=== PATIENT | female | born 1990 | race Caucasian/White ===

== ENCOUNTER 2018-02-09 09:54 | Emergency (ER) | payer OTHER, SELFPAY ==
[2018-02-09 09:55] VITALS: BP 155/88; PULSE 102; RESP 16; TEMP 36.8; O2SAT 99; BMI 30.1
--- NOTE | 2018-02-09 10:10 | CT_ITS ---
STUDY: CT ABDOMEN AND PELVIS WITH CONTRAST REASON FOR EXAM: Female, 27 years old. Left lower quadrant pain. History of prior right ectopic . RADIATION DOSAGE (If Supplied By Facility): CTDIvol = ( 10.69 ) mGy, DLP = ( 714.05 ) mGycm TECHNIQUE: Transaxial images were obtained from the dome of the diaphragm to the symphysis pubis without oral contrast. 100 ml of Isovue 300 contrast was administered. Sagittal and coronal images were reconstructed. Individualized dose optimization techniques were used for this CT. COMPARISON: Comparison is made with prior study dated January 17, 2017. FINDINGS: Mild degree of bibasilar atelectasis. The visualized portions of the heart are within normal limits. Normal liver. Normal gallbladder and extrahepatic biliary system. Normal spleen. Normal pancreas. Normal bilateral adrenal glands. Normal right kidney. Normal left kidney. There is a small hiatal hernia. Normal small intestine. There are multiple colonic diverticula consistent with diverticulosis. The appendix is visualized and appears normal. Normal abdominal aorta. Normal inferior vena cava. Normal retroperitoneum. Normal urinary bladder. Follicles are seen in both ovaries. Normal abdominal wall. Normal osseous structures. CT/Abdomen/Pelvis W IV Cont ONLY IMPRESSION: Sigmoid diverticula. Electronically Signed: Vance Laboy MD at 12:28 EDT Tel [phone], Service support ,
--- NOTE | 2018-02-09 10:12 | ED.VISSUMM ---
- ER Visit Summary Date of Service: 02/09/18 Chief Complaint: Abdominal pain History of Present Illness: The patient is a 27 F that last evening she developed a sharp constant pain in the left lower quadrant. She has a history of diverticulosis. This was discovered on a CT of the abdomen pelvis last year following a salpingo-oophorectomy secondary to ectopic . Patient notes no diarrhea or blood in the stool. She denies any urinary symptoms. No fevers. Physical Examination: Afebrile vital signs are stable Gen: Well-nourished well-developed Head: Normocephalic atraumatic Eyes: Perrl EOMI ENT: TMs clear no rhinorrhea moist mucous membranes Neck: Supple no lymphadenopathy no JVD nontender CVS: Regular rate rhythm no murmurs normal S1-S2 Respiratory: No distress clear to auscultation bilaterally chest nontender Abdomen: Soft tender to palpation with guarding and rebound in the left lower quadrant nondistended normal bowel sounds no masses Back: Nontender Extremity: Nontender no edema Skin: Normal color no rash Neuro: alert orientated ?3 CN II-XII intact normal strength sensation reflexes gait cerebellar Psych: Normal affect normal mood Test Results: White blood cell count is normal. Urinalysis is negative. CT abdomen pelvis demonstrates sigmoid diverticulosis. Emergency Department Course and Treatment: She received morphine and Zofran. Clinically she has diverticulitis. I am going to treat her with Cipro and Flagyl and a few [place]. She is to follow-up with primary care if not improving or return if worsening. Impression: 1. Sigmoid diverticulosis 2. Acute abdominal pain This note was generated with [employer] dictation software. It may contain incorrect words, spelling, and punctuation that were not noted in review of the chart prior to signing ED Disposition - Plan for ED Patient: Disposition: Home or Assisted Living Chief Complaint: Abd Pain Instructions: ED Diverticulosis Prescriptions: Hydrocodone Bitart/Apap 5-325 [[place] 5/325] 1 tab PO Q6H PRN PRN 3 Days #12 tab PRN Reason: Pain Metronidazole [Flagyl] 500 mg PO Q8 #30 tab Ciprofloxacin [Cipro] 500 mg PO BID #20 tab Referrals: Denton Harrison MD [STAFF PHYSICIAN] - As Needed
[2018-02-09 10:32] LABS: Absolute Lymphocyte Count 2.85 X10^3/ul (0.83-4.51); Absolute Neutrophil Count 5.5 X10^3/uL (2.0-7.7); Basophil# 0.06 X10^3/uL; Basophil% 0.6 % (0-1); Eosinophils% 5.3 % (0-5); Hematocrit 42.8 % (37-47); Hemoglobin 14.4 g/dl (12.0-15.0); Lymphocyte # 2.85 X10^3/ul (4.0); Lymphocyte % 30.2 % (19-41); Mean Corp Hgb Conc 33.6 g/gl (32-36); Mean Corpuscular Hgb 30.6 pg (27.0-32.0); Mean Corpuscular Volume 90.9 fL (81-99); Mean Platelet Vol. 9.6 fl (6.2-12.0); Monocyte# 0.52 X10^3/uL; Monocyte% 5.5 % (0-10); Neutrophil # 5.47 X10^3/uL (2.7-7.7); Neutrophil % 58.1 % (47-70); Platelet Count 333 K/mm3 (150-450); RBC Distribution Width CV 13.2 % (11.6-14.6); RBC Distribution Width SD 43.6 fl (35.1-43.9); Red Blood Count 4.71 M/mm3 (4.2-5.4); White Blood Count 9.4 K/mm3 (4.4-11.0)
[2018-02-09 10:32] LABS: Bacteria 0 SEEN /hpf (None Seen); Mucous, Urine 0 SEEN /hpf (<or=2+); Red Blood Cells-Urine 0 SEEN /hpf (0-5); White Blood Cells 0 SEEN /hpf (0-5)
[2018-02-09 10:37] LABS: POSITIVE COUNT NO; POSITIVE DIFFERENTIAL NO; POSITIVE MORPHOLOGY NO
[2018-02-09 10:41] LABS: ALB/GLOB Ratio 1.1 RATIO (0.9-2.4); AST(SGOT) 14 U/L (15-37); Alanine Aminotransfer ALT/SGPT 26 U/L (13-56); Albumin, Serum 4.2 g/dL (3.2-5.0); Alkaline Phosphatase 72 U/L (45-117); Anion Gap 8 (5-15); BUN 14 mg/dL (7-18); BUN/Creat Ratio 21.5 RATIO (10-20); Calcium,Total 8.8 mg/dL (8.5-10.1); Chloride 108 mmol/L (98-107); Creatinine, Serum 0.65 mg/dL (0.55-1.02); EST Glomerular Filtration Rate 114 mL/min (>60); Est Glom Filt Rate - Afr Amer 138 mL/min (>60); Estimated Creatinine Clearance 105.64 ml/min; Globulin 3.8 g/dL (2.2-4.2); Glucose 91 mg/dL (74-106); Potassium 3.8 mmol/L (3.5-5.1); Sodium Level 140 mmol/L (136-145)
[2018-02-09 10:49] LABS: Color, Urine Yellow (Yellow); Glucose, Dipstick Normal (Normal); Ketone-Dipstick Negative (Negative); Leukocyte Esterase-Dipstick 25 /ul (Negative); Nitrite-Dipstick Negative (Negative); Occult Blood-Urine Negative /ul (Negative); Protein-Dipstick Negative (Negative); Urine Bilirubin Dipstick Negative (Negative); Urine Clarity Clear (Clear); Urine Urobilinogen Normal (Normal)
[2018-02-09 10:57] LABS: Internal QC Validated? YES +Cl - CLEAR BKGD; Pregnancy, Urine Negative Negative
[2018-02-09 11:03] LABS: Squamous Epithelial Cells - UA 0-5 SEEN /hpf (5-10)
[2018-02-09] MEDS: Morphine 4 MG/ML Syringe IV (11:15)
[2018-02-09] MEDS: Ondansetron 4 MG/2 ML Vial IV (11:16)
[2018-02-09 12:36] VITALS: BP 131/87; PULSE 71; RESP 16; O2SAT 97
[2018-02-09 12:49] VITALS: BP 138/79; PULSE 81; RESP 16; O2SAT 98
== END 2018-02-09 12:50 | disposition home or self-care (01) ==
PROVIDERS: Emergency Provider Emergency Medicine
DX: R10.9 Unspecified abdominal pain (principal); K57.30 Diverticulosis of large intestine without perforation or abscess without bleeding; Z72.0 Tobacco use
CPT/HCPCS: 74177; 80053; 81001; 81025; 85025; 96374; 96375; 99283; Q9967; A4216; J2405

== ENCOUNTER 2018-03-09 11:00 | Emergency (ER) | payer OTHER, SELFPAY ==
[2018-03-09 11:01] VITALS: BP 147/81; PULSE 92; RESP 16; TEMP 37; O2SAT 96; BMI 30.7
--- NOTE | 2018-03-09 11:08 | RAD_ITS ---
STUDY: X-RAY - RIGHT FOOT CLINICAL: Female, 27 years old. Pain along the first metatarsophalangeal joint following injury. TECHNIQUE: 3 view(s) of the foot. COMPARISON: None. FINDINGS: There is a plantar calcaneal spur. Normal visualized subtalar, talonavicular, calcaneocuboid, tarsal and tarsometatarsal articulations. Normal metatarsi. Normal metatarsophalangeal joint of the great toe. There is a bipartite tibial sesamoid. Normal interphalangeal joint of the great toe. Normal phalanges of the great toe. Normal second through fifth metatarsophalangeal joints. Normal interphalangeal joints and phalanges of the lesser toes. The soft tissue structures are unremarkable. RAD/Foot min 3 Views IMPRESSION: Small plantar spur. Electronically Signed: Vance Laboy MD at 12:14 EDT Tel [phone], Service support ,
--- NOTE | 2018-03-09 11:13 | ED.VISSUMM ---
- ER Visit Summary Date of Service: 03/09/18 Chief Complaint: Right foot injury History of Present Illness: The patient is a 27 F who dropped a dog gate onto her right foot yesterday. She was not wearing shoes at the time. Patient states she wrapped it last night but today has pain anytime she dorsiflexes her toes. She denies paresthesias. Physical Examination: Vital signs are unremarkable. Patient sitting in bedside chair no acute distress. Right lower extremity examination reveals mild erythema with tenderness along the right great toe and along the first metatarsal. There is minimal edema. She has normal sensation and cap refill. She does have increased pain with dorsiflexion but does have full range of motion. Test Results: Right foot x-ray shows a small plantar spur but no evidence of fracture. Emergency Department Course and Treatment: Patient's foot was wrapped with an Jonathan wrap. She will continue to use Tylenol or ibuprofen as needed. Treatment Plan: [] Disposition: Discharge Impression: Crush injury right foot This note was generated with [employer] dictation software. It may contain incorrect words, spelling, and punctuation that were not noted in review of the chart prior to signing ED Disposition - Plan for ED Patient: Chief Complaint: Lower Extremity Injury Referrals: Care Physician,No Primary [Primary Care Provider] -
--- NOTE | 2018-03-09 12:30 | ED.DEP ---
ED Disposition - Plan for ED Patient: Disposition: Home or Assisted Living Chief Complaint: Lower Extremity Injury Instructions: ED Crush Injury Toe No Fx Referrals: Denton Harrison MD [STAFF PHYSICIAN] - As Needed
[2018-03-09 12:37] VITALS: BP 132/78; PULSE 82; RESP 16; O2SAT 98
== END 2018-03-09 12:37 | disposition home or self-care (01) ==
PROVIDERS: Emergency Provider Emergency Medicine
DX: S97.81XA Crushing injury of right foot, initial encounter (principal); W20.8XXA Other cause of strike by thrown, projected or falling object, initial encounter; Y93.9 Activity, unspecified; Y92.89 Other specified places as the place of occurrence of the external cause; Y99.9 Unspecified external cause status; Z72.0 Tobacco use; M76.891 Other specified enthesopathies of right lower limb, excluding foot
CPT/HCPCS: 73630; 99282

== ENCOUNTER 2018-08-04 17:59 | Emergency (ER) | payer OTHER, SELFPAY ==
[2018-08-04 18:00] VITALS: BP 146/95; PULSE 105; RESP 16; TEMP 36.4; O2SAT 98; BMI 30.1
--- NOTE | 2018-08-04 18:38 | ED.VISSUMM ---
- ER Visit Summary Date of Service: 08/04/18 Chief Complaint: Atraumatic left flank pain History of Present Illness: The patient is a 28 F past medical history of ovarian cyst. Patient is also had a prior right-sided ectopic for which she had that surgically removed in the tube. States last 2 days she has had left flank pain. At times it is worse. She denies any fever. Denies any trauma. Denies any dysuria or hematuria. She has never had a kidney stone. She has never had back surgery. She denies any radiation to her legs. She denies any numbness or tingling or weakness in her legs. Physical Examination: Well-appearing young female. present in the room. Vital signs are stable afebrile. H EENT exam unremarkable. Neck nontender. Lungs there to auscultation bilaterally. Heart regular rhythm no murmur. Abdomen soft nondistended normal bowel sounds no peritoneal signs. She is very minimal left lower quadrant tenderness. No hernias or masses. She is moving all 4 extremities are neurovascular intact. She has normal motor strength and sensation of both the upper and lower extremities. No cauda equina. No saddle anesthesia. Negative straight leg raise bilaterally. 5 out of 5 dorsi and plantar flexion. Negative straight leg raise. Back the spine is completely nontender from the cervical spine all the way down to the lumbar spine. Her right paraspinal area is nontender left paraspinal lower back and flank area is tender. This may be musculoskeletal. There is no ecchymosis or bruising there is no redness or warmth. Neurologic exam normal. Test Results: Urinalysis no signs of infection nor any blood. Urine test negative. Emergency Department Course and Treatment: Patient deferred any medications at this time. I did review old visits she has had multiple prior CTs of the abdomen and pelvis basically no prior history of any kidney stones seen. She has had diverticulosis but never had diverticulitis. Exam at 2044 patient is doing well. Abdomen is benign. She has had prior CTs of her abdomen none of which ever showed any kidney stones. She denied discussed her test results this very well may be musculoskeletal back pain. It could also be atypical presentation of a left ovarian cyst. She will follow-up if not improving. She only wants Tylenol and Motrin for pain. Treatment Plan: Motrin for pain. Hot shower warm bath. Follow-up if not improving. Disposition: Discharge Impression: Acute left flank pain related to musculoskeletal etiology. This note was generated with [employer] dictation software. It may contain incorrect words, spelling, and punctuation that were not noted in review of the chart prior to signing ED Disposition - Plan for ED Patient: Disposition: Home or Assisted Living Chief Complaint: Back Instructions: ED Neck Back Pain General Referrals: Giuseppe Fitzgerald MD [STAFF PHYSICIAN] - 3-5 Days if not improving Additional Instructions: Warm bath. To relax muscles. Massage. Motrin for pain and inflammation. This is not improving this could be atypical presentation of a left ovarian cyst. I gave you primary care physician to follow-up with.
[2018-08-04 18:48] LABS: Bacteria 0 SEEN /hpf (None Seen); Mucous, Urine 0 SEEN /hpf (<or=2+); Squamous Epithelial Cells - UA 0 SEEN /hpf (5-10)
[2018-08-04 18:51] LABS: Color, Urine Yellow (Yellow); Glucose, Dipstick Normal (Normal); Ketone-Dipstick Negative (Negative); Leukocyte Esterase-Dipstick 25 /ul (Negative); Nitrite-Dipstick Negative (Negative); Occult Blood-Urine 10 /ul (Negative); Protein-Dipstick Negative (Negative); Specific Gravity, Urine 1.015 (1.002-1.030); Urine Bilirubin Dipstick Negative (Negative); Urine Clarity Clear (Clear); Urine Urobilinogen Normal (Normal)
[2018-08-04 19:08] LABS: Internal QC Validated? YES +Cl - CLEAR BKGD; Pregnancy, Urine Negative Negative
[2018-08-04 19:32] LABS: Red Blood Cells-Urine 0-5 SEEN /hpf (0-5); White Blood Cells 0-5 SEEN /hpf (0-5)
--- NOTE | 2018-08-04 20:51 | ED.DEP ---
ED Disposition - Plan for ED Patient: Disposition: Home or Assisted Living Chief Complaint: Back Instructions: ED Neck Back Pain General Referrals: Giuseppe Fitzgerald MD [STAFF PHYSICIAN] - 3-5 Days if not improving Additional Instructions: Warm bath. To relax muscles. Massage. Motrin for pain and inflammation. This is not improving this could be atypical presentation of a left ovarian cyst. I gave you primary care physician to follow-up with.
[2018-08-04 20:53] VITALS: BP 121/66; PULSE 82; RESP 18; O2SAT 97
== END 2018-08-04 20:55 | disposition home or self-care (01) ==
PROVIDERS: Emergency Provider Emergency Medicine
DX: R10.9 Unspecified abdominal pain (principal); K57.90 Diverticulosis of intestine, part unspecified, without perforation or abscess without bleeding; M54.9 Dorsalgia, unspecified; Z72.0 Tobacco use
CPT/HCPCS: 81001; 81025; 99282

== ENCOUNTER 2018-09-30 09:22 | Emergency (ER) | payer OTHER, SELFPAY ==
[2018-09-30 09:23] VITALS: BP 137/75; PULSE 121; RESP 18; TEMP 36.4; O2SAT 99; BMI 30.1
--- NOTE | 2018-09-30 09:33 | RAD_ITS ---
STUDY: X-RAY - RIGHT WRIST REASON FOR EXAM: Female, 28 years old. Ane. TECHNIQUE: 3 view(s) of the wrist were obtained. COMPARISON: None. FINDINGS: Normal visualized distal radius and ulna. Normal radiocarpal articulation. Normal distal radioulnar articulation. Normal carpal bones. Normal carpal articulations. Normal carpometacarpal articulation of the thumb. Normal second through fifth carpometacarpal articulations. Normal visualized metacarpal bones. The soft tissue structures are unremarkable. RAD/Wrist min 3 Views IMPRESSION: Normal x-ray examination of the wrist. Electronically Signed: Vance Laboy MD at 10:07 EST Tel [phone], Service support ,
--- NOTE | 2018-09-30 09:36 | ED.VISSUMM ---
- ER Visit Summary Date of Service: 09/30/18 Chief Complaint: Right wrist pain History of Present Illness: The patient is a 28 F who states that a couple days ago she was at work when she went to lift something and felt discomfort in the right wrist. Since that time she has had progressively worsening pain. She feels it along the extensor tendon of her right thumb. She notes pain with flexion extension and with movement of the thumb. No fevers. No rashes. 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 [employer] Physical Examination: Afebrile vital signs stable she will triage heart rate of 121 was significantly lowered on my examination with a heart rate of 82 Gen: Well-nourished well-developed Head: Normocephalic atraumatic Eyes: Perrl EOMI ENT: TMs clear no rhinorrhea moist mucous membranes Neck: Supple no lymphadenopathy no JVD nontender CVS: Regular rate rhythm no murmurs normal S1-S2 Respiratory: No distress clear to auscultation bilaterally chest nontender Abdomen: Soft nontender nondistended normal bowel sounds no masses Back: Nontender Extremity: I do not appreciate any thenar muscle wasting. Sensory is normal. Patient has a positive Emmanuel test. There is tenderness along the tendons of the dorsal surface right thumb Skin: Normal color no rash Neuro: alert orientated ?3 CN II-XII intact normal strength sensation reflexes gait cerebellar Psych: Normal affect normal mood Test Results: Wrist films were obtained. These were negative for acute. Emergency Department Course and Treatment: The patient will have a Velcro thumb spica splint. She is to be scheduled on anti-inflammatories. I will refer to orthopedics. Impression: 1. De Quervain's tenosynovitis of the right wrist This note was generated with [employer] dictation software. It may contain incorrect words, spelling, and punctuation that were not noted in review of the chart prior to signing ED Disposition - Plan for ED Patient: Disposition: Home or Assisted Living Chief Complaint: Upper Extremity Injury Instructions: ED De Quervain Tenosynovitis Prescriptions: Ibuprofen [Motrin] 800 mg PO TID #21 tab Referrals: Sunil King DO [STAFF PHYSICIAN] - 10-14 Days if not better Additional Instructions: Scheduled anti-inflammatories (see prescription) for 1 week Ice for 20-minute sessions Thumb spica splint at work and during sleep. You may remove it for showering. If no improvement please follow-up with orthopedics see referral
--- OUTSIDE RECORDS SUMMARY | 2018-11-25 11:48 | XMS RPT_ITS ---
:1990 Author Organization [facility] Care Team Providers Name Role Phone Primay Care Physicia, No Primary Care Unavailable Andrews Ospina Attending Unavailable Primay Care Physicia, No Primary Care Unavailable Jyoti Josue Attending Unavailable Primay Care Physicia, No Primary Care Unavailable Bernabe Sorto Attending Unavailable Yanira Shelley Attending Unavailable Primay Care Physicia, No Referring Unavailable Yanira Shelley Attending Unavailable Primay Care Physicia, No Referring Unavailable Primay Care Physicia, No Primary Care Unavailable Andrews Ospina Attending Unavailable PROBLEMS PROBLEMS DATE TYPE CONDITION / CODE ATTENDING STATUS SOURCE 08/24/2018 Unknown E28.2 - Polycystic Marcanthony, Active [place] ovarian syndrome / [facility] E28.2(ICD-10) Hospital Repository 08/24/2018 Unknown N80.9 - Marcanthony, Active [place] Endometriosis, [facility] unspecified / Hospital N80.9(ICD-10) Repository 08/24/2018 Unknown Z30.430 - Encounter Marcanthony, Active [place] for insertion of [facility] Hospital contraceptive device Repository / Z30.430(ICD-10) 08/24/2018 Unknown Z97.5 - Presence of Marcanthony, Active [place] (intrauterine) [facility] contraceptive device Hospital / Z97.5(ICD-10) Repository 02/09/2018 Unknown K57.32 - Andrews Ospina Active [place] Diverticulitis of [facility] large intestine [facility] without perforation Repository or abscess without bleeding / K57.32(ICD-10) PROCEDURES PROCEDURES No Procedure Records FoundRESULTS RESULTS EMERGENCY DEPARTMENT Observed: 09/30/2018 Status: F Source: [place] SUMMARY 5:46 PM [facility] REPOSITORY [facility] Medical Records Department [address] [place] [address] Emergency Department Summary 09/30/18 0936 MR#: [id number] Acct: [id number] Name: PAVITHRA QUEZADA Rep #: [id number] : 1990 28 From: Andrews Ospina DO PCP: Care Physician, No Primary Status: DEP ER - ER Visit Summary Date of Service: 09/30/18 Chief Complaint: Right wrist pain History of Present Illness: The patient is a 28 F who states that a couple days ago she was at work when she went to lift something and felt discomfort in the right wrist. Since that time she has had progressively worsening pain. She feels it along the extensor tendon of her right thumb. She notes pain with flexion extension and with movement of the thumb. No fevers. No rashes. 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 [employer] Physical Examination: Afebrile vital signs stable she will triage heart rate of 121 was significantly lowered on my examination with a heart rate of 82 Gen: Well-nourished well-developed Head: Normocephalic atraumatic Eyes: Perrl EOMI ENT: TMs clear no rhinorrhea moist mucous membranes Neck: Supple no lymphadenopathy no JVD nontender CVS: Regular rate rhythm no murmurs normal S1-S2 Respiratory: No distress clear to auscultation bilaterally chest nontender Abdomen: Soft nontender nondistended normal bowel sounds no masses Back: Nontender Extremity: I do not appreciate any thenar muscle wasting. Sensory is normal. Patient has a positive Emmanuel test. There is tenderness along the tendons of the dorsal surface right thumb Skin: Normal color no rash Neuro: alert orientated 3 CN II-XII intact normal strength sensation reflexes gait cerebellar Psych: Normal affect normal mood Test Results: Wrist films were obtained. These were negative for acute. Emergency Department Course and Treatment: The patient will have a Velcro thumb spica splint. She is to be scheduled on anti-inflammatories. I will refer to orthopedics. Impression: 1. De Quervain's tenosynovitis of the right wrist This note was generated with [employer] dictation software. It may contain incorrect words, spelling, and punctuation that were not noted in review of the chart prior to signing ED Disposition - Plan for ED Patient: Disposition: Home or Assisted Living Chief Complaint: Upper Extremity Injury Instructions: ED De Quervain Tenosynovitis Prescriptions: Ibuprofen [Motrin] 800 mg PO TID #21 tab Referrals: Sunil King DO [STAFF PHYSICIAN] - 10-14 Days if not better Additional Instructions: Scheduled anti-inflammatories (see prescription) for 1 week Ice for 20-minute sessions Thumb spica splint at work and during sleep. You may remove it for showering. If no improvement please follow-up with orthopedics see referral What to do if you have Problems For any increased pain, shortness of breath, bleeding, nausea or vomiting, chest pain, or any unexpected problems, contact your Primary Care Provider. Call [facility] ([phone]) or report to the closest Emergency Room. Call 911 if necessary. 09/30/18 1746 <Electronically signed by Andrews Ospina DO> Date Andrews Ospina DO Cosigner Signature (If Indicated): Date CC: No Primary Care Physician WRIST MIN 3 VIEWS Observed: 09/30/2018 Status: F Source: [place] 9:33 AM [facility] Imaging Services [address] [place] [id number] Wrist min 3 Views MR#: [id number] Acct: [id number] Name: PAVITHRA QUEZADA Rep #: [id number] : 1990 F 28 From: Vance Laboy MD PCP: Care Physician, No Primary Status: [facility] ER Study: Wrist min 3 Views Date of Exam: 09/30/18 Exam# [id number] Ordering Dr: Andrews Ospina DO STUDY: X-RAY - RIGHT WRIST REASON FOR EXAM: Female, 28 years old. Ane. TECHNIQUE: 3 view(s) of the wrist were obtained. COMPARISON: None. FINDINGS: Normal visualized distal radius and ulna. Normal radiocarpal articulation. Normal distal radioulnar articulation. Normal carpal bones. Normal carpal articulations. Normal carpometacarpal articulation of the thumb. Normal second through fifth carpometacarpal articulations. Normal visualized metacarpal bones. The soft tissue structures are unremarkable. RAD/Wrist min 3 Views IMPRESSION: Normal x-ray examination of the wrist. 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: No Is patient in pain?: No Allergies Sulfa (Sulfonamide Antibiotics) Allergy (Verified 08/24/18 09:26) Unknown Is last menstrual period known: Yes Last Menstral Period: 07/21/18 Post menopausal: No Patient : No : No PFSH PFSH Medical History Ectopic (Acute) History of PCOS (Acute) History of ovarian cyst (Acute) Surgical History History of laparoscopy (Acute) Family History Grandfather Diabetes Heart disease Social History Smoking Status: Current every day smoker alcohol intake: current details: social substance use type: does not use caffeine: Yes what type of physical activity do you participate in: none seatbelt use: always do you feel safe at home: Yes additional social history: single- [employer] Pregancy History 2 Elective abortions Hx Para 1 Spontaneous abortions Past Pregnancies Del. DatName GA/WeeksOutcome Route Bt WeigInfant GLamorgan LgAnesthesDel LocaProviderFOB e ht en ia tn Unknown 2007 Nat39 live birNSVD 6lbs 11oMale [facility] th - ful z l term HPI MIRENA INSERTION: Details: PAVITHRA QUEZADA is a 28 year old who presents for iud insertion. Female Reproductive History Last Menstral Period: 07/21/18 Questions: Metorrhagia: No, Sexually active: Yes ROS Const Constitutional: Reports system reviewed and no additional complaints, except as docu; denies chills, fever(s), weight loss or weight gain GI GI: Reports as per HPI; denies vomiting, nausea, constipation, cramping, bloating or abdominal pain : Reports as per HPI; denies vaginal dryness, vaginal discharge, urinary urgency, urinary frequency or urinary incontinence Exam Const General: cooperative, healthy appearing, comfortable, well developed Orientation: alert HENNH Head: normal to inspection Resp Effort AND Inspection: normal respiratory effort GI Inspection: normal to inspection, non-distended Palpation: soft, no hepatosplenomegaly, no guarding External Female Exam: normal external appearance, normal appearance of the urethra Urethra: normal appearance of the urethra Speculum Exam - Vagina: normal appearance of the vagina, normal vaginal discharge, no lesions Speculum Exam - Cervix: normal appearance of the cervix, nontender Bimanual Exam- Vagina AND Uterus: No cervical tenderness, normal bimanual exam, uterine mobility normal, uterine consistency normal, uterine shape normal, uterine size normal, uterus non-tender Bimanual Exam- Adnexa, other: normal adnexae, no adnexal masses Office Procedures Mirena IUD IUD GC/Chlamydia:: not done Test: Yes Negative Consent Signed: Yes Time out checklist: patient, procedure, site marked/identified, positioning of patient, supplies available, allergies confirmed, team agrees on procedure IUD: Yes Mirena Time out time: 09:40 Details: Sign in Communication: Completed Sign out documentation: Completed The uterus sounded to 7 cm. After prepping the cervix with betadine and using sterile technique, the cervix was grasped with a single tooth tenaculum and the IUD was inserted without difficulty and the string was cut to 3cm from the external os of the cervix. All instruments were removed from the vagina and excellent hemostasis was noted. Procedure Summary: patient tolerated the procedure well without complication. Office Meds levonorgestrel Performing Provider: Yanira Shelley MD Administered by: Mariann Romero on 08/24/18 09:32 Dose Route Admin Location Lot Number Expiration DateNDC Clinical Applications Specialist 1 insert Intrauterine uterus [id number] 03/01/21 95654-805-14 [employer] Assessment AND Plan Problems 1. Endometriosis N80.9 mirena iud 2. PCOS (polycystic ovarian syndrome) E28.2 3. 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 Observed: 08/13/2018 Status: F Source: [place] REPORT 2:46 PM [facility] [address] [place] [address] OFFICE VISIT Date of Service: 08/13/18 MR#: [id number] Acct: [id number] Name: PAVITHRA QUEZADA Rep #: [id number] : 1990 Provider: Yanira Shelley MD Age/Sex: 28/F Location: [facility] [place] Status: Signed Intake Vital Signs10/12/18 Height 5 ft 3 in 08/13/18 Weight: 172 lb 08/13/18 Body Mass Index (BMI) 30.4 08/13/18 Blood Pressure 130/82 H Intake Visit Reasons: F/U ER Chief Complaint: ER follow Up Ovarian Cyst Armature Connector Required: No Is patient in pain?: Yes Allergies Sulfa (Sulfonamide Antibiotics) Allergy (Verified 08/13/18 14:13) Unknown Medications NK 03/09/18 [History Confirmed 08/13/18] Is last menstrual period known: Yes Last Menstral Period: 07/21/18 Post menopausal: No Patient : No : No [facility] Medical History Ectopic (Acute) History of PCOS (Acute) History of ovarian cyst (Acute) Surgical History History of laparoscopy (Acute) Family History Grandfather Diabetes Heart disease Social History Smoking Status: Current every day smoker alcohol intake: current details: social substance use type: does not use caffeine: Yes what type of physical activity do you participate in: none seatbelt use: always do you feel safe at home: Yes additional social history: single- [employer] [facility] F/U ER: Details: PAVITHRA QUEZADA is a 28 year old who presents for signfiicant dysmenorrhea, she misses work due to the pain. she has normal bleeding but very painful. she had quesitonable endoemtriosis in the past- had a chocolate cyst removed. and she also had an ectopic . she ahs tried hormones but she has significant migraines without aura. she has tried depo provera and nexplanon and those didn't work. she didn't like taking clomid that she has been on in the past de to menopausal side effects. she has never tried the mirena iud. Female Reproductive History Last Menstral Period: 07/21/18 Cycle Length: >35 Questions: Metorrhagia: No, Sexually active: Yes, Dyspareunia: Yes Pregancy History 2 Elective abortions Hx Para 1 Spontaneous abortions Past Pregnancies Del. DatName GA/WeeksOutcome Route [facility] WeigInjimt GLamorgan LgAnesthesDel LocaProviderFOB e ht en ia tn Unknown 2007 Nat39 live birNSVD 6lbs 11oMale [facility] th - ful z l term ROS Const Constitutional: Reports headache(s); denies poor appetite, fever(s), increased appetite, weight gain, weight loss or fatigue ENT ENT: Denies dry mouth GI GI: Reports as per HPI, nausea, abdominal pain, bloating and change in stools; denies vomiting or constipation : Reports as per HPI; denies difficulty urinating, blood in urine, pelvic pain, urinary frequency, urinary incontinence, urinary hesitancy, urinary urgency, vaginal discharge, vaginal dryness, vaginal odor, vaginal itching, other, painful urination or nipple discharge Skin Skin/Breast: Denies hair loss, change in hair, dry skin, breast pain, breast skin changes, breast lump or nipple discharge Exam Const General: cooperative, healthy appearing, comfortable, no acute distress, well developed Nutritional Appearance: average body habitus Orientation: alert HENMT Head: normal to inspection, normocephalic Ears: hearing grossly normal bilaterally, external ears normal Nose: external nose normal, nares normal Face and sinus: normal facial exam Neck Neck: normal visual inspection, trachea midline, no lymphadenopathy Thyroid: thyroid normal Resp Effort AND Inspection: normal respiratory effort Musc Other: gross motor intact no deficits, full bilateral strength Skin General: no rashes or lesions noted Neuro Motor: muscle tone normal throughout Assessment AND Plan Problems 1. PCOS (polycystic ovarian syndrome) E28.2 2. Endometriosis N80.9 mirena iud Plan discussed and plan mirena iud insertion for endometriosis. discussed other options like danazol or depot lupron. plan for this. Coding Level of Care Code Off vis,new,level 3 Diagnoses PCOS (polycystic ovarian syndrome) E28.2 Endometriosis N80.9 08/13/18 1446 <Electronically signed by Yanira Shelley MD> Date Yanira Shelley MD Cosigner Signature: Date (if applicable) CC: EMERGENCY DEPARTMENT Observed: 08/05/2018 Status: F Source: [place] SUMMARY 12:30 AM [facility] [place] Medical Records Department [address] [place] [address] Emergency Department Summary 08/04/18 1838 MR#: [id number] Acct: [id number] Name: PAVITHRA QUEZADA Rep #: [id number] : 1990 28 From: Bernabe Sorto MD PCP: Care Physician, No Primary Status: DEP ER - ER Visit Summary Date of Service: 08/04/18 Chief Complaint: Atraumatic left flank pain History of Present Illness: The patient is a 28 F past medical history of ovarian cyst. Patient is also had a prior right-sided ectopic for which she had that surgically removed in the tube. States last 2 days she has had left flank pain. At times it is worse. She denies any fever. Denies any trauma. Denies any dysuria or hematuria. She has never had a kidney stone. She has never had back surgery. She denies any radiation to her legs. She denies any numbness or tingling or weakness in her legs. Physical Examination: Well-appearing young female. present in the room. Vital signs are stable afebrile. H EENT exam unremarkable. Neck nontender. Lungs there to auscultation bilaterally. Heart regular rhythm no murmur. Abdomen soft nondistended normal bowel sounds no peritoneal signs. She is very minimal left lower quadrant tenderness. No hernias or masses. She is moving all 4 extremities are neurovascular intact. She has normal motor strength and sensation of both the upper and lower extremities. No cauda equina. No saddle anesthesia. Negative straight leg raise bilaterally. 5 out of 5 dorsi and plantar flexion. Negative straight leg raise. Back the spine is completely nontender from the cervical spine all the way down to the lumbar spine. Her right paraspinal area is nontender left paraspinal lower back and flank area is tender. This may be musculoskeletal. There is no ecchymosis or bruising there is no redness or warmth. Neurologic exam normal. Test Results: Urinalysis no signs of infection nor any blood. Urine test negative. Emergency Department Course and Treatment: Patient deferred any medications at this time. I did review old visits she has had multiple prior CTs of the abdomen and pelvis basically no prior history of any kidney stones seen. She has had diverticulosis but never had diverticulitis. Exam at 2044 patient is doing well. Abdomen is benign. She has had prior CTs of her abdomen none of which ever showed any kidney stones. She denied discussed her test results this very well may be musculoskeletal back pain. It could also be atypical presentation of a left ovarian cyst. She will follow-up if not improving. She only wants Tylenol and Motrin for pain. Treatment Plan: Motrin for pain. Hot shower warm bath. Follow- up if not improving. Disposition: Discharge Impression: Acute left flank pain related to musculoskeletal etiology. This note was generated with [employer]ation software. It may contain incorrect words, spelling, and punctuation that were not noted in review of the chart prior to signing ED Disposition - Plan for ED Patient: Disposition: Home or Assisted Living Chief Complaint: Back Instructions: ED Neck Back Pain General Referrals: Giuseppe Fitzgerald MD [STAFF PHYSICIAN] - 3-5 Days if not improving Additional Instructions: Warm bath. To relax muscles. Massage. Motrin for pain and inflammation. This is not improving this could be atypical presentation of a left ovarian cyst. I gave you primary care physician to follow-up with. What to do if you have Problems For any increased pain, shortness of breath, bleeding, nausea or vomiting, chest pain, or any unexpected problems, contact your Primary Care Provider. Call [facility] ([phone]) or report to the closest Emergency Room. Call 911 if necessary. 08/05/18 0030 <Electronically signed by Bernabe Sorto MD> Date Bernabe Sorto MD Cosigner Signature (If Indicated): Date CC: No Primary Care Physician DISCHARGE INSTRUCTION Observed: 08/05/2018 Status: F Source: [place] 12:29 AM [facility] Medical Records Department [address] [place] [address] Discharge Instruction 08/04/182050 MR#: [id number] Acct: [id number] Name: PAVITHRA QUEZADA Rep #: [id number] : 1990 28 From: Bernabe Sorto MD PCP: Care Physician, No Primary Status: DEP ER ED Disposition - Plan for ED Patient: Disposition: Home or Assisted Living Chief Complaint: Back Instructions: ED Neck Back Pain General Referrals: Giuseppe Fitzgerald MD [STAFF PHYSICIAN] - 3-5 Days if not improving Additional Instructions: Warm bath. To relax muscles. Massage. Motrin for pain and inflammation. This is not improving this could be atypical presentation of a left ovarian cyst. I gave you primary care physician to follow-up with. What to do if you have Problems For any increased pain, shortness of breath, bleeding, nausea or vomiting, chest pain, or any unexpected problems, contact your Primary Care Provider. Call [facility] ([phone]) or report to the closest Emergency Room. Call 911 if necessary. 08/05/18 0029 <Electronically signed by Bernabe Sorto MD> Date Bernabe Sorto MD Cosigner Signature (If Indicated): Date CC: No Primary Care Physician ,URINE Collected: 08/04/2018 Status: F Source: [place] 6:52 PM [facility] Order Comment: Order Date: 08/04/18 Has pt arrived? Y TYPE CODE TESTS RESULT OUT OF REFERENCE UNITS RANGE LAB L400.8000 Negative Normal HCGUQUAL Negative Result Comment: Very dilute urine specimens, as indicated by a low specific gravity, may not contain loss prevention representative levels of hCG. If is still suspected, a first morning urine specimen should be collected 48 hours later and tested. Performed By: #### L400.7600 #### [facility] [address], [address] URINALYSIS, COMPLETE Collected: 08/04/2018 Status: F Source: [place] 6:44 PM [facility] Order Comment: Order Date: 08/04/18 How was Urine Obtained? AIRFRAME TECHNICIAN TO SPECIFY TYPE CODE TESTS RESULT OUT OF RANGE REFERENCE UNITS LAB L400.3000 Yellow COLOR Normal Yellow LAB L400.3050 Clear Normal CLARITY Clear LAB L400.3200 Normal mg/dl Normal GLUCOSE, UR Normal LAB L400.3300 Negative mg/dL Normal BILIRUBIN URINE Negative LAB L400.3400 Negative mg/dl Normal KETONE UR Negative LAB L400.3465 1.002-1.030 Normal SP.GR. DIPSTX 1.015 LAB L400.3550 5.0 - 8.0 pH UR Normal 6.0 LAB L400.3600 Negative mg/dl PROT Normal DIPSTX Negative LAB L400.3700 Normal mg/dl Normal UROBILI Normal LAB L400.3750 Negative Normal NITRITE UR Negative LAB L400.3780 Negative /ul High 10 OCCULT BLOOD-UR LAB L400.3800 Negative /ul High LEUK 25 ESTERASE LAB L400.4050 0-5 /hpf WBC Normal 0-5 SEEN LAB L400.4100 0-5 /hpf Normal RBC-UA 0-5 SEEN LAB L400.4150 5-10 /hpf SQUAM 0 Normal EPI SEEN LAB L400.4300 None Seen /hpf 0 Normal BACTERIA SEEN LAB L400.4350 <or=2+ /hpf 0 Normal MUCUS, URINE SEEN Performed By: #### L400.0001 #### [facility] [address] [facility] [place], [address] EMERGENCY DEPARTMENT Observed: 03/09/2018 Status: F Source: [place] SUMMARY 4:18 PM [facility] Medical Records Department [address] [place] [address] Emergency Department Summary 03/09/18 1113 MR#: [id number] Acct: [id number] Name: PAVITHRA QUEZADA Rep #: [id number] : 1990 27 From: Jyoti Josue MD PCP: Care Physician, No Primary Status: DEP ER - ER Visit Summary Date of Service: 03/09/18 Chief Complaint: Right foot injury History of Present Illness: The patient is a 27 F who dropped a dog gate onto her right foot yesterday. She was not wearing shoes at the time. Patient states she wrapped it last night but today has pain anytime she dorsiflexes her toes. She denies paresthesias. Physical Examination: Vital signs are unremarkable. Patient sitting in bedside chair no acute distress. Right lower extremity examination reveals mild erythema with tenderness along the right great toe and along the first metatarsal. There is minimal edema. She has normal sensation and cap refill. She does have increased pain with dorsiflexion but does have full range of motion. Test Results: Right foot x-ray shows a small plantar spur but no evidence of fracture. Emergency Department Course and Treatment: Patient's foot was wrapped with an Jonathan wrap. She will continue to use Tylenol or ibuprofen as needed. Treatment Plan: [] Disposition: Discharge Impression: Crush injury right foot This note was generated with [employer] dictation software. It may contain incorrect words, spelling, and punctuation that were not noted in review of the chart prior to signing ED Disposition - Plan for ED Patient: Chief Complaint: Lower Extremity Injury Referrals: Care Physician,No Primary [Primary Care Provider] - What to do if you have Problems For any increased pain, shortness of breath, bleeding, nausea or vomiting, chest pain, or any unexpected problems, contact your Primary Care Provider. Call [facility] ([phone]) or report to the closest Emergency Room. Call 911 if necessary. 03/09/18 8998 <Electronically signed by Jyoti Josue MD> Date Jyoti Josue MD Cosigner Signature (If Indicated): Date CC: No Primary Care Physician DISCHARGE INSTRUCTION Observed: 03/09/2018 Status: F Source: [place] 12:31 PM [facility] Medical Records Department [address] [place] [address] Discharge Instruction 03/09/18 1230 MR#: [id number] Acct: [id number] Name: PAVITHRA QUEZADA Rep #: [id number] : 1990 27 From: Jyoti Josue MD PCP: Care Physician, No Primary Status: REG ER ED Disposition - Plan for ED Patient: Disposition: Home or Assisted Living Chief Complaint: Lower Extremity Injury Instructions: ED Crush Injury Toe No Fx Referrals: Detnon Harrison MD [STAFF PHYSICIAN] - As Needed What to do if you have Problems For any increased pain, shortness of breath, bleeding, nausea or vomiting, chest pain, or any unexpected problems, contact your Primary Care Provider. Call [facility] ([phone]) or report to the closest Emergency Room. Call 911 if necessary. 03/09/18 1231 <Electronically signed by Jyoti Josue MD> Date Jyoti Josue MD Cosigner Signature (If Indicated): Date CC: No Primary Care Physician FOOT MIN 3 VIEWS Observed: 03/09/2018 Status: F Source: [place] 11:09 AM [facility] Imaging Services [address] [place] [id number] Foot min 3 Views MR#: [id number] Acct: [id number] Name: PAVITHRA QUEZADA Rep #: [id number] : 1990 F 27 From: Vance Laboy MD PCP: Svetlana Physician, No Primary Status: REG ER Study: Foot min 3 Views Date of Exam: 03/09/18 Exam# [id number] Ordering Dr: Jyoti Josue MD STUDY: X-RAY - RIGHT FOOT CLINICAL: Female, 27 years old. Pain along the first metatarsophalangeal joint following injury. TECHNIQUE: 3 view(s) of the foot. COMPARISON: None. FINDINGS: There is a plantar calcaneal spur. Normal visualized subtalar, talonavicular, calcaneocuboid, tarsal and tarsometatarsal articulations. Normal metatarsi. Normal metatarsophalangeal joint of the great toe. There is a bipartite tibial sesamoid. Normal interphalangeal joint of the great toe. Normal phalanges of the great toe. Normal second through fifth metatarsophalangeal joints. Normal interphalangeal joints and phalanges of the lesser toes. The soft tissue structures are unremarkable. RAD/Foot min 3 Views IMPRESSION: Small plantar spur. Electronically Signed: Vance Laboy MD at 12:14 EDT Tel [phone], Service support , CC: No Primary Care Physician; Jyoti Josue MD Clinical Informatics Spec: Signed EMERGENCY DEPARTMENT Observed: 02/11/2018 Status: F Source: [place] SUMMARY 3:09 PM [facility] Medical Records Department [address] [place] [address] Emergency Department Summary 02/09/18 1012 MR#: [id number] Acct: [id number] Name: PAVITHRA QUEZADA Rep #: [id number] : 1990 27 From: Andrews Ospina DO PCP: Care Physician, No Primary Status: DEP ER - ER Visit Summary Date of Service: 02/09/18 Chief Complaint: Abdominal pain History of Present Illness: The patient is a 27 F that last evening she developed a sharp constant pain in the left lower quadrant. She has a history of diverticulosis. This was discovered on a CT of the abdomen pelvis last year following a salpingo-oophorectomy secondary to ectopic . Patient notes no diarrhea or blood in the stool. She denies any urinary symptoms. No fevers. Physical Examination: Afebrile vital signs are stable Gen: Well-nourished well-developed Head: Normocephalic atraumatic Eyes: Perrl EOMI ENT: TMs clear no rhinorrhea moist mucous membranes Neck: Supple no lymphadenopathy no JVD nontender CVS: Regular rate rhythm no murmurs normal S1-S2 Respiratory: No distress clear to auscultation bilaterally chest nontender Abdomen: Soft tender to palpation with guarding and rebound in the left lower quadrant nondistended normal bowel sounds no masses Back: Nontender Extremity: Nontender no edema Skin: Normal color no rash Neuro: alert orientated 3 CN II-XII intact normal strength sensation reflexes gait cerebellar Psych: Normal affect normal mood Test Results: White blood cell count is normal. Urinalysis is negative. CT abdomen pelvis demonstrates sigmoid diverticulosis. Emergency Department Course and Treatment: She received morphine and Zofran. Clinically she has diverticulitis. I am going to treat her with Cipro and Flagyl and a few Primghar. She is to follow-up with primary care if not improving or return if worsening. Impression: 1. Sigmoid diverticulosis 2. Acute abdominal pain This note was generated with [employer] dictation software. It may contain incorrect words, spelling, and punctuation that were not noted in review of the chart prior to signing ED Disposition - Plan for ED Patient: Disposition: Home or Assisted Living Chief Complaint: Abd Pain Instructions: ED Diverticulosis Prescriptions: Hydrocodone Bitart/Apap 5-325 [Primghar 5/325] 1 tab PO Q6H PRN PRN 3 Days #12 tab PRN Reason: Pain Metronidazole [Flagyl] 500 mg PO Q8 #30 tab Ciprofloxacin [Cipro] 500 mg PO BID #20 tab Referrals: Denton Harrison MD [STAFF PHYSICIAN] - As Needed What to do if you have Problems For any increased pain, shortness of breath, bleeding, nausea or vomiting, chest pain, or any unexpected problems, contact your Primary Care Provider. Call [facility] ([phone]) or report to the closest Emergency Room. Call 911 if necessary. 02/11/18 1500 <Electronically signed by Andrews Ospina DO> Date Andrews Ospina DO Cosigner Signature (If Indicated): Date CC: No Primary Care Physician URINALYSIS, COMPLETE Collected: 02/09/2018 Status: F Source: [place] 10:26 AM [facility] Order Comment: Order Date: 02/09/18 Has pt arrived? Y How was Urine Obtained? CLEAN CATCH TYPE CODE TESTS RESULT OUT OF RANGE REFERENCE UNITS LAB L400.3000 Yellow COLOR Normal Yellow LAB L400.3050 Clear Normal CLARITY Clear LAB L400.3200 Normal mg/dl Normal GLUCOSE, UR Normal LAB L400.3300 Negative mg/dL Normal BILIRUBIN URINE Negative LAB L400.3400 Negative mg/dl Normal KETONE UR Negative LAB L400.3465 1.002-1.030 Normal SP.GR. DIPSTX 1.010 LAB L400.3550 5.0 - 8.0 pH UR Normal 7.0 LAB L400.3600 Negative mg/dl PROT Normal DIPSTX Negative LAB L400.3700 Normal mg/dl Normal UROBILI Normal LAB L400.3750 Negative Normal NITRITE UR Negative LAB L400.3780 Negative /ul Normal OCCULT BLOOD-UR Negative LAB L400.3800 Negative /ul High LEUK 25 ESTERASE LAB L400.4050 0-5 /hpf WBC 0 Normal SEEN LAB L400.4100 0-5 /hpf 0 Normal RBC-UA SEEN LAB L400.4150 5-10 /hpf SQUAM Normal EPI 0-5 SEEN LAB L400.4300 None Seen /hpf 0 Normal BACTERIA SEEN LAB L400.4350 <or=2+ /hpf 0 Normal MUCUS, URINE SEEN Performed By: #### L400.0001 #### [facility] [address] [place], [place], [address] ,URINE Collected: 02/09/2018 Status: F Source: [place] 10:26 AM [facility] Order Comment: Order Date: 02/09/18 Has pt arrived? Y TYPE CODE TESTS RESULT OUT OF REFERENCE UNITS RANGE LAB L400.8000 Negative Normal HCGUQUAL Negative Result Comment: Very dilute urine specimens, as indicated by a low specific gravity, may not contain loss prevention representative levels of hCG. If is still suspected, a first morning urine specimen should be collected 48 hours later and tested. Performed By: #### L400.7600 #### [facility] [address] [place], [place], [address] CBC W/DIFF, AUTOMATED Collected: 02/09/2018 Status: F Source: [place] 10:20 AM [facility] TYPE CODE TESTS RESULT OUT OF RANGE REFERENCE UNITS LAB L100.1000 4.4-11.0 K/mm3 Normal WBC 9.4 LAB L100.1200 4.2-5.4 M/mm3 Normal RBC 4.71 LAB L100.1300 12.0-15.0 g/dl Normal HGB 14.4 LAB L100.1400 37-47 % Normal HCT 42.8 LAB L100.1500 81-99 fL Normal MCV 90.9 LAB L100.1600 27.0-32.0 pg Normal MCH 30.6 LAB L100.1700 32-36 g/gl Normal MCHC 33.6 LAB L100.1810 11.6-14.6 % Normal RDW CV 13.2 LAB L100.1820 35.1-43.9 fl Normal RDW SD 43.6 LAB L100.1900 150-450 K/mm3 Normal PLT 333 LAB L100.2000 6.2-12.0 fl Normal MPV 9.6 LAB L100.2100 47-70 % Normal NEUT% 58.1 LAB L100.2200 19-41 % Normal LY% 30.2 LAB L100.2300 0-10 % Normal MONO% 5.5 LAB L100.2400 0-5 % High EO% 5.3 LAB L100.2500 0-1 % Normal BASO% 0.6 LAB L100.2550 0.0-0.9 % Normal IM GRAN % 0.300 Result Comment: IG% - Immature Granulocytes (promyelocytes, myelocytes and metamyelocytes) > 1% indicates that a LEFT SHIFT is Present. LAB L100.2620 2.0-7.7 X10 3/uL Normal Absolute Neut 5.5 LAB L100.2720 0.83-4.51 X10 3/ul Normal Absolute Lymph 2.85 Performed By: #### L100.0100 #### [facility] [address] [place], [address] COMPREHENSIVE METABOLIC Collected: 02/09/2018 Status: F Source: [place] 10:20 AM [facility] TYPE CODE TESTS RESULT OUT OF RANGE REFERENCE UNITS LAB L501.0100 74-106 mg/dL Normal GLU 91 Result Comment: Please note revised GLUCOSE reference range effective 2017. LAB L501.1000 7-18 mg/dL Normal BUN 14 LAB L501.1100 0.55-1.02 mg/dL Normal CREAT,SERUM 0.65 Result Comment: The validity of the calculated GFR AND GFRAA in patients over 70 years has not been determined. Clinical correlation is essential. LAB L501.1110 >60 mL/min Normal EST GFR 114 Result Comment: Non- GFR Calc LAB L501.1115 >60 mL/min Normal EST GFR - AA 138 Result Comment: GFR Calc LAB L501.1255 ml/min Normal Estimated CRCL 105.64 LAB L501.1300 10-20 RATIO High BUN/CRE 21.5 LAB L501.1500 6.4-8. g/dL 2 T PROT Normal 8.0 LAB L501.1800 3.2-5. g/dL 0 ALB Normal 4.2 LAB L501.1950 2.2-4. g/dL 2 GLOB Normal 3.8 LAB L501.2000 0.9-2. RATIO 4 A/G Normal 1.1 LAB L501.2200 8.5-10 mg/dL .1 CA Normal 8.8 LAB L501.4100 15-37 U/L Low AST 14 LAB L501.4305 45-117 U/L ALK P Normal 72 LAB L501.4405 13-56 U/L ALT Normal 26 Result Comment: Please note revised ALT reference range effective 2017. LAB L501.4600 0.20-1.00 mg/dL Normal T BILI 0.20 LAB L501.5300 136-145 mmol/L Normal NA 140 LAB L501.5600 3.5-5.1 mmol/L Normal K 3.8 LAB L501.5900 98-107 mmol/L High CL 108 LAB L501.6100 21.0-32.0 mmol/L Normal CO2 24.0 LAB L501.6200 5-15 Normal GAP 8 Performed By: #### L500.4050 #### [facility] [address] [place], [address] ABDOMEN/PELVIS W IV CONT Observed: 02/09/2018 Status: F Source: [place] ONLY 10:11 AM [facility] Imaging Services [address] [place] [address] Abdomen/Pelvis W IV Cont ONLY MR#: [id number] Acct: [id number] Name: PAVITHRA QUEZADA Rep #: [id number] : 1990 F 27 From: Vance Laboy MD PCP: Care Physician, No Primary Status: REG ER Study: Abdomen/Pelvis W IV Cont ONLY Date of Exam: 02/09/18 Exam# [id number] Ordering Dr: Andrews Ospina DO STUDY: CT ABDOMEN AND PELVIS WITH CONTRAST REASON FOR EXAM: Female, 27 years old. Left lower quadrant pain. History of prior right ectopic . RADIATION DOSAGE (If Supplied By Facility): CTDIvol = ( 10.69 ) mGy, DLP = ( 714.05 ) mGycm TECHNIQUE: Transaxial images were obtained from the dome of the diaphragm to the symphysis pubis without oral contrast. 100 ml of Isovue 300 contrast was administered. Sagittal and coronal images were reconstructed. Individualized dose optimization techniques were used for this CT. COMPARISON: Comparison is made with prior study dated January 17, 2017. FINDINGS: Mild degree of bibasilar atelectasis. The visualized portions of the heart are within normal limits. Normal liver. Normal gallbladder and extrahepatic biliary system. Normal spleen. Normal pancreas. Normal bilateral adrenal glands. Normal right kidney. Normal left kidney. There is a small hiatal hernia. Normal small intestine. There are multiple colonic diverticula consistent with diverticulosis. The appendix is visualized and appears normal. Normal abdominal aorta. Normal inferior vena cava. Normal retroperitoneum. Normal urinary bladder. Follicles are seen in both ovaries. Normal abdominal wall. Normal osseous structures. CT/Abdomen/Pelvis W IV Cont ONLY IMPRESSION: Sigmoid diverticula. Electronically Signed: Vance Laboy MD at 12:28 EDT Tel [phone], Service support , CC: No Primary Care Physician; Andrews Ospina DO Clinical Informatics Spec: Signed ALLERGIES ALLERGIES DATE TYPE / CODE NAME / CODE REACTION SEVERITY SOURCE 09/30/2018 Drug Sulfa Unknown Unknown [facility] [facility] Allergy/4160 (Sulfonamide [facility] 60576(SNOMED Antibiotics)/ Repository CT) [id number](RX NORM) ENCOUNTERS ENCOUNTERS ADMIT/DISCHARGE ACCOUNT ADMITTING ENCOUNTER LOCATION SOURCE NUMBER CLASS 09/30/2018/ [id number] Emergency Rubin [place] 8 4 [facility] ing:ED Repository 08/24/2018/ [id number] Ambulatory BMSBuilding:B [place] 8 6 [facility] Repository 08/13/2018/ [id number] Ambulatory BMSBuilding:B [place] 8 2 [facility] Repository 08/04/2018/ [id number] Emergency Rubin [place] 8 5 [facility] ing:ED Repository 03/09/2018/ [id number] Emergency [place] 8 0 [facility] ing:ED Repository 02/09/2018/ [id number] Emergency [place] 8 1 [facility] ing:ED Repository PAYERS PAYERS ENCOUNTER GUARANTOR PAYER SUBSCRIBER SOURCE 09/30/2018 PAVITHRA M Primary PAVITHRA Herrera [place] [id number] SPINK Insurance:CARESOURCE BLAIRDOB: [facility] [id number] [facility] [address]Hld: [phone]) Number: Repository [phone] ) [id number] Date:9634-46-48LE [address] [address]WH: 09/30/2018 Secondary NOT GIVENUNK [place] Insurance:SELF PAY [facility] Number: Effective Repository Date:2018-09-30 08/24/2018 PAVITHRA Herrera Primary PAVITHRA Herrera [place] [id number] [place] Insurance:CARESOURCE BLAIRDOB: [facility] [id number] [address]Ilk: [phone]) Number: Repository [phone] () [id number] Date:8363-58-42IS [address] [address]KF: 08/24/2018 Secondary NOT GIVENUNK [place] Insurance:SELF PAY [facility] Number: Effective Repository Date:2018-08-24 08/13/2018 PAVITHRA Herrera [facility] PAVITHRA Herrera [place] [id number] SPINK Insurance:CARESOURCE BLAIRDOB: [facility] [id number] [facility] [address]Xzj: (330) Number: Repository [phone] () [id number] Date:[id number] [address] [address]FB: 08/13/2018 Secondary NOT GIVENUNK [place] Insurance:SELF PAY [facility] Number: Effective Repository Date:2018-08-13 08/04/2018 Pavithra Herrera [facility] Pavithra Herrera [place] [id number] [place] Insurance:CARESOURCE BlairDOB: [facility] [id number] [address]Lpk: [phone]) Number: Repository [phone] () [id number] Date:6604-60-26CY [address] [address]BC: 08/04/2018 Secondary NOT GIVENUNK [place] Insurance:SELF PAY [facility] Number: Effective Repository Date:2018-08-04 03/09/2018 Pavithra Herrera Primary Pavithra Herrera [place] [id number] [place] Insurance:CARESOURCE BlairDOB: [facility] [id number] Hospital [address]Ndg: [phone]) Number: Repository [phone] () [id number] Date:7006-19-49BY [address] [place] [address]HS: 03/09/2018 Secondary NOT GIVENUNK [place] Insurance:SELF PAY [facility] Number: Effective Repository Date:2018-03-09 02/09/2018 Pavithra Herrera Primary Pavithra Herrera [place] [id number] [place] Insurance:CARESOURCE BlaAureliaB: [facility] [id number] Hospital [address]Nqr: [phone]) Number: Repository [phone] () [id number] Date:[id number] [address]BU: 02/09/2018 Secondary NOT GIVENUNK [place] Insurance:SELF PAY [facility] Number: Effective Repository Date:2018-02-09
== END 2018-09-30 10:04 | disposition home or self-care (01) ==
LOC: ED 09:58
PROVIDERS: Emergency Provider Emergency Medicine
DX: M65.4 Radial styloid tenosynovitis [de Quervain] (principal)
CPT/HCPCS: 73110; 99283

== ENCOUNTER 2018-12-15 12:53 | Emergency (ER) | payer SELFPAY ==
[2018-12-15 12:57] VITALS: BP 153/84; PULSE 99; RESP 16; TEMP 36.7; O2SAT 100; BMI 30.2
[2018-12-15 13:35] LABS: Absolute Lymphocyte Count 4.04 X10^3/ul (0.83-4.51); Absolute Neutrophil Count 6.8 X10^3/uL (2.0-7.7); Basophil# 0.05 X10^3/uL; Basophil% 0.4 % (0-1); Eosinophils% 4.1 % (0-5); Hematocrit 44.3 % (37-47); Hemoglobin 14.7 g/dl (12.0-15.0); Lymphocyte # 4.04 X10^3/ul (4.0); Lymphocyte % 33.4 % (19-41); Mean Corp Hgb Conc 33.2 g/gl (32-36); Mean Corpuscular Hgb 30.4 pg (27.0-32.0); Mean Corpuscular Volume 91.5 fL (81-99); Monocyte# 0.74 X10^3/uL; Monocyte% 6.1 % (0-10); Neutrophil # 6.75 X10^3/uL (2.7-7.7); Neutrophil % 55.8 % (47-70); Platelet Count 288 K/mm3 (150-450); RBC Distribution Width CV 13.3 % (11.6-14.6); RBC Distribution Width SD 44.2 fl (35.1-43.9); Red Blood Count 4.84 M/mm3 (4.2-5.4); White Blood Count 12.1 K/mm3 (4.4-11.0)
[2018-12-15 13:39] LABS: POSITIVE COUNT NO; POSITIVE DIFFERENTIAL NO; POSITIVE MORPHOLOGY NO
--- NOTE | 2018-12-15 13:46 | CT_ITS ---
STUDY: CT ABDOMEN AND PELVIS WITH CONTRAST REASON FOR EXAM: Female, 28 years old. Left lower quadrant pain. RADIATION DOSAGE (If Supplied By Facility): CTDIvol = ( 14.51 ) mGy, DLP = ( 1039.91 ) mGycm TECHNIQUE: Transaxial images were obtained from the dome of the diaphragm to the symphysis pubis without oral contrast. Isovue 300 100 IV was administered. Sagittal and coronal images were reconstructed. Individualized dose optimization techniques were used for this CT. COMPARISON: Comparison is made with prior study dated February 09, 2018. FINDINGS: The visualized lung bases are unremarkable. The visualized portions of the heart are within normal limits. Normal liver. Normal gallbladder and extrahepatic biliary system. Normal spleen. Normal pancreas. Normal bilateral adrenal glands. Normal right kidney. Normal left kidney. There is a small hiatal hernia. Normal small intestine. Moderate amount of the thecal material is seen in the colon. The appendix is visualized and appears normal. Normal abdominal aorta. Normal inferior vena cava. Normal retroperitoneum. Normal urinary bladder. Multiple follicles are seen in the left ovary. There is a 4 cm x 3.4 cm left ovarian cyst. Linear increased density is seen within it. There may be an element of blood within. An IUD device is seen within the uterus. Normal abdominal wall. Normal osseous structures. CT/Abdomen/Pelvis W IV Cont ONLY IMPRESSION: Findings suggestive of a 4 cm x 3.4 cm left hemorrhagic cyst. IUD is seen within the endometrium. Electronically Signed: Vance Laboy MD at 15:18 EST , Service support ,
--- NOTE | 2018-12-15 13:47 | ED.VISSUMM ---
- ER Visit Summary Date of Service: 12/15/18 Chief Complaint: Left lower quadrant abdominal pain History of Present Illness: The patient is a 28 F who presents for left lower quadrant abdominal pain since yesterday morning. Pain is radiating into the left groin and the left lower back. Pain is constant but waxes and wanes in intensity, with the increased pain described as pressure. Pain is worse if patient has a bowel movement. She has associated nausea today. Denies fever, vomiting, diarrhea, blood in her stool, hematuria, dysuria, frequency or urgency. She has a Mirena since August. She has a history of right ectopic resulting in right salpingectomy. Also history of ovarian cysts, endometriosis, diverticulitis and no history of kidney stones. Physical Examination: Vital signs: afebrile, hemodynamically stable, no hypoxia on room air General: well nourished, well developed, in no distress Skin: warm, dry, no rash, no pallor HEENT: normocephalic and atraumatic; PERRL, EOMI, moist mucous membranes Cardiovascular: regular rate and rhythm without murmurs, no peripheral edema, 2+ pulses all distal extremities Respiratory: No increased work of breathing, lungs are clear to auscultation bilaterally, no rales, rhonchi or wheezing Abdominal: Abdomen is soft, tender in the left lower quadrant with normoactive bowel sounds, no guarding or rebound, no masses, no CVA tenderness MSK: Moves all extremities, no deformities, normal strength Neuro: Awake and alert, oriented ?4. No facial droop, sensation and motor function intact and symmetric Test Results: Abnormal Lab Results 12/15/18 12/15/18 12/15/18 13:30 13:30 13:30 WBC 12.1 H RBC 4.84 Hgb 14.7 Hct 44.3 MCV 91.5 MCH 30.4 MCHC 33.2 RDW 13.3 RDW Differential 44.2 H Plt Count 288 MPV 10.0 Immature Gran % (Auto) 0.200 Neut % (Auto) 55.8 Lymph % (Auto) 33.4 [place] % (Auto) 6.1 Eos % (Auto) 4.1 Baso % (Auto) 0.4 Absolute Neuts (auto) 6.8 Absolute Lymphs (auto) 4.04 Total Counted Not Reportable Sodium 137 Potassium 4.5 Chloride 105 Carbon Dioxide 23.0 Anion Gap 9 BUN 12 Creatinine 0.62 Estim Creat Clear Calc 109.75 Est GFR (MDRD) Af Amer 145 Est GFR (MDRD) Non-Af 120 BUN/Creatinine Ratio 19.4 Glucose 77 Calcium 9.1 Serum , Qual NEGATIVE Urine Color Urine Clarity Urine pH Ur Specific [place] Urine Protein Urine Glucose (UA) Urine Ketones Urine Occult Blood Urine Nitrite Urine Bilirubin Urine Urobilinogen Ur Leukocyte Esterase Urine RBC Urine WBC Ur Squamous Epith Cells Urine Bacteria Urine Mucus 12/15/18 14:02 WBC RBC Hgb Hct MCV MCH MCHC RDW RDW Differential Plt Count MPV Immature Gran % (Auto) Neut % (Auto) Lymph % (Auto) [place] % (Auto) Eos % (Auto) Baso % (Auto) Absolute Neuts (auto) Absolute Lymphs (auto) Total Counted Sodium Potassium Chloride Carbon Dioxide Anion Gap BUN Creatinine Estim Creat Clear Calc Est GFR (MDRD) Af Amer Est GFR (MDRD) Non-Af BUN/Creatinine Ratio Glucose Calcium Serum , Qual Urine Color Yellow Urine Clarity Sl. Cloudy Urine pH 7.0 Ur Specific [place] 1.010 Urine Protein Negative Urine Glucose (UA) Normal Urine Ketones Negative Urine Occult Blood Negative Urine Nitrite Negative Urine Bilirubin Negative Urine Urobilinogen Normal Ur Leukocyte Esterase 25 H Urine RBC 0 SEEN Urine WBC 0-5 SEEN Ur Squamous Epith Cells 0-5 SEEN Urine Bacteria RARE Urine Mucus 0 SEEN Clinical Impression(s) from Imaging Studies Abdomen/Pelvis CT 12/15/18 13:46 IMPRESSION: Findings suggestive of a 4 cm x 3.4 cm left hemorrhagic cyst. IUD is seen within the endometrium. Electronically Signed: Vance Laboy MD at 15:18 EST , Service support , Transvaginal US 12/15/18 15:25 IMPRESSION: Left ovarian hemorrhagic cyst. There is no evidence of hemorrhagic blood products in the adnexa or cul-de-sac. There is a small amount of bilateral adnexal echolucent fluid and moderate echolucent cul-de-sac free fluid. There is no evidence of torsion. Electronically Signed: Los Son MD at 16:15 EST Tel , Service support , Medications Given Discontinued Medications Hydrocodone Bitart/Acetaminophen ([place] 5mg-325mg) 1 tablet PO X1 ONE Stop: 12/15/18 16:42 Sodium Chloride () 1,000 mls @ 1,000 mls/hr IV .Q1H ONE Stop: 12/15/18 14:45 Last Admin: 12/15/18 13:58 Dose: 1,000 mls/hr Morphine Sulfate () 4 mg IV X1 ONE Stop: 12/15/18 13:47 Last Admin: 12/15/18 13:58 Dose: 4 mg Ondansetron HCl (Zofran) 4 mg IV X1 ONE Stop: 12/15/18 13:47 Last Admin: 12/15/18 13:58 Dose: 4 mg Emergency Department Course and Treatment: Patient was given IV fluids, Zofran and morphine for symptomatic relief. Differential includes diverticulitis, colitis, ovarian cyst or torsion, ectopic , pyelonephritis, ureteral colic, among other possibilities. Labs performed, urine and check, CT abdomen and pelvis performed. Regnancy negative. Labs significant only for white count of 12.1. Urine negative for infection or hematuria. CT the abdomen and pelvis showed a left ovarian hemorrhagic cyst. To evaluate for any concern for torsion, a pelvic ultrasound was performed, and it showed no indication of ovarian torsion. Patient was feeling better on reevaluation and initially declined any further pain medication. Prior to discharge she did request further pain medication and was given one norco. Patient has naproxen at home that she will use for mild to moderate pain. She was given a small prescription of [place] for severe pain. We discussed return precautions and she is to follow-up with her end worker for reevaluation. Patient discharged home in improved condition. Treatment Plan: [] Disposition: [] Impression: Left ovarian hemorrhagic cyst This note was generated with [employer] dictation software. It may contain incorrect words, spelling, and punctuation that were not noted in review of the chart prior to signing ED Disposition - Plan for ED Patient: Disposition: Home or Assisted Living Instructions: ED Cyst Ovarian Prescriptions: Hydrocodone Bitart/Apap 5-325 [[place] 5MG-325MG] 1 tab PO Q6H PRN PRN 3 Days #10 tab PRN Reason: Pain Referrals: Care Physician,No Primary [Primary Care Provider] - Doctor,Your [STAFF PHYSICIAN] - 3-5 Days if not improving Additional Instructions: Please use naproxen at home for mild to moderate pain. You may use the [place] for severe pain. Follow-up with your end worker for another evaluation, especially if you are not having improvement within a few days. If you have any development of severely worsening pain, fever, dizziness or lightheadedness, uncontrolled vomiting, or any other concerning symptoms, return immediately to the emergency department for another evaluation.
[2018-12-15 13:57] LABS: Anion Gap 9 (5-15); BUN 12 mg/dL (7-18); BUN/Creat Ratio 19.4 RATIO (10-20); Calcium,Total 9.1 mg/dL (8.5-10.1); Chloride 105 mmol/L (98-107); Creatinine, Serum 0.62 mg/dL (0.55-1.02); EST Glomerular Filtration Rate 120 mL/min (>60); Est Glom Filt Rate - Afr Amer 145 mL/min (>60); Estimated Creatinine Clearance 109.75 ml/min; Glucose 77 mg/dL (74-106); Potassium 4.5 mmol/L (3.5-5.1); Sodium Level 137 mmol/L (136-145)
[2018-12-15 13:58] LABS: Pregnancy, Serum, hCG Quali. NEGATIVE Negative (0-9 Nonpreg)
[2018-12-15] MEDS: 0.9% Normal Saline 1,000 ML 1000 ML IV (13:58)
[2018-12-15] MEDS: Morphine 4 MG/ML Syringe IV (13:58)
[2018-12-15] MEDS: Ondansetron 4 MG/2 ML Vial IV (13:58)
[2018-12-15 14:10] LABS: Mucous, Urine 0 SEEN /hpf (<or=2+); Red Blood Cells-Urine 0 SEEN /hpf (0-5)
[2018-12-15 14:11] LABS: Color, Urine Yellow (Yellow); Glucose, Dipstick Normal (Normal); Ketone-Dipstick Negative (Negative); Leukocyte Esterase-Dipstick 25 /ul (Negative); Nitrite-Dipstick Negative (Negative); Occult Blood-Urine Negative /ul (Negative); Protein-Dipstick Negative (Negative); Urine Bilirubin Dipstick Negative (Negative); Urine Clarity Sl. Cloudy (Clear); Urine Urobilinogen Normal (Normal)
[2018-12-15 14:24] LABS: Squamous Epithelial Cells - UA 0-5 SEEN /hpf (5-10); White Blood Cells 0-5 SEEN /hpf (0-5)
[2018-12-15 14:25] LABS: Bacteria RARE /hpf (None Seen)
[2018-12-15 15:20] VITALS: PULSE 94; RESP 14; O2SAT 99
--- NOTE | 2018-12-15 15:25 | US_ITS ---
STUDY: ULTRASOUND OF THE FEMALE PELVIS - COMPLETE REASON FOR EXAM: Female, 28 years old. Left lower quadrant pain for one day, moderate. Abnormal CT scan. TECHNIQUE: Transvaginal (Transvaginal imaging, if present, was performed for enhanced visualization of uterus and endometrium, and posterior adnexal structures). COMPARISON: None. FINDINGS: Uterus is retroverted in the midline measuring 6.0 x 5.0 x 3.2 cm. Normal myometrial echotexture. Endometrium 4 mm, normal echotexture. Normal cervix. Well positioned IUD in the endometrial cavity. Right ovary 43 x 29 x 21 mm, normal echotexture, physiologic follicles, normal vascularity. There is no right adnexal mass, or suspicious cyst. Minimal right adnexal free fluid. Left ovary 57 x 39 x 29 mm. The left ovary contains small physiologic follicles in addition to a larger cyst measuring 33 x 34 x 21 mm. That cyst contains multiple internal fibrinous septations in a pattern consistent with a hemorrhagic cyst. Appropriate vascular flow without evidence of torsion. There appears to be minimal left adnexal free fluid. There is no left adnexal mass. Moderate echolucent cul-de-sac free fluid. US/Transvaginal Non- IMPRESSION: Left ovarian hemorrhagic cyst. There is no evidence of hemorrhagic blood products in the adnexa or cul-de-sac. There is a small amount of bilateral adnexal echolucent fluid and moderate echolucent cul-de-sac free fluid. There is no evidence of torsion. Electronically Signed: Los Son MD at 16:15 EST Tel , Service support ,
--- NOTE | 2018-12-15 15:58 | CON.PCM_ITS ---
Problem List (1) Unstable angina Status: Acute (2) Coronary artery disease Status: Acute (3) Severe obesity Status: Acute (4) Hypertension Status: Chronic (5) Hypercholesterolemia Status: Acute Reason for Consult History of Present Illness: The patient is a 28 year old F [] Past Medical History Allergies/Adverse Reactions: Allergies Sulfa (Sulfonamide Antibiotics) Allergy (Verified 12/15/18 12:59) Unknown Home Medications: Ambulatory Orders Medication Instructions Recorded NK 12/15/18 Past Medical History (Chronic Problems): Chronic Problems (Last Reviewed 08/24/18 @ 09:29 by Mariann Romero) Hypertension (Chronic) Smoking Status: Current every day smoker Objective: Vital Signs Temp Pulse Resp BP Pulse Ox 98.1 F 94 14 153/84 H 99 12/15/18 12:57 12/15/18 15:20 12/15/18 15:20 12/15/18 12:57 12/15/18 15:20 Oxygen Delivery Method Room Air Weight: 171 lb Body Mass Index (BMI) 30.2 12/15/18 13:30: WBC 12.1 H, RBC 4.84, Hgb 14.7, Hct 44.3, MCV 91.5, MCH 30.4, MCHC 33.2, RDW 13.3, RDW Differential 44.2 H, Plt Count 288, MPV 10.0, Immature Gran % (Auto) 0.200, Neut % (Auto) 55.8, Lymph % (Auto) 33.4, [place] % (Auto) 6.1, Eos % (Auto) 4.1, Baso % (Auto) 0.4, Absolute Neuts (auto) 6.8, Total Counted Not Reportable 12/15/18 13:30: Sodium 137, Potassium 4.5, Chloride 105, Carbon Dioxide 23.0, Anion Gap 9, BUN 12, Creatinine 0.62, Est GFR (MDRD) Af Amer 145, Est GFR (MDRD) Non-Af 120, BUN/Creatinine Ratio 19.4, Glucose 77, Calcium 9.1 12/15/18 14:02: Urine Color Yellow, Urine Clarity Sl. Cloudy, Urine pH 7.0, Ur Specific [place] 1.010, Urine Protein Negative, Urine Glucose (UA) Normal, Urine Ketones Negative, Urine Occult Blood Negative, Urine Nitrite Negative, Urine Bilirubin Negative, Urine Urobilinogen Normal, Ur Leukocyte Esterase 25 H, Urine RBC 0 SEEN, Urine WBC 0-5 SEEN Rhythm: EKG: ECHO: Stress Test: Cardiac Cath: PCI: CT Surgery: Holter monitor: EPS: PPM: CXR: Chest CT Scan:
--- NOTE | 2018-12-15 16:43 | DCINST.ED_ITS ---
ED Disposition - Plan for ED Patient: Disposition: Home or Assisted Living Instructions: ED Cyst Ovarian Prescriptions: Hydrocodone Bitart/Apap 5-325 [[place] 5MG-325MG] 1 tab PO Q6H PRN PRN 3 Days #10 tab PRN Reason: Pain Referrals: Care Physician,No Primary [Primary Care Provider] - Doctor,Your [STAFF PHYSICIAN] - 3-5 Days if not improving Additional Instructions: Please use naproxen at home for mild to moderate pain. You may use the [place] for severe pain. 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 If you have any development of severely worsening pain, fever, dizziness or lightheadedness, uncontrolled vomiting, or any other concerning symptoms, return immediately to the emergency department for another evaluation.
[2018-12-15 16:55] VITALS: BP 112/64; PULSE 61; RESP 13; O2SAT 98
[2018-12-15] MEDS: HYDROcodone Bitartrate/Apap 5/325 Tablet PO (16:57)
== END 2018-12-15 17:01 | disposition home or self-care (01) ==
PROVIDERS: Emergency Provider Emergency Medicine
DX: N83.202 Unspecified ovarian cyst, left side (principal); N80.9 Endometriosis, unspecified; Z87.59 Personal history of other complications of pregnancy, childbirth and the puerperium; Z87.19 Personal history of other diseases of the digestive system; Z97.5 Presence of (intrauterine) contraceptive device; Z90.721 Acquired absence of ovaries, unilateral
CPT/HCPCS: 74177; 76830; 80048; 81001; 84703; 85025; 93976; 96361; 96374; 96375; 99284; J7030; Q9967; A4216; J2405

== ENCOUNTER 2019-02-25 09:09 | Emergency (ER) | payer SELFPAY ==
[2019-02-25 09:10] VITALS: BP 150/76; PULSE 101; RESP 20; TEMP 37.3; O2SAT 100; BMI 31.1
--- NOTE | 2019-02-25 09:21 | RAD_ITS ---
STUDY: X-RAY - UNILATERAL RIBS ( LEFT ) WITH CHEST REASON FOR EXAM: Female, 28 years old. Posterior rib pain x1 week TECHNIQUE - RIBS: 2 view(s) of the ribs. TECHNIQUE - CHEST: Single PA view of the chest. COMPARISON: None. FINDINGS - RIBS: Normal visualized ribs without a demonstrated fracture. FINDINGS - CHEST: The lungs are clear and expanded. There is no demonstrated pleural abnormality. Normal size heart. Normal mediastinum and anthony. Normal visualized pulmonary arteries. Normal visualized aortic arch and descending thoracic aorta. Normal visualized thoracic spine. Normal visualized ribs, clavicles, and shoulders. There is no demonstrated abnormality of the visualized soft tissue structures of the upper abdomen. RAD/Ribs Uni Min 3V w/PA Chest IMPRESSION: RIBS: Normal x-ray examination of the ribs. CHEST: Normal x-ray examination of the chest. Electronically Signed: Theodore Stone MD at 9:56 EDT , Service support ,
--- NOTE | 2019-02-25 09:24 | ED.DCSUM_ITS ---
- ER Visit Summary Date of Service: 02/25/19 Chief Complaint: Back pain History of Present Illness: The patient is a 28 F who hit her left back on a wooden bocanegra at a restaurant 1 week ago. She states the next morning it was slightly sore, but pain is continued to worsen over the past 1 week. She been taking ibuprofen without improvement. Pain does not radiate to her arms or legs. Physical Examination: Vital signs grossly unremarkable. Patient sitting at bedside chair. She is in no acute distress. Head and neck examination is normal. Heart is regular rate and rhythm. Lung sounds are clear. Abdomen is soft nontender. Back examination reveals reproducible tenderness of the left posterior ribs. No midline tenderness. There is no CVA tenderness. Test Results: Chest x-ray with rib series is unremarkable. Emergency Department Course and Treatment: Patient was given naproxen and [place] here for pain. Test results discussed with the patient. She will be treated with naproxen, [place], Flexeril. She will be referred to Dr. Ngo who she has seen in the past. Treatment Plan: [] Disposition: Discharge Impression: Thoracic contusion with muscle spasm This note was generated with [employer] dictation software. It may contain incorrect words, spelling, and punctuation that were not noted in review of the chart prior to signing ED Disposition - Plan for ED Patient: Disposition: Home or Assisted Living Instructions: ED Contusion Back, ED Spasm Muscle Prescriptions: Hydrocodone Bitart/Apap 5-325 [[place] 5MG-325MG] 1 tablet PO Q6H PRN PRN 3 Days #10 tablet PRN Reason: Pain RX: Naproxen [Naprosyn] 500 mg PO BID PRN PRN #20 tablet PRN Reason: Pain Cyclobenzaprine [Flexeril] 10 mg PO TID PRN #20 tablet PRN Reason: Muscle Spasm Referrals: José Miguel Ngo MD [NON-STAFF] - 1-2 Weeks
[2019-02-25] MEDS: HYDROcodone Bitartrate/Apap 5/325 Tablet PO (09:27)
[2019-02-25] MEDS: Naproxen 500 MG Tablet PO (09:28)
[2019-02-25 10:37] VITALS: BP 109/74; PULSE 89; RESP 16; O2SAT 97
--- NOTE | 2019-02-25 10:40 | ED.RN ---
DISCHARGE INSTRUCTIONS GIVEN TO AND REVIEWED WITH PATIENT, PATIENT DENIES QUESTIONS OR CONCERNS AND VOICES UNDERSTANDING OF DISCHARGE INSTRUCTIONS. PT AMBULATES OUT OF ROOM WITHOUT DIFFICULTY.
== END 2019-02-25 10:41 | disposition home or self-care (01) ==
PROVIDERS: Emergency Provider Emergency Medicine
DX: S20.229A Contusion of unspecified back wall of thorax, initial encounter (principal); W22.03XA Walked into furniture, initial encounter; Y93.9 Activity, unspecified; Y92.511 Restaurant or cafe as the place of occurrence of the external cause; Y99.9 Unspecified external cause status; I25.10 Atherosclerotic heart disease of native coronary artery without angina pectoris; I10 Essential (primary) hypertension; E78.00 Pure hypercholesterolemia, unspecified; Z72.0 Tobacco use; M62.830 Muscle spasm of back
CPT/HCPCS: 71101; 99283

== ENCOUNTER 2019-05-23 19:30 | Emergency (ER) | payer SELFPAY ==
[2019-05-23 19:31] VITALS: BP 136/110; PULSE 113; RESP 15; TEMP 36.7; O2SAT 97; BMI 30.1
[2019-05-23 20:04] LABS: Bacteria 0 SEEN /hpf (None Seen); Mucous, Urine 0 SEEN /hpf (<or=2+); Red Blood Cells-Urine 0 SEEN /hpf (0-5); Squamous Epithelial Cells - UA 0 SEEN /hpf (5-10); White Blood Cells 0 SEEN /hpf (0-5)
[2019-05-23 20:06] LABS: Color, Urine Yellow (Yellow); Glucose, Dipstick Normal (Normal); Ketone-Dipstick Negative (Negative); Leukocyte Esterase-Dipstick Negative /ul (Negative); Nitrite-Dipstick Negative (Negative); Occult Blood-Urine Negative /ul (Negative); Protein-Dipstick Negative (Negative); Specific Gravity, Urine 1.005 (1.002-1.030); Urine Bilirubin Dipstick Negative (Negative); Urine Clarity Clear (Clear); Urine Urobilinogen Normal (Normal)
[2019-05-23 20:28] LABS: Absolute Lymphocyte Count 2.89 X10^3/uL (0.83-4.51); Absolute Neutrophil Count 6.8 X10^3/uL (2.0-7.7); Basophil# 0.07 X10^3/uL; Basophil% 0.6 % (0-1); Eosinophil# 0.53 X10^3/uL; Eosinophils% 4.8 % (0-5); Hematocrit 38.7 % (37-47); Hemoglobin 13.3 g/dL (12.0-15.0); Lymphocyte # 2.89 X10^3/ul (4.0); Lymphocyte % 26.1 % (19-41); Mean Corp Hgb Conc 34.4 g/dL (32-36); Mean Corpuscular Hgb 31.1 pg (27.0-32.0); Mean Corpuscular Volume 90.4 fL (81-99); Mean Platelet Vol. 9.9 fl (6.2-12.0); Monocyte# 0.79 X10^3/uL; Monocyte% 7.1 % (0-10); NRBC Flagged by Analyzer 0 % (0-5); Neutrophil # 6.75 X10^3/uL (2.7-7.7); Platelet Count 277 K/mm3 (150-450); RBC Distribution Width SD 42.8 fl (35.1-43.9); Red Blood Count 4.28 M/mm3 (4.2-5.4); White Blood Count 11.1 K/mm3 (4.4-11.0)
--- NOTE | 2019-05-23 20:34 | CT_ITS ---
STUDY: CT ABDOMEN AND PELVIS WITHOUT CONTRAST REASON FOR EXAM: Female, 28 years old. Right inguinal pain RADIATION DOSAGE (If Supplied By Facility): CTDIvol = ( 11.61 ) mGy, DLP = ( 545.06 ) mGycm TECHNIQUE: Transaxial images were obtained from the dome of the diaphragm to the symphysis pubis without oral contrast, and without intravenous contrast. Sagittal and coronal images were reconstructed. Individualized dose optimization techniques were used for this CT. COMPARISON: 12/15/2018 FINDINGS: Evaluation of the abdominal viscera is limited in the absence of intravenous contrast. The visualized lung bases are clear. The visualized portions of the heart and pericardium are within normal limits. There are no calcified gallstones present. The liver demonstrates an unremarkable unenhanced appearance. The spleen is normal in size. The pancreas demonstrates an unremarkable unenhanced appearance. The adrenal glands are within normal limits. There are no renal or ureteral stones. There is no hydronephrosis. Normal visualized stomach. There is no bowel obstruction or inflammation. The appendix is visualized and appears normal. The aorta is normal in caliber. There is no abdominal or pelvic free air, free fluid, fluid collection or lymphadenopathy. There is no inguinal lymphadenopathy. There is an intrauterine device noted. There are bilateral adnexal cysts. There are no destructive osseous lesions. CT/Abdomen/Pelvis without Cont IMPRESSION: Bilateral adnexal cysts which are likely physiologic. No bowel obstruction or inflammation. Normal appendix. No urinary calculi. No hydronephrosis. Electronically Signed: Power Way, at 21:41 EDT Tel , Service support ,
[2019-05-23 20:44] LABS: Internal QC Validated? YES +Cl - CLEAR BKGD; Pregnancy, Serum, hCG Quali. NEGATIVE Negative
[2019-05-23 20:45] LABS: Anion Gap 6 (5-15); BUN 9 mg/dL (7-18); BUN/Creat Ratio 12.3 RATIO (10-20); Calcium,Total 8.6 mg/dL (8.5-10.1); Chloride 107 mmol/L (98-107); Creatinine, Serum 0.73 mg/dL (0.55-1.02); EST Glomerular Filtration Rate 98 mL/min (>60); Est Glom Filt Rate - Afr Amer 119 mL/min (>60); Estimated Creatinine Clearance 93.22 ml/min; Glucose 126 mg/dL (74-106); Potassium 4.1 mmol/L (3.5-5.1); Sodium Level 137 mmol/L (136-145)
[2019-05-23] MEDS: Morphine 4 MG/ML Syringe IV (21:03)
[2019-05-23] MEDS: Ondansetron 4 MG/2 ML Vial IV (21:03)
[2019-05-23 22:40] VITALS: BP 108/74; PULSE 77; RESP 16; O2SAT 98
--- NOTE | 2019-05-23 22:48 | ED.VISSUMM ---
- ER Visit Summary Date of Service: 05/23/19 Chief Complaint: Right inguinal pain History of Present Illness: The patient is a 28 F with right inguinal pain that started this evening. It feels like sharp and burning. She had ovarian cyst in the past which cause sharp pain, but no burning. Patient reports a history of endometriosis, right ectopic surgery with salpingectomy remotely and laparoscopic surgery for ovarian cyst. No fevers or other associated symptoms. Physical Examination: Afebrile and vital signs unremarkable except for heart rate of 113. Abdomen is tender in the right inguinal region. No guarding or rebound. No other tenderness. Skin appears normal. Test Results: White count 11.1. Chemistry panel unremarkable. Urinalysis negative. hCG negative. CT abdomen showed bilateral adnexal cysts which are likely physiologic, and her scan was otherwise normal. Emergency Department Course and Treatment: Patient was treated with morphine and Zofran while awaiting results. Her work-up as above was all fairly unremarkable. She has bilateral adnexal cysts, and I believe this is causing her pain. Patient will be treated with anti-inflammatories and nausea medicine. Follow-up with [employer]. Return for any new or worsening issues. Treatment Plan: As above Disposition: Discharge Impression: 1. Bilateral ovarian cysts This note was generated with [employer] dictation software. It may contain incorrect words, spelling, and punctuation that were not noted in review of the chart prior to signing ED Disposition - Plan for ED Patient: Referrals: Care Physician,No Primary [Primary Care Provider] -
--- NOTE | 2019-05-23 22:51 | ED.DEP ---
ED Disposition - Plan for ED Patient: Instructions: Ovarian Cyst Prescriptions: Naproxen [Naprosyn] 500 mg PO BID PRN #20 tab Prescription Printed Ondansetron [Zofran Odt] 4 mg PO Q8H PRN PRN #10 tab PRN Reason: Nausea Prescription Printed Additional Instructions: follow up with your obgyn
[2019-05-23 23:03] VITALS: RESP 18
== END 2019-05-23 23:05 | disposition home or self-care (01) ==
LOC: ED 20:49
PROVIDERS: Emergency Provider Emergency Medicine
DX: N83.201 Unspecified ovarian cyst, right side (principal); N83.202 Unspecified ovarian cyst, left side; Z72.0 Tobacco use
CPT/HCPCS: 74176; 80048; 81001; 84703; 85025; 96374; 96375; 99284; A4216; J2405

== ENCOUNTER → 2019-08-09 08:29 | Outpatient (CLI) | payer OTHER, SELFPAY ==
[2019-07-28 11:35] VITALS: BMI 30.1
--- NOTE | 2019-08-09 08:31 | US_ITS ---
STUDY: ULTRASOUND OF THE FEMALE PELVIS - COMPLETE CLINICAL: Female, 29 years old. Pelvic pain x 2 months. History of ovarian cyst and endometriosis. Patient has IUD and is amenorrheic. TECHNIQUE: Transabdominal and Transvaginal TECHNICAL QUALITY: Adequate. COMPARISON: CT abdomen and pelvis without contrast May 23, 2019 FINDINGS: The uterus is retroverted and is in a midline position. The uterus measures 6.7 x 5.8 x 3.0 cm. Normal uterine cervix. The endometrium measures 7 mm in thickness, and is hyperechoic. There is no demonstrated endometrial mass. There is no demonstrated myometrial mass. I.U.D. - The patient does have an I.U.D. in the upper endometrial cavity. The right ovary is visualized. The right ovary measures 4.2 x 4.0 x 1.9 cm. There are a few subcentimeter follicles of the right ovary without a dominant cyst. There is no visualized right adnexal mass or complex lesion. There is normal arterial and normal venous vascularity. The left ovary is visualized. The left ovary measures 4.3 x 3.8 x 2.8 cm. There are a few subcentimeter follicles of the left ovary without a dominant cyst. Also seen is a 3.0 x 1.7 x 1.5 cm heterogeneously hypoechoic area in the left ovary. There is normal arterial and normal venous vascularity. There is small volume fluid in the cul-de-sac. Polycystic ovary disease: No. US/Transvaginal Non- IMPRESSION: 1. IUD in the upper endometrial cavity of the normal size, retroverted uterus. 2. Unremarkable right ovary. 3. 3 cm hypoechoic structure in the left ovary, possibly an involuting dominant follicle. Other pathology not excluded, and one might consider follow-up after the next 1-2 menstrual cycles to document stability or resolution. 4. Small volume free fluid in the cul-de-sac. Electronically Signed: Theodore Gomez MD at 19:13 EDT , Service support ,
--- NOTE | 2019-08-09 08:31 | US_ITS ---
STUDY: ULTRASOUND OF THE FEMALE PELVIS - COMPLETE CLINICAL: Female, 29 years old. Pelvic pain x 2 months. History of ovarian cyst and endometriosis. Patient has IUD and is amenorrheic. TECHNIQUE: Transabdominal and Transvaginal TECHNICAL QUALITY: Adequate. COMPARISON: CT abdomen and pelvis without contrast May 23, 2019 FINDINGS: The uterus is retroverted and is in a midline position. The uterus measures 6.7 x 5.8 x 3.0 cm. Normal uterine cervix. The endometrium measures 7 mm in thickness, and is hyperechoic. There is no demonstrated endometrial mass. There is no demonstrated myometrial mass. I.U.D. - The patient does have an I.U.D. in the upper endometrial cavity. The right ovary is visualized. The right ovary measures 4.2 x 4.0 x 1.9 cm. There are a few subcentimeter follicles of the right ovary without a dominant cyst. There is no visualized right adnexal mass or complex lesion. There is normal arterial and normal venous vascularity. The left ovary is visualized. The left ovary measures 4.3 x 3.8 x 2.8 cm. There are a few subcentimeter follicles of the left ovary without a dominant cyst. Also seen is a 3.0 x 1.7 x 1.5 cm heterogeneously hypoechoic area in the left ovary. There is normal arterial and normal venous vascularity. There is small volume fluid in the cul-de-sac. Polycystic ovary disease: No. US/Pelvic (Non ) IMPRESSION: 1. IUD in the upper endometrial cavity of the normal size, retroverted uterus. 2. Unremarkable right ovary. 3. 3 cm hypoechoic structure in the left ovary, possibly an involuting dominant follicle. Other pathology not excluded, and one might consider follow-up after the next 1-2 menstrual cycles to document stability or resolution. 4. Small volume free fluid in the cul-de-sac. Electronically Signed: Theodore Gomez MD at 19:13 EDT , Service support ,
== END ==
PROVIDERS: Referring Provider Nurse Practitioner Women's Health; Visit Provider Nurse Practitioner Women's Health
DX: N80.9 Endometriosis, unspecified (principal); E28.2 Polycystic ovarian syndrome; R10.2 Pelvic and perineal pain
CPT/HCPCS: 76830; 76856; 93976

== ENCOUNTER → 2019-09-09 14:48 | Outpatient (CLI) | payer OTHER, SELFPAY ==
[2019-09-05 08:36] VITALS: BMI 30.1
--- NOTE | 2019-09-09 14:50 | US_ITS ---
STUDY: ULTRASOUND OF THE FEMALE PELVIS - COMPLETE REASON FOR EXAM: Female, 29 years old. Pelvic pain. LMP: Patient has IUD and is amenorrheic. TECHNIQUE: Transabdominal and Transvaginal TECHNICAL QUALITY: Adequate. COMPARISON: None. FINDINGS: The uterus is retroflexed and is in a midline position. The uterus measures 7.6 cm x 4.7 cm x 3.9 cm. Normal uterine cervix. The endometrium measures 5.0 mm in thickness, and is hyperechoic. There is no demonstrated endometrial mass. There is no demonstrated myometrial mass. I.U.D. - The patient does have an I.U.D. The right ovary is visualized. The right ovary measures 4.4 cm x 3.1 cm x 2.6 cm. There is no right ovarian cyst or ovarian mass. There is no visualized right adnexal mass or complex lesion. There is normal arterial and normal venous vascularity. The left ovary is visualized. The left ovary measures 4.2 cm x 4.0 cm x 2.2 cm. A dominant follicle is seen within the ovary measuring 1.6 x 1.27 x 1.5 cm. There is no visualized left adnexal mass or complex lesion. There is normal arterial and normal venous vascularity. There is no fluid in the cul-de-sac. The pre void volume of the bladder was ml. The post void volume of the bladder was ml. Polycystic ovary disease: No. US/Transvaginal Non- IMPRESSION: Dominant follicle in the left ovary. Electronically Signed: Vance Laboy, at 15:47 EST , Service support ,
== END ==
LOC: OPUS 14:49
PROVIDERS: Referring Provider Obstetrics & Gynecology; Visit Provider Obstetrics & Gynecology
DX: E28.2 Polycystic ovarian syndrome (principal); N80.9 Endometriosis, unspecified; R10.2 Pelvic and perineal pain
CPT/HCPCS: 76830

== ENCOUNTER 2019-10-14 17:20 | Emergency (ER) | payer OTHER, SELFPAY ==
[2019-09-05 08:36] VITALS: BMI 30.1
[2019-10-14 17:21] VITALS: BP 134/87; PULSE 103; RESP 16; TEMP 36.8; O2SAT 99; BMI 32.2
--- NOTE | 2019-10-14 17:35 | CT_ITS ---
STUDY: CT ABDOMEN AND PELVIS WITH CONTRAST REASON FOR EXAM: Female, 29 years old. Right lower quadrant pain with rebound tenderness. History of right ovarian cyst and removal of right fallopian tube. RADIATION DOSAGE (If Supplied By Facility): CTDIvol = ( 16.96 ) mGy, DLP = ( 1001.04 ) mGycm TECHNIQUE: Transaxial images were obtained from the dome of the diaphragm to the symphysis pubis with oral contrast. 100 ml isovue 300 and Gastrografin 450ml was administered. Sagittal and coronal images were reconstructed. Individualized dose optimization techniques were used for this CT. COMPARISON: Prior abdomen and pelvic CT exam of May 23, 2019 FINDINGS: Mild dependent right basilar atelectasis. The visualized portions of the heart are within normal limits. Normal liver. Normal gallbladder and extrahepatic biliary system. Normal spleen. 1 splenule. Normal pancreas. Normal bilateral adrenal glands. Normal right kidney. Normal left kidney. Nondistended partly food filled stomach. Normal small intestine. Normal colon. The appendix is visualized and appears normal. Normal abdominal aorta. Normal inferior vena cava. Normal retroperitoneum. Normal urinary bladder. There is a mild free fluid in the pelvis with a ring-enhancing lesion of the right ovary measuring 1.8 x 2.7 x 1.5 cm. The ring is incomplete. Unremarkable left ovary. Normal uterus with a Mirena IUD in the endometrial space. Normal abdominal wall. Normal osseous structures. CT/Abdomen/Pelvis WITH Contrast IMPRESSION: Collapsing large, 1.8 x 2.7 x 1.5 cm, dominant follicle or right ovarian cyst with mild free fluid of the pelvis. The fluid appears to be mildly hemorrhagic. Unremarkable left ovary. Normal uterus with a Mirena IUD in the endometrial space. No additional acute abdominal or pelvic findings. A normal appendix is identified. Electronically Signed: Elba Guy MD at 19:55 EST , Service support ,
--- NOTE | 2019-10-14 17:36 | ED.VIS.GEN ---
History of Present Illness Chief Complaint: Abd Pain Informant: Patient Onset: Today Context: Sudden Onset Timing: Continuous Quality: Pain Location: Proximity McBurney's point Current Severity: Mild Maximum Severity: Severe Worsened by: Walking, movement and car ride Relieved by: Nothing Associated Symptoms: Nausea and decreased appetite Narrative: Patient is a 29-year-old female who presents with abrupt onset of abdominal pain. She thought she had to use the restroom. She did use the restroom with no improvement. The pain is localized to the right lower quadrant proximity McBurney's point. She does report nausea with decreased appetite. She states the pain is gotten worse. The pain does not radiate. There is no history of renal ureterolithiasis. There is a history of ovarian cyst. She is status post right salpingectomy secondary to ectopic . She is scheduled for a hysterectomy in December 2019 due to endometriosis. She denies intolerance to greasy or fried foods. She denies history of trauma. She denies rash or skin lesions. Prior similar symptoms: No Recent Illness/Hospitalization: No - Past Medical History (1) Coronary artery disease Status: Acute (2) Endometriosis Status: Acute Comment: mirena iud failed, discussed medical versus minor and major surgical options, plan on LAVH BS cysto (3) Family history of von Willebrand disease Status: Acute Comment: screen for, plan no lovenox preop discussed with patient due to family history hemorrhage (4) Hypercholesterolemia Status: Acute (5) PCOS (polycystic ovarian syndrome) Status: Acute Comment: on mirena- signficant spotting daily. (6) Hypertension Status: Chronic Past Medical History - Allergies and Home Meds Allergies/Adverse Reactions: Allergies Sulfa (Sulfonamide Antibiotics) Allergy (Verified 10/14/19 17:24) Unknown Primary Care Physician: Care Physician,No Primary [Primary Care Provider] - Prior records reviewed: Yes Lives: Spouse/ Significant Other, With Family Smoking Status: Current every day smoker Alcohol: Rare Drugs: None Review of Systems General: Denies: Chills, Fever, Sweats Eyes: Denies: Visual changes - bilaterally, Diplopia ENT: Denies: Bilateral ear pain, Rhinorrhea, Sore throat Cardiovascular: Denies: Chest pain, Palpitations Respiratory: Denies: Dyspnea, Cough, Dyspnea on exertion Gastrointestinal: Reports: Abdominal pain, Nausea. Denies: Vomiting, Diarrhea, Constipation, Melena, Hematochezia, -, - Genitourinary: Denies: Dysuria, Hematuria, Frequency Musculoskeletal: Denies: Myalgias, Arthralgias, Neck pain, Back pain, Swelling, Extremity Pain, -, - Skin: Denies: Rash, Wounds Neurological: Denies: Headache, Weakness, Numbness Hematologic: Denies: Easy bruising, Easy bleeding Allergy: Denies: Uticaria Physical Exam Vital Signs/Narrative: Vital Signs Temp Pulse Resp BP Pulse Ox 10/14/19 17:21 98.3 F 103 H 16 134/87 H 99 Inital Vital Signs reviewed: Yes General: Well nourished, Well developed, - - Patient appears uncomfortable. Head: Normocephalic, Atraumatic Eyes: Perrl, EOMI. Negative for: Pale conjunctiva, Scleral icterus ENT: Moist mucous membranes, No rhinorrhea, TM's clear Neck: Supple, Nontender, No lymphadenopathy, No JVD Cardiovascular: Regular rate, Regular rhythm, No murmurs, Normal S1, Normal S2 Respiratory: No distress, CTA bilaterally, Chest nontender Abdomen: Soft, Nondistended, No masses, Tender, Guarding, Rebound tenderness. Negative for: Nontender, Normal bowel sounds Back: Nontender, Normal Inspection Extremities: Nontender, No edema Skin: Normal color, No rash, No Trauma. Negative for: Cyanosis, Diaphoresis, Jaundice Neurological: Alert, Oriented x3, Cranial nerves II-XII grossly intact, Normal Strength, Normal Sensation Psychological: Normal affect, Normal Mood Diagnostic/Tx/Re-eval Impressions Abdomen/Pelvis CT 10/14/19 17:35 IMPRESSION: Collapsing large, 1.8 x 2.7 x 1.5 cm, dominant follicle or right ovarian cyst with mild free fluid of the pelvis. The fluid appears to be mildly hemorrhagic. Unremarkable left ovary. Normal uterus with a Mirena IUD in the endometrial space. No additional acute abdominal or pelvic findings. A normal appendix is identified. Electronically Signed: Elba Guy MD at 19:55 EST , Service support , 10/14/19 17:35 Abdomen/Pelvis WITH Contrast [CT] Stat Laboratory Results 1210/14/19 10/14/19 18:03 18:03 18:03 WBC 13.9 H RBC 4.90 Hgb 14.9 Hct 45.3 MCV 92.4 MCH 30.4 MCHC 32.9 RDW Std Deviation 45.5 H RDW Coeff of Benji 13.9 Plt Count 287 MPV 10.3 Immature Gran % (Auto) 0.400 Neut % (Auto) 58.5 Lymph % (Auto) 29.6 [place] % (Auto) 6.8 Eos % (Auto) 4.0 Baso % (Auto) 0.7 Absolute Neuts (auto) 8.1 H Absolute Lymphs (auto) 4.12 Nucleated RBC % 0 Sodium 138 Potassium 4.5 Chloride 108 H Carbon Dioxide 23.0 Anion Gap 7 BUN 13 Creatinine 0.70 Estim Creat Clear Calc 92.10 Est GFR (MDRD) Af Amer 125 Est GFR (MDRD) Non-Af 103 BUN/Creatinine Ratio 18.5 Glucose 88 Calcium 9.5 Serum , Qual NEGATIVE Urine Color Urine Clarity Urine pH Ur Specific [place] Urine Protein Urine Glucose (UA) Urine Ketones Urine Occult Blood Urine Nitrite Urine Bilirubin Urine Urobilinogen Ur Leukocyte Esterase Urine RBC Urine WBC Ur Squamous Epith Cells Urine Bacteria Urine Mucus 10/14/19 18:10 WBC RBC Hgb Hct MCV MCH MCHC RDW Std Deviation RDW Coeff of Benji Plt Count MPV Immature Gran % (Auto) Neut % (Auto) Lymph % (Auto) [place] % (Auto) Eos % (Auto) Baso % (Auto) Absolute Neuts (auto) Absolute Lymphs (auto) Nucleated RBC % Sodium Potassium Chloride Carbon Dioxide Anion Gap BUN Creatinine Estim Creat Clear Calc Est GFR (MDRD) Af Amer Est GFR (MDRD) Non-Af BUN/Creatinine Ratio Glucose Calcium Serum , Qual Urine Color Yellow Urine Clarity Sl. Cloudy Urine pH 6.0 Ur Specific [place] 1.020 Urine Protein Negative Urine Glucose (UA) Normal Urine Ketones Negative Urine Occult Blood Negative Urine Nitrite Negative Urine Bilirubin Negative Urine Urobilinogen Normal Ur Leukocyte Esterase Negative Urine RBC 0 SEEN Urine WBC 0 SEEN Ur Squamous Epith Cells 0-5 SEEN Urine Bacteria 0 SEEN Urine Mucus 2+ CT of the abdomen pelvis reveals a hemorrhagic right ovarian cyst that ruptured. UA is unremarkable. White count is elevated and is a nonspecific marker. Of note the appendix was seen and is normal and there is no inflammatory changes. Based on this finding patient's right lower quadrant pain secondary to hemorrhagic ruptured cyst. - Medical Decision Making With abrupt onset of right-sided pain need to entertain possibility of ureterolithiasis versus atypical appendicitis. Work-up included blood work and CT. Since the appendix was visualized normal will discharge to home with appropriate home-going instruction for ruptured ovarian cyst ED Disposition - Plan for ED Patient: Disposition: Home or Assisted Living Diagnosis: Ruptured hemorrhagic ovarian cyst Instructions: Ovarian Cyst Referrals: Care Physician,No Primary [Primary Care Provider] - Yanira Shelley MD [STAFF PHYSICIAN] - Keep Chloe appointment
[2019-10-14] MEDS: 0.9% Normal Saline 1,000 ML 1000 ML IV (18:03)
[2019-10-14 18:16] LABS: Bacteria 0 SEEN /hpf (None Seen); Red Blood Cells-Urine 0 SEEN /hpf (0-5); White Blood Cells 0 SEEN /hpf (0-5)
[2019-10-14 18:17] LABS: Absolute Lymphocyte Count 4.12 X10^3/uL (0.83-4.51); Absolute Neutrophil Count 8.1 X10^3/uL (2.0-7.7); Basophil% 0.7 % (0-1); Eosinophil# 0.56 X10^3/uL; Hematocrit 45.3 % (37-47); Hemoglobin 14.9 g/dL (12.0-15.0); Lymphocyte # 4.12 X10^3/ul (4.0); Lymphocyte % 29.6 % (19-41); Mean Corp Hgb Conc 32.9 g/dL (32-36); Mean Corpuscular Hgb 30.4 pg (27.0-32.0); Mean Corpuscular Volume 92.4 fL (81-99); Mean Platelet Vol. 10.3 fl (6.2-12.0); Monocyte# 0.95 X10^3/uL; Monocyte% 6.8 % (0-10); NRBC Flagged by Analyzer 0 % (0-5); Neutrophil # 8.14 X10^3/uL (2.7-7.7); Neutrophil % 58.5 % (47-70); Platelet Count 287 K/mm3 (150-450); RBC Distribution Width CV 13.9 % (11.6-14.6); RBC Distribution Width SD 45.5 fl (35.1-43.9); White Blood Count 13.9 K/mm3 (4.4-11.0)
[2019-10-14 18:21] LABS: Color, Urine Yellow (Yellow); Glucose, Dipstick Normal (Normal); Ketone-Dipstick Negative (Negative); Leukocyte Esterase-Dipstick Negative /ul (Negative); Nitrite-Dipstick Negative (Negative); Occult Blood-Urine Negative /ul (Negative); Protein-Dipstick Negative (Negative); Urine Bilirubin Dipstick Negative (Negative); Urine Clarity Sl. Cloudy (Clear); Urine Urobilinogen Normal (Normal)
[2019-10-14 18:35] LABS: Mucous, Urine 2+ /hpf (<or=2+); Squamous Epithelial Cells - UA 0-5 SEEN /hpf (5-10)
[2019-10-14 18:51] LABS: Internal QC Validated? YES +Cl - CLEAR BKGD; Pregnancy, Serum, hCG Quali. NEGATIVE Negative
[2019-10-14 18:57] LABS: Anion Gap 7 (5-15); BUN 13 mg/dL (7-18); BUN/Creat Ratio 18.5 RATIO (10-20); Calcium,Total 9.5 mg/dL (8.5-10.1); Chloride 108 mmol/L (98-107); EST Glomerular Filtration Rate 103 mL/min (>60); Est Glom Filt Rate - Afr Amer 125 mL/min (>60); Glucose 88 mg/dL (74-106); Potassium 4.5 mmol/L (3.5-5.1); Sodium Level 138 mmol/L (136-145)
[2019-10-14 19:44] VITALS: BP 136/85; PULSE 71; RESP 15; O2SAT 97
[2019-10-14 20:18] VITALS: BP 136/85; PULSE 71; RESP 15; O2SAT 97
== END 2019-10-14 20:19 | disposition home or self-care (01) ==
PROVIDERS: Emergency Provider Emergency Medicine
DX: N83.201 Unspecified ovarian cyst, right side (principal); I25.10 Atherosclerotic heart disease of native coronary artery without angina pectoris; I10 Essential (primary) hypertension; E78.00 Pure hypercholesterolemia, unspecified; F17.200 Nicotine dependence, unspecified, uncomplicated
CPT/HCPCS: 74177; 80048; 81001; 84703; 85025; 96360; 96361; 99284; J7030; Q9967; A4216

== ENCOUNTER 2019-12-06 05:30 | Day surgery (SDC) | payer OTHER, SELFPAY ==
[2019-09-05 08:36] VITALS: BMI 30.1
[2019-11-28 14:28] VITALS: BMI 32.2
[2019-11-30 10:22] LABS: Hematocrit 41.8 % (37-47); Hemoglobin 13.9 g/dL (12.0-15.0); Mean Corp Hgb Conc 33.3 g/dL (32-36); Mean Corpuscular Hgb 29.8 pg (27.0-32.0); Mean Corpuscular Volume 89.7 fL (81-99); Mean Platelet Vol. 10.3 fl (6.2-12.0); Platelet Count 344 K/mm3 (150-450); RBC Distribution Width SD 42.8 fl (35.1-43.9); Red Blood Count 4.66 M/mm3 (4.2-5.4); White Blood Count 10.7 K/mm3 (4.4-11.0)
[2019-11-30 10:45] LABS: Prothrombin Time (Protime)PT. 12.8 SECONDS (11.7-14.9)
[2019-11-30 10:46] LABS: Partial Thromboplast Time 29.7 Seconds (24.1-36.2)
[2019-12-06] VITALS (13 sets, daily range): BP systolic 95–138; BP diastolic 51–88; PULSE 66–88; RESP 16–18; TEMP 36.3–37.1; O2SAT 96–100; BMI 31.4
[2019-12-06 06:01] LABS: Bedside Glucose 81 mg/dL (70-110)
[2019-12-06 06:04] LABS: Internal QC Validated? YES +Cl - CLEAR BKGD; Pregnancy, Urine Negative Negative
--- NOTE | 2019-12-06 06:14 | PCM.HPOB.BLA ---
- Problem List (1) Endometriosis Status: Acute Comment: mirena iud failed, discussed medical versus minor and major surgical options, plan on LAVH BS cysto (2) Family history of von Willebrand disease Status: Acute Comment: screen for, plan no lovenox preop discussed with patient due to family history hemorrhage (3) PCOS (polycystic ovarian syndrome) Status: Acute Comment: on mirena- signficant spotting daily. History and Physical Date of Admission: 12/06/19 Intake Vital Signs 11/28/19 BMI 32.2 11/28/19 Height 5 ft 2 in 11/28/19 Weight: 172 lb 2 oz 11/28/19 BMI 31.4 11/28/19 BP 125/79 H Intake Visit Reasons: ERAS pre op Bell Spinner Required: No Is patient in pain?: No Allergies Sulfa (Sulfonamide Antibiotics) Allergy (Verified 11/28/19 14:28) Unknown Medications levonorgestrel 20 mcg/24 hours (5 yrs) 52 mg intrauterine device 1 device INTRAUTERINE ONCE 07/28/19 [History Confirmed 11/28/19] naproxen 500 mg tablet 500 mg PO BID PRN #30 tab 09/28/19 [Rx Confirmed 11/28/19] promethazine 12.5 mg tablet 12.5 mg PO TID #60 tab 09/28/19 [Rx Confirmed 11/28/19] Post menopausal: No Patient : No : No PFSH Medical History Ectopic (Acute) History of PCOS (Acute) History of ovarian cyst (Acute) Severe headache (Acute) Chronic neck and back pain (Chronic) Surgical History History of laparoscopy (Acute) [place] teeth extracted (Acute) Family History Grandfather Diabetes Heart disease Social History (Updated 11/28/19 @ 14:54 by Yanira Shelley MD) Smoking Status: Current every day smoker alcohol intake: current details: social substance use type: does not use caffeine: Yes what type of physical activity do you participate in: none seatbelt use: always do you feel safe at home: Yes 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 HPI ERAS pre op: Details: PAVITHRA CAMPBELL is a 29 year old who presents for persistent pelvic pain and endomtriosis. failed mirena IUD and hormonal therapy discussed surgical managment plan AMANDO SAENZ. Pregancy History 2 Elective abortions Hx Para 1 Spontaneous abortions Hx # Term Pregnancies Ectopic pregnancies Hx # Pregnancies Multiple births # of living children Past Pregnancies Del. Date Name GA/Weeks Outcome Route Bth Weight Infant Gen Labor Lgth Anesthesia Del Locatn Provider FOB Unknown 2007 Cristi 39 live - full term 6lbs 11oz Male [place] ROS Const Constitutional: Denies fatigue, fever(s), headache(s), increased appetite, poor appetite, weight gain or weight loss ENT ENT: Reports system reviewed and no additional complaints, except as docu Cardio Card: Denies chest pain Resp Resp: Denies cough or dyspnea GI GI: Reports as per HPI; denies abdominal pain, constipation, nausea or vomiting : Reports as per HPI; denies difficulty urinating, painful urination, nipple discharge, urinary frequency, urinary incontinence, urinary hesitancy, urinary urgency, vaginal discharge, vaginal dryness, vaginal odor or vaginal itching Musc Musc: Denies joint pain, back pain or muscle weakness Skin Skin/Breast: Denies change in hair, breast lump, breast pain, breast skin changes or nipple discharge Neuro Neuro: Reports system reviewed and no additional complaints, except as docu Psych Psych: Reports system reviewed and no additional complaints, except as docu Endo Endo: Denies cold intolerance, excessive sweating, heat intolerance or increased thirst Arthur/Lymph Hematologic/Lymphatic: Denies easy bleeding, Denies easy bruising, Denies enlarged lymph nodes Exam Const General: cooperative, healthy appearing, comfortable, no acute distress, well developed Nutritional Appearance: average body habitus Orientation: alert [facility] Head: normal to inspection, normocephalic Neck Neck: normal visual inspection, trachea midline Thyroid: thyroid normal Chest Chest palpation & inspection: normal inspection of the chest Resp Effort & Inspection: normal respiratory effort Cardio Rate: regular rate Rhythm: regular rhythm Heart Sounds: S1 normal, S2 normal GI Inspection: normal to inspection, non-distended Palpation: soft, no hepatosplenomegaly General: bladder normal to palpation External Female Exam: normal external appearance, normal appearance of the urethra Urethra: normal appearance of the urethra, normal palpation, no discharge Speculum Exam - Vagina: normal appearance of the vagina, normal vaginal discharge Speculum Exam - Cervix: normal appearance of the cervix, nontender Bimanual Exam- Vagina & Uterus: normal bimanual exam, uterine size normal, bladder normal to palpation, uterine shape normal, No cervical tenderness, uterine mobility normal, uterine consistency normal, normal cervical palpation, uterus non-tender Bimanual Exam- Adnexa, other: normal adnexae, adnexae mobile, no adnexal masses, pelvic support normal Pelvic Support: normal Musc Other: gross motor intact no deficits, full bilateral strength Skin General: no rashes or lesions noted Neuro General: alert, awake, moves all extremities, no focal motor deficits Motor: muscle tone normal throughout Extrem General: normal to inspection, no pedal edema Psych Appearance: grossly normal Mental Status: mental status grossly normal Affect: normal affect Speech and Movement: speech and movement normal Assessment & Plan Problems 1. Family history of von Willebrand disease Z83.2 screen for, plan no lovenox preop discussed with patient due to family history hemorrhage 2. Endometriosis N80.9 mirena iud failed, discussed medical versus minor and major surgical options, plan on LAVH BS cysto 3. PCOS (polycystic ovarian syndrome) E28.2 on mirena- signficant spotting daily. Plan 8 cm uterus After discussing the patient's diagnosis and treatment plan options, patient wishes to proceed with surgical management. I have discussed with the patient the risks, benefits, and alternatives of the procedure which include but are not limited to risks of anesthesia, bleeding, infection, possible damage to bowel, bladder, or surrounding vasculature which could lead to additional surgery to evaluate any complications. Patient agrees to procedure and wishes to proceed. ACOG/uptodate references given for additional information regarding procedure. Coding Level of Care Code No Charge Diagnoses Family history of von Willebrand disease Z83.2 Endometriosis N80.9 PCOS (polycystic ovarian syndrome) E28.2 UPDATE- I have seen the patient and performed any clinically relevant updates to the history and physical exam. Yanira Shelley MD
[2019-12-06] MEDS: Magnesium Sulfate 4gm/100mL 4 GM/100 ML IV.SOLN. IV (06:15)
[2019-12-06] MEDS: Phenazopyridine 95 MG Tablet 190 MG PO (06:16)
[2019-12-06] MEDS: Lactated Ringers 1,000 ML 70 ML IV (06:16)
[2019-12-06] MEDS: Acetaminophen 500 MG Tablet 1000 MG PO (06:16)
[2019-12-06] MEDS: Gabapentin 600 MG Tablet PO (06:16)
[2019-12-06] MEDS: dexAMETHasone 10 MG/ML Vial 8 MG IV (06:16)
[2019-12-06] MEDS: Scopolamine 1mg/72hr Patch 1 PATCH TRANSDERM. (06:17)
[2019-12-06] MEDS: Celecoxib 200 MG Capsule 400 MG PO (06:17)
[2019-12-06] MEDS: Ondansetron 4 MG/2 ML Vial IV (07:00)
[2019-12-06] MEDS: Lactated Ringers 1,000 ML 40 ML IV (07:00)
--- NOTE | 2019-12-06 07:30 | HYST_PTH ---
PATIENT: PAVITHRA CAMPBELL [place] [facility] [place][id number] AGE/SX: 29/F ROOM: RE12/06/[address]: Dr. Yanira Shelley MD : 1990 BED: DIS: 12/06/2019 SPEC #: [id number] RECD: 12/06/19 11:53 STATUS: CARLY KENA #: [id number] MACRINA: 12/06/19 07:[address]: Yanira Shelley DEPT: SURGICAL PATHOLOGY RECD BY: Aj Ho ENTERED: 12/06/19 13:10 SP TYPE: HYSTERECT OTHR DR: No Primary Care Phys Tissues: Uterus, NOS Procedures: Surgery Specimen Level V HEADER OPERATION: ERAS, hysterectomy, LAVH, salpingectomy PRE-OP DIAGNOSIS: Endometriosis N80.9; PCOS E28.2 TISSUE SUBMITTED: Uterus, cervix, left fallopian tube MICROSCOPIC DIAGNOSIS Uterus, hysterectomy: Cervix - nabothian cysts and mild chronic inflammation. Endometrium - pseudo-decidualization. Myometrium - focal adenomyosis. Segment of right fallopian tube - no pathologic diagnosis. Left fallopian tube - no pathologic diagnosis. AM:fabien 12/07/19 MICROSCOPIC DESCRIPTION Slides are reviewed. GROSS DESCRIPTION Received in fixative is one container labeled with the patient's name and designated uterus, cervix, left fallopian tube. The specimen consists of a hysterectomy specimen consisting of uterus with cervix and detached fallopian tube identified as left. The uterus with cervix weighs 68 gm and measures 8 x 6 x 3.5 cm. The proximal portion of right fallopian tube is also attached to the uterus. The serosal surface is evans, glistening. The ectocervical mucosa is unremarkable. The external os is oval and patulous in contour. The endocervical canal measures 2.5 cm in length and the endocervical mucosa is evans, glistening and unremarkable. The triangular endometrial cavity measures 4 cm in length and 2.5 cm in width. The endometrium is evans, glistening without any mass lesion and measures up to 0.2 cm in thickness. Sections of the uterine wall do not reveal any mass lesion and it measures up to 2 cm in thickness. The proximal attached portion of the fallopian tube measures up to 2 cm in length and 0.3 cm in diameter. The detached fallopian tube is identified as left and measures 3.5 cm in length and up to 0.4 cm in diameter. The fimbrial end is identified. Asbestos Surveyor sections are submitted in eight cassettes as follows: 1??anterior cervix, 2 - posterior cervix, 3 & 4 - anterior uterine wall, 5 & 6 - posterior uterine wall, 7 - right fallopian tube, 8 - left fallopian tubes. The fallopian tubes are submitted in entirety. / Vernon 12/06/19 TC:5 CPT: 50420
--- NOTE | 2019-12-06 07:59 | PCM.OPRPT ---
Problem List (1) Endometriosis Status: Acute Comment: mirena iud failed, discussed medical versus minor and major surgical options, plan on LAVH BS cysto (2) Family history of von Willebrand disease Status: Acute Comment: screen for, plan no lovenox preop discussed with patient due to family history hemorrhage (3) PCOS (polycystic ovarian syndrome) Status: Acute Comment: on mirena- signficant spotting daily. Report of Operation Date of Procedure: 12/06/19 Pre-Operative Diagnosis: aub endometriosis Post-Operative Diagnosis: same Surgery/Procedure Performed:: lavh bs Description of Surgical Findings:: nl uterus tube on left and ovaries director of family service center: Alba Weaver Type of Anesthesia:: General Special Medications: none Specimen's removed: uterus tubes Drains: lawrence Estimated Blood Loss (mL): 100 Fluids Replaced: crystalloid Description of Procedure: Patient received preoperative antibiotics and SCDs were on preoperatively. Patient was taken back to the operating room and placed in the dorsal lithotomy position. General anesthesia was induced and patient was prepped and draped in normal sterile fashion. Uterine manipulator was placed inside the uterus and Lawrence catheter placed in the bladder. The umbilicus was grasped with towel clamps and an intraumbilical incision was made after injecting with quarter percent Marcaine and a Veress needle entered into the abdomen confirmed to be intra-abdominal with a low opening pressure. Abdomen was insufflated with CO2 gas and the Veress needle removed and the 5 mm trocar was placed under direct visualization without complication. Right and left lower quadrants were transilluminated and injected with quarter percent Marcaine and 5 mm ports placed under direct visualization. Pelvis was well visualized see operative findings for additional information. Bilateral fallopian tubes were identified and transected with the LigaSure device across the mesosalpinx to the level of the utero-ovarian ligament which was also transected with the LigaSure device. The broad ligament was opened up by transecting the round ligament bilaterally and skeletonizing the uterine vessels bilaterally and creating a bladder flap using the LigaSure device. The uterine arteries were transected bilaterally with good visualization of the bladder and the ureters were seen to be inferior lateral to the operative area. Attention was then paid to the vaginal portion of the procedure and the cervix was grasped with Guero clamps and circumferentially injected with dilute vasopressin. A circumferential incision was made and the vaginal mucosa was mobilized off posteriorly and the cul-de-sac entered into sharply and a longneck speculum placed. The anterior cul-de-sac was then identified and entered into sharply. The uterosacral ligaments were clamped cut and suture ligated with 0 Monocryl bilaterally followed by the cardinal ligaments which were clamped cut and suture ligated bilaterally with 0 Monocryl. The uterus serially descended and was removed without difficulty. Pelvic sidewall pedicles were checked and noted to have excellent hemostasis. The vaginal mucosa was reapproximated incorporating the posterior peritoneum. This was reapproximated using 0 Vicryl [id number] sutures. Excellent hemostasis was noted. The pelvis and cul-de-sac was well visualized and no significant active bleeding noted but some raw areas were seen on the peritoneum and therefore Marvel was applied. Pressure was taken down and the areas visualized and noted of excellent hemostasis. All ports were removed under direct visualization without complication and the abdomen was desufflated of air. The instruments removed from the abdomen and the vagina vaginal sweep was negative. Port sites on the abdomen were closed with 4-0 Monocryl interrupted sutures and Steri's and windows were applied. She was awoken and taken recovery in stable condition. Grafts/Implants Used: none - Complications none - Admit VTE Documentation VTE Present on Admission: No VTE Mechan Device Prophylaxis: SCD's Multi Select Codes - Urinary/Genital Urinary/Genital CPT Codes: 43535 LAVH+BS/O <250gr Uterus
--- NOTE | 2019-12-06 08:02 | PCM.DC.VHY ---
Discharge Diet: No Restrictions Discharge Activity: Return to Normal Activity, May Not Drive, May Shower May resume sexual activity in: 6-8 weeks Call your doctor if your incision/area has: Continuous Slow Oozing, Sudden Increased Bleeding, Increased Pain/ Swelling, Increased Redness, Foul Smelling Discharge Call your doctor if you observe: Fever of 101 or Higher, Inability to urinate, Inability to have a bowel movement, Using more than one pad per hour Allergies/Adverse Reactions: Allergies Sulfa (Sulfonamide Antibiotics) Allergy (Verified 12/06/19 06:08) Unknown Medications to take at Discharge levonorgestrel 20 mcg/24 hours (5 yrs) 52 mg intrauterine device 1 device INTRAUTERINE ONCE 07/28/19 naproxen 500 mg tablet 500 mg PO BID PRN #30 tab 09/28/19 Promethazine HCl 12.5 mg PO TID PRN 11/29/19 Naproxen [Naprosyn] 250 - 500 mg PO Q8H PRN PRN #30 tab 12/06/19 Oxycodone HCl/Acetaminophen [Percocet 5-325] 1 - 2 tablet PO Q6H PRN PRN 7 Days #15 tablet 12/06/19 The following prescriptions were given: Naproxen [Naprosyn] 250 - 500 mg PO Q8H PRN PRN #30 tab PRN Reason: MILD PAIN Transmission Status: Pending to [facility] Oxycodone HCl/Acetaminophen [Percocet 5-325] 1 - 2 tablet PO Q6H PRN PRN 7 Days #15 tablet PRN Reason: Pain Transmission Status: Sent to [facility] Orders to be completed after discharge: Type & Screen Time Frame: 11/29/19, Facility: [facility], Location: Laboratory CBC-Complete Blood Cnt No Diff Time Frame: 11/29/19, Facility: [facility], Location: Laboratory Partial Thromboplast Time Time Frame: 11/29/19, Facility: [facility], Location: Laboratory Prothrombin Time w/INR Time Frame: 11/29/19, Facility: [facility], Location: Laboratory Von Willebrand Factor Activity Time Frame: 11/29/19, Facility: [facility], Location: Laboratory Primary Care Physician: Care Physician,No Primary [Primary Care Provider] - Test Results: Test results from this visit will be discussed in further detail at your follow-up appointment, if applicable. Please Follow Up With: Yanira Shelley MD - [phone]
[2019-12-06] MEDS: Cefazolin 2 GM in 0.9% Normal Saline 100 ML IV (08:04)
[2019-12-06] MEDS: Vasopressin 20 UNITS/ML Vial (09:00)
[2019-12-06] MEDS: Bupivacaine 0.25% 30 ML Vial (09:00)
--- NOTE | 2019-12-06 12:38 | NURSING ---
pT HAVING PRESSURE IN BLADDER FEELING LIKE SHE HAS TO VOID CONTINUALLY, STATES SITTING WITH CATHATER IS ALSO UNCOMFORTABLE. Hernan MUNIPULATED, NO ISSUES WITH DRAINING, PT AMBULATED IN HALLS. cALL PLACED TO DOCTOR Vigil WHO STATES HERNAN CAN BE D/C
[2019-12-06] MEDS: Ketorolac 30 MG/ML Syringe IV (13:49)
[2019-12-06 16:00] LABS: Absolute Lymphocyte Count 0.88 X10^3/uL (0.83-4.51); Absolute Neutrophil Count 20.2 X10^3/uL (2.0-7.7); Basophil# 0.03 X10^3/uL; Basophil% 0.1 % (0-1); Lymphocyte # 0.88 X10^3/ul (4.0); Lymphocyte % 4.1 % (19-41); Mean Corp Hgb Conc 33.3 g/dL (32-36); Mean Corpuscular Hgb 30.4 pg (27.0-32.0); Mean Corpuscular Volume 91.1 fL (81-99); Monocyte# 0.09 X10^3/uL; Monocyte% 0.4 % (0-10); NRBC Flagged by Analyzer 0 % (0-5); Neutrophil % 94.8 % (47-70); POSITIVE DIFFERENTIAL YES; Platelet Count 371 K/mm3 (150-450); RBC Distribution Width CV 13.1 % (11.6-14.6); RBC Distribution Width SD 43.8 fl (35.1-43.9); Red Blood Count 4.61 M/mm3 (4.2-5.4); White Blood Count 21.3 K/mm3 (4.4-11.0)
[2019-12-06 16:36] LABS: Differential Indicated SCAN CRITERIA MET
[2019-12-06 16:37] LABS: Differential Comment SCANNED
== END 2019-12-06 17:00 | disposition home or self-care (01) ==
LOC: SDC 05:31 → AC 05:31 → MS3 12-07 08:28
PROVIDERS: Referring Provider Obstetrics & Gynecology; Visit Provider Obstetrics & Gynecology
PROC: 0UT9FZZ Resection of Uterus, Via Natural or Artificial Opening With Percutaneous Endoscopic Assistance (ICD-10-PCS; CPT 58552; principal; 2019-12-06 07:15)
DX: N93.9 Abnormal uterine and vaginal bleeding, unspecified (principal); N80.0 Endometriosis of uterus; E28.2 Polycystic ovarian syndrome; N88.8 Other specified noninflammatory disorders of cervix uteri; F17.200 Nicotine dependence, unspecified, uncomplicated; Z79.3 Long term (current) use of hormonal contraceptives; Z83.2 Family history of diseases of the blood and blood-forming organs and certain disorders involving the immune mechanism
CPT/HCPCS: 58552; 36415; 81025; 82962; 85025; 85027; 85610; 85730; 86850; 86900; 86901; 88307; 99406; J7120; J2405

== ENCOUNTER → 2019-12-21 | Outpatient (CLI) | payer OTHER, SELFPAY ==
[2019-12-21 10:24] VITALS: BMI 31.4
== END | disposition home or self-care (01) ==
LOC: LABSPEC 13:12
PROVIDERS: Referring Provider Obstetrics & Gynecology; Visit Provider Obstetrics & Gynecology
DX: R35.0 Frequency of micturition (principal)
CPT/HCPCS: 87086; 87088

== ENCOUNTER 2020-03-02 19:08 | Emergency (ER) | payer OTHER, SELFPAY ==
[2020-01-17 09:39] VITALS: BMI 31.4
[2020-03-02 19:09] VITALS: BP 126/85; PULSE 109; RESP 15; TEMP 36.7; O2SAT 98; BMI 31.4
--- NOTE | 2020-03-02 19:37 | CT_ITS ---
STUDY: CT ABDOMEN AND PELVIS WITHOUT CONTRAST REASON FOR EXAM: Female, 29 years old. RT SIDED ABDOMEN PAIN RADIATING TO RT FLANK,RECENT BLADDER INFECTION -- HX:ENDOMETRIOSIS,PCOS,ECTOPIC -- SURGERY:UTERUS ABD BOTH FALLOPIAN TUBES RADIATION DOSAGE (If Supplied By Facility): CTDIvol = ( 12.40 ) mGy, DLP = ( 600.75 ) mGycm TECHNIQUE: Transaxial images were obtained from the dome of the diaphragm to the symphysis pubis without oral contrast, and without intravenous contrast. Sagittal and coronal images were reconstructed. Individualized dose optimization techniques were used for this CT. COMPARISON: Prior abdomen and pelvic CT exam of October 14, 2019 FINDINGS: The visualized lung bases are unremarkable. The visualized portions of the heart are within normal limits. Normal liver. Normal gallbladder and extrahepatic biliary system. Normal spleen. Normal pancreas. Normal bilateral adrenal glands. Normal right kidney. Normal left kidney. Food filled stomach. Normal small intestine. Normal colon. The appendix is visualized and appears normal. Normal abdominal aorta. Normal inferior vena cava. Normal retroperitoneum. Normal urinary bladder. The uterus is not identified. Normal left ovary. Mild free fluid of the pelvis. Right ovary not distinguishable from free fluid. I suspect it is present and enlarged. Small fatty right groin hernia. Normal osseous structures. CT/Abdomen/Pelvis without Cont IMPRESSION: Normal size of the kidneys bilaterally without cortical abnormality, hydronephrosis, renal, ureteral or bladder stones. Unremarkable nondistended urinary bladder. No acute bowel related findings. Negative for obstruction, perforation or inflammatory bowel changes. A normal appendix is identified. Unremarkable liver, spleen and pancreas with a nondistended gallbladder. Mild free fluid of the pelvis. She appears to be status post a hysterectomy with a normal-appearing left ovary. The right ovary may be present and obscured by free fluid if cystic or polycystic. Electronically Signed: Elba Guy MD at 20:42 EDT , Service support ,
[2020-03-02] MEDS: Ondansetron 4 MG/2 ML Vial IV (19:58)
[2020-03-02] MEDS: 0.9% Normal Saline 1,000 ML 1000 ML IV (19:58)
[2020-03-02] MEDS: Morphine 4 MG/ML Syringe IV (19:59)
[2020-03-02 20:08] LABS: Bacteria 0 SEEN /hpf (None Seen); Mucous, Urine 0 SEEN /hpf (<or=2+); White Blood Cells 0 SEEN /hpf (0-5)
[2020-03-02 20:12] LABS: Absolute Lymphocyte Count 4.15 X10^3/uL (0.83-4.51); Absolute Neutrophil Count 7.1 X10^3/uL (2.0-7.7); Basophil# 0.09 X10^3/uL; Basophil% 0.7 % (0-1); Eosinophil# 0.59 X10^3/uL; Eosinophils% 4.6 % (0-5); Hematocrit 40.6 % (37-47); Hemoglobin 13.6 g/dL (12.0-15.0); Lymphocyte # 4.15 X10^3/ul (4.0); Lymphocyte % 32.3 % (19-41); Mean Corp Hgb Conc 33.5 g/dL (32-36); Mean Corpuscular Hgb 30.4 pg (27.0-32.0); Mean Corpuscular Volume 90.8 fL (81-99); Mean Platelet Vol. 9.8 fl (6.2-12.0); Monocyte# 0.91 X10^3/uL; Monocyte% 7.1 % (0-10); NRBC Flagged by Analyzer 0 % (0-5); Neutrophil # 7.05 X10^3/uL (2.7-7.7); Neutrophil % 54.9 % (47-70); POSITIVE MORPHOLOGY YES; Platelet Count 331 K/mm3 (150-450); RBC Distribution Width CV 12.9 % (11.6-14.6); RBC Distribution Width SD 42.8 fl (35.1-43.9); Red Blood Count 4.47 M/mm3 (4.2-5.4); White Blood Count 12.8 K/mm3 (4.4-11.0)
[2020-03-02 20:14] LABS: Differential Indicated SCAN CRITERIA MET
--- NOTE | 2020-03-02 20:23 | ED.DCSUM_ITS ---
- ER Visit Summary Date of Service: 03/02/20 Chief Complaint: Right flank pain History of Present Illness: The patient is a [address] Ozzy Burns and Dr. Ngo. She had the abrupt onset of right flank pain at 2:00 this afternoon. It is a sharp pain that is 8 out of 10 with movement 7 out of 10 remains still. States there is no change with food. She is had nausea without vomiting. No diarrhea. Last bowel was today. No known hematochezia. No dysuria or frequency. She status post hysterectomy. Patient reports is never had anything like this before. She denies any spicy or fatty food intolerance. She reports that she had not had anything to eat today prior to the onset of this. Physical Examination: Vitals: Stable. Afebrile. General: Well-nourished and well-developed. Head: Normocephalic atraumatic. Neck: Supple, no lymphadenopathy. No JVD. Nontender. Cardiovascular: Regular rate and rhythm. No murmurs. Respiratory: No respiratory distress. Clear to auscultation bilaterally. Abdominal: Soft, mild right upper quadrant tenderness palpation, nondistended, normal bowel sounds. No guarding, rebound, or peritoneal signs. Back: Mild right CVA tenderness. Extremities: Nontender, no edema. Skin: Normal color, no rash. Neurologic: Alert and oriented ?3. Cranial nerves II through XII are intact. Normal strength and sensation. Psych: Normal affect. Test Results: CBC shows a white count 12.8. Chem-7 shows a chloride of 109 and glucose 139. LFTs are normal. Lipase is negative. Urinalysis is nitrite positive, but the patient has been taking Pyridium and her micro is negative. Clinical Impression(s) from Imaging Studies Abdomen/Pelvis CT 03/02/20 19:37 IMPRESSION: Normal size of the kidneys bilaterally without cortical abnormality, hydronephrosis, renal, ureteral or bladder stones. Unremarkable nondistended urinary bladder. No acute bowel related findings. Negative for obstruction, perforation or inflammatory bowel changes. A normal appendix is identified. Unremarkable liver, spleen and pancreas with a nondistended gallbladder. Mild free fluid of the pelvis. She appears to be status post a hysterectomy with a normal-appearing left ovary. The right ovary may be present and obscured by free fluid if cystic or polycystic. Electronically Signed: Elba Guy MD at 20:42 EDT , Service support , Transvaginal US 03/02/20 20:56 IMPRESSION: Large volume predominantly solid right ovary with few subcentimeter follicles. Normal size of the left ovary with a plethora of peripheral subcentimeter follicles. Findings are consistent with polycystic ovaries. Normal Doppler flow bilaterally. Moderate free fluid of the pelvis. The uterus is absent. No additional adnexal masses. Electronically Signed: Elba Guy MD at 21:40 EDT , Service support , Emergency Department Course and Treatment: Patient had an IV placed. She was given dose of morphine and Zofran IV. She is resting more comfortably. Treatment Plan: The patient was discussed with Dr. Ozzy Burns. She will be discharged with naproxen and [place]. Instructed follow-up Dr. Ozzy Burns in 1 week if not improving. Return to the emergency department for any worsening symptoms. Disposition: To home in improved and stable condition. Impression: 1. Ovarian cysts on right. This note was generated with [employer] dictation software. It may contain incorrect words, spelling, and punctuation that were not noted in review of the chart prior to signing ED Disposition - Plan for ED Patient: Instructions: What Are Ovarian Cysts? Prescriptions: Naproxen [Naprosyn] 500 mg PO BID #14 tablet Hydrocodone Bitart/Apap 5-325 [[place] 5MG-325MG] 1 tablet PO Q4H PRN PRN 2 Days #10 tablet PRN Reason: Pain Referrals: Yanira Shelley MD [STAFF PHYSICIAN] - 1 Week if not improving
[2020-03-02 20:37] LABS: AST(SGOT) 18 U/L (15-37); Alanine Aminotransfer ALT/SGPT 30 U/L (13-56); Albumin, Serum 3.7 g/dL (3.2-5.0); Alkaline Phosphatase 75 U/L (45-117); Anion Gap 8 (5-15); BUN 11 mg/dL (7-18); BUN/Creat Ratio 13.9 RATIO (10-20); Bilirubin, Direct 0.06 mg/dL (0.00-0.30); Calcium,Total 8.8 mg/dL (8.5-10.1); Chloride 109 mmol/L (98-107); Creatinine, Serum 0.79 mg/dL (0.55-1.02); EST Glomerular Filtration Rate 90 mL/min (>60); Est Glom Filt Rate - Afr Amer 108 mL/min (>60); Estimated Creatinine Clearance 85.35 ml/min; Globulin 3.6 g/dL (2.2-4.2); Glucose 139 mg/dL (74-106); Lipase 84 U/L (73-393); Potassium 3.5 mmol/L (3.5-5.1); Protein, Total 7.3 g/dL (6.4-8.2); Sodium Level 139 mmol/L (136-145)
[2020-03-02 20:51] LABS: Anisocytosis RARE; Macrocytosis RARE; Platelet Estimate ADEQUATE (ADEQ); Red Cell Morphology N CHROM NORMAL (NORM C&C)
--- NOTE | 2020-03-02 20:56 | US_ITS ---
STUDY: ULTRASOUND OF THE FEMALE PELVIS - COMPLETE REASON FOR EXAM: Female, [address] RTO RT ADX PAIN JUST TODAY TECHNIQUE: Transvaginal real-time examined with grayscale and image documentation. TECHNICAL QUALITY: Adequate. COMPARISON: Abdomen and pelvic CT exam of 03/02/2020 FINDINGS: The uterus surgically removed. The right ovary is visualized. The right ovary measures 6.3 x 3.6 x 3.0 cm. Right ovary is generally large and mostly solid with scattered subcentimeter follicles. There is no visualized right adnexal mass or complex lesion. There is normal arterial and normal venous vascularity. The left ovary is visualized. The left ovary measures 3.1 x 2.3 x 2.0 cm. Numerous subcentimeter peripheral follicles. There is no visualized left adnexal mass or complex lesion. There is normal arterial and normal venous vascularity. Moderate free fluid of the pelvis. US/Transvaginal Non- IMPRESSION: Large volume predominantly solid right ovary with few subcentimeter follicles. Normal size of the left ovary with a plethora of peripheral subcentimeter follicles. Findings are consistent with polycystic ovaries. Normal Doppler flow bilaterally. Moderate free fluid of the pelvis. The uterus is absent. No additional adnexal masses. Electronically Signed: Elba Guy MD at 21:40 EDT , Service support ,
[2020-03-02 21:26] LABS: Color, Urine Yellow (Yellow); Glucose, Dipstick Normal (Normal); Ketone-Dipstick Negative (Negative); Leukocyte Esterase-Dipstick 25 /ul (Negative); Nitrite-Dipstick Positive (Negative); Occult Blood-Urine 10 /ul (Negative); Protein-Dipstick Negative (Negative); Specific Gravity, Urine 1.025 (1.002-1.030); Urine Bilirubin Dipstick Negative (Negative); Urine Clarity Clear (Clear); Urine Urobilinogen 1 mg/dl (Normal)
[2020-03-02 21:40] LABS: Red Blood Cells-Urine 0-5 SEEN /hpf (0-5); Squamous Epithelial Cells - UA 0-5 SEEN /hpf (5-10)
[2020-03-02 22:10] VITALS: BP 108/86; PULSE 87; RESP 17; O2SAT 97
== END 2020-03-02 22:12 | disposition home or self-care (01) ==
LOC: ED 20:06
PROVIDERS: Emergency Provider Emergency Medicine; PCP Family Medicine
DX: N83.201 Unspecified ovarian cyst, right side (principal); Z90.710 Acquired absence of both cervix and uterus; Z72.0 Tobacco use
CPT/HCPCS: 74176; 76830; 80048; 80076; 81001; 83690; 85025; 96361; 96374; 96375; 99283; J7030; J2405

== ENCOUNTER → 2020-04-18 13:53 | Outpatient (CLI) | payer OTHER, SELFPAY ==
--- NOTE | 2020-04-18 13:55 | US_ITS ---
STUDY: ULTRASOUND OF THE FEMALE PELVIS - COMPLETE REASON FOR EXAM: Female, 29 years old. RIGHT PELVIC PAIN LMP: The patient is status post hysterectomy. TECHNIQUE: Transabdominal and Transvaginal TECHNICAL QUALITY: Adequate. COMPARISON: Comparison is made with prior study dated March 02, 2020. FINDINGS: The patient is status post hysterectomy. The right ovary is visualized. The right ovary measures 2 cm x 2.7 cm x 3.2 cm. There is no right ovarian cyst or ovarian mass. A complex right ovarian cyst is seen measuring 1.3 cm x 2.1 cm x 1.5 There is normal arterial and normal venous vascularity. The left ovary is visualized. The left ovary measures 3.6 cm x 3.1 cm x 2.4 cm. A dominant follicle measuring 8 mm x 10 mm is seen. There is no visualized left adnexal mass or complex lesion. There is normal arterial and normal venous vascularity. There is no fluid in the cul-de-sac. The pre void volume of the bladder was 376 ml. Polycystic ovary disease: No. US/Pelvic (Non ) IMPRESSION: 2.1 cm x 1.3 cm x 1.5 cm complex cyst in the right ovary. Follow-up is recommended. Status post hysterectomy. Electronically Signed: Vance Laboy, at 15:20 EDT , Service support ,
--- NOTE | 2020-04-18 13:55 | US_ITS ---
STUDY: ULTRASOUND OF THE FEMALE PELVIS - COMPLETE REASON FOR EXAM: Female, 29 years old. RIGHT PELVIC PAIN LMP: The patient is status post hysterectomy. TECHNIQUE: Transabdominal and Transvaginal TECHNICAL QUALITY: Adequate. COMPARISON: Comparison is made with prior study dated March 02, 2020. FINDINGS: The patient is status post hysterectomy. The right ovary is visualized. The right ovary measures 2 cm x 2.7 cm x 3.2 cm. There is no right ovarian cyst or ovarian mass. A complex right ovarian cyst is seen measuring 1.3 cm x 2.1 cm x 1.5 There is normal arterial and normal venous vascularity. The left ovary is visualized. The left ovary measures 3.6 cm x 3.1 cm x 2.4 cm. A dominant follicle measuring 8 mm x 10 mm is seen. There is no visualized left adnexal mass or complex lesion. There is normal arterial and normal venous vascularity. There is no fluid in the cul-de-sac. The pre void volume of the bladder was 376 ml. Polycystic ovary disease: No. US/Transvaginal Non- IMPRESSION: 2.1 cm x 1.3 cm x 1.5 cm complex cyst in the right ovary. Follow-up is recommended. Status post hysterectomy. Electronically Signed: Vance Laboy, at 15:20 EDT , Service support ,
== END ==
LOC: US 13:55
PROVIDERS: PCP Family Medicine; Referring Provider Obstetrics & Gynecology; Visit Provider Obstetrics & Gynecology
DX: N80.9 Endometriosis, unspecified (principal)
CPT/HCPCS: 76830; 76856; 93976

== ENCOUNTER → 2020-05-10 07:33 | Outpatient (CLI) | payer OTHER, SELFPAY ==
[2020-05-10 06:46] VITALS: BMI 31.4
--- NOTE | 2020-05-10 07:33 | RAD_ITS ---
STUDY: X-RAY - PELVIS AND LEFT HIP REASON FOR EXAM: Left hip pain radiating down side of upper leg, no specific injury. TECHNIQUE: 2 views of the pelvis and hip. COMPARISON: None. FINDINGS: Normal visualized soft tissue structures. 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 Normal bilateral superior and inferior pubic rami. Normal pubic symphysis. Normal bilateral ischial tuberosities. Normal visualized femoral head. Normal acetabulum. Normal hip joint. RAD/HIP, UNI W/ Pelvis 2-3 Views IMPRESSION: Mild left osteitis condensans ilium. Otherwise, unremarkable x-ray examination of the pelvis and left hip. Electronically Signed: Facundo Banuelos MD at 8:23 EDT Tel , Service support ,
== END ==
LOC: HPRAD 07:33
PROVIDERS: PCP Family Medicine; Referring Provider Physician Assistant; Visit Provider Physician Assistant
DX: M25.552 Pain in left hip (principal)
CPT/HCPCS: 73502

== ENCOUNTER 2020-07-31 18:15 | Emergency (ER) | payer OTHER, SELFPAY ==
[2020-05-10 06:46] VITALS: BMI 31.4
[2020-07-31 18:16] VITALS: BP 150/91; PULSE 91; RESP 16; TEMP 36.1; O2SAT 100; BMI 30.2
--- NOTE | 2020-07-31 19:35 | ED.VIS.GEN ---
History of Present Illness Chief Complaint: Headache Informant: Patient Narrative: Patient is a 30-year-old female who presents to the emergency department for left-sided headache. This is been present over the past 4 days. She does have a history of similar headaches in the past although swelling slightly goes down lower into the jaw area. She denies any vision changes. No ear pain. She currently rates the pain as a 6 out of 10. Movements do seem to make the symptoms worse. Has been taking Excedrin and ibuprofen for this at home. She denies any fevers or chills. No nausea or vomiting. No photophobia. This is not the worst headache of her life. No head trauma. No neck stiffness but does have some left-sided upper neck pain. Majority the pain is over the left jehovah's witness region. She denies any chest pain or shortness of breath. Past Medical History - Allergies and Home Meds Allergies/Adverse Reactions: Allergies Sulfa (Sulfonamide Antibiotics) Allergy (Verified 05/10/20 06:46) Unknown Primary Care Physician: José Miguel Ngo MD [Primary Care Provider] - 1-2 Days if not improving Prior records reviewed: Yes Past Medical History: - - PCOS, endometriosis Smoking Status: Current every day smoker Review of Systems All systems negative except as indicated General: Denies: Chills, Fever, Sweats Eyes: Denies: Visual changes - bilaterally, Diplopia ENT: Denies: Rhinorrhea, Sore throat Cardiovascular: Denies: Chest pain, Palpitations Respiratory: Denies: Dyspnea, Cough, Dyspnea on exertion Gastrointestinal: Denies: Abdominal pain, Nausea, Vomiting, Diarrhea Genitourinary: Denies: Dysuria, Hematuria, Frequency Musculoskeletal: Reports: Neck pain. Denies: Back pain, Extremity Pain Skin: Denies: Rash, Wounds Neurological: Reports: Headache. Denies: Weakness, Numbness Physical Exam Vital Signs/Narrative: Vital Signs Temp Pulse Resp BP Pulse Ox 07/31/20 18:16 97 F L 91 16 150/91 H 100 General: Well nourished, Well developed, No Acute Distress Head: Normocephalic, Atraumatic. Negative for: Tenderness - No significant tenderness over the temporal region. No mastoid tenderness. Eyes: Perrl, EOMI ENT: Moist mucous membranes, No rhinorrhea, TM's clear Neck: Supple, Nontender Cardiovascular: Regular rate, Regular rhythm, No murmurs Respiratory: No distress, CTA bilaterally, Chest nontender Abdomen: Soft, Nontender, Nondistended, Normal bowel sounds Back: Nontender, Normal Inspection Extremities: Nontender, No edema Skin: Normal color, No rash Neurological: Alert, Oriented x3, Cranial nerves II-XII grossly intact, Normal Strength, Normal Sensation Psychological: Normal affect, Normal Mood Diagnostic/Tx/Re-eval - Medical Decision Making Patient presents to the ED for head and left-sided upper neck pain. Is not the worst headache of her life. No jaw claudication. No fevers. No vision changes. We will treat this symptomatically as a tension type headache. She is given a dose of Toradol which did not help significantly so she was given a dose of Reglan and Benadryl. After that treatment she is feeling much better. We will give her a prescription for Flexeril for home treatment. She understand that this can make her tired and should not operate machinery on this. Will discharge home in stable condition at this time. She is to follow-up with her PCP otherwise. If she has any worsening symptoms she is to return to the emergency department. She understands and is agreeable this plan. ED Disposition - Plan for ED Patient: Disposition: Home or Assisted Living Diagnosis: Headache, Neck pain Instructions: ED Headache Unspecified, ED Neck Pain Prescriptions: cycloBENZAPRine HCl [Flexeril] 10 mg PO TID PRN PRN 3 Days #9 tab PRN Reason: Muscle Spasm Transmission Status: Received by [facility] Referrals: José Miguel Ngo MD [Primary Care Provider] - 1-2 Days if not improving
[2020-07-31] MEDS: Ketorolac 30 MG/ML Syringe IV (19:47)
[2020-07-31] MEDS: 0.9% Normal Saline 1,000 ML 999 ML IV (19:47)
[2020-07-31] MEDS: DiphenhydrAMINE 50 MG/ML Syringe 25 MG IV (20:23)
[2020-07-31] MEDS: Metoclopramide 10 MG/2 ML Vial 5 MG IV (20:23)
== END 2020-07-31 21:13 | disposition home or self-care (01) ==
PROVIDERS: Emergency Provider Emergency Medicine; PCP Family Medicine
DX: R51 Headache (principal); M54.2 Cervicalgia; F17.200 Nicotine dependence, unspecified, uncomplicated
CPT/HCPCS: 96361; 96374; 96375; 99283; J7030; A4216

== ENCOUNTER 2020-09-29 12:13 | Emergency (ER) | payer OTHER, SELFPAY ==
[2020-09-29 12:13] VITALS: BP 139/79; PULSE 99; RESP 20; TEMP 36.1; BMI 30.4
--- NOTE | 2020-09-29 13:07 | ED.DCSUM_ITS ---
- ER Visit Summary Date of Service: 09/29/20 Chief Complaint: Abdominal pain History of Present Illness: The patient is a 30 F who presents with right lower quadrant abdominal pain that began today. Patient states this feels similar to prior ovarian cyst. Patient states it also feels similar to when she had a tubal rupture. Patient describes her pain as sharp. Patient states it is localized to the right lower quadrant. Patient states the pain began in the right lower quadrant. Patient states her pain is worse with movement and better when she remains still and lays flat. Patient admits to some nausea and vomiting. Patient states there was some blood in her emesis but states she knows it is from a broken blood vessel because she has had that in the past. Patient denies any diarrhea, melena, or hematochezia. Patient denies any dysuria or hematuria. Physical Examination: Vital signs are stable. Patient is afebrile. Patient is in no acute distress. Oral mucosa is pink and moist. Neck is supple. Trachea is midline. There is no JVD. Heart was regular rate and rhythm. Lungs are clear and equal bilaterally. Abdomen is soft. Bowel sounds are normal. There is some right lower quadrant tenderness. There is no rebound or guarding noted. Rovsing sign was negative. Extremities are intact. There is no calf tenderness or edema. Cranial nerves II through XII are intact. There are no focal motor or sensory deficits. Test Results: CBC shows a mild leukocytosis of 11.3. Comprehensive metabolic profile was within normal limits. Urinalysis shows positive nitrates with a leukocyte esterase of only 25. There were 0-[address] scan of the abdomen and pelvis was obtained. There is an enlarged right ovary. There is no evidence of appendicitis. This was interpreted by the radiologist and reviewed by myself. Patient was still complaining of right lower quadrant abdominal pain. Because of this and the enlarged right ovary on CT scan, a pelvic ultrasound was ordered to rule out ovarian torsion. Emergency Department Course and Treatment: Patient was given IV fluids. Patient was given morphine and Zofran. Patient was given a repeat dose of morphine. Disposition: Care of the patient was turned over to the oncoming physician pending ultrasound results. Impression: 1. Right lower quadrant abdominal pain This note was generated with [employer] software. It may contain incorrect words, spelling, and punctuation that were not noted in review of the chart prior to signing ED Disposition - Plan for ED Patient: Referrals: José Miguel Ngo MD [Primary Care Provider] -
[2020-09-29] MEDS: Ondansetron 4 MG/2 ML Vial IV (13:09)
[2020-09-29] MEDS: 0.9% Normal Saline 1,000 ML 1000 ML IV (13:09)
[2020-09-29] MEDS: Morphine 4 MG/ML Syringe IV ×2 (13:09→15:04)
[2020-09-29 13:11] VITALS: PULSE 58; RESP 17; O2SAT 100
[2020-09-29 13:22] LABS: Mucous, Urine 0 SEEN /hpf (<or=2+); Red Blood Cells-Urine 0 SEEN /hpf (0-5)
[2020-09-29 13:23] LABS: Absolute Lymphocyte Count 1.82 X10^3/uL (0.83-4.51); Absolute Neutrophil Count 8.9 X10^3/uL (2.0-7.7); Basophil# 0.05 X10^3/uL; Basophil% 0.4 % (0-1); Eosinophil# 0.08 X10^3/uL; Eosinophils% 0.7 % (0-5); Hematocrit 41.5 % (37-47); Hemoglobin 13.8 g/dL (12.0-15.0); Lymphocyte # 1.82 X10^3/ul (4.0); Lymphocyte % 16.1 % (19-41); Mean Corp Hgb Conc 33.3 g/dL (32-36); Mean Corpuscular Hgb 31.4 pg (27.0-32.0); Mean Corpuscular Volume 94.5 fL (81-99); Mean Platelet Vol. 10.1 fl (6.2-12.0); Monocyte# 0.39 X10^3/uL; Monocyte% 3.5 % (0-10); NRBC Flagged by Analyzer 0 % (0-5); Neutrophil % 78.9 % (47-70); Platelet Count 357 K/mm3 (150-450); RBC Distribution Width SD 44.9 fl (35.1-43.9); Red Blood Count 4.39 M/mm3 (4.2-5.4); White Blood Count 11.3 K/mm3 (4.4-11.0)
[2020-09-29 13:32] LABS: Color, Urine Yellow (Yellow); Glucose, Dipstick Normal (Normal); Ketone-Dipstick 5 mg/dl (Negative); Leukocyte Esterase-Dipstick 25 /ul (Negative); Nitrite-Dipstick Positive (Negative); Occult Blood-Urine 10 /ul (Negative); Protein-Dipstick 15 mg/dl (Negative); Urine Clarity Sl. Cloudy (Clear); Urine Urobilinogen 4 mg/dl (Normal); Urine pH 6.5 (5.0 - 8.0)
[2020-09-29 13:33] LABS: Urine Bilirubin Dipstick 3 mg/dL (Negative)
[2020-09-29 13:41] LABS: ALB/GLOB Ratio 1.3 RATIO (0.9-2.4); AST(SGOT) 10 U/L (15-37); Alanine Aminotransfer ALT/SGPT 24 U/L (13-56); Albumin, Serum 4.4 g/dL (3.2-5.0); Alkaline Phosphatase 85 U/L (45-117); Anion Gap 7 (5-15); BUN 12 mg/dL (7-18); BUN/Creat Ratio 15.7 RATIO (10-20); Calcium,Total 9.2 mg/dL (8.5-10.1); Chloride 108 mmol/L (98-107); Creatinine, Serum 0.77 mg/dL (0.55-1.02); EST Glomerular Filtration Rate 93 mL/min (>60); Est Glom Filt Rate - Afr Amer 112 mL/min (>60); Estimated Creatinine Clearance 82.96 ml/min; Globulin 3.5 g/dL (2.2-4.2); Glucose 95 mg/dL (74-106); Lipase 149 U/L (73-393); Potassium 3.9 mmol/L (3.5-5.1); Protein, Total 7.9 g/dL (6.4-8.2); Sodium Level 139 mmol/L (136-145)
[2020-09-29 13:44] LABS: Amorphous Sediment 1+; Bacteria 1+ /hpf (None Seen); Squamous Epithelial Cells - UA 0-5 SEEN /hpf (5-10); White Blood Cells 0-5 SEEN /hpf (0-5)
--- NOTE | 2020-09-29 14:31 | CT_ITS ---
STUDY: CT ABDOMEN AND PELVIS WITH CONTRAST REASON FOR EXAM: Female, 30 years old. RLQ PAIN SINCE THIS MORNING. HX OF PARTIAL HYSTERECTOMY RADIATION DOSAGE (If Supplied By Facility): CTDIvol = ( 13.28 ) mGy, DLP = ( 823.36 ) mGycm TECHNIQUE: Transaxial images were obtained from the dome of the diaphragm to the symphysis pubis without oral contrast. Oral and amp; IV Gastrografin and amp; 100mL Isovue-370 was administered. Sagittal and coronal images were reconstructed. Individualized dose optimization techniques were used for this CT. COMPARISON: CT 03/02/2020, pelvic ultrasound 04/18/2020 FINDINGS: The visualized lung bases are unremarkable. The visualized portions of the heart are within normal limits. Normal liver. Normal gallbladder and extrahepatic biliary system. Normal spleen. Normal pancreas. Normal bilateral adrenal glands. Normal right kidney. Normal left kidney. Normal visualized stomach. Normal small intestine. Normal colon. The appendix is visualized and appears normal. Normal abdominal aorta. Normal inferior vena cava. Normal retroperitoneum. Normal urinary bladder. Decreased amount of pelvic free fluid since 03/02/2020. There is persistent enlargement and heterogeneity of the right ovary as compared to the left with multiple peripheral follicles or small cysts. No stranding adjacent to the ovary, however. Normal abdominal wall. There are facet degenerative changes of the lumbar spine. CT/Abdomen/Pelvis WITH Contrast IMPRESSION: 1. No acute inflammatory process or bowel obstruction. The appendix has a normal CT appearance. 2. Asymmetric enlargement of the right ovary with persistent (albeit decreased) pelvic free fluid since prior CT of 03/02/2020. Electronically Signed: Shamar Spain MD (Brooks) at 14:51 EST , Service support ,
--- NOTE | 2020-09-29 14:55 | US_ITS ---
STUDY: ULTRASOUND TRANSVAGINAL CLINICAL: Female, 30 years old. RLQ PAIN X 1 DAY -- R/O TORSION -- HX OF RT O CYST SEEN ON 04/18/20 US -- HX OF HYSTERECTOMY 12/2019 DUE TO ENDOMETRIOSIS TECHNIQUE: Transvaginal COMPARISON: 04/18/2020. FINDINGS: Status post hysterectomy. Enlarged right ovary, measuring 5.9 x 5.9 x 4.0 cm. The previously noted cystic lesion is not appreciated. Normal left ovary, measuring 3.6 x 3.7 x 2.0 cm. There is a 1 cm cystic nodule or dominant follicle. There is mild free fluid in the pelvis. US/Transvaginal Non- IMPRESSION: Enlarged right ovary. The previously noted cystic lesion is not appreciated. Left ovarian cystic nodule versus dominant cyst. Correlation with MRI is recommended if symptoms persist. There is pelvic free fluid. No evidence of ovarian torsion. Electronically Signed: Bryce Hill DO at 16:37 EST Tel [phone], Service support ,
[2020-09-29 15:55] VITALS: BP 124/62; PULSE 63; RESP 16; O2SAT 98
--- NOTE | 2020-09-29 16:12 | ED.DCSUM_ITS ---
- ER Visit Summary Date of Service: 09/29/20 Chief Complaint: [] History of Present Illness: The patient is a 30 F [] Physical Examination: [] Test Results: [] Emergency Department Course and Treatment: [] Treatment Plan: [] Disposition: [] Impression: [] This note was generated with [employer] dictation software. It may contain incorrect words, spelling, and punctuation that were not noted in review of the chart prior to signing ED Disposition - Plan for ED Patient: Instructions: ED Cyst Ovarian Prescriptions: Hydrocodone Bitart/Apap 5-325 [[employer] 5MG-325MG] 1 tab PO Q6H PRN PRN 3 Days #10 tab PRN Reason: Pain Prescription Printed Ondansetron [Zofran Odt] 4 mg PO Q8H PRN PRN #10 tab PRN Reason: Nausea Prescription Printed Referrals: José Miguel Ngo MD [Primary Care Provider] -
== END 2020-09-29 16:20 | disposition home or self-care (01) ==
LOC: ED 14:07
PROVIDERS: Emergency Provider Emergency Medicine; PCP Family Medicine
DX: R10.31 Right lower quadrant pain (principal); R11.2 Nausea with vomiting, unspecified; Z90.710 Acquired absence of both cervix and uterus; Z72.0 Tobacco use
CPT/HCPCS: 74177; 76830; 80053; 81001; 83690; 85025; 87086; 87088; 93976; 94760; 96361; 96374; 96375; 96376; 99283; J7030; Q9967; A4216; J2405

== ENCOUNTER 2020-10-23 20:48 | Emergency (ER) | payer OTHER, SELFPAY ==
[2020-10-23 20:49] VITALS: BP 143/86; PULSE 95; RESP 20; TEMP 35.8; O2SAT 100; BMI 29.4
--- NOTE | 2020-10-23 21:23 | US_ITS ---
STUDY: ULTRASOUND TRANSVAGINAL CLINICAL: Female, 30 years old. RLQ PAIN TECHNIQUE: Transvaginal COMPARISON: None. FINDINGS: Status post hysterectomy. Normal right ovary, measuring 6.0 x 5.1 x 3.9 cm. The right ovary demonstrates decreased vascularity. There are multiple follicles without a dominant cyst. Normal left ovary, measuring 4.6 x 3.0 x 3.6 cm. There are multiple follicles without a dominant cyst. There is mild left adnexal free fluid. US/Transvaginal Non- IMPRESSION: Decreased vascularity of the right ovary requiring with clinical correlation. Electronically Signed: Bryce Hill DO at 23:33 EST Tel [phone], Service support ,
--- NOTE | 2020-10-23 21:24 | ED.VIS.GEN ---
History of Present Illness Chief Complaint: Abd Pain Narrative: This patient is a 30-year-old female who presents with severe right-sided pelvic pain. She was seen about a month ago for right lower quadrant pain and found to have an enlarged ovary with a possible cyst. Her symptoms have improved. She developed worsening pain beginning last night. This became severe couple of hours before presentation and she also developed nausea vomiting and diarrhea. No fevers. She otherwise denies any recent medical illness. She does have a history of ruptured ectopic with salpingectomy and later had a partial hysterectomy. Past Medical History - Allergies and Home Meds Allergies/Adverse Reactions: Allergies Sulfa (Sulfonamide Antibiotics) Allergy (Verified 10/23/20 20:51) Unknown Primary Care Physician: José Miguel Ngo MD [Primary Care Provider] - Past Medical History: None Smoking Status: Current every day smoker Review of Systems All systems negative except as indicated General: Denies: Fever Eyes: Denies: Visual changes - bilaterally ENT: Denies: Bilateral ear pain Cardiovascular: Denies: Chest pain Respiratory: Denies: Dyspnea Gastrointestinal: Reports: Abdominal pain, Nausea, Vomiting, Diarrhea Genitourinary: Reports: - - Pelvic pain Musculoskeletal: Denies: Myalgias, Arthralgias Skin: Denies: Rash Neurological: Denies: Headache Allergy: Denies: Uticaria Physical Exam Vital Signs/Narrative: Vital Signs Temp Pulse Resp BP Pulse Ox 10/23/20 20:49 96.4 F L 95 20 H 143/86 H 100 Inital Vital Signs reviewed: Yes General: Well nourished Head: Normocephalic Eyes: EOMI ENT: Moist mucous membranes Neck: Supple Cardiovascular: Regular rate, Regular rhythm Respiratory: No distress, CTA bilaterally Abdomen: Soft, - - Patient has right lower quadrant abdominal tenderness without guarding without rebound Skin: Normal color Neurological: Alert Psychological: Normal affect Diagnostic/Tx/Re-eval Impressions Transvaginal US 10/23/20 21:23 IMPRESSION: Decreased vascularity of the right ovary requiring with clinical correlation. Electronically Signed: Bryce Hill DO at 23:33 EST Tel [phone], Service support , 10/23/20 21:23 Transvaginal Non- [US] Stat Laboratory Results 1210/23/20 10/23/20 21:55 21:55 22:40 WBC 12.4 H RBC 4.29 Hgb 13.4 Hct 39.5 MCV 92.1 MCH 31.2 MCHC 33.9 RDW Std Deviation 42.6 RDW Coeff of Benji 12.8 Plt Count 359 MPV 9.9 Immature Gran % (Auto) 0.300 Neut % (Auto) 73.2 H Lymph % (Auto) 17.9 L [place] % (Auto) 5.1 Eos % (Auto) 3.0 Baso % (Auto) 0.5 Absolute Neuts (auto) 9.1 H Absolute Lymphs (auto) 2.22 Nucleated RBC % 0 Sodium 137 Potassium 3.4 L Chloride 106 Carbon Dioxide 25.0 Anion Gap 6 BUN 11 Creatinine 0.75 Estim Creat Clear Calc 85.17 Est GFR (MDRD) Af Amer 114 Est GFR (MDRD) Non-Af 95 BUN/Creatinine Ratio 14.6 Glucose 96 Calcium 9.0 Total Bilirubin 0.20 AST 13 L ALT 25 Alkaline Phosphatase 80 Total Protein 7.8 Albumin 4.2 Globulin 3.6 Albumin/Globulin Ratio 1.2 Urine Color Yellow Urine Clarity Clear Urine pH 5.0 Ur Specific [place] 1.030 Urine Protein 30 H Urine Glucose (UA) Normal Urine Ketones 150 H Urine Occult Blood 10 H Urine Nitrite Negative Urine Bilirubin Negative Urine Urobilinogen 1 H Ur Leukocyte Esterase 25 H Urine RBC 0 SEEN Urine WBC 0-5 SEEN Ur Squamous Epith Cells 0-5 SEEN Calcium Oxalate Crystal RARE Urine Bacteria 0 SEEN Urine Mucus 2+ - Medical Decision Making Patient was given IV morphine and Zofran. Serum laboratory studies and urinalysis were obtained which show white blood cell count of 12.4. Urinalysis does not show evidence of infection. Given clinical concern for ovarian torsion she was sent for a pelvic ultrasound which was read as decreased vascularity of the right ovary. On reevaluation patient has had no improvement of pain with IV morphine. She was given IV Dilaudid. Given her clinical presentation and ultrasound findings this is most suggestive of an ovarian torsion. Patient was discussed with Dr. Ozzy Burns who agrees and will evaluate the patient here in the emergency department. ED Disposition - Plan for ED Patient: Disposition: Acute Care Hospital [facility] Diagnosis: Ovarian torsion Referrals: José Miguel Ngo MD [Primary Care Provider] -
[2020-10-23] MEDS: Ondansetron 4 MG/2 ML Vial IV (21:50)
[2020-10-23] MEDS: Morphine 4 MG/ML Syringe IV (21:50)
[2020-10-23 22:03] LABS: Absolute Lymphocyte Count 2.22 X10^3/uL (0.83-4.51); Absolute Neutrophil Count 9.1 X10^3/uL (2.0-7.7); Basophil# 0.06 X10^3/uL; Basophil% 0.5 % (0-1); Eosinophil# 0.37 X10^3/uL; Hematocrit 39.5 % (37-47); Hemoglobin 13.4 g/dL (12.0-15.0); Lymphocyte # 2.22 X10^3/ul (4.0); Lymphocyte % 17.9 % (19-41); Mean Corp Hgb Conc 33.9 g/dL (32-36); Mean Corpuscular Hgb 31.2 pg (27.0-32.0); Mean Corpuscular Volume 92.1 fL (81-99); Mean Platelet Vol. 9.9 fl (6.2-12.0); Monocyte# 0.63 X10^3/uL; Monocyte% 5.1 % (0-10); NRBC Flagged by Analyzer 0 % (0-5); Neutrophil # 9.05 X10^3/uL (2.7-7.7); Neutrophil % 73.2 % (47-70); Platelet Count 359 K/mm3 (150-450); RBC Distribution Width CV 12.8 % (11.6-14.6); RBC Distribution Width SD 42.6 fl (35.1-43.9); Red Blood Count 4.29 M/mm3 (4.2-5.4); White Blood Count 12.4 K/mm3 (4.4-11.0)
[2020-10-23 22:18] LABS: ALB/GLOB Ratio 1.2 RATIO (0.9-2.4); AST(SGOT) 13 U/L (15-37); Alanine Aminotransfer ALT/SGPT 25 U/L (13-56); Albumin, Serum 4.2 g/dL (3.2-5.0); Alkaline Phosphatase 80 U/L (45-117); Anion Gap 6 (5-15); BUN 11 mg/dL (7-18); BUN/Creat Ratio 14.6 RATIO (10-20); Chloride 106 mmol/L (98-107); Creatinine, Serum 0.75 mg/dL (0.55-1.02); EST Glomerular Filtration Rate 95 mL/min (>60); Est Glom Filt Rate - Afr Amer 114 mL/min (>60); Estimated Creatinine Clearance 85.17 ml/min; Globulin 3.6 g/dL (2.2-4.2); Glucose 96 mg/dL (74-106); Potassium 3.4 mmol/L (3.5-5.1); Protein, Total 7.8 g/dL (6.4-8.2); Sodium Level 137 mmol/L (136-145)
[2020-10-23 22:50] LABS: Bacteria 0 SEEN /hpf (None Seen); Red Blood Cells-Urine 0 SEEN /hpf (0-5)
[2020-10-23 22:54] LABS: Color, Urine Yellow (Yellow); Glucose, Dipstick Normal (Normal); Leukocyte Esterase-Dipstick 25 /ul (Negative); Nitrite-Dipstick Negative (Negative); Occult Blood-Urine 10 /ul (Negative); Protein-Dipstick 30 mg/dl (Negative); Urine Bilirubin Dipstick Negative (Negative); Urine Clarity Clear (Clear); Urine Urobilinogen 1 mg/dl (Normal)
[2020-10-23 22:55] LABS: Ketone-Dipstick 150 mg/dl (Negative)
[2020-10-23 23:04] LABS: Calcium Oxalate Crystals Ur RARE /hpf (<or=2+); Mucous, Urine 2+ /hpf (<or=2+); Squamous Epithelial Cells - UA 0-5 SEEN /hpf (5-10); White Blood Cells 0-5 SEEN /hpf (0-5)
[2020-10-23] MEDS: HYDROmorphone 1 MG/ML Syringe IV (23:48)
[2020-10-23 23:50] VITALS: BP 126/73; PULSE 101; RESP 18; TEMP 36.7; O2SAT 97
[2020-10-24] VITALS (9 sets, daily range): BP systolic 109–126; BP diastolic 54–76; PULSE 73–103; RESP 16–18; TEMP 36.4–36.8; O2SAT 95–98; BMI 29.4
--- NOTE | 2020-10-24 | OV_PTH ---
PATIENT: PAVITHRA CAMPBELL LOC: ED U#:[id number] AGE/SX: 30/F ROOM: RE10/23/[address]: Dr. Noe Brink MD : [id number] BED: DIS: 10/24/2020 SPEC #: [id number] RECD: 10/24/20 10:03 STATUS: CARLY KENA #: [id number] MACRINA: 10/24/20 00:[address]: Yanira Shelley DEPT: SURGICAL PATHOLOGY RECD BY: Jennifer Mathew ENTERED: 10/24/20 10:56 SP TYPE: OVARY OTHR DR: MD Dr. José Miguel Lock MD Tissues: Ovary, NOS Procedures: Surgery Specimen Level IV Comments: @ Ordering doctor for SUIV edited from to @ by RGOOD at 10/24/20 1515 @ Submitting doctor edited from to @ by RGOOD at 10/24/20 1515 HEADER OPERATION: Diagnostic laparoscopy right ovarian cystectomy, right oophorectomy PRE-OP DIAGNOSIS: Torsion of right ovary TISSUE SUBMITTED: Right ovary MICROSCOPIC DIAGNOSIS Right ovary, oophorectomy: Ovary with extensive congestion and hemorrhage, consistent with torsion. JESSICA:fabien 10/25/20 MICROSCOPIC DESCRIPTION Slides are reviewed. GROSS DESCRIPTION Received in fixative is one container labeled with the patient's name and designated right ovary. The specimen consists of a congested ovary in three pieces weighing 38 gm. The largest piece measures 6 x 4 x 3 cm and two smaller pieces measure in aggregate 3 x 1.5 x 1.5 cm. The outer surface is smooth. Sections reveal congested and hemorrhagic cut surfaces without any mass lesion. Division Operations Specialist sections are submitted in four cassettes. / JESSICA:fabien 10/24/20 TC:5 CPT: 18232
[2020-10-24 00:12] LABS: Internal QC Validated? YES +Cl - CLEAR BKGD; Pregnancy, Urine Negative Negative
--- NOTE | 2020-10-24 00:26 | HP.PCM_ITS ---
Problem List (1) Ovarian torsion Status: Inactive History of Present Illness Date of Admission: 10/24/20 The patient is a 30 year old F presents with right ovarian torsion. She had increasing pelvic pain tonight and was evaluated and ultrasound showed decreased vascularity to the right ovary. she has had intermittent cysts in the past on this side. Past Medical History Medical History: Medical History (Last Reviewed 05/10/20 @ 06:46 by Kofi Nascimento) Ectopic O00.90 s/p right tube removal History of PCOS Z87.42 History of ovarian cyst Z87.42 Severe headache R51 Chronic neck and back pain M54.2, M54.9, G89.29 Allergies Sulfa (Sulfonamide Antibiotics) Allergy (Verified 10/23/20 20:51) Unknown Home Medications: Ambulatory Orders Medication Instructions Recorded cyclobenzaprine 10 mg tablet 10 mg PO TID PRN #30 tab 10/23/20 ondansetron 4 mg disintegrating 4 mg PO Q8H PRN PRN #30 tab 10/23/20 tablet Naproxen [Naprosyn] 250 - 500 mg PO Q8H PRN PRN #30 tab 10/24/20 Oxycodone HCl/Acetaminophen 1 - 2 tab PO Q6H PRN PRN 7 Days 10/24/20 [Percocet 5-325] #15 tab Surgical History: Surgical History (Last Updated 10/25/20 @ 11:57 by Blank Smith) History of LAVH Z90.710 LAVH BS 12/06/2019 History of laparoscopy Z98.890 two- one to remove endometriosis and adhesions in past History of right oophorectomy Z90.721 torsion [place] teeth extracted K08.409 Smoking Status: Current every day smoker Review of Systems Constitutional: Denies: Fever, Malaise Eyes: Denies: Blurred vision, Vision Change HEENT: Denies: Head Aches, Visual Changes Cardiovascular: Denies: Chest Pain, Palpitations Respiratory: Denies: Cough, Shortness of Breath, Wheezing Gastrointestinal: Reports: Abdominal Pain, Diarrhea, Nausea, Vomiting Genitourinary: Denies: Dysuria, Hematuria Gynecological: Denies: Vaginal bleeding, Vaginal discharge Musculoskeletal: Denies: Joint Pain, Muscle pain Skin: Denies: Lesions, Rash Neurological: Denies: Blurred vision, Focal weakness, Headaches Psychiatric: Denies: Anxiety, Depression Endocrine: Denies: Heat/ Cold Intolerance Hematologic/ Lymphatic: Denies: Easy Bruising, Easy Bleeding VTE Information - Inpt Only VTE Present on Admission: No - Physical Exam Vitals/I&O's: Vital Signs Temp Pulse Resp BP Pulse Ox 98.1 F 73 16 121/65 H 98 10/24/20 00:18 10/24/20 00:18 10/24/20 00:18 10/24/20 00:18 10/24/20 00:18 Oxygen Delivery Method Room Air Weight: 161 lb Body Mass Index (BMI) 29.4 Finger Stick Blood Glucose 81 General: Alert, Oriented x3 HEENT: Atraumatic, Normocephalic Oral: Moist Mucosa Neck: Trachea Midline, Thyroid Normal Size and Texture Lungs: Clear to auscultation, Normal air movement Cardiovascular: Regular rate, Regular Rhythm, No murmurs Abdomen: Soft, Tender - RLQ no rebound or guarding Extremities: No edema Skin: No rashes Musculoskeletal: No Tenderness to Palpation of Joints or Extremities Laboratory Results 10/23/20 21:55: WBC 12.4 H, RBC 4.29, Hgb 13.4, Hct 39.5, MCV 92.1, MCH 31.2, MCHC 33.9, RDW Std Deviation 42.6, RDW Coeff of Benji 12.8, Plt Count 359, MPV 9.9, Immature Gran % (Auto) 0.300, Neut % (Auto) 73.2 H, Lymph % (Auto) 17.9 L, [place] % (Auto) 5.1, Eos % (Auto) 3.0, Baso % (Auto) 0.5, Absolute Neuts (auto) 9.1 H, Absolute Lymphs (auto) 2.22, Nucleated RBC % 0 10/23/20 21:55: Sodium 137, Potassium 3.4 L, Chloride 106, Carbon Dioxide 25.0, Anion Gap 6, BUN 11, Creatinine 0.75, Estim Creat Clear Calc 85.17, Est GFR ( MDRD) Af Amer 114, Est GFR (MDRD) Non-Af 95, BUN/Creatinine Ratio 14.6, Glucose 96, Calcium 9.0, Total Bilirubin 0.20, AST 13 L, ALT 25, Alkaline Phosphatase 80, Total Protein 7.8, Albumin 4.2, Globulin 3.6, Albumin/Globulin Ratio 1.2 10/23/20 22:40: Urine Color Yellow, Urine Clarity Clear, Urine pH 5.0, Ur Specific [place] 1.030, Urine Protein 30 H, Urine Glucose (UA) Normal, Urine Ketones 150 H, Urine Occult Blood 10 H, Urine Nitrite Negative, Urine Bilirubin Negative, Urine Urobilinogen 1 H, Ur Leukocyte Esterase 25 H, Urine RBC 0 SEEN, Urine WBC 0-5 SEEN, Ur Squamous Epith Cells 0-5 SEEN, Calcium Oxalate Crystal R ARE, Urine Bacteria 0 SEEN, Urine Mucus 2+ 10/23/20 22:45: Urine Test Negative Assessment/Plan All Active Problems (Last Reviewed 05/10/20 @ 06:46 by Kofi Nascimento) Family history of von Willebrand disease (Acute) Endometriosis (Acute) PCOS (polycystic ovarian syndrome) (Acute) Acute maxillary sinusitis (Resolved) Coronary artery disease (Resolved) Hypercholesterolemia (Resolved) Hypertension (Resolved) Severe obesity (Resolved) Unstable angina (Resolved) 30 yo with right ovarian torsion plan laparoscopic right ovarian cystectomy possible oophorectomy. After discussing the patient's diagnosis and treatment plan options, patient wishes to proceed with surgical management. I have discussed with the patient the risks, benefits, and alternatives of the procedure which include but are not limited to risks of anesthesia, bleeding, infection, possible damage to bowel, bladder, or surrounding vasculature which could lead to additional surgery to evaluate any complications. Patient agrees to procedure and wishes to proceed. covid test sent stat.
--- NOTE | 2020-10-24 00:30 | OP.PCM_ITS ---
Problem List (1) Ovarian torsion Status: Acute Report of Operation Date of Procedure: 10/24/20 Pre-Operative Diagnosis: ovarian torsion Post-Operative Diagnosis: same Surgery/Procedure Performed:: laparoscopic right oophorectomy Description of Surgical Findings:: torsed right ovary ct scan special procedures technologist: Cassia Britt Type of Anesthesia:: General Special Medications: none Specimen's removed: ovary Drains: none Estimated Blood Loss (mL): 25 Fluids Replaced: crystalloid Description of Procedure: Patient was taken in the operating room and was placed under general anesthesia was prepped and draped in normal sterile fashion in the dorsal lithotomy position. Bladder was drained of clear urine and SCDs were on preoperatively. Uterus was sounded and a uterine manipulator was placed after dilating. Attention was then paid to the abdominal portion of the procedure and the umbilicus was elevated with towel clamps and injected with Marcaine and after a 5 mm incision was made and the Veress needle was entered into the abdomen confirmed to be intra-abdominal with a low opening pressure of less than 5 mmHg. Abdomen was insufflated with CO2 gas and a 5 mm optical trocar was placed under direct visualization. A left lower quadrant 12 mm port and a 5 mm port the right lower quadrant were placed under direct visualization. Right ovary was untwisted and due to the enlarged size and clot present in the vein the decision for removal was made. Was transected across the IP ligament without complication placed in the bag and removed through the left lower quadrant port. Fascia was closed using the Godfrey-Zachery with 3 interrupted sutures of 0 Vicryl in the left lower quadrant through the fascia. All instruments were removed from the abdomen after some left sidewall adhesions were taken down over the left adnexa. Left adnexa was noted to be multicystic but have good blood flow. Liver and upper abdomen were visualized notably within normal limits and no other gross abnormalities were seen in the abdomen. All instruments removed from the abdomen after gas was desufflated. Port sites were closed with 3-0 Monocryl Steri's and op sites were applied. All instruments removed from the vagina and patient was awoken and taken recovery in stable condition. Grafts/Implants Used: none - Complications none - Admit VTE Documentation VTE Present on Admission: No VTE Mechan Device Prophylaxis: SCD's Multi Select Codes - Urinary/Genital Urinary/Genital CPT Codes: 74862 Laproscopic BS/O
--- NOTE | 2020-10-24 00:32 | DCINST_ITS ---
Discharge Diet: No Restrictions - Increase fluid intake for the next 48 hours. Discharge Activity: Return to Normal Activity, May Drive - when you are no longer taking narcotic pain medications., May Shower, May Take a Tub Bath - in 7 days Additional Activity Instructions:: Ambulate often the next week after surgery. Nothing in the vagina for 5 days. Call your doctor if your incision/area has: Continuous Slow Oozing, Sudden Increased Bleeding, Increased Pain/ Swelling, Increased Redness, Foul Smelling Discharge Call your doctor if you observe: Fever of 101 or Higher Allergies/Adverse Reactions: Allergies Sulfa (Sulfonamide Antibiotics) Allergy (Verified 10/23/20 20:51) Unknown Medications to take at Discharge cyclobenzaprine 10 mg tablet 10 mg PO TID PRN #30 tab 10/23/20 ondansetron 4 mg disintegrating tablet 4 mg PO Q8H PRN PRN #30 tab 10/23/20 Primary Care Physician: José Miguel Ngo MD [Primary Care Provider] - Test Results: Test results from this visit will be discussed in further detail at your follow- up appointment, if applicable. Please Follow Up With: Yanira Shelley MD - [phone]
[2020-10-24] MEDS: Bupivacaine 0.25% 30 ML Vial (00:39)
--- NOTE | 2020-10-24 00:52 | ED.RN ---
called report to operating room. pt ready for surgery.
== END 2020-10-24 03:05 | disposition home or self-care (01) ==
PROVIDERS: Anesthesiology; Obstetrics & Gynecology; Emergency Provider Emergency Medicine; PCP Family Medicine
PROC: (CPT 49320; principal; 2020-10-24)
DX: N83.511 Torsion of right ovary and ovarian pedicle (principal); F17.200 Nicotine dependence, unspecified, uncomplicated
CPT/HCPCS: 00840; 58661; 76830; 80053; 81001; 81025; 85025; 87426; 88305; 93976; 96374; 96375; 99284; J7030; A4216; J2405

== ENCOUNTER 2021-01-10 05:32 | Emergency (ER) | payer OTHER, SELFPAY ==
[2020-11-09 09:50] VITALS: BMI 29.9
[2021-01-10 05:34] VITALS: BP 158/77; PULSE 117; RESP 19; TEMP 36.8; O2SAT 100; BMI 30.4
--- NOTE | 2021-01-10 05:37 | CT_ITS ---
STUDY: CT ABDOMEN AND PELVIS WITHOUT CONTRAST REASON FOR EXAM: Female, 30 years old patient with abdominal pain. RADIATION DOSAGE (If Supplied By Facility): CTDIvol = ( 9.82 ) mGy, DLP = ( 451.21 ) mGycm TECHNIQUE: Transaxial images were obtained from the dome of the diaphragm to the symphysis pubis without oral contrast, and without intravenous contrast. Sagittal and coronal images were reconstructed. Individualized dose optimization techniques were used for this CT. COMPARISON: CT of the abdomen and pelvis dated 09/29/2020. FINDINGS: The visualized lung bases are unremarkable. The visualized portions of the heart are within normal limits. Normal liver. Normal gallbladder and extrahepatic biliary system. Normal spleen. Normal pancreas. Normal bilateral adrenal glands. Normal right kidney. Normal left kidney. Normal visualized stomach. There is no obvious dilated bowel, ascites or pneumoperitoneum. Small bowel has a grossly normal appearance. Stool is visible throughout the colon with scattered diverticula. The appendix is visualized and appears normal. Normal abdominal aorta. Normal inferior vena cava. Normal retroperitoneum. Urinary bladder is not distended. There is a large cystic mass within the pelvis possibly arising from the left ovary measuring approximately 6.0 x 5.0 x 4.9 cm in size. Normal abdominal wall. Normal osseous structures. CT/Abdomen/Pelvis without Cont IMPRESSION: Large left-sided ovarian cystic mass. This was not visible on the previous CT. Electronically Signed: Regina Montes De Oca MD at 6:44 EST , Service support ,
--- NOTE | 2021-01-10 05:40 | ED.DCSUM_ITS ---
- ER Visit Summary Date of Service: 01/10/21 Chief Complaint: Abdominal pain History of Present Illness: The patient is a 30 F who presents with abdominal pain. The pain started yesterday and gradually got worse throughout the night. She describes sharp pain in the left side of her abdomen. Nothing makes it better or worse. She has had associated nausea without vomiting. She denies diarrhea or constipation. No dysuria or hematuria. She denies any vaginal bleeding or discharge. The patient has had a previous hysterectomy. In October, there was concern for ovarian torsion so the patient had a right oophorectomy performed by PROGRAMS DIRECTOR, Dr. Shelley. Patient has had no fevers currently. She took an old pain medication from the previous surgery but it did not help with her pain. Physical Examination: Vital signs reviewed. HEENT exam unremarkable. Heart is tachycardic and regular rhythm without murmurs. Lungs are clear to auscultation. Abdomen is soft with tenderness on the left side of the abdomen in the upper and lower quadrants. There is no guarding or rebound tenderness. There is no pelvic tenderness. Extremities reveal no edema. Skin exam normal. Neurologic exam normal. Test Results: White blood cell count was 12.0, hemoglobin is 14. Chemistries are unremarkable. AST is 14. Urinalysis reveals no evidence of infection. CAT scan of the abdomen and pelvis shows a left ovarian cystic mass. This is not seen in the previous CAT scan. Emergency Department Course and Treatment: Patient was given morphine and Zofran. Due to this new cystic mass I do feel the patient requires an ultrasound. Patient will be sent to the oncoming physician for reevaluation after ultrasound Treatment Plan: [] Disposition: Pending Impression: Abdominal pain, left ovarian cystic mass This note was generated with Voicesation software. It may contain incorrect words, spelling, and punctuation that were not noted in review of the chart prior to signing ED Disposition - Plan for ED Patient: Referrals: José Miguel Ngo MD [Primary Care Provider] -
[2021-01-10 05:48] LABS: Absolute Lymphocyte Count 3.96 X10^3/uL (0.83-4.51); Absolute Neutrophil Count 6.4 X10^3/uL (2.0-7.7); Basophil# 0.07 X10^3/uL; Basophil% 0.6 % (0-1); Eosinophil# 0.69 X10^3/uL; Eosinophils% 5.7 % (0-5); Hematocrit 41.8 % (37-47); Lymphocyte # 3.96 X10^3/ul (4.0); Lymphocyte % 32.9 % (19-41); Mean Corp Hgb Conc 33.5 g/dL (32-36); Mean Corpuscular Hgb 31.1 pg (27.0-32.0); Mean Corpuscular Volume 92.9 fL (81-99); Mean Platelet Vol. 9.9 fl (6.2-12.0); Monocyte# 0.85 X10^3/uL; Monocyte% 7.1 % (0-10); NRBC Flagged by Analyzer 0 % (0-5); Neutrophil # 6.43 X10^3/uL (2.7-7.7); Neutrophil % 53.4 % (47-70); Platelet Count 346 K/mm3 (150-450); RBC Distribution Width CV 12.8 % (11.6-14.6); RBC Distribution Width SD 43.6 fl (35.1-43.9)
[2021-01-10] MEDS: 0.9% Normal Saline 1,000 ML 1000 ML IV (05:50)
[2021-01-10] MEDS: Ondansetron 4 MG/2 ML Vial IV (05:51)
[2021-01-10] MEDS: Morphine 4 MG/ML Syringe IV (05:51)
[2021-01-10 05:59] LABS: Color, Urine Yellow (Yellow); Glucose, Dipstick Normal (Normal); Ketone-Dipstick 5 mg/dl (Negative); Leukocyte Esterase-Dipstick 25 /ul (Negative); Nitrite-Dipstick Negative (Negative); Occult Blood-Urine 25 /ul (Negative); Protein-Dipstick 15 mg/dl (Negative); Specific Gravity, Urine 1.025 (1.002-1.030); Urine Bilirubin Dipstick Negative (Negative); Urine Clarity Clear (Clear); Urine Urobilinogen Normal (Normal)
[2021-01-10 06:04] LABS: AST(SGOT) 14 U/L (15-37); Alanine Aminotransfer ALT/SGPT 23 U/L (13-56); Albumin, Serum 3.8 g/dL (3.2-5.0); Alkaline Phosphatase 74 U/L (45-117); Anion Gap 6 (5-15); BUN 7 mg/dL (7-18); BUN/Creat Ratio 9.9 RATIO (10-20); Calcium,Total 8.9 mg/dL (8.5-10.1); Chloride 107 mmol/L (98-107); EST Glomerular Filtration Rate 102 mL/min (>60); Est Glom Filt Rate - Afr Amer 123 mL/min (>60); Estimated Creatinine Clearance 91.25 ml/min; Globulin 3.6 g/dL (2.2-4.2); Glucose 101 mg/dL (74-106); Lipase 64 U/L (73-393); Potassium 3.6 mmol/L (3.5-5.1); Protein, Total 7.4 g/dL (6.4-8.2); Sodium Level 139 mmol/L (136-145)
[2021-01-10 06:07] LABS: Bacteria 2+ /hpf (None Seen)
[2021-01-10 06:08] LABS: Squamous Epithelial Cells - UA 5-10 SEEN /hpf (5-10)
[2021-01-10 06:09] LABS: Mucous, Urine 2+ /hpf (<or=2+); Red Blood Cells-Urine 0-5 SEEN /hpf (0-5)
[2021-01-10 06:10] LABS: White Blood Cells 0-5 SEEN /hpf (0-5)
[2021-01-10 06:33] VITALS: BP 114/62; PULSE 70; RESP 18; O2SAT 100
--- NOTE | 2021-01-10 06:44 | US_ITS ---
STUDY: ULTRASOUND TRANSVAGINAL CLINICAL: Female, 30 years old patient with left ovarian cystic mass TECHNIQUE: Transvaginal COMPARISON: CT of abdomen and pelvis dated 01/10/2021. FINDINGS: Patient has had a hysterectomy. Patient has had a right-sided salpingo-oophorectomy. Normal left ovary, measuring 5.5 x 4.6 x 6.5 cm. There are multiple follicles with a dominant cyst. The left-sided cyst appears simple and measures 4.3 x 3.2 x 4.1 cm There is small amount of free fluid in the pelvis. Polycystic ovary disease: No. US/Transvaginal Non- IMPRESSION: Large left-sided ovarian cyst. Electronically Signed: Regina Montes De Oca MD at 7:59 EST , Service support ,
[2021-01-10 08:11] VITALS: BP 106/71; PULSE 82; RESP 16; O2SAT 95
== END 2021-01-10 08:12 | disposition home or self-care (01) ==
PROVIDERS: Emergency Provider Emergency Medicine; PCP Family Medicine
DX: R10.9 Unspecified abdominal pain (principal); N83.202 Unspecified ovarian cyst, left side; F17.200 Nicotine dependence, unspecified, uncomplicated; Z90.710 Acquired absence of both cervix and uterus
CPT/HCPCS: 74176; 76830; 80048; 80076; 81001; 83690; 85025; 96361; 96374; 96375; 99283; J7030; J2405

== ENCOUNTER 2021-01-30 13:13 | Day surgery (SDC) | payer OTHER, SELFPAY ==
[2021-01-28 13:31] VITALS: BMI 30.2
[2021-01-30] VITALS (8 sets, daily range): BP systolic 99–127; BP diastolic 55–75; PULSE 72–100; RESP 16–20; TEMP 36.7–37.4; O2SAT 94–99; BMI 29.8
[2021-01-30 13:48] LABS: Hematocrit 40.3 % (37-47); Hemoglobin 13.4 g/dL (12.0-15.0); Mean Corp Hgb Conc 33.3 g/dL (32-36); Mean Corpuscular Hgb 30.5 pg (27.0-32.0); Mean Corpuscular Volume 91.8 fL (81-99); Mean Platelet Vol. 9.6 fl (6.2-12.0); Platelet Count 325 K/mm3 (150-450); RBC Distribution Width CV 12.7 % (11.6-14.6); Red Blood Count 4.39 M/mm3 (4.2-5.4); White Blood Count 11.2 K/mm3 (4.4-11.0)
[2021-01-30] MEDS: Lactated Ringers 1,000 ML 125 ML IV ×2 (13:52→16:10)
--- NOTE | 2021-01-30 14:04 | PCM.HPOB.BLA ---
- Problem List (1) Ovarian cyst Status: Acute History and Physical Date of Admission: 01/30/21 Intake Vital Signs 01/28/21 Height 5 ft 2 in 01/28/21 Weight: 165 lb 01/28/21 BMI 30.2 01/28/21 BP 120/86 H Intake Visit Reasons: Ovarian pain Certified Nutritionist Required: No Is patient in pain?: Yes Pain scale (1-10): 5 Allergies Sulfa (Sulfonamide Antibiotics) Allergy (Verified 01/28/21 13:31) Unknown Medications NK 01/28/21 [History Confirmed 01/28/21] Post menopausal: No Patient : No : No PFSH Medical History Ectopic (Acute) History of PCOS (Acute) History of ovarian cyst (Acute) Severe headache (Acute) Chronic neck and back pain (Chronic) Surgical History History of LAVH (Acute) History of laparoscopy (Acute) History of right oophorectomy (Acute) [place] teeth extracted (Acute) Family History Grandfather Diabetes Heart disease Social History (Updated 01/28/21 @ 17:[address] 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 She has a known ovarian cyst and has continued to experience pain. She has a history of a hysterectomy as well as a prior torsion requiring removal of her ovary. Reports pain significantly worse when active. Pain radiates down her leg and becomes sharp at times. Unable to take OCPs due to migraines. Tried IUD and depo provera in the past. Had significant weight gain in the past without benefit. Had IUD in place and had daily spotting. At this time, pain is dull and achy, but does report the pain has become much more severe at times. Reports the pain is so severe that it limits her ability to have intercourse. Reports pain has not becomes as severe as it was when she had an ovarian torsion. Pregancy History 2 Elective abortions Hx Para 1 Spontaneous abortions Hx # Term Pregnancies Ectopic pregnancies Hx # Pregnancies Multiple births # of living children Past Pregnancies Del. Date Name GA/Weeks Outcome Route Bth Weight [facility] 2007 Cristi [facility] live - full term 6lbs 11oz Male [place] ROS Const Constitutional: Denies chills, fatigue or fever(s) Eyes Eyes: Reports system reviewed and no additional complaints, except as docu ENT ENT: Reports system reviewed and no additional complaints, except as docu Cardio Card: Reports system reviewed and no additional complaints, except as docu; denies chest pain, leg swelling or rapid, pounding, or irregular heartbeat Resp Resp: Reports system reviewed and no additional complaints, except as docu; denies dyspnea GI GI: Reports abdominal pain; denies bloating, constipation, nausea or vomiting : Reports side pain, pelvic pain and sexual problems; denies difficulty urinating, painful urination, blood in urine, urinary urgency, vaginal discharge, vaginal dryness, vaginal odor or vaginal itching Musc Musc: Reports system reviewed and no additional complaints, except as docu Skin Skin/Breast: Reports system reviewed and no additional complaints, except as docu Neuro Neuro: Reports system reviewed and no additional complaints, except as docu Psych Psych: Reports system reviewed and no additional complaints, except as docu Endo Endo: Reports system reviewed and no additional complaints, except as docu Exam Const General: cooperative, healthy appearing, comfortable, well developed, well groomed Orientation: alert, awake, oriented x3 Neck Neck: normal visual inspection, full ROM Resp Effort & Inspection: normal respiratory effort, able to speak in complete sentences, symmetric chest movement Cardio Rate: regular rate Skin General: no rashes or lesions noted, elasticity normal, turgor normal Lesions: no lesions Rashes: no rashes Neuro General: alert, awake, oriented x3 Cranial Nerves: CN's II-XI intact bilaterally, PERRL, EOM intact bilaterally Cognition: normal cognition Speech: speech normal Gait: normal gait Extrem General: normal to inspection, full ROM, no pedal edema Psych Appearance: grossly normal Mental Status: mental status grossly normal Mood: congruent mood Affect: normal affect Speech and Movement: speech and movement normal Attitude: cooperative Thought Process: normal Thought Content: normal Assessment & Plan 1. Left ovarian cyst N83.202 Plan Patient presents for discussion of pelvic pain. She has a history of multiple ovarian cyst in the past. She was found to have a left ovarian cyst on 01/10 measuring 5.5 x 4.6 x 6.5 cm in diameter. Patient has been having intermittent pelvic pain over the last few weeks. Patient reports that pain is greatly limiting her ability to function in her normal life. Reports that she has had multiple ovarian cysts in the past and that this feels like when she has a cyst, but is taking much longer for pain to resolve. Patient has failed multiple therapies in the past to attempt to suppress ovarian cyst formation including OCPs, Depo-Provera, and IUD. Patient is status post hysterectomy and right salpingo-oophorectomy. Recent pink oophorectomy was done for ovarian torsion and patient reports that she is becoming very concerned that she is going to experience another torsion given the severity of her intermittent pain. Discussed with patient her goals of therapy. She wishes to no longer have to return to the office frequently when she develops the cyst. She has had adverse effects from hormonal suppression of ovarian cyst formation in the past. Patient desires definitive surgical intervention with salpingo-oophorectomy. She understands that this will induce surgical menopause. Discussed that at her age, I would recommend initiation of low-dose hormone replacement therapy to decrease the chances of long-term adverse events following surgery. The nature of the procedure was discussed with the patient. Risks, benefits, indications, and alternatives to the procedure were discussed with the patient including bleeding, infection, and visceral or vascular injury. Agreeable to blood products if medically necessary. Discussed possibility of infection inside abdomen or at incision sites which could require outpatient or inpatient antibiotics. Discussed the possibility of injury to uterus, tubes, ovaries, bowel, and bladder. Aware that this could require intra-op consult to general surgery or urology. Also aware of the possibility of prolonged hospitalization or reoperation. Discussed possibility of need to convert to open to procedure. All questions were answered. Patient voices understanding and agrees to proceed. Given the severity of the patient's intermittent pain, patient was scheduled for laparoscopic left salpingo-oophorectomy to be done later this week. UPDATE- I have seen the patient and performed any clinically relevant updates to the history and physical exam. Pia Jo MD
--- NOTE | 2021-01-30 15:00 | OV_PTH ---
PATIENT: PAVITHRA CAMPBELL LOC: [facility] [place] U#:[id number] AGE/SX: 30/F ROOM: RE01/30/[address]: Dr. Pia Jo MD : 1990 BED: DIS: 01/30/2021 SPEC #: [id number] RECD: 01/31/21 07:18 STATUS: CARLY RESong #: [id number] MACRINA: 01/30/21 15:[address]: Pia Jo DEPT: SURGICAL PATHOLOGY RECD BY: Jennifer Mathew ENTERED: 01/31/21 09:29 SP TYPE: OVARY OTHR DR: Dr. José Miguel Ngo MD Tissues: Ovary, NOS Procedures: Surgery Specimen Level IV HEADER OPERATION: Laparoscopic oophorectomy PRE-OP DIAGNOSIS: Left ovarian cyst TISSUE SUBMITTED: Left ovary MICROSCOPIC DIAGNOSIS Left ovary, oophorectomy: Follicular and hemorrhagic corpus luteal cysts. AM:fabien 02/01/2021 MICROSCOPIC DESCRIPTION Slides are reviewed. GROSS DESCRIPTION Received in fixative is one container labeled with the patient's name and designated left ovary. The specimen consists of a previously, partially opened ovary measuring 4.5 x 3 x 2.5 cm. Also present in the container are multiple pieces of detached tissue measuring in aggregate 3 x 3 x 0.5 cm. The entire specimen weighs 21 gm. The external surface is smooth. Sections of the ovary reveal multiple cysts filled with clear to hemorrhagic fluid. The largest cyst measures 0.7 cm in greatest dimension and hemorrhagic corpus luteum is also noted measuring 2.5 cm in greatest dimension. [employer] sections are submitted in four cassettes as follows: 1-3 - ovary, 4 - detached pieces of tissue most likely detached ovarian tissue. / SJ:fabien 01/31/21 TC:5 CPT: 48265
[2021-01-30] MEDS: Bupivacaine 0.25% 30 ML Vial (15:55)
--- NOTE | 2021-01-30 16:24 | PCM.OPRPT ---
Problem List (1) Ovarian cyst Status: Acute Report of Operation Date of Procedure: 01/30/21 Pre-Operative Diagnosis: Large left ovarian cyst, history of hysterectomy Post-Operative Diagnosis: Same Surgery/Procedure Performed:: Laparoscopic left oophorectomy Description of Surgical Findings:: Large left ovarian cyst that is extremely mobile. Uterus, fallopian tubes, and right ovary surgically absent. 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 The umbilicus was grasped with towel clamps. 10cc of 0.25% marcaine was used to anesthetize the umbilicus. A 5mm incision was made at the base of the umbilicus. A veress needle was inserted without difficulty and intra-abdominal placement was confirmed using the water-drop test. The abdomen was insufflated to 15 mmHg and the veress needle was removed. A 5mm optiview trochar was then placed under direct visualization. Initial survey of the abdominal cavity revealed no evidence of trauma. The above findings were noted. Additional 5mm ports were placed in the right and left lower quadrants and the port and the umbilical incision was replaced with a 12 mm port. The left ovary was grasped and elevated. The LigaSure device was used to cauterize and transect the infundibulopelvic ligament until the ovary was amputated. The area was inspected and good hemostasis was noted. A 10 mm bag was then introduced through the umbilical incision and the ovary was placed in the bag. The specimen was removed without difficulty. The procedure was deemed complete. All instruments were removed from the abdominal cavity. A [id number] was performed of 0 Vicryl at the umbilical incision to close the fascial incision. The port sites were closed in a simple interrupted fashion using 3-0 monocryl and sterile dressings were placed. The patient was awakened from anesthesia and taken to the recovery room in stable condition. - Complications None apparent - Admit VTE Documentation VTE Present on Admission: No VTE Mechan Device Prophylaxis: SCD's VTE Pharm Prophylaxis ordered?: No Multi Select Codes - Urinary/Genital Urinary/Genital CPT Codes: 24061 Laproscopic BS/O - Left oophorectomy
--- NOTE | 2021-01-30 16:30 | DCINST_ITS ---
Discharge Diet: No Restrictions, - - Increase fluid intake for 48 hours. Discharge Activity: Return to Normal Activity, May Drive - when you are no longer taking narcotic pain medications., May Shower, May Take a Tub Bath - in 7 days., - - Ambulate often the next week after surgery. Additional Activity Instructions:: Nothing in the vagina for the next 5 days. Call your doctor if your incision/area has: Continuous Slow Oozing, Sudden Increased Bleeding, Increased Pain/ Swelling, Increased Redness, Foul Smelling Discharge, Swelling at the incision site Call your doctor if you observe: Fever of 101 or Higher Allergies/Adverse Reactions: Allergies Sulfa (Sulfonamide Antibiotics) Allergy (Verified 01/30/21 13:47) Unknown Medications to take at Discharge NK 01/28/21 Primary Care Physician: José Miguel Ngo MD [Primary Care Provider] - Test Results: Test results from this visit will be discussed in further detail at your follow- up appointment, if applicable.
== END 2021-01-30 18:27 | disposition home or self-care (01) ==
LOC: SDC 13:13 → AC 13:14
PROVIDERS: PCP Family Medicine; Referring Provider Obstetrics & Gynecology; Visit Provider Obstetrics & Gynecology
PROC: (CPT 58720; principal; 2021-01-30 14:45)
DX: N83.02 Follicular cyst of left ovary (principal); N83.12 Corpus luteum cyst of left ovary; F17.200 Nicotine dependence, unspecified, uncomplicated; Z20.822 Contact with and (suspected) exposure to COVID-19
CPT/HCPCS: 00840; 58661; 85027; 86850; 86900; 86901; 87426; 88305; C9803; J7120; J2405

== ENCOUNTER 2022-01-04 05:09 | Emergency (ER) | payer OTHER, SELFPAY ==
[2022-01-04 05:10] VITALS: BP 154/86; PULSE 104; RESP 17; TEMP 36.4; O2SAT 100; BMI 31.1
--- NOTE | 2022-01-04 05:53 | EDS_ITS ---
HPI History of Present Illness Chief Complaint: Back Informant: patient Onset/Context/Timing Onset: Hours (2) Context: Sudden Onset (when getting out of bed) Timing: Continuous Quality: Aching Location: Thoracic (left rhomboid area between my shoulder blade and my spine) Current Severity: Moderate Maximum Severity: Moderate Worsened by: improves with Movement and - (deep inspiration) Relieved by: Remaining Still Associated Symptoms Associated Symptoms: Negative for Numbness, Tingling, Abdominal Pain and Dysuria Narrative Narrative: Sudden pain this morning in her left upper back when she got out of bed. No dyspnea but it hurts to breathe. No pains into her chest or her extremities, no neurologic symptoms, no fall or direct injury. She took ibuprofen prior to coming here, it did not make a major difference yet. [facility] Medical History (Updated 01/04/22 @ 06:[address] Atilio Hall MD) Chronic neck and back pain Ectopic History of ovarian cyst History of PCOS Severe headache Home Medications estradiol 1 mg PO DAILY #30 tablet 01/30/21 [Rx Last Taken Unknown] tramadol 50 mg PO Q4H PRN PRN 2 Days #12 tab 01/04/22 [Rx Last Taken Unknown] Allergy/AdvReac Type Severity Reaction Status Date / Time clindamycin Allergy Rash Verified 01/04/22 05:17 Sulfa (Sulfonamide Allergy Unknown Verified 01/04/22 05:17 Antibiotics) Family History Grandfather Diabetes Heart disease Surgical History History of laparoscopy History of [facility] History of right oophorectomy [place] teeth extracted Social History Smoking Status: Current every day smoker tobacco type: cigarettes alcohol intake: current details: social substance use type: does not use caffeine: Yes what type of physical activity do you participate in: none seatbelt use: always do you feel safe at home: Yes 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 ROS ROS ED Constitutional Constitutional ED: Denies chills or fever(s) Cardiovascular Cardiovascular: Denies chest pain, dyspnea, orthopnea, palpitations or pedal edema Respiratory/Chest Respiratory/Chest: Denies cough, dyspnea or orthopnea Gastrointestinal Gastrointestinal: Denies abdominal pain, constipation, fecal incontinence, nausea or vomiting Genitourinary Genitourinary ED: Reports other Details: no urinary retention ; Denies abdominal discomfort or urinary incontinence Musculoskeletal Musculoskeletal: Reports as per HPI and back pain; Denies neck pain Integumentary Denies rash or wounds Neurologic Neurologic: Denies headache(s), paresthesias or weakness EXAM Physical Exam Const Vital Signs: 01/04/22 05:10 Temperature 97.6 F L Temperature Source Temporal Pulse Rate 104 H Respiratory Rate 17 Blood Pressure 154/86 H Blood Pressure Mean 108 Pulse Ox 100 Oxygen Delivery Method Room Air Positive well nourished and well developed General Appearance ED: well developed and NAD HEENT Negative for trauma or tenderness Eyes PERRL and EOMs intact bilaterally Neck full ROM and supple Resp normal respiratory effort, normal air movement and no retractions Cardio regular rate, regular rhythm, S1 normal heart sound, S2 normal heart sound and no murmurs Rate: Negative for tachycardic GI normal to inspection, nondistended, normoactive bowel sounds, soft to palpation and non-tender Back/Spine normal to inspection Thoracic Spine / Upper Back: paraspinal muscle tenderness left (In rhomboids area between the inferior left scapula and spine without bony scapular or spinal tenderness) Lumbar Spine / Lower Back: normal to inspection and lumbar ROM normal Extremity normal to inspection, full ROM and no pedal edema Neuro oriented x3, no sensory deficits noted and gait normal Sensorium / Orientation: alert Motor Exam: strength 5/5 throughout Psych mental status grossly normal and thought process normal Skin no rashes or lesions noted and no wounds MDM MDM MDM Narrative Medical decision making narrative: Performed some x-rays of the patient's left hemithorax/rib cage, they are unremarkable. I suspect the patient has a subluxed rib or some other subtle cause for musculoskeletal rib pain in the posterior left hemithorax. She states she is having trouble finding a comfortable position. She was amenable to tramadol, she already took ibuprofen I will prescribe her some tramadol and I advised her following up with either chiropractic or her PCP for physical therapy referral, or if her PCP is an osteopathic physician they might be able to do some manipulation for her to help with this. She is amenable to that plan. Radiography Diagnostic Testing: Clinical Impression(s) from Imaging Studies Ribs w/Chest X-Ray 01/04/22 06:00 IMPRESSION: RIBS: Normal x-ray examination of the ribs. CHEST: Normal x-ray examination of the chest. Electronically Signed: Los Larson MD at 6:34 EST , Discharge Plan Triage Chief Complaint: Back ED Provider: Atilio Hall Dx/Rx/DC Orders Clinical Impression: Rib pain on left side Instructions: ED Thoracic Spine Strain Prescriptions: New tramadol 50 MG tablet 50 mg PO Q4H PRN PRN (Reason: Pain) 2 Days Qty: 12 RF: 0 No Action estradiol 1 MG tablet 1 mg PO DAILY Qty: 30 RF: 12 Primary Care Provider: José Miguel Ngo Referrals: José Miguel Ngo MD [Primary Care Provider] - Disposition Disposition: Home, Self Care
--- NOTE | 2022-01-04 06:00 | RAD_ITS ---
STUDY: X-RAY - UNILATERAL RIBS ( LEFT ) WITH CHEST REASON FOR EXAM: Female, 31 years old. pain posteriorly TECHNIQUE - RIBS: 4 view(s) of the ribs. TECHNIQUE - CHEST: Single PA view of the chest. COMPARISON: 02/25/2019 FINDINGS - RIBS: Normal visualized ribs without a demonstrated fracture. FINDINGS - CHEST: The lungs are clear and expanded. There is no demonstrated pleural abnormality. Normal size heart. Normal mediastinum and anthony. Normal visualized pulmonary arteries. Normal visualized aortic arch and descending thoracic aorta. Normal visualized thoracic spine. Normal visualized ribs, clavicles, and shoulders. There is no demonstrated abnormality of the visualized soft tissue structures of the upper abdomen. RAD/Ribs Uni Min 3V w/PA Chest IMPRESSION: RIBS: Normal x-ray examination of the ribs. CHEST: Normal x-ray examination of the chest. Electronically Signed: Los Larson MD at 6:34 EST ,
[2022-01-04] MEDS: traMADol 50 MG Tablet PO (06:48)
== END 2022-01-04 07:11 | disposition home or self-care (01) ==
PROVIDERS: Emergency Provider Emergency Medicine; PCP Family Medicine; Visit Provider Emergency Medicine
DX: R07.81 Pleurodynia (principal); F17.210 Nicotine dependence, cigarettes, uncomplicated
CPT/HCPCS: 71101; 99282

== ENCOUNTER 2022-03-07 15:22 | Emergency (ER) | payer OTHER, SELFPAY ==
[2022-03-07 15:23] VITALS: BP 136/86; PULSE 93; RESP 16; TEMP 36.4; O2SAT 100; BMI 31.8
--- NOTE | 2022-03-07 15:40 | CT_ITS ---
INDICATION: rlq abdominal pain EXAMINATION: CT ABDOMEN AND PELVIS WITH CONTRAST - CT Abdomen And Pelvis W/ Contrast Injection TECHNIQUE: Helically acquired images were obtained of the abdomen and pelvis following IV contrast. A radiation dose optimization technique was used for this scan. IV Contrast dosage and agent: 100 cc Isovue-300 Oral contrast: None. COMPARISON: 01/10/2021 FINDINGS: LOWER CHEST: Lung bases are clear. No cardiomegaly or pericardial effusion. LIVER: Homogeneous. No focal mass. GALLBLADDER AND BILIARY TREE: No calcified gallstones. No gallbladder distension or wall edema. No intra- or extrahepatic biliary ductal dilation. PANCREAS: No focal cystic or solid mass. SPLEEN: Normal size without focal cystic or solid mass. ADRENAL GLANDS: No nodules. KIDNEYS AND URETERS: Normal renal size and position. No hydronephrosis. PERITONEUM: No ascites or free air. BOWEL: Normal appendix. No stomach or bowel distension. No focal inflammatory bowel wall changes. LYMPH NODES: No enlarged mesenteric or retroperitoneal lymph nodes. VESSELS: Aorta is non-dilated. URINARY BLADDER: Unremarkable. REPRODUCTIVE ORGANS: Uterus absent. ABDOMINAL WALL: Small fat-containing umbilical hernia. BONES: No acute or aggressive abnormality. CT/Abdomen/Pelvis W IV Cont ONLY IMPRESSION: No acute findings in the abdomen or pelvis. Electronically Signed: Too Stacy MD at 16:54 EDT ,
[2022-03-07 15:59] LABS: Absolute Lymphocyte Count 3.54 X10^3/uL (0.83-4.51); Absolute Neutrophil Count 6.1 X10^3/uL (2.0-7.7); Basophil# 0.07 X10^3/uL; Basophil% 0.6 % (0-1); Eosinophil# 0.45 X10^3/uL; Eosinophils% 4.2 % (0-5); Hemoglobin 13.5 g/dL (12.0-15.0); Lymphocyte # 3.54 X10^3/ul (0.83-4.51); Lymphocyte % 32.8 % (19-41); Mean Corp Hgb Conc 33.8 g/dL (32-36); Mean Corpuscular Hgb 30.8 pg (27.0-32.0); Mean Corpuscular Volume 91.1 fL (81-99); Mean Platelet Vol. 9.8 fl (6.2-12.0); Monocyte# 0.61 X10^3/uL; Monocyte% 5.7 % (0-10); NRBC Flagged by Analyzer 0 % (0-5); Neutrophil # 6.08 X10^3/uL (2.7-7.7); Neutrophil % 56.3 % (47-70); Platelet Count 331 K/mm3 (150-450); RBC Distribution Width SD 43.2 fl (35.1-43.9); Red Blood Count 4.39 M/mm3 (4.2-5.4); White Blood Count 10.8 K/mm3 (4.4-11.0)
[2022-03-07 16:04] LABS: Bacteria 0 SEEN /hpf (None Seen); Mucous, Urine 0 SEEN /hpf (<or=2+); Red Blood Cells-Urine 0 SEEN /hpf (0-5); White Blood Cells 0 SEEN /hpf (0-5)
[2022-03-07 16:15] LABS: AST(SGOT) 16 U/L (15-37); Alanine Aminotransfer ALT/SGPT 26 U/L (13-56); Alkaline Phosphatase 84 U/L (45-117); Anion Gap 7 (5-15); BUN 9 mg/dL (7-18); BUN/Creat Ratio 10.7 RATIO (10-20); Calcium,Total 9.3 mg/dL (8.5-10.1); Chloride 108 mmol/L (98-107); Creatinine, Serum 0.84 mg/dL (0.55-1.02); EST Glomerular Filtration Rate 83 mL/min (>60); Est Glom Filt Rate - Afr Amer 100 mL/min (>60); Estimated Creatinine Clearance 75.34 ml/min; Globulin 3.9 g/dL (2.2-4.2); Glucose 122 mg/dL (74-106); Potassium 3.5 mmol/L (3.5-5.1); Protein, Total 7.9 g/dL (6.4-8.2); Sodium Level 139 mmol/L (136-145)
[2022-03-07] MEDS: Ondansetron 4 MG/2 ML Vial IV (16:18)
[2022-03-07] MEDS: Morphine 4 MG/ML Syringe IV (16:19)
[2022-03-07 16:37] LABS: Color, Urine Straw (Yellow); Glucose, Dipstick Normal (Normal); Ketone-Dipstick Negative (Negative); Leukocyte Esterase-Dipstick Negative /ul (Negative); Nitrite-Dipstick Negative (Negative); Occult Blood-Urine Negative /ul (Negative); Protein-Dipstick Negative (Negative); Urine Bilirubin Dipstick Negative (Negative); Urine Clarity Clear (Clear); Urine Urobilinogen Normal (Normal)
[2022-03-07 17:02] LABS: Squamous Epithelial Cells - UA 0-5 SEEN /hpf (5-10)
--- NOTE | 2022-03-07 17:15 | ED.VIS.GI ---
HPI HPI - GI History of Present Illness Chief Complaint: Abd Pain Narrative Narrative: 31-year-old female presenting with right lower quadrant abdominal pain. She states been present for a couple of days. It is gradually been building. She describes it as a 5 out of 10 pain currently. She was seen by her primary care physician who thought she might have appendicitis. She denies fever, chills. She has nausea without vomiting. She has no constipation or diarrhea. No vaginal complaints. She is status post hysterectomy and salpingo-oophorectomy distantly. No concern for . PFSH PFS Medical History Chronic neck and back pain Ectopic Endometriosis History of ovarian cyst History of PCOS Severe headache Home Medications cholecalciferol (vitamin D3) 50 mcg (2,000 unit) capsule 50 mcg PO DAILY 01/21/22 [History Last Taken Unknown] estradiol 2 mg tablet 2 mg PO DAILY #60 tab 01/21/22 [Rx Last Taken Unknown] Allergy/AdvReac Type Severity Reaction Status Date / Time clindamycin Allergy Rash Verified 03/07/22 15:25 Sulfa (Sulfonamide Allergy Unknown Verified 03/07/22 15:25 Antibiotics) Family History Grandfather Diabetes Heart disease Surgical History H/O unilateral oophorectomy (~01/30/21) History of laparoscopy History of 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 ROS ROS ED Constitutional Constitutional ED: Denies chills or fever(s) ENT ENT ED: Denies rhinorrhea or sore throat Cardiovascular Cardiovascular: Denies chest pain or palpitations Respiratory/Chest Respiratory/Chest: Denies cough or dyspnea Gastrointestinal Gastrointestinal: Reports abdominal pain and nausea; Denies constipation, diarrhea or vomiting Genitourinary Genitourinary ED: Denies dysuria or hematuria Musculoskeletal Musculoskeletal: Denies arthralgias or myalgias Integumentary Denies rash Neurologic Neurologic: Denies headache(s) Psychiatric Psychiatric: Denies anxiety or depression EXAM Physical Exam Const Vital Signs: 03/07/22 15:23 Temperature 97.6 F L Temperature Source Temporal Pulse Rate 93 Respiratory Rate 16 Blood Pressure 136/86 H Blood Pressure Mean 102 Pulse Ox 100 Oxygen Delivery Method Room Air Positive well nourished General Appearance ED: NAD; Negative for pallor HEENT Reports moist mucous membranes normocephalic and atraumatic Eyes PERRL and EOMs intact bilaterally Resp normal respiratory effort and clear to auscultation bilaterally Cardio regular rate and regular rhythm GI non-distended Palpation: soft and tender RLQ Neuro Sensorium / Orientation: alert, oriented to person, oriented to place and oriented to time Psych mental status grossly normal Skin General Skin Exam: Negative for jaundice or pallor Lesions: no lesions Rashes: no rashes MDM MDM MDM Narrative Medical decision making narrative: Patient presenting with right lower quadrant abdominal pain. She has nausea without vomiting and denies any constipation, diarrhea. She has no vaginal or urinary complaints. CBC and CMP are unremarkable. Urinalysis negative for infection. Patient initially declined morphine and Zofran but did accept this while waiting for CT imaging. CT scan of the abdomen pelvis with IV contrast is negative for acute appendicitis or other acute intra-abdominal abnormality. Patient counseled on findings comfortable being discharged home. She was given return cautions. Patient stable for discharge at this time. Impression: 1. Right lower quadrant abdominal pain 2. Nausea Lab Data Attestation: I reviewed the patient's lab results. Labs: Laboratory Results - last 24 hr 03/07/22 03/07/22 03/07/22 15:47 15:47 15:55 WBC 10.8 RBC 4.39 Hgb 13.5 Hct 40.0 MCV 91.1 MCH 30.8 MCHC 33.8 RDW Std Deviation 43.2 RDW Coeff of Benji 13.0 Plt Count 331 MPV 9.8 Immature Gran % (Auto) 0.400 Neut % (Auto) 56.3 Lymph % (Auto) 32.8 Loving % (Auto) 5.7 Eos % (Auto) 4.2 Baso % (Auto) 0.6 Absolute Neuts (auto) 6.1 Absolute Lymphs (auto) 3.54 Nucleated RBC % 0 Sodium 139 Potassium 3.5 Chloride 108 H Carbon Dioxide 24.0 Anion Gap 7 BUN 9 Creatinine 0.84 Estim Creat Clear Calc 75.34 Est GFR (MDRD) Af Amer 100 Est GFR (MDRD) Non-Af 83 BUN/Creatinine Ratio 10.7 Glucose 122 H Calcium 9.3 Total Bilirubin 0.20 AST 16 ALT 26 Alkaline Phosphatase 84 Total Protein 7.9 Albumin 4.0 Globulin 3.9 Albumin/Globulin Ratio 1.0 Urine Color Straw Urine Clarity Clear Urine pH 6.0 Ur Specific [place] 1.010 Urine Protein Negative Urine Glucose (UA) Normal Urine Ketones Negative Urine Occult Blood Negative Urine Nitrite Negative Urine Bilirubin Negative Urine Urobilinogen Normal Ur Leukocyte Esterase Negative Urine RBC 0 SEEN Urine WBC 0 SEEN Ur Squamous Epith Cells 0-5 SEEN Urine Bacteria 0 SEEN Urine Mucus 0 SEEN Radiography Diagnostic Testing: Clinical Impression(s) from Imaging Studies Abdomen/Pelvis CT 03/07/22 15:40 IMPRESSION: No acute findings in the abdomen or pelvis. Electronically Signed: Too Stacy MD at 16:54 EDT Reading Location ID and State: [id number] Tel , Service support , Discharge Plan Triage Chief Complaint: Abd Pain ED Provider: Gera Ellsworth Dx/Rx/DC Orders Instructions: ED Abdominal Pain Unkn Cause Fem Prescriptions: No Action cholecalciferol (vitamin D3) 50 mcg (2,000 unit) capsule 50 mcg PO DAILY RF: 0 estradiol 2 mg tablet 2 mg PO DAILY Qty: 60 RF: 1 Primary Care Provider: José Miguel Ngo Referrals: José Miguel Ngo MD [Primary Care Provider] - Disposition Disposition: Home, Self Care
[2022-03-07 17:16] VITALS: BP 114/73; PULSE 78; RESP 15; TEMP 36.5; O2SAT 99
== END 2022-03-07 17:18 | disposition home or self-care (01) ==
PROVIDERS: Emergency Provider Student in an Organized Health Care Education/Training Program; PCP Family Medicine; Visit Provider Student in an Organized Health Care Education/Training Program
DX: R10.31 Right lower quadrant pain (principal); R11.0 Nausea; F17.210 Nicotine dependence, cigarettes, uncomplicated
CPT/HCPCS: 74177; 80053; 81001; 85025; 96374; 96375; 99282; Q9967; A4216; J2405

== ENCOUNTER 2022-05-19 12:48 | Emergency (ER) | payer OTHER, SELFPAY ==
[2022-05-19 12:50] VITALS: BP 153/84; PULSE 106; RESP 16; TEMP 36.7; O2SAT 100; BMI 31.3
--- NOTE | 2022-05-19 14:00 | RAD_ITS ---
STUDY: X-RAY - SOFT TISSUE NECK REASON FOR EXAM: Female, 31 years old. Foreign body sensation TECHNIQUE: 2 view(s) of the neck were obtained. COMPARISON: None. FINDINGS: Normal visualized nasopharynx, oropharynx, hypopharynx. Normal epiglottis. Normal visualized subglottic tracheal air column. Normal prevertebral soft tissue structures. Normal visualized osseous structures. The soft tissue structures are unremarkable. RAD/Neck for Soft Tissue IMPRESSION: Normal x-ray soft tissue neck. Electronically Signed: Vance Laboy MD at 14:14 EDT ,
--- NOTE | 2022-05-19 15:27 | EX.ED.DYSGE1 ---
HPI History of Present Illness Chief Complaint: Foreign Body Narrative Narrative: 31-year-old female presenting with foreign body sensation in her throat. She states he took her medications yesterday for migraine and feels like they are stuck there. She is able to swallow. She has been eating and drinking. She denies significant pain. She called her primary care physician who sent her to the emergency room. Patient states has been otherwise healthy prior to this. No history of foreign bodies In her esophagus in the past. She has no esophageal narrowing that she knows of. She is never had upper endoscopy. [facility] Medical History Chronic neck and back pain Ectopic Endometriosis History of ovarian cyst History of PCOS Severe headache Home Medications Vitamin D3 (with calcium carb) 1 tab PO/SL DAILY 05/19/22 [History Last Taken Unknown] atorvastatin 20 mg tablet 20 mg PO QHS 05/19/22 [History Last Taken Unknown] estradiol 2 mg tablet 2 mg PO DAILY 05/19/22 [History Last Taken Unknown] Allergy/AdvReac Type Severity Reaction Status Date / Time clindamycin Allergy Rash Verified 05/19/22 12:49 Sulfa (Sulfonamide Allergy Unknown Verified 05/19/22 12:49 Antibiotics) Family History Grandfather Diabetes Heart disease Surgical History H/O unilateral oophorectomy (~01/30/21) History of laparoscopy History of [facility] History of right oophorectomy [place] teeth extracted Social History Smoking Status: Current every day smoker tobacco type: cigarettes alcohol intake: current details: social substance use type: does not use caffeine: Yes what type of physical activity do you participate in: none seatbelt use: always do you feel safe at home: Yes 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 ROS ED Constitutional Constitutional ED: Denies chills or fever(s) Eyes Eyes: Denies blurry vision or change in vision ENT ENT ED: Denies rhinorrhea or sore throat Cardiovascular Cardiovascular: Denies chest pain or palpitations Respiratory/Chest Respiratory/Chest: Denies cough or dyspnea Gastrointestinal Gastrointestinal: Reports other Details: Foreign body sensation in esophagus ; Denies abdominal pain or constipation Genitourinary Genitourinary ED: Denies dysuria or hematuria Musculoskeletal Musculoskeletal: Denies arthralgias or back pain Integumentary Denies abscess or Abrasions Neurologic Neurologic: Denies headache(s) Psychiatric Psychiatric: Denies anxiety or depression EXAM Physical Exam Const Vital Signs: 05/19/22 12:50 05/19/22 13:17 Temperature 98.0 F Temperature Source Temporal Pulse Rate 106 H Respiratory Rate 16 Respiratory Effort Normal Non-Labored Respiratory Pattern Normal Blood Pressure 153/84 H Blood Pressure Mean 107 Pulse Ox 100 Oxygen Delivery Method Room Air Positive well nourished General Appearance ED: NAD HEENT Reports moist mucous membranes and dry mucous membranes HEENT Narrative: No stridor. Tolerating oral secretions. Neck nontender. Trachea midline. Mouth ED: Yes dry mucous membranes Mouth: dry mucous membranes Eyes PERRL and EOMs intact bilaterally Chest Wall inspection of chest normal Resp normal respiratory effort and clear to auscultation bilaterally Auscultation: Negative for rales, rhonchi or wheezes Cardio regular rate and regular rhythm Neuro oriented x3 and CN's II-XII intact bilaterally Sensorium / Orientation: alert MDM MDM MDM Narrative Medical decision making narrative: Patient presenting with foreign body sensation to throat. I do not believe she has a foreign body in there. She is probably has irritation here after taking her pills. She is tolerating her own secretions. She does not have significant pain. No stridor on exam. Soft tissue of the neck x-ray on my interpretation shows no foreign bodies. The radiologist agree. Patient will be given follow-up with Dr. Casiano as needed. I counseled her likely the symptoms would dissipate on their own he can return precautions. Impression: 1. Globus hystericus Lab Data Attestation: I reviewed the patient's lab results. Radiography Diagnostic Testing: Clinical Impression(s) from Imaging Studies Soft Tissue Neck X-Ray 05/19/22 14:00 IMPRESSION: Normal x-ray soft tissue neck. Electronically Signed: Vance Laboy MD at 14:14 EDT , Discharge Plan Triage Chief Complaint: Foreign Body ED Provider: Gera Ellsworth Dx/Rx/DC Orders Instructions: ED Swallowed Foreign Body (Adult) Prescriptions: No Action atorvastatin 20 mg tablet 20 mg PO QHS Label Comments: take 1 tablet by mouth at bedtime for cholesterol estradiol 2 mg tablet 2 mg PO DAILY Label Comments: take 1 tablet by mouth once daily Vitamin D3 (with calcium carb) 1 tab PO/SL DAILY Primary Care Provider: José Miguel Ngo Referrals: FriendGreyson DO [STAFF PHYSICIAN] - José Miguel Ngo MD [Primary Care Provider] - Disposition Disposition: Home, Self Care Discharge Date/Time: 05/19/22 14:31
== END 2022-05-19 14:31 | disposition home or self-care (01) ==
PROVIDERS: Emergency Provider Student in an Organized Health Care Education/Training Program; PCP Family Medicine; Visit Provider Student in an Organized Health Care Education/Training Program
DX: F45.8 Other somatoform disorders (principal); F17.210 Nicotine dependence, cigarettes, uncomplicated
CPT/HCPCS: 70360; 99282

== ENCOUNTER 2022-08-27 14:24 | Emergency (ER) | payer OTHER, SELFPAY ==
[2022-08-27 14:25] VITALS: BP 152/96; PULSE 142; RESP 18; TEMP 35.9; O2SAT 100; BMI 31.8
[2022-08-27 16:05] VITALS: BP 117/72; PULSE 72; RESP 15; O2SAT 100
[2022-08-27 16:32] LABS: Absolute Lymphocyte Count 4.01 X10^3/uL (0.83-4.51); Absolute Neutrophil Count 9.2 X10^3/uL (2.0-7.7); Basophil# 0.07 X10^3/uL; Basophil% 0.5 % (0-1); Eosinophil# 0.45 X10^3/uL; Eosinophils% 3.1 % (0-5); Hematocrit 43.3 % (37-47); Hemoglobin 14.8 g/dL (12.0-15.0); Lymphocyte # 4.01 X10^3/ul (0.83-4.51); Lymphocyte % 27.7 % (19-41); Mean Corp Hgb Conc 34.2 g/dL (32-36); Mean Corpuscular Hgb 30.6 pg (27.0-32.0); Mean Corpuscular Volume 89.6 fL (81-99); Mean Platelet Vol. 10.2 fl (6.2-12.0); Monocyte# 0.71 X10^3/uL; Monocyte% 4.9 % (0-10); NRBC Flagged by Analyzer 0 % (0-5); Neutrophil # 9.18 X10^3/uL (2.7-7.7); Neutrophil % 63.3 % (47-70); Platelet Count 406 K/mm3 (150-450); RBC Distribution Width CV 12.5 % (11.6-14.6); RBC Distribution Width SD 41.5 fl (35.1-43.9); Red Blood Count 4.83 M/mm3 (4.2-5.4); White Blood Count 14.5 K/mm3 (4.4-11.0)
[2022-08-27 16:42] LABS: Anion Gap 9 (5-15); BUN 11 mg/dL (7-18); BUN/Creat Ratio 15.9 RATIO (10-20); Calcium,Total 9.8 mg/dL (8.5-10.1); Chloride 103 mmol/L (98-107); Creatinine, Serum 0.69 mg/dL (0.55-1.02); EST Glomerular Filtration Rate 103 mL/min (>60); Est Glom Filt Rate - Afr Amer 125 mL/min (>60); Estimated Creatinine Clearance 90.86 ml/min; Glucose 126 mg/dL (74-106); Potassium 3.4 mmol/L (3.5-5.1); Sodium Level 134 mmol/L (136-145)
--- NOTE | 2022-08-27 16:46 | CT_ITS ---
STUDY: CT Abdomen And Pelvis W/ Contrast Injection 08/27/2022 6:33 PM REASON FOR EXAM: Female, 32 years old. ABDOMINAL PAIN LLQ pain. PRIOR TOTAL HYSTER TECHNIQUE: Transaxial images were obtained without oral contrast, and with IV 100mL Isovue-370 intravenous contrast. Individualized dose optimization techniques were used for this CT. COMPARISON: 03.07.22. FINDINGS: The visualized lung bases are unremarkable. The visualized portions of the heart are within normal limits. Unremarkable liver. Unremarkable gallbladder and extrahepatic biliary system. Unremarkable spleen. Unremarkable pancreas. Unremarkable bilateral adrenal glands. No acute findings of the right kidney. No acute findings of the left kidney. Unremarkable visualized stomach. Unremarkable small intestine. Unremarkable colon. The appendix is visualized and appears unremarkable. There are no acute findings of the abdominal aorta. Unremarkable inferior vena cava. Subcentimeter mesenteric lymph nodes. Unremarkable urinary bladder. There is absence of the uterus consistent with a prior hysterectomy. There is an umbilical hernia containing fat. Unremarkable osseous structures. CT/Abdomen/Pelvis W IV Cont ONLY IMPRESSION: (NOT LISTED IN ORDER OF SIGNIFICANCE) There are no acute findings. Other findings as above. Electronically Signed: Farhat Stovall MD at 18:36 EDT ,
--- NOTE | 2022-08-27 16:54 | ED.VIS.GI ---
HPI HPI - GI History of Present Illness Chief Complaint: Abd Pain Informant: patient Abdominal Pain/Flank Pain Onset: Days (3-4) Context: Gradual Onset Timing: Continuous Quality: Aching Location: LLQ (w/o radiation/migration) Current Severity: Moderate Maximum Severity: Moderate Worsened by: Nothing Relieved by: Nothing Nausea/Vomiting/Emesis GI Symptom: Positive for Nausea; Negative for Vomiting Onset: Today Diarrhea/Melena/Hematochezia GI Symptom: Positive for - (BM nml and does not seem to worsen or improve pain); Negative for Diarrhea, Melena or Hematochezia Associated Symptoms Associated Symptoms: Negative for Dysuria, Frequency, Hematuria or Urgency Narrative Narrative: Left lower quadrant pain for the past several days. States she was seen at [facility] yesterday for this, she had blood work and a CT without contrast and was told it was unremarkable may be its adhesions. She has not been vomiting. She was not nauseated even, until today after getting out of the shower she felt nauseated and felt like she might throw up so she sat on the toilet and then she felt really lightheaded and every time she stands up and feels a little worse and is felt off ever since. Staff at her doctor's office told her to come here today. She has had multiple prior pelvic surgeries. She had a ruptured ectopic and had a right salpingectomy, she ended up having a torsed ovary on the left and then having that when removed, and between 5 different pelvic surgeries, for various reasons, she has had both ovaries, both tubes, and her uterus all removed. This was all remote and not recent. [facility] Medical History Chronic neck and back pain Ectopic Endometriosis History of ovarian cyst History of PCOS Severe headache Home Medications atorvastatin 20 mg tablet 20 mg PO QHS 05/19/22 [History Last Taken Unknown] estradiol 2 mg tablet 2 mg PO DAILY 05/19/22 [History Last Taken Unknown] dicyclomine 10 mg capsule 20 mg PO Q6H PRN PRN abdominal discomfort #20 CAPSULES 08/27/22 [Rx Last Taken Unknown] ondansetron 4 mg disintegrating tablet 8 mg PO Q8H PRN PRN Nausea #20 tabs 08/27/22 [Rx Last Taken Unknown] Allergy/AdvReac Type Severity Reaction Status Date / Time clindamycin Allergy Rash Verified 08/27/22 14:25 Sulfa (Sulfonamide Allergy Unknown Verified 08/27/22 14:25 Antibiotics) Family History Grandfather Diabetes Heart disease Surgical History H/O unilateral oophorectomy (~01/30/21) History of laparoscopy History of [facility] History of right oophorectomy [place] teeth extracted Social History Smoking Status: Current every day smoker tobacco type: cigarettes alcohol intake: current details: social substance use type: does not use caffeine: Yes what type of physical activity do you participate in: none seatbelt use: always do you feel safe at home: Yes 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 ROS ROS ED Constitutional Constitutional ED: Denies chills or fever(s) Eyes Eyes: Denies change in vision or diplopia ENT ENT ED: Denies rhinorrhea or sore throat Cardiovascular Cardiovascular: Reports lightheadedness; Denies chest pain or palpitations Respiratory/Chest Respiratory/Chest: Denies cough or dyspnea Gastrointestinal Gastrointestinal: Reports abdominal pain and nausea; Denies diarrhea or vomiting Genitourinary Genitourinary ED: Denies dysuria or hematuria Musculoskeletal Musculoskeletal: Denies back pain or neck pain Integumentary Denies abscess or rash Neurologic Neurologic: Denies headache(s), paresthesias or weakness Psychiatric Psychiatric: Denies anxiety or suicidal thoughts EXAM Physical Exam Const Vital Signs: 08/27/22 14:25 08/27/22 16:05 Temperature 96.7 F L Temperature Source Temporal Pulse Rate 142 H 72 Respiratory Rate 18 15 Blood Pressure 152/96 H 117/72 Blood Pressure Mean 114 87 Pulse Ox 100 100 Oxygen Delivery Method Room Air Room Air Positive well nourished and well developed General Appearance ED: well developed and NAD HEENT Reports moist mucous membranes normocephalic and atraumatic Eyes PERRL and EOMs intact bilaterally Neck full ROM and supple Resp normal respiratory effort and clear to auscultation bilaterally Cardio regular rate, regular rhythm and no murmurs GI non-distended GI Narrative: Tender in the left lower quadrant more so than the left upper, no guarding or rebound in either 1, otherwise nontender. No pulsatile mass. Auscultation: normoactive bowel sounds Palpation: soft Back/Spine no CVA tenderness General Back: other FROM Extremity normal to inspection General Extremety ED: Negative for edema, pulses abnormal or tenderness General Extremity: Negative for edema or pulses abnormal Neuro oriented x3, CN's II-XII intact bilaterally and no sensory deficits noted Sensorium / Orientation: awake and alert Motor Exam: strength 5/5 throughout Skin no rashes or lesions noted and no wounds MDM MDM MDM Narrative Medical decision making narrative: Patient does have a mild leukocytosis. I discussed with her waiting to see if we could get records from the outside hospital to see what her CT revealed, and to see what her white blood count was, I also offered and thought it is reasonable to obtain a repeat CT with IV contrast that might show other pathology especially with her leukocytosis. She is comfortable with getting a new CT scan here. In the meantime, she was given fluids, analgesics and nausea medication; my suspicion is that she has a GI process going on and is not dehydrated, and had a vagal reaction causing her to feel near syncopal. CT is negative for any acute, radiologist did note some subcentimeter mesenteric lymph nodes, which could be causing the patient's pain if she has benign viral infection that is causing mesenteric lymphadenopathy/lymphadenitis. At this time I see nothing emergent or surgical, I do not think she needs any other testing here especially since all of her [employer] parts have been resected in the past, and I will prescribe her dicyclomine and antiemetic to use as needed, she feels much better here. Follow-up 3 to 5 days if not improving. Lab Data Attestation: I reviewed the patient's lab results. Labs: Laboratory Results - last 24 hr 08/27/22 08/27/22 08/27/22 14:56 14:56 17:03 WBC 14.5 H RBC 4.83 Hgb 14.8 Hct 43.3 MCV 89.6 MCH 30.6 MCHC 34.2 RDW Std Deviation 41.5 RDW Coeff of Benji 12.5 Plt Count 406 MPV 10.2 Immature Gran % (Auto) 0.500 Neut % (Auto) 63.3 Lymph % (Auto) 27.7 [place] % (Auto) 4.9 Eos % (Auto) 3.1 Baso % (Auto) 0.5 Absolute Neuts (auto) 9.2 H Absolute Lymphs (auto) 4.01 Nucleated RBC % 0 Sodium 134 L Potassium 3.4 L Chloride 103 Carbon Dioxide 22.0 Anion Gap 9 BUN 11 Creatinine 0.69 Estim Creat Clear Calc 90.86 Est GFR (MDRD) Af Amer 125 Est GFR (MDRD) Non-Af 103 BUN/Creatinine Ratio 15.9 Glucose 126 H Calcium 9.8 Serum , Qual NEGATIVE Urine Color Urine Clarity Urine pH Ur Specific [place] Urine Protein Urine Glucose (UA) Urine Ketones Urine Occult Blood Urine Nitrite Urine Bilirubin Urine Urobilinogen Ur Leukocyte Esterase Urine RBC Urine WBC Ur Squamous Epith Cells Amorphous Sediment Urine Bacteria Urine Mucus 08/27/22 17:04 WBC RBC Hgb Hct MCV MCH MCHC RDW Std Deviation RDW Coeff of Benji Plt Count MPV Immature Gran % (Auto) Neut % (Auto) Lymph % (Auto) [place] % (Auto) Eos % (Auto) Baso % (Auto) Absolute Neuts (auto) Absolute Lymphs (auto) Nucleated RBC % Sodium Potassium Chloride Carbon Dioxide Anion Gap BUN Creatinine Estim Creat Clear Calc Est GFR (MDRD) Af Amer Est GFR (MDRD) Non-Af BUN/Creatinine Ratio Glucose Calcium Serum , Qual Urine Color Yellow Urine Clarity Clear Urine pH 7.0 Ur Specific [place] 1.015 Urine Protein Negative Urine Glucose (UA) Normal Urine Ketones 5 H Urine Occult Blood Negative Urine Nitrite Negative Urine Bilirubin Negative Urine Urobilinogen Normal Ur Leukocyte Esterase Negative Urine RBC 0 SEEN Urine WBC 0 SEEN Ur Squamous Epith Cells 0-5 SEEN Amorphous Sediment 1+ Urine Bacteria 0 SEEN Urine Mucus 0 SEEN Radiography Diagnostic Testing: Clinical Impression(s) from Imaging Studies Abdomen/Pelvis CT 08/27/22 16:46 IMPRESSION: (NOT LISTED IN ORDER OF SIGNIFICANCE) There are no acute findings. Other findings as above. Electronically Signed: Farhat Stovall MD at 18:36 EDT , Discharge Plan Triage Chief Complaint: Abd Pain Other Complaint: Syncope ED Provider: Atilio Hall Dx/Rx/DC Orders Clinical Impression: Acute mesenteric adenitis, Acute left lower quadrant pain Instructions: ED Adenitis, Mesenteric Prescriptions: New dicyclomine 10 mg capsule 20 mg PO Q6H PRN PRN (Reason: abdominal discomfort) Qty: 20 0RF ondansetron [ondansetron] 4 mg tablet,disintegrating 8 mg PO Q8H PRN PRN (Reason: Nausea) Qty: 20 0RF No Action atorvastatin 20 mg tablet 20 mg PO QHS Label Comments: take 1 tablet by mouth at bedtime for cholesterol estradiol 2 mg tablet 2 mg PO DAILY Label Comments: take 1 tablet by mouth once daily Primary Care Provider: José Miguel Ngo Referrals: José Miguel Ngo MD [Primary Care Provider] - 3-5 Days if not improving Disposition Disposition: Home, Self Care
[2022-08-27] MEDS: Ondansetron 4 MG/2 ML Vial IV (17:01)
[2022-08-27] MEDS: 0.9% Normal Saline 1,000 ML 999 ML IV (17:01)
[2022-08-27] MEDS: Ketorolac 30 MG/ML Syringe IV (17:01)
[2022-08-27 17:13] LABS: Bacteria 0 SEEN /hpf (None Seen); Mucous, Urine 0 SEEN /hpf (<or=2+); Red Blood Cells-Urine 0 SEEN /hpf (0-5); White Blood Cells 0 SEEN /hpf (0-5)
[2022-08-27 17:18] LABS: Glucose, Dipstick Normal (Normal); Ketone-Dipstick 5 mg/dl (Negative); Leukocyte Esterase-Dipstick Negative /ul (Negative); Nitrite-Dipstick Negative (Negative); Occult Blood-Urine Negative /ul (Negative); Protein-Dipstick Negative (Negative); Specific Gravity, Urine 1.015 (1.002-1.030); Urine Bilirubin Dipstick Negative (Negative); Urine Urobilinogen Normal (Normal)
[2022-08-27 17:26] LABS: Color, Urine Yellow (Yellow); Urine Clarity Clear (Clear)
[2022-08-27 17:27] LABS: Amorphous Sediment 1+; Squamous Epithelial Cells - UA 0-5 SEEN /hpf (5-10)
[2022-08-27 17:53] LABS: Internal QC Validated? YES +Cl - CLEAR BKGD; Pregnancy, Serum, hCG Quali. NEGATIVE Negative
[2022-08-27 19:31] VITALS: PULSE 77; RESP 15; O2SAT 97
== END 2022-08-27 19:31 | disposition home or self-care (01) ==
PROVIDERS: Emergency Provider Emergency Medicine; PCP Family Medicine; Visit Provider Emergency Medicine
DX: I88.0 Nonspecific mesenteric lymphadenitis (principal); F17.210 Nicotine dependence, cigarettes, uncomplicated
CPT/HCPCS: 74177; 80048; 81001; 84703; 85025; 96361; 96374; 96375; 99282; J7030; Q9967; A4216; J2405

== ENCOUNTER 2024-01-20 15:21 | Emergency (ER) | payer OTHER, SELFPAY ==
[2024-01-20 15:21] VITALS: BP 147/96; PULSE 109; RESP 18; TEMP 36.4; O2SAT 100; BMI 33.3
--- NOTE | 2024-01-20 15:30 | EKG12_ITS ---
Test Reason : CP Blood Pressure : / mmHG Vent. Rate : 099 BPM Atrial Rate : 099 BPM P-R Int : 142 ms QRS Dur : 080 ms QT Int : 352 ms P-R-T Axes : 030 006 015 degrees QTc Int : 451 ms Normal sinus rhythm Minimal voltage criteria for LVH, may be normal variant ( R in aVL ) Inferior infarct , age undetermined Poor R wave progression Abnormal ECG Confirmed by Sunil Carpenter ([id number]), editor farm journal FERN VEGA ([id number]) on 01/21/2024 10:49:45 AM Referred By: JAMAAL Confirmed By:Sunil Carpenter
--- NOTE | 2024-01-20 15:49 | EDS_ITS ---
HPI History of Present Illness Chief Complaint: Chest Pain Informant: patient Narrative Narrative: Sent over urgent care for evaluation intermittent right-sided chest pains for 2 days, today's been persistent and more vague. No dyspnea. Vitals indigestion using [id number] medications. Prediabetic hyperlipidemia tobacco history. Postmenopausal since age 30 currently on estrogen. Maternal grandmother stroke in her 30s, paternal grandfather CT in his 30s. No history of stress test. Mild symptoms at this time. Denies recent travel or surgeries. No history of PE or DVT. CVD Risk Factors: Positive for Diabetes, Hypercholesterolemia and Smoking PE Risk Factors: Positive for OCP + Smoking + >/=35; Negative for Recent Travel/Surgery, Recent Immobilization or Prior DVT or PE PFSH [facility] Medical History Chronic neck and back pain Ectopic Endometriosis History of ovarian cyst History of PCOS Severe headache Home Medications atorvastatin 20 mg tablet 20 mg PO QHS 05/19/22 [History Last Taken Unknown] estradiol 2 mg tablet 2 mg PO DAILY 05/19/22 [History Last Taken Unknown] amitriptyline 25 mg tablet 25 mg PO DAILY 09/30/22 [History Last Taken Unknown] estradiol 1 mg tablet 1 mg PO DAILY #90 tabs 04/30/23 [Rx Last Taken Unknown] Allergy/AdvReac Type Severity Reaction Status Date / Time clindamycin Allergy Rash Verified 01/20/24 15:22 Sulfa (Sulfonamide Allergy Unknown Verified 01/20/24 15:22 Antibiotics) Family History Grandfather Diabetes Heart disease Surgical History H/O unilateral oophorectomy (~01/30/21) History of laparoscopy History of [facility] History of right oophorectomy [place] teeth extracted Social History Smoking Status: Current every day smoker tobacco type: cigarettes alcohol intake: former details: social substance use type: does not use caffeine: Yes what type of physical activity do you participate in: none seatbelt use: always do you feel safe at home: Yes 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 ROS ROS ED Constitutional Constitutional ED: Denies chills, fever(s) or sweats Eyes Eyes: Denies change in vision ENT ENT ED: Denies dysphagia or sore throat Cardiovascular Cardiovascular: Reports chest pain; Denies leg edema, palpitations or racing heartbeat Respiratory/Chest Respiratory/Chest: Denies cough, dyspnea or dyspnea on exertion Gastrointestinal Gastrointestinal: Denies abdominal pain, diarrhea, nausea or vomiting Genitourinary Genitourinary ED: Denies dysuria, hematuria or urinary frequency Musculoskeletal Musculoskeletal: Denies back pain, extremity pain or neck pain Integumentary Denies rash or wounds Neurologic Neurologic: Denies headache(s), paresthesias or weakness EXAM Physical Exam Const Vital Signs: 01/20/24 15:21 01/20/24 16:23 01/20/24 18:09 Temperature 97.6 F L 98.3 F Temperature Source Temporal Pulse Rate 109 H 86 86 Respiratory Rate 18 20 H 20 H Blood Pressure 147/96 H 106/76 103/76 Blood Pressure Mean 113 86 85 Pulse Ox 100 97 97 Oxygen Delivery Method Room Air Room Air Positive well nourished and well developed General Appearance ED: well developed and NAD HEENT Reports moist mucous membranes normocephalic and atraumatic Eyes PERRL, EOMs intact bilaterally and conjunctivae normal General Eye ED: Yes normal appearance of both eyes Neck no lymphadenopathy and supple General: Negative for tenderness Chest Wall Negative for inspection of chest normal or palpation of chest normal Chest: Negative for tenderness Resp normal respiratory effort and normal air movement Effort and Inspection: symmetric chest movement; Negative for respiratory distress Cardio regular rate, regular rhythm and no murmurs Peripheral Pulses: pulses 2+ throughout GI normal to inspection, nondistended, normoactive bowel sounds and non-tender Palpation: Negative for guarding or rebound tenderness present Back/Spine no CVA tenderness and no thoracic nor lumbar tenderness Extremity normal to inspection General Extremety ED: Negative for edema or tenderness General Extremity: Negative for edema Neuro oriented x3 and no sensory deficits noted Sensorium / Orientation: awake and alert Skin no rashes or lesions noted and no wounds MDM MDM MDM Narrative Medical decision making narrative: Interventions / MDM: Differential diagnosis: atypical chest pain Diagnosis considered but do not suspect: Pulmonary embolism however D-dimer negative, pneumothorax however x-ray negative. My EKG interpretation: Sinus rate of 99, no ST changes isolated T wave version leads III. Nonspecific. Imaging independently reviewed and interpreted by myself: 2 view chest x-ray: No acute process. External documents reviewed: N/A Test considered but not ordered:N/A ED course: Intermittent to persistent right-sided chest pains. EKG nonspecific findings. Cardiac workup initiated. Low risk Wells criteria for for PE with her being on estrogen with tobacco. I will add a D-dimer. 1700: Negative cardiac workup. D-dimer negative. Two-view chest x-ray ordered. Chest x-ray negative. Patient reassured. Discussed high risk for with her estrogen therapy and tobacco together. Nonspecific right-sided chest pain at this time. She will continue Motrin at home. She will monitor symptoms. Outpatient follow-up with her PCP. Return precaution discussed. All questions were answered. Re-evaluation: stable Disposition discussed with patient/family/significant other: Patient Case discussed with consulting clinician: N/A This note was generated with Playviews dictation software. It may contain incorrect words, spelling, and punctuation that were not noted in checking the note before signing. Lab Data Labs: Laboratory Results - last 24 hr 01/20/24 15:30 WBC 13.6 H RBC 4.63 Hgb 14.2 Hct 42.3 MCV 91.4 MCH 30.7 MCHC 33.6 RDW Std Deviation 44.5 H RDW Coeff of Benji 13.3 Plt Count 384 MPV 9.9 Immature Gran % (Auto) 0.700 Neut % (Auto) 54.5 Lymph % (Auto) 35.5 [place] % (Auto) 5.1 Eos % (Auto) 3.5 Baso % (Auto) 0.7 Absolute Neuts (auto) 7.4 Absolute Lymphs (auto) 4.82 H Nucleated RBC % 0 PT 13.6 INR 1.0 APTT 29.2 D-Dimer Quant (PE/DVT) 0.42 Sodium 137 Potassium 3.7 Chloride 104 Carbon Dioxide 26.0 Anion Gap 7 BUN 12 Creatinine 0.74 Estim Creat Clear Calc 105.63 Est GFR (MDRD) Af Amer 114 Est GFR (MDRD) Non-Af 94 BUN/Creatinine Ratio 16.2 Glucose 91 Calcium 9.8 Troponin I High Sens 3 Radiography Diagnostic Testing: Clinical Impression(s) from Imaging Studies Chest X-Ray 01/20/24 17:14 IMPRESSION: Normal x-ray examination of the chest. Electronically Signed: Bernabe Mcginnis MD at 17:46 EDT Reading Location ID and State: [facility] / [place] Tel , Service support , Discharge Plan Triage Chief Complaint: Chest Pain ED Provider: Andre Phan Dx/Rx/DC Orders Clinical Impression: History of hyperlipidemia, Chest pain Instructions: ED Chest Pain, Noncardiac Prescriptions: No Action amitriptyline 25 mg tablet 25 mg PO DAILY atorvastatin 20 mg tablet 20 mg PO QHS Patient Comments: take 1 tablet by mouth at bedtime for cholesterol estradiol 2 mg tablet 2 mg PO DAILY Patient Comments: take 1 tablet by mouth once daily estradiol 1 mg tablet 1 mg PO DAILY Qty: 90 4RF Primary Care Provider: José Miguel Ngo Referrals: José Miguel Ngo MD [Primary Care Provider] - Activity Restrictions/Additional Instructions: Your cardiac workup negative. D-dimer negative. Chest x-ray negative. Avoid the estrogen smoking combo as this can lead to risk for blood clots. Continue ibuprofen 600 every 6 hours as needed. Follow-up your doctor further testing as an outpatient. Disposition Disposition: Home, Self Care Discharge Date/Time: 01/20/24 18:12
[2024-01-20] MEDS: Ketorolac 15 MG/ML Vial IV (16:05)
[2024-01-20 16:09] LABS: Absolute Lymphocyte Count 4.82 X10^3/uL (0.83-4.51); Absolute Neutrophil Count 7.4 X10^3/uL (2.0-7.7); Basophil% 0.7 % (0-1); Eosinophil# 0.47 X10^3/uL; Eosinophils% 3.5 % (0-5); Hematocrit 42.3 % (37-47); Hemoglobin 14.2 g/dL (12.0-15.0); Lymphocyte # 4.82 X10^3/ul (0.83-4.51); Lymphocyte % 35.5 % (19-41); Mean Corp Hgb Conc 33.6 g/dL (32-36); Mean Corpuscular Hgb 30.7 pg (27.0-32.0); Mean Corpuscular Volume 91.4 fL (81-99); Mean Platelet Vol. 9.9 fl (6.2-12.0); Monocyte# 0.69 X10^3/uL; Monocyte% 5.1 % (0-10); NRBC Flagged by Analyzer 0 % (0-5); Neutrophil # 7.39 X10^3/uL (2.7-7.7); Neutrophil % 54.5 % (47-70); Platelet Count 384 K/mm3 (150-450); RBC Distribution Width CV 13.3 % (11.6-14.6); RBC Distribution Width SD 44.5 fl (35.1-43.9); Red Blood Count 4.63 M/mm3 (4.2-5.4); White Blood Count 13.6 K/mm3 (4.4-11.0)
[2024-01-20 16:20] LABS: Partial Thromboplast Time 29.2 Seconds (24.1-36.2)
[2024-01-20 16:23] VITALS: BP 106/76; PULSE 86; RESP 20; O2SAT 97
[2024-01-20 16:27] LABS: Anion Gap 7 (5-15); BUN 12 mg/dL (7-18); BUN/Creat Ratio 16.2 RATIO (10-20); Calcium,Total 9.8 mg/dL (8.5-10.1); Chloride 104 mmol/L (98-107); Creatinine, Serum 0.74 mg/dL (0.55-1.02); EST Glomerular Filtration Rate 94 mL/min (>60); Est Glom Filt Rate - Afr Amer 114 mL/min (>60); Estimated Creatinine Clearance 105.63 ml/min; Glucose 91 mg/dL (74-106); Potassium 3.7 mmol/L (3.5-5.1); Sodium Level 137 mmol/L (136-145); Troponin-I HS 3 pg/mL (3.0-54.0)
[2024-01-20 16:30] LABS: Prothrombin Time (Protime)PT. 13.6 SECONDS (11.7-14.9)
[2024-01-20 16:50] LABS: D-Dimer Quantitative (DVT/PE) 0.42 FEU/ug/m (0.27-0.49)
--- NOTE | 2024-01-20 17:14 | RAD_ITS ---
STUDY: X-RAY CHEST REASON FOR EXAM: Female, 33 years old. pain TECHNIQUE: PA and lateral COMPARISON: None. FINDINGS: The lungs are clear and expanded. There is no demonstrated pleural abnormality. Normal size heart. Normal mediastinum and anthony. Normal visualized pulmonary arteries. Normal visualized aortic arch and descending thoracic aorta. Normal visualized thoracic spine. Normal visualized ribs, clavicles, and shoulders. There is no demonstrated abnormality of the visualized soft tissue structures of the upper abdomen. RAD/Chest PA and Lateral IMPRESSION: Normal x-ray examination of the chest. Electronically Signed: Bernabe Mcginnis MD at 17:46 EDT ,
[2024-01-20 18:09] VITALS: BP 103/76; PULSE 86; RESP 20; TEMP 36.8; O2SAT 97
== END 2024-01-20 18:12 | disposition home or self-care (01) ==
PROVIDERS: Emergency Provider Emergency Medicine; PCP Family Medicine; Visit Provider Emergency Medicine
DX: R07.89 Other chest pain (principal); E78.00 Pure hypercholesterolemia, unspecified; F17.210 Nicotine dependence, cigarettes, uncomplicated; Z79.899 Other long term (current) drug therapy
CPT/HCPCS: 71046; 80048; 84484; 85025; 85379; 85610; 85730; 93005; 96374; 99284; A4216

== ENCOUNTER 2025-01-11 16:31 | Emergency (ER) | payer OTHER, SELFPAY ==
[2025-01-11] VITALS (13 sets, daily range): BP systolic 108–123; BP diastolic 65–91; PULSE 69–108; RESP 12–27; TEMP 36.4; O2SAT 96–100; BMI 32.1
--- NOTE | 2025-01-11 16:58 | EKG12_ITS ---
Test Reason : CP Blood Pressure : */* mmHG Vent. Rate : 89 BPM Atrial Rate : 89 BPM P-R Int : 130 ms QRS Dur : 86 ms QT Int : 330 ms P-R-T Axes : 42 19 25 degrees QTcB Int : 401 ms Normal sinus rhythm Possible Left atrial enlargement Borderline ECG Confirmed by ISAAC SY, JANAK ([id number]), dictionary editor FERN VEGA ([id number]) on 01/16/2025 11:01:06 AM Referred By: Confirmed By: JANAK GRAY MD
--- NOTE | 2025-01-11 17:10 | RAD_ITS ---
PROCEDURE: Chest radiograph REASON FOR EXAM: CHEST PAIN TECHNIQUE: Frontal view of the chest. COMPARISON: 01/20/2024 FINDINGS: Cardiomediastinal silhouette is within normal limits. Lungs are clear. No sizable pneumothorax. RAD/Chest 1 View (Portable) IMPRESSION: No acute airspace abnormality. Reading Location: [facility]
--- NOTE | 2025-01-11 17:12 | EDS_ITS ---
HPI History of Present Illness Chief Complaint: Chest Pain Narrative Narrative: 34-year-old female presents with right-sided facial pain and right-sided chest pressure that began approximately an hour to an hour and a half ago. She states that she is getting brief, sharp, lancinating pain in the right lower face that started first. It is not constant. It happens every so often and continues to do so. She then developed chest pressure, on the right side of her chest radiating up towards her shoulder. She was nauseated but had not vomited. No shortness of breath or diaphoresis. No pleuritic component, no leg swelling. Of note, she relates history that she was seen in the emergency department last year with similar symptoms regarding the chest pressure. However she had gone to urgent care first and it had lasted a few days before she was seen. She followed up with her primary care provider, and states that she had an echocardiogram and a stress test which were both normal. She does continue to smoke. She presents with 2 separate complaints that may have some correlation to each other but mainly right sided sharp pain of her face and right sided chest pressure. [facility] Medical History Acid reflux Chronic neck and back pain Severe headache Endometriosis Ectopic History of PCOS History of ovarian cyst Home Medications ?Medication ?Instructions ?Recorded ?Last Taken ?Type estradiol 1 mg tablet 1 mg PO DAILY #90 tabs 04/14 Unknown Rx metformin 500 mg tablet 500 mg PO DAILY 04/14/24 Unk nown History spironolactone 50 mg tablet 50 mg PO BID 04/14/24 Unkn own History carbamazepine 100 mg 100 mg PO BID #20 tabs 01/11 Unknown Rx tablet,extended release,12 hr rosuvastatin 5 mg tablet (Crestor) 10 mg PO DAILY 12/31 12/27 Unknown History Allergy/AdvReac Type Severity Reaction Status Date / Time Sulfa (Sulfonamide Allergy Mild Rash Verified 01/11/25 16:33 Antibiotics) clindamycin Allergy Rash Verified 01/11/25 16:33 Family History Grandfather Diabetes Heart disease Surgical History H/O unilateral oophorectomy (~01/30/21) History of right oophorectomy History of [facility] [place] teeth extracted History of laparoscopy Social History Smoking Status: Current every day smoker tobacco type: cigarettes alcohol intake: former details: social substance use type: does not use caffeine: Yes what type of physical activity do you participate in: none seatbelt use: always do you feel safe at home: Yes 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 HEENT: No sore throat. No neck pain. Right sided sharp, intermittent, lancinating lower face pain. No rhinorrhea. Cardiovascular: Positive right-sided chest pressure/chest pain. No palpi tations. No pedal edema. Respiratory: No cough, no shortness of breath. Abdominal: No abdominal pain. Positive nausea. No vomiting. Musculoskeletal: No myalgias. No arthralgias. Neurologic: No headaches. No dizziness. No lightheadedness. Psychiatric: No depression. No anxiety. EXAM Physical Exam Narrative Exam Narrative: Afebrile. Vital signs noted. Nontoxic-appearing. Cardiovascular examination reveals a regular rate and rhythm with intermittent tachycardia. Lungs clear to auscultation bilaterally. Abdomen soft and nontender without guarding or rebound. HEENT examination grossly unremarkable. No facial nerve paralysis. Neck soft and supple without stridor. Neurological examination nonfocal and nonlateralizing. Const Vital Signs: 01/11/25 16:31 01/11/25 16:59 01/11/25 17:23 Temperature 97.5 F L Temperature Source Temporal Pulse Rate 108 H 86 Respiratory Rate 16 21 H Blood Pressure 123/90 H Blood Pressure Mean 101 Pulse Ox 98 99 Oxygen Delivery Method Room Air Room Air 01/11/25 17:30 01/11/25 17:45 01/11/25 18:00 Temperature Temperature Source Pulse Rate 80 75 Respiratory Rate 22 H 14 14 Blood Pressure 114/88 H 118/79 108/79 Blood Pressure Mean 97 92 89 Pulse Ox 98 98 98 Oxygen Delivery Method Room Air Room Air Room Air 01/11/25 18:15 01/11/25 18:30 01/11/25 18:45 Temperature Temperature Source Pulse Rate 75 77 Respiratory Rate 18 12 Blood Pressure 110/74 123/79 H 119/91 H Blood Pressure Mean 84 92 101 Pulse Ox 97 100 97 Oxygen Delivery Method Room Air Room Air 01/11/25 19:00 01/11/25 19:00 01/11/25 19:15 Temperature Temperature Source Pulse Rate 69 69 87 Respiratory Rate 13 13 12 Blood Pressure 114/76 112/65 Blood Pressure Mean 88 81 Pulse Ox 97 97 97 Oxygen Delivery Method Room Air 01/11/25 19:30 01/11/25 19:45 01/11/25 20:00 Temperature Temperature Source Pulse Rate 81 70 72 Respiratory Rate 13 16 27 H Blood Pressure 115/74 Blood Pressure Mean 85 Pulse Ox 97 98 96 Oxygen Delivery Method Room Air MDM MDM MDM Narrative Medical decision making narrative: Differential diagnosis includes but not limited to ACS versus pulmonary embolism versus pneumothorax versus pneumonia. Regarding the facial pain, I be more of neurological tic douloureux Ryle that is not associated with the chest pain. Chest pain protocol was instituted. EKG will be obtained as well. EKG obtained interpreted by myself independently as normal sinus rhythm at 89 bpm without ectopy or acute ST changes. No STEMI. I reviewed her laboratory work and she does have a leukocytosis of 21.3. In review of her prior labs, it has been as high and it seems like it is more of a chronic leukocytosis. Hemoglobin 14.5, hematocrit 43.1. Platelet count normal at 429. D-dimer is negative at less than 0.27 so I doubt pulmonary embolism. BMP is grossly unremarkable, normal sodium and normal potassium. Initial high-sensitivity troponin is less than 6 with repeat at 2 hours also being less than 6. I feel she has been ruled out with biomarkers. I doubt aortic dissection because she has an appropriate blood pressure here in the emergency department and she does not have any tearing back pain. Chest x-ray in 1 view interpreted by myself independently shows no evidence of acute process, no pneumonia, no pneumothorax. I reviewed the radiology report which confirms my independent interpretation. At this point in time, she was treated with a dose of 100 mg of carbamazepine for her facial pain which I suspect might be tic douloureux/trigeminal neuralgia. She was written a prescription to take 100 mg twice a day for the next 10 days. By then she should be able to follow-up with her primary care provider. She was also told of her leukocytosis and the need for follow-up with her primary care provider and possibly hematology/oncology. Return instructions to the emergency department were reviewed. Disposition is discharged home in stable condition. History & Record Review Discussion w/independent historian: Patient Lab Data Attestation: I reviewed the patient's lab results. Labs: Laboratory Results - last 24 hr 01/11/25 01/11/25 16:54 18:59 WBC 21.3 H RBC 4.79 Hgb 14.5 Hct 43.1 MCV 90.0 MCH 30.3 MCHC 33.6 RDW Std Deviation 44.1 H RDW Coeff of Benji 13.4 Plt Count 429 MPV 10.0 Immature Gran % (Auto) 2.200 H Neut % (Auto) 55.5 Lymph % (Auto) 34.9 [place] % (Auto) 5.3 Eos % (Auto) 1.8 Baso % (Auto) 0.3 Absolute Neuts (auto) 11.8 H Absolute Lymphs (auto) 7.42 H Nucleated RBC % 0 [address] Review May foll Reactive Lymphocytes 3+ Platelet Estimate A D-Dimer Quant (PE/DVT) < 0.27 L Sodium 138 Potassium 4.0 Chloride 102 Carbon Dioxide 23.6 Anion Gap 12 BUN 18 Creatinine 0.77 Estim Creat Clear Calc 98.85 Est GFR (MDRD) Non-Af 102 BUN/Creatinine Ratio 22.6 H Glucose 101 H Calcium 9.8 Troponin T High Sens < 6 Troponin T Hi Sens 2 Hr < 6 Radiography Diagnostic Testing: Clinical Impression(s) from Imaging Studies Chest X-Ray 01/11/25 17:10 IMPRESSION: No acute airspace abnormality. Reading Location: [facility] Discharge Plan Triage Chief Complaint: Chest Pain ED Provider: Raleigh Escoto Dx/Rx/DC Orders Clinical Impression: Chest pain, Facial pain, Trigeminal neuralgia, Leukocytosis Instructions: ED Chest Pain, Uncertain Cause, ED Pain, Acute, Uncertain Cause Prescriptions: New carbamazepine 100 mg tablet extended release 12 hr 100 mg PO BID Qty: 20 0RF No Action metformin 500 mg tablet 500 mg PO DAILY spironolactone 50 mg tablet 50 mg PO BID estradiol 1 mg tablet 1 mg PO DAILY Qty: 90 3RF rosuvastatin [Crestor] 5 mg tablet 10 mg PO DAILY Primary Care Provider: Radha Garduno NP Referrals: José Miguel Ngo MD [Non-Staff] - 3-5 Days if not improving Activity Restrictions/Additional Instructions: Take medication as directed. Follow-up with your primary care provider r egarding your facial pain and your chest pain. You may need referral to neurology. Return to the emergency department with new or worsening symptoms. You may need referral to hematology/oncology regarding her elevated white blood cell count. Have this rechecked by her primary care provider in 1 to 2 weeks. Print Language: Indonesian Disposition Disposition: Home, Self Care Discharge Date/Time: 01/11/25 20:30
[2025-01-11 17:15] LABS: Absolute Lymphocyte Count 7.42 X10^3/uL (0.83-4.51); Absolute Neutrophil Count 11.8 X10^3/uL (2.0-7.7); Basophil# 0.07 X10^3/uL; Basophil% 0.3 % (0-1); Eosinophil# 0.39 X10^3/uL; Eosinophils% 1.8 % (0-5); Hematocrit 43.1 % (37-47); Hemoglobin 14.5 g/dL (12.0-15.0); Lymphocyte # 7.42 X10^3/ul (0.83-4.51); Lymphocyte % 34.9 % (19-41); Mean Corp Hgb Conc 33.6 g/dL (32-36); Mean Corpuscular Hgb 30.3 pg (27.0-32.0); Monocyte# 1.13 X10^3/uL; Monocyte% 5.3 % (0-10); NRBC Flagged by Analyzer 0 % (0-5); Neutrophil % 55.5 % (47-70); POSITIVE DIFFERENTIAL YES; POSITIVE MORPHOLOGY YES; Platelet Count 429 K/mm3 (150-450); RBC Distribution Width CV 13.4 % (11.6-14.6); RBC Distribution Width SD 44.1 fl (35.1-43.9); Red Blood Count 4.79 M/mm3 (4.2-5.4); White Blood Count 21.3 K/mm3 (4.4-11.0)
[2025-01-11 17:39] LABS: Anion Gap 12 (5-15); BUN 18 mg/dL (4-19); BUN/Creat Ratio 22.6 RATIO (10-20); Calcium,Total 9.8 mg/dL (7.6-11.0); Carbon Dioxide 23.6 mmol/L (21.0-32.0); Chloride 102 mmol/L (98-108); Creatinine, Serum 0.77 mg/dL (0.70-1.20); EST Glomerular Filtration Rate 102 (>60); Estimated Creatinine Clearance 98.85 ml/min (50-250); Glucose 101 mg/dL (70-99); Sodium Level 138 mmol/L (133-145); Troponin T High Sensitivity < 6 ng/L (<=14)
--- NOTE | 2025-01-11 17:49 | ED.RN ---
LAB CALLED FOR OUTSTANDING D-DIMER. TUBES SENT W/ INITIAL BLOOD WORK, AND LABELS SENT BY MYSELF WHEN ADDED ON. RESPONSE WE DID NOT GET STICKERS, BUT WE HAVE THE TUBE. WE CAN RUN IT NOW
[2025-01-11 17:58] LABS: Differential Indicated SCAN CRITERIA MET
[2025-01-11 18:02] LABS: Platelet Estimate A (ADEQ); Reactive Lymphocyte 3+
[2025-01-11 18:03] LABS: Pathologist Review May foll
[2025-01-11 18:29] LABS: D-Dimer Quantitative (DVT/PE) < 0.27 FEU/ug/m (0.27-0.49)
[2025-01-11 19:32] LABS: Troponin T High Sens 2 HR < 6 ng/L (<=14)
== END 2025-01-11 20:30 | disposition home or self-care (01) ==
PROVIDERS: Emergency Provider Emergency Medicine; PCP Registered Nurse; Visit Provider Emergency Medicine
DX: R07.89 Other chest pain (principal); G50.0 Trigeminal neuralgia; D72.829 Elevated white blood cell count, unspecified; F17.210 Nicotine dependence, cigarettes, uncomplicated
CPT/HCPCS: 71045; 80048; 84484; 85025; 85379; 93005; 99284; A4216

== ENCOUNTER 2025-03-02 15:11 | Emergency (ER) | payer OTHER, SELFPAY ==
[2025-03-02 15:11] VITALS: BP 128/79; PULSE 134; RESP 18; TEMP 37.9; O2SAT 99; BMI 32.9
[2025-03-02 15:47] VITALS: O2SAT 99
--- NOTE | 2025-03-02 15:47 | EKG12_ITS ---
Test Reason : FEVER Blood Pressure : */* mmHG Vent. Rate : 105 BPM Atrial Rate : 105 BPM P-R Int : 138 ms QRS Dur : 76 ms QT Int : 316 ms P-R-T Axes : 65 61 62 degrees QTcB Int : 417 ms Sinus tachycardia Otherwise normal ECG Confirmed by GUADALUPE SY, CARLO ([id number]), website/blog editor EDWIN LYON ([id number]) on 03/03/2025 8:18:50 AM Referred By: Atilio Hall Confirmed By: CARLO BUTCHER MD
--- NOTE | 2025-03-02 15:49 | EX.ED.DYSGE1 ---
HPI History of Present Illness Chief Complaint: Fever Informant: patient Narrative Narrative: 34-year-old female sent over from urgent care because of fever. She went to urgent care because her back was hurting and did not know she had fever until she was there and it was 102 according to her. She took some Tylenol about 1.5 hours ago because of a migraine. She has had a headache since yesterday and low back pain since this morning. It is low and diffuse bilateral. There is no radiation to her lower extremities, although she does have some left thigh/hip pain that is chronic for the past almost year, she is in physical therapy for this and diagnosed with a torn labrum. 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 Denies any numbness or weakness in her legs. No saddle anesthesia. No bowel or bladder dysfunction. No numbness anywhere else. Denies any abdominal pain. Also she has no cough, diarrhea or vomiting, sore throat, earache, just the headache and she states it is not severe and denies any neck stiffness or confusion/neurologic symptoms or photophobia. Her back definitely hurts more to move. [facility] Medical History Acid reflux Chronic neck and back pain Severe headache Endometriosis Ectopic History of PCOS History of ovarian cyst Home Medications ?Medication ?Instructions ?Recorded ?Last Taken ?Type estradiol 1 mg tablet 1 mg PO DAILY #90 tabs 04/14/24 Unknown Rx metformin 500 mg tablet 500 mg PO DAILY 04/14/24 Unknown History spironolactone 50 mg tablet 50 mg PO BID 04/14/24 Unknown History carbamazepine 100 mg 100 mg PO BID #20 tabs 01/11/25 Unknown Rx tablet,extended release,12 hr rosuvastatin 5 mg tablet (Crestor) 10 mg PO DAILY 01/11/25 Unknown History orphenadrine citrate 100 mg 100 mg PO Q12H PRN muscle pain #14 03/02/25 Unknown Rx tablet,extended release tabs Allergy/AdvReac Type Severity Reaction Status Date / Time Sulfa (Sulfonamide Allergy Mild Rash Verified 03/02/25 15:12 Antibiotics) clindamycin Allergy Rash Verified 03/02/25 15:12 Family History Grandfather Diabetes Heart disease Surgical History H/O unilateral oophorectomy (~01/30/21) History of right oophorectomy History of LAVH [place] teeth extracted History of laparoscopy Social History (Updated 03/02/25 @ 16:13 by Mariann Romero) household members: family and children housing: house current occupational status: employed Smoking Status: Current every day smoker tobacco type: cigarettes alcohol intake: former details: social substance use type: does not use caffeine: Yes what type of physical activity do you participate in: none seatbelt use: always do you feel safe at home: Yes 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 ROS ROS ED Constitutional Constitutional ED: Reports other Details: Fever when checked but patient has had no symptoms of fevers lately ; Denies chills or fever(s) Eyes Eyes: Denies change in vision or diplopia ENT ENT ED: Denies rhinorrhea or sore throat Cardiovascular Cardiovascular: Denies chest pain or palpitations Respiratory/Chest Respiratory/Chest: Denies cough or dyspnea Gastrointestinal Gastrointestinal: Reports nausea; Denies abdominal pain, constipation, fecal incontinence or vomiting Genitourinary Genitourinary ED: Reports other Details: no urinary retention ; Denies abdominal discomfort, dysuria, hematuria, urinary frequency or urinary incontinence Musculoskeletal Musculoskeletal: Reports as per HPI, back pain and other Details: Chronic left hip and proximal thigh pain unchanged ; Denies neck pain Integumentary Denies rash or wounds Neurologic Neurologic: Reports headache(s); Denies paresthesias or weakness Psychiatric Psychiatric: Denies anxiety or suicidal thoughts EXAM Physical Exam Const Vital Signs: 03/02/25 15:11 03/02/25 15:47 03/02/25 16:12 Temperature 100.2 F H Temperature Source Oral Pulse Rate 134 H Respiratory Rate 18 Respiratory Effort Normal Non-Labored Respiratory Pattern Normal Blood Pressure 128/79 H Blood Pressure Mean 95 Pulse Ox 99 99 Oxygen Delivery Method Room Air Room Air 03/02/25 16:15 Temperature 101.5 F H Temperature Source Oral Pulse Rate 109 H Respiratory Rate 14 Respiratory Effort Respiratory Pattern Blood Pressure 123/64 H Blood Pressure Mean 83 Pulse Ox 98 Oxygen Delivery Method Room Air Positive well nourished and well developed Constitutional Narrative: Well-appearing in no distress General Appearance ED: well developed and NAD HEENT Reports moist mucous membranes Negative for trauma or tenderness Eyes PERRL and EOMs intact bilaterally Neck full ROM and supple Resp normal respiratory effort and clear to auscultation bilaterally Cardio regular rate, regular rhythm and no murmurs Rate: tachycardic GI normal to inspection, nondistended, normoactive bowel sounds, soft to palpation and non-tender Auscultation: normoactive bowel sounds Palpation: soft Back/Spine Back/Spine Narrative: Superficially tender throughout lumbar paraspinal musculature without a rash or other abnormal inspection, reproducing the patient's pain. No CVA tenderness bilaterally. General Back: other Limited ROM due to pain but able; and discomfort as she sits up and moves about her low back Lumbar Spine / Lower Back: paraspinal muscle tenderness and straight leg raise negative bilaterally; Negative for lumbar spinal tenderness Extremity normal to inspection, full ROM and no pedal edema General Extremety ED: Negative for edema, pulses abnormal or tenderness General Extremity: Negative for edema or pulses abnormal Neuro oriented x3 and no sensory deficits noted Sensorium / Orientation: alert Motor Exam: strength 5/5 throughout and clonus absent Deep Tendon Reflexes: Rt Patellar (L4): 2+, Lt Patellar (L4): 2+, Rt Ankle (S1): 2+ and Lt Ankle (S1): 2+ Deep Tendon Reflexes Back: Rt Patellar (L4): 2+, Lt Patellar (L4): 2+, Rt Ankle (S1): 2+ and Lt Ankle (S1): 2+ Plantar Reflex: Downgoing: bilateral Psych mental status grossly normal and thought process normal Skin no rashes or lesions noted and no wounds MDM MDM MDM Narrative Medical decision making narrative: My suspicion is that this patient's back pain is musculoskeletal due to her overuse, which is how she had hip issues in the left, and unrelated to her fever. However given this, and her tachycardia which I also presume is related to her fever, obtaining an EKG, chest x-ray, COVID/influenza/RSV swab, and blood work and urinalysis to evaluate for possible sources and rule out dangerous causes. She does not appear to be septic, she looks well. I reviewed her workup that is largely unremarkable. Chest x-ray 2 views of my interpretation negative for pneumonia. COVID/influenza/RSV swab negative. Urinalysis negative for infection. Lactate is within normal limits she has no leukocytosis. I suspect this is all viral. She was given Toradol for her back and said it did not help, her fever went up and her heart rate went down. She was given Tylenol in addition to a dose of morphine and Norflex for what I think is musculoskeletal as above. She has no focal lower extremity neurologic symptoms. Also not presenting like meningitis, her neck is very supple she can move in all directions without any discomfort, limitation, stiffness. I think she stable to be discharged home close a patient follow-up, we discussed reasons to return. Lab Data Attestation: I reviewed the patient's lab results. Labs: Laboratory Results - last 24 hr 03/02/25 03/02/25 15:51 16:08 WBC 9.7 RBC 4.50 Hgb 13.6 Hct 40.9 MCV 90.9 MCH 30.2 MCHC 33.3 RDW Std Deviation 46.5 H RDW Coeff of Benji 13.9 Plt Count 279 MPV 10.3 Immature Gran % (Auto) 0.700 Neut % (Auto) 80.6 H Lymph % (Auto) 6.4 L [place] % (Auto) 9.4 Eos % (Auto) 2.0 Baso % (Auto) 0.9 Absolute Neuts (auto) 7.8 H Absolute Lymphs (auto) 0.62 L Nucleated RBC % 0 PT 13.0 INR 1.0 APTT 23.3 L Sodium 136 Potassium 4.3 Chloride 103 Carbon Dioxide 19.0 L Anion Gap 13 BUN 7 Creatinine 0.79 Estim Creat Clear Calc 97.51 Est GFR (MDRD) Non-Af 99 BUN/Creatinine Ratio 9.4 L Glucose 90 Lactic Acid 1.8 Calcium 9.8 Total Bilirubin 0.17 AST 33 H ALT 21 Alkaline Phosphatase 79 Total Protein 7.4 Albumin 4.5 Globulin 3.0 Albumin/Globulin Ratio 1.5 Urine Color Yellow Urine Clarity Cloudy Urine pH 8.0 Ur Specific [place] 1.015 Urine Protein Negative Urine Glucose (UA) Normal Urine Ketones Negative Urine Occult Blood Negative Urine Nitrite Negative Urine Bilirubin Negative Urine Urobilinogen Normal Ur Leukocyte Esterase 25 H Urine RBC 0 SEEN Urine WBC 0-5 SEEN Ur Squamous Epith Cells 0-5 SEEN Amorphous Sediment 2+ PHOS Urine Bacteria 0 SEEN Urine Mucus 0 SEEN Radiography Diagnostic Testing: Clinical Impression(s) from Imaging Studies Chest X-Ray 03/02/25 16:09 IMPRESSION: No visible acute cardiopulmonary findings Reading Location: [facility] Rhythm Strip Rhythm Strip: Sinus Tach Rate: 120 Ectopy: None EKG Initial EKG: Attestation: I personally reviewed and interpreted this EKG as follows: Interpretation: Sinus Tachycardia (105) Comments: Nml axis & intervals; nml EKG Discharge Plan Triage Chief Complaint: Fever ED Provider: Atilio Hall Dx/Rx/DC Orders Clinical Impression: Acute lumbosacral myofascial strain, Acute viral syndrome Instructions: ED Back Sprain/Strain, ED Viral Syndrome (Adult) Prescriptions: New orphenadrine citrate 100 mg tablet extended release 100 mg PO Q12H PRN (Reason: muscle pain) Qty: 14 0RF No Action metformin 500 mg tablet 500 mg PO DAILY spironolactone 50 mg tablet 50 mg PO BID estradiol 1 mg tablet 1 mg PO DAILY Qty: 90 3RF rosuvastatin [Crestor] 5 mg tablet 10 mg PO DAILY carbamazepine 100 mg tablet extended release 12 hr 100 mg PO BID Qty: 20 0RF Primary Care Provider: Radha Garduno NP Referrals: Radha Garduno NP, [employer] CATCHER-[facility] [Primary Care Provider] - Activity Restrictions/Additional Instructions: If you develop new neurologic symptoms such as numbness or weakness below the level of your pain in your back, or trouble controlling your urine or your bowels (like leaking stool or urine, or not being able to urinate), that suggest a spinal cord problem and you should return to the ER immediately. Otherwise follow-up with your primary care provider in 3-4 days if not improving. Print Language: Singaporean Disposition Disposition: Home, Self Care
[2025-03-02 15:58] LABS: Bacteria 0 SEEN /hpf (None Seen); Mucous, Urine 0 SEEN /hpf (<or=2+); Red Blood Cells-Urine 0 SEEN /hpf (0-5)
[2025-03-02 16:01] LABS: Absolute Lymphocyte Count 0.62 X10^3/uL (0.83-4.51); Absolute Neutrophil Count 7.8 X10^3/uL (2.0-7.7); Basophil# 0.09 X10^3/uL; Basophil% 0.9 % (0-1); Eosinophil# 0.19 X10^3/uL; Hematocrit 40.9 % (37-47); Hemoglobin 13.6 g/dL (12.0-15.0); Lymphocyte # 0.62 X10^3/ul (0.83-4.51); Lymphocyte % 6.4 % (19-41); Mean Corp Hgb Conc 33.3 g/dL (32-36); Mean Corpuscular Hgb 30.2 pg (27.0-32.0); Mean Corpuscular Volume 90.9 fL (81-99); Mean Platelet Vol. 10.3 fl (6.2-12.0); Monocyte# 0.91 X10^3/uL; Monocyte% 9.4 % (0-10); NRBC Flagged by Analyzer 0 % (0-5); Neutrophil # 7.81 X10^3/uL (2.7-7.7); Neutrophil % 80.6 % (47-70); Platelet Count 279 K/mm3 (150-450); RBC Distribution Width CV 13.9 % (11.6-14.6); RBC Distribution Width SD 46.5 fl (35.1-43.9); White Blood Count 9.7 K/mm3 (4.4-11.0)
[2025-03-02] MEDS: Ketorolac 30 MG/ML Syringe IV (16:06)
[2025-03-02 16:09] LABS: Color, Urine Yellow (Yellow); Glucose, Dipstick Normal (Normal); Ketone-Dipstick Negative (Negative); Leukocyte Esterase-Dipstick 25 /ul (Negative); Nitrite-Dipstick Negative (Negative); Occult Blood-Urine Negative /ul (Negative); Protein-Dipstick Negative (Negative); Specific Gravity, Urine 1.015 (1.002-1.030); Urine Bilirubin Dipstick Negative (Negative); Urine Clarity Cloudy (Clear); Urine Urobilinogen Normal (Normal)
--- NOTE | 2025-03-02 16:09 | RAD_ITS ---
PROCEDURE: CHEST PA AND LATERAL (RADCXR), 03/02/2025 REASON FOR EXAM: FEVER TECHNIQUE: PA and lateral views of the chest were obtained. COMPARISON: 01/11/2025 FINDINGS: Heart: Unremarkable. Mediastinum: Unremarkable. Lungs/pleura: No focal consolidation. No pleural effusion or visible pneumothorax. Bones: Unremarkable. Lines and support devices: None. Other: None. RAD/Chest PA and Lateral IMPRESSION: No visible acute cardiopulmonary findings Reading Location: [id number]
[2025-03-02 16:10] LABS: Squamous Epithelial Cells - UA 0-5 SEEN /hpf (5-10); White Blood Cells 0-5 SEEN /hpf (0-5)
[2025-03-02 16:12] LABS: Amorphous Sediment 2+ PHOS
[2025-03-02 16:15] VITALS: BP 123/64; PULSE 109; RESP 14; TEMP 38.6; O2SAT 98
[2025-03-02 16:35] LABS: ALB/GLOB Ratio 1.5 RATIO (0.9-2.4); AST(SGOT) 33 U/L (<=31); Alanine Aminotransfer ALT/SGPT 21 U/L (<=34); Albumin, Serum 4.5 g/dL (3.5-5.0); Alkaline Phosphatase 79 U/L (35-104); Anion Gap 13 (5-15); BUN 7 mg/dL (4-19); BUN/Creat Ratio 9.4 RATIO (10-20); Calcium,Total 9.8 mg/dL (7.6-11.0); Chloride 103 mmol/L (98-108); Creatinine, Serum 0.79 mg/dL (0.70-1.20); EST Glomerular Filtration Rate 99 (>60); Estimated Creatinine Clearance 97.51 ml/min (50-250); Glucose 90 mg/dL (70-99); Potassium 4.3 mmol/L (3.3-5.1); Protein, Total 7.4 g/dL (5.9-8.4); Sodium Level 136 mmol/L (133-145); Total Bilirubin 0.17 mg/dL (0.00-1.30)
[2025-03-02 16:40] LABS: Partial Thromboplast Time 23.3 Seconds (24.1-36.2)
[2025-03-02 16:43] LABS: Lactic Acid 1.8 mmol/L (0.0-2.0)
[2025-03-02] MEDS: Morphine 4 MG/ML Syringe IV (18:15)
[2025-03-02] MEDS: Orphenadrine 60 MG/2 ML Ampul IV (18:15)
[2025-03-02] MEDS: Acetaminophen 325 MG Tablet 650 MG PO (18:15)
[2025-03-02 18:19] VITALS: BP 105/65; PULSE 95; RESP 18; TEMP 36.7; O2SAT 96
== END 2025-03-02 19:00 | disposition home or self-care (01) ==
PROVIDERS: Emergency Provider Emergency Medicine; PCP Registered Nurse; Referring Provider Emergency Medicine; Visit Provider Emergency Medicine
DX: B34.9 Viral infection, unspecified (principal); S39.012A Strain of muscle, fascia and tendon of lower back, initial encounter; X58.XXXA Exposure to other specified factors, initial encounter; F17.210 Nicotine dependence, cigarettes, uncomplicated
CPT/HCPCS: 71046; 80053; 81001; 83605; 85025; 85610; 85730; 87040; 87086; 87088; 87631; 93005; 96374; 96375; 99283; A4216

== ENCOUNTER 2025-09-03 17:28 | Emergency (ER) | payer OTHER, SELFPAY ==
[2025-09-03 17:29] VITALS: BP 132/94; PULSE 116; RESP 16; TEMP 36.1; O2SAT 98; BMI 32.8
[2025-09-03] MEDS: Lidocaine 1% (20 ml mdv) 20 ML Vial INFILT (20:37)
--- NOTE | 2025-09-03 20:43 | EX.ED.GENINJ ---
HPI History of Present Illness Chief Complaint: Laceration Detail of Chief Complaint: Laceration superior right brow due to blunt trauma Informant: patient Onset/Context/Timing Onset: Hours Mechanism/Context: Blunt Injury Location of pain/injuries: - (Superior to the right brow) Quality of Pain: - (Not applicable) Current Severity: Gone Maximum Severity: Mild Worsened by: Initial injury Associated Symptoms Associated Symptoms: Negative for Parasthesias, Weakness, Loss of function, Inability to ambulate, Loss of consciousness or Amnesia Narrative Narrative: Patient is not on an anticoagulant or antithrombotic. She states she sustained blunt trauma to her forehead. She has a curvilinear gaping laceration above the right brow. She denies double vision blurred vision loss of vision. She denies headache. She denies nausea or vomiting. She has no other complaints. Prior similar symptoms: No Recent Illness/Hospitalization: No PFSH PFSH Medical History Acid reflux Chronic neck and back pain Severe headache Endometriosis Ectopic History of PCOS History of ovarian cyst Home Medications ?Medication ?Instructions ?Recorded ?Last Taken ?Type metformin 500 mg tablet 500 mg PO DAILY 04/14/24 Unknown History spironolactone 50 mg tablet 50 mg PO BID 04/14/24 Unknown History carbamazepine 100 mg 100 mg PO BID #20 tabs 01/11/25 Unknown Rx tablet,extended release,12 hr rosuvastatin 5 mg tablet (Crestor) 10 mg PO DAILY 01/11/25 Unknown History orphenadrine citrate 100 mg 100 mg PO Q12H PRN muscle pain #14 03/02/25 Unknown Rx tablet,extended release tabs estradiol 0.075 mg/24 hr 1 patch transdermal 2XW #8 ea 06/29/25 Unknown Rx semiweekly transdermal patch (Vivelle-Dot) Allergy/AdvReac Type Severity Reaction Status Date / Time Sulfa (Sulfonamide Allergy Mild Rash Verified 09/03/25 17:29 Antibiotics) clindamycin Allergy Rash Verified 09/03/25 17:29 Family History Grandfather Diabetes Heart disease Surgical History H/O unilateral oophorectomy (~01/30/21) History of right oophorectomy History of LAVH [place] teeth extracted History of laparoscopy Social History household members: family and children housing: house current occupational status: employed Smoking Status: Current every day smoker tobacco type: cigarettes alcohol intake: former details: social substance use type: does not use caffeine: Yes what type of physical activity do you participate in: none seatbelt use: always do you feel safe at home: Yes 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 ROS ROS ED Musculoskeletal Musculoskeletal: Denies neck pain Integumentary Reports other Details: Forehead laceration Neurologic Neurologic: Denies headache(s), paresthesias or weakness Hematologic/Lymphatic Hematologic/Lymphatic: Denies easy bleeding or easy bruising EXAM Physical Exam Const Vital Signs: 09/03/25 17:29 09/03/25 20:12 Temperature 96.9 F L Temperature Source Temporal Pulse Rate 116 H Respiratory Rate 16 Respiratory Effort Normal Non-Labored Blood Pressure 132/94 H Blood Pressure Mean 106 Pulse Ox 98 Oxygen Delivery Method Room Air Room Air Positive well nourished and well developed General Appearance ED: well developed and NAD HEENT HEENT Narrative: Curvilinear gaping laceration above the right brow. This is approximately 1.2 cm in length. There is no palpable depression. There is no step-off with palpation of the superior orbital rim. There is no bruising noted Eyes PERRL and EOMs intact bilaterally General Eye ED: Yes other Other Details: There is no subconjunctival hemorrhage. Is no evidence of entrapment. Neck full ROM Resp normal respiratory effort Cardio regular rhythm Rate: regular rate Neuro oriented x3, CN's II-XII intact bilaterally and moves all extremities Julissa Coma Scale: document GCS findings Spontaneous Obeys Commands Oriented 15 Sensorium / Orientation: alert Psych mental status grossly normal and thought process normal Skin Skin Narrative: Laceration forehead above the right brow PROC Procedures Other Procedures Procedure(s): Patient's wound was cleansed by me. There is no signs of wound to lidocaine by local filtration. Using 6-0 Ethilon total of 3 simple interrupted sutures was placed. This approximated the wound nicely. Initial thought was to use adhesive glue however applying pressure to 1 area of the of the lack caused the other area to gape more. Patient was informed of this and reason why I recommended suturing. MDM MDM MDM Narrative Medical decision making narrative: Per the case CT head rule imaging is not indicated. Patient has laceration which require surgical repair versus adhesive glue. Discharge Plan Triage Chief Complaint: Laceration Other Complaint: Head Injury ED Provider: Carmelo Rodriguez Dx/Rx/DC Orders Clinical Impression: Forehead laceration, Blunt trauma of forehead, Elevated blood pressure reading without diagnosis of hypertension, Tachycardia Instructions: ED Hypertension, To Be Confirmed, ED Laceration, All Closures, ED Laceration Minimize Scars Prescriptions: No Action metformin 500 mg tablet 500 mg PO DAILY spironolactone 50 mg tablet 50 mg PO BID rosuvastatin [Crestor] 5 mg tablet 10 mg PO DAILY carbamazepine 100 mg tablet extended release 12 hr 100 mg PO BID Qty: 20 0RF orphenadrine citrate 100 mg tablet extended release 100 mg PO Q12H PRN (Reason: muscle pain) Qty: 14 0RF estradiol [Vivelle-Dot] 0.075 mg/24 hr patch semiweekly 1 patch transdermal 2XW Qty: 8 2RF Rx Instructions: apply 1 patch for 3 days alternating with 1 patch for 4 days each week Primary Care Provider: Radha Garduno NP Referrals: Radha Garduno NP, [employer] [facility] [Primary Care Provider, Medical] - 5 Days for suture removal Activity Restrictions/Additional Instructions: Have stitches removed in 5 days. This will minimize the segura from the stitches. Print Language: Slovenian Disposition Disposition: Home, Self Care
[2025-09-03 20:57] VITALS: BP 132/94; PULSE 116; RESP 16; TEMP 36.1; O2SAT 98
== END 2025-09-03 21:11 | disposition home or self-care (01) ==
LOC: ED 20:59
PROVIDERS: Emergency Provider Emergency Medicine; PCP Registered Nurse; Visit Provider Emergency Medicine
DX: S01.111A Laceration without foreign body of right eyelid and periocular area, initial encounter (principal); R03.0 Elevated blood-pressure reading, without diagnosis of hypertension; F17.210 Nicotine dependence, cigarettes, uncomplicated; R00.0 Tachycardia, unspecified; Z90.721 Acquired absence of ovaries, unilateral; X58.XXXA Exposure to other specified factors, initial encounter
CPT/HCPCS: 12011; 99283

== ENCOUNTER 2025-10-06 15:36 | Emergency (ER) | payer OTHER, SELFPAY ==
[2025-10-06 15:37] VITALS: BP 125/90; PULSE 106; RESP 18; TEMP 36.5; O2SAT 100; BMI 32.6
[2025-10-06 15:57] LABS: Mucous, Urine 0 SEEN /hpf (<or=2+)
[2025-10-06 16:07] LABS: Color, Urine Yellow (Yellow); Glucose, Dipstick Normal (Normal); Ketone-Dipstick 15 mg/dl (Negative); Leukocyte Esterase-Dipstick Negative /ul (Negative); Nitrite-Dipstick Negative (Negative); Occult Blood-Urine 10 /ul (Negative); Protein-Dipstick Negative (Negative); Specific Gravity, Urine 1.025 (1.002-1.030); Urine Bilirubin Dipstick Negative (Negative)
[2025-10-06 16:16] LABS: Internal QC Validated? YES +Cl - CLEAR BKGD; Pregnancy, Serum, hCG Quali. NEGATIVE Negative
[2025-10-06 16:29] LABS: Hematocrit 43.5 % (37-47); Hemoglobin 15.0 g/dL (12.0-15.0); Immature Granulocytes Count 0.060 X10^3/uL (0.0-0.0); Mean Corp Hgb Conc 34.5 g/dL (32-36); Mean Corpuscular Volume 90.1 fL (81-99); Mean Platelet Vol. 10.3 fl (6.2-12.0); NRBC Flagged by Analyzer 0 % (0-5); Platelet Count 366 K/mm3 (150-450); RBC Distribution Width CV 13.2 % (11.6-14.6); RBC Distribution Width SD 43.1 fl (35.1-43.9); Red Blood Count 4.83 M/mm3 (4.2-5.4); White Blood Count 12.2 K/mm3 (4.4-11.0)
[2025-10-06 16:57] LABS: Red Blood Cells-Urine 0-5 SEEN /hpf (0-5); Squamous Epithelial Cells - UA 0-5 SEEN /hpf (5-10)
--- OUTSIDE RECORDS SUMMARY | 2025-10-06 16:57 | XMS RPT_ITS | CCD ---
Author Organization [facility] Care Team Providers Care Respiratory Support Technician Name Role Phone Unavailable Primary Care Provider UnavailDr. Hollie Jimenez Primary Care Provider Dr. Hollie Ballard Referring Provider Gerard MORRIS, ALEXANDRA-C Nay Attending Provider Hollie Ballard MD Primary Care Provider Hollie Ballard MD Primary Care Provider HOLLIE BALLARD MD Primary Care Physician HOLLIE BALLARD MD Primary Care Unavailable TRESSA VERA Attending Unavailable BETHANY PAZ Attending Unavailable HOLLIE BALLARD MD Primary Care Unavailable Hollie Ballard MD Primary Care Provider Hollie Ballard MD Primary Care Provider Haagen CARD CLOTHIER.Radha FOUNTAIN Unavailable Suppan CARD CLOTHIER.ESSIE, Syl A Unavailable Suppan CARD CLOTHIER.FRANCHISE DEVELOPMENT MANAGER, Syl A Unavailable [phone] VISHNU MOLINA Referring Unavailable HERLINDA ALMANZA Attending Unavailable PROVIDER, UNKNOWN Primary Care Unavailable PROVIDER, UNKNOWN Primary Care Unavailable MAGGY HAYES Referring Unavailable CLARITA ABREU Attending Unavailable CLARITA ABREU Admitting Unavailable PROVIDER, UNKNOWN Primary Care Unavailable Suppan CARD CLOTHIER.ESSIE, Syl A Unavailable [phone] Dr. Hollie Ballard MD Primary Care Provider Dr. Hollie Ballard MD Referring Provider Gita MORRIS-Reji Flowers Attending Provider Raleigh Escoto MD Emergency Provider Laureen AGEEC, Radha Primary Care Provider DAR VERMA Attending Unavailable DAR VERMA Admitting Unavailable [facility] Primary Care Unavailable DAR VERMA Attending Unavailable [facility] Primary Care Unavailable DAR VREMA Attending Unavailable [facility] Primary Care Unavailable [facility] Primary Care Unavailable DAR VERMA Attending Unavailable MAIKEL HECTOR Attending Unavailable [facility] Primary Care Unavailable VETOVITZ, MAGGY Referring Unavailable [facility] Primary Care Unavailable SYL TAI Attending Unavailable O'KEVIN, MACEY Attending Unavailable [facility] Primary Care Unavailable VETOVITZ, MAGGY Referring Unavailable [facility] Primary Care Unavailable VETOVITZ, MAGGY Referring Unavailable O'KEVIN, MACEY Attending Unavailable [facility] Primary Care Unavailable O'KEVIN, MACEY Attending Unavailable [facility] Primary Care Unavailable VETOVITZ, MAGGY Referring Unavailable O'KEVIN, MACEY Attending Unavailable [facility] Primary Care Unavailable VETOVITZ, MAGGY Referring Unavailable MAIKEL HECTOR Attending Unavailable [facility] Primary Care Unavailable O'KEVIN, MACEY Attending Unavailable [facility] Primary Care Unavailable VETOVITZ, MAGGY Referring Unavailable RADHA GARDUNO Attending Unavailable [facility] Eunice Primary Care Unavailable RADHA GARDUNO Attending Unavailable [facility] Eunice Primary Care Unavailable VETOVITZ, MAGGY Referring Unavailable [facility] Primary Care Unavailable VETOVITZ, MAGGY Attending Unavailable [facility] Primary Care Unavailable O'KEVIN, MACEY Attending Unavailable VETOVITZ, MAGGY Referring Unavailable O'KEVIN, MACEY Attending Unavailable VETOVITZ, MAGGY Referring Unavailable [facility] Primary Care Unavailable [facility] Primary Care Unavailable VETOVITZ, MAGGY Referring Unavailable O'KEVIN, MACEY Attending Unavailable O'KEVIN, MACEY Attending Unavailable [facility] Primary Care Unavailable VETOVITZ, MAGGY Referring Unavailable O'KEVIN, MACEY Attending Unavailable [facility] Primary Care Unavailable VETOVITZ, MAGGY Referring Unavailable NELLIE, HOLLIE Dawson Primary Care Unavailable VETOVITZ, MAGGY Referring Unavailable O'KEVIN, MACEY Attending Unavailable NELLIE, HOLLIE Dawson Primary Care Unavailable VETOVITZ, MAGGY Referring Unavailable O'KEVIN, MACEY Attending Unavailable NELLIE, HOLLIE Dawson Primary Care Unavailable VETOVITZ, MAGGY Referring Unavailable NELLIE, HOLLIE Dawson Primary Care Unavailable VETOVITZ, MAGGY Referring Unavailable O'KEVIN, MACEY Attending Unavailable NELLIE, HOLLIE Dawson Primary Care Unavailable VETOVITZ, MAGGY Referring Unavailable NELLIE, HOLLIE Dawson Primary Care Unavailable DAR VERMA Referring Unavailable O'KEVIN, MACEY Attending Unavailable ARA CRAWFORD Attending Unavailabl e NELLIE, HOLLIE Dawson Primary Care Unavailable O'KEVIN, MACEY Attending Unavailable NELLIE, HOLLIE Dawson Primary Care Unavailable VETOVITZ, MAGGY Referring Unavailable NELLIE, HOLLIE Dawson Primary Care Unavailable SYL TAI Attending Unavailable MAIKEL HECTOR Referring Unavailable NELLIE, HOLLIE Dawson Primary Care Unavailable NELLIE, HOLLIE Dawson Primary Care Unavailable VETOVITZ, MAGGY Attending Unavailable NELLIE, HOLLIE Dawson Primary Care Unavailable BERNABE ISLAS Attending Unavailable O'KEVIN, MACEY Attending Unavailable NELLIE, HOLLIE Dawson Primary Care Unavailable VETOVITZ, MAGGY Referring Unavailable NELLIE, HOLLIE Dawson Primary Care Unavailable VETOVITZ, MAGGY Referring Unavailable NELLIE, HOLLIE Dawson Primary Care Unavailable VETOVITZ, MAGGY Referring Unavailable O'KEVIN, MACEY Attending Unavailable NELLIE, HOLLIE Dawson Primary Care Unavailable SYL TAI Referring Unavailable NELLIE, HOLLIE Dawson Primary Care Unavailable SYL TAI Referring Unavailable RADHA GARDUNO Referring Unavailable NELLIE, HOLLIE Dawson Primary Care Unavailable VETOVITZ, MAGGY Attending Unavailable NELLIE, HOLLIE Dawson Primary Care Unavailable RADHA GARDUNO Referring Unavailable NELLIE, HOLLIE Dawson Primary Care Unavailable ALEXANDER DICKEY Referring Unavailab le NELLIE, HOLLIE Dawson Primary Care Unavailable ALEXANDER DICKEY Attending Unavailab le NELLIE, HOLLIE Dawson Primary Care Unavailable VETOVITZ, MAGGY Referring Unavailable NELLIE, HOLLIE Dawson Primary Care Unavailable NELLIE, HOLLIE Dawson Primary Care Unavailable SYL TAI Attending Unavailable CHRISTIAN VALDES Attending Unavailable HOLLIE BALLARD Primary Care Unavailable HOLLIE BALLARD Primary Care Unavailable NAY REINOSO Attending HOLLIE Aguilar Primary Care Unavailable DAR VERMA Referring Unavailable MAIKEL HECTOR Referring Unavailable HOLLIE BALLARD Primary Care Unavailable Carmelo Rodriguez Attending Unavailable Laureen ACCOUNTS PAYABLE TECHNICIAN, Radha Primary Care Unavailable Laureen ACCOUNTS PAYABLE TECHNICIAN, Radha Primary Care Unavailable Atilio Hall Referring Unavailable Atilio Hall Attending Unavailable Laureen ACCOUNTS PAYABLE TECHNICIAN, [facility] Primary Care Unavailable Raleigh Escoto Attending Unavailable Reji Pelayo NP Attending Unavailable Hollie Ballard Referring Unavailable Hollie Ballard Primary Care Unavailable Allergies Allergy Classification Reported Allergen(s) Allergy Type Date of Onset Reaction(s) Facility (20 sources) Clindamycin; Translations: [CLINDAMYCIN] Drug Allergy 1 [facility] Work Phone: (20 sources) Sulfonamides (Antibiotic); Translations: [SULFA (SULFONAMIDE ANTIBIOTICS)] Allergy to substance 1 [facility] Work Phone: (1 source) Clindamycin Drug Allergy 5 [facility] Medications Current Medications Medication Drug Class(es) Dates Sig (Normalized) Sig (Original) amitriptyline hydrochloride 10 mg oral tablet (20 sources) Tricyclic Antidepressant Start: 09-30-2022 End: 11-27-2024 take 1 tablet by mouth once daily Amitriptyline 25 mg tablet Discontinued 25 mg PO DAILY September 30, 2022 1:00am November 27, 2024 9:22am Start: 06-24-2022 End: 09-27-2023 take 1 tablet by mouth once daily at bedtime amitriptyline (ELAVIL) 10 mg tablet Indications: 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 30 tablet 2 09/28/2023 Active Comment on above: Take 1 tablet by oskar th daily at bedtime. amoxicillin 875 mg / clavulanate 125 mg oral tablet (13 sources) Penicillin-class Antibacterial Start: End: take 1 tablet by mouth every twelve hours amoxicillin-clavul anate potassium (AUGMENTIN) 875-125 mg per tablet Indications: Chronic maxillary sinusitis Take 1 tablet by mouth every 12 hours for 10 days. 20 tablet 02/09/2025 02/19/2025 Active Start: 12-05-2024 End: 12-12-2024 take 1 tablet by mouth twice daily amoxicillin-clavulanate potassium (AUGMENTIN) 875-125 mg per tablet Indications: Bronchitis Take 1 tablet by mouth two times a day for 7 days. 14 tablet 12/05/2024 12/12/2024 Active Start: 10-06-2021 End: 10-16-2021 Amoxicillin-Pot Clavulanate (Augmentin) 875-125 mg tablet Discontinued 1 {tbl} PO TWICE A DAY 21 08October 06, 2021 1:00am October 15, 2021 1:00am October 16, 2021 1:01am Start: 08-19-2021 End: 08-29-2021 Amoxicillin-Pot Clavulanate (Augmentin) 875-125 mg tablet Discontinued 1 {tbl} PO Q12H 21 08August 19, 2021 12:00am August 28, 2021 12:00am August 29, 2021 12:01am aspirin 81 mg delayed release oral tablet (12 sources) Platelet Aggregation Inhibitor, Nonsteroidal Anti-inflammatory Drug Start: 04-27-2025 End: 05-18-2025 take 1 tablet by mouth twice daily aspirin, enteric coated (ECOTRIN LOW STRENGTH) 81 mg EC tablet Take 1 tablet by mouth two times a day for 21 days. TO BEGIN 24 HOURS POST OP Patient should start on April 27, 2025. 42 tablet 04/27/2025 Active benzonatate 100 mg oral capsule (4 sources) Non-narcotic Antitussive Start: 11-30-2024 End: 12-10-2024 take 1 capsule by mouth three times daily as needed benzonatate (TESSALON PERLE) 100 mg capsule Indications: Viral URI with cough Take 1 capsule by mouth three times a day as needed for up to 10 days. 30 capsule 11/30/2024 12/10/2024 Active 12 hr carBAMazepine 100 mg extended release oral tablet (1 source) Mood Stabilizer Start: 01-11-2025 take 1 tablet by mouth twice daily Carbamazepine 100 mg tablet extended release 12 hr Active 100 mg PO TWICE A DAY January 11, 2025 12:00am cholecalciferol 0.05 mg oral capsule (12 sources) Vitamin D Start: 01-21-2022 take 50 ug by mouth once daily Cholecalciferol (Vitamin D3) Active 50 MCG PO DAILY January 21, 2022 1:41pm Start: 01-06-2022 End: 04-20-2023 take 1 capsule by mouth once daily Cholecalciferol, Vitamin D3, 125 mcg (5,000 unit) cap Indications: Vitamin D deficiency Take 1 capsule by mouth once daily. 90 capsule 0 01/06/2022 04/20/2023 Discontinued Comment on above: Take 1 capsule by mo [facility] once daily. codeine phosphate 2 mg/ml / guaiFENesin 20 mg/ml oral solution (4 sources) Opioid Agonist Start: 01-07-20 End: 01-14-20 take 10 mL by mouth three times daily as needed for cough codeine-guaiFENesin (ROBITUSSIN AC) 10-100 mg/5 mL syrup Indications: Sinobronchitis Take 10 mL by mouth three times a day as needed for cough for up to 7 days. 210 mL 01/06/2025 01/13/2025 Active diclofenac sodium 75 mg delayed release oral tablet (3 sources) Nonsteroidal Anti-inflammatory Drug Start: 04-29-20 End: 05-13-20 take 1 tablet by mouth twice daily for pain diclofenac, EC, (VOLTAREN) 75 mg EC tablet Take 1 tablet by mouth two times a day for 14 days. for pain. Patient should start on April 29, 2025. 28 tablet 04/29/2025 05/13/2025 Active docusate sodium 100 mg oral capsule (13 sources) Start: 04-26-20 take 1 capsule by mouth twice daily docusate sodium (COLACE) 100 mg capsule Take 1 capsule by mouth two times a day. 60 capsule 04/26/2025 Active estradiol 1 mg oral tablet (20 sources) Estrogen Start: 09-30-20 End: 04-14-20 estradiol (ESTRACE) 1 mg tablet 06/04/2023 Active Start: 01-21-2022 End: 04-14-2024 take 1 tablet by mouth once daily Estradiol 2 mg tablet Discontinued 2 mg PO DAILY May 19, 2022 12:00am April 14, 2024 2:44pm Start: 01-30-2021 End: 01-21-2022 take 1 tablet by mouth once daily Estradiol 1 MG tablet Discontinued 1 mg PO DAILY January 30, 2021 12:00am January 21, 2022 1:49pm Comment on above: Take 2 mg by mouth o nce daily. etodolac 400 mg oral tablet (2 sources) Nonsteroidal Anti-inflammatory Drug Start: 09-30-20 End: 10-30-20 take 1 tablet by mouth twice daily etodolac (LODINE) 400 mg tablet Indications: Pain of left hip Take 1 tablet by mouth two times a day. 60 tablet 09/30/2024 10/30/2024 Active fluconazole 150 mg oral tablet (1 source) Azole Antifungal Start: 01-07-20 End: 01-07-20 fluconazole (DIFLUCAN) 150 mg tablet Indications: Vaginal yeast infection Take 1 tablet by mouth one time only for 1 dose. Repeat in 3 days as needed. 2 tablet 01/06/2025 01/06/2025 Active gabapentin 300 mg oral capsule (20 sources) Anti-epileptic Agent Start: 02-10-20 End: 08-08-20 take 1 capsule by mouth three times daily gabapentin (NEURONTIN) 300 mg capsule Indications: Trigeminal neuralgia Take 1 capsule by mouth three times a day for 180 days. 90 capsule 5 02/09/2025 08/08/2025 Active 24 hr metFORMIN hydrochloride 500 mg extended release oral tablet (20 sources) Biguanide Start: 04-14-20 take 1 tablet by mouth once daily Metformin 500 mg tablet Active 500 mg PO DAILY April 14, 2024 12:00am Start: 08-28-2023 End: 12-15-2024 take 1 tablet by mouth once daily at breakfast metFORMIN ER (GLUCOPHAGE XR) 500 mg 24 hr tablet Take 1 tablet by mouth daily with breakfast. 30 tablet 12/15/2024 Active Comment on above: Take 1 tablet by oskar th daily with breakfast. methocarbamol 500 mg oral tablet (1 source) Muscle Relaxant Start: 2024 End: 2024 take 1 tablet by mouth every six hours as needed methocarbamol (ROBAXIN) 500 mg tablet Take 1 tablet by mouth four times a day as needed (muscle spasms) for up to 7 days. 28 tablet 04/26/2025 05/03/2025 Active methylPREDNISolone (1 source) Corticosteroid Start: 2022 End: 2022 methylPREDNISolone (MEDROL, NIKKI,) 4 mg Dose-Pack Follow dosing instructions, take with food. 21 tablet 0 02/05/2023 02/11/2023 Active Comment on above: Follow dosing instru ctions, take with food. omeprazole 40 mg delayed release oral capsule (20 sources) Proton Pump Inhibitor Start: 2024 take 1 capsule by mouth once daily omeprazole (PRILOSEC) 40 mg capsule Indications: Gastroesophageal reflux disease, unspecified whether esophagitis present Take 1 capsule by mouth once daily. 30 capsule 11 03/20/2025 Active Start: 01-25-2024 End: 03-17-2025 take 1 capsule by mouth once daily omeprazole (PRILOSEC) 40 mg capsule Indications: Gastroesophageal reflux disease, unspecified whether esophagitis present Take 1 capsule by mouth once daily. 30 capsule 2 01/25/2024 03/17/2025 Discontinued Start: 12-15-2023 End: 01-25-2024 take 1 capsule by mouth once daily before breakfast omeprazole (PRILOSEC) 20 mg capsule Indications: Pain of upper abdomen Take 1 capsule by mouth daily before breakfast. 1/2 hr before meal. 30 capsule 1 12/15/2023 01/25/2024 Discontinued (Dosage adjustment) Comment on above: Take 1 capsule by mo ut daily before breakfast. 1/2 hr before meal. Take 1 capsule by mo uth once daily. ondansetron 4 mg oral tablet (20 sources) Serotonin-3 Receptor Antagonist Start: take 1 tablet by mouth every eight hours as needed ondansetron (ZOFRAN) 4 mg tablet Take 1 tablet by mouth every 8 hours as needed for nausea/vomiting. 15 tablet 04/26/2025 Active Start: 08-27-2022 End: 09-30-2022 take 2 tablets by mouth every eight hours as needed for nausea Ondansetron 4 mg tablet,disintegrating Discontinued 8 mg PO EVERY 8 HOURS NEEDED as needed for Nausea August 27, 2022 12:00am September 30, 2022 9:08am Start: 08-27-2022 End: 09-30-2022 take 8 mg by mouth every eight hours as needed Ondansetron Discontinued 8 MG PO EVERY 8 HOURS NEEDED August 27, 2022 12:00am September 30, 2022 9:08am Start: 09-29-2020 End: 11-09-2020 take 1 tablet by mouth every eight hours as needed for nausea Ondansetron 4 mg tablet,disintegrating Discontinued 4 mg PO EVERY 8 HOURS NEEDED as needed for Nausea October 23, 2020 3:56pm November 09, 2020 10:51am Start: 05-23-2019 End: 07-28-2019 take 1 tablet by mouth every eight hours as needed for nausea Ondansetron 4 MG tablet Discontinued 4 mg PO EVERY 8 HOURS NEEDED as needed for Nausea May 23, 2019 12:00am July 28, 2019 11:20am oxyCODONE hydrochloride 5 mg oral tablet (6 sources) Opioid Agonist Start: 04-26-2025 End: 05-01-2025 take 1 tablet by mouth every eight hours as needed for pain oxyCODONE IR (ROXICODONE) 5 mg immediate release tablet Indications: Post-op pain Take 1 tablet by mouth every 8 hours as needed for pain (severe post operative pain) for up to 5 days. for pain. 15 tablet 04/26/2025 05/01/2025 Active Start: 01-30-2021 End: 02-06-2021 take 1 tablet by mouth every six hours as needed for pain Oxycodone 5 MG tablet Discontinued 5 mg PO EVERY 6 HOURS NEEDED as needed for Pain Score 6-10/10 15 7 January 30, 2021 February 05, 2021 12:00am February 06, 2021 12:04am perflutren lipid microspheres 1.3 mL in NaCl (PF) 0.9% 10 mL injection (DEFINITY) (12 sources) Start: 01-21-2022 End: 04-22-2023 perflutren lipid microspheres 1.3 mL in NaCl (PF) 0.9% 10 mL injection (DEFINITY) predniSONE 20 mg oral tablet (20 sources) Start: 01-06-2025 End: 01-11-2025 take 2 tablets by mouth once daily predniSONE (DELTASONE) 20 mg tablet Indications: Sinobronchitis Take 2 tablets by mouth once daily for 5 days. 10 tablet 01/06/2025 01/11/2025 Active Start: 12-05-2024 End: 12-17-2024 predniSONE (DELTASONE) 10 mg tablet Indications: Bronchitis Take 4 tabs daily x 3 days, then 3 tabs x 3 days, 2 tabs x 3 days, then 1 tab x3 days with food. 30 tablet 12/05/2024 12/17/2024 Active Start: 09-08-2024 End: 12-05-2024 predniSONE (DELTASONE) 10 mg tablet Indications: Pain of left hip 6 tabs po day 1 and 2, then 5 tabs day 3 and 4, 4 tabs day 5 and 6, 3 tabs day 7 and 8, 2 tabs day 9 and 10, 1 tab day 11 and 12. 42 tablet 09/08/2024 12/05/2024 Discontinued Start: 05-02-2024 End: 05-14-2024 predniSONE (DELTASONE) 10 mg tablet Take 4 tabs daily x 3 days, then 3 tabs x 3 days, 2 tabs x 3 days, then 1 tab x3 days with food. 30 tablet 05/02/2024 05/14/2024 Start: 01-26-2023 End: 02-01-2023 take 4 tablets by mouth once daily, then take 2 tablets by mouth once daily, then take 1 tablet by mouth once daily predniSONE (DELTASONE) 10 mg tablet Indications: Acute hip pain, left Take 4 tablets by mouth once daily for 2 days, THEN 2 tablets once daily for 2 days, THEN 1 tablet once daily for 2 days. Take with food.. 14 tablet 0 01/26/2023 02/01/2023 Active Comment on above: Take 4 tablets by [facility] once daily for 2 days, THEN 2 tablets once daily for 2 days, THEN 1 tablet once daily for 2 days. Take with food.. 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 May repeat in 2 hours if needed 6 tablet 2 01/05/2023 Active Comment on above: Take 1 tablet by oskar th as needed. May repeat in 2 hours if needed rosuvastatin calcium 5 mg oral tablet (20 sources) HMG-CoA Reductase Inhibitor Start: End: 5 take 2 tablets by mouth once daily at bedtime rosuvastatin (CRESTOR) 5 mg tablet Indications: Mixed hyperlipidemia Take 2 tablets by mouth daily at bedtime. 180 tablet 3 12/17/2023 Active Start: 08-03-2023 End: 12-17-2023 take 1 tablet by mouth once daily at bedtime rosuvastatin (CRESTOR) 5 mg tablet Indications: Mixed hyperlipidemia Take 1 tablet by mouth daily at bedtime. 30 tablet 2 08/03/2023 12/17/2023 Discontinued Comment on above: Take 1 tablet by oskar th daily at bedtime. Take 2 tablets by mo uth daily at bedtime. 125 ml sodium chloride 9 mg/ml prefilled syringe (12 sources) Start: 01-22-20 End: 04-22-20 sodium chloride 0.9 % (flush) 10 mL (BD POSIFLUSH) spironolactone 50 mg oral tablet (20 sources) Aldosterone Antagonist Start: 10-19-20 End: 12-15-19 take 1 tablet by mouth twice daily spironolactone (ALDACTONE) 50 mg tablet Indications: PCOS (polycystic ovarian syndrome) Take 1 tablet by mouth two times a day. 60 tablet 12/15/2024 Active Start: 08-25-2023 take 1 tablet by oskar th twice daily spironolactone (ALDACTONE) 25 mg tablet Indications: PCOS (polycystic ovarian syndrome) Take 1 tablet by mouth two times a day. 60 tablet 5 08/25/2023 Active Comment on above: Take 1 tablet by oskar th two times a day. traMADol hydrochloride 50 mg oral tablet (6 sources) Opioid Agonist Start: 08-26-2022 End: 08-31-2022 Ultram 50 mg oral tablet Dose : 50 mg = 1 tab(s), Oral, q12hr, X 5 day(s), # 10 tab(s), 0 Refill(s), 08/31/22 9:41:00 EDT, Left flank pain Pelvic girdle pain, 78 Start Date: 08/26/22 Stop Date: 08/31/22 Status: Ordered Start: 01-04-2022 End: 01-21-2022 take 1 tablet by mouth every four hours as needed for pain Tramadol 50 MG tablet Discontinued 50 mg PO EVERY 4 HOURS NEEDED as needed for Pain 12 2 January 04, 2022 1:00am January 21, 2022 1:41pm Vitamin D3 (with calcium carb) (1 source) Start: 05-19-2022 take 1 tablet by mouth once daily Vitamin D3 (with calcium carb) Active 1 TABLET SL/PO DAILY May 19, 2022 12:00am Vitamin D3 125 mcg (5000 intl units) oral capsule (2 sources) Start: 08-26-2022 Vitamin D3 125 mcg (5000 intl units) oral capsule 0 Refill(s) Start Date: 08/26/22 Status: Ordered Completed/Discontinued Medications Medication Drug Class(es) Dates Sig (Normalized) Sig (Original) acetaminophen 325 mg / HYDROcodone bitartrate 5 mg oral tablet (20 sources) Opioid Agonist Start: 09-29-2020 End: 10-02-2020 Hydrocodone-Acetami nophen 1 TABLET tablet Discontinued 1 {tbl} PO EVERY 6 HOURS NEEDED as needed for Pain 10 September 29, 2020 October 01, 2020 1:00am October 02, 2020 1:02am Start: 09-29-2020 End: 10-02-2020 take 1 tablet by mouth every six hours as needed Hydrocodone-Acetaminophen Discontinued 1 TABLET PO EVERY 6 HOURS NEEDED 10 September 29, 2020 October 02, 2020 1:02am Start: 03-02-2020 End: 03-04-2020 Hydrocodone-Acetaminophen 1 TABLET tablet Discontinued 1 {tbl} PO EVERY 4 HOURS NEEDED as needed for Pain 10 2 May 1st, 2020 May 2nd, 2020 12:00am March 04, 2020 12:02am Start: 03-02-2020 End: 03-04-2020 take 1 tablet by mouth every four hours as needed Hydrocodone-Acetaminophen Discontinued 1 TABLET PO EVERY 4 HOURS NEEDED 10 March 02, 2020 March 04, 2020 12:02am Start: 02-25-2019 End: 02-28-2019 Hydrocodone-Acetaminophen 1 TABLET tablet Discontinued 1 {tbl} PO EVERY 6 HOURS NEEDED as needed for Pain 10 February 25, 2019 12:00am February 27, 2019 12:00am February 28, 2019 12:10am Start: 02-25-2019 End: 02-28-2019 take 1 tablet by mouth every six hours as needed Hydrocodone-Acetaminophen Discontinued 1 TABLET PO EVERY 6 HOURS NEEDED 10 February 25, 2019 12:00am February 28, 2019 12:10am Start: 12-15-2018 End: 12-18-2018 Hydrocodone-Acetaminophen 1 TABLET tablet Discontinued 1 {tbl} PO EVERY 6 HOURS NEEDED as needed for Pain 10 December 15, 2018 1:00am December 17, 2018 1:00am December 18, 2018 1:13am Start: 12-15-2018 End: 12-18-2018 take 1 tablet by mouth every six hours as needed Hydrocodone-Acetaminophen Discontinued 1 TABLET PO EVERY 6 HOURS NEEDED 10 December 15, 2018 1:00am December 18, 2018 1:13am acetaminophen 325 mg / oxyCODONE hydrochloride 5 mg oral tablet (20 sources) Opioid Agonist Start: 01-11-2021 End: 01-28-2021 take 1 tablet by mouth every four hours for pain Oxycodone-Acetaminophen (Percocet) 5-325 mg tablet Discontinued 1 {tbl} PO Q4H as needed for pain 5 January 11, 2021 January 28, 2021 1:31pm take one 1 hour before procedure and bring additional pills to office Start: 10-24-2020 End: 10-31-2020 Oxycodone-Acetaminophen 1 TA BLET tablet Discontinued 1 - 2 {tbl} PO EVERY 6 HOURS NEEDED as needed for Pain 15 October 24, 2020 October 30, 2020 1:00am October 31, 2020 1:02am Start: 10-24-2020 End: 10-31-2020 take 1 tablet by mouth every six hours as needed Oxycodone-Acetaminophen Discontinued 1 - 2 TABLET PO EVERY 6 HOURS NEEDED 16 05October 24, 2020 October 31, 2020 1:02am Start: 12-06-2019 End: 12-13-2019 Oxycodone-Acetaminophen 1 TA BLET tablet Discontinued 1 - 2 {tbl} PO EVERY 6 HOURS NEEDED as needed for Pain 16 05December 06, 2019 December 12, 2019 1:00am December 13, 2019 1:08am Start: 12-06-2019 End: 12-13-2019 take 1 tablet by mouth every six hours as needed Oxycodone-Acetaminophen Discontinued 1 - 2 TABLET PO EVERY 6 HOURS NEEDED 16 05December 06, 2019 December 13, 2019 1:08am [id number] 200 actuat albuterol 0.09 mg/actuat metered dose inhaler (7 sources) beta2-Adrenergic Agonist Start: 11-30-2024 End: 12-20-2024 take 2 puff(s) by inhalation every four hours as needed for wheezing albuterol HFA (PROVENTIL HFA, VENTOLIN HFA) 90 mcg/actuation inhaler Indications: Bronchitis Inhale 2 Puffs as instructed every 4 hours as needed for wheezing/shortness of breath. 1 Each 11/30/2024 12/20/2024 Discontinued amoxicillin 500 mg oral capsule (5 sources) Penicillin-class Antibacterial Start: 10-27-2019 End: 11-06-2019 take 2 capsules by mouth twice daily Amoxicillin 500 mg capsule Discontinued 1000 mg PO TWICE A DAY 40 October 27, 2019 1:00am November 05, 2019 1:00am November 06, 2019 1:08am Start: 10-27-2019 End: 11-06-2019 take 1000 mg by mouth twice daily Amoxicillin Discontinued 1000 MG PO TWICE A DAY 40 October 27, 2019 1:00am November 06, 2019 1:08am atorvastatin 20 mg oral tablet (20 sources) HMG-CoA Reductase Inhibitor Start: 04-16-2022 End: 01-11-2025 take 1 tablet by mouth at bedtime Atorvastatin 20 mg tablet Discontinued 20 mg PO AT BEDTIME May 19, 2022 12:00am January 11, 2025 4:57pm Comment on above: Take 1 tablet by oskar th daily at bedtime. For cholesterol. cephalexin 500 mg oral capsule (1 source) Cephalosporin Antibacterial Start: 07-27-2023 End: 08-03-2023 take 1 capsule by mouth three times daily cephALEXin (KEFLEX) 500 mg capsule Indications: Carbuncle, breast Take 1 capsule by mouth three times daily for 7 days. 21 capsule 0 07/27/2023 08/03/2023 Comment on above: Take 1 capsule by [facility] three times daily for 7 days. cyclobenzaprine hydrochloride 10 mg oral tablet (20 sources) Muscle Relaxant Start: 05-02-2024 End: 12-20-2024 take 1 tablet by mouth every eight hours as needed cyclobenzaprine (FLEXERIL) 10 mg tablet Take 1 tablet by mouth three times a day as needed for muscle spasm. 30 tablet 05/02/2024 12/20/2024 Discontinued Start: 10-23-2020 End: 11-09-2020 take 1 tablet by mouth three times daily as needed for muscle spasms Cyclobenzaprine 10 mg tablet Discontinued 10 mg PO THREE TIMES A DAY as needed for muscle spasm October 23, 2020 1:00am November 09, 2020 10:51am Start: 07-31-2020 End: 08-03-2020 take 1 tablet by mouth three times daily as needed for muscle spasms Cyclobenzaprine 10 MG tablet Discontinued 10 mg PO 3 TIMES DAILY NEEDED as needed for Muscle Spasm 9 July 31, 2020 12:00am August 02, 2020 12:00am August 03, 2020 12:03am dicyclomine hydrochloride 10 mg oral capsule (3 sources) Anticholinergic Start: 08-27-2022 End: 09-30-2022 take 2 capsules by mouth every six hours as needed Dicyclomine 10 mg capsule Discontinued 20 mg PO EVERY 6 HOURS NEEDED as needed for abdominal discomfort August 27, 2022 7:15pm September 30, 2022 9:08am Start: 08-27-2022 End: 09-30-2022 take 20 mg by mouth every six hours as needed Dicyclomine Discontinued 20 MG PO EVERY 6 HOURS NEEDED August 27, 2022 7:15pm September 30, 2022 9:08am doxycycline hyclate 100 mg oral capsule (8 sources) Tetracycline-class Drug Start: 11-27-2024 End: 12-04-2024 take 1 capsule by mouth twice daily Doxycycline Hyclate 100 mg capsule Discontinued 100 mg PO TWICE A DAY 14 November 27, 2024 1:00am December 03, 2024 1:00am December 04, 2024 1:11am End: 12-20-2024 take 1 tablet by mouth twice daily Doxycycline Hyclate 100 mg EC tablet Take 100 mg by mouth two times a day. X 7 days 12/20/2024 Discontinued hyoscyamine sulfate 0.125 mg sublingual tablet (2 sources) Start: 04-20-2023 take 1 tablet under the tongue once daily as needed hyoscyamine sublingual (LEVSIN SL) 0.125 mg Take 1-2 tablets under tongue every 4hrs as needed. Max 12 tabs per day. 20 tablet 1 04/20/2023 Active Comment on above: Take 1-2 tablets und er tongue every 4hrs as needed. Max 12 tabs per day. ketorolac tromethamine 10 mg oral tablet (5 sources) Nonsteroidal Anti-inflammatory Drug, Cyclooxygenase Inhibitor Start: 10-06-2021 End: 10-11-2021 take 1 tablet by mouth every six hours as needed for pain Ketorolac 10 mg tablet Discontinued 10 mg PO EVERY 6 HOURS as needed for pain 15 5 October 06, 2021 1:00am October 10, 2021 1:00am October 11, 2021 1:01am levoFLOXacin 750 mg oral tablet (3 sources) Quinolone Antimicrobial Start: 01-06-2025 End: 01-13-2025 take 1 tablet by mouth once daily levoFLOXacin (LEVAQUIN) 750 mg tablet Indications: Sinobronchitis Take 1 tablet by mouth once daily for 7 days. 7 tablet 01/06/2025 01/12/2025 Discontinued (Course of therapy completed) levonorgestrel 0.868019 mg/hr intrauterine system (6 sources) Progestin, Progestin-containing Intrauterine Device Start: 07-28-2019 End: 12-21-2019 Levonorgestrel (Mirena) 20 mcg/24 hours (5 yrs) 52 mg intrauterine device Discontinued 1 NMA INTRA-UTER ONCE July 28, 2019 12:00am December 21, 2019 11:23am Start: 07-28-2019 End: 12-21-2019 Levonorgestrel (Mirena) 20 m cg/24 hours (5 yrs) 52 mg intrauterine device Discontinued 1 DEVICE INTRA-UTER ONCE July 28, 2019 12:00am December 21, 2019 11:23am Start: 08-24-2018 End: 08-24-2018 levonorgestrel 20 mcg/24 vonda rs (6 yrs) 52 mg intrauterine device Discontinued 1 INSERT INTRA-UTER ONCE 1 August 24, 2018 9:16am August 24, 2018 9:33am meloxicam 15 mg oral tablet (3 sources) Nonsteroidal Anti-inflammatory Drug Start: 07-27-2023 End: 08-25-2023 take 1 tablet by mouth once daily at mealtime meloxicam (MOBIC) 15 mg tablet Indications: Right wrist tendonitis Take 1 tablet by mouth once daily. With food. 30 tablet 1 07/27/2023 08/25/2023 Discontinued (Other) Comment on above: Take 1 tablet by mouth once daily. With food. mupirocin 0.02 mg/mg topical ointment (1 source) RNA Synthetase Inhibitor Antibacterial Start: 07-27-2023 End: 08-03-2023 mupirocin (BACTROBAN) 2 % ointment Indications: Carbuncle, breast Apply to affected area three times daily for 7 days. 15 g 1 07/27/2023 08/03/2023 Comment on above: Apply to affected area three times daily for 7 days. naproxen 500 mg oral tablet (15 sources) Nonsteroidal Anti-inflammatory Drug Start: 09-28-2019 End: 12-21-2019 take 1 tablet by mouth twice daily as needed for pain Naproxen 500 mg tablet Discontinued 500 mg PO TWICE A DAY as needed for pain September 28, 2019 1:00am December 21, 2019 11:23am Start: 02-25-2019 End: 07-28-2019 take 1 tablet by mouth twice daily as needed Naproxen 500 MG tablet Discontinued 500 mg PO TWICE DAILY NEEDED May 23, 2019 12:00am July 28, 2019 11:20am promethazine hydrochloride 12.5 mg oral tablet (10 sources) Phenothiazine Start: 09-28-2019 End: 12-21-2019 take 1 tablet by mouth three times daily as needed for nausea Promethazine 12.5 MG tablet Discontinued 12.5 mg PO THREE TIMES A DAY as needed for Nausea November 29, 2019 12:14pm December 21, 2019 11:23am 20 ml ropivacaine hydrochloride 5 mg/ml injection (2 sources) Amide Local Anesthetic Start: 01-04-2025 End: 01-04-2025 ROPivacaine (PF) 5 mg/mL (0.5 %) 3 mL injection (NAROPIN) Start: 01-04-2025 End: 01-04-2025 3 mL, Injection - FOR ORTHO USE ONLY, ONCE, 1 dose, Starting on Thu01/04/25 at 1322, Until Thu01/04/25 at 1322 tiZANidine 4 mg oral tablet (3 sources) Central alpha-2 Adrenergic Agonist Start: 02-05-2023 End: 04-20-2023 take 1 tablet by mouth every eight hours as needed tiZANidine (ZANAFLEX) 4 mg tablet Take 1 tablet by mouth every 8 hours as needed (muscle spasms). 30 tablet 0 02/05/2023 04/20/2023 Discontinued Comment on above: Take 1 tablet by oskar every 8 hours as needed (muscle spasms). 1 ml triamcinolone acetonide 40 mg/ml injection (2 sources) Corticosteroid Start: 01-04-2025 End: 01-04-2025 triamcinolone acetonide 40 mg injection (KeNALog 40) Start: 01-04-2025 End: 01-04-2025 40 mg, Injection - FOR ORTHO USE ONLY, ONCE, 1 dose, Starting on Thu01/04/25 at 1322, Until Thu01/04/25 at 1322 Problems Active Problems Problem Classification Problem Date Documented Da te Episodic/Chronic Coronary atherosclerosis and other heart disease (10 sources) Coronary arteriosclerosis; Translations: [Atherosclerotic heart disease of [place] coronary artery without angina pectoris] 11-28-2019 Chronic Diseases of white blood cells (4 sources) Leukocytosis; Translations: [Elevated white blood cell count, unspecified] Onset: 5 12-30-2024 Chronic Disorders of lipid metabolism (20 sources) Hypercholesterolemia; Translations: [Pure hypercholesterolemia, unspecified] Onset: 2 Chronic Disorders of teeth and jaw (1 source) Temporomandibular [id number] syndrome; Translations: [Arthralgia of temporomandibular joint, unspecified side] Episodic Endometriosis (5 sources) Endometriosis (clinical); Translations: [Endometriosis, unspecified] 01-21-2022 Chronic Comment on above: mirena iud failed, d iscussed medical versus minor and major surgical options, [facility] cysto Esophageal disorders (20 sources) Gastroesophageal reflux disease without esophagitis; Translations: [Gastro-esophageal reflux disease without esophagitis] Onset: 2 12-31-2021 Chronic Essential hypertension (5 sources) Hypertensive disorder; Translations: [Essential (primary) hypertension] 11-28-2019 Chronic Female infertility (20 sources) Female infertility associated with anovulation; Translations: [Female infertility associated with anovulation] Onset: 2 09-13-2012 Chronic Headache; including migraine (20 sources) Muscular headache ; Translations: [Migraine without aura, not intractable, without status migrainosus] Onset: Chronic Headache; including migraine (9 sources) Headache; Translations: [Headache] 08-01-2020 Episodic Joint disorders and dislocations; trauma-related (2 sources) Acetabular labrum tear 04-10-2025 Chronic Lymphadenitis (3 sources) Acute mesenteric adenitis; Translations: [Nonspecific mesenteric lymphadenitis] 09-04-2022 Episodic Menopausal disorders (7 sources) Menopausal syndrome; Translations: [Menopausal and female climacteric states] Chronic Menopausal disorders (1 source) Postmenopausal state; Translations: [Hormone replacement therapy] 04-14-2024 Episodic Comment on above: on since 2020-severe hot flashes. Menstrual disorders (20 sources) Irregular periods; Translations: [Irregular menstruation, unspecified] Onset: 1 12-13-2010 Chronic Miscellaneous mental health disorders (1 source) Bruxism (teeth grinding); Translations: [Other somatoform disorders] Chronic Mycoses (1 source) Candidiasis of vagina; Translations: [Vaginal yeast infection] 01-06-2025 Episodic Other bone disease and musculoskeletal deformities (1 source) Somatic dysfunction of thoracic region; Translations: [Segmental and somatic dysfunction of thoracic region] Episodic Other bone disease and musculoskeletal deformities (1 source) Somatic dysfunction of lumbar region; Translations: [Segmental and somatic dysfunction of lumbar region] Episodic Other bone disease and musculoskeletal deformities (1 source) Somatic dysfunction of left sacroiliac joint; Translations: [Segmental and somatic dysfunction of sacral region] Episodic Other bone disease and musculoskeletal deformities (1 source) Costal chondritis; Translations: [Chondrocostal junction syndrome [Tietze]] 11-30-2024 Episodic Other ear and sense organ disorders (1 source) Pain of ear structure; Translations: [Otalgia, right ear] 09-20-2024 Episodic Other endocrine disorders (1 source) Polycystic ovarian syndrome; Translations: [PCOS (polycystic ovarian syndrome)] Onset: 5 Chronic Other female genital disorders (5 sources) Torsion of ovary; Translations: [Torsion of ovary and ovarian pedicle, unspecified side] 10-25-2020 Episodic Other gastrointestinal disorders (1 source) Dysphagia; Translations: [Other dysphagia] 03-18-2024 Episodic Other liver diseases (1 source) Steatosis of liver; Translations: [Fatty (change of) liver, not elsewhere classified] 02-09-2025 Chronic Other lower respiratory disease (5 sources) Rib pain; Translations: [Pleurodynia] 01-12-2022 Episodic Other nervous system disorders (4 sources) Atypical facial pain; Translations: [Atypical facial pain] 01-12-2025 Episodic Other nervous system disorders (2 sources) Trigeminal neuralgia; Translations: [Trigeminal neuralgia] 01-11-2025 Episodic Other nervous system disorders (1 source) Other acute postprocedural pain; Translations: [Post-op pain] Onset: 5 Episodic Other nervous system disorders (1 source) Trigeminal neuralgia; Translations: [Trigeminal neuralgia] Onset: 5 Episodic Other non-traumatic joint disorders (20 sources) Pain of left hip joint; Translations: [Pain in left hip] Onset: 4 06-28-2024 Episodic Other non-traumatic joint disorders (1 source) Pain in left knee; Translations: [Pain in joint, lower leg] 11-26-2023 Episodic Other non-traumatic joint disorders (4 sources) 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; Translations: [Other specified joint disorders, left hip] 04-06-2025 Episodic Other nutritional; endocrine; and metabolic disorders (5 sources) Severe obesity; Translations: [Morbid (severe) obesity due to excess calories] 10-14-2019 Chronic Other nutritional; endocrine; and metabolic disorders (20 sources) Obese class I; Translations: [Obesity, unspecified] Onset: 2 12-31-2021 Chronic Other nutritional; endocrine; and metabolic disorders (2 sources) H/O: raised blood lipids; Translations: [Personal history of other endocrine, nutritional and metabolic disease] 01-20-2024 Episodic Other skin disorders (5 sources) Eruption; Translations: [Rash and other nonspecific skin eruption] 03-19-2015 Episodic Other upper respiratory infections (3 sources) Chronic sinusitis; Translations: [Chronic sinusitis, unspecified] Onset: 5 01-06-2025 Chronic Residual codes; unclassified (5 sources) Family history of Von Willebrand disease; Translations: [Family history of diseases of the blood and blood-forming organs and certain disorders involving the immune mechanism] 01-21-2022 Episodic Residual codes; unclassified (1 source) Pain; Translations: [Pain, unspecified] 09-08-2024 Episodic Residual codes; unclassified (1 source) Pain, unspecified; Translations: [Pain] Onset: 4 Episodic Residual codes; unclassified (1 source) Tobacco user; Translations: [Tobacco use] 02-09-2025 Episodic Residual codes; unclassified (2 sources) History of operative procedure on hip; Translations: [Other specified postprocedural states] 05-16-2025 Episodic Residual codes; unclassified (1 source) Postoperative state; Translations: [Other specified postprocedural states] 05-16-2025 Episodic Screening and history of mental health and substance abuse codes (1 source) Patient encounter status; Translations: [Encounter for screening for depression] 01-12-2025 Episodic Substance-related disorders (20 sources) Tobacco user; Translations: [Nicotine dependence, unspecified, uncomplicated] Onset: 2 12-31-2021 Chronic Unclassified (1 source) Chronic migraine with aura without status migrainosus, not intractable; Translations: [Chronic migraine with aura without status migrainosus, not intractable] Onset: 5 Unclassified (1 source) Vaginal yeast infection; Translations: [Vaginal yeast infection] Onset: 5 Viral infection (1 source) Viral disease; Translations: [Viral infection, unspecified] Episodic Past or Other Problems Problem Classification Problem Date Documented Date Episodic/Chronic Abdominal pain (20 sources) Acute abdominal pain; Translations: [Right upper quadrant pain] Onset: 12-13-2010 12-13-2010 Episodic Cardiac dysrhythmias (20 sources) Tachycardia; Translations: [Tachycardia, unspecified] Onset: 12-13-2010 12-13-2010 Episodic Chronic obstructive pulmonary disease and bronchiectasis (5 sources) Bronchitis; Translations: [Bronchitis, not specified as acute or chronic] Onset: 12-05-2024 11-30-2024 Episodic Diabetes mellitus without complication (20 sources) Hyperglycemia; Translations: [Hyperglycemia, unspecified] Onset: 01-21-2022 01-21-2022 Episodic Fever of unknown origin (1 source) Fever, unspecified; Translations: [Fever, unspecified] Onset: 03-08-2025 Episodic Noninfectious gastroenteritis (20 sources) Gastroenteritis; Translations: [Noninfective gastroenteritis and colitis, unspecified] Onset: 12-13-2010 12-13-2010 Episodic Nonspecific chest pain (8 sources) Chest pain; Translations: [Chest pain, unspecified] Onset: 01-20-2025 01-20-2024 Episodic Other bone disease and musculoskeletal deformities (1 source) Chondrocostal junction syndrome [Tietze]; Translations: [Costochondritis] Onset: 11-30-2024 Episodic Other ear and sense organ disorders (1 source) Otalgia, right ear; Translations: [Acute otalgia, right] Onset: 09-20-2024 Episodic Other endocrine disorders (20 sources) Polycystic ovary syndrome; Translations: [Polycystic ovarian syndrome] Onset: 09-27-2012 Resolved: 12-31-2021 08-25-2023 Chronic Other nervous system disorders (1 source) Atypical facial pain; Translations: [Atypical facial pain] Onset: 01-26-2025 Episodic Other non-traumatic joint disorders (20 sources) Hip pain; Translations: [Pain in left hip] Onset: 06-28-2024 Episodic Other non-traumatic joint disorders (20 sources) Shoulder joint pain; Translations: [Pain in unspecified shoulder] Onset: 01-10-2015 Resolved: 01-21-2022 01-21-2022 Episodic Other non-traumatic joint disorders (3 sources) Pain in left hip; Translations: [Pain of left hip] Onset: 11-23-2024 Episodic Other non-traumatic joint disorders (2 sources) Other specified joint disorders, left hip; Translations: [Femoroacetabular impingement of left hip] Onset: 04-10-2025 Episodic Other upper respiratory infections (10 sources) Acute maxillary sinusitis; Translations: [Acute maxillary sinusitis, unspecified] Onset: 11-30-2024 12-06-2019 Episodic Residual codes; unclassified (3 sources) Other specified postprocedural states; Translations: [Status post arthroscopy of hip] Onset: 05-16-2025 Episodic Spondylosis; intervertebral disc disorders; other back problems (20 sources) Neck pain; Translations: [Cervicalgia] Onset: 09-07-2013 Resolved: 01-21-2022 08-01-2020 Episodic Sprains and strains (20 sources) Sprain of left ankle; Translations: [Sprain of unspecified ligament of left ankle, initial encounter] Onset: 10-01-2022 Episodic Results Test Name Value Interpretation Reference Range Facility Emergency Department Summary on 09-03-2025 Emergency Department Summary [facility] Medical Records Department [address] [place] [address] Emergency Department Summary 09/03/25 MR#: [id number] Acct: [id number] Name: MACEY CAMPBELL Rep #: [id number] : 1990 35 From: Carmelo Rodriguez MD PCP: ANGELITO Mccrary Status:PRE ER Location: ED HPI History of Present Illness Chief Complaint: Laceration Detail of Chief Complaint: Laceration superior right brow due to blunt trauma Informant: patient Onset/Context/Timing Onset: Hours Mechanism/Context: Blunt Injury Location of pain/injuries: - (Superior to the right brow) Quality of Pain: - (Not applicable) Current Severity: Gone Maximum Severity: Mild Worsened by: Initial injury Associated Symptoms Associated Symptoms: Negative for Parasthesias, Weakness, Loss of function, Inability to ambulate, Loss of consciousness or Amnesia Narrative Narrative: Patient is not on an anticoagulant or antithrombotic. She states she sustained blunt trauma to her forehead. She has a curvilinear gaping laceration above the right brow. She denies double vision blurred vision loss of vision. She denies headache. She denies nausea or vomiting. She has no other complaints. Prior similar symptoms: No Recent Illness/Hospitalizat ion: No PFSH PFSH Medical History Acid reflux Chronic neck and back pain Severe headache Endometriosis Ectopic History of PCOS History of ovarian cyst Home Medications ???Medication ???Instructions ???Recorded ???Last Taken ???Type metformin 500 mg tablet 500 mg PO DAILY 04/14/24 Unknown H istory spironolactone 50 mg tablet 50 mg PO BID 04/14/24 Unknown Hist ory carbamazepine 100 mg 100 mg PO BID #20 tabs 01/11/25 Un known Rx tablet,extended release,12 hr rosuvastatin 5 mg tablet (Crestor) 10 mg PO DAILY 01/11/25 Unknown History orphenadrine citrate 100 mg 100 mg PO Q12H PRN muscle pain #14 03/02/25 Unknown Rx tablet,extended release tabs estradiol 0.075 mg/24 hr 1 patch transdermal 2XW #8 ea 06/03 06/26 Unknown Rx semiweekly transdermal patch (Vivelle-Dot) Allergy/AdvReac Type Severity Reaction Status Date / Time Sulfa (Sulfonamide Allergy Mild Rash Verified 09/03/25 17:29 Antibiotics) clindamycin Allergy Rash Verified 09/03/25 17:29 Family History Grandfather Diabetes Heart disease Surgical History H/O unilateral oophorectomy ( 01/30/21) History of right oophorectomy History of LAVH [place] teeth extracted History of laparoscopy Social History household members: family and children housing: house current occupational status: employed Smoking Status: Current every day smoker tobacco type: cigarettes alcohol intake: former details: social substance use type: does not use caffeine: Yes what type of physical activity do you participate in: none seatbelt use: always do you feel safe at home: Yes 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 [facility] Musculoskeletal Musculoskeletal: Denies neck pain Integumentary Reports other Details: Forehead laceration Neurologic Neurologic: Denies headache(s), paresthesias or weakness Hematologic/Lymphati c Hematologic/Lymphati c: Denies easy bleeding or easy bruising EXAM Physical Exam Const Vital Signs: 09/03/25 17:29 09/03/25 20:12 Temperature 96.9 F L Temperature Source Temporal Pulse Rate 116 H Respiratory Rate 16 Respiratory Effort Normal Non-Labored Blood Pressure 132/94 H Blood Pressure Mean 106 Pulse Ox 98 Oxygen Delivery Method Room Air Room Air Positive well nourished and well developed General Appearance ED: well developed and NAD HEENT HEENT Narrative: Curvilinear gaping laceration above the right brow. This is approximately 1.2 cm in length. There is no palpable depression. There is no step-off with palpation of the superior orbital rim. There is no bruising noted Eyes PERRL and EOMs intact bilaterally General Eye ED: Yes other Other Details: There is no subconjunctival hemorrhage. Is no evidence of entrapment. Neck full ROM Resp normal respiratory effort Cardio regular rhythm Rate: regular rate Neuro oriented x3, CN's II-XII intact bilaterally and moves all extremities Julissa Coma Scale: document GCS findings Spontaneous Obeys Commands Oriented 15 Sensorium / Orientation: alert Psych mental status grossly normal and thought process normal Skin Skin Narrative: Laceration forehead above the right brow PROC Procedures Other Procedures Procedure(s): Patient's wound was cleansed by me. There is no signs of wound to lidocaine by local filtra (more content not included)... 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 Patient presents with: 6 Month Exam No complaints Right cheek pain- gabapentin helps but makes her very sleepy Had right hip arthroscopy- in PT The patient is a 35-year-old female with chronic sinusitis and trigeminal neuralgia, presenting for management of neuropathic facial pain and gabapentin dose adjustment. Macey is a 35-year-old female with a history of trigeminal neuralgia, presenting for follow-up. Trigeminal Neuralgia: - Reports improvement in facial pain. - Discontinued gabapentin due to excessive sedation; was taking it once daily. - Pain management with gabapentin was effective, but medication was taken sporadically due to side effects. - Denies recent weight loss, weight gain, fever, or chills. Hip Pain: - Underwent hip surgery in April to address a labral tear. - Currently in physical therapy, focusing on stretching exercises. - Reports persistent soreness with certain movements. - Recent follow-up with surgeon revealed stiffness in the hip capsule; advised to push through the pain. - Denies leg swelling. Migraine Headaches: - Increase in frequency noted recently, attributed to weather changes. - Denies changes in hearing or vision. Chronic Sinusitis: - Reports improvement in chronic sinus issues. - Denies lumps, bumps, or swelling in the neck. Denies SOB, cough, wheeze, chest pain, orthopnea, palpitations, nausea, emesis, excessive thirst, syncope, seizures, tremors, hopelessness, helplessness, or suicidal thoughts. PAST MEDICAL HISTORY: PAST MEDICAL HISTORY Diagnosis Date GERD without esophagitis 12/31/2021 Obesity, Class I, BMI 30-34.9 12/31/2021 PCOS (polycystic ovarian syndrome) Tobacco use disorder 12/31/2021 PAST SURGICAL HISTORY Procedure Laterality Date COLONOSCOPY SCREENING 02/08/2024 [facility] VARICIES INJ 02/08/2024 LAPS ABD PRTMANDOMENTUM DX W/WO SPEC BR/WA SPX 2014 Laparoscopy - for r/o endometriosis, foung to have a cyst PT ED OBSTETRICS AND GYNECOLOGY N/A 12/2019 laparoscopic hysterectomy - for endometriosis - Dr. Shelley REMOVAL OF OVARY(S) Right 10/24/2020 ovarian torsion REMOVAL OF OVARY(S) Left 12/2020 Dr Jo SALPINGECTOMY Right 12/27/2016 laparoscopic Right salpingectomy- ECTOPIC ALLERGIES Cleocin [Clindamycin] and Sulfa (Sulfonamide Antibiotics) MEDICATIONS Current Outpatient Medications Medication Sig omeprazole (PRILOSEC) 40 mg capsule Take 1 capsule by mouth once daily. amitriptyline (ELAVIL) 10 mg tablet Take 1 tablet by mouth daily at bedtime. metFORMIN ER (GLUCOPHAGE XR) 500 mg 24 hr tablet Take 1 tablet by mouth daily with breakfast. rizatriptan (MAXALT ARMORING MACHINE OPERATOR) 10 mg disintegrating tablet Take 1 tablet by mouth as needed. May repeat in 2 hours if needed rosuvastatin (CRESTOR) 5 mg tablet Take 2 tablets by mouth daily at bedtime. spironolactone (ALDACTONE) 50 mg tablet Take 1 tablet by mouth two times a day. aspirin, enteric coated (ECOTRIN LOW STRENGTH) 81 mg EC tablet Take 1 tablet by mouth two times a day for 21 days. TO BEGIN 24 HOURS POST OP Patient should start on April 27, 2025. (Patient not taking: Reported on 06/12/2025) docusate sodium (COLACE) 100 mg capsule Take 1 capsule by mouth two times a day. ondansetron (ZOFRAN) 4 mg tablet Take 1 tablet by mouth every 8 hours as needed for nausea/vomiting. gabapentin (NEURONTIN) 300 mg capsule Take 1 capsule by mouth three times a day for 180 days. (Patient not taking: Reported on 08/21/2025) estradiol (ESTRACE) 1 mg tablet (Patient taking differently: USING A PATCH) No current facility-administere d medications for this visit. FAMILY HISTORY Problem Relation Age of Onset Cervical Cancer Mother other (breast cyst [Other]) Mother Hyperlipidemia Father Hypertension Father other (sepsis) Father (after ruptured appe and another surgical complication where bowel was perforated during a[place]). No Known Problems Sister No Known Problems Sister ADD/ADHD Brother Depression Brother ADD/ADHD Brother Stroke Maternal Grandmother No Known Problems Maternal Grandfather Hypertension Paternal Grandmother Hyperlipidemia Paternal Grandmother Skin Cancer Paternal Grandmother other (ewings sarcoma) Paternal Grandmother Hypertension Paternal Grandfather Heart Attack Paternal Grandfather Diabetes Paternal Grandfather Hyperlipidemia Paternal Grandfather COPD (more content not included)... [facility] CNTHERAPYon 10-17-2025 CNTHERAPY OT/PT/Speech Visit (PTWS) MACEY CAMPBELL ([id number]) 1990 F Date Time Provider Department 08/18/25 12:30 PM MACEY KAISER PTMARCO Date Time Provider Department [place] 08/18/2025 12:30 PM [id number] KAISER PTMARCO Vásquez Reason for Visit: Physical Therapy [503] Primary Visit Diagnosis:Tear of left acetabular labrum, initial encounter [S73.192A] Allergies As of Date: 08/18/2025 Noted Allergy Reaction CLEOCIN (CLINDAMYCIN) 10/16/2021 2 - Rash SULFA (SULFONAMIDE ANTIBIOTICS) 12/13/2010 2 - Rash Date Reviewed: 08/14/2025 Reviewed by: Maribel Odonnell MA - Fully Assessed Prescriptions as of 08/18/2025 - metFORMIN ER (GLUCOPHAGE XR) 500 mg 24 hr tablet Take 1 tablet by mouth daily with breakfast. - spironolactone (ALDACTONE) 50 mg tablet Take 1 tablet by mouth two times a day. - rizatriptan (MAXALT ARMORING MACHINE OPERATOR) 10 mg disintegrating tablet Take 1 tablet by mouth as needed. May repeat in 2 hours if needed - aspirin, enteric coated (ECOTRIN LOW STRENGTH) 81 mg EC tablet Take 1 tablet by mouth two times a day for 21 days. TO BEGIN 24 HOURS POST OP Patient should start on April 27, 2025. - docusate sodium (COLACE) 100 mg capsule Take 1 capsule by mouth two times a day. - ondansetron (ZOFRAN) 4 mg tablet Take 1 tablet by mouth every 8 hours as needed for nausea/vomiting. - omeprazole (PRILOSEC) 40 mg capsule Take 1 capsule by mouth once daily. - gabapentin (NEURONTIN) 300 mg capsule Take 1 capsule by mouth three times a day for 180 days. - rosuvastatin (CRESTOR) 5 mg tablet Take 2 tablets by mouth daily at bedtime. - amitriptyline (ELAVIL) 10 mg tablet Take 1 tablet by mouth daily at bedtime. - estradiol (ESTRACE) 1 mg tablet [facility] CNOVon 08-14-2025 CNOV Office Visit (ORFWHP) MACEY CAMPBELL ([id number]) 1990 F Date Time Provider Department 08/14/25 8:30 AM DAR VERMA ORFWHP During your visit today, we recorded the following information about you: Dar Verma MD 08/14/2025 8:39 AM Signed RETURN ENCOUNTER Chief Complaint: s/p left hip arthroscopic labrum repair, femoroplasty, acetabuloplasty, capsular closure (DOS: 04/26/2025) HPI: Pain: better AROM: improved Function: improved Date of Injury: 04/26/25 Activity: currently ongoing FAMILY HISTORY Problem Relation Age of Onset Cervical Cancer Mother other (breast cyst [Other]) Mother Hyperlipidemia Father Hypertension Father other (sepsis) Father (after ruptured appe and another surgical complication where bowel was perforated during [place]). No Known Problems Sister No Known Problems Sister ADD/ADHD Brother Depression Brother ADD/ADHD Brother Stroke Maternal Grandmother No Known Problems Maternal Grandfather Hypertension Paternal Grandmother Hyperlipidemia Paternal Grandmother Skin Cancer Paternal Grandmother other (ewings sarcoma) Paternal Grandmother Hypertension Paternal Grandfather Heart Attack Paternal Grandfather Diabetes Paternal Grandfather Hyperlipidemia Paternal Grandfather COPD Paternal Grandfather ADD/ADHD Son Current Outpatient Medications Medication Sig metFORMIN ER (GLUCOPHAGE XR) 500 mg 24 hr tablet Take 1 tablet by mouth daily with breakfast. spironolactone (ALDACTONE) 50 mg tablet Take 1 tablet by mouth two times a day. rizatriptan (MAXALT ARMORING MACHINE OPERATOR) 10 mg disintegrating tablet Take 1 tablet by mouth as needed. May repeat in 2 hours if needed aspirin, enteric coated (ECOTRIN LOW STRENGTH) 81 mg EC tablet Take 1 tablet by mouth two times a day for 21 days. TO BEGIN 24 HOURS POST OP Patient should start on April 27, 2025. (Patient not taking: Reported on 06/12/2025) docusate sodium (COLACE) 100 mg capsule Take 1 capsule by mouth two times a day. ondansetron (ZOFRAN) 4 mg tablet Take 1 tablet by mouth every 8 hours as needed for nausea/vomiting. omeprazole (PRILOSEC) 40 mg capsule Take 1 capsule by mouth once daily. gabapentin (NEURONTIN) 300 mg capsule Take 1 capsule by mouth three times a day for 180 days. rosuvastatin (CRESTOR) 5 mg tablet Take 2 tablets by mouth daily at bedtime. amitriptyline (ELAVIL) 10 mg tablet Take 1 tablet by mouth daily at bedtime. estradiol (ESTRACE) 1 mg tablet No current facility-administere d medications for this visit. ALLERGIES Allergen Reactions Cleocin [Clindamyci* Rash Sulfa (Sulfonamide * Rash Allergies, medications, past surgical history, family history and past medical history were reviewed per this encounter. Physical Examination: Region: Hip General Appearance: Appears healthy, well-nourished, no deformities. Left Exam: AROM: normal PROM: normal Point Tenderness location: none Swelling/Effusion: none Stability: normal Muscle Strength: normal Stiff hip rotation and FADIR and FLORES ER. Assessment and Plan: Status post left hip arthroscopy with labral repair and capsular closure. Doing well. She is demonstrating capsular stiffness, especially in the FA the ER position. All of her discomfort in this position is related to the capsule and capsular repair. Okay to be forceful and push through this as it is not, repeat not related to the labrum. She can follow-up with me in 2 to 3 months. All of her focus should be on range of motion and stretching as well as functional retraining. Dar Verma MD Sports Medicine/Orthopaedic Surgery Allergies As of Date: 08/14/2025 Noted Allergy Reaction CLEOCIN (CLINDAMYCIN) 10/16/2021 2 - Rash SULFA (SULFONAMIDE ANTIBIOTICS) 12/13/2010 2 - Rash Date Reviewed: 08/14/2025 Reviewed by: Maribel Odonnell MA - Fully Assessed Reason for Visit: Established Patient [175] Primary Visit Diagnosis:Status post arthroscopy of hip [Z98.890] Prescriptions as of 08/14/2025 - metFORMIN ER (GLUCOPHAGE XR) 500 mg 24 hr tablet Take 1 tablet by mouth daily with breakfast. - spironolactone (ALDACTONE) 50 mg tablet Take 1 tablet by mouth two times a day. - rizatriptan (MAXALT ARMORING MACHINE OPERATOR) 10 mg disintegrating tablet Take 1 tablet by mouth as needed. May repeat in 2 hours if needed - aspirin, enteric coated (ECOTRIN LOW STRENGTH) 81 mg EC tablet Take 1 tablet by mouth two times a day for 21 days. TO BEGIN 24 HOURS POST OP Patient should start on April 27, 2025. - docusate sodium (COLACE) 100 mg capsule Take 1 capsule by mouth two times a day. - ondansetron (ZOFRAN) 4 mg tablet Take 1 tablet by mouth every 8 hours as needed for nausea/vomiting. - omeprazole (PRILOSEC) 40 mg capsule Take 1 capsule by mouth once daily. - gabapentin (NEURONTIN) 300 mg capsule Take 1 capsule by mouth three times a day for 180 days. - rosuvastatin (CRESTOR) (more content not included)... [facility] CNTHERAPYon 08-09-2025 CNTHERAPY OT/PT/Speech Visit (PTWS) MACEY CAMPBELL ([id number]) 1990 F Date Time Provider Department 08/09/25 9:45 AM MACEY KAISER PTMARCO Date Time Provider Department [place] 08/09/2025 9:45 AM [id number] KAISER PTMARCO Vásquez Reason for Visit: Physical Therapy [503] Primary Visit Diagnosis:Tear of left acetabular labrum, initial encounter [S73.192A] Allergies As of Date: 08/09/2025 Noted Allergy Reaction CLEOCIN (CLINDAMYCIN) 10/16/2021 2 - Rash SULFA (SULFONAMIDE ANTIBIOTICS) 12/13/2010 2 - Rash Date Reviewed: 06/12/2025 Reviewed by: Maribel Odonnell MA - Fully Assessed Prescriptions as of 08/09/2025 - metFORMIN ER (GLUCOPHAGE XR) 500 mg 24 hr tablet Take 1 tablet by mouth daily with breakfast. - spironolactone (ALDACTONE) 50 mg tablet Take 1 tablet by mouth two times a day. - rizatriptan (MAXALT ARMORING MACHINE OPERATOR) 10 mg disintegrating tablet Take 1 tablet by mouth as needed. May repeat in 2 hours if needed - aspirin, enteric coated (ECOTRIN LOW STRENGTH) 81 mg EC tablet Take 1 tablet by mouth two times a day for 21 days. TO BEGIN 24 HOURS POST OP Patient should start on April 27, 2025. - docusate sodium (COLACE) 100 mg capsule Take 1 capsule by mouth two times a day. - ondansetron (ZOFRAN) 4 mg tablet Take 1 tablet by mouth every 8 hours as needed for nausea/vomiting. - omeprazole (PRILOSEC) 40 mg capsule Take 1 capsule by mouth once daily. - gabapentin (NEURONTIN) 300 mg capsule Take 1 capsule by mouth three times a day for 180 days. - rosuvastatin (CRESTOR) 5 mg tablet Take 2 tablets by mouth daily at bedtime. - amitriptyline (ELAVIL) 10 mg tablet Take 1 tablet by mouth daily at bedtime. - estradiol (ESTRACE) 1 mg tablet [facility] CNTHERAPYon 08-02-2025 CNTHERAPY OT/PT/Speech Visit (PTWS) MACEY CAMPBELL ([id number]) 1990 F Date Time Provider Department 08/02/25 2:00 PM NILA GOMEZ PTMARCO Date Time Provider Department [place] 08/02/2025 2:00 PM [id number], MARIAH PTMARCO Vásquez Reason for Visit: Physical Therapy [503] Primary Visit Diagnosis:Tear of left acetabular labrum, initial encounter [S73.192A] Allergies As of Date: 08/02/2025 Noted Allergy Reaction CLEOCIN (CLINDAMYCIN) 10/16/2021 2 - Rash SULFA (SULFONAMIDE ANTIBIOTICS) 12/13/2010 2 - Rash Date Reviewed: 06/12/2025 Reviewed by: Maribel Odonnell MA - Fully Assessed Prescriptions as of 08/02/2025 - metFORMIN ER (GLUCOPHAGE XR) 500 mg 24 hr tablet Take 1 tablet by mouth daily with breakfast. - spironolactone (ALDACTONE) 50 mg tablet Take 1 tablet by mouth two times a day. - rizatriptan (MAXALT ARMORING MACHINE OPERATOR) 10 mg disintegrating tablet Take 1 tablet by mouth as needed. May repeat in 2 hours if needed - aspirin, enteric coated (ECOTRIN LOW STRENGTH) 81 mg EC tablet Take 1 tablet by mouth two times a day for 21 days. TO BEGIN 24 HOURS POST OP Patient should start on April 27, 2025. - docusate sodium (COLACE) 100 mg capsule Take 1 capsule by mouth two times a day. - ondansetron (ZOFRAN) 4 mg tablet Take 1 tablet by mouth every 8 hours as needed for nausea/vomiting. - omeprazole (PRILOSEC) 40 mg capsule Take 1 capsule by mouth once daily. - gabapentin (NEURONTIN) 300 mg capsule Take 1 capsule by mouth three times a day for 180 days. - rosuvastatin (CRESTOR) 5 mg tablet Take 2 tablets by mouth daily at bedtime. - amitriptyline (ELAVIL) 10 mg tablet Take 1 tablet by mouth daily at bedtime. - estradiol (ESTRACE) 1 mg tablet [facility] CNTHERAPYon 07-26-2025 CNTHERAPY OT/PT/Speech Visit (PTWS) MACEY CAMPBELL ([id number]) 1990 F Date Time Provider Department 07/26/25 9:00 AM MACEY KAISER PTWS Date Time Provider Department [place] 07/26/2025 9:00 AM [id number] KAISER PTWS Rubin Martin Reason for Visit: PT Progress Note [1596] Primary Visit Diagnosis:Tear of left acetabular labrum, initial encounter [S73.192A] Allergies As of Date: 07/26/2025 Noted Allergy Reaction CLEOCIN (CLINDAMYCIN) 10/16/2021 2 - Rash SULFA (SULFONAMIDE ANTIBIOTICS) 12/13/2010 2 - Rash Date Reviewed: 06/12/2025 Reviewed by: Maribel Odonnell MA - Fully Assessed Prescriptions as of 07/26/2025 - rizatriptan (MAXALT ARMORING MACHINE OPERATOR) 10 mg disintegrating tablet Take 1 tablet by mouth as needed. May repeat in 2 hours if needed - aspirin, enteric coated (ECOTRIN LOW STRENGTH) 81 mg EC tablet Take 1 tablet by mouth two times a day for 21 days. TO BEGIN 24 HOURS POST OP Patient should start on April 27, 2025. - docusate sodium (COLACE) 100 mg capsule Take 1 capsule by mouth two times a day. - ondansetron (ZOFRAN) 4 mg tablet Take 1 tablet by mouth every 8 hours as needed for nausea/vomiting. - omeprazole (PRILOSEC) 40 mg capsule Take 1 capsule by mouth once daily. - gabapentin (NEURONTIN) 300 mg capsule Take 1 capsule by mouth three times a day for 180 days. - metFORMIN ER (GLUCOPHAGE XR) 500 mg 24 hr tablet Take 1 tablet by mouth daily with breakfast. - spironolactone (ALDACTONE) 50 mg tablet Take 1 tablet by mouth two times a day. - rosuvastatin (CRESTOR) 5 mg tablet Take 2 tablets by mouth daily at bedtime. - amitriptyline (ELAVIL) 10 mg tablet Take 1 tablet by mouth daily at bedtime. - estradiol (ESTRACE) 1 mg tablet [employer]: Addendum Therapy (PT/OT/Speech/Resp) ID: [id number] 07/26/2025 9:26 AM Author: MACEY KAISER Signed by MACEY KAISER PT on 07/26/2025 at 9:26 AM * * * This document replaces document [id number] * * * Document text: Program_ID:[id number] Access Code: [email or web address] URL: [email or web address] Date: 07-26-2025 Prepared By: Macey Kaiser Program Notes Exercises - Standing Hip Hinge - 1 x daily - 7 x weekly - 4 sets - 10 reps - Mini Squat - 1 x daily - 7 x weekly - 4 sets - 10 reps - Tall Kneeling Hip Hinge - 1 x daily - 7 x weekly - 4 sets - 10 reps - Wall Squat with [place]se Ball - 1 x daily - 7 x weekly - 4 sets - 10 reps - Half Kneel Dynamic Hamstrings and Contralateral Hip Flexor Stretch - 1 x daily - 7 x weekly - 2 sets - 15 reps -------- [facility] THERAPY NTon 07-26-2025 THERAPY NT HNO ID: [id number] Author: MACEY KAISER PT Service: ? Author Type: Physical Therapist Type: Therapy (PT/OT/Speech/Resp) Filed: 07/26/2025 09:26 Note Text: Program_ID:[id number] Access Code: [email or web address] URL: [email or web address] Date: 07-26-2025 Prepared By: Macey Kaiser Program Notes Exercises - Standing Hip Hinge - 1 x daily - 7 x weekly - 4 sets - 10 reps - Mini Squat - 1 x daily - 7 x weekly - 4 sets - 10 reps - Tall Kneeling Hip Hinge - 1 x daily - 7 x weekly - 4 sets - 10 reps - Wall Squat with [place]se Ball - 1 x daily - 7 x weekly - 4 sets - 10 reps - Half Kneel Dynamic Hamstrings and Contralateral Hip Flexor Stretch - 1 x daily - 7 x weekly - 2 sets - 15 reps [facility] CNTHERAPYon 07-12-2025 CNTHERAPY OT/PT/Speech Visit (PTWS) MACEY CAMPBELL ([id number]) 1990 F Date Time Provider Department 07/12/25 9:00 AM MACEY KA[facility]ER PTMARCO Date Time Provider Department [place] 07/12/2025 9:00 AM [id number] KAISER PTWS Rubin Vásquez Reason for Visit: Physical Therapy [503] Primary Visit Diagnosis:Tear of left acetabular labrum, initial encounter [S73.192A] Allergies As of Date: 07/12/2025 Noted Allergy Reaction CLEOCIN (CLINDAMYCIN) 10/16/2021 2 - Rash SULFA (SULFONAMIDE ANTIBIOTICS) 12/13/2010 2 - Rash Date Reviewed: 06/12/2025 Reviewed by: Maribel Odonnell MA - Fully Assessed Prescriptions as of 07/12/2025 - rizatriptan (MAXALT ARMORING MACHINE OPERATOR) 10 mg disintegrating tablet Take 1 tablet by mouth as needed. May repeat in 2 hours if needed - aspirin, enteric coated (ECOTRIN LOW STRENGTH) 81 mg EC tablet Take 1 tablet by mouth two times a day for 21 days. TO BEGIN 24 HOURS POST OP Patient should start on April 27, 2025. - docusate sodium (COLACE) 100 mg capsule Take 1 capsule by mouth two times a day. - ondansetron (ZOFRAN) 4 mg tablet Take 1 tablet by mouth every 8 hours as needed for nausea/vomiting. - omeprazole (PRILOSEC) 40 mg capsule Take 1 capsule by mouth once daily. - gabapentin (NEURONTIN) 300 mg capsule Take 1 capsule by mouth three times a day for 180 days. - metFORMIN ER (GLUCOPHAGE XR) 500 mg 24 hr tablet Take 1 tablet by mouth daily with breakfast. - spironolactone (ALDACTONE) 50 mg tablet Take 1 tablet by mouth two times a day. - rosuvastatin (CRESTOR) 5 mg tablet Take 2 tablets by mouth daily at bedtime. - amitriptyline (ELAVIL) 10 mg tablet Take 1 tablet by mouth daily at bedtime. - estradiol (ESTRACE) 1 mg tablet [employer]: Therapy (PT/OT/Speech/Resp) ID: [id number] 07/12/2025 9:25 AM Author: MAECY KAISER Signed by MACEY KAISER PT on 07/12/2025 at 9:28 AM Document text: Program_ID:[id number] Access Code: [email or web address] URL: [email or web address] Date: 07-12-2025 Prepared By: Macey Kaiser Program Notes Exercises - Quadruped Alternating Arm Lift - 2 x daily - 7 x weekly - 4 sets - 10 reps - Quadruped Alternating Leg Extensions - 2 x daily - 7 x weekly - 4 sets - 30 reps - Bird Dog - 2 x daily - 7 x weekly - 4 sets - 30 reps - Quadruped Fire Hydrant - 2 x daily - 7 x weekly - 4 sets - 30 reps -------- [facility] THERAPY NTon 07-12-2025 THERAPY NT HNO ID: [id number] Author: MACEY KAISER PT Service: ? Author Type: Physical Therapist Type: Therapy (PT/OT/Speech/Resp) Filed: 07/12/2025 09:28 Note Text: Program_ID:[id number] Access Code: [email or web address] URL: [email or web address] Date: 07-12-2025 Prepared By: Macey Kaiser Program Notes Exercises - Quadruped Alternating Arm Lift - 2 x daily - 7 x weekly - 4 sets - 10 reps - Quadruped Alternating Leg Extensions - 2 x daily - 7 x weekly - 4 sets - 30 reps - Bird Dog - 2 x daily - 7 x weekly - 4 sets - 30 reps - Quadruped Fire Hydrant - 2 x daily - 7 x weekly - 4 sets - 30 reps [facility] CNTHERAPYon 06-28-2025 CNTHERAPY OT/PT/Speech Visit (PTWS) MACEY CAMPBELL ([id number]) 1990 F Date Time Provider Department 06/28/25 9:00 AM MACEY KAISER PTMARCO Date Time Provider Department [place] 06/28/2025 9:00 AM [id number] KAISER PTWS Rubin Vásquez Reason for Visit: Physical Therapy [503] Primary Visit Diagnosis:Tear of left acetabular labrum, initial encounter [S73.192A] Allergies As of Date: 06/28/2025 Noted Allergy Reaction CLEOCIN (CLINDAMYCIN) 10/16/2021 2 - Rash SULFA (SULFONAMIDE ANTIBIOTICS) 12/13/2010 2 - Rash Date Reviewed: 06/12/2025 Reviewed by: Maribel Odonnell MA - Fully Assessed Prescriptions as of 06/28/2025 - aspirin, enteric coated (ECOTRIN LOW STRENGTH) 81 mg EC tablet Take 1 tablet by mouth two times a day for 21 days. TO BEGIN 24 HOURS POST OP Patient should start on April 27, 2025. - docusate sodium (COLACE) 100 mg capsule Take 1 capsule by mouth two times a day. - ondansetron (ZOFRAN) 4 mg tablet Take 1 tablet by mouth every 8 hours as needed for nausea/vomiting. - omeprazole (PRILOSEC) 40 mg capsule Take 1 capsule by mouth once daily. - gabapentin (NEURONTIN) 300 mg capsule Take 1 capsule by mouth three times a day for 180 days. - rizatriptan (MAXALT ARMORING MACHINE OPERATOR) 10 mg disintegrating tablet Take 1 tablet (10 mg) by mouth as needed. May repeat in 2 hours if needed - metFORMIN ER (GLUCOPHAGE XR) 500 mg 24 hr tablet Take 1 tablet by mouth daily with breakfast. - spironolactone (ALDACTONE) 50 mg tablet Take 1 tablet by mouth two times a day. - rosuvastatin (CRESTOR) 5 mg tablet Take 2 tablets by mouth daily at bedtime. - amitriptyline (ELAVIL) 10 mg tablet Take 1 tablet by mouth daily at bedtime. - estradiol (ESTRACE) 1 mg tablet [employer]: Addendum Therapy (PT/OT/Speech/Resp) ID: [id number] 06/28/2025 9:20 AM Author: MACEY KAISER Signed by MACEY KAISER PT on 06/28/2025 at 9:20 AM * * * This document replaces document [id number] * * * Document text: Program_ID:[id number] Access Code: [email or web address] URL: [email or web address] Date: 06-28-2025 Prepared By: Macey Kaiser Program Notes Exercises - Single Leg Sit to Stand with Arms Crossed - 1 x daily - 7 x weekly - 3 sets - 12 reps - Single Leg Sit to Stand with Arms Crossed - 1 x daily - 7 x weekly - 3 sets - 12 reps - Forward T with Counter Support - 1 x daily - 7 x weekly - 3 sets - 12 reps - Forward T with Counter Support - 1 x daily - 7 x weekly - 3 sets - 12 reps - Side Plank on Knees - 1 x daily - 7 x weekly - 3 sets - reps - Side Plank on Knees - 1 x daily - 7 x weekly - 3 sets - reps -------- [facility] THERAPY NTon 06-28-2025 THERAPY NT HNO ID: [id number] Author: MACEY KAISER PT Service: ? Author Type: Physical Therapist Type: Therapy (PT/OT/Speech/Resp) Filed: 06/28/2025 09:20 Note Text: Program_ID:[id number] Access Code: [email or web address] URL: [email or web address] Date: 06-28-2025 Prepared By: Macey Kaiser Program Notes Exercises - Single Leg Sit to Stand with Arms Crossed - 1 x daily - 7 x weekly - 3 sets - 12 reps - Single Leg Sit to Stand with Arms Crossed - 1 x daily - 7 x weekly - 3 sets - 12 reps - Forward T with Counter Support - 1 x daily - 7 x weekly - 3 sets - 12 reps - Forward T with Counter Support - 1 x daily - 7 x weekly - 3 sets - 12 reps - Side Plank on Knees - 1 x daily - 7 x weekly - 3 sets - reps - Side Plank on Knees - 1 x daily - 7 x weekly - 3 sets - reps [facility] CNTHERAPYon 06-20-2025 CNTHERAPY OT/PT/Speech Visit (PTWS) MACEY CAMPBELL ([id number]) 1990 F Date Time Provider Department 06/20/25 1:30 PM MACEY KAISER PTMARCO Date Time Provider Department [place] 06/20/2025 1:30 PM [id number] KAISER PTMARCO Vásquez Reason for Visit: Physical Therapy [503] Primary Visit Diagnosis:Tear of left acetabular labrum, initial encounter [S73.192A] Allergies As of Date: 06/20/2025 Noted Allergy Reaction CLEOCIN (CLINDAMYCIN) 10/16/2021 2 - Rash SULFA (SULFONAMIDE ANTIBIOTICS) 12/13/2010 2 - Rash Date Reviewed: 06/12/2025 Reviewed by: Maribel Odonnell MA - Fully Assessed Prescriptions as of 06/20/2025 - aspirin, enteric coated (ECOTRIN LOW STRENGTH) 81 mg EC tablet Take 1 tablet by mouth two times a day for 21 days. TO BEGIN 24 HOURS POST OP Patient should start on April 27, 2025. - docusate sodium (COLACE) 100 mg capsule Take 1 capsule by mouth two times a day. - ondansetron (ZOFRAN) 4 mg tablet Take 1 tablet by mouth every 8 hours as needed for nausea/vomiting. - omeprazole (PRILOSEC) 40 mg capsule Take 1 capsule by mouth once daily. - gabapentin (NEURONTIN) 300 mg capsule Take 1 capsule by mouth three times a day for 180 days. - rizatriptan (MAXALT ARMORING MACHINE OPERATOR) 10 mg disintegrating tablet Take 1 tablet (10 mg) by mouth as needed. May repeat in 2 hours if needed - metFORMIN ER (GLUCOPHAGE XR) 500 mg 24 hr tablet Take 1 tablet by mouth daily with breakfast. - spironolactone (ALDACTONE) 50 mg tablet Take 1 tablet by mouth two times a day. - rosuvastatin (CRESTOR) 5 mg tablet Take 2 tablets by mouth daily at bedtime. - amitriptyline (ELAVIL) 10 mg tablet Take 1 tablet by mouth daily at bedtime. - estradiol (ESTRACE) 1 mg tablet [facility] CNTHERAPYon 06-14-2025 CNTHERAPY OT/PT/Speech Visit (PTWS) MACEY CAMPBELL ([id number]) 1990 F Date Time Provider Department 06/14/25 9:00 AM MACEY KAISER PTWS Date Time Provider Department Center 06/14/2025 9:00 AM [id number] KAISER PTWS Rubin Vásquez Reason for Visit: Physical Therapy [503] Primary Visit Diagnosis:Tear of left acetabular labrum, initial encounter [S73.192A] Allergies As of Date: 06/14/2025 Noted Allergy Reaction CLEOCIN (CLINDAMYCIN) 10/16/2021 2 - Rash SULFA (SULFONAMIDE ANTIBIOTICS) 12/13/2010 2 - Rash Date Reviewed: 06/12/2025 Reviewed by: Maribel Odonnell MA - Fully Assessed Prescriptions as of 06/14/2025 - aspirin, enteric coated (ECOTRIN LOW STRENGTH) 81 mg EC tablet Take 1 tablet by mouth two times a day for 21 days. TO BEGIN 24 HOURS POST OP Patient should start on April 27, 2025. - docusate sodium (COLACE) 100 mg capsule Take 1 capsule by mouth two times a day. - ondansetron (ZOFRAN) 4 mg tablet Take 1 tablet by mouth every 8 hours as needed for nausea/vomiting. - omeprazole (PRILOSEC) 40 mg capsule Take 1 capsule by mouth once daily. - gabapentin (NEURONTIN) 300 mg capsule Take 1 capsule by mouth three times a day for 180 days. - rizatriptan (MAXALT ARMORING MACHINE OPERATOR) 10 mg disintegrating tablet Take 1 tablet (10 mg) by mouth as needed. May repeat in 2 hours if needed - metFORMIN ER (GLUCOPHAGE XR) 500 mg 24 hr tablet Take 1 tablet by mouth daily with breakfast. - spironolactone (ALDACTONE) 50 mg tablet Take 1 tablet by mouth two times a day. - rosuvastatin (CRESTOR) 5 mg tablet Take 2 tablets by mouth daily at bedtime. - amitriptyline (ELAVIL) 10 mg tablet Take 1 tablet by mouth daily at bedtime. - estradiol (ESTRACE) 1 mg tablet [employer]: Addendum Therapy (PT/OT/Speech/Resp) ID: [id number] 06/14/2025 9:23 AM Author: MACEY KAISER Signed by MACEY KAISER PT on 06/14/2025 at 9:23 AM * * * This document replaces document [id number] * * * Document text: Program_ID:[id number] Access Code: [email or web address] URL: [email or web address] Date: 06-14-2025 Prepared By: Macey Kaiser Program Notes Exercises - Side Stepping with Resistance at Ankles - 1 x daily - 7 x weekly - 6 sets - 20 reps - Plank on Knees - 2 x daily - 7 x weekly - 2 sets - 3 reps - Sidelying Hip Abduction - 2 x daily - 7 x weekly - 2 sets - 10 reps - Lateral Step Down - 1 x daily - 7 x weekly - 4 sets - 8 reps -------- [facility] THERAPY NTon 06-14-2025 THERAPY NT HNO ID: [id number] Author: MACEY KAISER, PT Service: ? Author Type: Physical Therapist Type: Therapy (PT/OT/Speech/Resp) Filed: 06/14/2025 09:23 Note Text: Program_ID:[id number] Access Code: [email or web address] URL: [email or web address] Date: 06-14-2025 Prepared By: Macey Kaiser Program Notes Exercises - Side Stepping with Resistance at Ankles - 1 x daily - 7 x weekly - 6 sets - 20 reps - Plank on Knees - 2 x daily - 7 x weekly - 2 sets - 3 reps - Sidelying Hip Abduction - 2 x daily - 7 x weekly - 2 sets - 10 reps - Lateral Step Down - 1 x daily - 7 x weekly - 4 sets - 8 reps [facility] CNOVon 06-12-2025 CNOV Office Visit ([facility]) MACEY CAMPBELL ([id number]) 1990 F Date Time Provider Department 06/12/25 1:50 PM DAR VERMA [facility] During your visit today, we recorded the following information about you: Dar Verma MD 06/12/2025 2:20 PM Signed GLOBAL/POSTOP ENCOUNTER Chief Complaint: s/p left hip arthroscopic labrum repair, femoroplasty, acetabuloplasty, capsular closure (DOS: 04/26/2025) Macey Campbell is a 35 year old year old female who returned today for 6 weeks and 5 days post op: 04/26/25. HPI: Pain: appropriate Function: FWB Therapy: currently ongoing ROS reviewed Allergies, medications, past surgical history and past medical history were reviewed per this encounter. Physical Examination: Region: Knee :eft Exam: Incision: healing without evidence of infection AROM: 120 degrees of hip flexion, 25 degrees of internal rotation, 45 degrees of external rotation PROM: normal Swelling/Effusion: none Stability: normal Muscle Strength: normal Negative FLORES URENA ER is to level 2 compared to level 1 Assessment and Plan: Status post left hip arthroscopy with labral repair April 26, 2025. Doing extremely well. May progress to hip opening stretches. Okay to be forceful with external rotation. A copy of the stretches have been provided. No walking for exercise until closer to 10 to 12 weeks. No squatting below 90 degrees for the same time. Follow-up with me in 2 months. We have provided her with a letter for work so that she may work 4 days per week. Dar Verma MD Sports Medicine/Orthopaedic Surgery Dar Verma MD 06/12/2025 1:40 PM Signed Avoid walking for exercise Pool exercise as tolerated - walking, gentle freestyle, deep water jog with belt. Avoid - breast stroke, scissor kick, treading water Begin LIZETTE/ Figure 4 stretch 10 - 30 count hold 3 reps 2-3 sets per day - can start with left heel resting next to or below left knee and progress to left heel resting above leftknee per tolerance Richard stretch off edge or end of bed - 30 count hold 3 reps 2-3 sets per day Right knee to chest Advance bike for cardio with PT guidance. Stay seated and do not clip in or have feet secured to pedals Advance to elliptical per PT guidance - avoid inclines/ declines Upper body lifting - as long feet are not in contact with ground. Allergies As of Date: 06/12/2025 Noted Allergy Reaction CLEOCIN (CLINDAMYCIN) 10/16/2021 2 - Rash SULFA (SULFONAMIDE ANTIBIOTICS) 12/13/2010 2 - Rash Date Reviewed: 06/12/2025 Reviewed by: Maribel Odonnell MA - Fully Assessed Reason for Visit: Pain [78] Post Op [174] Primary Visit Diagnosis:Status post arthroscopy of hip [Z98.890] Prescriptions as of 06/12/2025 - aspirin, enteric coated (ECOTRIN LOW STRENGTH) 81 mg EC tablet Take 1 tablet by mouth two times a day for 21 days. TO BEGIN 24 HOURS POST OP Patient should start on April 27, 2025. - docusate sodium (COLACE) 100 mg capsule Take 1 capsule by mouth two times a day. - ondansetron (ZOFRAN) 4 mg tablet Take 1 tablet by mouth every 8 hours as needed for nausea/vomiting. - omeprazole (PRILOSEC) 40 mg capsule Take 1 capsule by mouth once daily. - gabapentin (NEURONTIN) 300 mg capsule Take 1 capsule by mouth three times a day for 180 days. - rizatriptan (MAXALT ARMORING MACHINE OPERATOR) 10 mg disintegrating tablet Take 1 tablet (10 mg) by mouth as needed. May repeat in 2 hours if needed - metFORMIN ER (GLUCOPHAGE XR) 500 mg 24 hr tablet Take 1 tablet by mouth daily with breakfast. - spironolactone (ALDACTONE) 50 mg tablet Take 1 tablet by mouth two times a day. - rosuvastatin (CRESTOR) 5 mg tablet Take 2 tablets by mouth daily at bedtime. - amitriptyline (ELAVIL) 10 mg tablet Take 1 tablet by mouth daily at bedtime. - estradiol (ESTRACE) 1 mg tablet Problem List As Of Date 06/12/2025 Noted Resolved Gastroenteritis [K52.9] 12/13/2010 Abdominal pain, acute, right upper quadrant [R1*12/13/2010 Tachycardia [R00.0] 12/13/2010 Menstrual irregularity [N92.6] 12/13/2010 Infertility associated with anovulation [N97.0] 09/13/2012 PCOS (polycystic ovarian syndrome) [E28.2] 09/27/2012 12/31/2021 Pain, upper back [M54.9] 09/07/2013 01/21/2022 Pelvic pain in female [R10.2] 10/31/2013 Pain in joint, shoulder region [M25.519] 01/10/2015 01/21/2022 GERD without esophagitis [K21.9] 12/31/2021 Obesity, Class I, BMI 30-34.9 [E66.811] 12/31/2021 Tobacco use disorder [F17.200] 12/31/2021 Hyperglycemia [R73.9] 01/21/2022 Mixed hyperlipidemia [E78.2] 04/16/2022 Acute back pain with sciatica, left [M54.42] 06/28/2024 Pain of left hip [M25.552] 06/28/2024 Chronic migraine with aura without status migra*04/12/2025 Tear of left acetabular labrum [S73.192A] 05/01/2025 Other instructions from your clinician: Avoid walking for exercise Pool exercise as tolerated - walking, gentle freestyl (more content not included)... Normal [facility] CNTHERAPYon 06-07-2025 CNTHERAPY OT/PT/Speech Visit (PTWS) MACEY CAMPBELL ([id number]) 1990 F Date Time Provider Department 06/07/25 9:45 AM MACEY KAISER PTMARCO Date Time Provider Department Center 06/07/2025 9:45 AM [id number] KAISER PTMARCO Vásquez Reason for Visit: Physical Therapy [503] Primary Visit Diagnosis:Tear of left acetabular labrum, initial encounter [S73.192A] Allergies As of Date: 06/07/2025 Noted Allergy Reaction CLEOCIN (CLINDAMYCIN) 10/16/2021 2 - Rash SULFA (SULFONAMIDE ANTIBIOTICS) 12/13/2010 2 - Rash Date Reviewed: 05/16/2025 Reviewed by: Alma Mcbride MA - Fully Assessed Prescriptions as of 06/07/2025 - aspirin, enteric coated (ECOTRIN LOW STRENGTH) 81 mg EC tablet Take 1 tablet by mouth two times a day for 21 days. TO BEGIN 24 HOURS POST OP Patient should start on April 27, 2025. - docusate sodium (COLACE) 100 mg capsule Take 1 capsule by mouth two times a day. - ondansetron (ZOFRAN) 4 mg tablet Take 1 tablet by mouth every 8 hours as needed for nausea/vomiting. - omeprazole (PRILOSEC) 40 mg capsule Take 1 capsule by mouth once daily. - gabapentin (NEURONTIN) 300 mg capsule Take 1 capsule by mouth three times a day for 180 days. - rizatriptan (MAXALT ARMORING MACHINE OPERATOR) 10 mg disintegrating tablet Take 1 tablet (10 mg) by mouth as needed. May repeat in 2 hours if needed - metFORMIN ER (GLUCOPHAGE XR) 500 mg 24 hr tablet Take 1 tablet by mouth daily with breakfast. - spironolactone (ALDACTONE) 50 mg tablet Take 1 tablet by mouth two times a day. - rosuvastatin (CRESTOR) 5 mg tablet Take 2 tablets by mouth daily at bedtime. - amitriptyline (ELAVIL) 10 mg tablet Take 1 tablet by mouth daily at bedtime. - estradiol (ESTRACE) 1 mg tablet [employer]: Addendum Therapy (PT/OT/Speech/Resp) ID: [id number] 06/07/2025 10:02 AM Author: MACEY KAISER Signed by MACEY KAISER PT on 06/07/2025 at 10:02 AM * * * This document replaces document [id number] * * * Document text: Program_ID:[id number] Access Code: [email or web address] URL: [email or web address] Date: 06-07-2025 Prepared By: Macey Kaiser Program Notes Exercises - Supine Bridge - 2 x daily - 7 x weekly - 2 sets - 20 reps - Single Leg Stance - 2 x daily - 7 x weekly - 1 sets - 5 reps - Squat with Chair Touch - 2 x daily - 7 x weekly - 2 sets - 5 reps - Plank on Knees - 2 x daily - 7 x weekly - 2 sets - 3 reps - Sidelying Hip Abduction - 2 x daily - 7 x weekly - 2 sets - 10 reps - Supine March - 2-3 x daily - 7 x weekly - 3 sets - 60 reps -------- [facility] THERAPY NTon 06-07-2025 THERAPY NT HNO ID: [id number] Author: MACEY KAISER PT Service: ? Author Type: Physical Therapist Type: Therapy (PT/OT/Speech/Resp) Filed: 06/07/2025 10:02 Note Text: Program_ID:[id number] Access Code: [email or web address] URL: [email or web address] Date: 06-07-2025 Prepared By: Macey Kaiser Program Notes Exercises - Supine Bridge - 2 x daily - 7 x weekly - 2 sets - 20 reps - Single Leg Stance - 2 x daily - 7 x weekly - 1 sets - 5 reps - Squat with Chair Touch - 2 x daily - 7 x weekly - 2 sets - 5 reps - Plank on Knees - 2 x daily - 7 x weekly - 2 sets - 3 reps - Sidelying Hip Abduction - 2 x daily - 7 x weekly - 2 sets - 10 reps - Supine March - 2-3 x daily - 7 x weekly - 3 sets - 60 reps Normal [facility] CNTHERAPYon 05-31-2025 CNTHERAPY OT/PT/Speech Visit (PTWS) MACEY CAMPBELL ([id number]) 1990 F Date Time Provider Department 05/31/25 9:00 AM MACEY KAISER PTWS Date Time Provider Department [place] 05/31/2025 9:00 AM [id number] KAISER PTWS Rubin Vásquez Reason for Visit: PT Progress Note [1596] Primary Visit Diagnosis:Tear of left acetabular labrum, initial encounter [S73.192A] Allergies As of Date: 05/31/2025 Noted Allergy Reaction CLEOCIN (CLINDAMYCIN) 10/16/2021 2 - Rash SULFA (SULFONAMIDE ANTIBIOTICS) 12/13/2010 2 - Rash Date Reviewed: 05/16/2025 Reviewed by: Alma Mcbride MA - Fully Assessed Prescriptions as of 06/14/2025 - aspirin, enteric coated (ECOTRIN LOW STRENGTH) 81 mg EC tablet Take 1 tablet by mouth two times a day for 21 days. TO BEGIN 24 HOURS POST OP Patient should start on April 27, 2025. - docusate sodium (COLACE) 100 mg capsule Take 1 capsule by mouth two times a day. - ondansetron (ZOFRAN) 4 mg tablet Take 1 tablet by mouth every 8 hours as needed for nausea/vomiting. - omeprazole (PRILOSEC) 40 mg capsule Take 1 capsule by mouth once daily. - gabapentin (NEURONTIN) 300 mg capsule Take 1 capsule by mouth three times a day for 180 days. - rizatriptan (MAXALT ARMORING MACHINE OPERATOR) 10 mg disintegrating tablet Take 1 tablet (10 mg) by mouth as needed. May repeat in 2 hours if needed - metFORMIN ER (GLUCOPHAGE XR) 500 mg 24 hr tablet Take 1 tablet by mouth daily with breakfast. - spironolactone (ALDACTONE) 50 mg tablet Take 1 tablet by mouth two times a day. - rosuvastatin (CRESTOR) 5 mg tablet Take 2 tablets by mouth daily at bedtime. - amitriptyline (ELAVIL) 10 mg tablet Take 1 tablet by mouth daily at bedtime. - estradiol (ESTRACE) 1 mg tablet [employer]: Addendum Therapy (PT/OT/Speech/Resp) ID: [id number] 05/31/2025 9:26 AM Author: MACEY KAISER Signed by MACEY KAISER PT on 05/31/2025 at 9:27 AM * * * This document replaces document [id number] * * * Document text: Program_ID:[id number] Access Code: [email or web address] URL: [email or web address] Date: 05-31-2025 Prepared By: Macey Kaiser Program Notes Exercises - Quadruped Rocking Slow - 2 x daily - 7 x weekly - 2 sets - 20 reps - Supine Bridge - 2 x daily - 7 x weekly - 2 sets - 20 reps - Single Leg Stance - 2 x daily - 7 x weekly - 1 sets - 5 reps - Squat with Chair Touch - 2 x daily - 7 x weekly - 2 sets - 5 reps - Plank on Knees - 2 x daily - 7 x weekly - 2 sets - 3 reps - Sidelying Hip Abduction - 2 x daily - 7 x weekly - 2 sets - 10 reps -------- [facility] THERAPY NTon 05-31-2025 THERAPY NT HNO ID: [id number] Author: MACEY KAISER PT Service: ? Author Type: Physical Therapist Type: Therapy (PT/OT/Speech/Resp) Filed: 05/31/2025 09:27 Note Text: Program_ID:[id number] Access Code: [email or web address] URL: [email or web address] Date: 05-31-2025 Prepared By: Macey Kaiser Program Notes Exercises - Quadruped Rocking Slow - 2 x daily - 7 x weekly - 2 sets - 20 reps - Supine Bridge - 2 x daily - 7 x weekly - 2 sets - 20 reps - Single Leg Stance - 2 x daily - 7 x weekly - 1 sets - 5 reps - Squat with Chair Touch - 2 x daily - 7 x weekly - 2 sets - 5 reps - Plank on Knees - 2 x daily - 7 x weekly - 2 sets - 3 reps - Sidelying Hip Abduction - 2 x daily - 7 x weekly - 2 sets - 10 reps [facility] CNTHERAPYon 05-24-2025 CNTHERAPY OT/PT/Speech Visit (PTWS) MACEY CAMPBELL ([id number]) 1990 F Date Time Provider Department 05/24/25 12:45 PM MACEY KAISER PTWS Date Time Provider Department [place] 05/24/2025 12:45 PM [id number] KAISER PTWS Rubin Vásquez Reason for Visit: Physical Therapy [503] Primary Visit Diagnosis:Tear of left acetabular labrum, initial encounter [S73.192A] Allergies As of Date: 05/24/2025 Noted Allergy Reaction CLEOCIN (CLINDAMYCIN) 10/16/2021 2 - Rash SULFA (SULFONAMIDE ANTIBIOTICS) 12/13/2010 2 - Rash Date Reviewed: 05/16/2025 Reviewed by: Alma Mcbride MA - Fully Assessed Prescriptions as of 05/24/2025 - aspirin, enteric coated (ECOTRIN LOW STRENGTH) 81 mg EC tablet Take 1 tablet by mouth two times a day for 21 days. TO BEGIN 24 HOURS POST OP Patient should start on April 27, 2025. - docusate sodium (COLACE) 100 mg capsule Take 1 capsule by mouth two times a day. - ondansetron (ZOFRAN) 4 mg tablet Take 1 tablet by mouth every 8 hours as needed for nausea/vomiting. - omeprazole (PRILOSEC) 40 mg capsule Take 1 capsule by mouth once daily. - gabapentin (NEURONTIN) 300 mg capsule Take 1 capsule by mouth three times a day for 180 days. - rizatriptan (MAXALT ARMORING MACHINE OPERATOR) 10 mg disintegrating tablet Take 1 tablet (10 mg) by mouth as needed. May repeat in 2 hours if needed - metFORMIN ER (GLUCOPHAGE XR) 500 mg 24 hr tablet Take 1 tablet by mouth daily with breakfast. - spironolactone (ALDACTONE) 50 mg tablet Take 1 tablet by mouth two times a day. - rosuvastatin (CRESTOR) 5 mg tablet Take 2 tablets by mouth daily at bedtime. - amitriptyline (ELAVIL) 10 mg tablet Take 1 tablet by mouth daily at bedtime. - estradiol (ESTRACE) 1 mg tablet [employer]: Addendum Therapy (PT/OT/Speech/Resp) ID: [id number] 05/24/2025 1:13 PM Author: MACEY KAISER Signed by MACEY KAISER PT on 05/24/2025 at 1:13 PM * * * This document replaces document [id number] * * * Document text: Program_ID:[id number] Access Code: [email or web address] URL: [email or web address] Date: 05-24-2025 Prepared By: Macey Kaiser Program Notes Exercises - Standing Gluteal Sets - 1 x daily - 7 x weekly - 2 sets - 10 reps - Prone Hip Internal Rotation AROM - 2-3 x daily - 7 x weekly - 2 sets - 15 reps - Seated Transversus Abdominis Bracing - 1 x daily - 7 x weekly - 4 sets - 10 reps - Modified Richard Stretch - 2-3 x daily - 7 x weekly - 1 sets - 3 reps - Supine Hip and Knee Flexion AROM with [place] Ball - 2-3 x daily - 7 x weekly - 2 sets - 20 reps - Half Kneeling Hip Flexor Stretch - x daily - 7 x weekly - 2 sets - 15 reps - Prone Quadriceps Stretch with Strap - 2-3 x daily - 7 x weekly - 2 sets - 3 reps -------- [facility] THERAPY NTon 05-24-2025 THERAPY NT HNO ID: [id number] Author: MACEY KAISER PT Service: ? Author Type: Physical Therapist Type: Therapy (PT/OT/Speech/Resp) Filed: 05/24/2025 13:13 Note Text: Program_ID:[id number] Access Code: [email or web address] URL: [email or web address] Date: 05-24-2025 Prepared By: Macey Kaiser Program Notes Exercises - Standing Gluteal Sets - 1 x daily - 7 x weekly - 2 sets - 10 reps - Prone Hip Internal Rotation AROM - 2-3 x daily - 7 x weekly - 2 sets - 15 reps - Seated Transversus Abdominis Bracing - 1 x daily - 7 x weekly - 4 sets - 10 reps - Modified Richard Stretch - 2-3 x daily - 7 x weekly - 1 sets - 3 reps - Supine Hip and Knee Flexion AROM with [place] Ball - 2-3 x daily - 7 x weekly - 2 sets - 20 reps - Half Kneeling Hip Flexor Stretch - x daily - 7 x weekly - 2 sets - 15 reps - Prone Quadriceps Stretch with Strap - 2-3 x daily - 7 x weekly - 2 sets - 3 reps [facility] CNTHERAPYon 05-17-2025 CNTHERAPY OT/PT/Speech Visit (PTWS) MACEY CAMPBELL ([id number]) 1990 F Date Time Provider Department 05/17/25 12:45 PM MACEY KAISER PTWS Date Time Provider Department [place] 05/17/2025 12:45 PM [id number] KAISER PTWS Rubin Martin Reason for Visit: Physical Therapy [503] Primary Visit Diagnosis:Tear of left acetabular labrum, initial encounter [S73.192A] Allergies As of Date: 05/17/2025 Noted Allergy Reaction CLEOCIN (CLINDAMYCIN) 10/16/2021 2 - Rash SULFA (SULFONAMIDE ANTIBIOTICS) 12/13/2010 2 - Rash Date Reviewed: 05/16/2025 Reviewed by: Alma Mcbride MA - Fully Assessed Prescriptions as of 05/17/2025 - aspirin, enteric coated (ECOTRIN LOW STRENGTH) 81 mg EC tablet Take 1 tablet by mouth two times a day for 21 days. TO BEGIN 24 HOURS POST OP Patient should start on April 27, 2025. - docusate sodium (COLACE) 100 mg capsule Take 1 capsule by mouth two times a day. - ondansetron (ZOFRAN) 4 mg tablet Take 1 tablet by mouth every 8 hours as needed for nausea/vomiting. - omeprazole (PRILOSEC) 40 mg capsule Take 1 capsule by mouth once daily. - gabapentin (NEURONTIN) 300 mg capsule Take 1 capsule by mouth three times a day for 180 days. - rizatriptan (MAXALT ARMORING MACHINE OPERATOR) 10 mg disintegrating tablet Take 1 tablet (10 mg) by mouth as needed. May repeat in 2 hours if needed - metFORMIN ER (GLUCOPHAGE XR) 500 mg 24 hr tablet Take 1 tablet by mouth daily with breakfast. - spironolactone (ALDACTONE) 50 mg tablet Take 1 tablet by mouth two times a day. - rosuvastatin (CRESTOR) 5 mg tablet Take 2 tablets by mouth daily at bedtime. - amitriptyline (ELAVIL) 10 mg tablet Take 1 tablet by mouth daily at bedtime. - estradiol (ESTRACE) 1 mg tablet [employer]: Addendum Therapy (PT/OT/Speech/Resp) ID: [id number] 05/17/2025 1:17 PM Author: MACEY KAISER Signed by MACEY KAISER PT on 05/17/2025 at 1:17 PM * * * This document replaces document [id number] * * * Document text: Program_ID:[id number] Access Code: [email or web address] URL: [email or web address] Date: 05-17-2025 Prepared By: Macey Kaiser Program Notes Exercises - Standing Hip Internal Rotation AAROM on Stool - 1 x daily - 7 x weekly - 2 sets - 15 reps - Standing Gluteal Sets - 1 x daily - 7 x weekly - 2 sets - 10 reps - Prone Hip Internal Rotation AROM - 1 x daily - 7 x weekly - 2 sets - 15 reps - cc Hip Isometric External Rotation Prone - 1 x daily - 7 x weekly - 2 sets - 10 reps - Prone Knee Flexion - 1 x daily - 7 x weekly - 2 sets - 15 reps - Seated Transversus Abdominis Bracing - 1 x daily - 7 x weekly - 4 sets - 10 reps - Supine Hip Adduction Isometric with Ball - 1 x daily - 7 x weekly - 2 sets - 5 reps -------- [facility] THERAPY NTon 05-17-2025 THERAPY NT HNO ID: [id number] Author: MACEY KAISER PT Service: ? Author Type: Physical Therapist Type: Therapy (PT/OT/Speech/Resp) Filed: 05/17/2025 13:17 Note Text: Program_ID:[id number] Access Code: [email or web address] URL: [email or web address] Date: 07-16-2025 Prepared By: Macey Kaiser Program Notes Exercises - Standing Hip Internal Rotation AAROM on Stool - 1 x daily - 7 x weekly - 2 sets - 15 reps - Standing Gluteal Sets - 1 x daily - 7 x weekly - 2 sets - 10 reps - Prone Hip Internal Rotation AROM - 1 x daily - 7 x weekly - 2 sets - 15 reps - cc Hip Isometric External Rotation Prone - 1 x daily - 7 x weekly - 2 sets - 10 reps - Prone Knee Flexion - 1 x daily - 7 x weekly - 2 sets - 15 reps - Seated Transversus Abdominis Bracing - 1 x daily - 7 x weekly - 4 sets - 10 reps - Supine Hip Adduction Isometric with Ball - 1 x daily - 7 x weekly - 2 sets - 5 reps Normal [facility] CNOVon 05-16-2025 CNOV Office Visit ([facility]) MACEY CAMPBELL ([id number]) 1990 F Date Time Provider Department 05/16/25 9:30 AM MAIKEL HECTOR [facility] During your visit today, we recorded the following information about you: Maikel Hector PA-C 05/16/2025 10:03 AM Signed GLOBAL/POSTOP ENCOUNTER Chief Complaint: PO left hip HPI: Macey Campbell is a 34 year old year old female who returned today for 2.5 weeks post op: s/p left hip arthroscopic labrum repair, femoroplasty, acetabuloplasty, capsular closure (DOS: 04/26/2025). Pain: controlled Function: improving Therapy: outpatient PT Number of narcotics: 12 tablets ROS reviewed Allergies, medications, past surgical history and past medical history were reviewed per this encounter. Physical Examination: Region: Hip LEFT Exam: Incision: healing without evidence of infection, sutures in tact AROM: deferred PROM: deferred Swelling/Effusion: none Muscle Strength: deferred DP and PT pulses palpable Negative leslie's test 5/5 ankle DF and PF Assessment and Plan: (Z98.890) Status post arthroscopy of hip (primary encounter diagnosis) (Z98.890) Post-operative state 2.5 weeks s/p LEFT hip scope, doing very well. - OK to wean brace - Weightbearing progression, per protocol. - Continue PT and HEP, per protocol - Reviewed appropriate post operative pain management. - Continue DVT ppx as outlined - Sutures removed. No submerging, scrubbing, topical ointments/lotions x 6 weeks post op. - Follow up in [address] Verma, as planned - RTW letter with restrictions provided. Maikel Hector PA-C Sports Medicine/Orthopaedic Surgery Maikel Hector PA-C 05/16/2025 9:50 AM Signed - OK to shower with surgical site uncovered. - No submerging, scrubbing, topical ointments/lotions x 6 weeks post op. - Remove steri strips in 2 weeks if still adhered to the skin - Continue physical therapy and HEP - Follow up as planned with Dr. Verma Allergies As of Date: 05/16/2025 Noted Allergy Reaction CLEOCIN (CLINDAMYCIN) 10/16/2021 2 - Rash SULFA (SULFONAMIDE ANTIBIOTICS) 12/13/2010 2 - Rash Date Reviewed: 05/16/2025 Reviewed by: Alma Mcbride MA - Fully Assessed Reason for Visit: Post Op [174] Cmt: DOS 04/26/2025 Primary Visit Diagnosis:Status post arthroscopy of hip [Z98.890] Other Visit Diagnosis:Post-opera tive state [Z98.890] Prescriptions as of 05/16/2025 - aspirin, enteric coated (ECOTRIN LOW STRENGTH) 81 mg EC tablet Take 1 tablet by mouth two times a day for 21 days. TO BEGIN 24 HOURS POST OP Patient should start on April 27, 2025. - docusate sodium (COLACE) 100 mg capsule Take 1 capsule by mouth two times a day. - ondansetron (ZOFRAN) 4 mg tablet Take 1 tablet by mouth every 8 hours as needed for nausea/vomiting. - omeprazole (PRILOSEC) 40 mg capsule Take 1 capsule by mouth once daily. - gabapentin (NEURONTIN) 300 mg capsule Take 1 capsule by mouth three times a day for 180 days. - rizatriptan (MAXALT ARMORING MACHINE OPERATOR) 10 mg disintegrating tablet Take 1 tablet (10 mg) by mouth as needed. May repeat in 2 hours if needed - metFORMIN ER (GLUCOPHAGE XR) 500 mg 24 hr tablet Take 1 tablet by mouth daily with breakfast. - spironolactone (ALDACTONE) 50 mg tablet Take 1 tablet by mouth two times a day. - rosuvastatin (CRESTOR) 5 mg tablet Take 2 tablets by mouth daily at bedtime. - amitriptyline (ELAVIL) 10 mg tablet Take 1 tablet by mouth daily at bedtime. - estradiol (ESTRACE) 1 mg tablet Problem List As Of Date 05/16/2025 Noted Resolved Gastroenteritis [K52.9] 12/13/2010 Abdominal pain, acute, right upper quadrant [R1*12/13/2010 Tachycardia [R00.0] 12/13/2010 Menstrual irregularity [N92.6] 12/13/2010 Infertility associated with anovulation [N97.0] 09/13/2012 PCOS (polycystic ovarian syndrome) [E28.2] 09/27/2012 12/31/2021 Pain, upper back [M54.9] 09/07/2013 01/21/2022 Pelvic pain in female [R10.2] 10/31/2013 Pain in joint, shoulder region [M25.519] 01/10/2015 01/21/2022 GERD without esophagitis [K21.9] 12/31/2021 Obesity, Class I, BMI 30-34.9 [E66.811] 12/31/2021 Tobacco use disorder [F17.200] 12/31/2021 Hyperglycemia [R73.9] 01/21/2022 Mixed hyperlipidemia [E78.2] 04/16/2022 Acute back pain with sciatica, left [M54.42] 06/28/2024 Pain of left hip [M25.552] 06/28/2024 Chronic migraine with aura without status migra*04/12/2025 Tear of left acetabular labrum [S73.192A] 05/01/2025 Other instructions from your clinician: - OK to shower with surgical site uncovered. - No submerging, scrubbing, topical ointments/lotions x 6 weeks post op. - Remove steri strips in 2 weeks if still adhered to the skin - Continue physical therapy and HEP - Follow up as planned with Dr. Verma Disposition: Return in 27 days (on 06/12/2025). Follow-up and Disposition History for Encounter Date Provider Department Center 7 (more content not included)... [facility] CNTHERAPYon 05-10-2025 CNTHERAPY OT/PT/Speech Visit (PTWS) MACEY CAMPBELL ([id number]) 1990 F Date Time Provider Department 05/10/25 1:30 PM MACEY [facility] Date Time Provider Department Center 05/10/2025 1:30 PM [id number] Vásquez Reason for Visit: Physical Therapy [503] Primary Visit Diagnosis:Tear of left acetabular labrum, initial encounter [S73.192A] Allergies As of Date: 05/10/2025 Noted Allergy Reaction CLEOCIN (CLINDAMYCIN) 10/16/2021 2 - Rash SULFA (SULFONAMIDE ANTIBIOTICS) 12/13/2010 2 - Rash Date Reviewed: 04/26/2025 Reviewed by: Dar Campbell, RN - Fully Assessed Prescriptions as of 05/10/2025 - aspirin, enteric coated (ECOTRIN LOW STRENGTH) 81 mg EC tablet Take 1 tablet by mouth two times a day for 21 days. TO BEGIN 24 HOURS POST OP Patient should start on April 27, 2025. - docusate sodium (COLACE) 100 mg capsule Take 1 capsule by mouth two times a day. - ondansetron (ZOFRAN) 4 mg tablet Take 1 tablet by mouth every 8 hours as needed for nausea/vomiting. - diclofenac, EC, (VOLTAREN) 75 mg EC tablet Take 1 tablet by mouth two times a day for 14 days. for pain. Patient should start on April 29, 2025. - omeprazole (PRILOSEC) 40 mg capsule Take 1 capsule by mouth once daily. - gabapentin (NEURONTIN) 300 mg capsule Take 1 capsule by mouth three times a day for 180 days. - rizatriptan (MAXALT ARMORING MACHINE OPERATOR) 10 mg disintegrating tablet Take 1 tablet (10 mg) by mouth as needed. May repeat in 2 hours if needed - metFORMIN ER (GLUCOPHAGE XR) 500 mg 24 hr tablet Take 1 tablet by mouth daily with breakfast. - spironolactone (ALDACTONE) 50 mg tablet Take 1 tablet by mouth two times a day. - rosuvastatin (CRESTOR) 5 mg tablet Take 2 tablets by mouth daily at bedtime. - amitriptyline (ELAVIL) 10 mg tablet Take 1 tablet by mouth daily at bedtime. - estradiol (ESTRACE) 1 mg tablet [place]: Addendum Therapy (PT/OT/Speech/Resp) ID: [id number] 05/10/2025 1:55 PM Author: MACEY KAISER Signed by MACEY KAISER PT on 05/10/2025 at 1:55 PM * * * This document replaces document [id number] * * * Document text: Program_ID:[id number] Access Code: [email or web address] URL: [email or web address] Date: 05-10-2025 Prepared By: Macey Kaiser Program Notes Exercises - Standing Hip Internal Rotation AAROM on Stool - 2 x daily - 7 x weekly - 2 sets - 15 reps - Standing Gluteal Sets - 2 x daily - 7 x weekly - 2 sets - 10 reps - Prone Hip Internal Rotation AROM - 2 x daily - 7 x weekly - 2 sets - 15 reps - cc Hip Isometric External Rotation Prone - 2 x daily - 7 x weekly - 2 sets - 10 reps - Prone Knee Flexion - 2 x daily - 7 x weekly - 2 sets - 15 reps - Seated Transversus Abdominis Bracing - 2 x daily - 7 x weekly - 4 sets - 10 reps -------- [facility] THERAPY NTon 05-10-2025 THERAPY NT HNO ID: [id number] Author: MACEY KAISER PT Service: ? Author Type: Physical Therapist Type: Therapy (PT/OT/Speech/Resp) Filed: 05/10/2025 13:55 Note Text: Program_ID:[id number] Access Code: [email or web address] URL: [email or web address] Date: 05-10-2025 Prepared By: Macey Kaiser Program Notes Exercises - Standing Hip Internal Rotation AAROM on Stool - 2 x daily - 7 x weekly - 2 sets - 15 reps - Standing Gluteal Sets - 2 x daily - 7 x weekly - 2 sets - 10 reps - Prone Hip Internal Rotation AROM - 2 x daily - 7 x weekly - 2 sets - 15 reps - cc Hip Isometric External Rotation Prone - 2 x daily - 7 x weekly - 2 sets - 10 reps - Prone Knee Flexion - 2 x daily - 7 x weekly - 2 sets - 15 reps - Seated Transversus Abdominis Bracing - 2 x daily - 7 x weekly - 4 sets - 10 reps [facility] CNTHERAPYon 05-01-2025 CNTHERAPY OT/PT/Speech Visit (PTWS) MACEY CAMPBELL ([id number]) 1990 F Date Time Provider Department 05/01/25 11:00 AM [facility] Date Time Provider Department [place] 05/01/2025 11:00 AM [id number] [facility] Vásquez Reason for Visit: PT Eval [747] Primary Visit Diagnosis:Tear of left acetabular labrum, initial encounter [S73.192A] Allergies As of Date: 05/01/2025 Noted Allergy Reaction CLEOCIN (CLINDAMYCIN) 10/16/2021 2 - Rash SULFA (SULFONAMIDE ANTIBIOTICS) 12/13/2010 2 - Rash Date Reviewed: 04/26/2025 Reviewed by: Dar Campbell, YASMEEN - Fully Assessed Prescriptions as of 05/16/2025 - aspirin, enteric coated (ECOTRIN LOW STRENGTH) 81 mg EC tablet Take 1 tablet by mouth two times a day for 21 days. TO BEGIN 24 HOURS POST OP Patient should start on April 27, 2025. - docusate sodium (COLACE) 100 mg capsule Take 1 capsule by mouth two times a day. - ondansetron (ZOFRAN) 4 mg tablet Take 1 tablet by mouth every 8 hours as needed for nausea/vomiting. - omeprazole (PRILOSEC) 40 mg capsule Take 1 capsule by mouth once daily. - gabapentin (NEURONTIN) 300 mg capsule Take 1 capsule by mouth three times a day for 180 days. - rizatriptan (MAXALT ARMORING MACHINE OPERATOR) 10 mg disintegrating tablet Take 1 tablet (10 mg) by mouth as needed. May repeat in 2 hours if needed - metFORMIN ER (GLUCOPHAGE XR) 500 mg 24 hr tablet Take 1 tablet by mouth daily with breakfast. - spironolactone (ALDACTONE) 50 mg tablet Take 1 tablet by mouth two times a day. - rosuvastatin (CRESTOR) 5 mg tablet Take 2 tablets by mouth daily at bedtime. - amitriptyline (ELAVIL) 10 mg tablet Take 1 tablet by mouth daily at bedtime. - estradiol (ESTRACE) 1 mg tablet [facility] ANES POSTPROC EVALon 025 ANES POSTPROC EVAL HNO ID: [id number] Author: VALERIE ODONNELL MD Service: Anesthesiology Author Type: Anesthesiologist Type: Anesthesia Postprocedure Evaluation Filed: 04/26/2025 11:27 Note Text: POST ANESTHESIA EVALUATION NOTE : 1990 Procedure Summary Date: 04/26/25 Room / Location: [facility] / [facility] Anesthesia Start: 0846 Anesthesia Stop: 1101 Procedures: ARTHROSCOPY HIP W/ LABRAL REPAIR (Left: Hip) ARTHROSCOPY HIP W/ FEMOROPLASTY (Left: Hip) ARTHROSCOPY HIP SURGICAL W/ ACETABULOPLASTY (Left: Hip) Diagnosis: Tear of left acetabular labrum, initial encounter (Tear of left acetabular labrum, initial encounter [S73.192A]) Surgeons: Dar Verma MD Responsible Provider: Valerie Odonnell MD Anesthesia Type: general ASA Status: 2 Anesthesia Type: general Airway Type: ETT Last Vitals Vitals Value Taken Time BP 102/72 04/26/25 1117 Temp 36.6 ?C (97.8 ?F) 04/26/25 1100 Pulse 88 04/26/25 1127 Resp 16 04/26/25 1127 SpO2 98 % 04/26/25 1127 Vitals shown include unfiled device data. Post Anesthesia Patient Status Patient Evaluation: PACU. PACU/ICU Patient Condition: stable. Anticipated Disposition: phase 2 then home. Neurological Status: aware and responsive. Pulmonary Status: breathing comfortably on room air Airway Control: returned to baseline unsupported. Cardiovascular Status: stable. Pain Management: clinically adequate Postoperative Hydration: acceptable. Intraoperative Events: no significant anesthesia events Post Operative Nausea/Vomiting Status: no significant post operative nausea or vomiting Recommendation: continue current plan of care and further care per PACU/ICU/floor team. Anesthesia Observations No Documentation SIGNATURE: Valerie Odonnell MD PATIENT NAME: Macey Campbell DATE: April 26, 2025 TIME: 11:27 AM CSN: [id number] [facility] ANES PRE-OPon 04-26-2025 ANES PRE-OP HNO ID: [id number] Author: VALERIE ODONNELL MD Service: Anesthesiology Author Type: Anesthesiologist Type: Anesthesia Preprocedure Evaluation Filed: 04/26/2025 08:40 Note Text: ANESTHESIOLOGY DAY OF SURGERY NOTE : 1990 Procedure Information Date/Time: 04/26/25 0900 Procedures: ARTHROSCOPY HIP W/ LABRAL REPAIR (Left: Hip) - Surgery: LEFT Hip Anterior Labral Repair, with possible Acetabuloplasty, and possible Femoroplasty, ARTHROSCOPY HIP W/ FEMOROPLASTY (Left: Hip) ARTHROSCOPY HIP SURGICAL W/ ACETABULOPLASTY (Left: Hip) [facility]: [facility] Surgeons: Dar Verma MD Estimated body mass index is 30.38 kg/m? as calculated from the following: Height as of this encounter: 160 cm (5' 3). Weight as of this encounter: 77.8 kg (171 lb 8.3 oz). Most recent hematocrit and potassium results: Hematocrit 42.0 01/24/2025 Potassium 4.3 12/27/2024 Relevant Problems CARDIO (+) Chronic migraine with aura without status migrainosus, not intractable GI (+) GERD without esophagitis NEURO-PSYCH (+) Chronic migraine with aura without status migrainosus, not intractable I - PHYSICAL EVALUATION AIRWAY Patient intubated: No. Tracheostomy tube not present Mallampati: I. TM distance: >3 FB. Neck ROM: full ROM without neurological symptoms. Mouth opening: adequate. Short neck: yes. Thick neck: yes DENTAL Dental findings: teeth intact. Additional exam findings: no II - ANESTHESIA PLAN ASA Score: 2 Anesthetic Plan: general Airway type: ETT The patient is not a current smoker. NPO Status: adequate Beta Tony Monitoring Plan Monitoring plan: standard ASA. Post Procedure Analgesic Plan Postoperative analgesic plan: parenteral or oral opioids and multimodal analgesia. Informed Consent Anesthetic risks, benefits, alternatives, personnel and consent discussed: yes. Patient / Responsible Libertarian agrees to proceed: yes Patient / Surrogate agrees to blood products: Yes Significant changes in the patient condition since the History and Physical, not otherwise documented in primary service progress note: no. Potential Anesthesia issues that may suggest increased risk of complications or contraindication to planned procedure: none. Vitals Value Taken Time BP 127/69 04/26/25 0759 Pulse Resp 16 04/26/25 0756 Temp 36.5 ?C (97.7 ?F) 04/26/25 0756 SpO2 98 % 04/26/25 0759 Facility-Administere d Medications as of 04/26/2025 Medication Dose Route Frequency lidocaine 10 mg/mL (1 %) 1-2 mg injection (XYLOCAINE) 0.1-0.2 mL INTRADERMAL PRN lactated ringers iv infusion 5-30 mL/hr INTRAVENOUS CONTINUOUS NaCl 0.9% iv flush bag 20 mL INTRAVENOUS PRN ceFAZolin iv piggyback 2 g in D5W (iso-osmotic) 100 mL (ANCEF) 2 g INTRAVENOUS Pre-Op Once [COMPLETED] acetaminophen 1,000 mg tab(s) (TYLENOL) 1,000 mg ORAL Pre-Op Once [COMPLETED] celecoxib 200 mg cap(s) (CeleBREX) 200 mg ORAL Pre-Op Once [COMPLETED] diazePAM 5 mg tab(s) (VALIUM) 5 mg ORAL Pre-Op Once [COMPLETED] methocarbamol 1,000 mg tab(s) (ROBAXIN) 1,000 mg ORAL Pre-Op Once Outpatient Medications as of 04/26/2025 Medication Sig omeprazole (PRILOSEC) 40 mg capsule Take 1 capsule by mouth once daily. [START ON 04/27/2025] aspirin, enteric coated (ECOTRIN LOW STRENGTH) 81 mg EC tablet Take 1 tablet by mouth two times a day for 21 days. TO BEGIN 24 HOURS POST OP Patient should start on April 27, 2025. methocarbamol (ROBAXIN) 500 mg tablet Take 1 tablet by mouth four times a day as needed (muscle spasms) for up to 7 days. oxyCODONE IR (ROXICODONE) 5 mg immediate release tablet Take 1 tablet by mouth every 8 hours as needed for pain (severe post operative pain) for up to 5 days. for pain. keTORolac (TORADOL) 10 mg tablet Take 1 tablet by mouth every 6 hours as needed for up to 3 days. DO NOT TAKE AT THE SAME TIME DICLOFENAC! docusate sodium (COLACE) 100 mg capsule Take 1 capsule by mouth two times a day. ondansetron (ZOFRAN) 4 mg tablet Take 1 tablet by mouth every 8 hours as needed for nausea/vomiting. [START ON 04/29/2025] diclofenac, EC, (VOLTAREN) 75 mg EC tablet Take 1 tablet by mouth two times a day for 14 days. for pain. Patient should start on April 29, 2025. gabapentin (NEURONTIN) 300 mg capsule Take 1 capsule by mouth three times a day for 180 days. rizatriptan (MAXALT ARMORING MACHINE OPERATOR) 10 mg disintegrating tablet Take 1 tablet (10 mg) by mouth as needed. May repeat in 2 hours if needed metFORMIN ER (GLUCOPHAGE XR) 500 mg 24 hr tablet Take 1 tablet by mouth daily with breakfast. spironolactone (ALDACTONE) 50 mg tablet Take 1 tablet by mouth two times a day. rosuvastatin (CRESTOR) 5 mg tablet Take 2 tablets by mouth daily at bedtime. amitriptyline (ELAVIL) 10 mg tablet Take 1 tablet by mouth daily at bedtime. estradiol (ESTRACE) 1 mg tablet I have interviewed and examined the patient. I have reviewed the medical record and/or the pre-anesthesia evaluation, pertinent labs, and test result (more content not included)... [facility] BRIEF OP NOTon 04-26-2025 BRIEF OP NOT HNO ID: [id number] Author: ZECHARIAH MCQUEEN MD Service: Orthopaedic Surgery Author Type: Fellow Type: Brief Op Note Filed: 04/26/2025 10:52 Note Text: BRIEF OPERATIVE / PROCEDURE NOTE LOG ID: [id number] SURGERY/PROCEDURE DATE: 04/26/2025 INCISION/PROCEDURE START TIME: 9:13 AM INCISION CLOSE/PROCEDURE END TIME: 10:47 AM SURGEON(S)/PROCEDURA LIST(S) AND DISTRIBUTION ESTIMATOR(S): Surgeons and Role: * Dar Verma MD - Primary * Zechariah Mcqueen MD - Fellow Physician Compilation Clerk: Maikel Hector PA-C SURGERY/PROCEDURE(S) : left hip arthroscopy, labral repair, cam and pincer resection ANESTHESIA: General FINDINGS: MICHAEL morphology with large CAM, anterosuperior labral tear ESTIMATED BLOOD LOSS: 0 ml SPECIMENS: None COMPLICATIONS: None CLOSURE TECHNIQUE: Primary PRE-OP/PRE-PROCEDURE DIAGNOSIS: left hip MICHAEL POST-OP/POST-PROCEDU RE DIAGNOSIS: Same as Preop Patient was accompanied to the next level of care by a licensed practitioner from the surgical team pending completion of this brief op note (or operative note) SIGNATURE: Zechariah Mcqueen MD PATIENT NAME: Macey Campbell DATE: April 26, 2025 TIME: 10:52 AM [facility] HISTORY PHYSICALon HISTORY PHYSICAL HNO ID: [id number] Author: DAR VERMA MD Service: Orthopaedic Surgery Author Type: Physician Type: H&P Filed: 04/26/2025 08:46 Note Text: UPDATED HISTORY AND PHYSICAL EXAMINATION SERVICE DATE: 04/26/2025 SERVICE TIME: 8:46 AM PHYSICAL EXAM MUST BE COMPLETED ON ADMISSION The History and Physical (completed in the past 30 days) has been reviewed and the patient has been examined. The contents accurately reflect the patient's condition with the following additions or revisions since the HANDP was completed. Examination indicates no changes. This HANDP can be found in the Electronic Medical Record . SIGNATURE: Dar Verma MD PATIENT NAME: Macey Campbell DATE: April 26, 2025 TIME: 8:46 AM [facility] NURSING PROGon 04-26-2025 NURSING PROG HNO ID: [id number] Author: RAYMOND BEDOLLA RN Service: Nursing Author Type: Registered Nurse Type: Nursing Progress Note Filed: 04/26/2025 11:49 Note Text: POST OP LEARNING RESPONSE INSTRUCTION PROVIDED TO: Patient and Family member METHOD OF INSTRUCTION: Written instruction/Handouts Verbal instruction PATIENT / FAMILY RESPONSE: Verbalizes understanding of: INFECTION MANAGEMENT-Signs and symptoms of an infection and importance of contacting the physician MEDICAL REGIMEN-Importance of following prescribed medical regimen MEDICATION DOSE MISSED-Correct action to take if medication dose is missed MEDICATION PRESCRIBED-Accurate knowledge of prescribed medication prior to discharge MEDICATION ROUTE-Correct route for administration of the prescribed medication MEDICATION SIDE EFFECTS-Side effects associated with the medication that warrant a call to the physician PAIN MANAGEMENT-Effective strategies to manage pain in addition to pain medication PHYSICAL RESTRICTIONS-Physica l restrictions and recommendations after discharge from the hospital POST-OPERATIVE INSTRUCTIONS-Correct actions to take to reduce postoperative complications POST-PROCEDURE INSTRUCTIONS-Correct actions to take to reduce post procedure complications FOLLOW-UP PLAN: Complete - No need for follow-up Patient instructed to call with any further issues SUPPLEMENTAL MATERIAL: None REFERRAL (RECOMMENDATION): None Electronically Signed By: Raymond Bedolla RN In Department: [facility] SURGERY [facility] NURSING PROG HNO ID: [id number] Author: NAY BERRY RN Service: Nursing Author Type: Registered Nurse Type: Nursing Progress Note Filed: 04/26/2025 08:03 Note Text: PRE OP LEARNING ASSESSMENT PROCEDURE/SURGERY: SURGERY: left hip READINESS TO LEARN COGNITIVE ABILITY: Alert and oriented MOTIVATION TO LEARN: Eager FAMILY SUPPORT: High - Very involved in pt care PATIENT LEARNS BEST BY: Written Instruction - Hand-outs Verbal Instruction FACTORS AFFECTING LEARNING: None PHYSICAL LIMITATIONS AFFECTING LEARNING: None Electronically Signed By: Nay Berry RN In Department: [facility] SURGERY [facility] OPERATIVE NOon 04-26-2025 OPERATIVE NO HNO ID: [id number] Author: DAR VERMA MD Service: Orthopaedic Surgery Author Type: Physician Type: Operative Report Filed: 04/26/2025 10:57 Note Text: Macey Campbell [id number] LOG ID: [id number] Surgery/Procedure Date: April 26, 2025 Surgeon(s)/Procedura list(s) Surgeon(s) and Role: Dar Verma MD - Primary Compilation Clerk: 1. Zechariah Mcqueen MD fellow assist 2. Maikel Flowers assist I/primary surgeon/proceduralis t performed the procedure with assistance. Fellow closed and implanted device and Physician Compilation Clerk aided in positioning, prepping, draping, leg manipulation, under direct supervision and the remainder of the procedure was performed by the primary surgeon/proceduralis t with assistance. Incision Start: 9:13 AM Incision Stop: 10:47 AM PREOPERATIVE DIAGNOSIS: 1. Left hip acetabular labral tear 2. Left hip femoral acetabular impingement 3. Left pain in joint, pelvic region and thigh Alpha angle: 63 Lateral center edge angle: 37 POSTOPERATIVE DIAGNOSIS: 1. Left hip acetabular labral tear 2. Left hip femoral acetabular impingement 3. Left pain in joint, pelvic region and thigh SURGERY/PROCEDURE: 1. Left hip arthroscopy with labrum repair [id number] 2. Femoroplasty, 19509. 3. Acetabuloplasty, 71897. 4. Capsular closure. ANESTHESIA: General. LOCATION: [facility] [place]. OPERATIVE INDICATIONS: A pleasant 34 year old female with left hip complaints, not amenable to conservative management. Imaging and exam findings consistent with femoral acetabular impingement and labral tear and pain in the anterior impingement and LIZETTE position. They had failed conservative measures. We discussed the expectations, risks, benefits, and alternatives in this scenario. They voiced understanding of this and wished to proceed. DESCRIPTION OF PROCEDURE: Patient was brought to Operative Suite #2 on April 26, 2025 after marking the appropriate surgical extremity in the preoperative holding area. Brought into the operative suite, placed on the operative table, and induced under general anesthesia. Placed distally in a well-padded perineal post. Both feet were secured in traction boots. The right upper extremity was placed across the chest. Care was taken to pad the ulnar nerve. The patient was placed in slight Trendelenburg and under fluoroscopic guidance and complete muscle relaxation, left hip was distracted. Lateral aspect of the greater trochanter was prepped with Betadine. Vacuum suction seal was then removed from the joint with an 18-gauge spinal needle. Hip was then reduced and then prepped and draped in the usual sterile fashion. After appropriate surgical time-out including all members of the surgical team, confirming the site and extremity, ensuring fire behavior analyst of 2 g IV Ancef, the hip was again distracted. Standard anterolateral and midanterior portals were created. Exam of the hip joint revealed an anterosuperior labral tear from 11:30 to 2 on the clock face. The deep anterior wall, dome, posterior wall, posterior labrum, femoral head, and ligamentum teres were intact. Interportal cut capsulotomy was performed. Labral takedown was performed in the area of the tear. We exposed 2 mm acetabular rim by 2 cm in length. We used a 5.5 mm colby to perform the acetabuloplasty. This made a nice bleeding bony bed to accept three 1.8 mm FiberTak anchors. Simple suture configuration was employed and thelabrum was secured down the acetabular bone in a very stable fashion. Repeat exam of the joint revealed no further changes. The hip was then reduced at 60 minutes and Trendelenburg was removed. The head-neck junction was then identified distally. Loss of offset anteriorly was easily identifiable. A 5.5 mm colby was used to perform the femoroplasty using live fluoroscopic views and direct visualization to ensure adequate, but not over-resection from the lateral epiphyseal vessels of the medial synovial fold. At this point, all loose bony debris was removed from the joint. Capsular closure was then performed with three #2 DynaCord stitches. This reduced the iliofemoral ligament in a very stable fashion. At this point, all excess fluid was removed. Hip space was injected with 20 cc cocktail of 0.5% ropivacaine and 2 mg of Duramorph for postoperative analgesia. The arthroscopic instruments were then removed. The wound was then closed with interrupted 3-0 Prolene, followed by Steri-Strips andsterile dressing. Patient was then awakened from general anesthesia and taken to PACU in stable condition. COMPLICATIONS: None. SPECIMENS: None. FLUIDS: See Anesthesia record. TRACTION TIME: 60 minutes. PLAN: Activity: Non weight bearing in DJO hip brace for 2 weeks. Begin weight bearing progression at two weeks post operatively. Encourage vigorous circumduction of hip Physical Therapy: Begin immediately after surgery. Standard hip arthroscopy (more content not included)... [facility] 04-12-2025 [facility] Nurse Visit (SPHTB) MACEY CAMPBELL ([id number]) 1990 F Date Time Provider Department 04/12/25 1:00 PM [facility] During your visit today, we recorded the following information about you: Nacho Kessler RN 04/12/2025 1:36 PM Signed Pt Id By Name AND . Pt consented to conversing via phone. HDAI - Completed Consent - Completed Last Enc Note with Dr. OSBORNE on 04/10/2025 M25.852 - Femoroacetabular impingement of left hip Imaging: - X-ray of the left hip: Flattened femoral head morphology with a bony prominence contacting the acetabular labrum. - MRI of the left hip: Sagittal view demonstrates labrum tear with chondrolabral separation. Tests: - Intra-articular injection of the left hip: Provided short-term pain relief; utilized partly for diagnostic confirmation. 1. Femoroacetabular impingement of left hip (M25.852) - Patient presents with groin pain exacerbated by prolonged sitting, car rides, squatting, and stair climbing. Physical examination reveals stiffness and pain on movement of the left hip. - X-ray demonstrates a flattened morphology with a bump on the femoral head, consistent with femoroacetabular impingement (MICHAEL). - MRI shows fraying and degeneration of cartilage but no discrete labral tear; however, based on the hip morphology, a labral tear is highly suspected. - Discussed treatment options including previous physical therapy and diagnostic/therapeut ic injection, which provided only temporary relief. - Recommended hip arthroscopy to repair the labrum and recontour the femoral head to prevent further impingement. - Explained surgical procedure, including outpatient status, use of a hip brace and crutches for 3 weeks, and gradual improvement expected over 6 weeks. - Discussed potential for 80% pain reduction post-surgery, with average pain scores decreasing from 8/10 to 2-2.5/10 over 1-2 years. - Advised on the negative impact of tobacco use on surgical outcomes and pain scores. 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 Pt agreed to surgery date with Dr. Dar Verma on 04/26/2025 at [facility]. Pt confirmed surgery will be for left Hip . Surgery checklist and perioperative planning HX OF VTE Venous thromboembolism: NO FHX family history OF VTE : NO Currently on anticoagulation: NO Have you or Any Blood Relative ever experienced a Life Threatening Reaction to Anesthesia: NO Patient confirmed home assistance post op: YES Crutches / Walker : YES Pt confirmed - will bring on Day of Surgery Hip scope: YES Pre-Op PT appt for teaching hip scope post op stretches: NEEDS PT location for post op: [place] HX OF MRSA: NO HX OF ANEMIA: NO HX OF DM: NO A1C: n/a ALLERGY TO ASPIRIN: NO ALLERGY TO NSAIDS: NO ALLERGY TO PCN: NO ALLERGY TO METAL: NO Reviewed with Pt the following: Dr. Verma - will do his best to speak to each and every patient as they wake up post op. If the patient has not fully woken up from the anesthesia prior to the start of the next surgical case, there may be times when Dr. Verma is not able to speak to the patient. Regardless, After your procedure, Dr. Verma will speak to your family member/transport person post operatively. He will describe what was done and answer any questions. We perform multiple surgeries each day so unfortunately Dr. Verma may not get a chance to speak to you directly. CHG wipes or CHG soap - patient received these today with instructions Surgery booklet with information to contact [facility] if they do not hear from them in 14 days prior to surgery The patient was offered a surgery/procedure at a [facility] facility. The surgeon/proceduralis t and patient have discussed in detail the risk of exposure to and/or potential harm posed by the COVID-19 virus with having a surgery/procedure at this time versus the risk of delaying the surgery/procedure. It is not possible to know either the risk of delaying the surgery or procedure or chance of getting an infection with perfect accuracy, but a joint decision was made between the patient and the surgeon to proceed at this time with the scheduled surgery/procedure as indicated on the consent form. As a result of the October 2021 [facility] decision to cancel non-essential surgeries at our [place] facilities, unless special criteria are met, I have reviewed the clinical record for this patient and have determined that the scheduled procedure meets the criteria to go forward and should be scheduled because of the presence of severe symptoms and/or risk of rapid disease progression. Spoke with pt for 15 mins. Allergies As of Date: 04/12/2025 Noted Allergy Reaction CLEOCIN (CLINDAMYCIN) 10/16/2021 2 - Rash SULFA (SULFONAMIDE ANTIBIOTICS) 12/13/2010 2 - (more content not included)... [facility] HISTORY PHYSICALon HISTORY PHYSICAL HNO ID: [id number] Author: CANDY ALAS APRN.FRANCHISE DEVELOPMENT MANAGER Service: ? Author Type: Nurse Practitioner Type: H&P Filed: 04/14/2025 11:23 Note Text: PREANESTHESIA CONSULT CLINIC TELEHEALTH VISIT Patient has been identified by name and date of : Yes This is a virtual visit using [employer] Zoom Video Visit. It require patient-provider interaction for the medical decision making as documented below. Reason for contact: [facility] visit Accompanied by: Self I have communicated my name and active licensure. The patient's identity and physical location were verified at the time of this visit. Either the patient or their legal in store representative has been informed of the risks and benefits of -- and alternatives to -- treatment through a remote evaluation and consents to proceed with the evaluation remotely. Scheduled Surgery: LEFT Hip Anterior Labral Repair, with possible Acetabuloplasty, and possible Femoroplasty, Subjective CHIEF COMPLAINT: No chief complaint on file. I have communicated my name and active licensure. The patient's identity and physical location were verified at the time of this visit. Either the patient or their legal in store representative has been informed of the risks and benefits of -- and alternatives to -- treatment through a remote evaluation and consents to proceed with the evaluation remotely. 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 Shelley REMOVAL OF OVARY(S) Right 10/24/2020 ovarian torsion REMOVAL OF OVARY(S) Left 12/2020 Dr Jo SALPINGECTOMY Right 12/27/2016 laparoscopic Right salpingectomy- ECTOPIC FAMILY HISTORY Problem Relation Age of Onset Cervical Cancer Mother other (breast cyst [Other]) Mother Hyperlipidemia Father Hypertension Father other (sepsis) Father (after ruptured appe and another surgical complication where bowel was perforated during [place]). No Known Problems Sister No Known Problems Sister ADD/ADHD Brother Depression Brother ADD/ADHD Brother Stroke Maternal Grandmother No Known Problems Maternal Grandfather Hypertension Paternal Grandmother Hyperlipidemia Paternal Grandmother Skin Cancer Paternal Grandmother other (ewings sarcoma) Paternal Grandmother Hypertension Paternal Grandfather Heart Attack Paternal Grandfather Diabetes Paternal Grandfather Hyperlipidemia Paternal Grandfather COPD Paternal Grandfather ADD/ADHD Son Social History Tobacco Use Smoking status: Every Day Current packs/day: 0.50 Average packs/day: 0.5 packs/day for 15.0 years (7.5 ttl pk-yrs) Types: Cigarettes Smokeless tobacco: Never Vaping Use Vaping status: Never Used Substance Use Topics Alcohol use: Yes Alcohol/week: 1.0 standard drink of alcohol Types: 1 Glasses of Wine (5oz) per week Comment: Social Drug use: No ALLERGIES Allergen Reactions Cleocin [Clindamyci* Rash Sulfa (Sulfonamide * Rash MEDICATIONS: Current Outpatient Medications Medication Sig omeprazole (PRILOSEC) 40 mg capsule Take 1 capsule by mouth once daily. gabapentin (NEURONTIN) 300 mg capsule Take 1 capsule by mouth three times a day for 180 days. rizatriptan (MAXALT ARMORING MACHINE OPERATOR) 10 mg disintegrating tablet Take 1 tablet (10 mg) by mouth as needed. May repeat in 2 hours if needed metFORMIN ER (GLUCOPHAGE XR) 500 mg 24 hr tablet Take 1 tablet by mouth daily with breakfast. spironolactone (ALDACTONE) 50 mg tablet Take 1 tablet by mouth two times a day. rosuvastatin (CRESTOR) 5 mg tablet Take 2 tablets by mouth daily at bedtime. amitriptyline (ELAVIL) 10 mg tablet Take 1 tablet by mouth daily at bedtime. estradiol (ESTRACE) 1 mg tablet No current facility-administere d medications for this visit. REVIEW OF SYSTEMS: Pain Assessment: General: No weight loss, malaise or fevers. Neuro: Postive for Headaches Respiratory: No history of current cough or dyspnea, or pneumonia in the past 6 weeks. No history of respiratory/pulmonar y symptoms or problems. Cardiovascular: Positive for: HLD GI: Pos (more content not included)... [facility] CNOVon 04-10-2025 CNOV Office Visit ([facility]) MACEY CAMPBELL ([id number]) 1990 F Date Time Provider Department 04/10/25 9:00 AM DAR VERMA [facility] During your visit today, we recorded the following information about you: Dar Verma MD 04/10/2025 8:50 AM Signed NEW ENCOUNTER This patient is being seen at the request of Maikel Hector PA-C and the progress note from this visit will be communicated via shared medical record Chief Complaint: left Hip pain History: Patient is a 34 year old female; she denies an acute injury event. 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 She has done extensive physical therapy for 10 months. She has had a diagnostic and therapeutic left hip joint injection. With her diagnostic injection she had complete 100% relief for the few hours that her local anesthesia was working. Her cortisone injection only partially worked for her. Smokes /2ppd Patient History PAST MEDICAL HISTORY Diagnosis Date GERD without esophagitis 12/31/2021 Obesity, Class I, BMI 30-34.9 12/31/2021 PCOS (polycystic ovarian syndrome) Tobacco use disorder 12/31/2021 PAST SURGICAL HISTORY Procedure Laterality Date COLONOSCOPY SCREENING 02/08/2024 EGD W/O BRSH SPEC VARICIES INJ 02/08/2024 LAPS ABD PRTMANDOMENTUM DX W/WO SPEC BR/WA SPX 2014 Laparoscopy - for r/o endometriosis, foung to have a cyst PT ED OBSTETRICS AND GYNECOLOGY N/A 12/2019 laparoscopic hysterectomy - for endometriosis - Dr. Shelley REMOVAL OF OVARY(S) Right 10/24/2020 ovarian torsion REMOVAL OF OVARY(S) Left 12/2020 Dr Jo SALPINGECTOMY Right 12/27/2016 laparoscopic Right salpingectomy- ECTOPIC omeprazole (PRILOSEC) 40 mg capsule Take 1 capsule by mouth once daily. gabapentin (NEURONTIN) 300 mg capsule Take 1 capsule by mouth three times a day for 180 days. rizatriptan (MAXALT ARMORING MACHINE OPERATOR) 10 mg disintegrating tablet Take 1 tablet (10 mg) by mouth as needed. May repeat in 2 hours if needed metFORMIN ER (GLUCOPHAGE XR) 500 mg 24 hr tablet Take 1 tablet by mouth daily with breakfast. spironolactone (ALDACTONE) 50 mg tablet Take 1 tablet by mouth two times a day. rosuvastatin (CRESTOR) 5 mg tablet Take 2 tablets by mouth daily at bedtime. amitriptyline (ELAVIL) 10 mg tablet Take 1 tablet by mouth daily at bedtime. estradiol (ESTRACE) 1 mg tablet Allergies: ALLERGIES Allergen Reactions Cleocin [Clindamyci* Rash Sulfa (Sulfonamide * Rash REVIEW OF SYSTEMS: Patient reports no change in past medical AND surgical history, medications, allergies, social history, family history and review of systems since visit dated . Allergies, medications, past surgical history and past medical history were reviewed per this encounter. Physical Examination: Region: Hip General Appearance: Appears healthy, well-nourished, no deformities. Neck/Spine/Station/G ait: Full pain free motion of the neck, no tenderness to palpation Left Exam: AROM: flexion 90 with pain above this. 10 degrees internal rotation, 60 degrees external rotation PROM: Same as active but with flexion to 100 degrees with significant pain Point Tenderness location: Tenderness along the flexor tendon. Nontender about the trochanter and glute Medius Swelling/Effusion: none Stability: normal Muscle Strength: 4+/5 hip flexor with pain, otherwise full strength Sensation:normal Reflexes:normal Skin: normal Pulses: normal Special Tests: Significant pain in the groin with dynamic labral shear. Milder pain with LIZETTE testing in the groin as well Right Exam: AROM: 120 flexion, IR 20, ER 65 PROM: same as active Point Tenderness location:none Swelling/Effusion: none Stability: normal Muscle Strength: normal Sensation:normal Reflexes:normal Skin: normal Pulses: normal Special Tests: None Images have been personally reviewed by me and discussed with patient. CAM morphology with signs of notching and auto-femoroplasty. Alpha angle 63. LCEA 37. MRI left hip reviewed showing an anterosuperior labral tear Assessment and Plan: 34-year-old female with left hip femoral acetabular impingement with large cam lesion. Clearly symptomatic from the hip on history and exam. Has had extensive nonoperative treatment with 10 months of therapy. Positive diagnostic injection response. Poor response to therapeutic injection. She would like to proceed with left hip arthroscopy w (more content not included)... 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 - gabapentin (NEURONTIN) 300 mg capsule Take 1 capsule by mouth three times a day for 180 days. - rizatriptan (MAXALT ARMORING MACHINE OPERATOR) 10 mg disintegrating tablet Take 1 tablet (10 mg) by mouth as needed. May repeat in 2 hours if needed - metFORMIN ER (GLUCOPHAGE XR) 500 mg 24 hr tablet Take 1 tablet by mouth daily with breakfast. - spironolactone (ALDACTONE) 50 mg tablet Take 1 tablet by mouth two times a day. - rosuvastatin (CRESTOR) 5 mg tablet Take 2 tablets by mouth daily at bedtime. - amitriptyline (ELAVIL) 10 mg tablet Take 1 tablet by mouth daily at bedtime. - estradiol (ESTRACE) 1 mg tablet Problem List As Of Date 04/10/2025 Noted Resolved Gastroenteritis [K52.9] 12/13/2010 Abdominal pain, acute, right upper quadrant [R1*12/13/2010 Tachycardia [R00.0] 12/13/2010 Menstrual irregularity [N92.6] 12/13/2010 Infertility associated with anovulation [N97.0] 09/13/2012 PCOS (polycystic ovarian syndrome) [E28.2] 09/27/2012 12/31/2021 Pain, upper back [M54.9] 09/07/2013 01/21/2022 Pelvic pain in female [R10.2] 10/31/2013 Pain in joint, shoulder region [M25.519] 01/10/2015 01/21/2022 GERD without esophagitis [K21.9] 12/31/2021 Obesity, Class I, BMI 30-34.9 [E66.811] 12/31/2021 Tobacco use disorder [F17.200] 12/31/2021 Hyperglycemia [R73.9] 01/21/2022 Mixed hyperlipidemia [E78.2] 04/16/2022 Acute back pain with sciatica, left [M54.42] 06/28/2024 Pain of left hip [M25.552] 06/28/2024 Encounter Status:Closed by NACHO KESSLER on 04/10/25 [facility] MR Hip - left WO contraston 04-06-2025 IMPRESSION: 1. MINIMAL DEGENERATIVE CHANGES IN THE LEFT HIP WITH ANTERIOR SUPERIOR LABRAL DEGENERATION AND FRAYING. 2. MILD EDEMA IN THE QUADRATUS FEMORIS MUSCLES BILATERALLY AT THE ISCHIOFEMORAL SPACES WHICH CAN BE SEEN IN THE SETTING OF IMPINGEMENT. Big Machine Consultant: [facility]LE[facility] Transcribe Date/Time: Apr 06 2025 7:36A Dictated by : GRACE REYES MD This examination was interpreted and the report reviewed and electronically signed by: GRACE REYES MD on Apr 06 2025 7:42AM [facility] DIVISION OF RADIOLOGY * * *Final Report* * * DATE OF EXAM: Apr 06 2025 7:25AM M2 0206 - MRI HIP WO IVCON LT / PROCEDURE REASON: multiple diagnoses * * * * Physician Interpretation * * * * MRI HIP WO IVCON LT INDICATION: Left hip pain April 2024. Clinical diagnosis of femoral acetabular impingement. MRI to evaluate for labral pathology and surgical planning. COMPARISON: Left hip MRI dated 09/23/2024. TECHNIQUE: Hip MRI protocol. RESULT: Left Hip: Mild irregularity at the anterior superior labrum at the labral chondral junction likely due to labral fraying (7:11 and 6:15). Mild chondral irregularity compatible with degenerative changes. No fractures. No avascular necrosis. No joint effusion. No synovitis. Right Hip: Within normal limits. No fractures. No avascular necrosis. Large field of view images limits evaluation of labrum and cartilage Sacroiliac joints: Mild degenerative changes bilaterally with increased sclerosis and subchondral edema signal. Pubic symphysis: Within normal limits. Tendons: Mild hamstring tendinosis bilaterally at their origins.. Muscles: Mild increased signal in the quadratus femoris muscles bilaterally ischiofemoral spaces.. Bone Marrow: Within normal limits. No fractures or marrow replacing lesions. .. DIVISION OF RADIOLOGY Provider, [facility] [place] - 04/06/2025 * * *Final Report* * * DATE OF EXAM: Apr 06 2025 7:25AM M2M 0206 - MRI HIP WO IVCON LT / PROCEDURE REASON: multiple diagnoses * * * * Physician Interpretation * * * * MRI HIP WO IVCON LT INDICATION: Left hip pain April 2024. Clinical diagnosis of femoral acetabular impingement. MRI to evaluate for labral pathology and surgical planning. COMPARISON: Left hip MRI dated 09/23/2024. TECHNIQUE: Hip MRI protocol. RESULT: Left Hip: Mild irregularity at the anterior superior labrum at the labral chondral junction likely due to labral fraying (7:11 and 6:15). Mild chondral irregularity compatible with degenerative changes. No fractures. No avascular necrosis. No joint effusion. No synovitis. Right Hip: Within normal limits. No fractures. No avascular necrosis. Large field of view images limits evaluation of labrum and cartilage Sacroiliac joints: Mild degenerative changes bilaterally with increased sclerosis and subchondral edema signal. Pubic symphysis: Within normal limits. Tendons: Mild hamstring tendinosis bilaterally at their origins.. Muscles: Mild increased signal in the quadratus femoris muscles bilaterally ischiofemoral spaces.. Bone Marrow: Within normal limits. No fractures or marrow replacing lesions. .. IMPRESSION IMPRESSION: 1. MINIMAL DEGENERATIVE CHANGES IN THE LEFT HIP WITH ANTERIOR SUPERIOR LABRAL DEGENERATION AND FRAYING. 2. MILD EDEMA IN THE QUADRATUS FEMORIS MUSCLES BILATERALLY AT THE ISCHIOFEMORAL SPACES WHICH CAN BE SEEN IN THE SETTING OF IMPINGEMENT. Big Machine Consultant: [facility] Transcribe Date/Time: Apr 06 2025 7:36A Dictated by : GRACE REYES MD This examination was interpreted and the report reviewed and electronically signed by: GRACE REYES MD on Apr 06 2025 7:42AM EST [facility] Radiology Study observation (narrative) [facility] MR Hip - left WO contrastOrd ered By: [facility] Provider on 04-06-2025 [facility] MRI HIP WO IVCON LTon 2024 MRI HIP WO IVCON LT * * *Final Report* * * DATE OF EXAM: Apr 06 2025 7:25AM M2M 0206 - MRI HIP WO IVCON LT / PROCEDURE REASON: multiple diagnoses * * * * Physician Interpretation * * * * MRI HIP WO IVCON LT INDICATION: Left hip pain April 2024. Clinical diagnosis of femoral acetabular impingement. MRI to evaluate for labral pathology and surgical planning. COMPARISON: Left hip MRI dated 09/23/2024. TECHNIQUE: Hip MRI protocol. RESULT: Left Hip: Mild irregularity at the anterior superior labrum at the labral chondral junction likely due to labral fraying (7:11 and 6:15). Mild chondral irregularity compatible with degenerative changes. No fractures. No avascular necrosis. No joint effusion. No synovitis. Right Hip: Within normal limits. No fractures. No avascular necrosis. Large field of view images limits evaluation of labrum and cartilage Sacroiliac joints: Mild degenerative changes bilaterally with increased sclerosis and subchondral edema signal. Pubic symphysis: Within normal limits. Tendons: Mild hamstring tendinosis bilaterally at their origins.. Muscles: Mild increased signal in the quadratus femoris muscles bilaterally ischiofemoral spaces.. Bone Marrow: Within normal limits. No fractures or marrow replacing lesions. .. IMPRESSION: 1. MINIMAL DEGENERATIVE CHANGES IN THE LEFT HIP WITH ANTERIOR SUPERIOR LABRAL DEGENERATION AND FRAYING. 2. MILD EDEMA IN THE QUADRATUS FEMORIS MUSCLES BILATERALLY AT THE ISCHIOFEMORAL SPACES WHICH CAN BE SEEN IN THE SETTING OF IMPINGEMENT. Big Machine Consultant: [facility] Transcribe Date/Time: Apr 06 2025 7:36A Dictated by : GRACE REYES MD This examination was interpreted and the report reviewed and electronically signed by: GRACE REYES MD on Apr 06 2025 7:42AM EST [id number] [facility] CNOVon 03-23-2025 CNOV Office Visit ([facility]) CAMPBELLKAITLINMACEY Sharon ([id number]) 1990 F Date Time Provider Department 03/23/25 9:00 AM MAIKEL HECTOR [facility] During your visit today, we recorded the following information about you: Maikel Hector PA-C 03/23/2025 12:13 PM Signed NEW ENCOUNTER Chief Complaint: Left hip pain PAIN INTAKE: PAIN EVALUATION 03/21/20252001 Pain Level: 8 Pain Location: Hip-Left Description: Aching;Dull;Sharp;So re;Stiffness;Tightne ss Duration Amount of Time: 11 Duration Units: Months Frequency: Continuous Intervention/Comfort measure: Medication;Repositio n;Cold;Exercise;Mass age;Other: See comment History: Patient is a 34 year old female presenting for left hip pain. Left Hip Pain: - Onset: Progressive onset since April of 2024; has had hip pain for several years. - Location: Primarily localized to the groin area. - Duration: Chronic, persistent pain. - Severity: Pain never fully resolves; no significant improvement with treatments. - Aggravating Factors: Squatting, walking, hills, stairs, sleeping, prolonged sitting. - Alleviating Factors: Sometimes improved with movement. - Radiation: Denies radiation down the extremity. - Associated Symptoms: Denies popping, clicking, or catching. - Treatments Tried: - Injections: - November: Numbing agent injected into the hip joint; provided temporary relief for a few hours. - December: Cortisone injection; minimal improvement for a few weeks. - Physical Therapy: Consistent since June of last year; no significant improvement. - Medications: Tried meloxicam, prednisone, and other anti-inflammatory medications with no significant relief. 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 - Denies history of surgeries on the hip. 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 Shelley REMOVAL OF OVARY(S) Right 10/24/2020 ovarian torsion REMOVAL OF OVARY(S) Left 12/2020 Dr Jo SALPINGECTOMY Right 12/27/2016 laparoscopic Right salpingectomy- ECTOPIC omeprazole (PRILOSEC) 40 mg capsule Take 1 capsule by mouth once daily. gabapentin (NEURONTIN) 300 mg capsule Take 1 capsule by mouth three times a day for 180 days. rizatriptan (MAXALT ARMORING MACHINE OPERATOR) 10 mg disintegrating tablet Take 1 tablet (10 mg) by mouth as needed. May repeat in 2 hours if needed metFORMIN ER (GLUCOPHAGE XR) 500 mg 24 hr tablet Take 1 tablet by mouth daily with breakfast. spironolactone (ALDACTONE) 50 mg tablet Take 1 tablet by mouth two times a day. rosuvastatin (CRESTOR) 5 mg tablet Take 2 tablets by mouth daily at bedtime. amitriptyline (ELAVIL) 10 mg tablet Take 1 tablet by mouth daily at bedtime. estradiol (ESTRACE) 1 mg tablet Allergies: ALLERGIES Allergen Reactions Cleocin [Clindamyci* Rash Sulfa (Sulfonamide * Rash REVIEW OF SYSTEMS: Constitutional: (-) fever, (-) chills Cardiovascular: (-) chest pain, (-) palpitations Respiratory: (-) shortness of breath, (-) wheezing, (-) cough Gastrointestinal: (+) h/o acid reflux, (-) abdominal pain, (-) ulcers Musculoskeletal: see HPI Skin: (-) rashes, (-) skin lesions Hematologic/Lymphati c: (-) bleeding or clotting disorders Allergies, medications, past surgical history and past medical history were reviewed per this encounter. Physical Examination: Region: Hip General Appearance: Appears healthy, well-nourished, no deformities. Neck/Spine/Station/G ait: Antalgic Left Hip: Negative Trendelenburg sign No tenderness to palpation over lumbar spine Mild tenderness over greater trochanter No tenderness to palpation over the anterior hip Hip flexion 90 degrees, pain Hip IR 10 degrees, pain Hip ER 20 degrees, pain 4/5 resisted hip flexion, abduction, adduction 4+/5 resisted knee flexion and extension 5/5 ankle DF and PF Positive flexion/adduction/in ternal rotation Negative flexion/abduction/ex ternal rotation test Negative straight leg raise Neurovascular exam normal distally Right Hip: Negative Trendelenburg sign No tenderness to palpation over lumbar spine No tenderness over greater trochanter Hip flexion 110 degrees Hip IR 20 degrees Hip ER 30 degrees No weakness with resisted (more content not included)... [facility] MACEY CAMPBELL ([id number]) 1990 F Date Time Provider Department 03/23/25 MAIKEL HECTOR [facility] During your visit today, we recorded the following information about you: Allergies As of Date: 03/23/2025 Noted Allergy Reaction CLEOCIN (CLINDAMYCIN) 10/16/2021 2 - Rash SULFA (SULFONAMIDE ANTIBIOTICS) 12/13/2010 2 - Rash Date Reviewed: 03/23/2025 Reviewed by: Maikel Hector PA-C - Fully Assessed Prescriptions as of 03/23/2025 - diclofenac, EC, (VOLTAREN) 75 mg EC tablet Take 1 tablet by mouth two times a day for 14 days. for pain. Take with a meal. - omeprazole (PRILOSEC) 40 mg capsule Take 1 capsule by mouth once daily. - gabapentin (NEURONTIN) 300 mg capsule Take 1 capsule by mouth three times a day for 180 days. - rizatriptan (MAXALT ARMORING MACHINE OPERATOR) 10 mg disintegrating tablet Take 1 tablet (10 mg) by mouth as needed. May repeat in 2 hours if needed - metFORMIN ER (GLUCOPHAGE XR) 500 mg 24 hr tablet Take 1 tablet by mouth daily with breakfast. - spironolactone (ALDACTONE) 50 mg tablet Take 1 tablet by mouth two times a day. - rosuvastatin (CRESTOR) 5 mg tablet Take 2 tablets by mouth daily at bedtime. - amitriptyline (ELAVIL) 10 mg tablet Take 1 tablet by mouth daily at bedtime. - estradiol (ESTRACE) 1 mg tablet Problem List As Of Date 03/23/2025 Noted Resolved Gastroenteritis [K52.9] 12/13/2010 Abdominal pain, acute, right upper quadrant [R1*12/13/2010 Tachycardia [R00.0] 12/13/2010 Menstrual irregularity [N92.6] 12/13/2010 Infertility associated with anovulation [N97.0] 09/13/2012 PCOS (polycystic ovarian syndrome) [E28.2] 09/27/2012 12/31/2021 Pain, upper back [M54.9] 09/07/2013 01/21/2022 Pelvic pain in female [R10.2] 10/31/2013 Pain in joint, shoulder region [M25.519] 01/10/2015 01/21/2022 GERD without esophagitis [K21.9] 12/31/2021 Obesity, Class I, BMI 30-34.9 [E66.811] 12/31/2021 Tobacco use disorder [F17.200] 12/31/2021 Hyperglycemia [R73.9] 01/21/2022 Mixed hyperlipidemia [E78.2] 04/16/2022 Acute back pain with sciatica, left [M54.42] 06/28/2024 Pain of left hip [M25.552] 06/28/2024 Encounter Status:Closed by MAIKEL HECTOR on 03/23/25 [facility] XR HIP 1V LTon 03-23-2025 XR HIP 1V LT * * *Final Report* * * DATE OF EXAM: Mar 23 2025 8:16AM M2X 5277 - XR HIP 1V LT / PROCEDURE REASON: Pain in left hip * * * * Physician Interpretation * * * * HISTORY: Pain in left hip . ortega and standing false profile images only per provider chronic left hip pain with no relief after injections and PT TECHNIQUE: XR HIP 1V LT, XR HIP 1V LT COMPARISON: 09/08/2024 RESULT: Joint spaces and alignment normal. No evidence of a fracture. Normal soft tissues. No other significant abnormality. ----- IMPRESSION: NORMAL Big Machine Consultant: RFIDeas Transcribe Date/Time: Mar 23 2025 9:01A Dictated by : GRACE REYES MD This examination was interpreted and the report reviewed and electronically signed by: GRACE REYES MD on Mar 23 2025 9:02AM EST [id number] CN [facility] XR HIP 1V LT * * *Final Report* * * DATE OF EXAM: Mar 23 2025 8:16AM M2X 5277 - XR HIP 1V LT / PROCEDURE REASON: Pain in left hip * * * * Physician Interpretation * * * * HISTORY: Pain in left hip . ortega and standing false profile images only per provider chronic left hip pain with no relief after injections and PT TECHNIQUE: XR HIP 1V LT, XR HIP 1V LT COMPARISON: 09/08/2024 RESULT: Joint spaces and alignment normal. No evidence of a fracture. Normal soft tissues. No other significant abnormality. ----- IMPRESSION: NORMAL Big Machine Consultant: RFIDeas Transcribe Date/Time: Mar 23 2025 9:01A Dictated by : GRACE REYES MD This examination was interpreted and the report reviewed and electronically signed by: GRACE REYES MD on Mar 23 2025 9:02AM EST [id number] CN [facility] CNOVon 03-14-2025 CNOV Office Visit ([facility]) TAVONMACEY M ([id number]) 1990 F Date Time Provider Department 03/14/25 11:30 AM MAGGY HAYES During your visit today, we recorded the following information about you: Maggy Hayes PA-C 03/14/2025 12:02 PM Signed Maggy Hayes PA-C Department of Orthopaedics Orthopaedics [address] [address] Dept: [phone] March 14, 2025 CHIEF COMPLAINT: Established Patient, Follow Up, and Pain of the Left Hip Hip Pain: - Presents with pain in her left hip which started insidiously April 2024. - Pain started in left buttock region wrapping around into the left groin region. Does not radiate down leg. - Pain is worse when she is standing, squatting or climbing stairs. - Has participetd in many months of PT w/o impvement. Pain since PT has localized to the groin. - X-rays of both the hip and lumbar spine are benign. - MRI showed a small labrum scuff in the anterior region, with no discrete tear. - Recent lidocaine only hip injection provided relief for few hours. - Had triamcinolone injection with Dr. Reinoso, injection was helpful but short lived, few days. - Currently undergoing physical therapy; frequency reduced to every other week. - Reports a recent incident where the hip locked and popped while using a stair climber, causing significant pain. 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 ASSESSMENT: M25.552 Pain of left hip (primary encounter diagnosis) PLAN: 1. Pain of left hip (M25.552) - Persistent left hip pain with minimal relief from previous Kenalog injection and physical therapy. - MRI showed a small anterior labral scuff without a discrete tear. - Discussed potential for further imaging with contrast MRI to better visualize any underlying issues. - Referred to sports medicine for second opinion. - Advised against further hip injections at this time to avoid potential complications. - Patient understands and agrees with the plan. Ms. Macey Campbell was advised as to contrast therapies and/or to take analgesics/anti-infl ammatories as needed and all contraindications were reviewed. OBJECTIVE: Ms. Macey Campbell is a pleasant 34 year old in no apparent distress. Gen:LMP 08/04/2016 nl development, obese, no deformities ENT: Normocephalic, normal hearing, moist mucosa CV: Pulses:DP/PT= 2+ and symmetric, capillary refill < 2 secs, no peripheral edema/varicosities Skin: no rash, bruising or lesions. Good turgor. Psych: cooperative and appropriate, alert and oriented x 3, good mood and affect. Musculoskeletal: HIP EXAM: Left: ROM: Extension: full extension Flexion: 100 degrees Internal Rotation: 25 degrees External Rotation: 30 degrees Abduction: 30 degrees Adduction: 30 degrees Strength: Pain with resisted abduction and Pain with resisted hip flexion Palpation: Tenderness over left greater trochanter and SI joint Log roll: non-painful. Straight leg raise: Negative Neurovascular Status: Sensation Intact, Moves foot and ankle up AND down, and 2+ dorsalis pedis Imaging: IMPRESSION: Normal MRI of the left hip. Big Machine Consultant: PSCB Transcribe Date/Time: Sep 23 2024 9:02A Dictated by : RAISSA PALMER MD This examination was interpreted and the report reviewed and electronically signed by: GRACE REYES MD on Sep 23 2024 3:28PM EST Results-Findings * * *Final Report* * * DATE OF EXAM: Sep 23 2024 7:35AM WRM [id number] - MRI HIP WO IVCON LT / PROCEDURE REASON: Pain of left hip * * * * Physician Interpretation * * * * EXAMINATION: MRI HIP WO IVCON LT HISTORY: Pain of left hip, tenderness. Concern for intra-articular issue versus piriformis syndrome. TECHNIQUE: Routine multiplanar MRI of the hip without contrast COMPARISON: Radiograph left hip 09/08/2024 RESULT: Hip joints: Left hip: Mild fraying with increased signal in the anterior labrum (7:16 for example). No discrete labral tear. The articular cartilage is preserved. There is no joint effusion. Large [id number]-[id number] images of the right hip are unremarkable. Evaluation of articular cartilage and labrum is limited. Bone Marrow: No fracture or suspicious marrow replacing lesions. Sacroiliac joints: Within normal limits. Pubic symphysis: Within normal limits. Tendons: The iliopsoas, hamstring, gluteal, and rectus femoris tendons are intact. Muscles: Within normal limits. Other: Hysterectomy Localizer images: No significant additional findings. Supporting Subjective Information Below: Past Surgical History: PAST SURGICAL HISTORY Procedure Laterality Date COLONOSCOPY SCREENING 02/08/2024 EGD W/O BRSH SPEC VARICIES INJ 02/08/2024 LAPS ABD PRTMANDOMENTUM DX W/WO SPEC BR/WA SPX 2014 Laparoscopy - for r/o endometriosis, foung to have a cyst PT ED OBSTET (more content not included)... [facility] Culture, Blood (WB)on 2024 CUB Blood cultures x2, from two different sites No growth in 5 days. Normal [facility] Comment on above: Performed By: #### L 100.0100, L500.2500, L501.4021 #### [facility] [address] [place], [place], [address] Culture, Blood (WB)on 2024 CUB Blood cultures x2, from two different sites No growth in 5 days. Normal [facility] Comment on above: Performed By: #### L 300.3900, M200.1000, L500.4050, L100.0100, L300.4310, L503.6005 ####[facility] [address] [place], [place], [address] Urine Cultureon 03-04-2025 [facility] Mixed Gram Positive Organisms [place]ock Count 80,000-100,000 MIXC Mixed contaminants. Submit a new specimen if indicated. Normal [facility] Comment on above: Performed By: #### M 100.2200, L400.0001, M100.678 ####[facility] [address] [place], [address] 12 Lead EKGon 03-02-2025 12 Lead EKG [facility] Cardiovascular Services [address] [place] [address] 12 Lead EKG 03/02/25 1602 MR#: [id number] Acct: [id number] Name: MACEY CAMPBELL Rep #: [id number] : 1990 34 From: Deni Merida MD Attending Dr: Status: DEP ER Ordering Dr: Atilio Hall MD Date: 03/02/25 Location: ED Sex: F C Admitted: Test Reason : FEVER Blood Pressure : */* mmHG Vent. Rate : 105 BPM Atrial Rate : 105 BPM P-R Int : 138 ms QRS Dur : 76 ms QT Int : 316 ms P-R-T Axes : 65 61 62 degrees QTcB Int : 417 ms Sinus tachycardia Otherwise normal ECG Confirmed by DENI MERIDA MD ([id number]), supervising editor trailer EDWIN LYON ([id number]) on 03/03/2025 8:18:50 AM Referred By: Atilio Hall Confirmed By: DENI MERIDA MD 03/03/25 0818 Date Deni Merida MD CC: ANGELITO Garduno; Dr. Atilio Hall MD Signed Normal [facility] CBC W/Diff, Automatedon 05-0 Absolute Lymph 0.62 X10 3/uL Low 0.83-4.51 [facility] Comment on above: Performed By: #### L 300.3900, M200.1000, L500.4050, L100.0100, L300.4310, L503.6005 #### [facility] [address] [place], [address] Absolute Neut 7.8 X10 3/uL High 2.0-7.7 [facility] Comment on above: Performed By: #### L 300.3900, M200.1000, L500.4050, L100.0100, L300.4310, L503.6005 #### [facility] [address] [place], [address] Basophils/100 WBC (Bld) 0.9 % Normal 0-1 [facility] Comment on above: Performed By: #### L 300.3900, M200.1000, L500.4050, L100.0100, L300.4310, L503.6005 #### [facility] [address] [place], [address] Eosinophils/100 WBC (Bld) 2.0 % Normal 0-5 [facility] Comment on above: Performed By: #### L 300.3900, M200.1000, L500.4050, L100.0100, L300.4310, L503.6005 #### [facility] [address] [place], [address] Erythrocyte distribution width (RBC) [Ratio] 13.9 % Normal 11.6-14.6 [facility] Comment on above: Performed By: #### L 300.3900, M200.1000, L500.4050, L100.0100, L300.4310, L503.6005 #### [facility] [address] [place], [address] Hematocrit (Bld) [Volume fraction] 40.9 % Normal 37-47 [facility] Comment on above: Performed By: #### L 300.3900, M200.1000, L500.4050, L100.0100, L300.4310, L503.6005 #### [facility] [address] [place], [address] Hemoglobin (Bld) [Mass/Vol] 13.6 g/dL Normal 12.0-15.0 [facility] Comment on above: Performed By: #### L 300.3900, M200.1000, L500.4050, L100.0100, L300.4310, L503.6005 #### [facility] [address] [place], [address] IG% 0.700 Normal 0.0-0.9 [facility] Comment on above: Result Comment: IG% - Immature Granulocytes (promyelocytes, myelocytes and metamyelocytes) > 1% indicates that a LEFT SHIFT is Present. Performed By: #### L 300.3900, M200.1000, L500.4050, L100.0100, L300.4310, L503.6005 #### [facility] [address] [place], [address] Lymphocytes/100 WBC (Bld) 6.4 % Low 19-41 [facility] Comment on above: Performed By: #### L 300.3900, M200.1000, L500.4050, L100.0100, L300.4310, L503.6005 #### [facility] [address] [place], [address] MCH (RBC) [Entitic mass] 30.2 pg Normal 27.0-32.0 [facility] Comment on above: Performed By: #### L 300.3900, M200.1000, L500.4050, L100.0100, L300.4310, L503.6005 #### [facility] [address] [place], [address] MCHC (RBC) [Mass/Vol] 33.3 g/dL Normal 32-36 [facility] Comment on above: Performed By: #### L 300.3900, M200.1000, L500.4050, L100.0100, L300.4310, L503.6005 #### [facility] [address] [place], [address] MCV (RBC) [Entitic vol] 90.9 fL Normal 81-99 [facility] Comment on above: Performed By: #### L 300.3900, M200.1000, L500.4050, L100.0100, L300.4310, L503.6005 #### [facility] [address] [place], [address] Monocytes/100 WBC (Bld) 9.4 % Normal 0-10 [facility] Comment on above: Performed By: #### L 300.3900, M200.1000, L500.4050, L100.0100, L300.4310, L503.6005 #### [facility] [address] [place], [address] Neutrophils/100 WBC (Bld) 80.6 % High 47-70 [facility] Comment on above: Performed By: #### L 300.3900, M200.1000, L500.4050, L100.0100, L300.4310, L503.6005 #### [facility] [address] [place], [address] Nucleated RBC (Bld) [#/Vol] 0 10*3/uL Normal 0-5 [facility] Comment on above: Performed By: #### L 300.3900, M200.1000, L500.4050, L100.0100, L300.4310, L503.6005 #### [facility] [address] [place], [address] Platelet mean volume (Bld) [Entitic vol] 10.3 fL Normal 6.2-12.0 [facility] Comment on above: Performed By: #### L 300.3900, M200.1000, L500.4050, L100.0100, L300.4310, L503.6005 #### [facility] [address] [place], [address] Platelets (Bld) [#/Vol] 279 10*3/uL Normal 150-450 [facility] Comment on above: Performed By: #### L 300.3900, M200.1000, L500.4050, L100.0100, L300.4310, L503.6005 #### [facility] [address] [place], [address] RBC (Bld) [#/Vol] 4.50 10*6/uL Normal 4.2-5.4 [facility] Comment on above: Performed By: #### L 300.3900, M200.1000, L500.4050, L100.0100, L300.4310, L503.6005 #### [facility] [address] [place], [address] RDW SD 46.5 fl High 35.1-43.9 [facility] Comment on above: Performed By: #### L 300.3900, M200.1000, L500.4050, L100.0100, L300.4310, L503.6005 #### [facility] [address] [place], [address] WBC (Bld) [#/Vol] 9.7 10*3/uL Normal 4.4-11.0 [facility] Comment on above: Performed By: #### L 300.3900, M200.1000, L500.4050, L100.0100, L300.4310, L503.6005 #### [facility] [address] [place], [address] CNOVon 03-02-2025 CNOV Office Visit ([facility]) MACEY CAMPBELL ([id number]) 1990 F Date Time Provider Department 03/02/25 3:00 PM BERNABE ISLAS [facility] During your visit today, we recorded the following information about you: Temperature Pulse Respiration Blood pressure 101.7 degrees 121/minute 18/minute 125/71 Weight 81.7 kg Bernabe Islas APRN.FRANCHISE DEVELOPMENT MANAGER 03/02/2025 6:50 PM Signed [facility] Subjective Macey Campbell is a 34 year old female. Patient presents with: Low Back Pain: Chronic L hip pain, low back pain started at work today with lifting, fever HPI Nontoxic-appearing 34-year-old female presents urgent care chief complaint lower back pain. Duration of symptom today. Associated symptoms 9-10 out of 10 lower back pain. Presents today for evaluation. OTC medications Tylenol Motrin does not help. History of low back pain this is worse. Denies any injuries. No saddle anesthesia or incontinence. Past medical history prescription medications allergies reviewed. Review of Systems Constitutional: Negative for chills, diaphoresis, fatigue and fever. HENT: Negative for congestion, drooling, ear discharge, ear pain, rhinorrhea, sinus pressure, sinus pain, sneezing, sore throat and trouble swallowing. Eyes: Negative for pain, discharge, redness, itching and visual disturbance. Respiratory: Negative for cough, chest tightness, shortness of breath and wheezing. Cardiovascular: Negative for chest pain. Gastrointestinal: Negative for abdominal distention, abdominal pain, blood in stool, constipation, diarrhea, nausea and vomiting. Genitourinary: Negative for difficulty urinating and dysuria. Musculoskeletal: Positive for back pain. Negative for arthralgias, joint swelling, neck pain and neck stiffness. Skin: Negative for rash. Neurological: Negative for dizziness, weakness, numbness and headaches. Objective BP 125/71 Pulse (!) 121 Temp (!) 38.7 ?C (101.7 ?F) Resp 18 Wt 81.7 kg (180 lb 1.9 oz) LMP 08/04/2016 SpO2 97% BMI 31.91 kg/m? Physical Exam Constitutional: Appearance: Normal appearance. She is normal weight. HENT: Head: Normocephalic. Eyes: Conjunctiva/sclera: Conjunctivae normal. Cardiovascular: Rate and Rhythm: Normal rate. Pulmonary: Effort: Pulmonary effort is normal. Musculoskeletal: Arms: Cervical back: Normal range of motion. Comments: Back pain highlighted area. No erythema edema noted. No rashes. No spinal tenderness. Skin: Findings: No rash. Neurological: General: No focal deficit present. Mental Status: She is alert and oriented to person, place, and time. Mental status is at baseline. {ASSESSMENT/PLAN: 1. Low back pain, unspecified back pain laterality, unspecified chronicity, unspecified whether sciatica present - ICD9: 724.2, ICD10: M54.50 Diagnosis lower back pain. On examination patient's pain 9-10 out of 10. Coupled with fever and tachycardia referred to ED. Will be seen [facility]. Bernabe Islas APRN.FRANCHISE DEVELOPMENT MANAGER MDM Procedures Allergies As of Date: 03/02/2025 Noted Allergy Reaction CLEOCIN (CLINDAMYCIN) 10/16/2021 2 - Rash SULFA (SULFONAMIDE ANTIBIOTICS) 12/13/2010 2 - Rash Date Reviewed: 03/02/2025 Reviewed by: Kim Hartmann MA - Fully Assessed Reason for Visit: Low Back Pain [126] Cmt: Chronic L hip pain, low back pain started at work today with lifting, fever Primary Visit Diagnosis:Low back pain, unspecified back pain laterality, unspecified chronicity, unspecified whether sciatica present [M54.50] Prescriptions as of 03/02/2025 - gabapentin (NEURONTIN) 300 mg capsule Take 1 capsule by mouth three times a day for 180 days. - rizatriptan (MAXALT ARMORING MACHINE OPERATOR) 10 mg disintegrating tablet Take 1 tablet (10 mg) by mouth as needed. May repeat in 2 hours if needed - metFORMIN ER (GLUCOPHAGE XR) 500 mg 24 hr tablet Take 1 tablet by mouth daily with breakfast. - spironolactone (ALDACTONE) 50 mg tablet Take 1 tablet by mouth two times a day. - omeprazole (PRILOSEC) 40 mg capsule Take 1 capsule by mouth once daily. - rosuvastatin (CRESTOR) 5 mg tablet Take 2 tablets by mouth daily at bedtime. - amitriptyline (ELAVIL) 10 mg tablet Take 1 tablet by mouth daily at bedtime. - estradiol (ESTRACE) 1 mg tablet Problem List As Of Date 03/02/2025 Noted Resolved Gastroenteritis [K52.9] 12/13/2010 Abdominal pain, acute, right upper quadrant [R1*12/13/2010 Tachycardia [R00.0] 12/13/2010 Menstrual irregularity [N92.6] 12/13/2010 Infertility associated with anovulation [N97.0] 09/13/2012 PCOS (polycystic ovarian syndrome) [E28.2] 09/27/2012 12/31/2021 Pain, upper back [M54.9] 09/07/2013 01/21/2022 Pelvic pain in female [R10.2] 10/31/2013 Pain in joint, shoulder region [M25.519] 01/10/2015 01/21/2022 GERD without esophagitis [K21.9] 12/31/2021 Obesity, Class I, BMI 30-34.9 [E66.811] 12/31/2021 Toba (more content not included)... Normal [facility] Chest PA and Lateralon 03-02 Chest PA and Lateral [facility] Imaging Services [address] [place], [place] [address] Chest PA and Lateral MR#: [id number] Acct: [id number] Name: MACEY CAMPBELL Rep #: [id number] : 1990 F 34 From: Ozzy Campbell MD PCP: ANGELITO Mccrary Status: REG ER Study: Chest PA and Lateral Date of Exam: 03/02/25 Exam# [id number] Ordering Dr: Atilio Hall MD PROCEDURE: CHEST PA AND LATERAL (RADCXR), 03/02/2025 REASON FOR EXAM: FEVER TECHNIQUE: PA and lateral views of the chest were obtained. COMPARISON: 01/11/2025 FINDINGS: Heart: Unremarkable. Mediastinum: Unremarkable. Lungs/pleura: No focal consolidation. No pleural effusion or visible pneumothorax. Bones: Unremarkable. Lines and support devices: None. Other: None. RAD/Chest PA and Lateral IMPRESSION: No visible acute cardiopulmonary findings Reading Location: [facility] CC: ACCOUNTS PAYABLE TECHNICIAN-C Radha Garduno; Dr. Atilio Hall MD Big Machine Consultant: Signed Normal [facility] Comprehensive Metabolic Prof ilon 03-02-2025 Albumin [Mass/Vol] 4.5 g/dL Normal 3.5-5.0 [facility] Comment on above: Performed By: #### L 300.3900, M200.1000, L500.4050, L100.0100, L300.4310, L503.6005 #### [facility] Laboratory [address] [place], [address] Albumin/Globulin [Mass ratio] 1.5 {ratio} Normal 0.9-2.4 [facility] Comment on above: Performed By: #### L 300.3900, M200.1000, L500.4050, L100.0100, L300.4310, L503.6005 #### [facility] [address] [place], [address] ALK PHOS 79 U/L Normal 35-104 [facility] Comment on above: Performed By: #### L 300.3900, M200.1000, L500.4050, L100.0100, L300.4310, L503.6005 #### [facility] [address] [place], [address] ALT [Catalytic activity/Vol] 21 U/L Normal <=34 [facility] Comment on above: Result Comment: Hemo lysis present, Results??could be affected. ?? Performed By: #### L 300.3900, M200.1000, L500.4050, L100.0100, L300.4310, L503.6005 #### [facility] [address] [place], [address] AST [Catalytic activity/Vol] 33 U/L High <=31 [facility] Comment on above: Result Comment: Hemo lysis present, Results??could be affected. ?? Performed By: #### L 300.3900, M200.1000, L500.4050, L100.0100, L300.4310, L503.6005 #### [facility] [address] [place], [address] Bilirubin [Mass/Vol] 0.17 mg/dL Normal 0.00-1.30 [facility] Comment on above: Performed By: #### L 300.3900, M200.1000, L500.4050, L100.0100, L300.4310, L503.6005 #### [facility] [address] [place], [address] BUN/CRE 9.4 RATIO Low 10-20 [facility] Comment on above: Performed By: #### L 300.3900, M200.1000, L500.4050, L100.0100, L300.4310, L503.6005 #### [facility] [address] [place], [address] Calcium [Mass/Vol] 9.8 mg/dL Normal 7.6-11.0 [facility] Comment on above: Performed By: #### L 300.3900, M200.1000, L500.4050, L100.0100, L300.4310, L503.6005 #### [facility] [address] [place], [address] Chloride [Moles/Vol] 103 mmol/L Normal 98-108 [facility] Comment on above: Performed By: #### L 300.3900, M200.1000, L500.4050, L100.0100, L300.4310, L503.6005 #### [facility] [address] [place], [address] CO2 [Moles/Vol] 19.0 mmol/L Low 21.0-32.0 [facility] Comment on above: Performed By: #### L 300.3900, M200.1000, L500.4050, L100.0100, L300.4310, L503.6005 #### [facility] [address] [place], [address] Creatinine [Mass/Vol] 0.79 mg/dL Normal 0.70-1.20 [facility] Comment on above: Performed By: #### L 300.3900, M200.1000, L500.4050, L100.0100, L300.4310, L503.6005 #### [facility] [address] [place], [address] ECRCL 97.51 ml/min Normal 50-250 [facility] Comment on above: Performed By: #### L 300.3900, M200.1000, L500.4050, L100.0100, L300.4310, L503.6005 #### [facility] [address] [place], [address] GAP 13 Normal 5-15 [facility] Comment on above: Performed By: #### L 300.3900, M200.1000, L500.4050, L100.0100, L300.4310, L503.6005 #### [facility] [address] [place], [address] GFR/1.73 sq M.predicted among non-blacks MDRD (S/P/Bld) [Vol rate/Area] 99 mL/min/{1.73_m2} Normal >60 [facility] Comment on above: Result Comment: mL/m in/1.73m2 CKD-EPI Creatinine Equation (2020) Performed By: #### L 300.3900, M200.1000, L500.4050, L100.0100, L300.4310, L503.6005 #### [facility] [address] [place], [address] Globulin (S) [Mass/Vol] 3.0 g/dL Normal 2.2-4.2 [facility] Comment on above: Performed By: #### L 300.3900, M200.1000, L500.4050, L100.0100, L300.4310, L503.6005 #### [facility] [address] [place], [address] Glucose [Mass/Vol] 90 mg/dL Normal 70-99 [facility] Comment on above: Performed By: #### L 300.3900, M200.1000, L500.4050, L100.0100, L300.4310, L503.6005 #### [facility] [address] [place], [address] Potassium [Moles/Vol] 4.3 mmol/L Normal 3.3-5.1 [facility] Comment on above: Result Comment: Hemo lysis present, Results??could be affected. ?? Performed By: #### L 300.3900, M200.1000, L500.4050, L100.0100, L300.4310, L503.6005 #### [facility] [address] [place], [address] Sodium [Moles/Vol] 136 mmol/L Normal 133-145 [facility] Comment on above: Performed By: #### L 300.3900, M200.1000, L500.4050, L100.0100, L300.4310, L503.6005 #### [facility] [address] [place], [address] T PROT 7.4 g/dL Normal 5.9-8.4 [facility] Comment on above: Performed By: #### L 300.3900, M200.1000, L500.4050, L100.0100, L300.4310, L503.6005 #### [facility] [address] [place], [address] Urea nitrogen [Mass/Vol] 7 mg/dL Normal 4-19 [facility] Comment on above: Performed By: #### L 300.3900, M200.1000, L500.4050, L100.0100, L300.4310, L503.6005 #### [facility] [address] [place], [address] Emergency Department Summary on 03-02-2025 Emergency Department Summary [facility] Medical Records Department [address] [place] [address] Emergency Department Summary 03/02/25 MR#: [id number] Acct: [id number] Name: MACEY CAMPBELL Rep #: [id number] : 1990 34 From: Atiilo Hall MD PCP: ANGELITO Mccrary Status:REG ER Location: ED HPI History of Present Illness Chief Complaint: Fever Informant: patient Narrative Narrative: 34-year-old female sent over from urgent care because of fever. She went to urgent care because her back was hurting and did not know she had fever until she was there and it was 102 according to her. She took some Tylenol about 1.5 hours ago because of a migraine. She has had a headache since yesterday and low back pain since this morning. It is low and diffuse bilateral. There is no radiation to her lower extremities, although she does have some left thigh/hip pain that is chronic for the past almost year, she is in physical therapy for this and diagnosed with a torn labrum. 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 Denies any numbness or weakness in her legs. No saddle anesthesia. No bowel or bladder dysfunction. No numbness anywhere else. Denies any abdominal pain. Also she has no cough, diarrhea or vomiting, sore throat, earache, just the headache and she states it is not severe and denies any neck stiffness or confusion/neurologic symptoms or photophobia. Her back definitely hurts more to move. [facility] Medical History Acid reflux Chronic neck and back pain Severe headache Endometriosis Ectopic History of PCOS History of ovarian cyst Home Medications ???Medication ???Instructions ???Recorded ???Last Taken ???Type estradiol 1 mg tablet 1 mg PO DAILY #90 tabs 04/14/24 Un known Rx metformin 500 mg tablet 500 mg PO DAILY 04/14/24 Unknown H istory spironolactone 50 mg tablet 50 mg PO BID 04/14/24 Unknown Hist ory carbamazepine 100 mg 100 mg PO BID #20 tabs 01/11/25 Un known Rx tablet,extended release,12 hr rosuvastatin 5 mg tablet (Crestor) 10 mg PO DAILY 01/11/25 Unknown History orphenadrine citrate 100 mg 100 mg PO Q12H PRN muscle pain #14 03/02/25 Unknown Rx tablet,extended release tabs Allergy/AdvReac Type Severity Reaction Status Date / Time Sulfa (Sulfonamide Allergy Mild Rash Verified 03/02/25 15:12 Antibiotics) clindamycin Allergy Rash Verified 03/02/25 15:12 Family History Grandfather Diabetes Heart disease Surgical History H/O unilateral oophorectomy ( 01/30/21) History of right oophorectomy History of LAVH [place] teeth extracted History of laparoscopy Social History (Updated 03/02/25 @ 16:13 by Adelso Romero) household members: family and children housing: house current occupational status: employed Smoking Status: Current every day smoker tobacco type: cigarettes alcohol intake: former details: social substance use type: does not use caffeine: Yes what type of physical activity do you participate in: none seatbelt use: always do you feel safe at home: Yes 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 [employer] ED Constitutional Constitutional ED: Reports other Details: Fever when checked but patient has had no symptoms of fevers lately ; Denies chills or fever(s) Eyes Eyes: Denies change in vision or diplopia ENT ENT ED: Denies rhinorrhea or sore throat Cardiovascular Cardiovascular: Denies chest pain or palpitations Respiratory/Chest Respiratory/Chest: Denies cough or dyspnea Gastrointestinal Gastrointestinal: Reports nausea; Denies abdominal pain, constipation, fecal incontinence or vomiting Genitourinary Genitourinary ED: Reports other Details: no urinary retention ; Denies abdominal discomfort, dysuria, hematuria, urinary frequency or urinary incontinence Musculoskeletal Musculoskeletal: Reports as per HPI, back pain and other Details: Chronic left hip and proximal thigh pain unchanged ; Denies neck pain Integumentary Denies rash or wounds Neurologic Neurologic: Reports headache(s); Denies paresthesias or weakness Psychiatric Psychiatric: Denies anxiety or suicidal thoughts EXAM Physical Exam Const Vital Signs: 03/02/25 15:11 03/02/25 15:47 03/02/25 16:12 Temperature 100.2 F H Temperature Source Oral Pulse Rate 134 H Respiratory Rate 18 Respiratory Effort Normal Non-Labored Respiratory Pattern Normal Blood Pressure 128/79 H Blood Pressure Mean 95 Pulse Ox 99 99 Oxygen Delivery Method Room Air Room Air 03/02/25 16:15 Temperature 101.5 F (more content not included)... Normal [facility] Lactic Acidon 03-02-2025 Lactate [Moles/Vol] 1.8 mmol/L Normal 0.0-2.0 [facility] Comment on above: Order Comment: Y Performed By: #### L 300.3900, M200.1000, L500.4050, L100.0100, L300.4310, L503.6005 #### [facility] [address] [place], [address] M100.678on 03-02-2025 M100.678 Pending SARS-CoV-2 (COVID 19) Negative INFLUENZA A Negative INFLUENZA B Negative RSV PCR Negative Normal [facility] Comment on above: Performed By: #### M 100.2200, L400.0001, M100.678 ####[facility] [address] [place], [address] Partial Thromboplast Timeon 03-02-2025 aPTT Coag (Bld) [Time] 23.3 s Low 24.1-36.2 [facility] Comment on above: Performed By: #### L 300.3900, M200.1000, L500.4050, L100.0100, L300.4310, L503.6005 #### [facility] [address] [place], [address] Prothrombin Time w/INRon INR Coag (PPP) [Relative time] 1.0 {INR} Normal [facility] Comment on above: Performed By: #### L 300.3900, M200.1000, L500.4050, L100.0100, L300.4310, L503.6005 #### [facility] [address] [place], [address] PT Coag (PPP) [Time] 13.0 s Normal 11.7-14.9 [facility] Comment on above: Performed By: #### L 300.3900, M200.1000, L500.4050, L100.0100, L300.4310, L503.6005 #### [facility] [address] [place], [address] Urinalysis, Completeon 03-02 AMORPHOUS 2+ PHOS Normal [facility] Comment on above: Order Comment: CLEAN CATCH Performed By: #### M 100.2200, L400.0001, M100.678 ####[facility] [address] [place], [address] EPI,SQUAMOUS 0-5 SEEN Normal 5-10 [facility] Comment on above: Order Comment: CLEAN CATCH Performed By: #### M 100.2200, L400.0001, M100.678 ####[facility] [address] [place], [address] WBC 0-5 SEEN Normal 0-5 [facility] Comment on above: Order Comment: CLEAN CATCH Performed By: #### M 100.2200, L400.0001, M100.678 ####[facility] [address] [place], [address] BACTERIA 0 SEEN Normal None Seen [facility] Comment on above: Order Comment: CLEAN CATCH Performed By: #### M 100.2200, L400.0001, M100.678 ####[facility] [address] [place], [address] Mucus Ql (Urine sed) 0 SEEN Normal [facility] Comment on above: Order Comment: CLEAN CATCH Performed By: #### M 100.2200, L400.0001, M100.678 ####[facility] [address] [place], [address] RBC 0 SEEN Normal 0-5 [facility] Comment on above: Order Comment: CLEAN CATCH Performed By: #### M 100.2200, L400.0001, M100.678 ####[facility] [address] [place], [address] CNTHERAPYon 02-21-2025 CNTHERAPY OT/PT/Speech Visit (PTWS) MACEY CAMPBELL ([id number]) 1990 F Date Time Provider Department 02/21/25 8:15 AM MACEY KAISER PTMARCO Date Time Provider Department Center 02/21/2025 8:15 AM [id number] KAISER PTMARCO [place] [facility] Reason for Visit: PT Discharge [752] Primary Visit Diagnosis:Pain of left hip [M25.552] Allergies As of Date: 02/21/2025 Noted Allergy Reaction CLEOCIN (CLINDAMYCIN) 10/16/2021 2 - Rash SULFA (SULFONAMIDE ANTIBIOTICS) 12/13/2010 2 - Rash Date Reviewed: 02/09/2025 Reviewed by: Elaina Bartlett MA - Fully Assessed Prescriptions as of 05/01/2025 - aspirin, enteric coated (ECOTRIN LOW STRENGTH) 81 mg EC tablet Take 1 tablet by mouth two times a day for 21 days. TO BEGIN 24 HOURS POST OP Patient should start on April 27, 2025. - methocarbamol (ROBAXIN) 500 mg tablet Take 1 tablet by mouth four times a day as needed (muscle spasms) for up to 7 days. - oxyCODONE IR (ROXICODONE) 5 mg immediate release tablet Take 1 tablet by mouth every 8 hours as needed for pain (severe post operative pain) for up to 5 days. for pain. - docusate sodium (COLACE) 100 mg capsule Take 1 capsule by mouth two times a day. - ondansetron (ZOFRAN) 4 mg tablet Take 1 tablet by mouth every 8 hours as needed for nausea/vomiting. - diclofenac, EC, (VOLTAREN) 75 mg EC tablet Take 1 tablet by mouth two times a day for 14 days. for pain. Patient should start on April 29, 2025. - omeprazole (PRILOSEC) 40 mg capsule Take 1 capsule by mouth once daily. - gabapentin (NEURONTIN) 300 mg capsule Take 1 capsule by mouth three times a day for 180 days. - rizatriptan (MAXALT ARMORING MACHINE OPERATOR) 10 mg disintegrating tablet Take 1 tablet (10 mg) by mouth as needed. May repeat in 2 hours if needed - metFORMIN ER (GLUCOPHAGE XR) 500 mg 24 hr tablet Take 1 tablet by mouth daily with breakfast. - spironolactone (ALDACTONE) 50 mg tablet Take 1 tablet by mouth two times a day. - rosuvastatin (CRESTOR) 5 mg tablet Take 2 tablets by mouth daily at bedtime. - amitriptyline (ELAVIL) 10 mg tablet Take 1 tablet by mouth daily at bedtime. - estradiol (ESTRACE) 1 mg tablet [employer]: Therapy (PT/OT/Speech/Resp) ID: [id number] 02/21/2025 8:36 AM Author: MACEY KAISER Signed by MACEY KAISER PT on 02/21/2025 at 8:36 AM Document text: Program_ID:[id number] Access Code: [email or web address] URL: [email or web address] Date: 02-21-2025 Prepared By: [place] Program Notes Exercises - Hooklying Gluteal Sets - 2 x daily - 7 x weekly - 2 sets - 5 reps - Supine Posterior Pelvic Tilt - 2 x daily - 7 x weekly - 4 sets - 10 reps - Cat Cow - 2 x daily - 7 x weekly - 4 sets - 10 reps - Quadruped Rocking Slow - 2 x daily - 7 x weekly - 4 sets - 10 reps -------- Normal [facility] THERAPY NTon 02-21-2025 THERAPY NT HNO ID: [id number] Author: MACEY KAISER PT Service: ? Author Type: Physical Therapist Type: Therapy (PT/OT/Speech/Resp) Filed: 02/21/2025 08:36 Note Text: Program_ID:[id number] Access Code: [email or web address] URL: [email or web address] Date: 02-21-2025 Prepared By: Long Warren Program Notes Exercises - Hooklying Gluteal Sets - 2 x daily - 7 x weekly - 2 sets - 5 reps - Supine Posterior Pelvic Tilt - 2 x daily - 7 x weekly - 4 sets - 10 reps - Cat Cow - 2 x daily - 7 x weekly - 4 sets - 10 reps - Quadruped Rocking Slow - 2 x daily - 7 x weekly - 4 sets - 10 reps Normal [facility] CBC W/Diff, Automatedon 01-31 PATH REV Reviewed Normal [facility] Comment on above: Result Comment: SEE REPORT IN PATIENT'S EMR AMENDED REPORT 02/16/25 1609 PATH REV previously reported as: March Performed By: #### L 100.0100, L500.2500, L501.4021 #### [facility] [address] [place], [address] CNOVon 02-09-2025 CNOV Office Visit (FAMPWS) MACEY CAMPBELL ([id number]) 1990 F Date Time Provider Department 02/09/25 8:20 AM SYL TAI FAMPWS During your visit today, we recorded the following information about you: Temperature Pulse Blood pressure Weight 97.4 degrees 89/minute 110/76 81.2 kg Syl Tai APRN.CNP 02/09/2025 8:50 AM Signed This is a 34 year old female who presents today with: Patient presents with: Follow Up HISTORY OF PRESENT ILLNESS: Macey Campbell is a 34 year old female. Patient presents with: Follow Up Facial pain right cheek. Achy- some sharp. Did not fill tegretol. Some sinusitis. 01/09. Some sharp periods that may last up to 10 min. Some family Hx of nerve trouble. Pressing on her right cheek aggravates it. Tobacco use. No further chest pain or ABDOMINAL PAIN/. No gall stones. Aware of hepatic steatosis. PAST MEDICAL HISTORY: PAST MEDICAL HISTORY Diagnosis Date GERD without esophagitis 12/31/2021 Obesity, Class I, BMI 30-34.9 12/31/2021 PCOS (polycystic ovarian syndrome) Tobacco use disorder 12/31/2021 PAST SURGICAL HISTORY Procedure Laterality Date COLONOSCOPY SCREENING 02/08/2024 EGD W/O BRSH SPEC VARICIES INJ 02/08/2024 LAPS ABD PRTMANDOMENTUM DX W/WO SPEC BR/WA SPX 2014 Laparoscopy - for r/o endometriosis, foung to have a cyst PT ED OBSTETRICS AND GYNECOLOGY N/A 12/2019 laparoscopic hysterectomy - for endometriosis - Dr. Shelley REMOVAL OF OVARY(S) Right 10/24/2020 ovarian torsion REMOVAL OF OVARY(S) Left 12/2020 Dr Jo SALPINGECTOMY Right 12/27/2016 laparoscopic Right salpingectomy- ECTOPIC ALLERGIES Cleocin [Clindamycin] and Sulfa (Sulfonamide Antibiotics) MEDICATIONS Current Outpatient Medications Medication Sig rizatriptan (MAXALT ARMORING MACHINE OPERATOR) 10 mg disintegrating tablet Take 1 tablet (10 mg) by mouth as needed. May repeat in 2 hours if needed metFORMIN ER (GLUCOPHAGE XR) 500 mg 24 hr tablet Take 1 tablet by mouth daily with breakfast. spironolactone (ALDACTONE) 50 mg tablet Take 1 tablet by mouth two times a day. omeprazole (PRILOSEC) 40 mg capsule Take 1 capsule by mouth once daily. amitriptyline (ELAVIL) 10 mg tablet Take 1 tablet by mouth daily at bedtime. estradiol (ESTRACE) 1 mg tablet rosuvastatin (CRESTOR) 5 mg tablet Take 2 tablets by mouth daily at bedtime. No current facility-administere d medications for this visit. FAMILY HISTORY Problem Relation Age of Onset Cervical Cancer Mother other (breast cyst [Other]) Mother Hyperlipidemia Father Hypertension Father other (sepsis) Father (after ruptured appe and another surgical complication where bowel was perforated during [place]). No Known Problems Sister No Known Problems Sister ADD/ADHD Brother Depression Brother ADD/ADHD Brother Stroke Maternal Grandmother No Known Problems Maternal Grandfather Hypertension Paternal Grandmother Hyperlipidemia Paternal Grandmother Skin Cancer Paternal Grandmother other (ewings sarcoma) Paternal Grandmother Hypertension Paternal Grandfather Heart Attack Paternal Grandfather Diabetes Paternal Grandfather Hyperlipidemia Paternal Grandfather COPD Paternal Grandfather ADD/ADHD Son Social History Tobacco Use Smoking status: Every Day Current packs/day: 0.50 Average packs/day: 0.5 packs/day for 15.0 years (7.5 ttl pk-yrs) Types: Cigarettes Smokeless tobacco: Never Vaping Use Vaping status: Never Used Substance Use Topics Alcohol use: Yes Alcohol/week: 1.0 standard drink of alcohol Types: 1 Glasses of Wine (5oz) per week Comment: Social Drug use: No EXAM: BP 110/76 Pulse 89 Temp 36.3 ?C (97.4 ?F) (Left Tympanic) Wt 81.2 kg (179 lb) LMP 08/04/2016 SpO2 99% BMI 31.71 kg/m? PHYSICAL EXAM: Physical Exam Vitals reviewed. Constitutional: Appearance: Normal appearance. HENT: Head: Normocephalic. Right Ear: Tympanic membrane, ear canal and external ear normal. There is no impacted cerumen. Left Ear: Tympanic membrane, ear canal and external ear normal. There is no impacted cerumen. Nose: Congestion and rhinorrhea present. Comments: Right nare eroded, purple in color Mouth/Throat: Pharynx: Oropharyngeal exudate present. No posterior oropharyngeal erythema. Cardiovascular: Rate and Rhythm: Normal rate and regular rhythm. Pulses: Normal pulses. Heart sounds: Normal heart sounds. Pulmonary: Effort: Pulmonary effort is normal. Breath sounds: Normal breath sounds. Abdominal: General: Bowel sounds are normal. Palpations: Abdomen is soft. Musculoskeletal: General: Normal range of motion. Right lower leg: No edema. Left lower leg: No edema. Comments: Moves all ext. And walks w/o assistive device Skin: General: Skin is warm and dry. Neurological: Mental Status: She is alert and oriented to person, place, and time. LABS: ASSESSMENT/PLAN: 1. Chronic max (more content not included)... [facility] CNTHERAPYon 02-09-2025 CNTHERAPY OT/PT/Speech Visit (PTWS) MACEY CAMPBELL ([id number]) 1990 F Date Time Provider Department 02/09/25 9:30 AM MACEY KAISER PTMARCO Date Time Provider Department [place] 02/09/2025 9:30 AM [id number] KAISER PTMARCO Vásquez Reason for Visit: Physical Therapy [503] Primary Visit Diagnosis:Pain of left hip [M25.552] Other Visit Diagnoses:Pain of left hip joint [M25.552] Acute back pain with sciatica, left [M54.42] Left hip pain [M25.552] Acute left-sided low back pain with left-sided sciatica [M54.42] Allergies As of Date: 02/09/2025 Noted Allergy Reaction CLEOCIN (CLINDAMYCIN) 10/16/2021 2 - Rash SULFA (SULFONAMIDE ANTIBIOTICS) 12/13/2010 2 - Rash Date Reviewed: 02/09/2025 Reviewed by: Elaina Bartlett MA - Fully Assessed Prescriptions as of 02/09/2025 - amoxicillin-clavulan ate potassium (AUGMENTIN) 875-125 mg per tablet Take 1 tablet by mouth every 12 hours for 10 days. - gabapentin (NEURONTIN) 300 mg capsule Take 1 capsule by mouth three times a day for 180 days. - rizatriptan (MAXALT ARMORING MACHINE OPERATOR) 10 mg disintegrating tablet Take 1 tablet (10 mg) by mouth as needed. May repeat in 2 hours if needed - metFORMIN ER (GLUCOPHAGE XR) 500 mg 24 hr tablet Take 1 tablet by mouth daily with breakfast. - spironolactone (ALDACTONE) 50 mg tablet Take 1 tablet by mouth two times a day. - omeprazole (PRILOSEC) 40 mg capsule Take 1 capsule by mouth once daily. - rosuvastatin (CRESTOR) 5 mg tablet Take 2 tablets by mouth daily at bedtime. - amitriptyline (ELAVIL) 10 mg tablet Take 1 tablet by mouth daily at bedtime. - estradiol (ESTRACE) 1 mg tablet [employer]: Therapy (PT/OT/Speech/Resp) ID: [id number] 02/09/2025 9:44 AM Author: MACEY KAISER Signed by MACEY KAISER PT on 02/09/2025 at 9:44 AM Document text: Program_ID:[id number] Access Code: [email or web address] URL: [email or web address] Date: 02-09-2025 Prepared By: Long Warren Program Notes Exercises - Clamshell - 2 x daily - 7 x weekly - 2 sets - 15 reps - Supine Hip Internal and External Rotation - 2 x daily - 7 x weekly - 3 sets - 15 reps - Hooklying Gluteal Sets - 2 x daily - 7 x weekly - 2 sets - 5 reps - Supine Posterior Pelvic Tilt - 2 x daily - 7 x weekly - 4 sets - 10 reps -------- [facility] THERAPY NTon 02-09-2025 THERAPY NT HNO ID: [id number] Author: MACEY KAISER PT Service: ? Author Type: Physical Therapist Type: Therapy (PT/OT/Speech/Resp) Filed: 02/09/2025 09:44 Note Text: Program_ID:[id number] Access Code: [email or web address] URL: [email or web address] Date: 02-09-2025 Prepared By: Long Warren Program Notes Exercises - Clamshell - 2 x daily - 7 x weekly - 2 sets - 15 reps - Supine Hip Internal and External Rotation - 2 x daily - 7 x weekly - 3 sets - 15 reps - Hooklying Gluteal Sets - 2 x daily - 7 x weekly - 2 sets - 5 reps - Supine Posterior Pelvic Tilt - 2 x daily - 7 x weekly - 4 sets - 10 reps [facility] CNTHERAPYon 02-03-2025 CNTHERAPY OT/PT/Speech Visit (PTWS) MACEY CAMPBELL ([id number]) 1990 F Date Time Provider Department 02/03/25 10:15 AM NILA GOMEZ PTWS Date Time Provider Department [place] 02/03/2025 10:15 AM [id number], MARIAH PTWS Rubin Vásquez Reason for Visit: Physical Therapy [503] Primary Visit Diagnosis:Pain of left hip [M25.552] Allergies As of Date: 02/03/2025 Noted Allergy Reaction CLEOCIN (CLINDAMYCIN) 10/16/2021 2 - Rash SULFA (SULFONAMIDE ANTIBIOTICS) 12/13/2010 2 - Rash Date Reviewed: 01/12/2025 Reviewed by: Elaina Bartlett MA - Fully Assessed Prescriptions as of 02/03/2025 - rizatriptan (MAXALT ARMORING MACHINE OPERATOR) 10 mg disintegrating tablet Take 1 tablet (10 mg) by mouth as needed. May repeat in 2 hours if needed - metFORMIN ER (GLUCOPHAGE XR) 500 mg 24 hr tablet Take 1 tablet by mouth daily with breakfast. - spironolactone (ALDACTONE) 50 mg tablet Take 1 tablet by mouth two times a day. - omeprazole (PRILOSEC) 40 mg capsule Take 1 capsule by mouth once daily. - rosuvastatin (CRESTOR) 5 mg tablet Take 2 tablets by mouth daily at bedtime. - amitriptyline (ELAVIL) 10 mg tablet Take 1 tablet by mouth daily at bedtime. - estradiol (ESTRACE) 1 mg tablet [facility] CT BRAIN WO IVCONon 01-27-[address] BRAIN WO IVCON * * *Final Report* * * DATE OF EXAM: Jan 26 2025 2:10PM [facility] 0504 - CT BRAIN WO IVCON / PROCEDURE REASON: Atypical facial pain * * * * Physician Interpretation * * * * CT BRAIN WO IVCON HISTORY: Atypical facial pain TECHNIQUE: Serial axial images without IV contrast were obtained from the vertex to the foramen magnum. MQ: CTBWO_3 CT Radiation dose: Integrated Dose-Length Product (DLP) for this visit = 719 mGy*cm CT Dose Reduction Employed: Automated exposure control(AEC) and iterative recon COMPARISON: None. RESULT: Localizer images: No additional findings. Post-operative change: None. Acute change: No evidence of an acute infarct or other acute parenchymal process. Hemorrhage: No evidence of acute intracranial hemorrhage. ECASS hemorrhagic transformation score: Not Applicable Mass Lesion / Mass Effect: There is no evidence of an intracranial mass or extraaxial fluid collection. No significant mass effect. Chronic change: None apparent. Parenchyma: There is no significant volume loss. Basal cisterns are unremarkable. Ventricles: The ventricles are within normal limits of size and configuration for age. Paranasal sinuses and skull base: Secretions in the left greater than right posterior ethmoid air cells. The paranasal sinuses are otherwise clear. Mastoid air cells are clear. The skull base is unremarkable. Soft tissues are unremarkable. IMPRESSION: No evidence of an intracranial acute process. Big Machine Consultant: ADILENE Transcribe Date/Time: Jan 26 2025 2:40P Dictated by : ALEXANDER MURDOCK MD This examination was interpreted and the report reviewed and electronically signed by: ALEXANDER MURDOCK MD on Jan 26 2025 2:47PM EST [id number] CN [facility] CT Head WO contraston 2024 IMPRESSION: No evidence of an intracranial acute process. Big Machine Consultant: ADILENE Transcribe Date/Time: Jan 26 2025 2:40P Dictated by : ALEXANDER MURDOCK MD This examination was interpreted and the report reviewed and electronically signed by: ALEXANDER MURDOCK MD on Jan 26 2025 2:47PM [facility] DIVISION OF RADIOLOGY * * *Final Report* * * DATE OF EXAM: Jan 26 2025 2:10PM [facility] 0504 - CT BRAIN WO IVCON / PROCEDURE REASON: Atypical facial pain * * * * Physician Interpretation * * * * CT BRAIN WO IVCON HISTORY: Atypical facial pain TECHNIQUE: Serial axial images without IV contrast were obtained from the vertex to the foramen magnum. MQ: CTBWO_3 CT Radiation dose: Integrated Dose-Length Product (DLP) for this visit = 719 mGy*cm CT Dose Reduction Employed: Automated exposure control(AEC) and iterative recon COMPARISON: None. RESULT: Localizer images: No additional findings. Post-operative change: None. Acute change: No evidence of an acute infarct or other acute parenchymal process. Hemorrhage: No evidence of acute intracranial hemorrhage. ECASS hemorrhagic transformation score: Not Applicable Mass Lesion / Mass Effect: There is no evidence of an intracranial mass or extraaxial fluid collection. No significant mass effect. Chronic change: None apparent. Parenchyma: There is no significant volume loss. Basal cisterns are unremarkable. Ventricles: The ventricles are within normal limits of size and configuration for age. Paranasal sinuses and skull base: Secretions in the left greater than right posterior ethmoid air cells. The paranasal sinuses are otherwise clear. Mastoid air cells are clear. The skull base is unremarkable. Soft tissues are unremarkable. DIVISION OF RADIOLOGY Provider, [facility] - 01/26/2025 * * *Final Report* * * DATE OF EXAM: Jan 26 2025 2:10PM [facility] 0504 - CT BRAIN WO IVCON / PROCEDURE REASON: Atypical facial pain * * * * Physician Interpretation * * * * CT BRAIN WO IVCON HISTORY: Atypical facial pain TECHNIQUE: Serial axial images without IV contrast were obtained from the vertex to the foramen magnum. MQ: CTBWO_3 CT Radiation dose: Integrated Dose-Length Product (DLP) for this visit = 719 mGy*cm CT Dose Reduction Employed: Automated exposure control(AEC) and iterative recon COMPARISON: None. RESULT: Localizer images: No additional findings. Post-operative change: None. Acute change: No evidence of an acute infarct or other acute parenchymal process. Hemorrhage: No evidence of acute intracranial hemorrhage. ECASS hemorrhagic transformation score: Not Applicable Mass Lesion / Mass Effect: There is no evidence of an intracranial mass or extraaxial fluid collection. No significant mass effect. Chronic change: None apparent. Parenchyma: There is no significant volume loss. Basal cisterns are unremarkable. Ventricles: The ventricles are within normal limits of size and configuration for age. Paranasal sinuses and skull base: Secretions in the left greater than right posterior ethmoid air cells. The paranasal sinuses are otherwise clear. Mastoid air cells are clear. The skull base is unremarkable. Soft tissues are unremarkable. IMPRESSION IMPRESSION: No evidence of an intracranial acute process. Big Machine Consultant: ADILENE Transcribe Date/Time: Jan 26 2025 2:40P Dictated by : ALEXANDER MURDOCK MD This examination was interpreted and the report reviewed and electronically signed by: ALEXANDER MURDOCK MD on Jan 26 2025 2:47PM [facility] Radiology Study observation (narrative) [facility] CT Head WO contrastOrdered B y: [facility] Provider on 01-26-2025 [facility] CBC W Auto Differential pane l (Bld)on 01-24-2025 Basophils (Bld) [#/Vol] 0.08 10*3/uL Normal <0.11 [facility] Comment on above: Order Comment: Speci men Type: BLOOD SPECIMENOrdering Facility: [facility] Address: [address] [place] [address] Performed By: #### 5 7021-8 ####[facility] LABCLIA [id number] [place] [address] [place] Basophils/100 WBC (Bld) 0.6 % Normal [facility] Comment on above: Order Comment: Speci men Type: BLOOD SPECIMENOrdering Facility: [facility] Address: [address] [place] [address] Performed By: #### 5 7021-8 ####[facility] LABCLIA [id number] [place] [address] [place] Differential cell count method Nom (Bld) Auto [facility] Comment on above: Order Comment: Speci men Type: BLOOD SPECIMENOrdering Facility: [facility] Address: [address] [place] [address] Performed By: #### 5 7021-8 ####[facility] LABCLIA [id number] [place] [address] [place] Eosinophils (Bld) [#/Vol] 0.28 10*3/uL Normal <0.46 [facility] Comment on above: Order Comment: Speci men Type: BLOOD SPECIMENOrdering Facility: [facility] Address: [address] [place] [address] Performed By: #### 5 7021-8 ####[facility] LABCLIA [id number] [place] [address] [place] Eosinophils/100 WBC (Bld) 2.2 % [facility] Comment on above: Order Comment: Speci men Type: BLOOD SPECIMENOrdering Facility: [facility] Address: [address] [place] [address] Performed By: #### 5 7021-8 ####[facility] LABCLIA [id number] [place] [address] [place] Erythrocyte distribution width (RBC) [Ratio] 13.3 % Normal 11.5-15.0 [facility] Comment on above: Order Comment: Speci men Type: BLOOD SPECIMENOrdering Facility: [facility] Address: [address] [place] [address] Performed By: #### 5 7021-8 ####[facility] LABCLIA [id number] [place] [address] [place] Hematocrit (Bld) [Volume fraction] 42.0 % Normal 36.0-46.0 [facility] Comment on above: Order Comment: Speci men Type: BLOOD SPECIMENOrdering Facility: [facility] Address: [address] [place] [address] Performed By: #### 5 7021-8 ####[facility] LABCLIA [id number] [place] [address] [place] Hemoglobin (Bld) [Mass/Vol] 14.0 g/dL Normal 11.5-15.5 [facility] Comment on above: Order Comment: Speci men Type: BLOOD SPECIMENOrdering Facility: [facility] Address: [address] [place] [address] Performed By: #### 5 7021-8 ####[facility] LABCLIA [id number] [place] [address] [place] Immature granulocytes (Bld) [#/Vol] 0.04 10*3/uL Normal <0.10 [facility] Comment on above: Order Comment: Speci men Type: BLOOD SPECIMENOrdering Facility: [facility] Address: [address] [place] [address] Performed By: #### 5 7021-8 ####[facility] LABIA [id number] [place] [address] [place] Immature granulocytes/100 WBC (Bld) 0.3 % [facility] Comment on above: Order Comment: Speci men Type: BLOOD SPECIMENOrdering Facility: [facility] Address: [address] [place] [address] Performed By: #### 5 7021-8 ####[facility] LABCLIA [id number] [place] [id number] [place] Lymphocytes (Bld) [#/Vol] 4.73 10*3/uL High 1.00-4.00 [facility] Comment on above: Order Comment: Speci men Type: BLOOD SPECIMENOrdering Facility: [facility] Address: [address] [place] [address] Performed By: #### 5 7021-8 ####[facility] LABCLIA [id number] [address] [place] Lymphocytes/100 WBC (Bld) 37.6 % [facility] Comment on above: Order Comment: Speci men Type: BLOOD SPECIMENOrdering Facility: [facility] Address: [address] [place] [address] Performed By: #### 5 7021-8 ####[facility] LABCLIA [id number] [place] [address] [place] MCH (RBC) [Entitic mass] 30.2 pg Normal 26.0-34.0 [facility] Comment on above: Order Comment: Speci men Type: BLOOD SPECIMENOrdering Facility: [facility] Address: [address] [place] [address] Performed By: #### 5 7021-8 ####[facility] LABIA [id number] [address] [place] MCHC (RBC) [Mass/Vol] 33.3 g/dL Normal 30.5-36.0 [facility] Comment on above: Order Comment: Speci men Type: BLOOD SPECIMENOrdering Facility: [facility] Address: [address] [place] [address] Performed By: #### 5 7021-8 ####[facility] LABIA [id number] [place] [address] [place] MCV (RBC) [Entitic vol] 90.7 fL Normal 80.0-100.0 [facility] Comment on above: Order Comment: Speci men Type: BLOOD SPECIMENOrdering Facility: [facility] Address: [address] [place] [address] Performed By: #### 5 7021-8 ####[facility] LABIA [id number] [place] [address] [place] Monocytes (Bld) [#/Vol] 0.70 10*3/uL Normal <0.87 [facility] Comment on above: Order Comment: Speci men Type: BLOOD SPECIMENOrdering Facility: [facility] Address: [address] [place] [address] Performed By: #### 5 7021-8 ####[facility] LABCLIA [id number] [place] [id number] [place] Monocytes/100 WBC (Bld) 5.6 % Normal [facility] Comment on above: Order Comment: Speci men Type: BLOOD SPECIMENOrdering Facility: [facility] Address: [address] [place] [address] Performed By: #### 5 7021-8 ####[facility] LABCLIA [id number] [place] [address] [place] Neutrophils (Bld) [#/Vol] 6.75 10*3/uL Normal 1.45-7.50 [facility] Comment on above: Order Comment: Speci men Type: BLOOD SPECIMENOrdering Facility: [facility] Address: [address] [place] [address] Performed By: #### 5 7021-8 ####[facility] LABCLIA [id number] [address] [place] Neutrophils/100 WBC (Bld) 53.7 % [facility] Comment on above: Order Comment: Speci men Type: BLOOD SPECIMENOrdering Facility: [facility] Address: [address] [place] [address] Performed By: #### 5 7021-8 ####[facility] LABCLIA [id number] [place] [id number] [place] Nucleated RBC (Bld) [#/Vol] 10*3/uL Normal <0.01 [facility] Comment on above: Order Comment: Speci men Type: BLOOD SPECIMENOrdering Facility: [facility] Address: [address] [place] [address] Performed By: #### 5 7021-8 ####[facility] LABCLIA [id number] [place] [address] [place] Nucleated RBC/100 WBC (Bld) [Ratio] 0.0 /100 WBC [facility] Comment on above: Order Comment: Speci men Type: BLOOD SPECIMENOrdering Facility: [facility] Address: [address] [place] [address] Performed By: #### 5 7021-8 ####[facility] LABCLIA [id number] [place] [address] [place] Platelet mean volume (Bld) [Entitic vol] 10.5 fL Normal 9.0-12.7 [facility] Comment on above: Order Comment: Speci men Type: BLOOD SPECIMENOrdering Facility: [facility] Address: [address] [place] [address] Performed By: #### 5 7021-8 ####[facility] LABCLIA [id number] [place] [address] [place] Platelets (Bld) [#/Vol] 359 10*3/uL Normal 150-400 [facility] Comment on above: Order Comment: Speci men Type: BLOOD SPECIMENOrdering Facility: [facility] Address: [address] [place] [address] Performed By: #### 5 7021-8 ####[facility] LABIA [id number] [place] [address] [place] RBC (Bld) [#/Vol] 4.63 10*6/uL Normal 3.90-5.20 [facility] Comment on above: Order Comment: Speci men Type: BLOOD SPECIMENOrdering Facility: [facility] Address: [address] [place] [address] Performed By: #### 5 7021-8 ####[facility] LABCLIA [id number] [place] [id number] [place] WBC (Bld) [#/Vol] 12.58 10*3/uL High 3.70-11.00 [facility] Comment on above: Order Comment: Speci men Type: BLOOD SPECIMENOrdering Facility: [facility] Address: [address] [place] [address] Performed By: #### 5 7021-8 ####[facility] LABCLIA [id number] [place] [address] [place] CNTHERAPYon 01-24-2025 CNTHERAPY OT/PT/Speech Visit (PTWS) MACEY CAMPBELL ([id number]) 1990 F Date Time Provider Department 01/24/25 8:00 AM NILA GOMEZ PTWS Date Time Provider Department [place] 01/24/2025 8:00 AM [id number], MARIAH PTWS Rubin Vásquez Reason for Visit: Physical Therapy [503] Primary Visit Diagnosis:Pain of left hip [M25.552] Allergies As of Date: 01/24/2025 Noted Allergy Reaction CLEOCIN (CLINDAMYCIN) 10/16/2021 2 - Rash SULFA (SULFONAMIDE ANTIBIOTICS) 12/13/2010 2 - Rash Date Reviewed: 01/12/2025 Reviewed by: Elaina Bartlett MA - Fully Assessed Prescriptions as of 01/24/2025 - rizatriptan (MAXALT ARMORING MACHINE OPERATOR) 10 mg disintegrating tablet Take 1 tablet (10 mg) by mouth as needed. May repeat in 2 hours if needed - metFORMIN ER (GLUCOPHAGE XR) 500 mg 24 hr tablet Take 1 tablet by mouth daily with breakfast. - spironolactone (ALDACTONE) 50 mg tablet Take 1 tablet by mouth two times a day. - omeprazole (PRILOSEC) 40 mg capsule Take 1 capsule by mouth once daily. - rosuvastatin (CRESTOR) 5 mg tablet Take 2 tablets by mouth daily at bedtime. - amitriptyline (ELAVIL) 10 mg tablet Take 1 tablet by mouth daily at bedtime. - estradiol (ESTRACE) 1 mg tablet [facility] US ABD RIGHT UPPER QUADRANTo n 01-19-2025 US ABD RIGHT UPPER QUADRANT * * *Final Report* * * DATE OF EXAM: Jan 19 2025 7:34AM [facility] 1032 - US ABD RIGHT UPPER QUADRANT / PROCEDURE REASON: RUQ pain * * * * Physician Interpretation * * * * EXAM TITLE: US ABD RIGHT UPPER QUADRANT HISTORY: Right upper quadrant abdominal pain. TECHNIQUE: Sonography of the right upper quadrant was performed. Images were obtained and stored in a permanent archive. MQ: URUQ_1 COMPARISON: Ultrasound abdomen on 12/15/2023 RESULT: Pancreas: Normal sonographic appearance in the visualized portions. Portions obscured: tail Liver: Echotexture: Slightly heterogeneous Echogenicity: Increase in echogenicity Surface contour: Smooth Lesions: None. MPV: Patent. Biliary: No intrahepatic biliary duct dilation. CBD: 3 mm in diameter. Gallbladder: Normal caliber -Contents: No cholelithiasis -Wall: 2 mm in thickness -Other: Negative sonographic Dale's sign. Right Kidney: Within normal limits. Ascites: None. IMPRESSION: Findings are suggestive of hepatic steatosis or diffuse liver parenchymal disease. Big Machine Consultant: ADILENE Transcribe Date/Time: Jan 20 2025 9:12A Dictated by : DEMETRICE SABA MD This examination was interpreted and the report reviewed and electronically signed by: DEMETRICE SABA MD on Jan 20 2025 9:15AM EST [id number] [facility] CNTHERAPYon 01-17-2025 CNTHERAPY OT/PT/Speech Visit (PTWS) MACEY CAMPBELL ([id number]) 1990 F Date Time Provider Department 01/17/25 5:15 PM MACEY KAISER PTWS Date Time Provider Department Center 01/17/2025 5:15 PM [id number] KAISER PTWS Rubin Vásquez Reason for Visit: Physical Therapy [503] Primary Visit Diagnosis:Pain of left hip [M25.552] Other Visit Diagnoses:Acute back pain with sciatica, left [M54.42] Pain of left hip joint [M25.552] Left hip pain [M25.552] Acute left-sided low back pain with left-sided sciatica [M54.42] Allergies As of Date: 01/17/2025 Noted Allergy Reaction CLEOCIN (CLINDAMYCIN) 10/16/2021 2 - Rash SULFA (SULFONAMIDE ANTIBIOTICS) 12/13/2010 2 - Rash Date Reviewed: 01/12/2025 Reviewed by: Elaina Bartlett MA - Fully Assessed Prescriptions as of 01/17/2025 - rizatriptan (MAXALT ARMORING MACHINE OPERATOR) 10 mg disintegrating tablet Take 1 tablet (10 mg) by mouth as needed. May repeat in 2 hours if needed - metFORMIN ER (GLUCOPHAGE XR) 500 mg 24 hr tablet Take 1 tablet by mouth daily with breakfast. - spironolactone (ALDACTONE) 50 mg tablet Take 1 tablet by mouth two times a day. - omeprazole (PRILOSEC) 40 mg capsule Take 1 capsule by mouth once daily. - rosuvastatin (CRESTOR) 5 mg tablet Take 2 tablets by mouth daily at bedtime. - amitriptyline (ELAVIL) 10 mg tablet Take 1 tablet by mouth daily at bedtime. - estradiol (ESTRACE) 1 mg tablet [employer]: Addendum Therapy (PT/OT/Speech/Resp) ID: [id number] 01/17/2025 5:28 PM Author: MACEY KAISER Signed by MACEY KAISER PT on 01/17/2025 at 5:28 PM * * * This document replaces document [id number] * * * Document text: Program_ID:[id number] Access Code: [email or web address] URL: [email or web address] Date: 01-17-2025 Prepared By: Long Warren Program Notes Exercises - Prone Gluteal Sets - 1 x daily - 7 x weekly - 4 sets - 10 reps - Prone Hip Extension - 1 x daily - 7 x weekly - 4 sets - 10 reps - Prone Hip Internal Rotation AROM - 1 x daily - 7 x weekly - 4 sets - 15 reps - Clamshell - 1 x daily - 7 x weekly - 2 sets - 15 reps - Supine Lower Trunk Rotation - 1 x daily - 7 x weekly - 2 sets - 20 reps -------- [facility] THERAPY NTon 01-17-2025 THERAPY NT HNO ID: [id number] Author: MACEY KAISER, PT Service: ? Author Type: Physical Therapist Type: Therapy (PT/OT/Speech/Resp) Filed: 01/17/2025 17:28 Note Text: Program_ID:[id number] Access Code: [email or web address] URL: [email or web address] Date: 01-17-2025 Prepared By: [place] Program Notes Exercises - Prone Gluteal Sets - 1 x daily - 7 x weekly - 4 sets - 10 reps - Prone Hip Extension - 1 x daily - 7 x weekly - 4 sets - 10 reps - Prone Hip Internal Rotation AROM - 1 x daily - 7 x weekly - 4 sets - 15 reps - Clamshell - 1 x daily - 7 x weekly - 2 sets - 15 reps - Supine Lower Trunk Rotation - 1 x daily - 7 x weekly - 2 sets - 20 reps Normal [facility] CNOVon 01-12-2025 CNOV Office Visit (FAMPWS) MACEY CAMPBELL ([id number]) 1990 F Date Time Provider Department 01/12/25 11:00 AM SYL TAI During your visit today, we recorded the following information about you: Temperature Pulse Blood pressure Weight 97.4 degrees 104/minute 110/70 80.5 kg Syl Tai, BIBI.FRANCHISE DEVELOPMENT MANAGER 01/12/2025 11:24 AM Signed This is a 34 year old female who presents today with: Patient presents with: ER F/U: [facility] 01/11/25 DX: Chest pain, facial pain, Trigeminal neuralgia, leukocytosis HISTORY OF PRESENT ILLNESS: Macey Campbell is a 34 year old female. Patient presents with: ER F/U: [facility] 01/11/25 DX: Chest pain, facial pain, Trigeminal neuralgia, leukocytosis Went to ER with RUQ and right facial pain Pain in RU abdomen and right side of face. Pain intermittent- was very sharp pressure that was severe, then into right upper abdomen/ lower right chest. Has been intermittent but not as severe. Not related to activity. Took antiacids and pepto-bismol. Continued to worsen- went toER Occurred a year ago Lasts about 5 hours. Nausea noted. Did not agree with ER in re: trigeminal neuralgia, did not fill Tegretol Pain in cheek to right lower jaw No headache No SOB No blurred or double vision Dizzy hours before No vomiting No diarrhea DM: Reports overall feeling well. Medication side effects: No. Home sugar checks: No Hypoglycemic spells: No. Watching diet: For the most part. Unexpected weight loss: No. Polyuria, polydipsia: No. Vision Changes: No. Foot lesions or numbness or pain: No. Has been sick on and off Just finished prednisone a couple days ago Smoker and on estrogen- hysterectomy PAST MEDICAL HISTORY: PAST MEDICAL HISTORY Diagnosis Date GERD without esophagitis 12/31/2021 Obesity, Class I, BMI 30-34.9 12/31/2021 PCOS (polycystic ovarian syndrome) Tobacco use disorder 12/31/2021 PAST SURGICAL HISTORY Procedure Laterality Date COLONOSCOPY SCREENING 02/08/2024 EGD W/O BRSH SPEC VARICIES INJ 02/08/2024 LAPS ABD PRTMANDOMENTUM DX W/WO SPEC BR/WA SPX 2014 Laparoscopy - for r/o endometriosis, foung to have a cyst PT ED OBSTETRICS AND GYNECOLOGY N/A 12/2019 laparoscopic hysterectomy - for endometriosis - Dr. Shelley REMOVAL OF OVARY(S) Right 10/24/2020 ovarian torsion REMOVAL OF OVARY(S) Left 12/2020 Dr Jo SALPINGECTOMY Right 12/27/2016 laparoscopic Right salpingectomy- ECTOPIC ALLERGIES Cleocin [Clindamycin] and Sulfa (Sulfonamide Antibiotics) MEDICATIONS Current Outpatient Medications Medication Sig codeine-guaiFENesin (ROBITUSSIN AC) 10-100 mg/5 mL syrup Take 10 mL by mouth three times a day as needed for cough for up to 7 days. rizatriptan (MAXALT ARMORING MACHINE OPERATOR) 10 mg disintegrating tablet Take 1 tablet (10 mg) by mouth as needed. May repeat in 2 hours if needed metFORMIN ER (GLUCOPHAGE XR) 500 mg 24 hr tablet Take 1 tablet by mouth daily with breakfast. spironolactone (ALDACTONE) 50 mg tablet Take 1 tablet by mouth two times a day. omeprazole (PRILOSEC) 40 mg capsule Take 1 capsule by mouth once daily. rosuvastatin (CRESTOR) 5 mg tablet Take 2 tablets by mouth daily at bedtime. amitriptyline (ELAVIL) 10 mg tablet Take 1 tablet by mouth daily at bedtime. estradiol (ESTRACE) 1 mg tablet levoFLOXacin (LEVAQUIN) 750 mg tablet Take 1 tablet by mouth once daily for 7 days. No current facility-administere d medications for this visit. FAMILY HISTORY Problem Relation Age of Onset Cervical Cancer Mother other (breast cyst [Other]) Mother Hyperlipidemia Father Hypertension Father other (sepsis) Father (after ruptured appe and another surgical complication where bowel was perforated during [place]). No Known Problems Sister No Known Problems Sister ADD/ADHD Brother Depression Brother ADD/ADHD Brother Stroke Maternal Grandmother No Known Problems Maternal Grandfather Hypertension Paternal Grandmother Hyperlipidemia Paternal Grandmother Skin Cancer Paternal Grandmother other (ewings sarcoma) Paternal Grandmother Hypertension Paternal Grandfather Heart Attack Paternal Grandfather Diabetes Paternal Grandfather Hyperlipidemia Paternal Grandfather COPD Paternal Grandfather ADD/ADHD Son Social History Tobacco Use Smoking status: Every Day Current packs/day: 0.50 Average packs/day: 0.5 packs/day for 15.0 years (7.5 ttl pk-yrs) Types: Cigarettes Smokeless tobacco: Never Vaping Use Vaping status: Never Used Substance Use Topics Alcohol use: Yes Alcohol/week: 1.0 standard drink of alcohol Types: 1 Glasses of Wine (5oz) per week Comment: Social Drug use: No EXAM: BP 110/70 Pulse 104 Temp 36.3 ?C (97.4 ?F) Wt 80.5 kg (177 lb 7.5 oz) LMP 08/04/2016 SpO2 98% BMI 31.44 kg/m? PHYSICAL EXAM: Physical Exam Vitals reviewed. Constitutional: Appearance: Normal appearance. HENT: (more content not included)... [facility] MACEY CAMPBELL ([id number]) 1990 F Date Time Provider Department 01/12/25 SYL TAI [facility] During your visit today, we recorded the following information about you: Syl Tai APRN.[facility] 01/12/2025 11:30 AM Signed Patient was in the emergency room on January 11, 2025 for right-sided facial pain and right sided chest pressure that began an hour to an hour and a half ago. Sharp lancing pain in the right lower face that started first. Not constant. Happens intermittently. Chest pressure right side of her chest radiating up towards her shoulder. She was nauseated but had not vomited. No pleuritic component, no leg swelling. Blood pressure 123/90, heart rate 108, respiratory rate 16, afebrile EKG showed normal sinus rhythm without ectopy or ST changes. No ST elevation myocardial infarction. Chest x-ray showed no acute process, no pneumonia, no pneumothorax. WBC 21.3, hemoglobin 14.5, hematocrit 43.1, platelet count 429 Absolute neutrophils 11.8 D-dimer less than 0.27 Sodium 138, potassium 4.0, BUN 18, creatinine 0.77, glucose 101 GFR 102 Troponin twice less than 6 Patient discharged on carbamazepine 100 mg every 12 hours Allergies As of Date: 01/12/2025 Noted Allergy Reaction CLEOCIN (CLINDAMYCIN) 10/16/2021 2 - Rash SULFA (SULFONAMIDE ANTIBIOTICS) 12/13/2010 2 - Rash Date Reviewed: 01/12/2025 Reviewed by: Elaina Bartlett MA - Fully Assessed Prescriptions as of 01/12/2025 - codeine-guaiFENesin (ROBITUSSIN AC) 10-100 mg/5 mL syrup Take 10 mL by mouth three times a day as needed for cough for up to 7 days. - rizatriptan (MAXALT ARMORING MACHINE OPERATOR) 10 mg disintegrating tablet Take 1 tablet (10 mg) by mouth as needed. May repeat in 2 hours if needed - metFORMIN ER (GLUCOPHAGE XR) 500 mg 24 hr tablet Take 1 tablet by mouth daily with breakfast. - spironolactone (ALDACTONE) 50 mg tablet Take 1 tablet by mouth two times a day. - omeprazole (PRILOSEC) 40 mg capsule Take 1 capsule by mouth once daily. - rosuvastatin (CRESTOR) 5 mg tablet Take 2 tablets by mouth daily at bedtime. - amitriptyline (ELAVIL) 10 mg tablet Take 1 tablet by mouth daily at bedtime. - estradiol (ESTRACE) 1 mg tablet Problem List As Of Date 01/12/2025 Noted Resolved Gastroenteritis [K52.9] 12/13/2010 Abdominal pain, acute, right upper quadrant [R1*12/13/2010 Tachycardia [R00.0] 12/13/2010 Menstrual irregularity [N92.6] 12/13/2010 Infertility associated with anovulation [N97.0] 09/13/2012 PCOS (polycystic ovarian syndrome) [E28.2] 09/27/2012 12/31/2021 Pain, upper back [M54.9] 09/07/2013 01/21/2022 Pelvic pain in female [R10.2] 10/31/2013 Pain in joint, shoulder region [M25.519] 01/10/2015 01/21/2022 GERD without esophagitis [K21.9] 12/31/2021 Obesity, Class I, BMI 30-34.9 [E66.811] 12/31/2021 Tobacco use disorder [F17.200] 12/31/2021 Hyperglycemia [R73.9] 01/21/2022 Mixed hyperlipidemia [E78.2] 04/16/2022 Acute back pain with sciatica, left [M54.42] 06/28/2024 Pain of left hip [M25.552] 06/28/2024 Encounter Status:Closed by SYL TAI on 01/12/25 [facility] 12 Lead EKGon 01-11-2025 12 Lead EKG [facility] Cardiovascular Services [address] [place] [id number] Lead EKG 01/11/25 1638 MR#: [id number] Acct: [id number] Name: MACEY CAMPBELL Rep #: [id number] : 1990 34 From: Marina Richter MD Attending Dr: Status: DEP ER Ordering Dr: Raleigh Escoto MD Date: 01/11/25 Location: ED Sex: F C Admitted: Test Reason : CP Blood Pressure : */* mmHG Vent. Rate : 89 BPM Atrial Rate : 89 BPM P-R Int : 130 ms QRS Dur : 86 ms QT Int : 330 ms P-R-T Axes : 42 19 25 degrees QTcB Int : 401 ms Normal sinus rhythm Possible Left atrial enlargement Borderline ECG Confirmed by ISAAC SY, JANAK ([id number]), supervising editor trailer FERN VEGA ([id number]) on 01/16/2025 11:01:06 AM Referred By: Confirmed By: JANAK RIHCTER MD 01/16/25 1101 Date Marina Richter MD CC: ANGELITO Garduno; Dr. Raleigh Escoto MD Signed Normal [facility] Absolute neutrophil countOrd ered By: Raleigh Escoto on 01-11-2025 Neutrophils (Bld) [#/Vol] 11.8 10*3/uL High 2.0-7.7 [facility] Anion gap in Serum or Plasma Ordered By: Raleigh Escoto on 01-11-2025 Anion gap [Moles/Vol] 12 mmol/L - [facility] BUN/creatinine ratioOrdered By: Raleigh Escoto on 01-11-2025 Urea nitrogen/Creatinine [Mass ratio] 22.6 mg/mg High 08-21 [facility] Basic Metabolic Profile (BMP )on 01-11-2025 BUN/CRE 22.6 RATIO High 08-21 [facility] Comment on above: Performed By: #### L 100.0100, L500.2500, L501.4021 #### [facility] [address] [place], [address] Calcium [Mass/Vol] 9.8 mg/dL Normal 7.6-11.0 [facility] Comment on above: Performed By: #### L 100.0100, L500.2500, L501.4021 #### [facility] [address] [place], [address] Chloride [Moles/Vol] 102 mmol/L Normal 98-108 [facility] Comment on above: Performed By: #### L 100.0100, L500.2500, L501.4021 #### [facility] [address] [place], [address] CO2 [Moles/Vol] 23.6 mmol/L Normal 21.0-32.0 [facility] Comment on above: Performed By: #### L 100.0100, L500.2500, L501.4021 #### [facility] [address] [place], [address] Creatinine [Mass/Vol] 0.77 mg/dL Normal 0.70-1.20 [facility] Comment on above: Performed By: #### L 100.0100, L500.2500, L501.4021 #### [facility] [address] [place], [address] ECRCL 98.85 ml/min Normal 50-250 [facility] Comment on above: Performed By: #### L 100.0100, L500.2500, L501.4021 #### [facility] [address] [place], [address] GAP 12 Normal 5-15 [facility] Comment on above: Performed By: #### L 100.0100, L500.2500, L501.4021 #### [facility] [address] [place], [address] GFR/1.73 sq M.predicted among non-blacks MDRD (S/P/Bld) [Vol rate/Area] 102 mL/min/{1.73_m2} Normal >60 [facility] Comment on above: Result Comment: mL/m in/1.73m2 CKD-EPI Creatinine Equation (2020) Performed By: #### L 100.0100, L500.2500, L501.4021 #### [facility] [address] [place], [address] Glucose [Mass/Vol] 101 mg/dL High 70-99 [facility] Comment on above: Performed By: #### L 100.0100, L500.2500, L501.4021 #### [facility] [address] [place], [address] Potassium [Moles/Vol] 4.0 mmol/L Normal 3.3-5.1 [facility] Comment on above: Performed By: #### L 100.0100, L500.2500, L501.4021 #### [facility] [address] [place], [address] Sodium [Moles/Vol] 138 mmol/L Normal 133-145 [facility] Comment on above: Performed By: #### L 100.0100, L500.2500, L501.4021 #### [facility] [address] [place], [place], [address] Urea nitrogen [Mass/Vol] 18 mg/dL Normal 4-19 [facility] Comment on above: Performed By: #### L 100.0100, L500.2500, L501.4021 #### [facility] [address] [place], [address] Basophil percentageOrdered B y: Raleigh Escoto on 01-11-2025 Basophils/100 WBC (Bld) 0.3 % 0-1 [facility] Carbon dioxide, total [Moles /volume] in Central venous bloodOrdered By: Raleigh Escoto on 01-11-2025 CO2 [Moles/Vol] 23.6 mmol/L 21.0-32.0 [facility] Chest 1 View (Portable)on Chest 1 View (Portable) [facility] Imaging Services [address] [place], [place] [address] Chest 1 View (Portable) MR#: [id number] Acct: [id number] Name: MACEY CAMPBELL Rep #: [id number] : 1990 F 34 From: Florian Estrella PCP: ANGELITO Mccrary Status: REG ER Study: Chest 1 View (Portable) Date of Exam: 01/11/25 Exam# [id number] Ordering Dr: Raleigh Escoto MD PROCEDURE: Chest radiograph REASON FOR EXAM: CHEST PAIN TECHNIQUE: Frontal view of the chest. COMPARISON: 01/20/2024 FINDINGS: Cardiomediastinal silhouette is within normal limits. Lungs are clear. No sizable pneumothorax. RAD/Chest 1 View (Portable) IMPRESSION: No acute airspace abnormality. Reading Location: [facility] CC: ACCOUNTS PAYABLE TECHNICIAN-C Radha Garduno; Dr. Raleigh Escoto MD Big Machine Consultant: Signed Normal [facility] Chloride assayOrdered By: Jorge A Escoto on 01-11-2025 Chloride [Moles/Vol] 102 mmol/L 98-108 [facility] D-Dimer Quantitative (DVT/PE )on 01-11-2025 D-DIMER QUANT < 0.27 Low 0.27-0.49 [facility] Comment on above: Result Comment: NORM AL D-Dimer level (<0.50) indicates no DVT or PE. Performed By: #### L 300.8000 ####[facility] [id number] [place], [address] D-dimer measurement for deep venous thrombosisOrdered By: Raleigh Escoto on 01-11-2025 D-Dimer Quantitative (PE/DVT) < 0.27 FEU/ug/m Low 0.27-0.49 [facility] Comment on above: NORMAL D-Dimer level (<0.50) indicates no DVT or PE. Emergency Department Summary on 01-11-2025 Emergency Department Summary [facility] Medical Records Department [address] [place] [address] Emergency Department Summary 01/11/25 MR#: [id number] Acct: [id number] Name: MACEY CAMPBELL Rep #: [id number] : 1990 34 From: Raleigh Escoto MD PCP: ANGELITO Mccrary Status:DEP ER Location: ED HPI History of Present Illness Chief Complaint: Chest Pain Narrative Narrative: 34-year-old female presents with right-sided facial pain and right-sided chest pressure that began approximately an hour to an hour and a half ago. She states that she is getting brief, sharp, lancinating pain in the right lower face that started first. It is not constant. It happens every so often and continues to do so. She then developed chest pressure, on the right side of her chest radiating up towards her shoulder. She was nauseated but had not vomited. No shortness of breath or diaphoresis. No pleuritic component, no leg swelling. Of note, she relates history that she was seen in the emergency department last year with similar symptoms regarding the chest pressure. However she had gone to urgent care first and it had lasted a few days before she was seen. She followed up with her primary care provider, and states that she had an echocardiogram and a stress test which were both normal. She does continue to smoke. She presents with 2 separate complaints that may have some correlation to each other but mainly right sided sharp pain of her face and right sided chest pressure. [facility] Medical History Acid reflux Chronic neck and back pain Severe headache Endometriosis Ectopic History of PCOS History of ovarian cyst Home Medications ???Medication ???Instructions ???Recorded ???Last Taken ???Type estradiol 1 mg tablet 1 mg PO DAILY #90 tabs 04/14/24 Un known Rx metformin 500 mg tablet 500 mg PO DAILY 04/14/24 Unknown H istory spironolactone 50 mg tablet 50 mg PO BID 04/14/24 Unknown Hist ory carbamazepine 100 mg 100 mg PO BID #20 tabs 01/11/25 Un known Rx tablet,extended release,12 hr rosuvastatin 5 mg tablet (Crestor) 10 mg PO DAILY 01/11/25 Unknown History Allergy/AdvReac Type Severity Reaction Status Date / Time Sulfa (Sulfonamide Allergy Mild Rash Verified 01/11/25 16:33 Antibiotics) clindamycin Allergy Rash Verified 01/11/25 16:33 Family History Grandfather Diabetes Heart disease Surgical History H/O unilateral oophorectomy ( 01/30/21) History of right oophorectomy History of LAVH [place] teeth extracted History of laparoscopy Social History Smoking Status: Current every day smoker tobacco type: cigarettes alcohol intake: former details: social substance use type: does not use caffeine: Yes what type of physical activity do you participate in: none seatbelt use: always do you feel safe at home: Yes 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 HEENT: No sore throat. No neck pain. Right sided sharp, intermittent, lancinating lower face pain. No rhinorrhea. Cardiovascular: Positive right-sided chest pressure/chest pain. No palpitations. No pedal edema. Respiratory: No cough, no shortness of breath. Abdominal: No abdominal pain. Positive nausea. No vomiting. Musculoskeletal: No myalgias. No arthralgias. Neurologic: No headaches. No dizziness. No lightheadedness. Psychiatric: No depression. No anxiety. EXAM Physical Exam Narrative Exam Narrative: Afebrile. Vital signs noted. Nontoxic-appearing. Cardiovascular examination reveals a regular rate and rhythm with intermittent tachycardia. Lungs clear to auscultation bilaterally. Abdomen soft and nontender without guarding or rebound. HEENT examination grossly unremarkable. No facial nerve paralysis. Neck soft and supple without stridor. Neurological examination nonfocal and nonlateralizing. Const Vital Signs: 01/11/25 16:31 01/11/25 16:59 01/11/25 17:23 Temperature 97.5 F L Temperature Source Temporal Pulse Rate 108 H 86 Respiratory Rate 16 21 H Blood Pressure 123/90 H Blood Pressure Mean 101 Pulse Ox 98 99 Oxygen Delivery Method Room Air Room Air 01/11/25 17:30 01/11/25 17:45 01/11/25 18:00 Temperature Temperature Source Pulse Rate 80 75 Respiratory Rate 22 H 14 14 Blood Pressure 114/88 H 118/79 108/79 Blood Pressure Mean 97 92 89 Pulse Ox 98 98 98 Oxygen Delivery Method Room Air Room Air Room Air 01/11/25 18:15 01/11/25 18:30 01/11/25 18:45 Temperature Temperature Source Pulse Rate 75 77 Respiratory Rate 18 12 B (more content not included)... Normal [facility] Eosinophil percentageOrdered By: Raleigh Escoto on 01-11-2025 Eosinophils/100 WBC (Bld) 1.8 % 0-5 [facility] Erythrocyte distribution wid th ratioOrdered By: Raleigh Escoto on 01-11-2025 Erythrocyte distribution width (RBC) [Ratio] 13.4 % 11.6-14.6 [facility] Erythrocyte distribution wid th standard deviationOrdered By: Raleigh Escoto on 01-11-2025 Erythrocyte distribution width (RBC) [Entitic vol] 44.1 fL High 35.1-43.9 [facility] Estimation of creatinine raheel aranceOrdered By: Raleigh Escoto on 01-11-2025 Estimated Creatinine Clearance Calc 98.85 ml/min 50-250 [facility] GFR/1.73 sq M.predicted troy g non-blacks MDRD (S/P/Bld) [Vol rate/Area]Ordered By: Raleigh Escoto on 01-11-2025 Estimated GFR (MDRD) Non-Af Amer 102 >60 [facility] Comment on above: mL/min/1.73m2 CKD-EP I Creatinine Equation (2020) Hematocrit Auto (Bld) [Volum e fraction]Ordered By: Raleigh Escoto on 01-11-2025 Hematocrit (Bld) [Volume fraction] 43.1 % 37-47 [facility] Hemoglobin measurementOrdere d By: Raleigh Escoto on 01-11-2025 Hemoglobin (Bld) [Mass/Vol] 14.5 g/dL 12.0-15.0 [facility] Immature granulocytes/100 WB C Auto (Bld)Ordered By: Raleigh Escoto on 01-11-2025 Immature granulocytes/100 WBC (Bld) 2.200 % High 0.0-0.9 [facility] Comment on above: IG% - Immature Granu locytes (promyelocytes, myelocytes and metamyelocytes) > 1% indicates that a LEFT SHIFT is Present. L499.0042on 01-11-2025 Trop T High Sen < 6 Normal <=14 [facility] Comment on above: Result Comment: Hemo lysis present, Results??could be affected. ?? Performed By: #### L 499.0042 ####[facility] [id number] [place], [address] L499.0043on 01-11-2025 Trop T High Sen Normal <=14 [facility] Comment on above: Result Comment: Canc elled via OM: Order cancelled - Patient discharged Performed By: #### L 499.0043 ####[facility] [address] [place], [address] L501.4021on 01-11-2025 Trop T High Sen < 6 Normal <=14 [facility] Comment on above: Performed By: #### L 100.0100, L500.2500, L501.4021 #### [facility] [address] [place], [address] Lymphocytes Auto (Unsp spec) [#/Vol]Ordered By: Raleigh Escoto on 01-11-2025 Lymphocytes (Bld) [#/Vol] 7.42 10*3/uL High 0.83-4.51 [facility] Lymphocytes/100 WBC Auto (Un sp spec)Ordered By: Raleigh Escoto on 01-11-2025 Lymphocytes/100 WBC (Bld) 34.9 % 19-41 [facility] MCV (mean corpuscular volume ) determinationOrdered By: Raleigh Escoto on 01-11-2025 MCV (RBC) [Entitic vol] 90.0 fL 81-99 [facility] Mean corpuscular hemoglobin (MCH) determinationOrdered By: Raleigh Escoto on 01-11-2025 MCH (RBC) [Entitic mass] 30.3 pg 27.0-32.0 [facility] Mean corpuscular hemoglobin concentration (MCHC) determinationOrdered By: Raleigh Escoto on 01-11-2025 MCHC (RBC) [Mass/Vol] 33.6 g/dL 32-36 [facility] Mean platelet volume determi nationOrdered By: Raleigh Escoto on 01-11-2025 Platelet mean volume (Bld) [Entitic vol] 10.0 fL 6.2-12.0 [facility] Monocyte percentageOrdered B y: Raleigh Escoto on 01-11-2025 Monocytes/100 WBC (Bld) 5.3 % 0-10 [facility] Neutrophil percentageOrdered By: Raleigh Escoto on 01-11-2025 Neutrophils/100 WBC (Bld) 55.5 % 47-70 [facility] No Panel InformationOrdered By: Raleigh Escoto on 01-11-2025 Troponin T High Sensitivity < 6 ng/L <14 [facility] Nucleated red blood cell per centageOrdered By: Raleigh Escoto on 01-11-2025 Nucleated RBC/100 WBC (Bld) [Ratio] 0 % 0-5 [facility] Pathologist review Fer (Unsp spec) [Interp]Ordered By: Raleigh Escoto on 01-11-2025 Differential Pathologist's Review May foll [facility] Platelet countOrdered By: Jorge A Escoto on 01-11-2025 Platelets (Bld) [#/Vol] 429 10*3/uL 150-450 [facility] Platelets LM Ql (Bld)Ordered By: Raleigh Escoto on 01-11-2025 Platelet Estimate A ADEQ [facility] Potassium (Unsp spec) [Mass/ Vol]Ordered By: Raleigh Escoto on 01-11-2025 Potassium [Moles/Vol] 4.0 mmol/L 3.3-5.1 [facility] RBC Auto (Bld) [#/Vol]Ordere d By: Raleigh Escoto on 01-11-2025 RBC (Bld) [#/Vol] 4.79 10*6/uL 4.2-5.4 [facility] Reactive lymphocyte countOrd ered By: Raleigh Escoto on 01-11-2025 Reactive Lymphocytes 3+ [facility] Serum creatinine measurement (mass/volume)Ordered By: Raleigh Escoto on 01-11-2025 Creatinine [Mass/Vol] 0.77 mg/dL 0.70-1.20 [facility] Serum glucose measurement (m ass/volume)Ordered By: Raleigh Escoto on 01-11-2025 Glucose [Mass/Vol] 101 mg/dL High 70-99 [facility] Serum or plasma calcium cirilo urement (mass/volume)Ordered By: Raleigh Escoto on 01-11-2025 Calcium [Mass/Vol] 9.8 mg/dL 7.6-11.0 [facility] Serum or plasma urea nitroge n measurement (mass/volume)Ordered By: Raleigh Escoto on 01-11-2025 Urea nitrogen [Mass/Vol] 18 mg/dL 4-19 [facility] Sodium levelOrdered By: Raleigh Escoto on 01-11-2025 Sodium [Moles/Vol] 138 mmol/L 133-145 [facility] Troponin T.cardiac High sens itivity method [Mass/Vol]Ordered By: Raleigh Escoto on 01-11-2025 Troponin T High Sensitivity 2 Hour < 6 ng/L <14 [facility] Comment on above: Hemolysis present, R esults could be affected. White blood cell (WBC) count Ordered By: Raleigh Escoto on 01-11-2025 WBC (Bld) [#/Vol] 21.3 10*3/uL High 4.4-11.0 [facility] [id number] 01-09-2025 [id number] O ID: [id number] Author: MACEY KASIER PT Service: ? Author Type: Physical Therapist Type: [id number] Filed: 01/09/2025 11:34 Note Text: [facility] Physical Therapy Plan of Care Certification Patient Name: Macey Campbell : 1990 [facility] #: [id number] Date: 01/09/2025 To: Maggy Hayes PA-C From Therapist: Macey Kaiser PT RE: Patient Certification/ Recertification Your review, approval and electronic signature are required in order to comply with Payor: BRENNEN / Plan: [employer] PPO TPA / Product Type: PPO / regulations. The identified Physical Therapy PLAN OF CARE for the patient is as follows: M25.552 Pain of left hip (primary encounter diagnosis) PLAN OF CARE: Assessment: Macey Campbell presents with diagnosis of pain of left hip that interferes with squatting, stair negotiation, walking in the community, walking in the house, walking, standing, rising from a chair, sitting (worse with ascending steps) . The patient presents with impairments in ADL's, balance, flexibility, gait, independence in exercise, joint mobility, overall function, patient reported outcome measures, posture, range of motion, strength, and symptom management. PROMIS? (Patient-Reported Outcomes Measurement Information System) scores were reviewed and identified as a rehabilitation concern. Prognosis for therapy is Fair due to: poor past response to therapy intervention . The patient will benefit from skilled therapy services to meet the goals established for this plan of care as noted below. Classification Pain Mechanism Classification: Nociceptive Low Back Pain Classification: Symptom Modulation Goals for Episode of Care: established 01/09/25 [place] in home exercise program. Patient will decrease pain to 1-2/10 with functional activities to allow patient to improve ambulation, transfers, and standing tolerance for ADLs. Patient will demonstrate increase in L hip flexion, abd, ER, and IR strength to 4/5 during manual muscle testing in order to improve function for prior functional tasks. Perform walking community distances with decreased report of symptoms/pain in 6 weeks. Normal gait. Reciprocal stair negotiation. Patient Goals: reduce L hip pain, walk up hill, 30 min of ambulation in the community without increased symptoms Time Frame for Goals and Treatment : 02/20/25 Planned Interventions, Frequency, and Duration: Current Frequency: 1x/week Duration: 6 weeks Total Number of Visits Planned: 6 Planned Treatment Interventions: Gait Training (25921), Self-mcfp management (10423), Therapeutic activities (22896), Manual therapy (62239), Neuromuscular re-education (84109), Therapeutic exercise (13277) PLAN FOR NEXT VISIT: assess symptom response to isometrics and resposne to injection 2 weeks post procedure Patient demonstrates good understanding of plan of care and treatment. The above goals and plan of care were discussed and agreed upon by patient/family. For further details regarding this patient refer to the Physical Therapy electronically documented visit dated 01/09/2025. Provider Attestation I have reviewed the treatment plan for Macey Campbell, CC# [id number] for the period of 01/09/25 -- 02/20/25, established on 01/09/2025. Signature certifies the need for therapy services. [facility] CNTHERAPYon 01-09-2025 CNTHERAPY OT/PT/Speech Visit (PTWS) MACEY CAMPBELL ([id number]) 1990 F Date Time Provider Department 01/09/25 11:00 AM MACEY KAISER PTMARCO Date Time Provider Department Center 01/09/2025 11:00 AM [id number] KAISER PTMARCO Vásquez Reason for Visit: PT Eval [747] Primary Visit Diagnosis:Pain of left hip [M25.552] Allergies As of Date: 01/09/2025 Noted Allergy Reaction CLEOCIN (CLINDAMYCIN) 10/16/2021 2 - Rash SULFA (SULFONAMIDE ANTIBIOTICS) 12/13/2010 2 - Rash Date Reviewed: 01/06/2025 Reviewed by: Jocelyn Gutierrez LPN - Fully Assessed Prescriptions as of 01/09/2025 - levoFLOXacin (LEVAQUIN) 750 mg tablet Take 1 tablet by mouth once daily for 7 days. - predniSONE (DELTASONE) 20 mg tablet Take 2 tablets by mouth once daily for 5 days. - codeine-guaiFENesin (ROBITUSSIN AC) 10-100 mg/5 mL syrup Take 10 mL by mouth three times a day as needed for cough for up to 7 days. - rizatriptan (MAXALT ARMORING MACHINE OPERATOR) 10 mg disintegrating tablet Take 1 tablet (10 mg) by mouth as needed. May repeat in 2 hours if needed - metFORMIN ER (GLUCOPHAGE XR) 500 mg 24 hr tablet Take 1 tablet by mouth daily with breakfast. - spironolactone (ALDACTONE) 50 mg tablet Take 1 tablet by mouth two times a day. - omeprazole (PRILOSEC) 40 mg capsule Take 1 capsule by mouth once daily. - rosuvastatin (CRESTOR) 5 mg tablet Take 2 tablets by mouth daily at bedtime. - amitriptyline (ELAVIL) 10 mg tablet Take 1 tablet by mouth daily at bedtime. - estradiol (ESTRACE) 1 mg tablet [place]: Therapy (PT/OT/Speech/Resp) ID: [id number] 01/09/2025 11:22 AM Author: MACEY KAISER Signed by MACEY KAISER PT on 01/09/2025 at 11:22 AM Document text: Program_ID:[id number] Access Code: [email or web address] URL: [email or web address] Date: 01-09-2025 Prepared By: Long [place] Program Notes Exercises - Supine Hip Adduction Isometric with Ball - 1 x daily - 7 x weekly - 3 sets - 10 reps - Supine Pelvic Floor Contraction with Hip Internal External Rotation - 1 x daily - 7 x weekly - 3 sets - 10 reps - cc Hip Isometric External Rotation Prone - 1 x daily - 7 x weekly - 3 sets - 10 reps - cc Hip Isometric Internal Rotation Prone - 1 x daily - 7 x weekly - 3 sets - 10 reps - Supine Hip Abduction with Resistance at Ankles - 1 x daily - 7 x weekly - 2 sets - 5 reps -------- [facility] THERAPY NTon 01-09-2025 THERAPY NT HNO ID: [id number] Author: MACEY KAISER PT Service: ? Author Type: Physical Therapist Type: Therapy (PT/OT/Speech/Resp) Filed: 01/09/2025 11:22 Note Text: Program_ID:[id number] Access Code: [email or web address] URL: [email or web address] Date: 01-09-2025 Prepared By: Long Warren Program Notes Exercises - Supine Hip Adduction Isometric with Ball - 1 x daily - 7 x weekly - 3 sets - 10 reps - Supine Pelvic Floor Contraction with Hip Internal External Rotation - 1 x daily - 7 x weekly - 3 sets - 10 reps - cc Hip Isometric External Rotation Prone - 1 x daily - 7 x weekly - 3 sets - 10 reps - cc Hip Isometric Internal Rotation Prone - 1 x daily - 7 x weekly - 3 sets - 10 reps - Supine Hip Abduction with Resistance at Ankles - 1 x daily - 7 x weekly - 2 sets - 5 reps [facility] CNOVon 01-06-2025 CNOV Office Visit (ROSIBELWS) MACEY CAMPBELL ([id number]) 1990 F Date Time Provider Department 01/06/25 7:40 AM ARA CRAWFORD During your visit today, we recorded the following information about you: Temperature Pulse Respiration Blood pressure 97.8 degrees 103/minute 16/minute 124/80 Weight 79.8 kg Ara Crawford APRN.FRANCHISE DEVELOPMENT MANAGER 01/06/2025 8:11 AM Signed This is a 34 year old female who presents today with: Patient presents with: Acute Visit: Lingering cough HISTORY OF PRESENT ILLNESS: Macey Campbell is a 34 year old female. Patient presents with: Acute Visit: Lingering cough Patient of Dr. Ballard here in the office for on going cough. Symptoms started in December, diagnosed with URI and seen again diagnosed with bronchitis. Chest x-ray was normal in November has been treated with doxycycline and Augmentin as well as prednisone taper. Refers that symptoms improve for about 1 week after antibiotic treatment but then returns. No wheezing or SOB. Cough is productive at times, post nasal drip. Refers that she coughs all night. Taking Nyquil and dayquil. Has tried Netipot for sinus congestion. Last weekend fever 102.4, no fevers since. Smoking 1/2 PPD PAST MEDICAL HISTORY: PAST MEDICAL HISTORY Diagnosis Date GERD without esophagitis 12/31/2021 Obesity, Class I, BMI 30-34.9 12/31/2021 PCOS (polycystic ovarian syndrome) Tobacco use disorder 12/31/2021 PAST SURGICAL HISTORY Procedure Laterality Date COLONOSCOPY SCREENING 02/08/2024 EGD W/O BRSH SPEC VARICIES INJ 02/08/2024 LAPS ABD PRTMANDOMENTUM DX W/WO SPEC BR/WA SPX 2014 Laparoscopy - for r/o endometriosis, foung to have a cyst PT ED OBSTETRICS AND GYNECOLOGY N/A 12/2019 laparoscopic hysterectomy - for endometriosis - Dr. Shelley REMOVAL OF OVARY(S) Right 10/24/2020 ovarian torsion REMOVAL OF OVARY(S) Left 12/2020 Dr Jo SALPINGECTOMY Right 12/27/2016 laparoscopic Right salpingectomy- ECTOPIC ALLERGIES Cleocin [Clindamycin] and Sulfa (Sulfonamide Antibiotics) MEDICATIONS Current Outpatient Medications Medication Sig rizatriptan (MAXALT ARMORING MACHINE OPERATOR) 10 mg disintegrating tablet Take 1 tablet (10 mg) by mouth as needed. May repeat in 2 hours if needed metFORMIN ER (GLUCOPHAGE XR) 500 mg 24 hr tablet Take 1 tablet by mouth daily with breakfast. spironolactone (ALDACTONE) 50 mg tablet Take 1 tablet by mouth two times a day. omeprazole (PRILOSEC) 40 mg capsule Take 1 capsule by mouth once daily. rosuvastatin (CRESTOR) 5 mg tablet Take 2 tablets by mouth daily at bedtime. amitriptyline (ELAVIL) 10 mg tablet Take 1 tablet by mouth daily at bedtime. estradiol (ESTRACE) 1 mg tablet No current facility-administere d medications for this visit. FAMILY HISTORY Problem Relation Age of Onset Cervical Cancer Mother other (breast cyst [Other]) Mother Hyperlipidemia Father Hypertension Father other (sepsis) Father (after ruptured appe and another surgical complication where bowel was perforated during [place]). No Known Problems Sister No Known Problems Sister ADD/ADHD Brother Depression Brother ADD/ADHD Brother Stroke Maternal Grandmother No Known Problems Maternal Grandfather Hypertension Paternal Grandmother Hyperlipidemia Paternal Grandmother Skin Cancer Paternal Grandmother other (ewings sarcoma) Paternal Grandmother Hypertension Paternal Grandfather Heart Attack Paternal Grandfather Diabetes Paternal Grandfather Hyperlipidemia Paternal Grandfather COPD Paternal Grandfather ADD/ADHD Son Social History Tobacco Use Smoking status: Every Day Current packs/day: 0.50 Average packs/day: 0.5 packs/day for 15.0 years (7.5 ttl pk-yrs) Types: Cigarettes Smokeless tobacco: Never Vaping Use Vaping status: Never Used Substance Use Topics Alcohol use: Yes Alcohol/week: 1.0 standard drink of alcohol Types: 1 Glasses of Wine (5oz) per week Comment: Social Drug use: No REVIEW OF SYSTEMS GENERAL: + fever HEENT: + Sinus congestion NECK: Negative for lumps, goiter, pain and significant neck swelling RESPIRATORY: + Cough CARDIOVASCULAR: Negative for chest pain, leg swelling, orthopnea, or palpitations GI: No nausea, vomiting, or diarrhea/constipatio n. No hematochezia/melena. No heartburn or reflux symptoms. : No history of dysuria, frequency or incontinence MUSCULOSKELETAL: Negative for joint pain or swelling. SKIN: Negative for lesions, rash, and itching ENDOCRINE: Negative for cold or heat intolerance, polyuria, polydipsia and goiter NEURO: No history of headaches, syncope, paralysis, seizures or tremors MOOD: Negative for depression, anxiety, or suicidal ideation. EXAM: BP 124/80 Pulse 103 Temp 36.6 ?C (97.8 ?F) (Left Tympanic) Resp 16 Wt 79.8 kg (176 lb) LMP 08/04/2016 SpO2 97% BMI 31.18 kg/m? PHYSICAL EXAM: General Appearance: Well appearing, alert, in no ac (more content not included)... [facility] CNOVon 01-04-2025 CNOV Office Visit ([facility]) MACEY CAMPBELL ([id number]) 1990 F Date Time Provider Department 01/04/25 1:30 PM NAY REINOSO [facility] During your visit today, we recorded the following information about you: Nay Reinoso DO 01/04/2025 1:02 PM Signed Post injection Instructions: You received a steroid injection today. Please keep any physical therapy appointments and schedule a follow-up appointment as recommended. Benefits: Injections help with PAIN and allow you to better participate in daily activities and exercise/therapy. Injections do NOT cause healing of arthritis or injuries. As pain is better controlled, this will reduce the need to use anti-inflammatories by mouth and/or if you are not able to take an anti-inflammatory due to other reasons (you have been advised to avoid or they are contra-indicated). Activity recommendations: For the first 24 hours after the injection, keep the area clean and dry. It is okay to shower but no soaking in a tub or swimming. Schedule the injection when you have 1-2 days to rest afterwards. Ideally, no strenuous or vigorous activities (such as running or heavy lifting) for 3 days after the injection. Therefore, plan ahead to have any exercise or errands completed before the injection so you can relax afterwards. After the first week, you can gradually resume normal activities. If you do experience a significant decrease in pain, be careful not to do too much too soon. The chapa is gradual resumption of activities. What to expect: The injection contains lidocaine (which numbs the joint) and a steroid (which decreases inflammation). You may have pain relief within hours (sometimes immediate) due to the lidocaine. The steroid can take a few days, up to a few weeks, to reach the full effect, so please be patient! The numbing medicine you received will wear off in 4-6 hours. It is also possible to have a slight increase in symptoms over the first few days. In order to prevent that, please take some anti-inflammatory (prescription strength, or Ibuprofen, or naprosyn) for the next three to five days. You may also need to ice the injected area at LEAST three times a day as instructed below. How long will an injection last? The length of response to an injection is variable. Patients have experienced relief anywhere from a few weeks to a few years. The injection will decrease the inflammation and the pain will return if/when the inflammation returns. Side effects: - There is a risk of bleeding and infection with any injection (including vaccinations). Precautions are taken to reduce this risk greatly. - If you have diabetes, the steroid component may raise your blood sugars significantly. Your doctor may postpone or recommend other therapies based on your blood sugar control. - Allergic reactions to the lidocaine or steroid can occur. If you have a known allergy to lidocaine or any steroid, please notify your doctor. PLEASE CALL YOUR DOCTOR OR PROCEED TO EMERGENCY ROOM IF: - You develop fevers/chills, redness or warmth at area of injection - You develop rash, difficulty breathing - You have significant worsening of your pain that is not controlled with the above suggestions ICING INSTRUCTIONS For an ice bag, apply for 15-20 minutes at least three times a day, more if needed. Ice in a Ziplog/plastic bag or even a bag of frozen peas/corn will work (and is reusable). You can also use Alie dish liquid frozen in a ziploc bag. Use a large bottle, dump it in a gallon ziploc bag, zip that and place it inside another ziploc bag. Place in freezer and let it harden to a Play-jessica like consistency. Mold it around the part to be iced and use an sadaf wrap or towel to keep in place. Refreeze and use when needed. For ice massage, fill an empty paper or styrofoam cup nearly full with water, place them in the freezer and let them freeze completely. Tear the top off of the cup leaving the bottom part of the cup intact so you can hold onto it. Rub the ice over the affected area for about [address] to do this is in the shower or the bath (with affected area out of the water) for the contrast of hot water, but it can be done outside of the shower. MEDICATION INSTRUCTIONS Aleve (Naproxen sodium), 1-2 pills, up to twice a day, with food, for 5-10 days, then as needed thereafter. OR Ibuprofen (Motrin), 3-4 pills, up to three times a day, with food, for 5-10 days, then as needed thereafter. Do not take these medications if you have been instructed not to in the past or if you are taking another anti-inflammatory (such as Celebrex, Naprosyn, Relafen, Voltaren, Mobic, Anaprox, etc). Do not take if you have a history of bleeding ulcers in your stomach. If this should start to upset your stomach, stop taking it. Should you have any questions, y (more content not included)... [facility] Large Joint Arthro/Inj: L hi p jointon 01-04-2025 Nay Reinoso, DO 01/04/2025 1:22 PM Large Joint Arthro/Inj: L hip joint 01/04/2025 1:22 PM The procedure site was prepped in the usual sterile fashion. Site: L hip joint Details:Musculoskele lorrie ultrasound was utilized to successfully localize placement of the injection needle at the appropriate site. Ultrasound images demonstrating local vasculature and demonstrating injection of solution were saved. Medications: 40 mg triamcinolone acetonide 40 mg/mL Anesthetics: 3 mL ROPivacaine (PF) 5 mg/mL (0.5 %) Outcome: Tolerated well, no immediate complications Post-injection instructions were reviewed with the patient and the patient voiced understanding of these instructions. Informed Consent Consent Obtained: Verbal [place] Protocol A moment to CARE was completed. SIGN IN Personnel directly involved with the procedure wore the appropriate PPE. Patient/Surrogate Stated/Verified: Patient name, Date of , Relevant allergies and Intended procedure TIME OUT Relevant labs, photos, and/or imaging studies have been reviewed. Correct side/site marked and visible. Medications required for procedure verified. SIGN OUT The post-procedure POC has been communicated to the patient or surrogate. [facility] US HIP-INJECTION LT (POC) OR I USE ONLYon 01-04-2025 [facility] CBC W Auto Differential pane l (Bld)on 12-27-2024 Basophils (Bld) [#/Vol] 0.08 10*3/uL Normal <0.11 [facility] Comment on above: Order Comment: Speci men Type: BLOOD SPECIMEN Ordering Facility: [facility] Address: [address] [place] [address] Performed By: #### 5 7021-8 #### [facility] CLIA [id number] [address] [place] [address] [place] Basophils/100 WBC (Bld) 0.6 % Normal [facility] Comment on above: Order Comment: Speci men Type: BLOOD SPECIMEN Ordering Facility: [facility] Address: [address] [place] [address] Performed By: #### 5 7021-8 #### [facility] CLIA [id number] [address] [place] [address] [place] Differential cell count method Nom (Bld) Auto [facility] Comment on above: Order Comment: Speci men Type: BLOOD SPECIMEN Ordering Facility: [facility] Address: [address] [place] [address] Performed By: #### 5 7021-8 #### [facility] CLIA [id number] [address] [place] [address] [place] Eosinophils (Bld) [#/Vol] 0.50 10*3/uL High <0.46 [facility] Comment on above: Order Comment: Speci men Type: BLOOD SPECIMEN Ordering Facility: [facility] Address: [address] [place] [address] Performed By: #### 5 7021-8 #### [facility] CLIA [id number] [address] [place] [address] [place] Eosinophils/100 WBC (Bld) 3.8 % [facility] Comment on above: Order Comment: Speci men Type: BLOOD SPECIMEN Ordering Facility: [facility] Address: [address] [place] [address] Performed By: #### 5 7021-8 #### [facility] CLIA [id number] [address] [place] [address] [place] Erythrocyte distribution width (RBC) [Ratio] 13.2 % Normal 11.5-15.0 [facility] Comment on above: Order Comment: Speci men Type: BLOOD SPECIMEN Ordering Facility: [facility] Address: [address] [place] [address] Performed By: #### 5 7021-8 #### [facility] CLIA [id number] [address] [place] [address] [place] Hematocrit (Bld) [Volume fraction] 40.3 % Normal 36.0-46.0 [facility] Comment on above: Order Comment: Speci men Type: BLOOD SPECIMEN Ordering Facility: [facility] Address: [address] [place] [address] Performed By: #### 5 7021-8 #### [facility] [id number] [address] [place] [address] [place] Hemoglobin (Bld) [Mass/Vol] 13.6 g/dL Normal 11.5-15.5 [facility] Comment on above: Order Comment: Speci men Type: BLOOD SPECIMEN Ordering Facility: [facility] Address: [address] [place] [address] Performed By: #### 5 7021-8 #### [facility] [id number] [address] [place] [address] [place] Immature granulocytes (Bld) [#/Vol] 0.05 10*3/uL Normal <0.10 [facility] Comment on above: Order Comment: Speci men Type: BLOOD SPECIMEN Ordering Facility: [facility] Address: [address] [place] [address] Performed By: #### 5 7021-8 #### [facility] CLIA [id number] [address] [place] [address] [facility] Immature granulocytes/100 WBC (Bld) 0.4 % [facility] Comment on above: Order Comment: Speci men Type: BLOOD SPECIMEN Ordering Facility: [facility] Address: [facility] [place] [address] Performed By: #### 5 7021-8 #### [facility] CLIA [id number] [address] [place] [address] [place] Lymphocytes (Bld) [#/Vol] 3.17 10*3/uL Normal 1.00-4.00 [facility] Comment on above: Order Comment: Speci men Type: BLOOD SPECIMEN Ordering Facility: [facility] Address: [address] [place] [address] Performed By: #### 5 7021-8 #### [facility] [id number] [address] [place] [address] [place] Lymphocytes/100 WBC (Bld) 23.9 % [facility] Comment on above: Order Comment: Speci men Type: BLOOD SPECIMEN Ordering Facility: [facility] Address: [address] [place] [address] Performed By: #### 5 7021-8 #### [facility] CLIA [id number] [address] [place] [address] [place] MCH (RBC) [Entitic mass] 30.6 pg Normal 26.0-34.0 [facility] Comment on above: Order Comment: Speci men Type: BLOOD SPECIMEN Ordering Facility: [facility] Address: [address] [place] [address] Performed By: #### 5 7021-8 #### [facility] CLIA [id number] [address] [place] [address] [place] MCHC (RBC) [Mass/Vol] 33.7 g/dL Normal 30.5-36.0 [facility] Comment on above: Order Comment: Speci men Type: BLOOD SPECIMEN Ordering Facility: [facility] Address: [address] [place] [address] Performed By: #### 5 7021-8 #### [facility] CLIA [id number] [address] [place], [place] [address] [place] MCV (RBC) [Entitic vol] 90.6 fL Normal 80.0-100.0 [facility] Comment on above: Order Comment: Speci men Type: BLOOD SPECIMEN Ordering Facility: [facility] Address: [address] [place] [address] Performed By: #### 5 7021-8 #### [facility] CLIA [id number] [address] [place] [address] [place] Monocytes (Bld) [#/Vol] 0.69 10*3/uL Normal <0.87 [facility] Comment on above: Order Comment: Speci men Type: BLOOD SPECIMEN Ordering Facility: [facility] Address: [address] [place] [address] Performed By: #### 5 7021-8 #### [facility] CLIA [id number] [address] [place] [address] [place] Monocytes/100 WBC (Bld) 5.2 % Normal [facility] Comment on above: Order Comment: Speci men Type: BLOOD SPECIMEN Ordering Facility: [facility] Address: [address] [place] [address] Performed By: #### 5 7021-8 #### [facility] CLIA [id number] [address] [place] [address] [place] Neutrophils (Bld) [#/Vol] 8.76 10*3/uL High 1.45-7.50 [facility] Comment on above: Order Comment: Speci men Type: BLOOD SPECIMEN Ordering Facility: [facility] Address: [address] [place] [address] Performed By: #### 5 7021-8 #### [facility] CLIA [id number] [address] [place] [address] [place] Neutrophils/100 WBC (Bld) 66.1 % Normal [facility] Comment on above: Order Comment: Speci men Type: BLOOD SPECIMEN Ordering Facility: [facility] Address: [address] [place], [place] [address] Performed By: #### 5 7021-8 #### [facility] CLIA [id number] [address] [place] [address] [place] Nucleated RBC (Bld) [#/Vol] 10*3/uL Normal <0.01 [facility] Comment on above: Order Comment: Speci men Type: BLOOD SPECIMEN Ordering Facility: [facility] Address: [address] [place], [place] [address] Performed By: #### 5 7021-8 #### [facility] [id number] [address] [place] [address] [place] Nucleated RBC/100 WBC (Bld) [Ratio] 0.0 /100 WBC Normal [facility] Comment on above: Order Comment: Speci men Type: BLOOD SPECIMEN Ordering Facility: [facility] Address: [address] [place] [address] Performed By: #### 5 7021-8 #### [facility] CLIA [id number] [address] [place] [address] [place] Platelet mean volume (Bld) [Entitic vol] 10.7 fL Normal 9.0-12.7 [facility] Comment on above: Order Comment: Speci men Type: BLOOD SPECIMEN Ordering Facility: [facility] Address: [address] [place] [address] Performed By: #### 5 7021-8 #### [facility] CLIA [id number] 1 [place] [address] [place] Platelets (Bld) [#/Vol] 358 10*3/uL Normal 150-400 [facility] Comment on above: Order Comment: Speci men Type: BLOOD SPECIMEN Ordering Facility: [facility] Address: [address] [place] [address] Performed By: #### 5 7021-8 #### [facility] CLIA [id number] [address] [place] [address] [place] RBC (Bld) [#/Vol] 4.45 10*6/uL Normal 3.90-5.20 [facility] Comment on above: Order Comment: Speci men Type: BLOOD SPECIMEN Ordering Facility: [facility] Address: [address] [place] [address] Performed By: #### 5 7021-8 #### [facility] CLIA [id number] [address] [place] [address] [place] WBC (Bld) [#/Vol] 13.25 10*3/uL High 3.70-11.00 [facility] Comment on above: Order Comment: Speci men Type: BLOOD SPECIMEN Ordering Facility: [facility] Address: [address] [place] [address] Performed By: #### 5 7021-8 #### [facility] CLIA [id number] [address] [place] [address] [place] Comprehensive metabolic 2000 panelon 12-27-2024 Albumin [Mass/Vol] 4.3 g/dL Normal 3.9-4.9 [facility] Comment on above: Order Comment: Speci men Type: BLOOD SPECIMEN Ordering Facility: [facility] Address: [address] [place] [address] Performed By: #### 2 4331-1 #### [facility] CLIA [id number] [address] [place] [facility] CLIA [id number] [address] [place] [address] [place] #### 55541-2, 67516-3 #### [facility] CLIA [id number] [address] [place] [address] [place] ALP [Catalytic activity/Vol] 75 U/L Normal 34-123 [facility] Comment on above: Order Comment: Speci men Type: BLOOD SPECIMEN Ordering Facility: [facility] Address: [address] [place] [address] Performed By: #### 2 4331-1 #### [facility] CLIA [id number] 1 [place] [address] [place] [facility] CLIA [id number] [address] [place] [address] [place] #### 09735-8, 34695-6 #### [facility] CLIA [id number] [address] [place] [address] [place] ALT [Catalytic activity/Vol] 20 U/L Normal 7-38 [facility] Comment on above: Order Comment: Speci men Type: BLOOD SPECIMEN Ordering Facility: [facility] Address: [address] [place] [address] Performed By: #### 2 4331-1 #### [facility] CLIA [id number] 1 [place] [address] [place] [facility] CLIA [id number] [address] [place] [address] [place] #### 85467-1, 42390-9 #### [facility] CLIA [id number] [address] [place] [address] [place] Anion gap [Moles/Vol] 15 mmol/L Normal 8-15 [facility] Comment on above: Order Comment: Speci men Type: BLOOD SPECIMEN Ordering Facility: [facility] Address: [address] [place] [address] Performed By: #### 2 4331-1 #### [facility] CLIA [id number] 1 [place] [address] [place] [facility] CLIA [id number] [address] [place] [address] [place] #### 01034-2, 38705-0 #### [facility] CLIA [id number] [address] [place] [address] [place] AST [Catalytic activity/Vol] 14 U/L Normal 13-35 [facility] Comment on above: Order Comment: Speci men Type: BLOOD SPECIMEN Ordering Facility: [facility] Address: [address] [place] [address] Performed By: #### 2 4331-1 #### [facility] CLIA [id number] 1 [place] [address] [place] [facility] CLIA [id number] [address] [place] [address] [place] #### 45020-4, 63160-3 #### [facility] CLIA [id number] [address] [place] [address] [place] Bilirubin [Mass/Vol] 0.3 mg/dL Normal 0.2-1.3 [facility] Comment on above: Order Comment: Speci men Type: BLOOD SPECIMEN Ordering Facility: [facility] Address: [address] [place] [id number] Performed By: #### 2 4331-1 #### [facility] CLIA [id number] 1 [place] [address] [place] [facility] CLIA [id number] [address] [place] [address] [place] #### 86070-8, 60579-1 #### [facility] CLIA [id number] [address] [place] [address] [place] Calcium [Mass/Vol] 9.9 mg/dL Normal 8.5-10.2 [facility] Comment on above: Order Comment: Speci men Type: BLOOD SPECIMEN Ordering Facility: [facility] Address: [address] [place] [address] Performed By: #### 2 4331-1 #### [facility] CLIA [id number] 1 [place] [address] [place] [facility] CLIA [id number] [address] [place] [address] [place] #### 01331-3, 82780-9 #### [facility] CLIA [id number] [address] [place] [address] [place] Chloride [Moles/Vol] 107 mmol/L Normal 98-107 [facility] Comment on above: Order Comment: Speci men Type: BLOOD SPECIMEN Ordering Facility: [facility] Address: [address] [place] [address] Performed By: #### 2 4331-1 #### [facility] CLIA [id number] 1 [place] [address] [place] [facility] CLIA [id number] [address] [place] [address] [place] #### 51632-7, 87636-3 #### [facility] CLIA [id number] [address] [place] [address] [place] CO2 [Moles/Vol] 18 mmol/L Low 22-30 [facility] Comment on above: Order Comment: Speci men Type: BLOOD SPECIMEN Ordering Facility: [facility] Address: [facility] [place] [address] Performed By: #### 2 4331-1 #### [facility] CLIA [id number] [address] CLIA [id number] [address] [place] [address] [place] #### 73662-9, 73023-5 #### [facility] CLIA [id number] [address] [place] [address] [place] Creatinine [Mass/Vol] 0.62 mg/dL Normal 0.58-0.96 [facility] Comment on above: Order Comment: Speci men Type: BLOOD SPECIMEN Ordering Facility: [facility] Address: [address] [place] [address] Performed By: #### 2 4331-1 #### [facility] CLIA [id number] [address] CLIA [id number] [address] [place] [address] [place] #### 17219-9, #### [facility] CLIA [id number] [address] [place] [address] Creatinine and Glomerular filtration rate.predicted panel (S/P/Bld) 119 mL/min/1.73m??? Normal >=60 [facility] Comment on above: Order Comment: Speci men Type: BLOOD SPECIMEN Ordering Facility: [facility] Address: [address] [place] [address] Result Comment: Ines mated Glomerular Filtration Rate (eGFR) is calculated using the 2020 CKD-EPI creatinine equation. This equation utilizes serum creatinine, sex, and age as parameters. The creatinine assay has traceable calibration to isotope dilution-mass spectrometry. Refer to KDIGO guidelines for clinical interpretation. In patients with unstable renal function, e.g. those with acute kidney injury, the eGFR may not accurately reflect actual GFR. Performed By: #### 2 4331-1 #### [facility] CLIA [id number] [address] CLIA [id number] [address] [place] [address] [place] #### 18635-8, #### [facility] CLIA [id number] [address] [place] [address] [place] Glucose [Mass/Vol] 100 mg/dL High 74-99 [facility] Comment on above: Order Comment: Speci men Type: BLOOD SPECIMEN Ordering Facility: [facility] Address: [address] [place] [address] Result Comment: The [place] Diabetes Association (ADA) provides guidance for cutoff values for fasting glucose and random glucose. The ADA defines fasting as no caloric intake for at least 8 hours. Fasting plasma glucose results between 100 to 125 mg/dL indicate increased risk for diabetes (prediabetes). Fasting plasma glucose results greater than or equal to 126 mg/dL meet the criteria for diagnosis of diabetes. In the absence of unequivocal hyperglycemia, results should be confirmed by repeat testing. In a patient with classic symptoms of hyperglycemia or hyperglycemic crisis, random plasma glucose results greater than or equal to 200 mg/dL meet the criteria for diagnosis of diabetes. Reference: Standards of Medical Care in Diabetes 2016, [place] Diabetes Association. Diabetes Care. 2016.39(Suppl 1). Performed By: #### 2 4331-1 #### [facility] CLIA [id number] 1 [place] [address] [place] [facility] CLIA [id number] [address] [place] [address] [place] #### 65897-8, #### [facility] CLIA [id number] [address] [place] [address] [place] Potassium [Moles/Vol] 4.3 mmol/L Normal 3.7-5.1 [facility] Comment on above: Order Comment: Speci men Type: BLOOD SPECIMEN Ordering Facility: [facility] Address: [address] [place] [address] Performed By: #### 2 4331-1 #### [facility] CLIA [id number] 1 [place] [address] [place] [facility] CLIA [id number] [address] [place] [address] [place] #### 54902-8, 15811-7 #### [facility] CLIA [id number] [address] [place] [address] [place] Protein [Mass/Vol] 7.0 g/dL Normal 6.3-8.0 [facility] Comment on above: Order Comment: Speci men Type: BLOOD SPECIMEN Ordering Facility: [facility] Address: [address] [place] [address] Performed By: #### 2 4331-1 #### [facility] CLIA [id number] 1 [place] [address] [place] [facility] CLIA [id number] [address] [place] [address] [place] #### 39007-8, 23752-5 #### [facility] CLIA [id number] [address] [place] [address] [place] Sodium [Moles/Vol] 140 mmol/L Normal 136-144 [facility] Comment on above: Order Comment: Speci men Type: BLOOD SPECIMEN Ordering Facility: [facility] Address: [facility] [place] [address] Performed By: #### 2 4331-1 #### [facility] CLIA [id number] 1 [place] [address] [place] [facility] CLIA [id number] [address] [place] [address] [place] #### 53678-0, 10669-8 #### [facility] CLIA [id number] [address] [place] [address] [place] Urea nitrogen [Mass/Vol] 12 mg/dL Normal 7-21 [facility] Comment on above: Order Comment: Ktae zurita Type: BLOOD SPECIMEN Ordering Facility: [facility] Address: [address] [place] [address] Performed By: #### 2 4331-1 #### [facility] CLIA [id number] 1 [place] [address] [place] [facility] CLIA [id number] [address] [place] #### 30940-3, 57654-3 #### [facility] CLIA [id number] [address] [place] [address] [place] HbA1c (Bld)on 12-27-2024 Average glucose Estimated from glycated hemoglobin (Bld) [Mass/Vol] 120 mg/dL Normal [facility] Comment on above: Order Comment: Kate zurita Type: BLOOD SPECIMENOrdering Facility: [facility] Address: [address] [place] [address] Result Comment: eAG: (Estimated average glucose) is a calculated value from HgbA1c and is in store representative of the average blood glucose level in the last 2-3 month period. Performed By: #### 5 5454-3 ####[facility] [id number] [address] [place] HbA1c (Bld) [Mass fraction] 5.8 % High 4.3-5.6 [facility] Comment on above: Order Comment: Kate zurita Type: BLOOD SPECIMENOrdering Facility: [facility] Address: [address] [place] [address] Result Comment: Amer [place] Diabetes Association guidelines indicate that patients with HgbA1c in the range 5.7-6.4% are at increased risk for development of diabetes, and intervention by lifestyle modification may be beneficial. HgbA1c greater or equal to 6.5% is considered diagnostic of diabetes. Performed By: #### 5 5454-3 ####[facility] [id number] [place] [address] [place] Lipid 1996 panelon 5 Cholesterol [Mass/Vol] 220 mg/dL High <200 [facility] Comment on above: Order Comment: Speci men Type: BLOOD SPECIMEN Ordering Facility: [facility] Address: [address] [place] [address] Result Comment: <200 mg/dL, Desirable 200-239 mg/dL, Borderline high >239 mg/dL, High Performed By: #### 2 4331-1 #### [facility] CLIA [id number] 1 [place] [address] [place] [facility] CLIA [id number] [address] [place] [address] [place] #### 26551-7, 62567-4 #### [facility] CLIA [id number] [address] [place] [address] [place] Cholesterol in HDL [Mass/Vol] 40 mg/dL Normal >39 [facility] Comment on above: Order Comment: Speci men Type: BLOOD SPECIMEN Ordering Facility: [facility] Address: [address] [place] [address] Result Comment: 40-5 9 mg/dL, Acceptable >59 mg/dL, High: Negative risk factor for coronary heart disease <40 mg/dL, Low: Positive risk factor for coronary heart disease Performed By: #### 2 4331-1 #### [facility] CLIA [id number] 1 [place] [address] [place] [facility] CLIA [id number] [address] [place] [address] [place] #### 38568-0, 23937-2 #### [facility] CLIA [id number] [address] [place] [address] [place] Cholesterol in LDL [Mass/Vol] 153 mg/dL High <100 [facility] Comment on above: Order Comment: Speci men Type: BLOOD SPECIMEN Ordering Facility: [facility] Address: [address] [place] [address] Result Comment: <100 mg/dL, Optimal 100-129 mg/dL, Near optimal/above optimal 130-159 mg/dL, Borderline high 160-189 mg/dL, High >189 mg/dL, Very high Secondary prevention optimal LDL Cholesterol levels are recommended to be < 70 mg/dL Performed By: #### 2 4331-1 #### [facility] CLIA [id number] [address] CLIA [id number] [address] [place] [address] [place] #### 03783-2, 64934-3 #### [facility] CLIA [id number] [address] [place] [address] [facility] Cholesterol in LDL/Cholesterol in HDL [Mass ratio] 3.83 {ratio} High <2.54 [facility] Comment on above: Order Comment: Speci men Type: BLOOD SPECIMEN Ordering Facility: [facility] Address: [address] [place] [address] Result Comment: Refe vincent: 1. National Cholesterol Education Program ATP III Guideline At-A-Glance Quick Desk Reference: National Heart, Lung, and Blood [place]. National Institutes of Health. 2001: NIH Publication No. 01-3305. 2. An International Atherosclerosis Society position paper: global recommendations for the management of dyslipidemia: executive summary, Atherosclerosis. 2014: 232(2):410-413. Performed By: #### 2 4331-1 #### [facility] CLIA [id number] [address] CLIA [id number] [address] [place] [address] [place] #### 65202-7, 13334-0 #### [facility] CLIA [id number] [address] [place] [address] [place] Cholesterol in VLDL [Mass/Vol] 27 mg/dL Normal <30 [facility] Comment on above: Order Comment: Speci men Type: BLOOD SPECIMEN Ordering Facility: [facility] Address: [facility] [place] [address] Performed By: #### 2 4331-1 #### [facility] CLIA [id number] [address] CLIA [id number] [address] [place] [address] [place] #### 80954-6, 68029-3 #### [facility] CLIA [id number] [address] [place] [address] [place] Cholesterol non HDL [Mass/Vol] 180 mg/dL High <130 [facility] Comment on above: Order Comment: Speci men Type: BLOOD SPECIMEN Ordering Facility: [facility] Address: [address] [place] [address] Result Comment: <130 mg/dL, Optimal 130-159 mg/dL, Near optimal/above optimal 160-189 mg/dL, Borderline high 190-219 mg/dL, High >219 mg/dL, Very high Secondary prevention optimal non HDL Cholesterol levels are recommended to be <100 mg/dL Performed By: #### 2 4331-1 #### [facility] CLIA [id number] [address] CLIA [id number] [address] [place] [address] [place] #### 63286-7, 34939-1 #### [facility] CLIA [id number] [address] [place] [address] [place] Cholesterol.total/Alexander sterol in HDL [Mass ratio] 5.50 {ratio} High <5.10 [facility] Comment on above: Order Comment: Speci men Type: BLOOD SPECIMEN Ordering Facility: [facility] Address: [address] [place] [address] Performed By: #### 2 4331-1 #### [facility] CLIA [id number] [address] [place] [facility] CLIA [id number] [address] [place] [address] [place] #### 07135-7, #### [facility] CLIA [id number] 1 [place] [address] [place] FASTING TIME 12 hrs Normal [facility] Comment on above: Order Comment: Speci men Type: BLOOD SPECIMEN Ordering Facility: [facility] Address: [address] [place] [address] Performed By: #### 2 4331-1 #### [facility] CLIA [id number] 1 [place] [address] [place] [facility] CLIA [id number] [address] [place] [address] [place] #### 48832-6, #### [facility] CLIA [id number] [address] [place] [address] [place] Triglyceride [Mass/Vol] 133 mg/dL Normal <150 [facility] Comment on above: Order Comment: Speci men Type: BLOOD SPECIMEN Ordering Facility: [facility] Address: [address] [place] [address] Result Comment: <150 mg/dL, Normal 150-199 mg/dL, Borderline high 200-499 mg/dL, High >499 mg/dL, Very high Performed By: #### 2 4331-1 #### [facility] CLIA [id number] 1 [place] [address] [place] [facility] CLIA [id number] [address] [place] [address] [place] #### 49519-5, #### [facility] CLIA [id number] [address] [place] [address] [place] Magnesium SerPl-mCncon 12-27 Magnesium [Mass/Vol] 2.1 mg/dL Normal 1.7-2.3 [facility] Comment on above: Order Comment: Speci men Type: BLOOD SPECIMEN Ordering Facility: [facility] Address: [address] [place] [address] Performed By: #### 2 4331-1 #### [facility] CLIA [id number] [address] OF [facility] CLIA [id number] [address] [place] [address] [place] #### 39705-9, 73436-1 #### [facility] CLIA [id number] [address] [place] [address] OF [facility] CNOVon 12-20-2024 [facility] MACEY CAMPBELL ([id number]) 1990 Date Time Provider Department 12/20/24 11:00 AM RADHA GARDUNO [facility] During your visit today, we recorded the following information about you: Pulse Respiration Blood pressure Weight 100/minute 16/minute 118/78 81.2 kg Radha Garduno APRN.FRANCHISE DEVELOPMENT MANAGER 12/20/2024 4:15 PM Signed This is a 34 year old female who presents today with: Patient presents with: Yearly Exam HISTORY OF PRESENT ILLNESS: Macey Campbell is a 34 year old female. Patient presents with: Yearly Exam REVIEW OF SYSTEMS GENERAL: No weight loss, malaise or fevers/chills HEENT: Negative for frequent or significant headaches, gets migraines. Nothing worsening. No changes in hearing or vision. NECK: Negative for lumps, goiter, pain and significant neck swelling RESPIRATORY: Negative for cough, hemoptysis, wheezing, dyspnea or shortness of breath CARDIOVASCULAR: Negative for chest pain, leg swelling, orthopnea, or palpitations GI: No nausea, vomiting, or diarrhea/constipatio n. No hematochezia/melena. + reflux controlled by omeprazole. : No history of dysuria, frequency or incontinence MUSCULOSKELETAL: Negative for joint pain or swelling. Gets some hip pain. SKIN: Negative for lesions, rash, and itching ENDOCRINE: Negative for cold or heat intolerance, polyuria, polydipsia and goiter NEURO: No history of headaches, syncope, paralysis, seizures or tremors Migraines: Used maxalt yesterday, which is the first time for awhile. Takes amitriptyline at bedtime. HYPERLIPIDEMIA: Patient is taking medications: Yes. Patient is watching diet: No Patient denies myalgias: Yes. Patient denies gi upset: Yes GERD: Controlled on PPI. Prediabetes: Takes metformin. Denies side effects. PCOS: Takes spironolactone. Denies problems. PAST MEDICAL HISTORY: PAST MEDICAL HISTORY Diagnosis Date GERD without esophagitis 12/31/2021 Obesity, Class I, BMI 30-34.9 12/31/2021 PCOS (polycystic ovarian syndrome) Tobacco use disorder 12/31/2021 PAST SURGICAL HISTORY Procedure Laterality Date COLONOSCOPY SCREENING 02/08/2024 EGD W/O BRSH SPEC VARICIES INJ 02/08/2024 LAPS ABD PRTMANDOMENTUM DX W/WO SPEC BR/WA SPX 2014 Laparoscopy - for r/o endometriosis, foung to have a cyst PT ED OBSTETRICS AND GYNECOLOGY N/A 12/2019 laparoscopic hysterectomy - for endometriosis - Dr. Shelley REMOVAL OF OVARY(S) Right 10/24/2020 ovarian torsion REMOVAL OF OVARY(S) Left 12/2020 Dr Jo SALPINGECTOMY Right 12/27/2016 laparoscopic Right salpingectomy- ECTOPIC ALLERGIES Cleocin [Clindamycin] and Sulfa (Sulfonamide Antibiotics) MEDICATIONS Current Outpatient Medications Medication Sig rizatriptan (MAXALT ARMORING MACHINE OPERATOR) 10 mg disintegrating tablet Take 1 tablet (10 mg) by mouth as needed. May repeat in 2 hours if needed metFORMIN ER (GLUCOPHAGE XR) 500 mg 24 hr tablet Take 1 tablet by mouth daily with breakfast. spironolactone (ALDACTONE) 50 mg tablet Take 1 tablet by mouth two times a day. omeprazole (PRILOSEC) 40 mg capsule Take 1 capsule by mouth once daily. rosuvastatin (CRESTOR) 5 mg tablet Take 2 tablets by mouth daily at bedtime. amitriptyline (ELAVIL) 10 mg tablet Take 1 tablet by mouth daily at bedtime. estradiol (ESTRACE) 1 mg tablet No current facility-administere d medications for this visit. FAMILY HISTORY Problem Relation Age of Onset Cervical Cancer Mother other (breast cyst [Other]) Mother Hyperlipidemia Father Hypertension Father other (sepsis) Father (after ruptured appe and another surgical complication where bowel was perforated during [place]). No Known Problems Sister No Known Problems Sister ADD/ADHD Brother Depression Brother ADD/ADHD Brother Stroke Maternal Grandmother No Known Problems Maternal Grandfather Hypertension Paternal Grandmother Hyperlipidemia Paternal Grandmother Skin Cancer Paternal Grandmother other (ewings sarcoma) Paternal Grandmother Hypertension Paternal Grandfather Heart Attack Paternal Grandfather Diabetes Paternal Grandfather Hyperlipidemia Paternal Grandfather COPD Paternal Grandfather ADD/ADHD Son Social History Tobacco Use Smoking status: Every Day Current packs/day: 0.50 Average packs/day: 0.5 packs/day for 15.0 years (7.5 ttl pk-yrs) Types: Cigarettes Smokeless tobacco: Never Vaping Use Vaping status: Never Used Substance Use Topics Alcohol use: Yes Alcohol/week: 1.0 standard drink of alcohol Types: 1 Glasses of Wine (5oz) per week Comment: Social Drug use: No EXAM: BP 118/78 Pulse 100 Resp 16 Wt 81.2 kg (179 lb) LMP 08/04/2016 SpO2 96% BMI 31.71 kg/m? PHYSICAL EXAM: General Appearance: Well appearing, alert, in no acute distress, well-hydrated, well nourished.. Skin: Skin color, texture, turgor normal, no suspicious rashes or lesions. Head: Normocephalic, no masses, (more content not included)... [facility] CNOVon 12-05-2024 CNOV Office Visit ([facility]) MACEY CAMPBELL ([id number]) 1990 F Date Time Provider Department 12/05/24 10:00 AM RADHA GARDUNO During your visit today, we recorded the following information about you: Temperature Pulse Respiration Blood pressure 98.6 degrees 91/minute 16/minute 114/72 Radha Garduno APRN.FRANCHISE DEVELOPMENT MANAGER 12/05/2024 12:23 PM Signed This is a 34 year old female who presents today with: Patient presents with: Recheck: Follow up from illness, not feeling any better HISTORY OF PRESENT ILLNESS: Macey Campbell is a 34 year old female. Patient presents with: Recheck: Follow up from illness, not feeling any better Pt presents with complaint of ongoing sickness. Started w/ cold symptoms several weeks ago. Was almost 2 weeks into symptoms and went to walk-in clinic. Told that it could be a sinus infection. Started doxycycline. Thursday, wasn't feeling any better -- chest pain w/ coughing. Returned to primary care. Chest xray was normal. Cough medication. Thursday felt worse. Didn't sleep that night d/t coughing and headache. + dizziness. + diarrhea. Took some ibuprofen, dramamine, and imodium. Took a variety of different OTC medications. 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 101.2. Taking tylenol and ibuprofen. Getting some sharp thoracic back pain w/ cough. PAST MEDICAL HISTORY: PAST MEDICAL HISTORY Diagnosis Date GERD without esophagitis 12/31/2021 Obesity, Class I, BMI 30-34.9 12/31/2021 PCOS (polycystic ovarian syndrome) Tobacco use disorder 12/31/2021 PAST SURGICAL HISTORY Procedure Laterality Date COLONOSCOPY SCREENING 02/08/2024 EGD W/O BRSH SPEC VARICIES INJ 02/08/2024 LAPS ABD PRTMANDOMENTUM DX W/WO SPEC BR/WA SPX 2014 Laparoscopy - for r/o endometriosis, foung to have a cyst PT ED OBSTETRICS AND GYNECOLOGY N/A 12/2019 laparoscopic hysterectomy - for endometriosis - Dr. Shelley REMOVAL OF OVARY(S) Right 10/24/2020 ovarian torsion REMOVAL OF OVARY(S) Left 12/2020 Dr Jo SALPINGECTOMY Right 12/27/2016 laparoscopic Right salpingectomy- ECTOPIC ALLERGIES Cleocin [Clindamycin] and Sulfa (Sulfonamide Antibiotics) MEDICATIONS Current Outpatient Medications Medication Sig Doxycycline Hyclate 100 mg EC tablet Take 100 mg by mouth two times a day. X 7 days albuterol HFA (PROVENTIL HFA, VENTOLIN HFA) 90 mcg/actuation inhaler Inhale 2 Puffs as instructed every 4 hours as needed for wheezing/shortness of breath. benzonatate (TESSALON PERLE) 100 mg capsule Take 1 capsule by mouth three times a day as needed for up to 10 days. predniSONE (DELTASONE) 10 mg tablet 6 tabs po day 1 and 2, then 5 tabs day 3 and 4, 4 tabs day 5 and 6, 3 tabs day 7 and 8, 2 tabs day 9 and 10, 1 tab day 11 and 12. (Patient not taking: Reported on 09/20/2024) cyclobenzaprine (FLEXERIL) 10 mg tablet Take 1 tablet by mouth three times a day as needed for muscle spasm. (Patient not taking: Reported on 09/20/2024) omeprazole (PRILOSEC) 40 mg capsule Take 1 capsule by mouth once daily. rosuvastatin (CRESTOR) 5 mg tablet Take 2 tablets by mouth daily at bedtime. spironolactone (ALDACTONE) 50 mg tablet Take 1 tablet by mouth two times a day. amitriptyline (ELAVIL) 10 mg tablet Take 1 tablet by mouth daily at bedtime. metFORMIN ER (GLUCOPHAGE XR) 500 mg 24 hr tablet Take 1 tablet by mouth daily with breakfast. estradiol (ESTRACE) 1 mg tablet rizatriptan (MAXALT ARMORING MACHINE OPERATOR) 10 mg disintegrating tablet Take 1 tablet by mouth as needed. May repeat in 2 hours if needed No current facility-administere d medications for this visit. FAMILY HISTORY Problem Relation Age of Onset Cervical Cancer Mother other (breast cyst [Other]) Mother Hyperlipidemia Father Hypertension Father No Known Problems Brother ADD/ADHD Brother Stroke Maternal Grandmother No Known Problems Maternal Grandfather Hypertension Paternal Grandmother Hyperlipidemia Paternal Grandmother Skin Cancer Paternal Grandmother Hypertension Paternal Grandfather Heart Attack Paternal Grandfather Diabetes Paternal Grandfather Hyperlipidemia Paternal Grandfather COPD Paternal Grandfather ADD/ADHD Son No Known Problems Half-sister No Known Problems Half-sister Social History Tobacco Use Smoking status: Every Day Current packs/day: 0.50 Average packs/day: 0.5 packs/day for 15.0 years (7.5 ttl pk-yrs) Types: Cigarettes Smokeless tobacco: Never Vaping Use Vaping status: Never Used Substance Use Topics Alcohol use: Yes Alcohol/week: 1.0 standard drink of alcohol Types: 1 Glasses of Wine (5oz) per week Comment: Social Drug use: No EXAM: BP 114/72 Pulse 91 Resp 16 LMP 08/04/2016 SpO2 98% PHYSICAL EXAM: General Appearance: Well appearing, alert, in no acute distress, well-hydrated, well nourished.. Skin: Skin color, texture, turgor normal, no suspicious rashes or lesions. Head: Normocephalic, no masses, lesi (more content not included)... [facility] CNOVon 11-30-2024 CNOV Office Visit [facility] MACEY CAMPBELL ([id number]) 1990 F Date Time Provider Department 11/30/24 11:40 AM ALEXANDER DICKEY [facility] During your visit today, we recorded the following information about you: Temperature Pulse Blood pressure Weight 98.9 degrees 97/minute 116/74 81.4 kg Alexander Dickey MD 12/04/2024 2:09 PM Signed Chief Complaint Patient presents with: URI: Patient reports started 2 weeks ago went to [facility] and placed on ATB Thursday. Reports she is getting worse vs better Cough Head Congestion Headache back ache Chest Pain HPI Macey Campbell is a 34 year old female who presents here today for Above Complaints.. Paitent complaining of dry cough, chest congestion, chest pain with cough and breathing, headache, new loss of taste/smell, nasal congestion, rhinorrhea, fatigue, which started 2 weeks ago. Patient evaluated at the [facility] 4 days ago and was treated with Doxycycline for possible sinus infection. Has had loose stools since starting abx and symptoms have not improved. Treating symptoms with sudafed, mucinex, nyquil, dayquil, robitussin, nasal saline, vicks, neti pot. Notes possible sick contacts prior to illness at large work meeting. Has not tested for COVID at home. Denies fever, SOB, wheezing, sore throat, myalgias, sinus pain/pressure, nausea, vomiting, ear pain/fullness, urinary symptoms, joint pain, rash, hemoptysis. Feels like symptoms are worsening with recurrent headache and worsening chest pain. Past medical history, appointments, medications, allergies reviewed. Previous Medical History PAST MEDICAL HISTORY Diagnosis Date GERD without esophagitis 12/31/2021 Obesity, Class I, BMI 30-34.9 12/31/2021 PCOS (polycystic ovarian syndrome) Tobacco use disorder 12/31/2021 Previous Surgical History PAST SURGICAL HISTORY Procedure Laterality Date COLONOSCOPY SCREENING 02/08/2024 EGD W/O BRSH SPEC VARICIES INJ 02/08/2024 LAPS ABD PRTMANDOMENTUM DX W/WO SPEC BR/WA SPX 2014 Laparoscopy - for r/o endometriosis, foung to have a cyst PT ED OBSTETRICS AND GYNECOLOGY N/A 12/2019 laparoscopic hysterectomy - for endometriosis - Dr. Shelley REMOVAL OF OVARY(S) Right 10/24/2020 ovarian torsion REMOVAL OF OVARY(S) Left 12/2020 Dr Jo SALPINGECTOMY Right 12/27/2016 laparoscopic Right salpingectomy- ECTOPIC Family History FAMILY HISTORY Problem Relation Age of Onset Cervical Cancer Mother other (breast cyst [Other]) Mother Hyperlipidemia Father Hypertension Father No Known Problems Brother ADD/ADHD Brother Stroke Maternal Grandmother No Known Problems Maternal Grandfather Hypertension Paternal Grandmother Hyperlipidemia Paternal Grandmother Skin Cancer Paternal Grandmother Hypertension Paternal Grandfather Heart Attack Paternal Grandfather Diabetes Paternal Grandfather Hyperlipidemia Paternal Grandfather COPD Paternal Grandfather ADD/ADHD Son No Known Problems Half-sister No Known Problems Half-sister Patient Allergies ALLERGIES Allergen Reactions Cleocin [Clindamyci* Rash Sulfa (Sulfonamide * Rash Current Medications Current Outpatient Medications on File Prior to Visit Medication Sig Doxycycline Hyclate 100 mg EC tablet Take 100 mg by mouth two times a day. X 7 days omeprazole (PRILOSEC) 40 mg capsule Take 1 capsule by mouth once daily. rosuvastatin (CRESTOR) 5 mg tablet Take 2 tablets by mouth daily at bedtime. spironolactone (ALDACTONE) 50 mg tablet Take 1 tablet by mouth two times a day. amitriptyline (ELAVIL) 10 mg tablet Take 1 tablet by mouth daily at bedtime. metFORMIN ER (GLUCOPHAGE XR) 500 mg 24 hr tablet Take 1 tablet by mouth daily with breakfast. estradiol (ESTRACE) 1 mg tablet rizatriptan (MAXALT ARMORING MACHINE OPERATOR) 10 mg disintegrating tablet Take 1 tablet by mouth as needed. May repeat in 2 hours if needed predniSONE (DELTASONE) 10 mg tablet 6 tabs po day 1 and 2, then 5 tabs day 3 and 4, 4 tabs day 5 and 6, 3 tabs day 7 and 8, 2 tabs day 9 and 10, 1 tab day 11 and 12. (Patient not taking: Reported on 09/20/2024) cyclobenzaprine (FLEXERIL) 10 mg tablet Take 1 tablet by mouth three times a day as needed for muscle spasm. (Patient not taking: Reported on 09/20/2024) No current facility-administere d medications on file prior to visit. Social History Social History Tobacco Use Smoking status: Every Day Current packs/day: 0.50 Average packs/day: 0.5 packs/day for 15.0 years (7.5 ttl pk-yrs) Types: Cigarettes Smokeless tobacco: Never Vaping Use Vaping status: Never Used Substance Use Topics Alcohol use: Yes Alcohol/week: 1.0 standard drink of alcohol Types: 1 Glasses of Wine (5oz) per week Comment: Social Drug use: No Review of Symptoms REVIEW OF SYSTEMS See HPI EXAM: BP 116/74 Pulse 97 Temp 37.2 ?C (98.9 ?F) Wt 81.4 kg (179 lb 6.4 oz) LMP (more content not included)... [facility] Job 11-30-2024 [facility] Telephone ([facility]) MACEY CAMPBELL ([id number]) 1990 F Date Time Provider Department 11/30/24 ALEXANDER DICKEY During your visit today, we recorded the following information about you: Alexa Fulton LPN 11/30/2024 2:13 PM Signed ----- Message from Alexander Dickey MD sent at 11/30/2024 1:22 PM EST ----- Normal chest xray. No change in regimen. Alexa Fulton LPN 11/30/2024 2:14 PM Signed Message left for patient to return call to review results. DHARMESH Burroughs Krystle, RN 11/30/2024 2:21 PM Signed Patient calls and notified of results and providers instructions. Patient verbalizes understanding. Kayla Carr RN Allergies As of Date: 11/30/2024 Noted Allergy Reaction CLEOCIN (CLINDAMYCIN) 10/16/2021 2 - Rash SULFA (SULFONAMIDE ANTIBIOTICS) 12/13/2010 2 - Rash Date Reviewed: 11/30/2024 Reviewed by: Alexa Fulton LPN - Fully Assessed Reason for Visit: Results [95] Prescriptions as of 11/30/2024 - Doxycycline Hyclate 100 mg EC tablet Take 100 mg by mouth two times a day. X 7 days - albuterol HFA (PROVENTIL HFA, VENTOLIN HFA) 90 mcg/actuation inhaler Inhale 2 Puffs as instructed every 4 hours as needed for wheezing/shortness of breath. - benzonatate (TESSALON PERLE) 100 mg capsule Take 1 capsule by mouth three times a day as needed for up to 10 days. - predniSONE (DELTASONE) 10 mg tablet 6 tabs po day 1 and 2, then 5 tabs day 3 and 4, 4 tabs day 5 and 6, 3 tabs day 7 and 8, 2 tabs day 9 and 10, 1 tab day 11 and 12. - cyclobenzaprine (FLEXERIL) 10 mg tablet Take 1 tablet by mouth three times a day as needed for muscle spasm. - omeprazole (PRILOSEC) 40 mg capsule Take 1 capsule by mouth once daily. - rosuvastatin (CRESTOR) 5 mg tablet Take 2 tablets by mouth daily at bedtime. - spironolactone (ALDACTONE) 50 mg tablet Take 1 tablet by mouth two times a day. - amitriptyline (ELAVIL) 10 mg tablet Take 1 tablet by mouth daily at bedtime. - metFORMIN ER (GLUCOPHAGE XR) 500 mg 24 hr tablet Take 1 tablet by mouth daily with breakfast. - estradiol (ESTRACE) 1 mg tablet - rizatriptan (MAXALT ARMORING MACHINE OPERATOR) 10 mg disintegrating tablet Take 1 tablet by mouth as needed. May repeat in 2 hours if needed Problem List As Of Date 11/30/2024 Noted Resolved Gastroenteritis [K52.9] 12/13/2010 Abdominal pain, acute, right upper quadrant [R1*12/13/2010 Tachycardia [R00.0] 12/13/2010 Menstrual irregularity [N92.6] 12/13/2010 Infertility associated with anovulation [N97.0] 09/13/2012 PCOS (polycystic ovarian syndrome) [E28.2] 09/27/2012 12/31/2021 Pain, upper back [M54.9] 09/07/2013 01/21/2022 Pelvic pain in female [R10.2] 10/31/2013 Pain in joint, shoulder region [M25.519] 01/10/2015 01/21/2022 GERD without esophagitis [K21.9] 12/31/2021 Obesity, Class I, BMI 30-34.9 [E66.811] 12/31/2021 Tobacco use disorder [F17.200] 12/31/2021 Hyperglycemia [R73.9] 01/21/2022 Mixed hyperlipidemia [E78.2] 04/16/2022 Acute back pain with sciatica, left [M54.42] 06/28/2024 Pain of left hip joint [M25.552] 06/28/2024 Encounter Status:Closed by KAYLA CARR on 11/30/24 [facility] XR CHEST 2V FRONTAL/LATon XR CHEST 2V FRONTAL/LAT * * *Final Repor t* * * DATE OF EXAM: Nov 30 2024 12:47PM WOX [id number] - XR CHEST 2V FRONTAL/LAT / PROCEDURE REASON: multiple diagnoses * * * * Physician Interpretation * * * * EXAMINATION: CHEST RADIOGRAPH (2 VIEW FRONTAL and LATERAL) CLINICAL HISTORY: Viral URI with cough Costochondritis MQ: XC2_6 EXAM DATE/TIME: 11/30/2024 12:47 PM COMPARISON: 05/02/2013 RESULT: Lines, tubes, and devices: None. Lungs and pleura: No consolidation. No lung mass. No pleural effusion. No pneumothorax. Cardiomediastinal silhouette: Normal cardiomediastinal silhouette. Bones and soft tissues: Unremarkable. IMPRESSION: No acute radiographic abnormality. Big Machine Consultant: PSCB Transcribe Date/Time: Nov 30 2024 12:52P Dictated by : AZAEL MONTENEGRO MD This examination was interpreted and the report reviewed and electronically signed by: AZAEL MONTENEGRO MD on Nov 30 2024 12:52PM EST [id number] [facility] XR Chest PA and Lateralon IMPRESSION: No acute radiographic abnormality. Big Machine Consultant: PSCB Transcribe Date/Time: Nov 30 2024 12:52P Dictated by : AZAEL MONTENEGRO MD This examination was interpreted and the report reviewed and electronically signed by: AZAEL MONTENEGRO MD on Nov 30 2024 12:52PM EST DIVISION OF RADIOLOGY * * *Final Report* * * DATE OF EXAM: Nov 30 2024 12:47PM WOX [id number] - XR CHEST 2V FRONTAL/LAT / PROCEDURE REASON: multiple diagnoses * * * * Physician Interpretation * * * * EXAMINATION: CHEST RADIOGRAPH (2 VIEW FRONTAL & LATERAL) CLINICAL HISTORY: Viral URI with cough Costochondritis MQ: XC2_6 EXAM DATE/TIME: 11/30/2024 12:47 PM COMPARISON: 05/02/2013 RESULT: Lines, tubes, and devices: None. Lungs and pleura: No consolidation. No lung mass. No pleural effusion. No pneumothorax. Cardiomediastinal silhouette: Normal cardiomediastinal silhouette. Bones and soft tissues: Unremarkable. DIVISION OF RADIOLOGY Provider, [facility] - 11/30/2024 * * *Final Report* * * DATE OF EXAM: Nov 30 2024 12:47PM WOX [id number] - XR CHEST 2V FRONTAL/LAT / PROCEDURE REASON: multiple diagnoses * * * * Physician Interpretation * * * * EXAMINATION: CHEST RADIOGRAPH (2 VIEW FRONTAL & LATERAL) CLINICAL HISTORY: Viral URI with cough Costochondritis MQ: XC2_6 EXAM DATE/TIME: 11/30/2024 12:47 PM COMPARISON: 05/02/2013 RESULT: Lines, tubes, and devices: None. Lungs and pleura: No consolidation. No lung mass. No pleural effusion. No pneumothorax. Cardiomediastinal silhouette: Normal cardiomediastinal silhouette. Bones and soft tissues: Unremarkable. IMPRESSION IMPRESSION: No acute radiographic abnormality. Big Machine Consultant: PSCLady Transcribe Date/Time: Nov 30 2024 12:52P Dictated by : AZAEL MONTENEGRO MD This examination was interpreted and the report reviewed and electronically signed by: AZAEL MONTENEGRO MD on Nov 30 2024 12:52PM EST [facility] Radiology Study observation (narrative) Manjinder chen [facility] XR Chest PA and LateralOrder ed By: [facility] Provider on 11-30-2024 [facility] Visit Reporton 0 11-27-2024 Urgent Care Visit Report [facility] [address], [address] [place] [address] OFFICE VISIT Date of Service: 11/27/24 MR#: [id number] Acct: [id number] Name: MACEY CAMPBELL Rep #: [id number] : 1990 Provider: ANGELITO cary Age/Sex: 34/F Location: [facility] Status: Signed Intake Vital Signs 04/14/24 14:37 11/27/24 08:00 Height 5 ft 2 in 5 ft 2 in Weight: 181 lb BMI 33.0 BP 114/76 Blood Pressure Location Lt brachial Position Sitting Respiration 17 Pulse 91 Pulse Source NIBP Temp 98.9 F Temp Source Oral Pulse Oximetry (%) 99 Oxygen Delivery Method room air Intake Visit Reasons: COUGH, CHEST CONGESTION Chief Complaint: cough, chest congest [employer] Report Developer Required: No Is patient in pain?: No Allergies Sulfa (Sulfonamide Antibiotics) Allergy (Mild, Verified 11/27/24 08:21) Rash clindamycin Allergy (Verified 11/27/24 08:21) Rash Medications ???Medication ???Instructions ???Recorded ???Confirmed ???Type atorvastatin 20 mg tablet 20 mg PO QHS 05/19/22 11/27/24 History estradiol 1 mg tablet 1 mg PO DAILY #90 tabs 04/14/24 11/27/24 Rx metformin 500 mg tablet 500 mg PO DAILY 04/14/24 11/27/24 History spironolactone 50 mg tablet 50 mg PO BID 04/14/24 11/27/24 History doxycycline hyclate 100 mg capsule 100 mg PO BID 7 days #14 caps 11/27/24 11/27/24 Rx Is last menstrual period known: No Post menopausal: No Patient : No Have you fallen in the past year?: No Nurse's Note: cough, chest congestion x 10 days without resolve. denies PENDLETON, BA, fever, ST. PFSH Medical History Acid reflux Chronic neck and back pain Severe headache Endometriosis Ectopic History of PCOS History of ovarian cyst Surgical History H/O unilateral oophorectomy ( 01/30/21) History of right oophorectomy History of LAVH [place] teeth extracted History of laparoscopy Family History Grandfather Diabetes Heart disease Social History Smoking Status: Current every day smoker tobacco type: cigarettes alcohol intake: former details: social substance use type: does not use caffeine: Yes what type of physical activity do you participate in: none seatbelt use: always do you feel safe at home: Yes 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 This has not completely resolved. She denies headache, body ache, fever, or sore throat. She has tried OTC medications without significant improvement in symptoms. She denies known sick contacts, but states a recent work meeting that had over 100 individuals. ROS Const Constitutional: Positive for abnormal sleep pattern (cough keeps her up); No body ache, chills, fatigue, fever(s), headache(s) or change in appetite Eyes Eyes: Positive for discharge (gooey); No blurry vision, change in vision, double vision, irritation, vision loss, dry eyes, bulging eyes, floaters, visual disturbances, eye pain, Light sensitivity, spots in vision, tunnel vision or other ENT ENT: Positive for nasal congestion, sinus pressure, sinus pain, nasal discharge (resolved) and post nasal drip (when lie down); No ear or mastoid pain, ear discharge, ear pressure, tinnitus, dizziness/vertigo, nosebleed/epistaxis, nose pain, headache(s), facial pain, dental pain, difficulty swallowing, bad breath, hoarseness, lip swelling, mouth lesions, mouth pain, neck pain, sore throat, tongue swelling or throat swelling Resp Respiratory: Positive for cough (Moving but nothing comes up) Cough: Yes productive, chest congestion and shortness of breath (cough); No change in phlegm color, hemoptysis, pain on inspiration, pain with cough, stridor or wheezing Cardio Cardiology: Positive for chest pain at rest (ache); No chest pain with exertion, shortness of breath, dyspnea on exertion or lightheadedness Gastro GI: No abdominal pain, change in bowel habits, constipation, diarrhea, difficulty swallowing, nausea/dyspepsia or vomiting Genitourinary-Female : No burning urination or urinary frequency Musc Musculoskeletal: No joint pain or neck pain Skin Skin: No rash Neuro Neurology: No headache(s) or visual disturbances Psych Psychiatric: Positive for abnormal sleep pattern (cough keeps her up) and No change in appetite Endo Endocrine: No fatigue Aller/Imm Allergy/Immunologic: No lip swelling, throat swelling, tongue swelling or wheezing Exam Const General: cooperative, healthy appearing, comfo (more content not included)... Normal [facility] BRIEF OP NOTon 11-23-2024 BRIEF OP NOT HNO ID: [id number] Author: BJORN SANCHEZ APRN.CNP Service: Interventional Radiology Author Type: Nurse Practitioner Type: Brief Op Note Filed: 11/23/2024 11:56 Note Text: BRIEF OP NOTE LOG ID: [id number] Surgery/Procedure Date: 11/23/2024 Incision/Procedure Start Time: 11:10 AM Incision Close/Procedure End Time: 11:14 AM Surgeon(s)/Procedura list(s) and Compilation Clerk(s): Bjorn Sanchez APRN.CNP Procedure(s): Imaging guided diagnostic left hip pain injection Anesthesia: local 5 ml lidocaine Findings: Successful left hip pain injection of 5 cc Lidocaine 1%. Pre-procedure pain of 7/10 Post-procedure pain of 4/10 Estimated Blood Loss: <1 ml Specimens: None Complications: None Pre-Op/Pre-Procedure Diagnosis: left hip pain Post-Op/Post-Procedu re Diagnosis: same SIGNATURE: Bjorn Sanchez APRN.CNP PATIENT NAME: Macey Campbell DATE: November 23, 2024 TIME: 11:25 AM PAGER/CONTACT #: [facility] Guidance for injection of Hi edson 11-23-2024 IMPRESSION: Technically successful fluoroscopy guided left hip injection for pain management. Procedure was performed by Bjorn Sanchez APRN, CNP. Big Machine Consultant: ADILENE Transcribe Date/Time: Nov 23 2024 11:56A Dictated by : BJORN SANCHEZ CNP This examination was interpreted and the report reviewed and electronically signed by: BJORN SANCHEZ CNP on Nov 23 2024 12:00PM [facility] RAD[facility]OLOG[facility] * * *Final Report* * * DATE OF EXAM: Nov 23 2024 11:48AM MDX 5852 - XR HIP/ILIOPSOAS INJECTION LT / PROCEDURE REASON: pain in left hip * * * * Physician Interpretation * * * * EXAM TITLE: FLUOROSCOPY GUIDED DIAGNOSTIC LEFT HIP INJECTION DATE: 11/23/2024 COMPARISON: 09/08/2024 CLINICAL INDICATION/HISTORY: The patient is a 34-year-old woman with known osteoarthritis and left hip pain. TECHNIQUE: Informed consent was obtained from the patient. The patient was placed in a supine position and the left groin was prepped and draped in a sterile fashion. With fluoroscopy an appropriate skin entry site was identified and anesthetized. A 20-gauge spinal needle was directed into the hip joint and contrast was injected to confirm the intra-articular position of the needle tip. 5 cc of 1% lidocaine was injected into the hip joint. The hip was exercised. 0 minutes and 36 seconds of fluoroscopy time was utilized during the procedure. There were no apparent complications. FINDINGS: Spot film demonstrates joint space narrowing of the hip. Preprocedure pain was 7 out of 10. Post procedure pain was 4 out of 10. Procedure was performed by: [facility] Provider, [facility] [place] - 11/23/2024 * * *Final Report* * * DATE OF EXAM: Nov 23 2024 11:48AM MDX 5852 - XR HIP/ILIOPSOAS INJECTION LT / PROCEDURE REASON: pain in left hip * * * * Physician Interpretation * * * * EXAM TITLE: FLUOROSCOPY GUIDED DIAGNOSTIC LEFT HIP INJECTION DATE: 11/23/2024 COMPARISON: 09/08/2024 CLINICAL INDICATION/HISTORY: The patient is a 34-year-old woman with known osteoarthritis and left hip pain. TECHNIQUE: Informed consent was obtained from the patient. The patient was placed in a supine position and the left groin was prepped and draped in a sterile fashion. With fluoroscopy an appropriate skin entry site was identified and anesthetized. A 20-gauge spinal needle was directed into the hip joint and contrast was injected to confirm the intra-articular position of the needle tip. 5 cc of 1% lidocaine was injected into the hip joint. The hip was exercised. 0 minutes and 36 seconds of fluoroscopy time was utilized during the procedure. There were no apparent complications. FINDINGS: Spot film demonstrates joint space narrowing of the hip. Preprocedure pain was 7 out of 10. Post procedure pain was 4 out of 10. Procedure was performed by: IMPRESSION IMPRESSION: Technically successful fluoroscopy guided left hip injection for pain management. Procedure was performed by Bjorn Sanchez APRN, CNP. Big Machine Consultant: ADILENE Transcribe Date/Time: Nov 23 2024 11:56A Dictated by : BJORN SANCHEZ CNP This examination was interpreted and the report reviewed and electronically signed by: BJORN SANCHEZ CNP on Nov 23 2024 12:00PM EST [facility] Radiology Study observation (narrative) Manjinder Enrique Guidance for injection of Hi pOrdered By: [facility] Provider on 11-23-2024 [facility] XR HIP/ILIOPSOAS INJECTION L Ton 11-23-2024 XR HIP/ILIOPSOAS INJECTION LT * * *Final Report* * * DATE OF EXAM: Nov 23 2024 11:48AM MDX 5852 - XR HIP/ILIOPSOAS INJECTION LT / PROCEDURE REASON: pain in left hip * * * * Physician Interpretation * * * * EXAM TITLE: FLUOROSCOPY GUIDED DIAGNOSTIC LEFT HIP INJECTION DATE: 11/23/2024 COMPARISON: 09/08/2024 CLINICAL INDICATION/HISTORY: The patient is a 34-year-old woman with known osteoarthritis and left hip pain. TECHNIQUE: Informed consent was obtained from the patient. The patient was placed in a supine position and the left groin was prepped and draped in a sterile fashion. With fluoroscopy an appropriate skin entry site was identified and anesthetized. A 20-gauge spinal needle was directed into the hip joint and contrast was injected to confirm the intra-articular position of the needle tip. 5 cc of 1% lidocaine was injected into the hip joint. The hip was exercised. 0 minutes and 36 seconds of fluoroscopy time was utilized during the procedure. There were no apparent complications. FINDINGS: Spot film demonstrates joint space narrowing of the hip. Preprocedure pain was 7 out of 10. Post procedure pain was 4 out of 10. Procedure was performed by: IMPRESSION: Technically successful fluoroscopy guided left hip injection for pain management. Procedure was performed by Bjorn Sanchez APRN, CNP. Big Machine Consultant: ADILENE Transcribe Date/Time: Nov 23 2024 11:56A Dictated by : BJORN SANCHEZ CNP This examination was interpreted and the report reviewed and electronically signed by: BJORN SANCHEZ CNP on Nov 23 2024 12:00PM EST [id number] [facility] [place] 11-01-2024 TORIBIO Telephone (DEYVI) MACEY CAMPBELL ([id number]) 1990 F Date Time Provider Department 11/01/24 MAGGY HAYES During your visit today, we recorded the following information about you: Edgar Altamirano RN 11/01/2024 12:37 PM Signed Called and left VM. Per Maggy's last office note pt is suppose to have image guided injection for her left hip however I think she was mistakenly scheduled the injection with Maggy- which she does not do. I will forward a request to front office assistant girls to forward to radiology. I left on VM that Radiology would be the one to call to schedule the appt with the patient. Edgar Altamirano RN 11/01/2024 12:39 PM Signed Pt needs to be scheduled for a image guided left hip injection. Can you please forward to radiology- thank you!! Krystyna Gipson 11/01/2024 12:45 PM Signed Order and patient information sent to asp/inj scheduling team. Allergies As of Date: 11/01/2024 Noted Allergy Reaction CLEOCIN (CLINDAMYCIN) 10/16/2021 2 - Rash SULFA (SULFONAMIDE ANTIBIOTICS) 12/13/2010 2 - Rash Date Reviewed: 10/10/2024 Reviewed by: Maggi Skinner MA - Fully Assessed Reason for Visit: Appointment [186] Prescriptions as of 11/01/2024 - predniSONE (DELTASONE) 10 mg tablet 6 tabs po day 1 and 2, then 5 tabs day 3 and 4, 4 tabs day 5 and 6, 3 tabs day 7 and 8, 2 tabs day 9 and 10, 1 tab day 11 and 12. - cyclobenzaprine (FLEXERIL) 10 mg tablet Take 1 tablet by mouth three times a day as needed for muscle spasm. - omeprazole (PRILOSEC) 40 mg capsule Take 1 capsule by mouth once daily. - rosuvastatin (CRESTOR) 5 mg tablet Take 2 tablets by mouth daily at bedtime. - spironolactone (ALDACTONE) 50 mg tablet Take 1 tablet by mouth two times a day. - amitriptyline (ELAVIL) 10 mg tablet Take 1 tablet by mouth daily at bedtime. - metFORMIN ER (GLUCOPHAGE XR) 500 mg 24 hr tablet Take 1 tablet by mouth daily with breakfast. - estradiol (ESTRACE) 1 mg tablet - rizatriptan (MAXALT ARMORING MACHINE OPERATOR) 10 mg disintegrating tablet Take 1 tablet by mouth as needed. May repeat in 2 hours if needed Problem List As Of Date 11/01/2024 Noted Resolved Gastroenteritis [K52.9] 12/13/2010 Abdominal pain, acute, right upper quadrant [R1*12/13/2010 Tachycardia [R00.0] 12/13/2010 Menstrual irregularity [N92.6] 12/13/2010 Infertility associated with anovulation [N97.0] 09/13/2012 PCOS (polycystic ovarian syndrome) [E28.2] 09/27/2012 12/31/2021 Pain, upper back [M54.9] 09/07/2013 01/21/2022 Pelvic pain in female [R10.2] 10/31/2013 Pain in joint, shoulder region [M25.519] 01/10/2015 01/21/2022 GERD without esophagitis [K21.9] 12/31/2021 Obesity, Class I, BMI 30-34.9 [E66.811] 12/31/2021 Tobacco use disorder [F17.200] 12/31/2021 Hyperglycemia [R73.9] 01/21/2022 Mixed hyperlipidemia [E78.2] 04/16/2022 Acute back pain with sciatica, left [M54.42] 06/28/2024 Pain of left hip joint [M25.552] 06/28/2024 Encounter Status:Closed by EDGAR ALTAMIRANO on 11/01/24 [facility] CNOVon 10-10-2024 CNOV Office Visit (JESSICA) MACEY CAMPBELL ([id number]) 1990 F Date Time Provider Department 10/10/24 10:30 AM MAGGY HAYES During your visit today, we recorded the following information about you: Maggi Skinner MA 10/10/2024 11:44 AM Signed AMB ROOMING INTAKE FLOWSHEET DATA Pain Pain Level: 7 Pain Location: Hip-Left Description: Aching, Cramping, Shooting, Stiffness, Tightness Duration Amount of Time: 6 Duration Units: Months Frequency: Continuous Intervention/Comfort measure: Medication, Reposition, Cold, Exercise, Heat, Massage Patient here today to discuss MRI results of the left hip. She continues having pain. Maggy Hayes PA-C 10/10/2024 11:44 AM Signed Maggy Hayes PA-C Department of Orthopaedics Orthopaedics [address] [place] [address] Dept: [phone] Dept October 10, 2024 CHIEF COMPLAINT: Established Patient and Follow Up of the Left Hip Ms. Macey Campbell is a 34 year old female who presents today to discuss the results of her left hip MRI. Patient started having pain which started insidiously this past April, she was participating in physical therapy but felt as though the pain is getting worse. She has tried multiple oral anti-inflammatories which are of no benefit. Patient continues to have persistent pain in the left buttock region which wraps around into the left groin. Pain does not radiate down the leg, denies locking or catching in the hip. Pain is worse when she is standing, squatting or climbing stairs. She reports some swelling in the groin region. 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 ASSESSMENT: M25.552 Pain of left hip (primary encounter diagnosis) PLAN: She did have some mild degeneration of the anterior labrum but no discernible tear in the hip labrum. Remainder of the MRI was normal, patient is extremely discouraged. We discussed doing an intra-articular lidocaine only injection just to see if this area of scuffed labrum may be causing her pain. I asked her to pay close attention to any improvement that she may receive following the injection. Hesitant to do a corticosteroid injection as her MRI is fairly normal. If she does get improvement with the lidocaine injection then I may consider referring her to sports. Ms. Macey Campbell was advised as to contrast therapies and/or to take analgesics/anti-infl ammatories as needed and all contraindications were reviewed. OBJECTIVE: Ms. Macey Campbell is a pleasant 34 year old in no apparent distress. Gen:LMP 08/04/2016 nl development, obese, no deformities ENT: Normocephalic, normal hearing, moist mucosa CV: Pulses:DP/PT= 2+ and symmetric, capillary refill < 2 secs, no peripheral edema/varicosities Skin: no rash, bruising or lesions. Good turgor. Psych: cooperative and appropriate, alert and oriented x 3, good mood and affect. Musculoskeletal: Musculoskeletal: HIP EXAM: Left: ROM: Extension: full extension Flexion: 100 degrees Internal Rotation: 25 degrees External Rotation: 30 degrees Abduction: 30 degrees Adduction: 30 degrees Strength: Pain with resisted abduction and Pain with resisted hip flexion Palpation: Tenderness over left greater trochanter and SI joint Log roll: non-painful. Straight leg raise: Negative Neurovascular Status: Sensation Intact, Moves foot and ankle up AND down, and 2+ dorsalis pedis Imaging: IMPRESSION: Normal MRI of the left hip. Big Machine Consultant: ADILENE Transcribe Date/Time: Sep 23 2024 9:02A Dictated by : RAISSA PALMER MD This examination was interpreted and the report reviewed and electronically signed by: GRACE REYES MD on Sep 23 2024 3:28PM EST Results-Findings * * *Final Report* * * DATE OF EXAM: Sep 23 2024 7:35AM [id number] - MRI HIP WO IVCON LT / PROCEDURE REASON: Pain of left hip * * * * Physician Interpretation * * * * EXAMINATION: MRI HIP WO IVCON LT HISTORY: Pain of left hip, tenderness. Concern for intra-articular issue versus piriformis syndrome. TECHNIQUE: Routine multiplanar MRI of the hip without contrast COMPARISON: Radiograph left hip 09/08/2024 RESULT: Hip joints: Left hip: Mild fraying with increased signal in the anterior labrum (7:16 for example). No discrete labral tear. The articular cartilage is preserved. There is no joint effusion. Large qdhnn-ug-cxxa images of the right hip are unremarkable. Evaluation of articular cartilage and labrum is limited. Bone Marrow: No fracture or suspicious marrow replacing lesions. Sacroiliac joints: Within normal limits. Pubic symphysis: Within normal limits. Tendons: The iliopsoas, hamstring, gluteal, and rectus femoris tendons are intact. Muscles: Within normal limits. Other: Hysterectomy Localizer images: No significant additional findings. Suppor (more content not included)... Normal [facility] MR Hip - left WO contraston 09-23-2024 IMPRESSION: Normal MRI of the left hip. Big Machine Consultant: ADILENE Transcribe Date/Time: Sep 23 2024 9:02A Dictated by : RAISSA PALMER MD This examination was interpreted and the report reviewed and electronically signed by: GRACE REYES MD on Sep 23 2024 3:28PM [facility] DIVISION OF RADIOLOGY * * *Final Report* * * DATE OF EXAM: Sep 23 2024 7:35AM WR 0206 - MRI HIP WO IVCON LT / PROCEDURE REASON: Pain of left hip * * * * Physician Interpretation * * * * EXAMINATION: MRI HIP WO IVCON LT HISTORY: Pain of left hip, tenderness. Concern for intra-articular issue versus piriformis syndrome. TECHNIQUE: Routine multiplanar MRI of the hip without contrast COMPARISON: Radiograph left hip 09/08/2024 RESULT: Hip joints: Left hip: Mild fraying with increased signal in the anterior labrum (7:16 for example). No discrete labral tear. The articular cartilage is preserved. There is no joint effusion. Large clont-dm-ilok images of the right hip are unremarkable. Evaluation of articular cartilage and labrum is limited. Bone Marrow: No fracture or suspicious marrow replacing lesions. Sacroiliac joints: Within normal limits. Pubic symphysis: Within normal limits. Tendons: The iliopsoas, hamstring, gluteal, and rectus femoris tendons are intact. Muscles: Within normal limits. Other: Hysterectomy Localizer images: No significant additional findings. DIVISION OF RADIOLOGY Provider, [facility] - 09/23/2024 * * *Final Report* * * DATE OF EXAM: Sep 23 2024 7:35AM WR 0206 - MRI HIP WO IVCON LT / PROCEDURE REASON: Pain of left hip * * * * Physician Interpretation * * * * EXAMINATION: MRI HIP WO IVCON LT HISTORY: Pain of left hip, tenderness. Concern for intra-articular issue versus piriformis syndrome. TECHNIQUE: Routine multiplanar MRI of the hip without contrast COMPARISON: Radiograph left hip 09/08/2024 RESULT: Hip joints: Left hip: Mild fraying with increased signal in the anterior labrum (7:16 for example). No discrete labral tear. The articular cartilage is preserved. There is no joint effusion. Large unvnx-qw-usmf images of the right hip are unremarkable. Evaluation of articular cartilage and labrum is limited. Bone Marrow: No fracture or suspicious marrow replacing lesions. Sacroiliac joints: Within normal limits. Pubic symphysis: Within normal limits. Tendons: The iliopsoas, hamstring, gluteal, and rectus femoris tendons are intact. Muscles: Within normal limits. Other: Hysterectomy Localizer images: No significant additional findings. IMPRESSION IMPRESSION: Normal MRI of the left hip. Big Machine Consultant: ADILENE Transcribe Date/Time: Sep 23 2024 9:02A Dictated by : RAISSA PALMER MD This examination was interpreted and the report reviewed and electronically signed by: GRACE REYES MD on Sep 23 2024 3:28PM EST [facility] Radiology Study observation (narrative) [facility] MR Hip - left WO contrastOrd ered By: [facility] Provider on 09-23-2024 [facility] MRI HIP WO IVCON LTon 2023 MRI HIP WO IVCON LT * * *Final Report* * * DATE OF EXAM: Sep 23 2024 7:35AM WRM 0206 - MRI HIP WO IVCON LT / PROCEDURE REASON: Pain of left hip * * * * Physician Interpretation * * * * EXAMINATION: MRI HIP WO IVCON LT HISTORY: Pain of left hip, tenderness. Concern for intra-articular issue versus piriformis syndrome. TECHNIQUE: Routine multiplanar MRI of the hip without contrast COMPARISON: Radiograph left hip 09/08/2024 RESULT: Hip joints: Left hip: Mild fraying with increased signal in the anterior labrum (7:16 for example). No discrete labral tear. The articular cartilage is preserved. There is no joint effusion. Large fprsd-tm-insj images of the right hip are unremarkable. Evaluation of articular cartilage and labrum is limited. Bone Marrow: No fracture or suspicious marrow replacing lesions. Sacroiliac joints: Within normal limits. Pubic symphysis: Within normal limits. Tendons: The iliopsoas, hamstring, gluteal, and rectus femoris tendons are intact. Muscles: Within normal limits. Other: Hysterectomy Localizer images: No significant additional findings. IMPRESSION: Normal MRI of the left hip. Big Machine Consultant: ADILENE Transcribe Date/Time: Sep 23 2024 9:02A Dictated by : RAISSA PALMER MD This examination was interpreted and the report reviewed and electronically signed by: GRACE REYES MD on Sep 23 2024 3:28PM EST [id number] Normal [facility] CNOVon 09-20-2024 CNOV Office Visit (FAMPWS) MACEY CAMPBELL ([id number]) 1990 F Date Time Provider Department 09/20/24 12:00 PM [facility] During your visit today, we recorded the following information about you: Temperature Pulse Respiration Blood pressure 97.8 degrees 96/minute 16/minute 126/80 Weight 82.6 kg Christian Valdes PA-C 09/20/2024 12:13 PM Signed 09/20/2024 Patient presents with: Ear Problem: Pain in right ear x 2 days worsening SUBJECTIVE: This is a 34 year old that is here today for Complaint(s) of right ear pain x 2 days. Started itchy and irritated, and then developed pain. Described as a more deep pain. No recent swimming. No recent URI symptoms. Denies fever/chills, tinnitus, dizziness, nasal congestion, cough. PAST MEDICAL HISTORY Diagnosis Date GERD without esophagitis 12/31/2021 Obesity, Class I, BMI 30-34.9 12/31/2021 PCOS (polycystic ovarian syndrome) Tobacco use disorder 12/31/2021 ALLERGIES Cleocin [Clindamycin] and Sulfa (Sulfonamide Antibiotics) MEDICATIONS Current Outpatient Medications Medication Sig omeprazole (PRILOSEC) 40 mg capsule Take 1 capsule by mouth once daily. rosuvastatin (CRESTOR) 5 mg tablet Take 2 tablets by mouth daily at bedtime. spironolactone (ALDACTONE) 50 mg tablet Take 1 tablet by mouth two times a day. amitriptyline (ELAVIL) 10 mg tablet Take 1 tablet by mouth daily at bedtime. metFORMIN ER (GLUCOPHAGE XR) 500 mg 24 hr tablet Take 1 tablet by mouth daily with breakfast. estradiol (ESTRACE) 1 mg tablet rizatriptan (MAXALT ARMORING MACHINE OPERATOR) 10 mg disintegrating tablet Take 1 tablet by mouth as needed. May repeat in 2 hours if needed predniSONE (DELTASONE) 10 mg tablet 6 tabs po day 1 and 2, then 5 tabs day 3 and 4, 4 tabs day 5 and 6, 3 tabs day 7 and 8, 2 tabs day 9 and 10, 1 tab day 11 and 12. (Patient not taking: Reported on 09/20/2024) cyclobenzaprine (FLEXERIL) 10 mg tablet Take 1 tablet by mouth three times a day as needed for muscle spasm. (Patient not taking: Reported on 09/20/2024) No current facility-administere d medications for this visit. SOCIAL HISTORY Social History Tobacco Use Smoking status: Every Day Current packs/day: 0.50 Average packs/day: 0.5 packs/day for 15.0 years (7.5 ttl pk-yrs) Types: Cigarettes Smokeless tobacco: Never Vaping Use Vaping status: Never Used Substance Use Topics Alcohol use: Yes Alcohol/week: 1.0 standard drink of alcohol Types: 1 Glasses of Wine (5oz) per week Comment: Social Drug use: No REVIEW OF SYSTEMS See HPI OBJECTIVE: BP 126/80 Pulse 96 Temp 36.6 ?C (97.8 ?F) Resp 16 Wt 82.6 kg (182 lb 1.6 oz) LMP 08/04/2016 SpO2 98% BMI 32.26 kg/m? APPEARANCE Well appearing, alert, in no acute distress, well-hydrated, well nourished. EYES PERRLA, conjunctiva and sclera normal. EARS External ears normal, canals clear. TMs normal NIYAH. Right with small effusion noted, posterior aspect. No erythema, bulging. Normal landmarks and light reflex. NOSE/SINUS Nares normal. Septum midline. Mucosa normal. No drainage or sinus tenderness. THROAT normal, no erythema NECK Supple, no adenopathy ASSESSMENT/PLAN: 1. Acute otalgia, right - ICD9: 388.70, ICD10: H92.01 Advise trial of flonase/sudafed Tylenol/motrin prn F/u if not resolving in 5-7 days, sooner if worsening Reviewed red flags and when to seek care sooner including fever >100, worsening pain The patient indicates understanding of these issues and agrees with the plan. Consider ENT referral if not resolving. Christian Valdes PA-C Allergies As of Date: 09/20/2024 Noted Allergy Reaction CLEOCIN (CLINDAMYCIN) 10/16/2021 2 - Rash SULFA (SULFONAMIDE ANTIBIOTICS) 12/13/2010 2 - Rash Date Reviewed: 09/20/2024 Reviewed by: Syl Sharp LPN - Fully Assessed Reason for Visit: Ear Problem [38] Cmt: Pain in right ear x 2 days worsening Primary Visit Diagnosis:Acute otalgia, right [H92.01] Prescriptions as of 09/20/2024 - predniSONE (DELTASONE) 10 mg tablet 6 tabs po day 1 and 2, then 5 tabs day 3 and 4, 4 tabs day 5 and 6, 3 tabs day 7 and 8, 2 tabs day 9 and 10, 1 tab day 11 and 12. - cyclobenzaprine (FLEXERIL) 10 mg tablet Take 1 tablet by mouth three times a day as needed for muscle spasm. - omeprazole (PRILOSEC) 40 mg capsule Take 1 capsule by mouth once daily. - rosuvastatin (CRESTOR) 5 mg tablet Take 2 tablets by mouth daily at bedtime. - spironolactone (ALDACTONE) 50 mg tablet Take 1 tablet by mouth two times a day. - amitriptyline (ELAVIL) 10 mg tablet Take 1 tablet by mouth daily at bedtime. - metFORMIN ER (GLUCOPHAGE XR) 500 mg 24 hr tablet Take 1 tablet by mouth daily with breakfast. - estradiol (ESTRACE) 1 mg tablet - rizatriptan (MAXALT ARMORING MACHINE OPERATOR) 10 mg disintegrating tablet Take 1 tablet by mouth as needed. May repeat in 2 hours if needed Problem List As Of Date 09/20/2024 Noted Re (more content not included)... Normal [facility] CNOVon 09-08-2024 CNOV Office Visit (ORMDNA) MACEY CAMPBELL ([id number]) 1990 F Date Time Provider Department 09/08/24 9:30 AM MAGGY HAYES During your visit today, we recorded the following information about you: Maggy Hayes PA-C 09/08/2024 10:32 AM Signed Maggy Hayes PA-C Department of Orthopaedics Orthopaedics [address] [place] [id number] Dept: [phone] September 08, 2024 CHIEF COMPLAINT: New and Pain of the Left Hip Ms. Macey Campbell is a 34 year old female who presents with pain in her left hip which started insidiously this past April. She was seen by her primary care provider and placed on an oral steroid, pain persist, patient was referred to PT. She has been participating in physical therapy for the past several months and feels as though things are getting worse. She also tried oral meloxicam which is of no benefit. She is having pain in her left buttock region which wraps around into the left groin region. Pain is worse when she is standing, squatting or climbing stairs. She feels as though she has some swelling in the groin region. X-rays of both the hip and lumbar spine are benign. 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 Denies any locking or catching in the hip. Pain does not radiate down the left leg. ASSESSMENT: M25.552 Pain of left hip (primary encounter diagnosis) PLAN: Patient has quite a bit of tightness in the left hip, I suspect she may have some piriformis syndrome. Will get an MRI of the hip to rule out any pathology or intra-articular issues. I would like to get her on a longer steroid taper in the meantime to help with pain and discomfort. She will follow-up with me in [place] to discuss MRI results. Will continue to monitor patient for Pain of left hip (primary encounter diagnosis), patient to schedule visit as per follow up discussed. Ms. Macey Campbell was advised as to contrast therapies and/or to take analgesics/anti-infl ammatories as needed and all contraindications were reviewed. OBJECTIVE: Ms. Macey Campbell is a pleasant 34 year old in no apparent distress. Gen:LMP 08/04/2016 nl development, obese, no deformities ENT: Normocephalic, normal hearing, moist mucosa CV: Pulses:DP/PT= 2+ and symmetric, capillary refill < 2 secs, no peripheral edema/varicosities Skin: no rash, bruising or lesions. Good turgor. Psych: cooperative and appropriate, alert and oriented x 3, good mood and affect. Musculoskeletal: HIP EXAM: Left: ROM: Extension: full extension Flexion: 100 degrees Internal Rotation: 25 degrees External Rotation: 30 degrees Abduction: 30 degrees Adduction: 30 degrees Strength: Pain with resisted abduction and Pain with resisted hip flexion Palpation: Tenderness over left greater trochanter and SI joint Log roll: non-painful. Straight leg raise: Negative Neurovascular Status: Sensation Intact, Moves foot and ankle up AND down, and 2+ dorsalis pedis Imaging: IMPRESSION: Negative left hip x-ray and AP view pelvis. Big Machine Consultant: ADILENE Transcribe Date/Time: Jan 26 2023 10:50A Dictated by : DEMETRICE SABA MD This examination was interpreted and the report reviewed and electronically signed by: DEMETRICE SABA MD on Jan 26 2023 10:54AM EST Results-Findings * * *Final Report* * * DATE OF EXAM: Jan 26 2023 10:27AM WOX 5351 - XR HIP 3V PELV+ AP/LAT LT / PROCEDURE REASON: Acute hip pain, left * * * * Physician Interpretation * * * * EXAM TITLE: XR HIP 3V PELV+ AP/LAT LT EXAM DATE/TIME: 01/26/2023 10:27 AM COMPARISON: None. CLINICAL INDICATION/HISTORY: Hip pain. TECHNIQUE: AP and frog lateral views of the left hip and AP view of the pelvis are presented. FINDINGS: No acute fractures or subluxations are noted in the left hip. The left hip joint space is maintained, without obvious osteophyte formation. The visualized pelvic bones are intact. There is no significant soft tissue swelling. IMPRESSION: Negative lumbar spine X-ray. Big Machine Consultant: ADILENE Transcribe Date/Time: May 06 2024 10:50A Dictated by : DEMETRICE SABA MD This examination was interpreted and the report reviewed and electronically signed by: DEMETRICE SABA MD on May 06 2024 10:50AM EST Results-Findings * * *Final Report* * * DATE OF EXAM: May 02 2024 8:48AM WOX 5228 - XR LUMBAR 3V AP/LAT/L5-S1 / PROCEDURE REASON: Acute left-sided low back pain with left-sided sciatica * * * * Physician Interpretation * * * * EXAM TITLE: XR LUMBAR 3V AP/LAT/L5-S1 EXAM DATE/TIME: 05/02/2024 8:48 AM COMPARISON: None. CLINICAL INDICATION/HISTORY: Low back pain. TECHNIQUE: AP, lateral and cone down lateral views of the lumbar spine are presented. FINDINGS: There are five [id number]-[id number] lumbar vertebrae. No fracture or subluxations are noted. The disc spaces ar (more content not included)... [facility] XR HIP 3V PELV+ AP/LAT LTon 09-08-2024 XR HIP 3V PELV+ AP/LAT LT * * *Final Report* * * DATE OF EXAM: Sep 08 2024 8:45AM ISAAC 5351 - XR HIP 3V PELV+ AP/LAT LT / PROCEDURE REASON: [id number] * * * * Physician Interpretation * * * * EXAM(s): XR HIP 3V PELV+ AP/LAT LT HISTORY: Indication: Pain TECHNIQUE: Images: XR HIP 3V PELV+ AP/LAT LT Comparison: 01/26/2023. RESULT: Findings: Pelvis: No fractures or dislocations are seen. Mild degenerative changes L5-S1 bilaterally Moderate narrowing of both hip joints Left hip: No fractures or dislocations are seen. IMPRESSION: Findings as discussed under Results portion of report. Big Machine Consultant: ADILENE Transcribe Date/Time: Sep 08 2024 9:44A Dictated by : AMOL VROA DO This examination was interpreted and the report reviewed and electronically signed by: AMOL VORA DO on Sep 08 2024 9:44AM EST [id number] [facility] XR Pelvis and Hip - left AP and Lateral frogon 09-08-2024 IMPRESSION: Findings as discussed under Results portion of report. Big Machine Consultant: PSCB Transcribe Date/Time: Sep 08 2024 9:44A Dictated by : AMOL VORA DO This examination was interpreted and the report reviewed and electronically signed by: AMOL VORA DO on Sep 08 2024 9:44AM EST [facility] * * *Final Report* * * DATE OF EXAM: Sep 08 2024 8:45AM MDDelores 5351 - XR HIP 3V PELV+ AP/LAT LT / PROCEDURE REASON: [id number] * * * * Physician Interpretation * * * * EXAM(s): XR HIP 3V PELV+ AP/LAT LT HISTORY: Indication: Pain TECHNIQUE: Images: XR HIP 3V PELV+ AP/LAT LT Comparison: 01/26/2023. RESULT: Findings: Pelvis: No fractures or dislocations are seen. Mild degenerative changes L5-S1 bilaterally Moderate narrowing of both hip joints Left hip: No fractures or dislocations are seen. [facility] Provider, [facility] [place] - 09/08/2024 * * *Final Report* * * DATE OF EXAM: Sep 08 2024 8:45AM MDDelores 5351 - XR HIP 3V PELV+ AP/LAT LT / PROCEDURE REASON: [id number] * * * * Physician Interpretation * * * * EXAM(s): XR HIP 3V PELV+ AP/LAT LT HISTORY: Indication: Pain TECHNIQUE: Images: XR HIP 3V PELV+ AP/LAT LT Comparison: 01/26/2023. RESULT: Findings: Pelvis: No fractures or dislocations are seen. Mild degenerative changes L5-S1 bilaterally Moderate narrowing of both hip joints Left hip: No fractures or dislocations are seen. IMPRESSION IMPRESSION: Findings as discussed under Results portion of report. Big Machine Consultant: ADILENE Transcribe Date/Time: Sep 08 2024 9:44A Dictated by : AMOL VORA DO This examination was interpreted and the report reviewed and electronically signed by: AMOL VORA DO on Sep 08 2024 9:44AM EST [facility] Radiology Study observation (narrative) [facility] XR Pelvis and Hip - left AP and Lateral frogOrdered By: [facility] Provider on 09-08-2024 [facility] XR Lumbar spine 3 Viewson IMPRESSION: Negative lumbar spine X-ray. Big Machine Consultant: ADILENE Transcribe Date/Time: May 06 2024 10:50A Dictated by : DEMETRICE SABA MD This examination was interpreted and the report reviewed and electronically signed by: DEMETRICE SABA MD on May 06 2024 10:50AM EST [facility] * * *Final Report* * * DATE OF EXAM: May 02 2024 8:48AM WOX 5228 - XR LUMBAR 3V AP/LAT/L5-S1 / PROCEDURE REASON: Acute left-sided low back pain with left-sided sciatica * * * * Physician Interpretation * * * * EXAM TITLE: XR LUMBAR 3V AP/LAT/L5-S1 EXAM DATE/TIME: 05/02/2024 8:48 AM COMPARISON: None. CLINICAL INDICATION/HISTORY: Low back pain. TECHNIQUE: AP, lateral and cone down lateral views of the lumbar spine are presented. FINDINGS: There are five zav-cnx-dfsaeae lumbar vertebrae. No fracture or subluxations are noted. The disc spaces are well preserved. There is no significant osteophyte formation. [facility] Provider, [facility] [place] - 05/06/2024 * * *Final Report* * * DATE OF EXAM: May 02 2024 8:48AM WOX 5228 - XR LUMBAR 3V AP/LAT/L5-S1 / PROCEDURE REASON: Acute left-sided low back pain with left-sided sciatica * * * * Physician Interpretation * * * * EXAM TITLE: XR LUMBAR 3V AP/LAT/L5-S1 EXAM DATE/TIME: 05/02/2024 8:48 AM COMPARISON: None. CLINICAL INDICATION/HISTORY: Low back pain. TECHNIQUE: AP, lateral and cone down lateral views of the lumbar spine are presented. FINDINGS: There are five ssn-ovq-snpkbnv lumbar vertebrae. No fracture or subluxations are noted. The disc spaces are well preserved. There is no significant osteophyte formation. IMPRESSION IMPRESSION: Negative lumbar spine X-ray. Big Machine Consultant: PSCB Transcribe Date/Time: May 06 2024 10:50A Dictated by : DEMETRICE SABA MD This examination was interpreted and the report reviewed and electronically signed by: DEMETRICE SABA MD on May 06 2024 10:50AM EST [facility] XR Lumbar spine 3 ViewsOrder ed By: [facility] Provider on 05-06-2024 [facility] XR Lumbar spine 3 Viewson Radiology Study observation (narrative) [facility] ANES POSTPROC EVALon 024 ANES POSTPROC EVAL HNO ID: [id number] Author: HERLINDA ALMANZA MD Service: Anesthesiology Author Type: Anesthesiologist Type: Anesthesia Postprocedure Evaluation Filed: 02/08/2024 08:51 Note Text: POST ANESTHESIA EVALUATION NOTE : 1990 Procedure Summary Date: 02/08/24 Room / Location: [facility] Anesthesia Start: 723 Anesthesia Stop: 813 Procedures: EGD DIAGNOSTIC COLONOSCOPY DIAGNOSTIC Diagnosis: Gastroesophageal reflux disease, unspecified whether esophagitis present Migratory abdominal pain (Abdominal pain in the left lower quadrant) (Suspected gastro-esophageal reflux disease) Scheduled Providers: Vishnu Molina MD; Aakash Calvillo APRN.SUPERVISOR PAINT DEPARTMENT; Herlinda Almanza MD Responsible Provider: Herlinda Almanza MD Anesthesia Type: MAC ASA Status: 2 Anesthesia Type: MAC Last Vitals Vitals Value Taken Time BP 113/68 02/08/24 0830 Temp 36.2 ?C (97.2 ?F) 02/08/24 0808 HR SpO2 81 02/08/24 0808 Resp 21 02/08/24 0834 SpO2 99 % 02/08/24 0834 Vitals shown include unfiled device data. Post Anesthesia Patient Status Patient Evaluation: PACU. PACU/ICU Patient Condition: stable. Anticipated Disposition: phase 2 then home. Neurological Status: aware and responsive. Pulmonary Status: breathing comfortably on room air Airway Control: returned to baseline unsupported. Cardiovascular Status: stable. Pain Management: clinically adequate - multimodal analgesia pain management approach Postoperative Hydration: acceptable. Intraoperative Events: no significant anesthesia events Post Operative Nausea/Vomiting Status: no significant post operative nausea or vomiting Recommendation: continue current plan of care. Anesthesia Observations No Documentation SIGNATURE: Herlinda Almanza MD PATIENT NAME: Macey Campbell DATE: February 08, 2024 TIME: 8:51 AM CSN: [id number] [facility] ANES PRE-OPon 02-08-2024 ANES PRE-OP HNO ID: [id number] Author: HERLINDA ALMANZA MD Service: Anesthesiology Author Type: Anesthesiologist Type: Anesthesia Preprocedure Evaluation Filed: 02/08/2024 06:42 Note Text: ANESTHESIOLOGY DAY OF SURGERY NOTE : 1990 Procedure Information Date/Time: 02/08/24729 Scheduled providers: Vishnu Molina MD; Aakash Calvillo APRN.SUPERVISOR PAINT DEPARTMENT; Herlinda Almanza MD Procedures: EGD DIAGNOSTIC COLONOSCOPY DIAGNOSTIC Location: [facility] Estimated body mass index is 32.24 kg/m? as calculated from the following: Height as of this encounter: 160 cm (5' 3). Weight as of this encounter: 82.6 kg (182 lb). Most recent hematocrit and potassium results: Hematocrit 45.9 12/15/2023 Potassium 4.5 12/15/2023 Relevant Problems GI (+) GERD without esophagitis I - PHYSICAL EVALUATION AIRWAY Patient intubated: No. Tracheostomy tube not present Mallampati: II. TM distance: >3 FB. Neck ROM: full ROM without neurological symptoms. Mouth opening: adequate. Short neck: no. Thick neck: no DENTAL Dental findings: teeth intact. Additional exam findings: yes. CARDIOVASCULAR Rhythm: regular PULMONARY Breath sounds clear to auscultation. II - ANESTHESIA PLAN ASA Score: 2 Anesthetic Plan: MAC The patient is not a current smoker. NPO Status: adequate Beta Tony Monitoring Plan Monitoring plan: standard ASA. Post Procedure Analgesic Plan Postoperative analgesic plan: multimodal analgesia. Informed Consent Anesthetic risks, benefits, alternatives, personnel and consent discussed: yes. Patient / Responsible Libertarian agrees to proceed: yes Patient / Surrogate agrees to blood products: blood products not planned DNR status not reviewed with patient and/or family prior to surgery. Significant changes in the patient condition since the History and Physical, not otherwise documented in primary service progress note: no. Potential Anesthesia issues that may suggest increased risk of complications or contraindication to planned procedure: none. Vitals Value Taken Time BP 123/74 02/08/24618 Pulse 96 02/08/24618 Resp 16 02/08/24618 Temp 37.2 ?C (99 ?F) 02/08/24618 SpO2 95 % 02/08/24618 Outpatient Medications as of 02/08/2024 Medication Sig - omeprazole (PRILOSEC) 40 mg capsule Take 1 capsule by mouth once daily. - rosuvastatin (CRESTOR) 5 mg tablet Take 2 tablets by mouth daily at bedtime. - spironolactone (ALDACTONE) 50 mg tablet Take 1 tablet by mouth two times a day. - amitriptyline (ELAVIL) 10 mg tablet Take 1 tablet by mouth daily at bedtime. - metFORMIN ER (GLUCOPHAGE XR) 500 mg 24 hr tablet Take 1 tablet by mouth daily with breakfast. - estradiol (ESTRACE) 1 mg tablet - rizatriptan (MAXALT ARMORING MACHINE OPERATOR) 10 mg disintegrating tablet Take 1 tablet by mouth as needed. May repeat in 2 hours if needed Facility-Administere d Medications as of 02/08/2024 Medication Dose Route Frequency - lactated ringers iv infusion 30 mL/hr INTRAVENOUS CONTINUOUS I have interviewed and examined the patient. I have reviewed the medical record and/or the pre-anesthesia evaluation, pertinent labs, and test results. This contains updated information obtained within 48 hours of Surgery/Procedure. SIGNATURE: Herlinda Almanza MD PATIENT NAME: Macey Campbell DATE: February 08, 2024 TIME: 6:41 AM CSN: [id number] [facility] Colonoscopyon 02-08-2024 Colonoscopy [facility] Gastrointestinal Endoscopy Patient Name: Macey Campbell Procedure Date: 02/08/2024 7:45 AM Date of : 1990 Admit Type: Outpatient Age: 33 Room: [facility] Gender: Female Note Status: Finalized Attending MD: Vishnu Molina MD, [id number] Procedure: Colonoscopy Indications: Abdominal pain in the left lower quadrant Providers: Vishnu Molina MD Patient Profile: This is a 33 year old female. Refer to note in patient chart for documentation of history and physical. Last Colonoscopy: none. The patient's first colonoscopy is today. Referring Physician: Vishnu Molina MD (Referring MD) Medicines: Monitored Anesthesia Care Complications: No immediate complications. Requesting Provider: Procedure: Pre-Anesthesia Assessment: - Prior to the procedure, a History and Physical was performed, and patient medications and allergies were reviewed. The patient is competent. The risks and benefits of the procedure and the sedation options and risks were discussed with the patient. All questions were answered and informed consent was obtained. Patient identification and proposed procedure were verified by the physician, the nurse and the senior business consultant in the procedure room. Respiratory Examination: clear to auscultation. Prophylactic Antibiotics: The patient does not require prophylactic antibiotics. Prior Anticoagulants: The patient has taken no anticoagulant or antiplatelet agents. ASA Grade Assessment: II - A patient with mild systemic disease. After reviewing the risks and benefits, the patient was deemed in satisfactory condition to undergo the procedure. The anesthesia plan was to use monitored anesthesia care (MAC). Immediately prior to administration of medications, the patient was re-assessed for adequacy to receive sedatives. The heart rate, respiratory rate, oxygen saturations, blood pressure, adequacy of pulmonary ventilation, and response to care were monitored throughout the procedure. The physical status of the patient was re-assessed after the procedure. After I obtained informed consent, the scope was passed under direct vision. Throughout the procedure, the patient's blood pressure, pulse, and oxygen saturations were monitored continuously. The Colonoscope was introduced through the anus and advanced to the cecum, identified by the appendiceal orifice, ileocecal valve and palpation. The ileocecal valve, appendiceal orifice, and rectum were photographed. The colonoscopy was performed with ease. The patient tolerated the procedure well. The quality of the bowel preparation was good. Scope Withdrawal Time: 0 hours 5 minutes 13 seconds Moderate Sedation: MAC anesthesia was administered by the anesthesia team. Total Procedure Duration: 0 hours 10 minutes 40 seconds Findings: The perianal and digital rectal examinations were normal. The entire examined colon appeared normal on direct and retroflexion views. Impression: - The entire examined colon is normal on direct and retroflexion views. - No specimens collected. Recommendation: - Discharge patient to home. - Resume previous diet. - Continue present medications. - Repeat colonoscopy in 10 years for screening purposes. - Telephone my office for pathology results in 1 week. - Patient has a contact number available for emergencies. The signs and symptoms of potential delayed complications were discussed with the patient. Return to normal activities tomorrow. Written discharge instructions were provided to the patient. Procedure Code(s): --- Professional --- 03623, Colonoscopy, flexible; diagnostic, including collection of specimen(s) by brushing or washing, when performed (separate procedure) CPT copyright 2020 [employer]. All rights reserved. The codes documented in this report are preliminary and upon sterilizer machine operator review may be revised to meet current compliance requirements. Attending Participation: I was present and participated during the entire procedure, including non-chapa portions, and during the administration and monitoring of Moderate Sedation. Scope In: 7:50:03 AM Scope Out: 8:00:43 AM MD Vishnu Chi MD 02/08/2024 8:10:07 AM This report has been signed electronically by Vishnu Molina MD Number of Addenda: 0 Note Initiated On: 02/08/2024 7:45 AM Estimated Blood Loss: Estimated blood loss: none. Normal [facility] EGD Study observation Narrat iveon 02-08-2024 [facility] Flexible sigmoidoscopy study on 02-08-2024 [facility] HISTORY PHYSICALon HISTORY PHYSICAL HNO ID: [id number] Author: VISHNU MOLINA MD Service: General Surgery Author Type: Physician Type: H&P Filed: 02/08/2024 06:58 Note Text: HISTORY AND PHYSICAL Macey Campbell 1990 REFERRING PHYSICIAN: Self CHIEF COMPLAINT: Follow Up (LLQ pain) HPI: The patient is a 32 year old female referred for endoscopy. Macey is a patient I am following for, multiple abdominal complaints. The patient was initially referred to me in October 2022 for what I felt was more somatic abdominal pain for question of diagnostic laparoscopy. At that time my office note included: Patient has a complex history of multiple gynecologic procedures. She had a diagnostic laparoscopy in 2014 for rule out endometriosis which at the time was felt to be negative but later she had a laparoscopic hysterectomy for what turned out to be endometriosis. She had had an ectopic tubal resulting in excision of her right tube prior to that and has had 2 laparoscopic oophorectomies. The patient notes left lower quadrant pain. Is been present approximately the past 6 months. He denies pain after eating. She notes no obstructive type symptoms. She notes pain after motion or movement more in this left lower quadrant. The pain is relatively localized. She had been referred to both gynecology and seen general surgeon at [facility]-Dr. Andre Krishnamurthy who did not feel her pain was due to adhesions do not recommend laparoscopic exploration. She had been seen at both [place] and [facility]. Abdominal exam: Soft, actively localized tenderness in the left lower quadrant just medial inferior to one of her previous port site incisions with no palpable masses. No hepatosplenomegaly. No palpable hernias. Office-based ultrasound was performed which demonstrated no hernias at the site. I recommended attempt at nerve injection to see if this improves her symptoms and she agreed to this attempt. This did not provide any pain relief. IMPRESSION: Localized left lower quadrant pain, no obvious hernia, feel most likely somatic pain however failed to improve with attempted nerve block PLAN: I agree with prior evaluations a diagnostic laparoscopy is not likely to be effective for this patient given her symptoms. I am disappointed that my nerve block did not seem to improve her symptoms. I would however recommend referral to pain management locally for attempt at nerve block performed by them. She has to be referred to [facility]. I will refer the patient to Dr. Paulino. CT scan was sent to the clinic system which I reviewed and saw no specific abnormalities that change my above impression. The patient again followed up she is now noting more issues in her left lateral to upper area. She notes that the pain does occur more after than after eating. She does note a degree of reflux. She also notes that her pain is worse after episodes of constipation. She tried a laxative which unfortunately made her more uncomfortable. Macey has not undergone prior endoscopy. The patient is being seen by me today at the request of Radha Garduno my opinion and advice regarding some changes in the character of her symptoms and for consideration for endoscopy. PAST MEDICAL HISTORY PAST MEDICAL HISTORY Diagnosis Date GERD without esophagitis 12/31/2021 Obesity, Class I, BMI 30-34.9 12/31/2021 PCOS (polycystic ovarian syndrome) Tobacco use disorder 12/31/2021 PAST SURGICAL HISTORY PAST SURGICAL HISTORY Procedure Laterality Date LAPS ABD PRTMANDOMENTUM DX W/WO SPEC BR/WA SPX 2014 Laparoscopy - for r/o endometriosis, foung to have a cyst PT ED OBSTETRICS AND GYNECOLOGY N/A 12/2019 laparoscopic hysterectomy - for endometriosis - Dr. Shelley REMOVAL OF OVARY(S) Right 10/24/2020 ovarian torsion REMOVAL OF OVARY(S) Left 12/2020 Dr Jo SALPINGECTOMY Right 12/27/2016 laparoscopic Right salpingectomy- ECTOPIC CURRENT MEDICATIONS Current Outpatient Medications Medication Sig hyoscyamine sublingual (LEVSIN SL) 0.125 mg Take 1-2 tablets under tongue every 4hrs as needed. Max 12 tabs per day. atorvastatin (LIPITOR) 20 mg tablet Take 1 tablet by mouth daily at bedtime. For cholesterol. amitriptyline (ELAVIL) 10 mg tablet Take 1 tablet by mouth daily at bedtime. rizatriptan (MAXALT ARMORING MACHINE OPERATOR) 10 mg disintegrating tablet Take 1 tablet by mouth as needed. May repeat in 2 hours if needed No current facility-administere d medications for this visit. ALLERGIES: Cleocin [Clindamycin] and Sulfa (Sulfonamide Antibiotics) PERSONAL HISTORY: SOCIAL HISTORY Social History Tobacco Use Smoking status: Every Day Packs/day: 0.50 Years: 15.00 Pack years: 7.50 Types: Cigarettes Smokeless tobacco: Never Vaping Use Vaping Use: Never used Substance Use Topics Alcohol use: Yes Alcohol/week: 1.0 standard drink Types: 1 Glasses of Wine (5oz) per week Comment: Social Drug use: No FAMI (more content not included)... [facility] SURGICAL PATHOLOGYon 024 CASE REPORT [facility] Comment on above: Order Comment: Kate zurita Type: TISSUE SPECIMEN Ordering Facility: [facility] Address: [address] [place] [address] Result Comment: Surg ica Pathology Report Case: [id number] Authorizing Provider: Vishnu Molina MD Collected: 02/08/2024 07:42 AM Ordering Location: [facility] Received: 02/08/2024 09:36 AM Pathologist: Esha De Oliveira MD Specimens: A) - ANTRUM (STOMACH) BIOPSY B) - ESOPHAGUS LOWER BIOPSY C) - ESOPHAGUS MID BIOPSY Performed By: #### S #### [facility] CLIA [id number] [address] [place] [address] [place] [facility] CLIA [id number] [address] [place], [place] [address] OF [place] DIAGNOSIS COMMENT A. No microorganisms morphologically compatible with Helicobacter Pylori like organisms are identified by routine H AND E-stained sections. [facility] Comment on above: Order Comment: Kate zurita Type: TISSUE SPECIMEN Ordering Facility: [facility] Address: [address] [place] [address] Performed By: #### S #### [facility] CLIA [id number] [address] [place] [facility] CLIA [id number] [address] [place] [address] OF [place] FINAL DIAGNOSIS Normal [facility] Comment on above: Order Comment: Speci men Type: TISSUE SPECIMEN Ordering Facility: [facility] Address: [address] [place] [address] Result Comment: A. S tomach, antrum, biopsy: - Gastric antral type mucosa with no pathologic diagnostic abnormality; see comment. B. Esophagus, lower, biopsy: - Squamous mucosa and gastric mucosa with intestinal metaplasia compatible with Wang's esophagus; negative for dysplasia. C. Esophagus, mid, biopsy: - Squamous mucosa with no pathologic diagnostic abnormality. Performed By: #### S #### [facility] CLIA [id number] [place] [address] [place] [facility] CLIA [id number] [address] [place] [address] [place] FINAL PERFORMING LAB [facility] Comment on above: Order Comment: Speci men Type: TISSUE SPECIMEN Ordering Facility: [facility] Address: [address] [place] [address] Result Comment: Diag nostic interpretation performed at [facility], [place] [address] CLIA# [id number] Quote Clerk: Esha De Oliveira M.D. Performed By: #### S #### [facility] CLIA [id number] [place] [address] [place] [facility] CLIA [id number] [address] [place] [address] OF [place] GROSS DESCRIPTION [facility] Comment on above: Order Comment: Speci men Type: TISSUE SPECIMEN Ordering Facility: [facility] Address: [address] [place] [address] Result Comment: A. A NTRUM (STOMACH) BIOPSY Received in formalin is one piece of evans, soft tissue measuring 0.3 x 0.2 x 0.1 cm. Totally submitted in one cassette. B. ESOPHAGUS LOWER BIOPSY Received in formalin are multiple pieces of evans, soft tissue aggregating to 0.9 x 0.2 x 0.2 cm. Totally submitted in one cassette. C. ESOPHAGUS MID BIOPSY Received in formalin is one piece of evans-white, soft tissue measuring 0.5 x 0.2 x 0.1 cm. Totally submitted in one cassette. Gross examination performed at [facility], [address] [place] [address] February 08, 2024 3:46 PM Performed By: #### S #### [facility] CLIA [id number] [address] [place] [address] [place] [facility] CLIA [id number] [address] [place] [address] OF [facility] Upper GI endoscopyon 024 Upper GI endoscopy [facility] Gastrointestinal Endoscopy Patient Name: Macey Campbell Procedure Date: 02/08/2024 7:12 AM Date of : 1990 Admit Type: Outpatient Age: 33 Room: [facility] Gender: Female Note Status: Finalized Attending MD: Vishnu Molina MD, [id number] Procedure: Upper GI endoscopy Indications: Suspected gastro-esophageal reflux disease Providers: Vishnu Molina MD Patient Profile: This is a 33 year old female. Refer to note in patient chart for documentation of history and physical. Referring Physician: Vishnu Molina MD (Referring MD) Medicines: Monitored Anesthesia Care Complications: No immediate complications. Requesting Provider: Procedure: Pre-Anesthesia Assessment: - Prior to the procedure, a History and Physical was performed, and patient medications and allergies were reviewed. The patient is competent. The risks and benefits of the procedure and the sedation options and risks were discussed with the patient. All questions were answered and informed consent was obtained. Patient identification and proposed procedure were verified by the physician, the nurse and the senior business consultant in the procedure room. Mental Status Examination: alert and oriented. Airway Examination: normal oropharyngeal airway and neck mobility. Respiratory Examination: clear to auscultation. Prophylactic Antibiotics: The patient does not require prophylactic antibiotics. Prior Anticoagulants: The patient has taken no anticoagulant or antiplatelet agents. ASA Grade Assessment: II - A patient with mild systemic disease. After reviewing the risks and benefits, the patient was deemed in satisfactory condition to undergo the procedure. The anesthesia plan was to use monitored anesthesia care (MAC). Immediately prior to administration of medications, the patient was re-assessed for adequacy to receive sedatives. The heart rate, respiratory rate, oxygen saturations, blood pressure, adequacy of pulmonary ventilation, and response to care were monitored throughout the procedure. The physical status of the patient was re-assessed after the procedure. After obtaining informed consent, the endoscope was passed under direct vision. Throughout the procedure, the patient's blood pressure, pulse, and oxygen saturations were monitored continuously. The Endoscope was introduced through the mouth, and advanced to the jejunum. The upper GI endoscopy was accomplished without difficulty. The patient tolerated the procedure well. Moderate Sedation: MAC anesthesia was administered by the anesthesia team. Total Procedure Duration: 0 hours 18 minutes 25 seconds Findings: The examined jejunum was normal. The examined duodenum was normal. Localized mild inflammation characterized by erythema and friability was found in the gastric antrum. Biopsies were taken with a cold forceps for histology. A medium-sized hiatal hernia was present. Moderately severe esophagitis with no bleeding was found in the lower third of the esophagus. Biopsies were taken with a cold forceps for histology. The middle third of the esophagus was normal. Biopsies were taken with a cold forceps for histology. Impression: - Normal examined jejunum. - Normal examined duodenum. - Gastritis. Biopsied. - Medium-sized hiatal hernia. - Moderately severe reflux esophagitis with no bleeding. Rule out Wang's esophagus. Biopsied. - Normal middle third of esophagus. Biopsied. Recommendation: - Discharge patient to home. - Resume previous diet. - Continue present medications. Procedure Code(s): --- Professional --- 37556, Esophagogastroduoden oscopy, flexible, transoral; with biopsy, single or multiple CPT copyright 2020 [employer]. All rights reserved. The codes documented in this report are preliminary and upon sterilizer machine operator review may be revised to meet current compliance requirements. Attending Participation: I was present and participated during the entire procedure, including non-chapa portions, and during the administration and monitoring of Moderate Sedation. Scope In: 7:26:55 AM Scope Out: 7:45:20 AM MD Vishnu Chi MD 02/08/2024 8:07:51 AM This report has been signed electronically by Vishnu Molina MD Number of Addenda: 0 Note Initiated On: 02/08/2024 7:12 AM Estimated Blood Loss: Estimated blood loss: none. Normal [facility] Absolute lymphocyte countOrd ered By: Andre Phan on 01-20-2024 Lymphocytes Auto (Unsp spec) [#/Vol] 4.82 10*3/uL 0.83-4.51 [facility] Activated partial thrombopla stin time (aPTT) in platelet poor plasma by coagulation aOrdered By: Andre Phan on 01-20-2024 aPTT Coag (PPP) [Time] 29.2 s 24.1-36.2 [facility] Automated lymphocyte count a s percentage of total leukocytesOrdered By: Andre Phan on 01-20-2024 Lymphocytes/100 WBC Auto (Unsp spec) 35.5 % 19-41 [facility] Basophil percentageOrdered B y: Andre Phan on 01-20-2024 Basophils/100 WBC (Bld) 0.7 % 0-1 [facility] Chloride [Moles/Vol] 104 mmol/L 98-107 [facility] Eosinophils/100 WBC (Bld) 3.5 % 0-5 [facility] Glucose [Mass/Vol] 91 mg/dL 74-106 [facility] Hemoglobin (Bld) [Mass/Vol] 14.2 g/dL 12.0-15.0 [facility] Monocytes/100 WBC (Bld) 5.1 % 0-10 [facility] Neutrophils (Bld) [#/Vol] 7.4 10*3/uL 2.0-7.7 [facility] Neutrophils/100 WBC (Bld) 54.5 % 47-70 [facility] Potassium [Moles/Vol] 3.7 mmol/L 3.5-5.1 [facility] Sodium [Moles/Vol] 137 mmol/L 136-145 [facility] WBC (Bld) [#/Vol] 13.6 10*3/uL 4.4-11.0 [facility] Determination of erythrocyte mean corpuscular volume (MCV)Ordered By: Andre Phan on 01-20-2024 MCV (RBC) [Entitic vol] 91.4 fL 81-99 [facility] Erythrocyte distribution wid th ratioOrdered By: Andre Phan on 01-20-2024 Erythrocyte distribution width (RBC) [Ratio] 13.3 % 11.6-14.6 [facility] Erythrocyte distribution wid th standard deviationOrdered By: Andre Phan on 01-20-2024 Erythrocyte distribution width (RBC) [Entitic vol] 44.5 fL 35.1-43.9 [facility] Hematocrit Auto (Bld) [Volum e fraction]Ordered By: Andre Phan on 01-20-2024 Hematocrit (Bld) [Volume fraction] 42.3 % 37-47 [facility] Immature granulocytes/100 WB C Auto (Bld)Ordered By: Andre Phan on 01-20-2024 Immature granulocytes/100 WBC (Bld) 0.700 % 0.0-0.9 [facility] Comment on above: IG% - Immature Granu locytes (promyelocytes, myelocytes and metamyelocytes) > 1% indicates that a LEFT SHIFT is Present. Laboratory - Chemistry and C hemistry - challengeOrdered By: Andre Phan on 01-20-2024 CO2 [Moles/Vol] 26.0 mmol/L 21.0-32.0 [facility] Urea nitrogen/Creatinine [Mass ratio] 16.2 mg/mg 10-20 [facility] Laboratory - CoagulationOrde red By: Andre Phan on 01-20-2024 INR Coag (Bld) [Relative time] 1.0 {INR} [facility] PT Coag (PPP) [Time] 13.6 s 11.7-14.9 [facility] Laboratory - Hematology and Cell countsOrdered By: Andre Phan on 01-20-2024 MCH (RBC) [Entitic mass] 30.7 pg 27.0-32.0 [facility] MCHC (RBC) [Mass/Vol] 33.6 g/dL 32-36 [facility] Nucleated RBC/100 WBC (Bld) [Ratio] 0 % 0-5 [facility] Platelet mean volume (Bld) [Entitic vol] 9.9 fL 6.2-12.0 [facility] Platelets (Bld) [#/Vol] 384 10*3/uL 150-450 [facility] No Panel InformationOrdered By: Andre Phan on 01-20-2024 D-Dimer Quantitative (PE/DVT) 0.42 FEU/ug/m 0.27-0.49 [facility] Comment on above: NORMAL D-Dimer level (<0.50) indicates no DVT or PE. Estimated Creatinine Clearance Calc 105.63 ml/min [facility] Estimated GFR (MDRD) Amer 114 mL/min >60 [facility] Comment on above: GFR Calc Estimated GFR (MDRD) Non-Af Amer 94 mL/min >60 [facility] Comment on above: Non- GFR Calc Troponin I High Sensitivity 3 pg/mL 3.0-54.0 [facility] Comment on above: Please Note: New Velia t Units and Gender Specific Reference Ranges. For more information see Policy Stat Procedure [place] High Sensitivity Troponin (TNIH) and attachments. RBC Auto (Bld) [#/Vol]Ordere d By: Andre Phan on 01-20-2024 RBC (Bld) [#/Vol] 4.63 10*6/uL 4.2-5.4 [facility] Serum or plasma calcium cirilo urement (mass/volume)Ordered By: Andre Phan on 01-20-2024 Calcium [Mass/Vol] 9.8 mg/dL 8.5-10.1 [facility] Serum or plasma creatinine m easurement (mass/volume)Ordered By: Andre Phan on 01-20-2024 Creatinine [Mass/Vol] 0.74 mg/dL 0.55-1.02 [facility] Comment on above: The validity of the calculated GFR & GFRAA in patients over 70 years has not been determined. Clinical correlation is essential. Serum or plasma urea nitroge n measurement (mass/volume)Ordered By: Andre Phan on 01-20-2024 Urea nitrogen [Mass/Vol] 12 mg/dL 7-18 [facility] Thin prep Papanicolaou smear with manual screeningOrdered By: Andre Phan on 01-20-2024 Thin prep Papanicolaou smear with manual screening 7 5-15 [facility] CBC W Auto Differential pane l (Bld)on 12-15-2023 Basophils (Bld) [#/Vol] 0.12 10*3/uL High <0.11 k/uL [facility] Basophils/100 WBC (Bld) 1.0 % [facility] Differential cell count method Nom (Bld) Auto [facility] Eosinophils (Bld) [#/Vol] 0.37 10*3/uL <0.46 k/uL [facility] Eosinophils/100 WBC (Bld) 3.1 % [facility] Erythrocyte distribution width (RBC) [Ratio] 12.9 % 11.5 - 15.0 % [facility] Hematocrit (Bld) [Volume fraction] 45.9 % 36.0 - 46.0 % [facility] Hemoglobin (Bld) [Mass/Vol] 15.2 g/dL 11.5 - 15.5 g/dL [facility] Immature granulocytes (Bld) [#/Vol] 0.05 10*3/uL <0.10 k/uL [facility] Immature granulocytes/100 WBC (Bld) 0.4 % [facility] Lymphocytes (Bld) [#/Vol] 3.42 10*3/uL 1.00 - 4.00 k/uL [facility] Lymphocytes/100 WBC (Bld) 28.4 % [facility] MCH (RBC) [Entitic mass] 30.6 pg 26.0 - 34.0 pg [facility] MCHC (RBC) [Mass/Vol] 33.1 g/dL 30.5 - 36.0 g/dL [facility] MCV (RBC) [Entitic vol] 92.5 fL 80.0 - 100.0 fL [facility] Monocytes (Bld) [#/Vol] 0.66 10*3/uL <0.87 k/uL [facility] Monocytes/100 WBC (Bld) 5.5 % [facility] Neutrophils (Bld) [#/Vol] 7.41 10*3/uL 1.45 - 7.50 k/uL [facility] Neutrophils/100 WBC (Bld) 61.6 % [facility] Nucleated RBC (Bld) [#/Vol] <0.01 k/uL [facility] Nucleated RBC/100 WBC (Bld) [Ratio] 0.0 /100 WBC [facility] Platelet mean volume (Bld) [Entitic vol] 10.6 fL 9.0 - 12.7 fL [facility] Platelets (Bld) [#/Vol] 348 10*3/uL 150 - 400 k/uL [facility] RBC (Bld) [#/Vol] 4.96 10*6/uL 3.90 - 5.2 0 m/uL [facility] WBC (Bld) [#/Vol] 12.03 10*3/uL High 3.70 - 11 .00 k/uL [facility] No Panel Informationon 12-15 [facility] XR Knee - left 4 Viewson IMPRESSION: Negative left knee. Big Machine Consultant: ADILENE Transcribe Date/Time: Nov 26 2023 5:35P Dictated by : JOI POE MD This examination was interpreted and the report reviewed and electronically signed by: JOI POE MD on Nov 26 2023 5:36PM [facility] DIVISION OF RADIOLOGY * * *Final Report* * * DATE OF EXAM: Nov 26 2023 5:18PM WOX 5202 - XR KNEE 4V AP/PA BOTH+LAT/PREM LT / PROCEDURE REASON: Acute pain of left knee * * * * Physician Interpretation * * * * LEFT KNEE X-RAY SERIES CLINICAL HISTORY: Acute pain of left knee TECHNIQUE: Bilateral AP, intercondylar and sunrise views and a left lateral view COMPARISON: None available. RESULT: No fracture or malalignment. Joint spaces and articular surfaces are preserved. No left knee joint effusion. DIVISION OF RADIOLOGY Provider, [facility] - 11/26/2023 * * *Final Report* * * DATE OF EXAM: Nov 26 2023 5:18PM WOX 5202 - XR KNEE 4V AP/PA BOTH+LAT/PREM LT / PROCEDURE REASON: Acute pain of left knee * * * * Physician Interpretation * * * * LEFT KNEE X-RAY SERIES CLINICAL HISTORY: Acute pain of left knee TECHNIQUE: Bilateral AP, intercondylar and sunrise views and a left lateral view COMPARISON: None available. RESULT: No fracture or malalignment. Joint spaces and articular surfaces are preserved. No left knee joint effusion. IMPRESSION IMPRESSION: Negative left knee. Big Machine Consultant: PSCB Transcribe Date/Time: Nov 26 2023 5:35P Dictated by : JOI POE MD This examination was interpreted and the report reviewed and electronically signed by: JOI POE MD on Nov 26 2023 5:36PM EST [facility] Radiology Study observation (narrative) [facility] XR Knee - left 4 ViewsOrdere d By: [facility] Provider on 11-26-2023 [facility] UA DIP, URINE (POC)on 2022 BILIRUBIN UA (POCT) Negative Negative [facility] CLARITY UA (POCT) Clear [facility] COLOR UA (POCT) Yellow [facility] GLUCOSE UA (POCT) Negative Negative mg/dL [facility] HEMOGLOBIN/BLOOD UA (POCT) Negative Negative [facility] KETONE UA (POCT) Negative Negative mg/dL [facility] LEUKOCYTES UA (POCT) Negative Negative [facility] NITRITE UA (POCT) Negative Negative [facility] PH UA (POCT) 5.5 4.5 - 8.0 [facility] Protein Ql (U) Negative Negative mg/dL [facility] SPECIFIC GRAVITY UA (POCT) 1.025 1.005 - 1.030 [facility] UROBILINOGEN UA (POCT) 0.2 E.U./dL Domenica l E.U./dL [facility] XR HIP GENERAL 3V PELV/AP/LA T LEFTon 01-26-2023 [facility] XR Pelvis and Hip - left AP and Lateral frogon 01-26-2023 IMPRESSION: Negative left hip x-ray and AP view pelvis. Big Machine Consultant: PSCB Transcribe Date/Time: Jan 26 2023 10:50A Dictated by : DEMETRICE SABA MD This examination was interpreted and the report reviewed and electronically signed by: DEMETRICE SABA MD on Jan 26 2023 10:54AM [facility] DIVISION OF RADIOLOGY * * *Final Report* * * DATE OF EXAM: Jan 26 2023 10:27AM WOX 5351 - XR HIP 3V PELV+ AP/LAT LT / PROCEDURE REASON: Acute hip pain, left * * * * Physician Interpretation * * * * EXAM TITLE: XR HIP 3V PELV+ AP/LAT LT EXAM DATE/TIME: 01/26/2023 10:27 AM COMPARISON: None. CLINICAL INDICATION/HISTORY: Hip pain. TECHNIQUE: AP and frog lateral views of the left hip and AP view of the pelvis are presented. FINDINGS: No acute fractures or subluxations are noted in the left hip. The left hip joint space is maintained, without obvious osteophyte formation. The visualized pelvic bones are intact. There is no significant soft tissue swelling. DIVISION OF RADIOLOGY Provider, [facility] [place] - 01/26/2023 * * *Final Report* * * DATE OF EXAM: Jan 26 2023 10:27AM WOX 5351 - XR HIP 3V PELV+ AP/LAT LT / PROCEDURE REASON: Acute hip pain, left * * * * Physician Interpretation * * * * EXAM TITLE: XR HIP 3V PELV+ AP/LAT LT EXAM DATE/TIME: 01/26/2023 10:27 AM COMPARISON: None. CLINICAL INDICATION/HISTORY: Hip pain. TECHNIQUE: AP and frog lateral views of the left hip and AP view of the pelvis are presented. FINDINGS: No acute fractures or subluxations are noted in the left hip. The left hip joint space is maintained, without obvious osteophyte formation. The visualized pelvic bones are intact. There is no significant soft tissue swelling. IMPRESSION IMPRESSION: Negative left hip x-ray and AP view pelvis. Big Machine Consultant: PSCB Transcribe Date/Time: Jan 26 2023 10:50A Dictated by : DEMETRICE SABA MD This examination was interpreted and the report reviewed and electronically signed by: DEMETRICE SABA MD on Jan 26 2023 10:54AM EST [facility] Radiology Study observation (narrative) [facility] XR Pelvis and Hip - left AP and Lateral frogOrdered By: Cc Provider on 01-26-2023 [facility] XR ANKLE AND FOOT 6 VIEWS LE FTon 10-01-2022 XR ANKLE AND FOOT 6 VIEWS LEFT ORIGINAL EXAMINATION: 3 x-ray views of the left ankle and 3 x-ray views of the left foot 10/01/2022 1:03 pm COMPARISON: None. HISTORY: ORDERING SYSTEM PROVIDED HISTORY: Reason for Exam: ankle pain FINDINGS: Prominent calcaneal enthesophyte noted. There is no fracture seen in the foot or ankle. No traumatic malalignment. IMPRESSION: Prominent calcaneal enthesopathy Interpreted by: Travon Mc MD Preliminary Report By: Travon Mc MD Electronically signed By Travon Mc MD Dictated Date: 10/01/2022 1:08:01 PM Prelim Date: 10/01/2022 1:08:55 PM Sign Date: 10/01/2022 1:08:55 PM Ordering Provider: TRESSA VERA [facility] ([place]) Absolute lymphocyte counton 08-27-2022 Lymphocytes Auto (Unsp spec) [#/Vol] 4.01 10*3/uL 0.83-4.51 [facility] Work Phone: Amorphous sediment detection in urine sediment by light microscopyon 08-27-2022 Amorphous sediment LM Ql (Urine sed) 1+ [facility] Work Phone: [phone] Basophil percentageon 2021 Basophil percentage 0 SEEN /hpf 0-5 [facility] Work Phone: [phone] Basophils/100 WBC (Bld) 0.5 % 0-1 [facility] Work Phone: [phone] Chloride [Moles/Vol] 103 mmol/L 98-107 [facility] Work Phone: [phone] Eosinophils/100 WBC (Bld) 3.1 % 0-5 [facility] Work Phone: [phone] Glucose [Mass/Vol] 126 mg/dL 74-106 [facility] Work Phone: Comment on above: Fasting Glucose resu lt greater than or equal to 126 mg/dL suggests DIABETES MELLITUS per A.D.A. criteria. Neutrophils (Bld) [#/Vol] 9.2 10*3/uL 2.0-7.7 [facility] Work Phone: Neutrophils/100 WBC (Bld) 63.3 % 47-70 [facility] Work Phone: Potassium [Moles/Vol] 3.4 mmol/L 3.5-5.1 [facility] Work Phone: [phone] Sodium [Moles/Vol] 134 mmol/L 136-145 [facility] Work Phone: WBC (Bld) [#/Vol] 14.5 10*3/uL 4.4-11.0 [facility] Work Phone: Beta hCG serum qualon 2021 Beta HCG ( test) Ql Negative [facility] Work Phone: Bilirubin Test strip Ql (U)o n 08-27-2022 Bilirubin Ql (U) Negative Negative [facility] Work Phone: Blood erythrocytes count (nu mber/volume)on 08-27-2022 RBC (Bld) [#/Vol] 4.83 10*6/uL 4.2-5.4 [facility] Work Phone: Blood hemoglobin measurement (mass/volume)on 08-27-2022 Hemoglobin (Bld) [Mass/Vol] 14.8 g/dL 12.0-15.0 [facility] Work Phone: Blood lymphocytes/100 leukoc yteson 08-27-2022 Lymphocytes/100 WBC (Bld) 27.7 % 19-41 [facility] Work Phone: Blood monocytes/100 leukocyt eson 08-27-2022 Monocytes/100 WBC (Bld) 4.9 % 0-10 [facility] Work Phone: Blood platelet mean volumeon 08-27-2022 Platelet mean volume (Bld) [Entitic vol] 10.2 fL 6.2-12.0 [facility] Work Phone: Determination of erythrocyte mean corpuscular volume (MCV)on 08-27-2022 MCV (RBC) [Entitic vol] 89.6 fL 81-99 [facility] Work Phone: Hematocrit Auto (Bld) [Volum e fraction]on 08-27-2022 Hematocrit (Bld) [Volume fraction] 43.3 % 37-47 [facility] Work Phone: Ketones Test strip Ql (U)on 08-27-2022 Ketones Ql (U) 5 mg/dl Negative [facility] Work Phone: Laboratory - Chemistry and C hemistry - challengeon 08-27-2022 CO2 [Moles/Vol] 22.0 mmol/L 21.0-32.0 [facility] Work Phone: Urea nitrogen/Creatinine [Mass ratio] 15.9 mg/mg 10-20 [facility] Work Phone: Laboratory - Hematology and Cell countson 08-27-2022 Erythrocyte distribution width (RBC) [Entitic vol] 41.5 fL 35.1-43.9 [facility] Work Phone: Erythrocyte distribution width (RBC) [Ratio] 12.5 % 11.6-14.6 [facility] Work Phone: Immature granulocytes/100 WBC (Bld) 0.500 % 0.0-0.9 [facility] Work Phone: Comment on above: IG% - Immature Granu locytes (promyelocytes, myelocytes and metamyelocytes) > 1% indicates that a LEFT SHIFT is Present. MCH (RBC) [Entitic mass] 30.6 pg 27.0-32.0 [facility] Work Phone: Nucleated RBC/100 WBC (Bld) [Ratio] 0 % 0-5 [facility] Work Phone: MCHC Auto (RBC) [Mass/Vol]on 08-27-2022 MCHC (RBC) [Mass/Vol] 34.2 g/dL 32-36 [facility] Work Phone: Mucus LM Ql (Urine sed)on Mucus Ql (Urine sed) 0 SEEN /hpf [facility] Work Phone: Nitrite Test strip Ql (U)on 08-27-2022 Nitrite Ql (U) Negative Negative [facility] Work Phone: No Panel Informationon 08-27 Estimated Creatinine Clearance Calc 90.86 ml/min [facility] Work Phone: Estimated GFR (MDRD) Amer 125 mL/min >60 [facility] Work Phone: Comment on above: GFR Calc Estimated GFR (MDRD) Non-Af Amer 103 mL/min >60 [facility] Work Phone: Comment on above: Non- GFR Calc Platelets bldon 08-27-2022 Platelets (Bld) [#/Vol] 406 10*3/uL 150-450 [facility] Work Phone: Protein Test strip Ql (U)on 08-27-2022 Protein Ql (U) Negative Negative [facility] Work Phone: Serum or plasma calcium cirilo urement (mass/volume)on 08-27-2022 Calcium [Mass/Vol] 9.8 mg/dL 8.5-10.1 [facility] [place] Work Phone: Serum or plasma creatinine m easurement (mass/volume)on 08-27-2022 Creatinine [Mass/Vol] 0.69 mg/dL 0.55-1.02 [facility] Work Phone: Comment on above: The validity of the calculated GFR & GFRAA in patients over 70 years has not been determined. Clinical correlation is essential. Serum or plasma urea nitroge n measurement (mass/volume)on 08-27-2022 Urea nitrogen [Mass/Vol] 11 mg/dL 7-18 [facility] Work Phone: Squamous epithelial cells de tection in urine sediment by light microscopyon 08-27-2022 Epithelial cells.squamous LM Ql (Urine sed) 0-5 SEEN /hpf 5-10 [facility] Work Phone: Thin prep Papanicolaou smear with manual screeningon 08-27-2022 Thin prep Papanicolaou smear with manual screening 9 -15 [facility] Work Phone: Urine blood detectionon 08-03 RBC Ql (U) Negative Negative [facility] Work Phone: RBC Ql (U) 0 SEEN /hpf 0-5 [facility] Work Phone: Urine clarityon 08-27-2022 Clarity (U) Clear Clear [facility] Work Phone: Urine color determinationon 08-27-2022 Color (U) Yellow Yellow [facility] Work Phone: Urine glucose detectionon Glucose Ql (U) Normal mg/dl Normal [facility] Work Phone: Urine leukocyte esterase det ection by dipstickon 08-27-2022 Leukocyte esterase Test strip Ql (U) Negative Negative [facility] Work Phone: Urine pHon 08-27-2022 pH (U) 7.0 [pH] 5.0 - 8.0 [facility] Work Phone: Urine sediment bacteria coun t by microscopy (number/high power field)on 08-27-2022 Bacteria LM.HPF (Urine sed) [#/Area] 0 /[HPF] None Seen [facility] Work Phone: Urine specific gravity measu rementon 08-27-2022 Specific gravity (U) [Rel density] 1.015 1.002-1.030 [facility] Work Phone: Urobilinogen Auto test strip Ql (U)on 08-27-2022 Urobilinogen Ql (U) Normal mg/dl Normal [facility] Work Phone: CT ABDOMEN/PELVIS W/O CONTRA STon 08-26-2022 CT ABDOMEN/PELVIS W/O CONTRAST ORIGINAL EXAMINATION: CT OF THE ABDOMEN AND PELVIS WITHOUT RIJLKKIL90/25/2022 9:01 am TECHNIQUE: CT of the abdomen and pelvis was performed without the administration of intravenous contrast. Multiplanar reformatted images are provided for review. Automated exposure control, iterative reconstruction, and/or weight based adjustment of the mA/kV was utilized to reduce the radiation dose to as low as reasonably achievable. COMPARISON: None HISTORY: ORDERING SYSTEM PROVIDED HISTORY: Reason for Exam: BILATERAL flank pain , left flank pain FINDINGS: Included lower thoracic images demonstrate no pleural or pericardial effusion. Non contrasted liver, spleen, adrenal glands, and pancreas are normal. Gallbladder is unremarkable. The kidneys appear symmetric in size without radiopaque calculus. No perinephric stranding. No hydronephrosis. Urinary bladder is mildly distended without wall thickening or perivesicular stranding. Distal esophagus and stomach are within normal limits. No small bowel wall thickening or dilatation. The appendix is normal. Colon is normal in course and caliber, without dilatation or wall thickening. Aorta and IVC are normal in caliber. No lymphadenopathy. Uterus appears surgically absent. No adnexal mass. Osseous structures appear intact no acute osseous abnormalities. IMPRESSION: No acute process within the abdomen or pelvis. No nephrolithiasis or evidence hydronephrosis. Interpreted by: Dina Taylor DO Preliminary Report By: Dina Taylor DO Electronically signed By Dina Taylor DO Dictated Date: 08/26/2022 9:07:45 AM Prelim Date: 08/26/2022 9:11:21 AM Sign Date: 08/26/2022 9:11:21 AM Ordering Provider: BETHANY PAZ [facility] ([place] LABORATORYOrdered By: Angy Coreas on 08-26-2022 Appearance (U) Clear (08/26/22 8:53 AM) Invalid Interpretation Code Clear AO Auto Urine SS Bilirubin Ql (U) Negative (08/26/22 8:53 AM) Invalid Interpretation Code Negative AO Auto Urine SS Color (U) Yellow (08/26/22 8:53 AM) Invalid Interpretation Code AO Auto Urine SS Glucose Test strip (U) [Mass/Vol] Negative Invalid Interpretation Code Negativemg/d L AO Auto Urine SS Hemoglobin Auto test strip (U) [Mass/Vol] Negative (08/26/22 8:53 AM) Invalid Interpretation Code Negative AO Auto Urine SS Ketones Ql (U) Negative Invalid Interpretation Code Negativemg/d L AO Auto Urine SS UA Leuk Est Negative (08/26/22 8:53 AM) Invalid Interpretation Code Negative AO Auto Urine SS UA Nitrite Negative (08/26/22 8:53 AM) Invalid Interpretation Code Negative AO Auto Urine SS UA pH 7.0 (08/26/22 8:53 AM) Invalid Interpretation Code 5.0 - 8.0 AO Auto Urine SS UA Protein Negative Invalid Interpretation Code Negativemg/d L AO Auto Urine SS UA Spec Grav 1.015 (08/26/22 8:53 AM) Invalid Interpretation Code 1.015-1.025 AO Auto Urine SS UA Specimen Type Clean Catch (08/26/22 8:53 AM) Invalid Interpretation Code AO Auto Urine SS UA Urobilinogen 0.2 E.U./dL Invalid Interpretation Code 0.2-1.0E.U./ dL AO Auto Urine SS UAon 08-26-2022 Color (U) Yellow Normal [facility] ([place] Comment on above: Performed By: #### U A #### [address] [address] Glucose (U) [Mass/Vol] Negative Normal Negative [facility] ([place] Comment on above: Performed By: #### U A #### [address] [address] Ketones Ql (U) Negative Normal Negative [facility] [place] Comment on above: Performed By: #### U A #### [address] [address] UA Appear Clear Normal Clear [facility] [place] Comment on above: Performed By: #### U A #### [address] [address] UA Blood Negative Normal Negative [facility] [place] Comment on above: Performed By: #### U A #### [address] [address] UA Leuk Est Negative Normal Negative [facility] [place] Comment on above: Performed By: #### U A #### [address] [address] UA Nitrite Negative Normal Negative [facility] [place] Comment on above: Performed By: #### U A #### [address] [address] UA pH 7.0 Normal 5.0 - 8.0 [facility] [place] Comment on above: Performed By: #### U A #### [address] [address] UA Protein Negative Normal Negative [facility] [place] Comment on above: Performed By: #### U A #### [address] [place], [place] [address] UA Spec Grav 1.015 Normal 1.015-1.025 [facility] ([place] Comment on above: Performed By: #### U A #### [address] [place], [place] [address] UA Specimen Type Clean Catch Normal [facility] [place] Comment on above: Performed By: #### U A #### [id number] [place], [place] [address] UA Urobilinogen 0.2 E.U./dL Normal 0.2-1.0 [facility] [place] Comment on above: Performed By: #### U A #### [id number] [place], [place] [address] Urobilinogen (U) [Mass/Vol] Negative Normal Negative [facility] [place] Comment on above: Performed By: #### U A #### [address] [address] Absolute lymphocyte counton 03-07-2022 Lymphocytes Auto (Unsp spec) [#/Vol] 3.54 10*3/uL 0.83-4.51 [facility] Work Phone: Basophil percentageon 2021 Basophil percentage 0 SEEN /hpf 0-5 [facility] Work Phone: Basophils/100 WBC (Bld) 0.6 % 0-1 [facility] [place] [facility] Work Phone: Bilirubin [Mass/Vol] 0.20 mg/dL 0.20-1.00 [facility] Work Phone: [phone] Comment on above: For patients on eltr ombopag therapy, use of Dimension [place] TBIL is not recommended. Chloride [Moles/Vol] 108 mmol/L 98-107 [facility] Work Phone: [phone] Eosinophils/100 WBC (Bld) 4.2 % 0-5 [facility] Work Phone: Glucose [Mass/Vol] 122 mg/dL 74-106 [facility] [place] Work Phone: Comment on above: Fasting Glucose resu lt from 100 to 125 mg/dL suggests IMPAIRED HOMEOSTASIS per A.D.A. criteria. Neutrophils (Bld) [#/Vol] 6.1 10*3/uL 2.0-7.7 [facility] Work Phone: Neutrophils/100 WBC (Bld) 56.3 % 47-70 [facility] Work Phone: [phone] Potassium [Moles/Vol] 3.5 mmol/L 3.5-5.1 [facility] Work Phone: Protein [Mass/Vol] 7.9 g/dL 6.4-8.2 [facility] [place] Work Phone: Sodium [Moles/Vol] 139 mmol/L 136-145 [facility] [place] Work Phone: WBC (Bld) [#/Vol] 10.8 10*3/uL 4.4-11.0 [facility] Work Phone: Bilirubin Test strip Ql (U)o n 03-07-2022 Bilirubin Ql (U) Negative Negative [facility] Work Phone: Blood erythrocytes count (nu mber/volume)on 03-07-2022 RBC (Bld) [#/Vol] 4.39 10*6/uL 4.2-5.4 [facility] Work Phone: Blood hemoglobin measurement (mass/volume)on 03-07-2022 Hemoglobin (Bld) [Mass/Vol] 13.5 g/dL 12.0-15.0 [facility] Work Phone: Blood lymphocytes/100 leukoc yteson 03-07-2022 Lymphocytes/100 WBC (Bld) 32.8 % 19-41 [facility] Work Phone: Blood monocytes/100 leukocyt eson 03-07-2022 Monocytes/100 WBC (Bld) 5.7 % 0-10 [facility] [place] [facility] Work Phone: Blood platelet mean volumeon 03-07-2022 Platelet mean volume (Bld) [Entitic vol] 9.8 fL 6.2-12.0 [facility] Work Phone: Determination of erythrocyte mean corpuscular volume (MCV)on 03-07-2022 MCV (RBC) [Entitic vol] 91.1 fL 81-99 [facility] [place] [facility] Work Phone: Hematocrit Auto (Bld) [Volum e fraction]on 03-07-2022 Hematocrit (Bld) [Volume fraction] 40.0 % 37-47 [facility] Work Phone: Ketones Test strip Ql (U)on 03-07-2022 Ketones Ql (U) Negative Negative [facility] Work Phone: Laboratory - Chemistry and C hemistry - challengeon 03-07-2022 ALP [Catalytic activity/Vol] 84 U/L 45-117 [facility] Work Phone: ALT [Catalytic activity/Vol] 26 U/L 13-56 [facility] Work Phone: CO2 [Moles/Vol] 24.0 mmol/L 21.0-32.0 [facility] Work Phone: Globulin (S) [Mass/Vol] 3.9 g/dL 2.2-4.2 [facility] [place] [facility] Work Phone: Urea nitrogen/Creatinine [Mass ratio] 10.7 mg/mg 10-20 [facility] Work Phone: Laboratory - Hematology and Cell countson 03-07-2022 Erythrocyte distribution width (RBC) [Entitic vol] 43.2 fL 35.1-43.9 [facility] Work Phone: Erythrocyte distribution width (RBC) [Ratio] 13.0 % 11.6-14.6 [facility] Work Phone: Immature granulocytes/100 WBC (Bld) 0.400 % 0.0-0.9 [facility] Work Phone: Comment on above: IG% - Immature Granu locytes (promyelocytes, myelocytes and metamyelocytes) > 1% indicates that a LEFT SHIFT is Present. MCH (RBC) [Entitic mass] 30.8 pg 27.0-32.0 [facility] Work Phone: Nucleated RBC/100 WBC (Bld) [Ratio] 0 % 0-5 [facility] Work Phone: MCHC Auto (RBC) [Mass/Vol]on 03-07-2022 MCHC (RBC) [Mass/Vol] 33.8 g/dL 32-36 [facility] Work Phone: Mucus LM Ql (Urine sed)on Mucus Ql (Urine sed) 0 SEEN /hpf [facility] Work Phone: Nitrite Test strip Ql (U)on 03-07-2022 Nitrite Ql (U) Negative Negative [facility] Work Phone: No Panel Informationon 03-07 Estimated Creatinine Clearance Calc 75.34 ml/min [facility] Work Phone: Estimated GFR (MDRD) Amer 100 mL/min >60 [facility] Work Phone: Comment on above: GFR Calc Estimated GFR (MDRD) Non-Af Amer 83 mL/min >60 [facility] Work Phone: Comment on above: Non- GFR Calc Platelets bldon 03-07-2022 Platelets (Bld) [#/Vol] 331 10*3/uL 150-450 [facility] Work Phone: Protein Test strip Ql (U)on 03-07-2022 Protein Ql (U) Negative Negative [facility] Work Phone: Serum or plasma albumin cirilo urement (mass/volume)on 03-07-2022 Albumin [Mass/Vol] 4.0 g/dL 3.2-5.0 [facility] [place] Work Phone: Serum or plasma albumin/glob ulin mass ratioon 03-07-2022 Albumin/Globulin [Mass ratio] 1.0 {ratio} 0.9-2.4 [facility] Work Phone: Serum or plasma calcium cirilo urement (mass/volume)on 03-07-2022 Calcium [Mass/Vol] 9.3 mg/dL 8.5-10.1 [facility] Work Phone: Serum or plasma creatinine m easurement (mass/volume)on 03-07-2022 Creatinine [Mass/Vol] 0.84 mg/dL 0.55-1.02 [facility] Work Phone: Comment on above: The validity of the calculated GFR & GFRAA in patients over 70 years has not been determined. Clinical correlation is essential. Serum or plasma urea nitroge n measurement (mass/volume)on 03-07-2022 Urea nitrogen [Mass/Vol] 9 mg/dL 7-18 [facility] Work Phone: Squamous epithelial cells de tection in urine sediment by light microscopyon 03-07-2022 Epithelial cells.squamous LM Ql (Urine sed) 0-5 SEEN /hpf 5-10 [facility] Work Phone: Thin prep Papanicolaou smear with manual screeningon 03-07-2022 Thin prep Papanicolaou smear with manual screening 16 U/L 15-37 [facility] Work Phone: Thin prep Papanicolaou smear with manual screening 7 5-15 [facility] Work Phone: Urine blood detectionon -0 RBC Ql (U) Negative Negative [facility] Work Phone: RBC Ql (U) 0 SEEN /hpf 0-5 [facility] Work Phone: Urine clarityon 03-07-2022 Clarity (U) Clear Clear [facility] Work Phone: Urine color determinationon 03-07-2022 Color (U) Straw Yellow [facility] Work Phone: Urine glucose detectionon Glucose Ql (U) Normal mg/dl Normal [facility] Work Phone: Urine leukocyte esterase det ection by dipstickon 03-07-2022 Leukocyte esterase Test strip Ql (U) Negative Negative [facility] Work Phone: Urine pHon 03-07-2022 pH (U) 6.0 [pH] 5.0 - 8.0 [facility] Work Phone: Urine sediment bacteria coun t by microscopy (number/high power field)on 03-07-2022 Bacteria LM.HPF (Urine sed) [#/Area] 0 /[HPF] None Seen [facility] Work Phone: Urine specific gravity measu rementon 03-07-2022 Specific gravity (U) [Rel density] 1.010 1.002-1.030 [facility] Work Phone: Urobilinogen Auto test strip Ql (U)on 03-07-2022 Urobilinogen Ql (U) Normal mg/dl Normal [facility] Work Phone: Lina 10-09-2021 EMERGENCY PHYSICIAN REPORT This is a preliminary report only, as the practitioner review and authentication has not occurred. Normal [facility] ER PHYSICIAN ASSESSMENT RECORDS : FlexChartData Event Time: 10/09/2021 19:10 RTD Status: Signed [facility] Macey Campbell [[id number]] Mid-Level Chart (V2b) 31 / F / 1990 Chart created at 10/09/2021 18:55 by Aj Pollard Chart closed at 10/09/2021 19:06 Entry in Emergency Department at 10/09/2021 17:26, departure at 10/09/2021 19:26 Patient Name: Macey Campbell Record Number: [id number] Date: 10/09/2021 18:55 Entered Department at: 10/09/2021 17:26 Patient Seen at: 10/09/2021 18:54 Historian: Patient Chief Complaint:Dental pain Nursing triage/initial assessment reviewed and confirmed and Initial Vital Signs reviewed. Temperature: 98.7 F (37.1 C). Pulse: 90. Respiratory Rate: 18. Blood-pressure: 148/78. Oxygen Saturation: 99% room air. History of Present Illness: Patient is a 31-year-old female presenting with left maxillary dentalgia for the past 5 days. Patient was seen at an urgent care 4 days ago and was started on Augmentin and ketorolac which she states is not helping her pain. She has yet to establish with a dentist. She does have a PCP. Denies any known chronic illnesses. Denies blood thinners. Patient states that she fractured a left maxillary molar a few months ago and has not had any issues until now. Patient denies [facility] PATIENT NAME: MACEY CAMPBELL [facility] Dr[address] MEDICAL REC #: [id number] [place] [address] EMERGENCY DEPARTMENT REPORT EMERGENCY DEPARTMENT PHYSICIAN bleeding/drainage from the oral cavity. Denies swelling of the lips, tongue, and throat. Denies chest pain/tightness and shortness of breath. Denies headache, lightheadedness, dizziness, and visual changes. Denies recent systemic symptoms including fevers/chills. Review of Systems. Ear/Nose/Throat: Dental pain All other systems reviewed and negative.. Past History, Medications, Allergies, Social History and Family History reviewed in nurses note. Medications: Reviewed RN Note. ketorolac, AUGMENTIN , estrodol Allergies: Reviewed RN Note Sulfonamides(Unknown ) Social History: Reviewed RN Note. Family History: Reviewed RN Note Physical Examination: General: Alert; Patient appears well bedside, nontoxic-appearing HEENT: Normal ENT inspection. Eyes: Lids Normal; . Oropharynx / Throat: Normal Pharynx. Normocephalic, PERRLA, EOM intact without nystagmus, TMs intact bilaterally without erythema or effusion, nares patent bilaterally, oral mucosa moist without lesion, oropharynx nonerythematous and nonexudative with no signs of airway compromise, no lip or tongue swelling noted, slight poor dentition noted without evidence of obvious dental abscess formation . Neck: No Lymphadenopathy, No Meningismus and Supple; Neck supple, trachea midline, no anterior or posterior cervical lymphadenopathy, no meningismus, no signs of Ludwigs angina Respiratory: No Resp Distress, Chest non-tender and Normal Breath Sounds; Lungs clear to auscultation without crackle, wheeze, or stridor bilaterally, no labored [facility] PATIENT NAME: MACEY CAMPBELL [address] [facility] [address] MEDICAL REC #: [id number] [place] [address] EMERGENCY DEPARTMENT REPORT EMERGENCY DEPARTMENT PHYSICIAN breathing noted Cardio-Vascular: No murmur, No rub and RRR Abdomen: Normal Bowel Sounds, No Organomegaly, Non-tender and Soft Back: No CVA tenderness, No Midline Tenderness and Non-tender Extremity: No Calf Tenderness, No edema and Normal Equal pulses Neurological: Alert, Oriented X3 and No Gross Weakness Skin: No rash, No Petechiae, Warm and Dry Psychological: Mood/Affect Normal and Normal Memory/Judgment Medical Decision Making History and physical exam as above. Vitals noted. Patient was given Sturgeon for pain here in the ED and will be prescribed a short course of Sturgeon for home. She will be switched from Augmentin to Cleocin and was given her first dose of clindamycin PO here in the ED. Upon reevaluation, there are no signs of hypoxia or airway compromise. Patient will be discharged home with dental referrals to follow-up with within the next 2 to 3 days as she may need the remote partially fractured maxillary molar removed. Patient is agreeable with said plan and will follow-up closely with her PCP as well. She is encouraged to return to the emergency department if any new or worsening symptoms develop. Vitals stable at time of discharge. Clinical Impression: 1. Acute left maxillary dentalgia Disposition: Discharged *Home. Condition: Good Direct patient care supervision and electronic documentation review by (more content not included)... Normal [facility] Vital Signs Date Time Vital Sign Value Performing Clinician Jono vigil 03-02-2025 14:58-0400 Body mass index (BMI) [Ratio] 31.91 kg/m2 Bernabe Islas [employer]CHISE DEVELOPMENT MANAGER Work Phone: [facility] 03-02-2025 14:58-0400 Body temperature 101.7 [degF] Bernabe Islas [employer]ER[employer]FRANCHISE DEVELOPMENT MANAGER Work Phone: [facility] 03-02-2025 14:58-0400 Body weight 81.7 kg Bernabe Islas CARD CL[employer]ER.FRANCHISE DEVELOPMENT MANAGER Work Phone: [facility] 03-02-2025 14:58-0400 Diastolic blood pressure 71 mm[Hg] Bernabe Islas CARD CL[employer]HIER.FRANCHISE DEVELOPMENT MANAGER Work Phone: [facility] 03-02-2025 14:58-0400 Heart rate 121 /min Bernabe Islas CARD [employer]ER.FRANCHISE DEVELOPMENT MANAGER Work Phone: [facility] 03-02-2025 14:58-0400 Respiratory rate 18 /min Bernabe Islas CARD CL[employer]ER.FRANCHISE DEVELOPMENT MANAGER Work Phone: [facility] 03-02-2025 14:58-0400 SaO2% (BldA) [Mass fraction] 97 % Bernabe Islas CARD CL[employer]ER.FRANCHISE DEVELOPMENT MANAGER Work Phone: [facility] 03-02-2025 14:58-0400 Systolic blood pressure 125 mm[Hg] Bernabe Islas CARD CL[employer]ER.FRANCHISE DEVELOPMENT MANAGER Work Phone: [facility] 02-09-2025 08:21-0400 Body mass index (BMI) [Ratio] 31.71 kg/m2 Syl Tai CARD [employer]OT[employer]ER.FRANCHISE DEVELOPMENT MANAGER Work Phone: [facility] 02-09-2025 08:21-0400 Body temperature 97.39 [degF] Syl Suppan CARD CLOTHIER.FRANCHISE DEVELOPMENT MANAGER Work Phone: [facility] 02-09-2025 08:21-0400 Body weight 81.19 kg Syl Suppan CARD CLOTHIER.FRANCHISE DEVELOPMENT MANAGER Work Phone: [facility] 02-09-2025 08:21-0400 Diastolic blood pressure 76 mm[Hg] Syl Suppan CARD CLOTHIER.FRANCHISE DEVELOPMENT MANAGER Work Phone: [facility] 02-09-2025 08:21-0400 Heart rate 89 /min Syl Suppan CARD CLOTHIER.FRANCHISE DEVELOPMENT MANAGER Work Phone: [facility] 02-09-2025 08:21-0400 SaO2% (BldA) [Mass fraction] 99 % Syl Suppan CARD CLOTHIER.FRANCHISE DEVELOPMENT MANAGER Work Phone: [facility] 02-09-2025 08:21-0400 Systolic blood pressure 110 mm[Hg] Syl Suppan CARD CLOTHIER.FRANCHISE DEVELOPMENT MANAGER Work Phone: [facility] 01-12-2025 10:51-0400 Body mass index (BMI) [Ratio] 31.44 kg/m2 Syl Suppan CARD CLOTHIER.FRANCHISE DEVELOPMENT MANAGER Work Phone: [facility] 01-12-2025 10:51-0400 Body temperature 97.39 [degF] Syl Suppan CARD CLOTHIER.FRANCHISE DEVELOPMENT MANAGER Work Phone: [facility] 01-12-2025 10:51-0400 Body weight 80.5 kg Sly Suppan CARD CLOTHIER.FRANCHISE DEVELOPMENT MANAGER Work Phone: [facility] 01-12-2025 10:51-0400 Diastolic blood pressure 70 mm[Hg] Syl Suppan CARD CLOTHIER.FRANCHISE DEVELOPMENT MANAGER Work Phone: [facility] 01-12-2025 10:51-0400 Heart rate 104 /min Syl Suppan CARD CLOTHIER.FRANCHISE DEVELOPMENT MANAGER Work Phone: [facility] 01-12-2025 10:51-0400 SaO2% (BldA) [Mass fraction] 98 % Syl Tai CARD CLOTHIER.FRANCHISE DEVELOPMENT MANAGER Work Phone: [facility] 01-12-2025 10:51-0400 Systolic blood pressure 110 mm[Hg] Syl Tai CARD CLOTHIER.FRANCHISE DEVELOPMENT MANAGER Work Phone: [facility] 01-11-2025 20:00-0400 Heart rate 72 /min Dr. Hollie Ballard MD Work Phone: [facility] 01-11-2025 20:00-0400 Respiratory rate 27 /min Dr. Hollie Ballard MD Work Phone: [phone] [place] [address] 01-11-2025 20:00-0400 SaO2% (BldA) [Mass fraction] 96 % Dr. Hollie Ballrad MD Work Phone: 2(125)717-835097 [place] [address] 01-11-2025 19:30-0400 Diastolic blood pressure 74 mm[Hg] Dr. Hollie Ballard MD Work Phone: 9(416)367-289697 [place] [address] 01-11-2025 19:30-0400 Systolic blood pressure 115 mm[Hg] Dr. Hollie Ballard MD Work Phone: 1(570)369-925841 [place] [address] 01-11-2025 16:31-0400 Body height 157.[address] Hollie Ballard MD Work Phone: 3(368)[phone] [place] [address] 01-11-2025 16:31-0400 Body mass index (BMI) [Ratio] 32.1 kg/m2 Dr. Hollie Ballard MD Work Phone: [facility] 01-11-2025 16:31-0400 Body temperature 97.5 [degF] Dr. Hollie Ballard MD Work Phone: 5(102)[phone] [place] [address] 01-11-2025 16:31-0400 Body weight 79.[address] Hollie Ballard MD Work Phone: [facility] 01-06-2025 07:31-0500 Body mass index (BMI) [Ratio] 31.18 kg/m2 Ara Crawford CARD CLOTHIER.FRANCHISE DEVELOPMENT MANAGER Work Phone: [facility] 01-06-2025 07:31-0500 Body temperature 97.81 [degF] Ara Dianahof CARD CLOTHIER.FRANCHISE DEVELOPMENT MANAGER Work Phone: [facility] 01-06-2025 07:31-0500 Body weight 79.83 kg Ara Dianahof CARD CLOTHIER.FRANCHISE DEVELOPMENT MANAGER Work Phone: [facility] 01-06-2025 07:31-0500 Diastolic blood pressure 80 mm[Hg] Ara Tannhof CARD CLOTHIER.FRANCHISE DEVELOPMENT MANAGER Work Phone: [facility] 01-06-2025 07:31-0500 Heart rate 103 /min Ara Tannhof CARD CLOTHIER.FRANCHISE DEVELOPMENT MANAGER Work Phone: [facility] 01-06-2025 07:31-0500 Respiratory rate 16 /min Ara Tannhof CARD CLOTHIER.FRANCHISE DEVELOPMENT MANAGER Work Phone: [facility] 01-06-2025 07:31-0500 SaO2% (BldA) [Mass fraction] 97 % Ara Ortizhof CARD CLOTHIER.FRANCHISE DEVELOPMENT MANAGER Work Phone: [facility] 01-06-2025 07:31-0500 Systolic blood pressure 124 mm[Hg] Ara Tannhof CARD CLOTHIER.FRANCHISE DEVELOPMENT MANAGER Work Phone: [facility] 12-20-2024 10:48-0500 Body mass index (BMI) [Ratio] 31.71 kg/m2 Radha Haagen CARD CLOTHIER.FRANCHISE DEVELOPMENT MANAGER Work Phone: [facility] 12-20-2024 10:48-0500 Body weight 81.19 kg Radha Haagen CARD CLOTHIER.FRANCHISE DEVELOPMENT MANAGER Work Phone: [facility] 12-20-2024 10:48-0500 Diastolic blood pressure 78 mm[Hg] Radha Haagen CARD CLOTHIER.FRANCHISE DEVELOPMENT MANAGER Work Phone: [facility] 12-20-2024 10:48-0500 Heart rate 100 /min Radha Haagen CARD CLOTHIER.FRANCHISE DEVELOPMENT MANAGER Work Phone: [facility] 12-20-2024 10:48-0500 Respiratory rate 16 /min Radha Haagen CARD CLOTHIER.FRANCHISE DEVELOPMENT MANAGER Work Phone: [facility] 12-20-2024 10:48-0500 SaO2% (BldA) [Mass fraction] 96 % Radha Haagen CARD CLOTHIER.FRANCHISE DEVELOPMENT MANAGER Work Phone: [facility] 12-20-2024 10:48-0500 Systolic blood pressure 118 mm[Hg] Radha Haagen CARD CLOTHIER.FRANCHISE DEVELOPMENT MANAGER Work Phone: [facility] 12-05-2024 10:25-0500 Body temperature 98.6 [degF] Radha Haagen CARD CLOTHIER.FRANCHISE DEVELOPMENT MANAGER Work Phone: [facility] 12-05-2024 10:05-0500 Diastolic blood pressure 72 mm[Hg] Radha Haagen CARD CLOTHIER.FRANCHISE DEVELOPMENT MANAGER Work Phone: [facility] 12-05-2024 10:05-0500 Heart rate 91 /min Radha Haagen CARD CLOTHIER.FRANCHISE DEVELOPMENT MANAGER Work Phone: [facility] 12-05-2024 10:05-0500 Respiratory rate 16 /min Radha Haagen CARD CLOTHIER.FRANCHISE DEVELOPMENT MANAGER Work Phone: [facility] 12-05-2024 10:05-0500 SaO2% (BldA) [Mass fraction] 98 % Radha Haagen CARD CLOTHIER.FRANCHISE DEVELOPMENT MANAGER Work Phone: [facility] 12-05-2024 10:05-0500 Systolic blood pressure 114 mm[Hg] Radha Haagen CARD CLOTHIER.FRANCHISE DEVELOPMENT MANAGER Work Phone: [facility] 11-30-2024 12:00-0500 Body mass index (BMI) [Ratio] 31.78 kg/m2 Alexander Dickey MD Work Phone: [facility] 11-30-2024 12:00-0500 Body temperature 98.91 [degF] Alexander Dickey MD Work Phone: [facility] 11-30-2024 12:00-0500 Body weight 81.38 kg Alexander Dickey MD Work Phone: [facility] 11-30-2024 12:00-0500 Diastolic blood pressure 74 mm[Hg] Alexander Dickey MD Work Phone: [facility] 11-30-2024 12:00-0500 Heart rate 97 /min Alexander Dickey MD Work Phone: [facility] 11-30-2024 12:00-0500 SaO2% (BldA) [Mass fraction] 98 % Alexander Dickey MD Work Phone: [facility] 11-30-2024 12:00-0500 Systolic blood pressure 116 mm[Hg] Alexander Dickey MD Work Phone: 5(018)242-346272 [place] [address] 11-27-2024 08:00-0500 Body mass index (BMI) [Ratio] 33 kg/m2 Dr. Hollie Ballard MD Work Phone: 4(142)[phone] [place] [address] 11-27-2024 08:00-0500 Body temperature 98.9 [degF] Dr. Hollie Ballard MD Work Phone: 1(711)567-369241 [place] [address] 11-27-2024 08:00-0500 Body weight 82.[address] Hollie Ballard MD Work Phone: 6(641)371-589741 [place] [address] 11-27-2024 08:00-0500 Diastolic blood pressure 76 mm[Hg] Dr. Hollie Ballard MD Work Phone: 9(657)[phone] [place] [address] 11-27-2024 08:00-0500 Heart rate 91 /min Dr. Hollie Ballard MD Work Phone: 5(667)[phone] [place] [address] 11-27-2024 08:00-0500 Respiratory rate 17 /min Dr. Hollie Ballard MD Work Phone: 7(356)445-473797 [place] [address] 11-27-2024 08:00-0500 SaO2% (BldA) [Mass fraction] 99 % Dr. Hollie Ballard MD Work Phone: 4(040)724-836297 [place] [address] 11-27-2024 08:00-0500 Systolic blood pressure 114 mm[Hg] Dr. Hollie Ballard MD Work Phone: 2(678)259-807641 [place] [address] 09-20-2024 11:54-0500 Body mass index (BMI) [Ratio] 32.26 kg/m2 Christian Bogner PA-C Work Phone: [facility] 09-20-2024 11:54-0500 Body temperature 97.81 [degF] Christian Bogner PA-C Work Phone: [facility] 09-20-2024 11:54-0500 Body weight 82.6 kg Christian Bogner PA-C Work Phone: [facility] 09-20-2024 11:54-0500 Diastolic blood pressure 80 mm[Hg] Christian Bogner PA-C Work Phone: [facility] 09-20-2024 11:54-0500 Heart rate 96 /min Christian Bogner PA-C Work Phone: [facility] 09-20-2024 11:54-0500 Respiratory rate 16 /min Christian Bogner PA-C Work Phone: [facility] 09-20-2024 11:54-0500 SaO2% (BldA) [Mass fraction] 98 % Christian Bogner PA-C Work Phone: [facility] 09-20-2024 11:54-0500 Systolic blood pressure 126 mm[Hg] Christian Bogner PA-C Work Phone: [facility] 06-28-2024 10:00-0400 Diastolic blood pressure 86 mm[Hg] Long Golias PT Work Phone: [facility] 06-28-2024 10:00-0400 Heart rate 92 /min Long Golias PT Work Phone: [facility] 06-28-2024 10:00-0400 Systolic blood pressure 127 mm[Hg] Long Golias PT Work Phone: [facility] 06-07-2024 08:38-0400 Diastolic blood pressure 84 mm[Hg] Radha Garduno CARD CLOTHIER.FRANCHISE DEVELOPMENT MANAGER Work Phone: [facility] 06-07-2024 08:38-0400 Heart rate 77 /min Radha Garduno CARD CLOTHIER.FRANCHISE DEVELOPMENT MANAGER Work Phone: [facility] 06-07-2024 08:38-0400 Respiratory rate 16 /min Radha Haagen CARD CLOTHIER.FRANCHISE DEVELOPMENT MANAGER Work Phone: [facility] 06-07-2024 08:38-0400 SaO2% (BldA) [Mass fraction] 97 % Radha Haagen CARD CLOTHIER.FRANCHISE DEVELOPMENT MANAGER Work Phone: [facility] 06-07-2024 08:38-0400 Systolic blood pressure 112 mm[Hg] Radha Haagen CARD CLOTHIER.FRANCHISE DEVELOPMENT MANAGER Work Phone: [facility] 05-02-2024 08:20-0400 Diastolic blood pressure 88 mm[Hg] Radha Haagen CARD CLOTHIER.FRANCHISE DEVELOPMENT MANAGER Work Phone: [facility] 05-02-2024 08:20-0400 Heart rate 81 /min Radha Haagen CARD CLOTHIER.FRANCHISE DEVELOPMENT MANAGER Work Phone: [facility] 05-02-2024 08:20-0400 Respiratory rate 16 /min Radha Haagen CARD CLOTHIER.FRANCHISE DEVELOPMENT MANAGER Work Phone: [facility] 05-02-2024 08:20-0400 SaO2% (BldA) [Mass fraction] 96 % Radha Haagen CARD CLOTHIER.FRANCHISE DEVELOPMENT MANAGER Work Phone: [facility] 05-02-2024 08:20-0400 Systolic blood pressure 122 mm[Hg] Radha Haagen CARD CLOTHIER.FRANCHISE DEVELOPMENT MANAGER Work Phone: [facility] 02-08-2024 08:40-0400 Diastolic blood pressure 62 mm[Hg] Vishnu Molina MD Work Phone: [facility] 02-08-2024 08:40-0400 Heart rate 76 /min Vishnu Molina MD Work Phone: [facility] 02-08-2024 08:40-0400 Respiratory rate 18 /min Vishnu Molina MD Work Phone: [facility] 02-08-2024 08:40-0400 Systolic blood pressure 108 mm[Hg] Vishnu Molina MD Work Phone: [facility] 02-08-2024 08:15-0400 SaO2% (BldA) [Mass fraction] 100 % Vishnu Molina MD Work Phone: [facility] 02-08-2024 08:08-0400 Body temperature 97.2 [degF] Vishnu Molina MD Work Phone: [facility] 02-08-2024 06:19-0400 Body height 160 cm Vishnu Molina MD Work Phone: [facility] 02-08-2024 06:19-0400 Body weight 82.56 kg Vishnu Molina MD Work Phone: [facility] 01-25-2024 17:05-0400 Diastolic blood pressure 86 mm[Hg] Radha Haagen CARD CLOTHIER.FRANCHISE DEVELOPMENT MANAGER Work Phone: [facility] 01-25-2024 17:05-0400 Heart rate 97 /min Radha Haagen CARD CLOTHIER.FRANCHISE DEVELOPMENT MANAGER Work Phone: [facility] 01-25-2024 17:05-0400 Respiratory rate 16 /min Radha Haagen CARD CLOTHIER.FRANCHISE DEVELOPMENT MANAGER Work Phone: [facility] 01-25-2024 17:05-0400 SaO2% (BldA) [Mass fraction] 97 % Radha Haagen CARD CLOTHIER.FRANCHISE DEVELOPMENT MANAGER Work Phone: [facility] 01-25-2024 17:05-0400 Systolic blood pressure 122 mm[Hg] Radha Haagen CARD CLOTHIER.FRANCHISE DEVELOPMENT MANAGER Work Phone: [facility] 01-20-2024 18:09-0400 Body temperature 98.3 [degF] [facility] 01-20-2024 18:09-0400 Diastolic blood pressure 76 mm[Hg] [facility] 01-20-2024 18:09-0400 Heart rate 86 /min [facility] 01-20-2024 18:09-0400 Respiratory rate 20 /min [facility] 01-20-2024 18:09-0400 SaO2% (BldA) [Mass fraction] 97 % [facility] 01-20-2024 18:09-0400 Systolic blood pressure 103 mm[Hg] [facility] 01-20-2024 15:21-0400 Body height 157.48 cm [facility] 01-20-2024 15:21-0400 Body mass index (BMI) [Ratio] 33.3 kg/m2 [facility] 01-20-2024 15:21-0400 Body weight 82.5 kg [facility] 01-20-2024 14:54-0400 Body temperature 97.81 [degF] Rafa Ross CARD CLOTHIER.FRANCHISE DEVELOPMENT MANAGER Work Phone: [facility] 01-20-2024 14:54-0400 Body weight 83 kg Rafa Ross CARD CLOTHIER.FRANCHISE DEVELOPMENT MANAGER Work Phone: [facility] 01-20-2024 14:54-0400 Diastolic blood pressure 78 mm[Hg] Rafa Hawkins CARD CLOTHIER.FRANCHISE DEVELOPMENT MANAGER Work Phone: [facility] 01-20-2024 14:54-0400 Heart rate 98 /min Rafa Ross CARD CLOTHIER.FRANCHISE DEVELOPMENT MANAGER Work Phone: [facility] 01-20-2024 14:54-0400 Respiratory rate 18 /min Rafa Ross CARD CLOTHIER.FRANCHISE DEVELOPMENT MANAGER Work Phone: [facility] 01-20-2024 14:54-0400 SaO2% (BldA) [Mass fraction] 100 % Rafa Hawkins CARD CLOTHIER.FRANCHISE DEVELOPMENT MANAGER Work Phone: [facility] 01-20-2024 14:54-0400 Systolic blood pressure 110 mm[Hg] Rafa Ross CARD CLOTHIER.FRANCHISE DEVELOPMENT MANAGER Work Phone: [facility] 12-15-2023 11:20-0500 Diastolic blood pressure 76 mm[Hg] Radha Haagen CARD CLOTHIER.FRANCHISE DEVELOPMENT MANAGER Work Phone: [facility] 12-15-2023 11:20-0500 Heart rate 92 /min Radha Haagen CARD CLOTHIER.FRANCHISE DEVELOPMENT MANAGER Work Phone: [facility] 12-15-2023 11:20-0500 Respiratory rate 16 /min Radha Haagen CARD CLOTHIER.FRANCHISE DEVELOPMENT MANAGER Work Phone: [facility] 12-15-2023 11:20-0500 SaO2% (BldA) [Mass fraction] 97 % Radha Haagen CARD CLOTHIER.FRANCHISE DEVELOPMENT MANAGER Work Phone: [facility] 12-15-2023 11:20-0500 Systolic blood pressure 128 mm[Hg] Radha Haagen CARD CLOTHIER.FRANCHISE DEVELOPMENT MANAGER Work Phone: [facility] 08-25-2023 08:02-0400 Body weight 79.56 kg Radha Haagen CARD CLOTHIER.FRANCHISE DEVELOPMENT MANAGER Work Phone: [facility] 08-25-2023 08:02-0400 Diastolic blood pressure 78 mm[Hg] Radha Haagen CARD CLOTHIER.FRANCHISE DEVELOPMENT MANAGER Work Phone: [facility] 08-25-2023 08:02-0400 Heart rate 76 /min Radha Haagen CARD CLOTHIER.FRANCHISE DEVELOPMENT MANAGER Work Phone: [facility] 08-25-2023 08:02-0400 Systolic blood pressure 110 mm[Hg] Radha Haagen CARD CLOTHIER.FRANCHISE DEVELOPMENT MANAGER Work Phone: [facility] 04-20-2023 14:13-0400 Diastolic blood pressure 88 mm[Hg] Radha Haagen CARD CLOTHIER.FRANCHISE DEVELOPMENT MANAGER Work Phone: [facility] 04-20-2023 14:13-0400 Heart rate 106 /min Radha Haagen CARD CLOTHIER.FRANCHISE DEVELOPMENT MANAGER Work Phone: [facility] 04-20-2023 14:13-0400 Respiratory rate 16 /min Radha Haagen CARD CLOTHIER.FRANCHISE DEVELOPMENT MANAGER Work Phone: [facility] 04-20-2023 14:13-0400 SaO2% (BldA) [Mass fraction] 96 % Radha Haagen CARD CLOTHIER.FRANCHISE DEVELOPMENT MANAGER Work Phone: [facility] 04-20-2023 14:13-0400 Systolic blood pressure 136 mm[Hg] Radha Haagen CARD CLOTHIER.FRANCHISE DEVELOPMENT MANAGER Work Phone: [facility] 02-02-2023 14:54-0400 Body weight 82.56 kg FRANSISCA Ellison PA-C Work Phone: [facility] 02-02-2023 14:54-0400 Diastolic blood pressure 80 mm[Hg] NA Ellison PA-C Work Phone: [facility] 02-02-2023 14:54-0400 Heart rate 92 /min NA Ellison PA-C Work Phone: [facility] 02-02-2023 14:54-0400 Respiratory rate 16 /min NA Ellison PA-C Work Phone: [facility] 02-02-2023 14:54-0400 SaO2% (BldA) [Mass fraction] 98 % NA Ellison PA-C Work Phone: [facility] 02-02-2023 14:54-0400 Systolic blood pressure 130 mm[Hg] NA Ellison PA-C Work Phone: [facility] 01-26-2023 09:40-0400 Body temperature 98.01 [degF] Josh Johnson MD Work Phone: [facility] 01-26-2023 09:40-0400 Body weight 82.56 kg Josh Johnson MD Work Phone: [facility] 01-26-2023 09:40-0400 Diastolic blood pressure 82 mm[Hg] Josh Johnson MD Work Phone: [facility] 01-26-2023 09:40-0400 Heart rate 88 /min Josh Johnson MD Work Phone: [facility] 01-26-2023 09:40-0400 Respiratory rate 21 /min Josh Johnson MD Work Phone: [facility] 01-26-2023 09:40-0400 SaO2% (BldA) [Mass fraction] 100 % Josh Johnson MD Work Phone: [facility] 01-26-2023 09:40-0400 Systolic blood pressure 124 mm[Hg] Josh Johnson MD Work Phone: [facility] 10-20-2022 11:26-0500 Body weight 81.19 kg Radha Garduno CARD CLOTHIER.FRANCHISE DEVELOPMENT MANAGER Work Phone: [facility] 10-20-2022 11:26-0500 Diastolic blood pressure 92 mm[Hg] Radha Haagen CARD CLOTHIER.FRANCHISE DEVELOPMENT MANAGER Work Phone: [facility] 10-20-2022 11:26-0500 Heart rate 105 /min Radha Haagen CARD CLOTHIER.FRANCHISE DEVELOPMENT MANAGER Work Phone: [facility] 10-20-2022 11:26-0500 Respiratory rate 18 /min Radha Haagen CARD CLOTHIER.FRANCHISE DEVELOPMENT MANAGER Work Phone: [facility] 10-20-2022 11:26-0500 SaO2% (BldA) [Mass fraction] 98 % Radha Haniko CARD CLOTHIER.FRANCHISE DEVELOPMENT MANAGER Work Phone: [facility] 10-20-2022 11:26-0500 Systolic blood pressure 144 mm[Hg] Radha Haagen CARD CLOTHIER.FRANCHISE DEVELOPMENT MANAGER Work Phone: [facility] 10-01-2022 12:43-0500 Body height 157.5 cm TRESSA REICHFIELD DO [facility] 10-01-2022 12:43-0500 Body temperature 98.24 [degF] TRESSA REICHFIELD DO [facility] 10-01-2022 12:43-0500 Body weight 79.5 kg TRESSA REICHFIELD DO [facility] 10-01-2022 12:43-0500 Diastolic Blood Pressure Non-Invasive 71 1 TRESSA REICHFIELD DO [facility] 10-01-2022 12:43-0500 Heart rate 124 /min TRESSA REICHFIELD DO [facility] 10-01-2022 12:43-0500 Respiratory rate 18 /min TRESSA REICHFIELD DO [facility] 10-01-2022 12:43-0500 Systolic Blood Pressure Non-Invasive 122 1 TRESSA VERA [facility] 08-27-2022 19:31-0400 Heart rate 77 /min [facility] Work Phone: 08-27-2022 19:31-0400 Respiratory rate 15 /min [facility] Work Phone: 08-27-2022 19:31-0400 SaO2% (BldA) [Mass fraction] 97 % [facility] Work Phone: 08-27-2022 16:05-0400 Diastolic blood pressure 72 mm[Hg] [facility] Work Phone: 08-27-2022 16:05-0400 Systolic blood pressure 117 mm[Hg] [facility] Work Phone: 08-27-2022 14:25-0400 Body height 157.48 cm [facility] Work Phone: 08-27-2022 14:25-0400 Body mass index (BMI) [Ratio] 31.8 kg/m2 [facility] Work Phone: 08-27-2022 14:25-0400 Body temperature 96.7 [degF] [facility] Work Phone: 08-27-2022 14:25-0400 Body weight 78.92 kg [facility] Work Phone: 08-26-2022 09:09-0400 Body height [address] BETHANY PAZ MD [facility] 08-26-2022 09:09-0400 Body temperature 98.42 [degF] DR BETHANY PAZ MD [facility] 08-26-2022 09:09-0400 Body weight [address] BETHANY PAZ MD [facility] 08-26-2022 09:09-0400 Diastolic blood pressure 83 mm[Hg] DR BETHANY PAZ MD [facility] 08-26-2022 09:09-0400 Heart rate 94 /min DR BETHANY PAZ MD [facility] 08-26-2022 09:09-0400 Respiratory rate 20 /min DR BETHANY PAZ MD [facility] 08-26-2022 09:09-0400 Systolic blood pressure 130 mm[Hg] DR BETHANY PAZ MD [facility] 06-24-2022 16:17-0400 Body weight 78.47 kg NA Ellison PA-C Work Phone: [facility] 06-24-2022 16:17-0400 Diastolic blood pressure 70 mm[Hg] NA Ellison PA-C Work Phone: [facility] 06-24-2022 16:17-0400 Heart rate 106 /min NA Ellison PA-C Work Phone: [facility] 06-24-2022 16:17-0400 Respiratory rate 16 /min NA Ellison PA-C Work Phone: [facility] 06-24-2022 16:17-0400 SaO2% (BldA) [Mass fraction] 99 % NA Ellison PA-C Work Phone: [facility] 06-24-2022 16:17-0400 Systolic blood pressure 120 mm[Hg] NA Ellison PA-C Work Phone: [facility] 05-19-2022 12:50-0400 Body height 157.[address] Hollie Ballard Work Phone: [facility] Work Phone: 05-19-2022 12:50-0400 Body mass index (BMI) [Ratio] 31.3 kg/m2 Dr. Hollie Ballard Work Phone: [facility] Work Phone: 05-19-2022 12:50-0400 Body temperature 98 [degF] Dr. Hollie Ballard Work Phone: [facility] Work Phone: 05-19-2022 12:50-0400 Body weight 77.[address] Hollie Ballard Work Phone: [facility] Work Phone: 05-19-2022 12:50-0400 Diastolic blood pressure 84 mm[Hg] Dr. Hollie Ballard Work Phone: [facility] Work Phone: 05-19-2022 12:50-0400 Heart rate 106 /min Dr. Hollie Ballard Work Phone: [facility] Work Phone: 05-19-2022 12:50-0400 Respiratory rate 16 /min Dr. Hollie Ballard Work Phone: [facility] Work Phone: 05-19-2022 12:50-0400 SaO2% (BldA) [Mass fraction] 100 % Dr. Hollie Ballard Work Phone: [facility] Work Phone: 05-19-2022 12:50-0400 Systolic blood pressure 153 mm[Hg] Dr. Hollie Balladr Work Phone: [facility] Work Phone: 05-19-2022 12:29-0400 Body temperature 96.91 [degF] Bernabe Islas APRN.FRANCHISE DEVELOPMENT MANAGER Work Phone: [facility] 05-19-2022 12:29-0400 Body weight 77.11 kg Bernabe Islas APRN.FRANCHISE DEVELOPMENT MANAGER Work Phone: [facility] 05-19-2022 12:29-0400 Diastolic blood pressure 80 mm[Hg] Bernabe Islas APRN.FRANCHISE DEVELOPMENT MANAGER Work Phone: [facility] 05-19-2022 12:29-0400 Heart rate 96 /min [facility] CARD CLOT[facility]ER.FRANCHISE DEVELOPMENT MANAGER Work Phone: [facility] 05-19-2022 12:29-0400 Respiratory rate 16 /min [facility] C[facility] CLOT[facility].FRANCHISE DEVELOPMENT MANAGER Work Phone: [facility] 05-19-2022 12:29-0400 SaO2% (BldA) [Mass fraction] 99 % [facility] CARD CLOTHIER.FRANCHISE DEVELOPMENT MANAGER Work Phone: [facility] 05-19-2022 12:29-0400 Systolic blood pressure 128 mm[Hg] [facility] CARD CLOTHIER.FRANCHISE DEVELOPMENT MANAGER Work Phone: [facility] 03-07-2022 17:16-0400 Body temperature 97.7 [degF] Dr. Hollie Ballard Work Phone: [facility] Work Phone: 03-07-2022 17:16-0400 Diastolic blood pressure 73 mm[Hg] Dr. Hollie Ballard Work Phone: [facility] Work Phone: 03-07-2022 17:16-0400 Heart rate 78 /min Dr. Hollie Ballard Work Phone: [facility] Work Phone: 03-07-2022 17:16-0400 Respiratory rate 15 /min Dr. Hollie Ballard Work Phone: [facility] Work Phone: 03-07-2022 17:16-0400 SaO2% (BldA) [Mass fraction] 99 % Dr. Hollie Ballard Work Phone: [facility] Work Phone: 03-07-2022 17:16-0400 Systolic blood pressure 114 mm[Hg] Dr. Hollie Ballard Work Phone: [facility] Work Phone: 03-07-2022 15:23-0400 Body height 157.[address] Hollie Ballard Work Phone: [facility] Work Phone: 03-07-2022 15:23-0400 Body mass index (BMI) [Ratio] 31.8 kg/m2 Dr. Hollie Ballard Work Phone: [facility] Work Phone: 03-07-2022 15:23-0400 Body weight 78.[address] Hollie Ballard Work Phone: [facility] Work Phone: 01-21-2022 13:42-0400 Body mass index (BMI) [Ratio] 31.6 kg/m2 Dr. Hollie Ballard Work Phone: [facility] Work Phone: 01-21-2022 13:42-0400 Body weight 78.[address] Hollie Ballard Work Phone: [facility] Work Phone: 01-21-2022 13:42-0400 Diastolic blood pressure 82 mm[Hg] Dr. Hollie Ballard Work Phone: [facility] Work Phone: 01-21-2022 13:42-0400 Systolic blood pressure 120 mm[Hg] Dr. Hollie Ballard Work Phone: [facility] Work Phone: 01-21-2022 13:42-0400 Body mass index (BMI) [Ratio] 31.6 kg/m2 Dr. Hollie Ballard Work Phone: [facility] Work Phone: 01-21-2022 13:42-0400 Body weight 78.[address] Hollie Ballard Work Phone: [facility] Work Phone: 01-21-2022 13:42-0400 Diastolic blood pressure 82 mm[Hg] Dr. Hollie Ballard Work Phone: [facility] Work Phone: 01-21-2022 13:42-0400 Systolic blood pressure 120 mm[Hg] Dr. Hollie Ballard Work Phone: [facility] Work Phone: 01-04-2022 04:10-0500 Body mass index (BMI) [Ratio] 31.1 kg/m2 Dr. Hollie Ballard Work Phone: [facility] Work Phone: 01-04-2022 04:10-0500 Body temperature 97.6 [degF] Dr. Hollie Ballard Work Phone: [facility] Work Phone: 01-04-2022 04:10-0500 Body weight 77.[address] Hollie Ballard Work Phone: [facility] Work Phone: 01-04-2022 04:10-0500 Diastolic blood pressure 86 mm[Hg] Dr. Hollie Ballard Work Phone: [facility] Work Phone: 01-04-2022 04:10-0500 Heart rate 104 /min Dr. Hollie Ballard Work Phone: [facility] Work Phone: 01-04-2022 04:10-0500 Respiratory rate 17 /min Dr. Hollie Ballard Work Phone: [facility] Work Phone: 01-04-2022 04:10-0500 SaO2% (BldA) [Mass fraction] 100 % Dr. Hollie Ballard Work Phone: [facility] Work Phone: 01-04-2022 04:10-0500 Systolic blood pressure 154 mm[Hg] Dr. Hollie Ballard Work Phone: [facility] Work Phone: Encounters Encounter Date Encounter Type Care Provider Facility Start: 09-03-2025 End: 09-03-2025 Emergency department patient visit Carmelo Rodriguez Facility:[facility] Start: 08-21-2025 End: 08-21-2025 ambulatory HOLLIE BALLARD Facility:[facility] Start: 08-18-2025 End: 08-18-2025 ambulatory MACEY O'KEVIN Facility:[facility] Start: 08-14-2025 End: 08-14-2025 ambulatory DAR VERMA Facility:[facility] Start: 08-09-2025 End: 08-09-2025 ambulatory MACEY O'KEVIN Facility:[facility] Start: 08-02-2025 End: 08-02-2025 ambulatory HOLLIE BALLARD Facility:[facility] Start: 07-26-2025 End: 07-26-2025 ambulatory MACEY O'KEVIN Facility:[facility] Start: 07-12-2025 End: 07-12-2025 ambulatory Macey O'Kevin PT [facility] Comment on above: Tear of left acetabu lar labrum, initial encounter (Primary Dx) Start: 07-04-2025 End: 07-05-2025 Refill Hollie Ballard MD Work Phone: [facility] [place] Comment on above: Refill Request Start: 06-28-2025 End: 06-28-2025 ambulatory Macey O'Kevin PT [facility] Comment on above: Tear of left acetabu lar labrum, initial encounter (Primary Dx) Start: 06-20-2025 End: 06-20-2025 ambulatory Macey O'Kevin PT [facility] Comment on above: Tear of left acetabu lar labrum, initial encounter (Primary Dx) Start: 06-14-2025 End: 06-14-2025 ambulatory Macey O'Kevin PT [facility] Comment on above: Tear of left acetabu lar labrum, initial encounter (Primary Dx) Start: 06-12-2025 End: 06-12-2025 Unlisted evaluation and management service Dar Verma MD Work Phone: [facility] [place] Comment on above: Status post arthrosc opy of hip (Primary Dx) Start: 06-12-2025 End: 06-12-2025 ambulatory DAR VERMA Facility:[facility] Start: 06-07-2025 End: 06-07-2025 ambulatory MACEY O'KEVIN Facility:[facility] Start: 05-31-2025 End: 05-31-2025 ambulatory Macey O'Kevin PT [facility] Comment on above: Tear of left acetabu lar labrum, initial encounter (Primary Dx) Start: 05-24-2025 End: 05-24-2025 ambulatory Macey O'Kevin PT [facility] Comment on above: Tear of left acetabu lar labrum, initial encounter (Primary Dx) Start: 05-17-2025 End: 05-17-2025 ambulatory Macey O'Kevin PT [facility] Comment on above: Tear of left acetabu lar labrum, initial encounter (Primary Dx) Start: 05-16-2025 End: 05-16-2025 Patient encounter procedure Maikel Hector PA-C Work Phone: [employer] Comment on above: Status post arthrosc opy of hip (Primary Dx); Post-operative state Start: 05-16-2025 End: 05-16-2025 ambulatory MAIKEL HECTOR Facility:[facility] Start: 05-10-2025 End: 05-10-2025 Patient encounter procedure Dar Verma MD Work Phone: [facility] Comment on above: aflac paperwork Start: 05-10-2025 End: 05-10-2025 ambulatory Dar Verma MD Work Phone: [facility] Comment on above: Tear of left acetabu lar labrum, initial encounter (Primary Dx) Start: 05-01-2025 End: 05-01-2025 ambulatory Macey O'Kevin PT [facility] Comment on above: Tear of left acetabu lar labrum, initial encounter (Primary Dx) Start: 04-26-2025 End: 04-26-2025 ambulatory DAR VERMA Facility:[facility] Start: 04-13-2025 End: 04-13-2025 ambulatory Dar Verma MD Work Phone: [facility] Start: 04-13-2025 End: 04-13-2025 Patient encounter procedure Dar Verma MD Work Phone: [facility] Comment on above: Hip brace Start: 04-12-2025 End: 04-12-2025 Nursing evaluation of patient and report Nacho Kessler RN Work Phone: [facility] Comment on above: Tear of left acetabu lar labrum, initial encounter (Primary Dx); Femoroacetabular impingement of left hip; Pain of left hip Start: 04-12-2025 End: 04-12-2025 Admission to establishment [facility] Start: 04-12-2025 End: 04-12-2025 Anesthesia consultation [facility] Pre Anesthesia Comment on above: Pre-op evaluation (P rimary Dx); Mixed hyperlipidemia; GERD without esophagitis; Chronic migraine with aura without status migrainosus, not intractable Start: 04-12-2025 End: 04-12-2025 Preprocedural examination done [facility] Work Phone: Start: 04-12-2025 End: 04-12-2025 ambulatory HOLLIE BALLARD Facility:[facility] Start: 04-12-2025 Encounter for other preprocedural examination MAIKEL HECTOR [facility] Start: 04-10-2025 End: 04-10-2025 Telephone encounter Nacho Kessler RN Work Phone: [facility] Comment on above: Distance Education Faculty Liaison - O ther; Schedule Surgery; Preparations For Surgery Start: 04-10-2025 End: 04-10-2025 Office outpatient new 45 minutes Dar Verma MD Work Phone: [facility] Comment on above: Femoroacetabular imp ingement of left hip (Primary Dx) Start: 04-10-2025 End: 04-10-2025 ambulatory Nacho Kessler RN Work Phone: [facility] Start: 04-06-2025 End: 04-10-2025 ambulatory Maikel Hector PA-C Work Phone: [facility] Comment on above: hip mri Start: 04-06-2025 End: 04-06-2025 Subsequent hospital visit by physician Mri [facility] (I-Stat/3t) MRI [facility] Comment on above: Pain of left hip [M2 5.552] Start: 03-23-2025 End: 03-23-2025 ambulatory MAIKEL ROPERO Facility:[facility] Start: 03-17-2025 End: 03-20-2025 Refill Radha Garduno APRN.FRANCHISE DEVELOPMENT MANAGER Work Phone: [facility] Comment on above: Refill Request Start: 03-14-2025 End: 03-14-2025 Patient encounter procedure Maggy Hayes PA-C Work Phone: Orthopaedics Comment on above: Pain of left hip (Pr imary Dx) Start: 03-14-2025 End: 03-14-2025 ambulatory [facility] Facility:[facility] Start: 03-02-2025 End: 03-02-2025 Emergency department patient visit Radha Garduno NP Facility:[facility] Start: 03-02-2025 End: 03-02-2025 Office outpatient visit 15 minutes Bernabe Islas CARD CLOTHIER.FRANCHISE DEVELOPMENT MANAGER Work Phone: [facility] Comment on above: Low back pain, unspe cified back pain laterality, unspecified chronicity, unspecified whether sciatica present (Primary Dx) Start: 03-02-2025 End: 03-02-2025 ambulatory [facility] Facility:[facility] Start: 02-21-2025 End: 02-21-2025 ambulatory Macey Kaiser PT [facility] Comment on above: Pain of left hip (Pr imary Dx) Start: 02-09-2025 End: 02-09-2025 ambulatory Macey Kaiser PT [facility] Comment on above: Pain of left hip (Pr imary Dx); Pain of left hip joint; Acute back pain with sciatica, left; Left hip pain; Acute left-sided low back pain with left-sided sciatica Start: 02-09-2025 End: 02-09-2025 ambulatory [facility] Facility:[facility] Start: 02-09-2025 End: 02-09-2025 Office outpatient visit 15 minutes Syl Tai APRN.FRANCHISE DEVELOPMENT MANAGER Work Phone: [facility] Comment on above: Chronic maxillary si nusitis (Primary Dx); Trigeminal neuralgia; Hepatic steatosis; Tobacco abuse Start: 02-03-2025 End: 02-03-2025 ambulatory Nila Gomez HANDLE LATHE OPERATOR Work Phone: [facility] Comment on above: Pain of left hip (Pr imary Dx) Start: 01-27-2025 End: 03-29-2025 Follow-up encounter Radha Garduno APRN.FRANCHISE DEVELOPMENT MANAGER Work Phone: [facility] Start: 01-26-2025 End: 01-26-2025 Follow-up encounter Syl Tai APRN.FRANCHISE DEVELOPMENT MANAGER Work Phone: [facility] Comment on above: Results - Ct Start: 01-26-2025 End: 01-26-2025 ambulatory [facility] Facility:[facility] Start: 01-26-2025 End: 01-26-2025 [facility] Work Phone: [facility] Comment on above: Atypical facial pain [G50.1] Start: 01-24-2025 End: 01-24-2025 ambulatory Nila Gomez HANDLE LATHE OPERATOR Work Phone: [facility] Comment on above: Pain of left hip (Pr imary Dx) Start: 01-19-2025 End: 01-19-2025 ambulatory [facility] Facility:[facility] Start: 01-19-2025 End: 01-19-2025 Subsequent hospital visit by physician [facility] Work Phone: Radiology Comment on above: RUQ pain [R10.11] Start: 01-17-2025 End: 01-17-2025 ambulatory Macey Kaiser PT [facility] Comment on above: Pain of left hip (Pr imary Dx); Acute back pain with sciatica, left; Pain of left hip joint; Left hip pain; Acute left-sided low back pain with left-sided sciatica Start: 01-12-2025 End: 01-12-2025 Telephone encounter Syl Tai APRN.FRANCHISE DEVELOPMENT MANAGER Work Phone: [facility] [place] Start: 01-12-2025 End: 01-12-2025 ambulatory HOLLIE Dawson NELLIE Facility:[facility] Start: 01-12-2025 End: 01-12-2025 Office outpatient visit 15 minutes Syl Tai CARD CLOTHIER.FRANCHISE DEVELOPMENT MANAGER Work Phone: [facility] Comment on above: Leukocytosis, unspec ified type (Primary Dx); Screening for depression; Right facial pain; RUQ pain; Atypical facial pain Start: 01-11-2025 End: 01-11-2025 Emergency department patient visit Dr. Hollie Ballard MD Work Phone: -Emergency Department Work Phone: Start: 01-09-2025 End: 01-09-2025 ambulatory Macey Kaiser PT [facility] Comment on above: Pain of left hip (Pr imary Dx) Start: 01-06-2025 End: 01-06-2025 Office outpatient visit 25 minutes Ara Crawford APRN.FRANCHISE DEVELOPMENT MANAGER Work Phone: [facility] Comment on above: Sinobronchitis (Prim colt Dx); Vaginal yeast infection Start: 01-06-2025 End: 01-06-2025 ambulatory ARA CRAWFORD Facility:[facility] Start: 01-05-2025 End: 01-07-2025 ambulatory Radha Garduno APRN.FRANCHISE DEVELOPMENT MANAGER Work Phone: [facility] Comment on above: Brohnchitis Start: 01-04-2025 End: 01-04-2025 ambulatory [facility] Facility:[facility] Start: 01-04-2025 End: 01-04-2025 Patient encounter procedure Nay Reinoso DO Work Phone: [facility] Comment on above: Pain of left hip (Pr imary Dx) Start: 12-30-2024 End: 12-30-2024 Follow-up encounter Radha Garduno APRN.CNP Work Phone: [facility] [place] Comment on above: Leukocytosis, unspec ified type (Primary Dx) Start: 12-27-2024 End: 12-27-2024 ambulatory [facility] Start: 12-20-2024 End: 12-20-2024 Patient encounter procedure Radha Garduno APRN.CNP Work Phone: [facility] [place] Comment on above: Wellness examination (Primary Dx); Gastroesophageal reflux disease, unspecified whether esophagitis present; Mixed hyperlipidemia; Hyperglycemia; 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; PCOS (polycystic ovarian syndrome) Start: 12-20-2024 End: 12-20-2024 Patient encounter status Radha Garduno APRN.CNP Work Phone: [facility] Work Phone: Start: 12-20-2024 End: 12-20-2024 ambulatory [facility] Start: 12-20-2024 Encounter for genera l adult medical examination without abnormal findings RADHA GARDUNO [facility] Start: 12-15-2024 End: 12-15-2024 Refill Radha Garduno APRN.CNP Work Phone: [facility] [place] Comment on above: Refill Request Start: 12-05-2024 End: 12-05-2024 Office outpatient visit 25 minutes Radha Garduno APRN.CNP Work Phone: [facility] [place] Comment on above: Bronchitis (Primary Dx) Start: 12-05-2024 End: 12-05-2024 ambulatory [facility] Start: 11-30-2024 End: 11-30-2024 Telephone encounter Alexander Dickey MD Work Phone: [facility] [place] Comment on above: Results Start: 11-30-2024 End: 11-30-2024 Subsequent hospital visit by physician Paola [facility] [place] Work Phone: Radiology Comment on above: Viral URI with cough [J06.9] Start: 11-30-2024 End: 11-30-2024 ambulatory ALEXANDER DICKEY Facility:[facility] Start: 11-30-2024 End: 11-30-2024 Patient encounter procedure Alexander Dickey MD Work Phone: [facility] Comment on above: Viral URI with cough (Primary Dx); Bronchitis; Chest pain, unspecified type Start: 11-27-2024 End: 11-27-2024 Patient encounter procedure Reji Pelayo ACCOUNTS PAYABLE TECHNICIAN-C [facility] Work Phone: Start: 11-27-2024 End: 11-27-2024 ambulatory Reji Pelayo NP Facility:[facility] Start: 11-23-2024 ambulatory CLARITA ABREU Facility :[facility] Start: 11-23-2024 End: 11-23-2024 Subsequent hospital visit by physician Clarita Abreu APRN.CNP Work Phone: [facility] Comment on above: Pain of left hip [M2 5.552] Start: 11-01-2024 End: 11-01-2024 Telephone encounter Maggy Vetovitz PA-C Work Phone: Orthopaedics Comment on above: Appointment Start: 10-10-2024 End: 10-10-2024 ambulatory MAGGY VETOVITZ Facility:[facility] Start: 10-10-2024 End: 10-10-2024 Patient encounter procedure Maggy Vetovitz PA-C Work Phone: Orthopaedics Comment on above: Pain of left hip (Pr imary Dx) Start: 09-28-2024 End: 09-30-2024 ambulatory Maggy Vetovitz PA-C Work Phone: Orthopaedics Comment on above: Hip pain Start: 09-23-2024 End: 09-23-2024 ambulatory MAGGY VETOVITZ Facility:[facility] Start: 09-23-2024 End: 09-23-2024 Subsequent hospital visit by physician Mri [facility] (I-Stat/1.5t) Work Phone: Radiology Comment on above: Pain of left hip [M2 5.552] Start: 09-20-2024 End: 09-20-2024 Office outpatient visit 15 minutes Christian Valdes PA-C Work Phone: [facility] [place] Comment on above: Acute otalgia, right (Primary Dx) Start: 09-20-2024 End: 09-20-2024 ambulatory CHRISTIAN VALDES Facility:[facility] Start: 09-15-2024 End: 09-15-2024 ambulatory No Pcp CARD CLOTHIER [facility] Start: 09-15-2024 End: 09-15-2024 Patient encounter procedure No Pcp CARD CLOTHIER [facility] Start: 09-08-2024 End: 09-08-2024 Patient encounter procedure Maggy Hayes PA-C Work Phone: Orthopaedics Comment on above: Pain of left hip (Pr imary Dx) Start: 09-08-2024 End: 09-08-2024 ambulatory UNKNOWN PROVIDER Facility:[facility] Start: 09-08-2024 End: 09-08-2024 Subsequent hospital visit by physician Radio [facility] Work Phone: Radiology Comment on above: Pain [R52] Start: 08-19-2024 End: 08-19-2024 ambulatory Long Warren PT Work Phone: [facility] Comment on above: Acute back pain with sciatica, left (Primary Dx); Pain of left hip joint Start: 08-10-2024 End: 08-10-2024 ambulatory Nila Kashuba HANDLE LATHE OPERATOR Work Phone: [facility] Comment on above: Acute back pain with sciatica, left (Primary Dx); Pain of left hip joint Start: 08-08-2024 End: 08-08-2024 ambulatory Nila Kashuba HANDLE LATHE OPERATOR Work Phone: [facility] Comment on above: Acute back pain with sciatica, left (Primary Dx); Pain of left hip joint Start: 08-05-2024 End: 08-05-2024 ambulatory Nila Kashuba HANDLE LATHE OPERATOR Work Phone: [facility] Comment on above: Acute back pain with sciatica, left (Primary Dx); Pain of left hip joint Start: 08-02-2024 End: 08-02-2024 ambulatory Long Golias PT Work Phone: [facility] Comment on above: Acute back pain with sciatica, left (Primary Dx); Pain of left hip joint Start: 07-26-2024 End: 07-26-2024 ambulatory Long Golias PT Work Phone: [facility] Comment on above: Acute back pain with sciatica, left (Primary Dx); Pain of left hip joint Start: 07-18-2024 End: 07-18-2024 ambulatory NilaPet Chance Televisionba HANDLE LATHE OPERATOR Work Phone: [facility] Comment on above: Acute back pain with sciatica, left (Primary Dx); Pain of left hip joint Start: 07-12-2024 End: 07-12-2024 ambulatory NilaPet Chance Televisionba HANDLE LATHE OPERATOR Work Phone: [facility] Comment on above: Acute back pain with sciatica, left (Primary Dx); Pain of left hip joint Start: 07-06-2024 End: 07-06-2024 ambulatory Long Golias PT Work Phone: [facility] Comment on above: Acute back pain with sciatica, left (Primary Dx); Pain of left hip joint Start: 06-28-2024 End: 06-28-2024 ambulatory Long Golias PT Work Phone: [facility] Comment on above: Acute back pain with sciatica, left (Primary Dx); Acute left-sided low back pain with left-sided sciatica; Left hip pain; Pain of left hip joint Start: 06-07-2024 End: 06-07-2024 Office outpatient visit 25 minutes Radha Garduno APRN.CNP Work Phone: [facility] [place] Comment on above: Acute left-sided low back pain with left-sided sciatica (Primary Dx); Left hip pain Start: 05-02-2024 End: 05-02-2024 Subsequent hospital visit by physician [facility] [place] Work Phone: Radiology Comment on above: Acute left-sided low back pain with left-sided sciatica [M54.42] Start: 05-02-2024 End: 05-02-2024 Office outpatient visit 25 minutes Radha Garduno CARD CLOTHIER.FRANCHISE DEVELOPMENT MANAGER Work Phone: [facility] Comment on above: Acute left-sided low back pain with left-sided sciatica (Primary Dx) Start: 03-18-2024 End: 03-18-2024 Patient encounter procedure Vishnu Molina MD Work Phone: General Surgery Comment on above: Other dysphagia (Radha gurpreet Dx); Wang's esophagus without dysplasia Start: 03-08-2024 ambulatory Nurse Card Adm in [facility] Work Phone: Cardiology Comment on above: Stress Test Instruct ions for 03/14/24 Start: 03-08-2024 E-mail encounter barbie velasco caregiver Nurse Card Admin [facility] Work Phone: Cardiology Start: 02-10-2024 Telephone encounter Vishnu Molina MD Work Phone: General Surgery Comment on above: Results Start: 02-08-2024 ambulatory VISHNU MOLINA Facil ity:[facility] Start: 02-08-2024 End: 02-08-2024 Subsequent hospital visit by physician Vishnu Molina MD Work Phone: [facility] End[facility] Comment on above: Gastroesophageal ref lux disease, unspecified whether esophagitis present [K21.9] Start: 02-05-2024 Telephone encounter Kofi Mosquera [facility] Surgery Comment on above: Pre op GI CALL Start: 01-25-2024 End: 01-25-2024 Office outpatient visit 25 minutes Radha Garduno CARD CLOTHIER.FRANCHISE DEVELOPMENT MANAGER Work Phone: [facility] Comment on above: Chest discomfort (Pr imary Dx); Chest pain, unspecified type; Gastroesophageal reflux disease, unspecified whether esophagitis present Start: 01-20-2024 End: 01-20-2024 [facility] Start: 01-20-2024 End: 01-20-2024 Patient encounter procedure Rafa Hawkins BIBI.FRANCHISE DEVELOPMENT MANAGER Work Phone: [facility] Comment on above: Right-sided chest pa in (Primary Dx) Start: 12-17-2023 ambulatory Radha Garduno APRN.FRANCHISE DEVELOPMENT MANAGER Work Phone: [facility] [place] Comment on above: Test results Start: 12-16-2023 Telephone encounter Radha pope APRN.FRANCHISE DEVELOPMENT MANAGER Work Phone: [facility] [place] Comment on above: Results Start: 12-15-2023 End: 12-15-2023 Subsequent hospital visit by physician Us [facility] Work Phone: Radiology Comment on above: Pain of upper abdome n [R10.10] Start: 12-15-2023 End: 12-15-2023 Office outpatient visit 25 minutes Radha Garduno APRN.FRANCHISE DEVELOPMENT MANAGER Work Phone: [facility] [place] Comment on above: Pain of upper abdome n (Primary Dx) Start: 11-26-2023 End: 11-26-2023 Subsequent hospital visit by physician Xr [facility] [place] Work Phone: Radiology Comment on above: Acute pain of left k nee [M25.562] Start: 10-12-2023 End: 09-06-2024 Telephone encounter Vishnu Molina MD Work Phone: General Surgery Comment on above: 02/08/2024 colon medin a; Waitlist Maintenance Start: 10-04-2023 ambulatory Vishnu tony MD Work Phone: General Surgery Comment on above: Upcoming colonoscopy Start: 09-27-2023 Refill Hollie Ballard MD Work Phone: [facility] [place] Comment on above: Refill Request Start: 08-28-2023 ambulatory Radha Garduno APRN.FRANCHISE DEVELOPMENT MANAGER Work Phone: [facility] [place] Comment on above: labs Start: 08-28-2023 E-mail encounter fro m caregiver Radha Garduno APRN.FRANCHISE DEVELOPMENT MANAGER Work Phone: [facility] Start: 08-25-2023 End: 08-25-2023 Office outpatient visit 25 minutes Radha Pendletonagen CARD CLOTHIER.FRANCHISE DEVELOPMENT MANAGER Work Phone: [facility] [place] Comment on above: PCOS (polycystic ova sudha syndrome) (Primary Dx) Start: 08-18-2023 ambulatory Radha Garduno CARD CLOTHIER.FRANCHISE DEVELOPMENT MANAGER Work Phone: [facility] [place] Comment on above: Facial hair Start: 07-31-2023 Telephone encounter Radha Helder pope CARD CLOTHIER.FRANCHISE DEVELOPMENT MANAGER Work Phone: [facility] [place] Comment on above: Results Start: 04-23-2023 Telephone encounter Radha gillespiekrzysztof CARD CLOTHIER.FRANCHISE DEVELOPMENT MANAGER Work Phone: [facility] [place] Comment on above: Results Start: 04-20-2023 End: 04-20-2023 Office outpatient visit 25 minutes Radha Garduno CARD CLOTHIER.FRANCHISE DEVELOPMENT MANAGER Work Phone: [facility] [place] Comment on above: LLQ pain (Primary Dx ) Start: 04-14-2023 Refill Hollie Ballard MD Work Phone: [facility] [place] Comment on above: Refill Request Start: 02-03-2023 ambulatory Sharon Garcia on PA-C Work Phone: [facility] Comment on above: Pain Start: 02-02-2023 End: 02-02-2023 Patient encounter procedure Sharon Ellison PA-C Work Phone: [facility] Comment on above: Somatic dysfunction of spine, thoracic (Primary Dx); Somatic dysfunction of spine, lumbar; Somatic dysfunction of left sacroiliac joint Start: 01-26-2023 End: 01-26-2023 Patient encounter procedure Josh Johnson MD Work Phone: [facility] Comment on above: Acute hip pain, left (Primary Dx) Start: 01-26-2023 End: 01-26-2023 Subsequent hospital visit by physician Xr [facility] [place] Work Phone: Radiology Comment on above: Acute hip pain, left [M25.552] Start: 01-04-2023 Refill Sharon Garcia on PA-C Work Phone: [facility] Comment on above: Refill Request Start: 10-20-2022 End: 10-20-2022 Office outpatient visit 15 minutes Radha Garduno APRN.FRANCHISE DEVELOPMENT MANAGER Work Phone: [facility] Comment on above: LLQ pain (Primary Dx ) Start: 10-01-2022 End: 10-01-2022 Emergency department patient visit HOLLIE BALLARD MD Facility:B Start: 10-01-2022 End: 10-01-2022 Emergency department patient visit TRESSA VERA [facility] Start: 08-27-2022 End: 08-27-2022 Emergency department patient visit [facility] Start: 08-26-2022 End: 08-26-2022 Emergency department patient visit BETHANY PAZ Facility:[facility] Start: 08-26-2022 End: 08-26-2022 Emergency department patient visit DR BETHANY PAZ MD [facility] Start: 06-24-2022 End: 06-24-2022 Patient encounter procedure Sharon Ellison PA-C Work Phone: [facility] Comment on above: Mixed common migrain e and muscle contraction headache (Primary Dx); Bruxism; TMJ syndrome Start: 06-23-2022 ambulatory Hollie Ballard MD Work Phone: [facility] [place] Start: 06-23-2022 Patient encounter procedure Hollie Ballard MD Work Phone: [facility] Comment on above: Appointment schedule d. Start: 05-19-2022 End: 05-19-2022 Emergency department patient visit Dr. Hollie Ballard [facility] Start: 05-19-2022 End: 05-19-2022 Patient encounter procedure Bernabe Islas APRN.FRANCHISE DEVELOPMENT MANAGER Work Phone: [facility] Comment on above: Viral illness (Prima ry Dx) Start: 04-16-2022 Telephone encounter Hollie Ballard MD Work Phone: [facility] [place] Comment on above: Results Start: 03-24-2022 ambulatory Hollie Ballard MD Work Phone: [facility] [place] Comment on above: bloodwork Start: 03-07-2022 End: 03-07-2022 Emergency department patient visit Dr. Hollie Ballard [facility] Start: 01-21-2022 End: 01-21-[address] Hollie Ballard Work Phone: [facility] Start: 01-04-2022 End: 01-04-2022 Emergency department patient visit Dr. Hollie Ballard [facility] Start: 10-09-2021 End: 10-09-2021 Subsequent hospital visit by physician DANNY MONTERO Comment on above: ORAL PAIN / TRIAGE Procedures Date Procedure Procedure Detail Performing Clinician Start: 04-06-2025 Mri any jt lower extrem w/o contrast matrl Maikel Hector PA-C Work Phone: Start: 01-26-2025 Ct head/brain w/o contrast material Syl Tai CARD CLOTHIER.FRANCHISE DEVELOPMENT MANAGER Work Phone: Start: 01-12-2025 Adult depression screening assessment Syl Tai CARD CLOTHIER.FRANCHISE DEVELOPMENT MANAGER Work Phone: Start: 01-11-2025 Plain chest X-ray Dr. Hollie Ballard MD Work Phone: Start: 01-04-2025 End: 01-04-2025 Arthrocentesis aspir&/inj major jt/bursa w/us Nay Reinoso DO Work Phone: Start: 11-30-2024 Radiologic exam chest 2 views Giuseppe Dickey MD Work Phone: Start: 11-23-2024 Arthrocentesis aspir&/inj major jt/bursa w/us Maggy Hayes PA-C Work Phone: Start: 09-23-2024 Mri any jt lower extrem w/o contrast matrl Maggy Hayes PA-C Work Phone: Start: 09-08-2024 Radex hip unilateral with pelvis 2-3 views Maggy Hayes PA-C Work Phone: Start: 05-02-2024 Radex spine lumbosacral 2/3 views Ron Garduno CARD CLOTHIER.FRANCHISE DEVELOPMENT MANAGER Work Phone: Start: 02-08-2024 Esophagogastroduodenoscopy transoral diagnostic Vishnu Molina MD Work Phone: Start: 02-08-2024 Colonoscopy flx dx w/collj spec when pfrmd Vishnu Molina MD Work Phone: Start: 01-25-2024 Ecg routine ecg w/least 12 lds i&r only [facility] Provider Start: 01-20-2024 Plain chest X-ray Start: 12-15-2023 Us abdominal real time w/image limited Radha Garduno CARD CLOTHIER.FRANCHISE DEVELOPMENT MANAGER Work Phone: Start: 11-26-2023 Radiologic exam knee complete 4/more views Bernabe Islas CARD CLOTHIER.FRANCHISE DEVELOPMENT MANAGER Work Phone: Start: 04-20-2023 Urnls dip stick/tablet rgnt auto w/o microscopy Radha Garduno CARD CLOTHIER.FRANCHISE DEVELOPMENT MANAGER Work Phone: Start: 01-26-2023 Radex hip unilateral with pelvis 2-3 views Josh Johnson MD Work Phone: Start: 08-27-2022 Computed tomography of abdomen and pelvis with intravenous contrast Start: 05-19-2022 X-ray of soft tissue of neck Dr. Hollie Ballard Work Phone: Start: 03-07-2022 Computed tomography of abdomen and pelvis with intravenous contrast Dr. Hollie Ballard Work Phone: Start: 01-04-2022 X-ray of chest posteroanterior view Dr. Hollie Ballard Work Phone: Start: 12-30-2021 Adult depression screening assessment Hollie Ballard MD Work Phone: Start: 12-31-2020 H/O: surgery H/O unilateral oophorectomy Dr. Hollie Ballard Work Phone: Comment on above: left Plan of Treatment Date Care Activity Detail Author Start: 09-04-2026 Urine microalbumin profile [facility] Start: 01-12-2026 Anxiety Screening Anxiety Screening [facility] Start: 01-12-2026 Depression Screening Depression Screening [facility] Start: 12-20-2025 Anxiety Screening Anxiety Screening [facility] Comment on above: Postponed from 2006 (Declined at t his time) Start: 12-20-2025 Covid-19 Vaccine () Covid-19 Vaccine ( season) [facility] Comment on above: Postponed from 07/03/2024 (Declined at t his time) Start: 12-20-2025 Hepatitis B Vaccine (1 of 3 - 19+ 3-dose series) Hepatitis B Vaccine (1 of 3 - 19+ 3-dose series) [facility] Comment on above: Postponed from 2007 (Declined at t his time) Start: 12-20-2025 Pneumococcal vaccination Pneumococcal Vaccine (1 of 2 - PCV) [facility] Comment on above: Postponed from 2007 (Declined at t his time) Start: 08-14-2025 End: 08-14-2025 Patient encounter procedure 08/14/2025 8:30 AM EDT Office Visit [facility] [place] [address] [place] [address] [place] [address] [place] [address] LT HIP POST [facility] Comment on above: LT HIP POST OP Start: 08-11-2025 End: 08-11-2025 Patient encounter procedure 08/11/2025 8:00 AM EDT Office Visit [facility] [place] [address] [place] [address] Syl Tai APRN.FRANCHISE DEVELOPMENT MANAGER [address] [facility] [place] [address] 6 month exam [facility] [place] Comment on above: 6 month exam Start: 07-26-2025 End: 07-26-2025 ambulatory 07/26/2025 9:00 AM EDT OT/PT/Speech Visit [facility] [address] [place] [address] O'KevinKaitlinMacey, PT Tear of left acetabular labrum, initial encounter [S73.192A] [facility] Comment on above: Tear of left acetabular labrum, initial encounter [S73.192A] Start: 07-19-2025 End: 07-19-2025 ambulatory 07/19/2025 9:00 AM EDT OT/PT/Speech Visit [facility] [address] [place] [address] O'KevinBillyMacey, PT Tear of left acetabular labrum, initial encounter [S73.192A] [facility] Comment on above: Tear of left acetabular labrum, initial encounter [S73.192A] Start: 07-12-2025 End: 07-12-2025 ambulatory 07/12/2025 9:00 AM EDT OT/PT/Speech Visit [facility] [address] [place] [address] O'KevinBillyMacey, PT Tear of left acetabular labrum, initial encounter [S73.192A] [facility] Comment on above: Tear of left acetabular labrum, initial encounter [S73.192A] Start: 07-05-2025 End: 07-05-2025 ambulatory [facility] Comment on above: Tear of left acetabular labrum, initial encounter [S73.192A] Start: 07-03-2025 Influenza vaccination [facility] Start: 06-28-2025 End: 06-28-2025 ambulatory 06/28/2025 9:00 AM EDT OT/PT/Speech Visit [facility] [address] [place] [address] O'Kevin, Macey, PT Tear of left acetabular labrum, initial encounter [S73.192A] [facility] Comment on above: Tear of left acetabular labrum, initial encounter [S73.192A] Start: 06-21-2025 End: 06-21-2025 ambulatory 06/21/2025 9:45 AM EDT OT/PT/Speech Visit [facility] [address] [place] [address] O'Kevin, Macey, PT Tear of left acetabular labrum, initial encounter [S73.192A] [facility] Comment on above: Tear of left acetabular labrum, initial encounter [S73.192A] Start: 06-14-2025 End: 06-14-2025 ambulatory 06/14/2025 9:00 AM EDT OT/PT/Speech Visit [facility] [address] [place] [address] O'Kevin, Macey, PT Tear of left acetabular labrum, initial encounter [S73.192A] [facility] Comment on above: Tear of left acetabular labrum, initial encounter [S73.192A] Start: 06-12-2025 End: 06-12-2025 Patient encounter procedure 06/12/2025 1:50 PM EDT Office Visit [facility] [place] [address] [place] [address] [place] [address] [place] [address] LEFT HIP [facility] [place] Comment on above: LEFT HIP Start: 06-07-2025 End: 06-07-2025 ambulatory 06/07/2025 9:45 AM EDT OT/PT/Speech Visit [facility] [address] [address] O'Kevin, Macey, PT Tear of left acetabular labrum, initial encounter [S73.192A] [facility] Comment on above: Tear of left acetabular labrum, initial encounter [S73.192A] Start: 05-31-2025 End: 05-31-2025 ambulatory 05/31/2025 9:00 AM EDT OT/PT/Speech Visit [facility] [address] [place] [address] O'Kevin, Macey, PT Tear of left acetabular labrum, initial encounter [S73.192A] [facility] Comment on above: Tear of left acetabular labrum, initial encounter [S73.192A] Start: 05-24-2025 End: 05-24-2025 ambulatory 05/24/2025 12:45 PM EDT OT/PT/Speech Visit [facility] [address] [address] O'Kevin, Macey, PT Tear of left acetabular labrum, initial encounter [S73.192A] [facility] Comment on above: Tear of left acetabular labrum, initial encounter [S73.192A] Start: 05-17-2025 End: 05-17-2025 ambulatory 05/17/2025 12:45 PM EDT OT/PT/Speech Visit [facility] [address] [place] [address] O'Kevin, Macey, PT Tear of left acetabular labrum, initial encounter [S73.192A] [facility] Comment on above: Tear of left acetabular labrum, initial encounter [S73.192A] Start: 05-16-2025 End: 05-16-2025 Patient encounter procedure 05/16/2025 9:30 AM EDT Office Visit [facility] [address] [place] [address] Maikel Hector PA-C [address] [facility] [place] [address] LEFT HIP [facility] Comment on above: LEFT HIP Start: 05-10-2025 End: 05-10-2025 ambulatory 05/10/2025 1:30 PM EDT OT/PT/Speech Visit [facility] [address] [place] [address] Macey Kaiser PT Tear of left acetabular labrum, initial encounter [S73.192A] [facility] Comment on above: Tear of left acetabular labrum, initial encounter [S73.192A] Start: 05-01-2025 Influenza vaccination Influenza Vaccine (#1) [facility] Comment on above: Postponed from 07/03/2024 (Declined at t his time) Start: 05-01-2025 End: 05-01-2025 ambulatory 05/01/2025 11:00 AM EDT OT/PT/Speech Visit [facility] [address] [place] [address] Macey Kaiser PT LEFT HIP [facility] Comment on above: LEFT HIP Start: 04-26-2025 End: 04-26-2025 Admission to same day surgery center 04/26/2025 9:00 AM EDT - 04/26/2025 11:45 AM EDT [facility] - [facility] [address] [place] [address] [place] [address] [place], [place] [id number] ARTHROSCOPY HIP W/ LABRAL REPAIR [facility] Surgery - [facility] Comment on above: ARTHROSCOPY HIP W/ LABRAL REPAIR Start: 04-26-2025 End: 04-26-2025 Arthroscopy hip w/acetabuloplasty ARTHROSCOPY HIP SURGICAL W/ ACETABULOPLASTY Tear of left acetabular labrum, initial encounter 04/26/2025 9:00 AM EDT [facility] Start: 04-26-2025 End: 04-26-2025 Arthroscopy hip w/femoroplasty ARTHROSCOPY HIP W/ FEMOROPLASTY Tear of left acetabular labrum, initial encounter 04/26/2025 9:00 AM EDT [facility] Start: 04-26-2025 End: 04-26-2025 Arthroscopy hip w/labral repair ARTHROSCOPY HIP W/ LABRAL REPAIR Tear of left acetabular labrum, initial encounter 04/26/2025 9:00 AM EDT [facility] Start: 04-26-2025 Subsequent hospital visit by physician 04/26/2025 9:00 AM EDT Hospital Encounter [facility] Surgery - [facility] [address] [place] [address] [place] [address] [place] [address] Tear of left acetabular labrum, initial encounter [S73.192A] [facility] - [facility] Comment on above: Tear of left acetabular labrum, initial encounter [S73.192A] Start: 04-12-2025 End: 04-12-2025 Nursing evaluation of patient and report 04/12/2025 1:00 PM EDT Nurse Visit [facility] [address] [place] [address] Nacho Kessler, RN [address] [place] [address] Pre Op Phone Enc - Left hip - [facility] Date 04/26 or 04/28 [facility] Comment on above: Pre Op Phone Enc - Left hip - [facility] OR Date 04/26 or 04/28 Start: 04-10-2025 End: 04-10-2025 Patient encounter procedure 04/10/2025 9:00 AM EDT [facility] [address] [place] [address] [place] [address] [place] [address] Dar Verma [facility] Comment on above: Follow up with Dr. Dar Verma Start: 04-06-2025 End: 04-06-2025 Patient encounter procedure 04/06/2025 7:00 AM EDT Appointment [facility] [address] [place] [address] MRI HIP WO IVCON LEFT [facility] Comment on above: MRI HIP WO IVCON LEFT Start: 03-23-2025 End: 03-23-2025 Patient encounter procedure 03/23/2025 9:00 AM EDT Office Visit [facility] [address] [place] [address] Maikel Hector PA-C [address] [facility] [address] [place] [address] Pain of left hip [M25.552] [facility] Comment on above: Pain of left hip [M25.552] Start: 03-21-2025 End: 03-21-2025 ambulatory 03/21/2025 5:15 PM EDT OT/PT/Speech Visit [facility] [address] [address] Macey Kaiser, PT M25.552 (ICD-10-CM) - Pain of left hip [facility] Comment on above: M25.552 (ICD-10-CM) - Pain of left hip Start: 03-14-2025 End: 03-14-2025 Patient encounter procedure 03/14/2025 11:30 AM EDT Office Visit [facility] [address] [address] Maggy Hayes PA-C [address] [place], [place] [id number] Continued hip pain after cortisone injection and physical therapy [facility] Comment on above: Continued hip pain after cortisone injec tion and physical therapy Start: 03-13-2025 End: 03-13-2025 ambulatory 03/13/2025 12:30 PM EDT OT/PT/Speech Visit [facility] [address] [facility] [place] [address] Macey Kaiser, PT M25.552 (ICD-10-CM) - Pain of left hip [facility] Comment on above: M25.552 (ICD-10-CM) - Pain of left hip Start: 02-21-2025 End: 02-21-2025 ambulatory 02/21/2025 8:15 AM EDT OT/PT/Speech Visit [facility] [address] [place] [address] Macey Kaiser, PT M25.552 (ICD-10-CM) - Pain of left hip [facility] Comment on above: M25.552 (ICD-10-CM) - Pain of left hip Start: 02-16-2025 End: 02-16-2025 ambulatory 02/16/2025 10:15 AM EDT OT/PT/Speech Visit [facility] [address] [place] [address] Nila Gomez, HANDLE LATHE OPERATOR [address] [place] [address] M25.552 (ICD-10-CM) - Pain of left hip [facility] Comment on above: M25.552 (ICD-10-CM) - Pain of left hip Start: 02-14-2025 End: 02-14-2025 ambulatory 02/14/2025 8:00 AM EDT OT/PT/Speech Visit [facility] [address] [place] [address] Nila Gomez, HANDLE LATHE OPERATOR [address] [place] [address] M25.552 (ICD-10-CM) - Pain of left hip [facility] Comment on above: M25.552 (ICD-10-CM) - Pain of left hip Start: 02-09-2025 End: 02-09-2025 Patient encounter procedure 02/09/2025 1:40 PM EDT Office Visit [facility] [place] [address] [place] [address] Syl Tai APRN.FRANCHISE DEVELOPMENT MANAGER [address] [place] [address] 4 wk follow up/test results [facility] [place] Comment on above: 4 wk follow up/test results Start: 02-09-2025 End: 02-09-2025 ambulatory 02/09/2025 9:30 AM EDT OT/PT/Speech Visit [facility] [address] [place] [address] Macey Kaiser, PT M25.552 (ICD-10-CM) - Pain of left hip [facility] Comment on above: M25.552 (ICD-10-CM) - Pain of left hip Start: 02-07-2025 End: 02-07-2025 ambulatory 02/07/2025 8:15 AM EDT OT/PT/Speech Visit [facility] [address] [place] [address] Macey Kaiser, PT M25.552 (ICD-10-CM) - Pain of left hip [facility] Comment on above: M25.552 (ICD-10-CM) - Pain of left hip Start: 01-31-2025 End: 01-31-2025 ambulatory 01/31/2025 8:45 AM EDT OT/PT/Speech Visit [facility] [address] [place] [address] Nila Gomez, HANDLE LATHE OPERATOR [address] [place] [address] M25.552 (ICD-10-CM) - Pain of left hip [facility] Comment on above: M25.552 (ICD-10-CM) - Pain of left hip Start: 01-26-2025 End: 01-26-2025 Patient encounter procedure 01/26/2025 1:40 PM EDT Appointment [facility] [address] [place] [address] Atypical facial pain [G50.1] [facility] Comment on above: Atypical facial pain [G50.1] Start: 01-24-2025 End: 01-24-2025 ambulatory [facility] Comment on above: M25.552 (ICD-10-CM) - Pain of left hip Start: 01-19-2025 End: 02-11-2026 CT Head WO contrast CT BRAIN WO IVCON Radiology Routine Atypical facial pain Expected: 01/19/2025, Expires: 02/11/2026 [facility] Comment on above: Expected: 01/19/2025, Expires: Start: 01-19-2025 End: 02-11-2026 US Abdomen RUQ [facility] Work Phone: Comment on above: Expected: 01/19/2025, Expires: Start: 01-19-2025 End: 01-19-2025 Patient encounter procedure 01/19/2025 7:00 AM EDT Appointment Rad[facility] [address] [place] [address] RUQ pain [R10.11] [facility]iology Comment on above: RUQ pain [R10.11] Start: 01-17-2025 End: 01-17-2025 ambulatory 01/17/2025 5:15 PM EDT OT/PT/Speech Visit [facility] [address] [place] [address] Macey Kaiser, PT M25.552 (ICD-10-CM) - Pain of left hip [facility] Comment on above: M25.552 (ICD-10-CM) - Pain of left hip Start: 01-11-2025 [facility] Start: 01-11-2025 End: 01-11-2025 [facility] Start: 01-09-2025 End: 01-09-2025 ambulatory 01/09/2025 11:00 AM EDT OT/PT/Speech Visit [facility] [address] [place] [address] Delores'Macey Brown, PT Pain of left hip [M25.552] [facility] Comment on above: Pain of left hip [M25.552] Start: 01-04-2025 End: 01-04-2025 Patient encounter procedure 01/04/2025 1:30 PM EST Office Visit [facility] [address] [place] [address] [place] [address] [place] [address] Left Hip US GUIDED INJECTION [facility] Comment on above: Left Hip US GUIDED INJECTION Start: 12-30-2024 End: 03-31-2025 CBC W Auto Differential panel - Blood COMPLETE BLOOD COUNT AND DIFFERENTIAL Lab Routine Leukocytosis, unspecified type Expected: 12/30/2024, Expires: 03/31/2025 [facility] Work Phone: Comment on above: Expected: 12/30/2024, Expires: Start: 12-27-2024 End: 12-27-2024 ambulatory 12/27/2024 1:15 PM EST OT/PT/Speech Visit [facility] [address] [facility] [place], [place] [id number] Long Warren PT [address] [facility] [place] [address] Hip [facility] Comment on above: Hip Start: 12-27-2024 End: 12-27-2024 ambulatory 12/27/2024 7:15 AM EST Results Only [facility] [address] [place] [address] [facility] Start: 12-20-2024 End: 03-21-2025 CBC W Auto Differential panel - Blood COMPLETE BLOOD COUNT AND DIFFERENTIAL Lab Routine Wellness examination Mixed hyperlipidemia Expected: 12/20/2024, Expires: 03/21/2025 [facility] Comment on above: Expected: 12/20/2024, Expires: Start: 12-20-2024 End: 03-21-2025 Comprehensive metabolic 2000 panel - Serum or Plasma COMPREHENSIVE METABOLIC PANEL Lab Routine Mixed hyperlipidemia Hyperglycemia Expected: 12/20/2024, Expires: 03/21/2025 [facility] Comment on above: Expected: 12/20/2024, Expires: Start: 12-20-2024 Depression Screening Depression Screening [facility] Comment on above: Postponed from 2006 (Declined at t his time) Start: 12-20-2024 End: 03-21-2025 Hemoglobin A1c in Blood HEMOGLOBIN A1C Lab Routine Hyperglycemia Expected: 12/20/2024, Expires: 03/21/2025 [facility] Comment on above: Expected: 12/20/2024, Expires: Start: 12-20-2024 End: 03-21-2025 Lipid 1996 panel - Serum or Plasma LIPID PANEL BASIC Lab Routine Mixed hyperlipidemia Expected: 12/20/2024, Expires: 03/21/2025 [facility] Work Phone: Comment on above: Expected: 12/20/2024, Expires: Start: 12-20-2024 End: 03-21-2025 Magnesium [Mass/volume] in Serum or Plasma MAGNESIUM Lab Routine Gastroesophageal reflux disease, unspecified whether esophagitis present Expected: 12/20/2024, Expires: 03/21/2025 [facility] Comment on above: Expected: 12/20/2024, Expires: Start: 12-20-2024 End: 12-20-2024 Patient encounter procedure 12/20/2024 11:00 AM EST Office Visit [facility] [place] [address] [place] [address] Radha Garduno APRN.FRANCHISE DEVELOPMENT MANAGER [address] [place] [address] Physical [facility] [place] Comment on above: Physical Start: 11-03-2024 End: 11-03-2024 Patient encounter procedure 11/03/2024 11:45 AM EST Office Visit Orthopa[facility] [address] [id number] Maggy Hayes PA-C [address] [place], [place] [id number] injection [facility] Comment on above: injection Start: 10-10-2024 End: 10-10-2024 Patient encounter procedure 10/10/2024 10:30 AM EST Office Visit Orth[facility] [address] [place] [address] Maggy Hayes PA-C [address] [place] [address] follow up after mri [facility] Comment on above: follow up after mri Start: 09-23-2024 End: 09-23-2024 Patient encounter procedure 09/23/2024 7:00 AM EST Appointment Radiology [address] [place] [address] Pain of left hip [M25.552] [facility] Comment on above: Pain of left hip [M25.552] Start: 09-08-2024 End: 09-08-2024 Patient encounter procedure Radiology Comment on above: Xray, left hip Left hip pain L hip Start: 08-25-2024 Covid-19 Vaccine () Covid-19 Vaccine () [facility] Comment on above: Postponed from 07/03/2023 (Declined at t his time) Start: 08-25-2024 Hepatitis B Vaccine (1 of 3 - 19+ 3-dose series) Hepatitis B Vaccine (1 of 3 - 19+ 3-dose series) [facility] Comment on above: Postponed from 2007 (Declined at t his time) Start: 08-25-2024 Hepatitis B Vaccine (1 of 3 - 3-dose series) Hepatitis B Vaccine (1 of 3 - 3-dose series) [facility] Comment on above: Postponed from 1988 (Declined at t his time) Start: 08-25-2024 Pneumococcal vaccination [facility] Comment on above: Postponed from 1994 (Declined at t his time) Start: 08-19-2024 End: 08-19-2024 ambulatory 08/19/2024 3:00 PM EDT OT/PT/Speech Visit [place] [facility] [address] [place] [address] Long Warren, PT [address] [place] [address] Acute back pain with sciatica, left [M54.42] [facility] Comment on above: Acute back pain with sciatica, left [M54 .42] Start: 08-10-2024 End: 08-10-2024 ambulatory 08/10/2024 3:30 PM EDT OT/PT/Speech Visit [facility] [address] [place] [address] [facility], HANDLE LATHE OPERATOR [address] [place] [address] Acute back pain with sciatica, left [M54.42] [facility] Comment on above: Acute back pain with sciatica, left [M54 .42] Start: 08-08-2024 End: 08-08-2024 ambulatory 08/08/2024 3:30 PM EDT OT/PT/Speech Visit [facility] [address] [place] [address] [facility], HANDLE LATHE OPERATOR [address] [place] [address] Acute back pain with sciatica, left [M54.42] [facility] Comment on above: Acute back pain with sciatica, left [M54 .42] Start: 08-05-2024 End: 08-05-2024 ambulatory 08/05/2024 2:45 PM EDT OT/PT/Speech Visit [facility] [address] [place] [address] Aleyda Gomezh, HANDLE LATHE OPERATOR [address] [place] [address] Acute back pain with sciatica, left [M54.42] [facility] Comment on above: Acute back pain with sciatica, left [M54 .42] Start: 08-02-2024 End: 08-02-2024 ambulatory 08/02/2024 11:30 AM EDT OT/PT/Speech Visit [facility] [address] [place] [address] GolLong silverio, PT [address] [place] [address] Acute back pain with sciatica, left [M54.42] [facility] Comment on above: Acute back pain with sciatica, left [M54 .42] Start: 07-26-2024 End: 07-26-2024 ambulatory 07/26/2024 2:00 PM EDT OT/PT/Speech Visit [facility] [address] [place] [address] Long Warren, PT [address] [place] [address] M54.42 (ICD-10-CM) - Acute left-sided low back pain with left-sided sciatica [facility] Comment on above: M54.42 (ICD-10-CM) - Acute left-sided lo w back pain with left-sided sciatica Start: 07-19-2024 End: 07-19-2024 ambulatory 07/19/2024 8:00 AM EDT OT/PT/Speech Visit [facility] [address] [place] [address] Nila Gomez, HANDLE LATHE OPERATOR [address] [place] [address] M54.42 (ICD-10-CM) - Acute left-sided low back pain with left-sided sciatica [facility] Comment on above: M54.42 (ICD-10-CM) - Acute left-sided lo w back pain with left-sided sciatica Start: 07-18-2024 End: 07-18-2024 ambulatory 07/18/2024 6:00 PM EDT OT/PT/Speech Visit [facility] [address] [place] [address] Nila Gomez, HANDLE LATHE OPERATOR [address] [place] [address] M54.42 (ICD-10-CM) - Acute left-sided low back pain with left-sided sciatica [facility] Comment on above: M54.42 (ICD-10-CM) - Acute left-sided lo w back pain with left-sided sciatica Start: 07-12-2024 End: 07-12-2024 ambulatory 07/12/2024 2:00 PM EDT OT/PT/Speech Visit [facility] [address] [place] [address] Aleyda Gomezh, HANDLE LATHE OPERATOR [address] [place] [address] M54.42 (ICD-10-CM) - Acute left-sided low back pain with left-sided sciatica [facility] Comment on above: M54.42 (ICD-10-CM) - Acute left-sided lo w back pain with left-sided sciatica Start: 07-06-2024 End: 07-06-2024 ambulatory 07/06/2024 3:15 PM EDT OT/PT/Speech Visit [facility] [address] [place] [address] Long Warren, PT [address] [place] [address] M54.42 (ICD-10-CM) - Acute left-sided low back pain with left-sided sciatica [facility] Comment on above: M54.42 (ICD-10-CM) - Acute left-sided lo w back pain with left-sided sciatica Start: 07-03-2024 Covid-19 Vaccine () Covid-19 Vaccine () [facility] Start: 07-03-2024 Covid-19 Vaccine () Covid-19 Vaccine () [facility] Start: 07-03-2024 Influenza vaccination [facility] Start: 06-28-2024 End: 06-28-2024 ambulatory 06/28/2024 10:00 AM EDT OT/PT/Speech Visit [facility] [address] [place] [address] Long Warren, PT [address] [place] [address] Acute left-sided low back pain with left-sided sciatica [M54.42]; Left hip pain [M25.552] [facility] Comment on above: Acute left-sided low back pain with left -sided sciatica [M54.42]; Left hip pain [M25.552] Start: 06-21-2024 End: 06-21-2024 ambulatory 06/21/2024 7:15 AM EDT Results Only [facility] [address] [place] [address] [facility] Start: 06-16-2024 End: 09-15-2024 Lipid 1996 panel - Serum or Plasma LIPID PANEL BASIC Lab Routine Mixed hyperlipidemia Expected: 06/16/2024, Expires: 09/15/2024 [facility] Work Phone: Comment on above: Expected: 06/16/2024, Expires: Start: 05-11-2024 End: 05-11-2024 Patient encounter procedure 05/11/2024 1:45 PM EDT Office Visit Otolaryngology [address] [place] [address] Grant Mann MD [address] [address] Other dysphagia [R13.19] Comment:Pt feels lump when swallowing s/p EGD Otolaryngology Comment on above: Other dysphagia [R13.19] Comment:Pt feel s lump when swallowing s/p EGD Start: 05-01-2024 Influenza vaccination Influenza Vaccine (#1) [facility] Comment on above: Postponed from 07/03/2023 (Declined at t his time) Start: 03-18-2024 End: 03-18-2024 Patient encounter procedure 03/18/2024 10:00 AM EDT Office Visit General Surgery [address] [place] [address] Vishnu Molina MD [address] [id number] follow up from procedure General Surgery Comment on above: follow up from procedure Start: 03-14-2024 End: 03-14-2024 Nursing evaluation of patient and report 03/14/2024 1:50 PM EDT Nurse Visit Cardiology [address] [place] [id number] Wstr, Nurse Card Admin [facility] [address] [place] [id number] Chest discomfort [R07.89] Cardiology Comment on above: Chest discomfort [R07.89] Start: 01-20-2024 [facility] Start: 12-17-2023 End: 03-17-2024 Bacteria identified in Urine by Culture [facility] Work Phone: Comment on above: Expected: 12/17/2023, Expires: Start: 12-17-2023 End: 03-17-2024 Hepatic function 2000 panel - Serum or Plasma [facility] Work Phone: Comment on above: Expected: 12/17/2023, Expires: 4 Start: 12-17-2023 End: 03-17-2024 Urinalysis complete panel - Urine [facility] Work Phone: Comment on above: Expected: 12/17/2023, Expires: 4 Start: 12-15-2023 End: 03-15-2024 Comprehensive metabolic 2000 panel - Serum or Plasma [facility] Work Phone: Comment on above: Expected: 12/15/2023, Expires: Start: 12-15-2023 End: 03-15-2024 Lipase [Enzymatic activity/volume] in Serum or Plasma [facility] Work Phone: Comment on above: Expected: 12/15/2023, Expires: 4 Start: 11-03-2023 End: 01-03-2024 Alanine aminotransferase [Enzymatic activity/volume] in Serum or Plasma ALT/SGPT Lab Routine Mixed hyperlipidemia Expected: 11/03/2023, Expires: 01/03/2024 [facility] Work Phone: Comment on above: Expected: 11/03/2023, Expires: Start: 11-03-2023 End: 01-03-2024 Lipid 1996 panel - Serum or Plasma LIPID PANEL BASIC Lab Routine Mixed hyperlipidemia Expected: 11/03/2023, Expires: 01/03/2024 [facility] Work Phone: Comment on above: Expected: 11/03/2023, Expires: Start: 11-02-2023 Behavioral Health Screening Behavioral Health Screening [facility] Start: 11-02-2023 Depression Assessment Depression Assessment [facility] Start: 08-25-2023 End: 11-24-2023 CBC W Auto Differential panel - Blood [facility] Work Phone: Comment on above: Expected: 08/25/2023, Expires: Start: 08-25-2023 End: 11-24-2023 Comprehensive metabolic 2000 panel - Serum or Plasma [facility] Work Phone: Comment on above: Expected: 08/25/2023, Expires: Start: 08-25-2023 End: 11-24-2023 Hemoglobin A1c in Blood [facility] Work Phone: Comment on above: Expected: 08/25/2023, Expires: Start: 08-25-2023 End: 11-24-2023 TESTOSTERONE, FREE AND TOTAL [facility] Work Phone: Comment on above: Expected: 08/25/2023, Expires: 4 Start: 08-25-2023 End: 11-24-2023 Thyrotropin [Units/volume] in Serum or Plasma [facility] Work Phone: Comment on above: Expected: 08/25/2023, Expires: 4 Start: 08-25-2023 End: 11-24-2023 Thyroxine (T4) free [Mass/volume] in Serum or Plasma [facility] Work Phone: Comment on above: Expected: 08/25/2023, Expires: 4 Start: 07-24-2023 End: 09-23-2023 Alanine aminotransferase [Enzymatic activity/volume] in Serum or Plasma ALT/SGPT Lab Routine Mixed hyperlipidemia Expected: 07/24/2023, Expires: 09/23/2023 [facility] Work Phone: Comment on above: Expected: 07/24/2023, Expires: 3 Start: 07-24-2023 End: 09-23-2023 Lipid 1996 panel - Serum or Plasma LIPID PANEL BASIC Lab Routine Mixed hyperlipidemia Expected: 07/24/2023, Expires: 09/23/2023 [facility] Work Phone: Comment on above: Expected: 07/24/2023, Expires: 3 Start: 07-03-2023 Covid-19 Vaccine () Covid-19 Vaccine () [facility] Start: 07-03-2023 Influenza vaccination [facility] Start: 04-14-2023 End: 06-14-2023 CBC W Auto Differential panel - Blood CBC + DIFF Lab Routine Hyperglycemia Expected: 04/14/2023, Expires: 06/14/2023 [facility] Work Phone: Comment on above: Expected: 04/14/2023, Expires: 3 Start: 04-14-2023 End: 06-14-2023 Comprehensive metabolic 2000 panel - Serum or Plasma COMP METABOLIC PANEL Lab Routine Mixed hyperlipidemia Expected: 04/14/2023, Expires: 06/14/2023 [facility] Work Phone: Comment on above: Expected: 04/14/2023, Expires: 3 Start: 04-14-2023 End: 06-14-2023 Hemoglobin A1c in Blood HGB A1C Lab Routine Hyperglycemia Expected: 04/14/2023, Expires: 06/14/2023 [facility] Work Phone: Comment on above: Expected: 04/14/2023, Expires: 3 Start: 04-14-2023 End: 06-14-2023 Lipid 1996 panel - Serum or Plasma LIPID PANEL BASIC Lab Routine Mixed hyperlipidemia Expected: 04/14/2023, Expires: 06/14/2023 [facility] Work Phone: Comment on above: Expected: 04/14/2023, Expires: 3 Start: 12-30-2022 Adult depression screening assessment DEPRESSION SCREENING [facility] Start: 11-02-2022 DEPRESSION ASSESSMENT DEPRESSION ASSESSMENT [facility] Start: 10-16-2022 End: 12-16-2022 Lipid 1996 panel - Serum or Plasma LIPID PANEL BASIC Lab Routine Mixed hyperlipidemia Expected: 10/16/2022, Expires: 12/16/2022 [facility] Work Phone: Comment on above: Expected: 10/16/2022, Expires: 3 Start: 07-03-2022 Influenza vaccination [facility] Start: 05-28-2022 End: 07-28-2022 Thyrotropin [Units/volume] in Serum or Plasma TSH BLD Lab Routine Mixed hyperlipidemia Expected: 05/28/2022, Expires: 07/28/2022 [facility] Work Phone: Comment on above: Expected: 05/28/2022, Expires: 2 Start: 04-16-2022 End: 06-16-2022 Hepatic function 2000 panel - Serum or Plasma HEPATIC FUNCTION PNL Lab Routine Mixed hyperlipidemia Expected: 04/16/2022, Expires: 06/16/2022 [facility] Work Phone: Comment on above: Expected: 04/16/2022, Expires: Start: 11-17-2021 COVID-19 VACCINE (4 - Booster for Pfizer series) COVID-19 VACCINE (4 - Booster for Pfizer series) [facility] Start: 11-17-2021 Covid-19 Vaccine (4 - Pfizer series) Covid-19 Vaccine (4 - Pfizer series) [facility] Start: 11-02-2021 DEPRESSION ASSESSMENT DEPRESSION ASSESSMENT [facility] Start: 12-05-2020 PAP TESTING PAP TESTING [facility] Start: 2018 HPV TESTING HPV TESTING [facility] Start: 2015 HPV Vaccine (1 - 3-dose SCDM series) HPV Vaccine (1 - 3-dose SCDM series) [facility] Start: 2007 Hepatitis B Vaccine (1 of 3 - 19+ 3-dose series) Hepatitis B Vaccine (1 of 3 - 19+ 3-dose series) [facility] Start: 2007 ONE PNEUMOVAX PRIOR TO AGE 65 ONE PNEUMOVAX PRIOR TO AGE 65 [facility] Start: 2007 Pneumococcal vaccination Pneumococcal Vaccine (1 of 2 - PCV) [facility] Start: 2006 Anxiety Screening Anxiety Screening [facility] Start: 2006 Depression Screening Depression Screening [facility] Start: 1994 PNEUMOCOCCAL (1 - PCV) PNEUMOCOCCAL (1 - PCV) [facility] Start: 1994 Pneumococcal vaccination [facility] Start: 1988 HEPATITIS B (1 of 3 - 3-dose series) HEPATITIS B (1 of 3 - 3-dose series) [facility] Start: 1988 Hepatitis B Vaccine (1 of 3 - 3-dose series) Hepatitis B Vaccine (1 of 3 - 3-dose series) [facility] ECG COMPLETE [facility] Work Phone: Comment on above: Ordered: 01/25/2024 End: 01-24-2025 Echocardiography ECHO Cardiology Routine Chest discomfort Chest pain, unspecified type 1 Occurrences starting 01/25/2024 until 01/24/2025 [facility] Work Phone: Comment on above: 1 Occurrences starting 01/25/2024 until 01/24/2025 End: 01-24-2025 EXERCISE STRESS ECG (WITHOUT IMAGING) EXERCISE STRESS ECG (WITHOUT IMAGING) Cardiology Routine Chest discomfort Chest pain, unspecified type 1 Occurrences starting 01/25/2024 until 01/24/2025 [facility] Work Phone: Comment on above: 1 Occurrences starting 01/25/2024 until 01/24/2025 End: 11-10-2025 Guidance for injection of Hip IMAGING GUIDED HIP INJECTION LEFT Radiology Routine Pain of left hip 1 Occurrences starting 10/10/2024 until 11/10/2025 [facility] Work Phone: Comment on above: 1 Occurrences starting 10/10/2024 until 11/10/2025 Influenza virus A an d B RNA and SARS-CoV-2 (COVID-19) N gene panel - Respiratory specimen by TANNER with probe detection COVID WITH FLUA+B, ROUTINE Microbiology Routine Viral illness Ordered: 05/19/2022 [facility] Work Phone: Comment on above: Ordered: 05/19/2022 End: 10-08-2025 MR Hip - left WO contrast MRI HIP WO IVCON LEFT Radiology Routine Pain of left hip 1 Occurrences starting 09/08/2024 until 10/08/2025 [facility] Work Phone: Comment on above: 1 Occurrences starting 09/08/2024 until 10/08/2025 Patient Education [facility] Work Phone: Patient referral [facility] Work Phone: SURGICAL PATHOLOGY [facility] Work Phone: Comment on above: Release Upon Ordering for 1 Occurrences starting 02/08/2024, 1 completed UA DIP, URINE (POC) UA DIP, URIN E (POC) Lab Routine LLQ pain Ordered: 04/20/2023 [facility] Work Phone: Comment on above: Ordered: 04/20/2023 End: 06-01-2025 XR Lumbar spine 3 Views XR LUMBAR GENERAL 3V AP/LAT/L5-S1 Radiology Routine Acute left-sided low back pain with left-sided sciatica 1 Occurrences starting 05/02/2024 until 06/01/2025 [facility] Work Phone: Comment on above: 1 Occurrences starting 05/02/2024 until 06/01/2025 XR Lumbar spine 3 Views XR LUMBA R GENERAL 3V AP/LAT/L5-S1 Radiology Routine Acute left-sided low back pain with left-sided sciatica 05/02/2024 8:48 AM EDT [facility] Immunizations Immunization Date Immunization Notes Care Provider Layo mace 08-02-2020 Influenza, injectabl e, Madin Deena Canine Kidney, preservative free, quadrivalent Hollie Ballard MD Work Phone: [facility] Work Phone: 08-02-2020 influenza virus vaccine, unspecified formulation Radha Garduno APRN.CNP Work Phone: [facility] 08-16-[address] Hollie Ballard Work Phone: [facility] 08-16-2019 influenza, seasonal, injectable, preservative free Hollie Ballard MD Work Phone: [facility] Work Phone: 09-04-2016 influenza, injectabl e, quadrivalent, contains preservative Hollie Ballard MD Work Phone: [facility] 09-04-2016 tetanus toxoid, redu good diphtheria toxoid, and acellular pertussis vaccine, adsorbed Hollie Ballard MD Work Phone: [facility] 09-22-2015 influenza, seasonal, injectable, preservative free Hollie Ballard MD Work Phone: [facility] Work Phone: 08-29-2013 influenza virus vaccine, unspecified formulation Hollie Ballard MD Work Phone: [facility] 07-18-1993 diphtheria, tetanus toxoids and acellular pertussis vaccine Hollie Ballard MD Work Phone: [facility] Work Phone: 07-18-1993 trivalent poliovirus vaccine, live, oral Hollie Ballard MD Work Phone: [facility] Work Phone: 07-18-1993 tuberculin skin test ; purified protein derivative solution, intradermal Long Golias PT Work Phone: [facility] 01-14-1990 diphtheria, tetanus toxoids and pertussis vaccine Hollie Ballard MD Work Phone: [facility] Work Phone: 01-14-1990 haemophilus influenz ae type b vaccine, PRP-D conjugate Hollie Ballard MD Work Phone: [facility] Work Phone: 01-14-1990 trivalent poliovirus vaccine, live, oral Hollie Ballard MD Work Phone: [facility] Work Phone: 10-06-1989 measles, mumps and rubella virus vaccine Hollie Ballard MD Work Phone: [facility] Work Phone: 10-06-1989 tuberculin skin test ; purified protein derivative solution, intradermal Long Golias PT Work Phone: [facility] 01-09-1989 diphtheria, tetanus toxoids and pertussis vaccine Hollie Ballard MD Work Phone: [facility] Work Phone: 1988 diphtheria, tetanus toxoids and pertussis vaccine Hollie Ballard MD Work Phone: [facility] Work Phone: 1988 trivalent poliovirus vaccine, live, oral Hollie Ballard MD Work Phone: [facility] Work Phone: 1988 diphtheria, tetanus toxoids and pertussis vaccine Hollie Ballard MD Work Phone: [facility] Work Phone: 1988 trivalent poliovirus vaccine, live, oral Hollie Ballard MD Work Phone: [facility] Work Phone: Payers Date Payer Category Payer Private Health Insurance AVM [id number] 2024 Self-pay [id number] 2023 Private Health Insurance [id number] 2023 Private Health Insurance AVM [id number] 2022 Unknown [id number] 2019 Unknown [employer] PPO [id number] 2019-Present [phone] [address] [place] [address] PPO [id number] 2019 Unknown [id number] 2016 Unknown [id number] 1988 Unknown [id number] 1988 Unknown [id number] Unknown [id number] Unknown [id number] Unknown [id number] Unknown [id number] Social History Date Type Detail Facility Start: 03-07-2022 End: 01-20-2024 Tobacco smoking status NEIS Tobacco smoking consumption unknown [facility] Start: 1990 Sex Assigned At Not on file [facility] Start: 10-14-2019 Rare [facility] Start: 10-14-2019 None [facility] Start: 10-14-2019 Spouse/ Significant Other;With Family [facility] Start: 01-29-2021 Cigarettes [facility] Start: 1990 Sex Assigned At Female [facility] Start: 12-31-2021 End: 09-20-2024 Tobacco smoking status NEIS Smokes tobacco daily [facility] History of tobacco use Cigarette Smoker [facility] Start: 03-07-2022 End: 06-12-2025 Alcohol intake Current drinker of alcohol (finding) [facility] Start: 03-07-2022 End: 04-20-2023 Alcohol intake [facility] Start: 12-30-2021 End: 10-18-2022 History SDOH Alcohol Frequency 3 [facility] Start: 12-30-2021 End: 10-18-2022 History SDOH Alcohol Std Drinks 1 [facility] Start: 12-31-2021 History SDOH Alcohol Comment Social [facility] Start: 12-30-2021 History SDOH Social Connections Phone 4 [facility] Start: 12-30-2021 End: 10-18-2022 History SDOH Social Connections Get Together 2 [facility] Start: 12-30-2021 End: 10-18-2022 History SDOH Financial 5 [facility] Start: 02-25-2022 End: 04-15-2022 Exposure to SARS-CoV-2 (event) Not sure [facility] Start: 12-31-2021 End: 09-20-2024 Tobacco use and exposure Smokeless tobacco non-user [facility] Work Phone: Start: 08-26-2022 Tobacco smoking status Heavy tobacco smoker (finding) [facility] Start: 10-18-2022 History SDOH Social Connections Get Together 98 [facility] Start: 10-17-2022 End: 04-20-2023 Social connection and isolation panel [facility] Start: 10-03-2012 How often do you get together with friends or relatives? Patient refused [facility] Do you belong to any clubs or organizations such as restorationism groups, unions, fraternal or athletic groups, or school groups? No [facility] Are you now , , , , never or living with a partner? [facility] How often to you hav e a drink containing alcohol? Monthly or less [facility] How many standard dr inks containing alcohol do you have on a typical day? 3 or 4 [facility] How often do you hav e 6 or more drinks on 1 occasion? Never [facility] Do you feel stress - tense, restless, nervous, or anxious, or unable to sleep at night because your mind is troubled all the time - these days [OSQ] Only a little [facility] (I/We) worried rolando dill (my/our) food would run out before (I/we) got money to buy more. Never true [facility] Start: 11-19-2021 Gender identity Identifies as female gender (finding) [facility] Start: 11-19-2021 Sexual orientation Heterosexual (finding) [facility] Do you feel stress - tense, restless, nervous, or anxious, or unable to sleep at night because your mind is troubled all the time - these days [OSQ] Very much [facility] How many standard dr inks containing alcohol do you have on a typical day? 1 or 2 [facility] How often do you hav e 6 or more drinks on 1 occasion? Less than monthly [facility] Start: 01-11-2025 Sex Female (finding) [facility] Medical Equipment Procedure Code Equipment Code Equipment Origin al Text Equipment Identifier Dates Fibertak Hip Susan f [employer] [place] 1.8mm [id number] Start: 04-26-2025 Fibertak Hip Susan f [employer] [place] 1.8mm [id number] Start: 04-26-2025 Fibertak Hip Susan f [employer] [place] 1.8mm [id number] Start: 04-26-2025 Functional Status Date Assessment Result Facility 10-01-2022 Functional Status Up ad damari Izzy G[facility] [place] 10-01-2022 Functional Status Standard Safet y ID band on, Allergy Band on, Call device within reach, Bed in low position, Wheels locked, Visitor at bedside [facility] 08-26-2022 Functional Status Resting [facility] 05-15-2015 Are you deaf, or do you have serious difficulty hearing No 05/15/2015 11:02 AM Jarad Cordon LPN No [facility] 05-15-2015 Are you blind, or do you have serious difficulty seeing, even when wearing glasses No 05/15/2015 11:02 AM Jarad oCrdon LPN No [facility] 05-15-2015 Do you have serious difficulty walking or climbing stairs No 05/15/2015 11:02 AM Jarad Cordon LPN No [facility] 05-15-2015 Do you have difficul ty dressing or bathing No 05/15/2015 11:02 AM Jarad Cordon LPN No [facility] 05-15-2015 Because of a physica l, mental, or emotional condition, do you have difficulty doing errands alone such as visiting a physician's office or shopping No 05/15/2015 11:02 AM Jarad Cordon LPN No [facility] Mental Status Date Assessment Result Facility 01-11-2025 Cognitive function Voice/Name [facility] Work Phone: 10-01-2022 Mental Status Orientation Oriented x 4 [facility] 10-01-[address] [facility] 08-26-2022 Mental Status Oriented x 4 [facility] 05-19-2022 Cognitive function Level Of Cons ciousness Awake;Alert;Appropriate;Fol lows Commands;Responds to vocal stimuli [facility] Work Phone: 05-15-2015 Because of a physica l, mental, or emotional condition, do you have serious difficulty concentrating, remembering, or making decisions No 05/15/2015 11:02 AM Jarad Cordon LPN No [facility] Clinical Notes 01-10-2015 to 08-21-2025 O'Macey Brown, PT - 07/12/2025 9:25 AM EDMacey Calle, PT - 07/12/2025 8:55 AM EDTTelephone Encounter - Kaylene Ceunca LPN - 07/05/2025 1:42 PM Macey Ma, PT - 06/28/2025 9:20 AM EDT Note Date & Type Note Facility 08-21-2025 Note HNO ID: [id number] Author: SYL TAI APRN.FRANCHISE DEVELOPMENT MANAGER Service: ? Author Type: Nurse Practitioner Type: Progress Notes Filed: 08/21/2025 14:20 Note Text: This is a 35 year old female who presents today with: Patient presents with: 6 Month Exam HISTORY OF PRESENT ILLNESS: Macey Campbell is a 35 year old female. Patient presents with: 6 Month Exam No complaints Right cheek pain- gabapentin helps but makes her very sleepy Had right hip arthroscopy- in PT The patient is a 35-year-old female with chronic sinusitis and trigeminal neuralgia, presenting for management of neuropathic facial pain and gabapentin dose adjustment. Macey is a 35-year-old female with a history of trigeminal neuralgia, presenting for follow-up. Trigeminal Neuralgia: - Reports improvement in facial pain. - Discontinued gabapentin due to excessive sedation; was taking it once daily. - Pain management with gabapentin was effective, but medication was taken sporadically due to side effects. - Denies recent weight loss, weight gain, fever, or chills. Hip Pain: - Underwent hip surgery in April to address a labral tear. - Currently in physical therapy, focusing on stretching exercises. - Reports persistent soreness with certain movements. - Recent follow-up with surgeon revealed stiffness in the hip capsule; advised to push through the pain. - Denies leg swelling. Migraine Headaches: - Increase in frequency noted recently, attributed to weather changes. - Denies changes in hearing or vision. Chronic Sinusitis: - Reports improvement in chronic sinus issues. - Denies lumps, bumps, or swelling in the neck. Denies SOB, cough, wheeze, chest pain, orthopnea, palpitations, nausea, emesis, excessive thirst, syncope, seizures, tremors, hopelessness, helplessness, or suicidal thoughts. PAST MEDICAL HISTORY: PAST MEDICAL HISTORY Diagnosis Date GERD without esophagitis 12/31/2021 Obesity, Class I, BMI 30-34.9 12/31/2021 PCOS (polycystic ovarian syndrome) Tobacco use disorder 12/31/2021 PAST SURGICAL HISTORY Procedure Laterality Date COLONOSCOPY SCREENING 02/08/2024 EGD W/O BRSH SPEC VARICIES INJ 02/08/2024 LAPS ABD PRTMANDOMENTUM DX W/WO SPEC BR/WA SPX 2014 Laparoscopy - for r/o endometriosis, foung to have a cyst PT ED OBSTETRICS AND GYNECOLOGY N/A 12/2019 laparoscopic hysterectomy - for endometriosis - Dr. Shelley REMOVAL OF OVARY(S) Right 10/24/2020 ovarian torsion REMOVAL OF OVARY(S) Left 12/2020 Dr Jo SALPINGECTOMY Right 12/27/2016 laparoscopic Right salpingectomy- ECTOPIC ALLERGIES Cleocin [Clindamycin] and Sulfa (Sulfonamide Antibiotics) MEDICATIONS Current Outpatient Medications Medication Sig omeprazole (PRILOSEC) 40 mg capsule Take 1 capsule by mouth once daily. amitriptyline (ELAVIL) 10 mg tablet Take 1 tablet by mouth daily at bedtime. metFORMIN ER (GLUCOPHAGE XR) 500 mg 24 hr tablet Take 1 tablet by mouth daily with breakfast. rizatriptan (MAXALT ARMORING MACHINE OPERATOR) 10 mg disintegrating tablet Take 1 tablet by mouth as needed. May repeat in 2 hours if needed rosuvastatin (CRESTOR) 5 mg tablet Take 2 tablets by mouth daily at bedtime. spironolactone (ALDACTONE) 50 mg tablet Take 1 tablet by mouth two times a day. aspirin, enteric coated (ECOTRIN LOW STRENGTH) 81 mg EC tablet Take 1 tablet by mouth two times a day for 21 days. TO BEGIN 24 HOURS POST OP Patient should start on April 27, 2025. (Patient not taking: Reported on 06/12/2025) docusate sodium (COLACE) 100 mg capsule Take 1 capsule by mouth two times a day. ondansetron (ZOFRAN) 4 mg tablet Take 1 tablet by mouth every 8 hours as needed for nausea/vomiting. gabapentin (NEURONTIN) 300 mg capsule Take 1 capsule by mouth three times a day for 180 days. (Patient not taking: Reported on 08/21/2025) estradiol (ESTRACE) 1 mg tablet (Patient taking differently: USING A PATCH) No current facility-administered medications for this visit. FAMILY HISTORY Problem Relation Age of Onset Cervical Cancer Mother other (breast cyst [Other]) Mother Hyperlipidemia Father Hypertension Father other (sepsis) Father (after ruptured appe and another surgical complication where bowel was perforated during alexander). No Known Problems Sister No Known Problems Sister ADD/ADHD Brother Depression Brother ADD/ADHD Brother Stroke Maternal Grandmother No Known Problems Maternal Grandfather Hypertension Paternal Grandmother Hyperlipidemia Paternal Grandmother Skin Cancer Paternal Grandmother other (ewings sarcoma) Paternal Grandmother Hypertension Paternal Grandfather Heart Attack Paternal Grandfather Diabetes Paternal Grandfather Hyperlipidemia Paternal Grandfather COPD Paternal Grandfather ADD/ADHD Son SOCIAL HISTORY[1] REVIEW OF SYSTEMS Constitutional: (+) somnolence, (-) weight loss, (-) weight gain, (-) fever, (-) chills Head: (+) headaches, (+) facial pain Eyes: (-) visual changes Ears/Nose/Mouth/T (more content not included)... [facility] 08-18-2025 Note HNO ID: [id number] Author: MACEY KAISER, PT Service: ? Author Type: Physical Therapist Type: Progress Notes Filed: 08/18/2025 13:03 Note Text: Episode Visit Count: 14 Therapist That Will Accept/Oversee The Plan Of Care: Macey Kaiser Start of Care Date: 05/01/25 Onset Date: 04/26/25 Plan of Care Certification Date: 07/26/25 Next Certification Due Date: 09/06/25 REHABILITATION AND SPORTS THERAPY PHYSICAL THERAPY TREATMENT NOTE ASSESSMENT: Macey Campbell tolerated the session with expected muscle soreness. She demonstrated stiffness with IR with the hip flexed 90 degrees. Cues needed to avoid lumbopelvic compensatory movement patterns The patient will continue to benefit from ongoing skilled physical therapy to progress toward set goals. PLAN FOR NEXT VISIT: Progress IR and ER, especially FADIR SUBJECTIVE: advised to force LIZETTE and FADIR mobility due to stiffness. Patient Goals: restore strength and mobility of the L hip Functional Limitations: squatting, kneeling, working, lifting Pain: Pain Pain Level: 0 Pain Location: Hip - Left Description: Aching Post Treatment Pain Post Treatment Pain Level: 0 Post Treatment Pain Location: Hip - Left OBJECTIVE MEASURES WITH LEVEL OF FUNCTION: LE AROM L Hip Internal Rotation: 35 Degrees (prone 0 ext: 45) L Hip External Rotation: 53 Degrees (at 0 flexion: 45) TREATMENT: Therapeutic Exercise: 1: scifit seat 12, level 3, 1:1 throughout, subjective collected 5 min 2: prone B hip IR 5x30 sec 3: supine faver stretch 5x30 sec LLE with overpressure -- cues for active TA to avoid lumbar compensatory movement 4: prone LIZETTE stretch 3x30 sec 5: prone LLE ER stretch 5x30 sec 6: half kneel on foam, closed chain IR stretch 3x30 sec L 7: seated hip adductor stretch 1x30s each side Skilled Intervention: Patient was educated in proper exercise technique and purpose for exercises. Skilled judgment was used in selection of appropriate interventions. Provided written instruction for home exercise program to facilitate proper performance and compliance. Correct performance of therapeutic exercises was facilitated with verbal, visual, and tactile cuing. Educated patient on rationale for performing exercises in regards to decreasing fatigue , increase ease of ADL, and ROM and function . Patient education as noted. Billing Therapeutic Exercise Treatment Minutes: 39 Skilled Treatment Time Minutes (timed and untimed codes): 39 Total Session Time (minutes): 39 Session Start Time : 1223 Session Stop Time : 1302 Macey Kaiser, PT [facility] 08-14-2025 Note HNO ID: [id number] Author: DAR VERMA MD Service: ? Author Type: Physician Type: Progress Notes Filed: 08/14/2025 08:39 Note Text: RETURN ENCOUNTER Chief Complaint: s/p left hip arthroscopic labrum repair, femoroplasty, acetabuloplasty, capsular closure (DOS: 04/26/2025) HPI: Pain: better AROM: improved Function: improved Date of Injury: 04/26/25 Activity: currently ongoing FAMILY HISTORY Problem Relation Age of Onset Cervical Cancer Mother other (breast cyst [Other]) Mother Hyperlipidemia Father Hypertension Father other (sepsis) Father (after ruptured appe and another surgical complication where bowel was perforated during alexander). No Known Problems Sister No Known Problems Sister ADD/ADHD Brother Depression Brother ADD/ADHD Brother Stroke Maternal Grandmother No Known Problems Maternal Grandfather Hypertension Paternal Grandmother Hyperlipidemia Paternal Grandmother Skin Cancer Paternal Grandmother other (ewings sarcoma) Paternal Grandmother Hypertension Paternal Grandfather Heart Attack Paternal Grandfather Diabetes Paternal Grandfather Hyperlipidemia Paternal Grandfather COPD Paternal Grandfather ADD/ADHD Son Current Outpatient Medications Medication Sig metFORMIN ER (GLUCOPHAGE XR) 500 mg 24 hr tablet Take 1 tablet by mouth daily with breakfast. spironolactone (ALDACTONE) 50 mg tablet Take 1 tablet by mouth two times a day. rizatriptan (MAXALT ARMORING MACHINE OPERATOR) 10 mg disintegrating tablet Take 1 tablet by mouth as needed. May repeat in 2 hours if needed aspirin, enteric coated (ECOTRIN LOW STRENGTH) 81 mg EC tablet Take 1 tablet by mouth two times a day for 21 days. TO BEGIN 24 HOURS POST OP Patient should start on April 27, 2025. (Patient not taking: Reported on 06/12/2025) docusate sodium (COLACE) 100 mg capsule Take 1 capsule by mouth two times a day. ondansetron (ZOFRAN) 4 mg tablet Take 1 tablet by mouth every 8 hours as needed for nausea/vomiting. omeprazole (PRILOSEC) 40 mg capsule Take 1 capsule by mouth once daily. gabapentin (NEURONTIN) 300 mg capsule Take 1 capsule by mouth three times a day for 180 days. rosuvastatin (CRESTOR) 5 mg tablet Take 2 tablets by mouth daily at bedtime. amitriptyline (ELAVIL) 10 mg tablet Take 1 tablet by mouth daily at bedtime. estradiol (ESTRACE) 1 mg tablet No current facility-administered medications for this visit. ALLERGIES Allergen Reactions Cleocin [Clindamyci* Rash Sulfa (Sulfonamide * Rash Allergies, medications, past surgical history, family history and past medical history were reviewed per this encounter. Physical Examination: Region: Hip General Appearance: Appears healthy, well-nourished, no deformities. Left Exam: AROM: normal PROM: normal Point Tenderness location: none Swelling/Effusion: none Stability: normal Muscle Strength: normal Stiff hip rotation and FADIR and FLORES ER. Assessment and Plan: Status post left hip arthroscopy with labral repair and capsular closure. Doing well. She is demonstrating capsular stiffness, especially in the FA the ER position. All of her discomfort in this position is related to the capsule and capsular repair. Okay to be forceful and push through this as it is not, repeat not related to the labrum. She can follow-up with me in 2 to 3 months. All of her focus should be on range of motion and stretching as well as functional retraining. Dar Verma MD Sports Medicine/Orthopaedic Surgery [facility] 08-09-2025 Note HNO ID: [id number] Author: MACEY KAISER, DEYANIRA Service: ? Author Type: Physical Therapist Type: Progress Notes Filed: 08/09/2025 10:19 Note Text: Episode Visit Count: 13 Therapist That Will Accept/Oversee The Plan Of Care: Macey Kaiser Start of Care Date: 05/01/25 Onset Date: 04/26/25 Plan of Care Certification Date: 07/26/25 Next Certification Due Date: 09/06/25 REHABILITATION AND SPORTS THERAPY PHYSICAL THERAPY TREATMENT NOTE ASSESSMENT: Macey Velasco Campbell tolerated the session with no issues. She demonstrated improvements in L adductor tightness reported following adductor stretches. The patient will continue to benefit from ongoing skilled physical therapy to progress toward set goals. PLAN FOR NEXT VISIT: Pt. to f/u with ortho on thursday. assess hip squatting and stepping up 12 in response to hip adductor stretching SUBJECTIVE: Continues to have pain with squatting. HEP does not cause any issues. Patient Goals: restore strength and mobility of the L hip Functional Limitations: squatting, kneeling, working, lifting Pain: Pain Pain Level: 0 Pain Location: Hip - Left Description: Aching Post Treatment Pain Post Treatment Pain Level: No Change Post Treatment Pain Location: Hip - Left Post Treatment Symptoms: improved adductor mobility observed and reported OBJECTIVE MEASURES WITH LEVEL OF FUNCTION: TREATMENT: Therapeutic Exercise: 1: upright bike, seat 8, level 2, 1:1 throughout, subjective collected, 5 min 2: standing TA, back against wall 4x15 3: step up 12 1x10 LLE lead - dc due to pain 4: supine R and L adductor stretch with strap, knee ext 5x30 sec 5: supine R and L hip adductor stretch, modified knee flexed, 5x30 sec 6: seated supported lunge adductor stretch R and L 5x30 sec each side 7: 85 cm physioball squats, empahsis on core activation and hip abd 10x - continues to feel L groin pain even in shallow quarter squat Skilled Intervention: Patient was educated in proper exercise technique and purpose for exercises. Skilled judgment was used in selection of appropriate interventions. Provided written instruction for home exercise program to facilitate proper performance and compliance. Correct performance of therapeutic exercises was facilitated with verbal, visual, and tactile cuing. Educated patient on rationale for performing exercises in regards to decreasing fatigue , increase ease of ADL, and ROM and function . Patient education as noted. Billing Therapeutic Exercise Treatment Minutes: 38 Skilled Treatment Time Minutes (timed and untimed codes): 38 Total Session Time (minutes): 38 Session Start Time : 0940 Session Stop Time : 1018 Macey Kaiser PT [facility] 08-02-2025 Note HNO ID: [id number] Author: MACEY KAISER PT Service: ? Author Type: Physical Therapist Type: Progress Notes Filed: 08/02/2025 14:53 Note Text: Episode Visit Count: 12 Therapist That Will Accept/Oversee The Plan Of Care: Macey Kaiser Start of Care Date: 05/01/25 Onset Date: 04/26/25 Plan of Care Certification Date: 07/26/25 Next Certification Due Date: 09/06/25 Patient Identified by Name and Date of : Yes REHABILITATION AND SPORTS THERAPY PHYSICAL THERAPY TREATMENT NOTE ASSESSMENT: Macey Campbell tolerated the session with fatigue and expected muscle soreness. She demonstrated difficulty with TRX squats. The patient will continue to benefit from ongoing skilled physical therapy to progress toward set goals. PLAN FOR NEXT VISIT: step down from elevated surface SUBJECTIVE: Pt states that she is still having difficulty with squatting. Pt states that she was painful for 3 days after with the day after being the worst. Pain: Pain Pain Level: 0 Pain Location: Hip - Left Post Treatment Pain Post Treatment Pain Location: Hip - Left Post Treatment Symptoms: Fatigue OBJECTIVE MEASURES WITH LEVEL OF FUNCTION: TREATMENT: Therapeutic Exercise: 1: TRX 1x10, then 1x5 B half kneel to stand 2: Leg press, double leg 20# , 2x10 3: Mini lunges on EVA 2x10 B 4: Monster walks with OTB above knees , x 20 ft each direction 5: TRX squats x10 Skilled Intervention: Patient was educated in proper exercise technique and purpose for exercises. Skilled judgment was used in selection of appropriate interventions. Correct performance of therapeutic exercises was facilitated with verbal and visual cuing. Neuromuscular Re-Education: 1: L SLS on foam hip stabilization alphabet A-Z x 2 2: L SLS 5# KB around the world x 10 each direction 3: L SLS 5# KB passes x 10 Skilled Intervention: Skilled judgment used to assess appropriate program for balance and coordination activity. Ensured patient safety with use of // bars. Billing Therapeutic Exercise Treatment Minutes: 25 Neuromuscular Re-Education Treatment Minutes: 15 Skilled Treatment Time Minutes (timed and untimed codes): 40 Total Session Time (minutes): 40 Session Start Time : 1400 Session Stop Time : 1440 WEI Bush PT [facility] 07-26-2025 Note HNO ID: [id number] Author: MACEY KAISER, DEYANIRA Service: ? Author Type: Physical Therapist Type: Progress Notes Filed: 07/26/2025 09:32 Note Text: Episode Visit Count: 11 Therapist That Will Accept/Oversee The Plan Of Care: Macey Kaiser Start of Care Date: 05/01/25 Onset Date: 04/26/25 Plan of Care Certification Date: 07/26/25 Next Certification Due Date: 09/06/25 REHABILITATION AND SPORTS THERAPY PHYSICAL THERAPY PROGRESS REPORT PLAN OF CARE UPDATE: Assessment: Macey Campbell demonstrates improvements in lifting, kneeling, squatting, and working. The patient has progressed toward goals. Patient continues to present with impairments in ADL's, independence in exercise, joint mobility, overall function, patient reported outcome measures, strength, and symptom management that interfere with squatting, kneeling, working, lifting . Current prognosis is Good due to: current objective clinical presentation . The patient will benefit from continued skilled therapy services to meet the updated goals for this plan of care as noted below. Goals for Episode of Care: established 05/01/25 Goals updated on 05/31/2025. [place] in home exercise program. -- MET Patient will decrease pain to 1-2/10 with functional activities to allow patient to improve ambulation, transfers, and standing tolerance for ADLs. -- MET Perform walking community distances with decreased report of symptoms/pain in 12 weeks. -- Met Perform sleeping 6-8 hours without increased L hip pain. -- MET Normal gait. -- Reciprocal stair negotiation. -- MET Patient Goals: restore strength and mobility of the L hip -- PROGRESSING NEW GOALS 1/2 knee to standing 5x each side without increased pain -- PROGRESSING Full squat 10x without increased pain or need for cues to correct technique -- PROGRESSING Time Frame for Goals and Treatment : 09/06/25 Patient Goals: restore strength and mobility of the L hip Planned Interventions, Frequency, and Duration: 1x/week, 6 weeks Total Number of Visits Planned: 6 Patient to be seen for Gait Training (95713), Self-mcfp management (66504), Therapeutic activities (65316), Manual therapy (56133), Neuromuscular re-education (23079), Therapeutic exercise (45641) PLAN FOR NEXT VISIT: half kneeling to standing, stairs/ladders, squatting <90, stepping down from elevated surfaces SUBJECTIVE: Has pain with squatting and getting up from a squat. Stairs are no longer painful, completes with reciprocal pattern ascending and descending. Community distance ambulation doesn't bother the hip.. Patient Goals: restore strength and mobility of the L hip Functional Limitations: squatting, kneeling, working, lifting Pain: Pain Pain Level: 0 Pain Location: Hip - Left Description: Aching Post Treatment Pain Post Treatment Pain Location: Hip - Left PROMIS Scales 07/26/2025 07/12/2025 06/28/2025 Higher is Better Phys Func - T Score 42 (mild dysfunction) Phys Func - Percentile 21 Self-Eff Symptom - T Score 45 (Average) 44 (Average) Self-Eff Symptom - Percentile 31 27 T-Score and Percentile Interpretation T-scores: mean of general population = 50. 5 points is clinically meaningfully difference Percentiles provide an indication of how the patient's score ranks in relation to the general population. Higher percentile rankings indicate better function/quality of life. 50th percentile is the average of the general population and indicates half of respondents had a worse score. OBJECTIVE MEASURES WITH LEVEL OF FUNCTION: TREATMENT: Therapeutic Exercise: 1: walking on treadmill 2 mph x 5 min, grade 1%, 1:1 throughout, subjective collected 2: TRX hip hinge 2x10 3: TRX mini squat 2x10 (cues for sequence hip and kinee ext/flex) 4: TRX squat to 19 chair which is // 2x10 5: physioball 65 cm wall squats 4x10 6: full depth squats in front of mirrof 3x5 7: hip flexor band stretch half kneel position R and L 3x30 sec each 8: TRX 2x5 half knee to stand Skilled Intervention: Patient was educated in proper exercise technique and purpose for exercises. Provided written instruction for home exercise program to facilitate proper performance and compliance. Correct performance of therapeutic exercises was facilitated with verbal, visual, and tactile cuing. Educated patient on rationale for performing exercises in regards to decreasing fatigue , increase ease of ADL, and ROM and function . Billing Therapeutic Exercise Treatment Minutes: 40 Skilled Treatment Time Minutes (timed and untimed codes): 40 Total Session Time (minutes): 40 Session Start Time : 854 Session Stop Time : 934 Macey Kaiser PT [facility] 07-12-2025 History of Presen t illness Narrative Program_ID:[id number] Access Code: [email or web address] URL: [email or web address] Date: 07-12-2025 Prepared By: Macey Kaiser Program Notes Exercises - Quadruped Alternating Arm Lift - 2 x daily - 7 x weekly - 4 sets - 10 reps - Quadruped Alternating Leg Extensions - 2 x daily - 7 x weekly - 4 sets - 30 reps - Bird Dog - 2 x daily - 7 x weekly - 4 sets - 30 reps - Quadruped Fire Hydrant - 2 x daily - 7 x weekly - 4 sets - 30 reps Episode Visit Count: 10 Therapist That Will Accept/Oversee The Plan Of Care: Macey Kaiser Start of Care Date: 05/01/25 Onset Date: 04/26/25 Plan of Care Certification Date: 02/21/25 Next Certification Due Date: 04/04/25 REHABILITATION AND SPORTS THERAPY PHYSICAL THERAPY TREATMENT NOTE ASSESSMENT: Macey Sharon Campbell tolerated the session with fatigue. She demonstrated difficulty with avoiding R lumbar rotation with quadruped hip and core stabilization strengthening. The patient will continue to benefit from ongoing skilled physical therapy to progress toward set goals. PLAN FOR NEXT VISIT: half kneeling to standing, stairs/ladders, squatting <90, stepping down from elevated surfaces SUBJECTIVE: post op week 11. HEP going well. Just some achiness in the anterolateral hip. Patient Goals: restore strength and mobility of the L hip Functional Limitations: walking in the community, stair negotiation Pain: Pain Pain Level: 0 Pain Location: Hip - Left Description: Aching Post Treatment Pain Post Treatment Pain Level: 0 Post Treatment Pain Location: Hip - Left OBJECTIVE MEASURES WITH LEVEL OF FUNCTION: TREATMENT: Therapeutic Exercise: 1: upright bike, seat 8, level 2, 1:1 throughout, subjective collected, 5 min 2: prone hip extension 4x10 Skilled Intervention: Patient was educated in proper exercise technique and purpose for exercises. Skilled judgment was used in selection of appropriate interventions. Provided written instruction for home exercise program to facilitate proper performance and compliance. Correct performance of therapeutic exercises was facilitated with verbal, visual, and tactile cuing. Educated patient on rationale for performing exercises in regards to decreasing fatigue , increase ease of ADL, and ROM and function . Neuromuscular Re-Education: 1: *Access Code: [email or web address] URL: [email or web address] Date: 07/12/2025 Prepared by: Macey Orozco'Kevin Exercises - Quadruped Alternating Arm Lift - 2 x daily - 7 x weekly - 4 sets - 10 reps - Quadruped Alternating Leg Extensions - 2 x daily - 7 x weekly - 4 sets - 30 reps - Bird Dog - 2 x daily - 7 x weekly - 4 sets - 30 reps - Quadruped Fire Hydrant - 2 x daily - 7 x weekly - 4 sets - 30 reps Skilled Intervention: Skilled judgment used to assess appropriate program for balance and coordination activity. Education in proprioceptive/kinesthetic awareness during dynamic activities. Reviewed and educated patient on additions/changes for home program as noted above with an (*). Correct performance of home program was facilitated with verbal, visual, and tactile cueing. Self-Skilled Nursing Management: 1: edu how to use foam roller 5 min Skilled Intervention: Skilled judgment in the selection of proper modification for activity of daily living/home management based on clinical presentation, deficits, and needs. Reviewed patient specific diagnosis in relation to activities of daily living/home management. Activity progression based on professional judgement. Reviewed and educated patient on additions/changes for home program as noted above with an (*). Billing Therapeutic Exercise Treatment Minutes: 7 Neuromuscular Re-Education Treatment Minutes: 28 Self-Care/Home Management Treatment Minutes: 5 Skilled Treatment Time Minutes (timed and untimed codes): 40 Total Session Time (minutes): 40 Session Start Time : 0853 Session Stop Time : 932 Macey Kaiser PT documented in this encounter [facility] 07-12-2025 Note HNO ID: [id number] Author: MACEY KAISER PT Service: ? Author Type: Physical Therapist Type: Progress Notes Filed: 07/12/2025 09:50 Note Text: Episode Visit Count: 10 Therapist That Will Accept/Oversee The Plan Of Care: Macey Kaiser Start of Care Date: 05/01/25 Onset Date: 04/26/25 Plan of Care Certification Date: 02/21/25 Next Certification Due Date: 04/04/25 REHABILITATION AND SPORTS THERAPY PHYSICAL THERAPY TREATMENT NOTE ASSESSMENT: Macey Campbell tolerated the session with fatigue. She demonstrated difficulty with avoiding R lumbar rotation with quadruped hip and core stabilization strengthening. The patient will continue to benefit from ongoing skilled physical therapy to progress toward set goals. PLAN FOR NEXT VISIT: half kneeling to standing, stairs/ladders, squatting <90, stepping down from elevated surfaces SUBJECTIVE: post op week 11. HEP going well. Just some achiness in the anterolateral hip. Patient Goals: restore strength and mobility of the L hip Functional Limitations: walking in the community, stair negotiation Pain: Pain Pain Level: 0 Pain Location: Hip - Left Description: Aching Post Treatment Pain Post Treatment Pain Level: 0 Post Treatment Pain Location: Hip - Left OBJECTIVE MEASURES WITH LEVEL OF FUNCTION: TREATMENT: Therapeutic Exercise: 1: upright bike, seat 8, level 2, 1:1 throughout, subjective collected, 5 min 2: prone hip extension 4x10 Skilled Intervention: Patient was educated in proper exercise technique and purpose for exercises. Skilled judgment was used in selection of appropriate interventions. Provided written instruction for home exercise program to facilitate proper performance and compliance. Correct performance of therapeutic exercises was facilitated with verbal, visual, and tactile cuing. Educated patient on rationale for performing exercises in regards to decreasing fatigue , increase ease of ADL, and ROM and function . Neuromuscular Re-Education: 1: *Access Code: [email or web address] URL: [email or web address] Date: 07/12/2025 Prepared by: Macey Kaiser Exercises - Quadruped Alternating Arm Lift - 2 x daily - 7 x weekly - 4 sets - 10 reps - Quadruped Alternating Leg Extensions - 2 x daily - 7 x weekly - 4 sets - 30 reps - Bird Dog - 2 x daily - 7 x weekly - 4 sets - 30 reps - Quadruped Fire Hydrant - 2 x daily - 7 x weekly - 4 sets - 30 reps Skilled Intervention: Skilled judgment used to assess appropriate program for balance and coordination activity. Education in proprioceptive/kinesthetic awareness during dynamic activities. Reviewed and educated patient on additions/changes for home program as noted above with an (*). Correct performance of home program was facilitated with verbal, visual, and tactile cueing. Self-Skilled Nursing Management: 1: edu how to use foam roller 5 min Skilled Intervention: Skilled judgment in the selection of proper modification for activity of daily living/home management based on clinical presentation, deficits, and needs. Reviewed patient specific diagnosis in relation to activities of daily living/home management. Activity progression based on professional judgement. Reviewed and educated patient on additions/changes for home program as noted above with an (*). Billing Therapeutic Exercise Treatment Minutes: 7 Neuromuscular Re-Education Treatment Minutes: 28 Self-Care/Home Management Treatment Minutes: 5 Skilled Treatment Time Minutes (timed and untimed codes): 40 Total Session Time (minutes): 40 Session Start Time : 852 Session Stop Time : 932 Macey Kaiser, PT [facility] 07-05-2025 Telephone encounter Note Prescription Refill Information The patient has been identified by name and date of : Yes Caregiver verified no other encounters exist for this prescription request: Yes Caregiver confirmed with patient/requestor that no other refills are due, in the near future, with this provider at this time: Yes The last office visit in the department: 02/09/25 Does the patient have a future office visit with this provider/department: Yes Requested Prescriptions Pending Prescriptions Disp Refills 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 May repeat in 2 hours if needed Kaylene Cuenca LPN July 05, 2025 1:43 PM [facility] 07-05-2025 Miscellaneous Notes Prescription Refill Information The patient has been identified by name and date of : Yes Caregiver verified no other encounters exist for this prescription request: Yes Caregiver confirmed with patient/requestor that no other refills are due, in the near future, with this provider at this time: Yes The last office visit in the department: 02/09/25 Does the patient have a future office visit with this provider/department: Yes Requested Prescriptions Pending Prescriptions Disp Refills 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 May repeat in 2 hours if needed Kaylene Cuenca LPN July 05, 2025 1:43 PM documented in this encounter [facility] 06-28-2025 History of Presen t illness Narrative Program_ID:[id number] Access Code: [email or web address] URL: [email or web address] Date: 06-28-2025 Prepared By: Macey Kaiser Program Notes Exercises - Single Leg Sit to Stand with Arms Crossed - 1 x daily - 7 x weekly - 3 sets - 12 reps - Single Leg Sit to Stand with Arms Crossed - 1 x daily - 7 x weekly - 3 sets - 12 reps - Forward T with Counter Support - 1 x daily - 7 x weekly - 3 sets - 12 reps - Forward T with Counter Support - 1 x daily - 7 x weekly - 3 sets - 12 reps - Side Plank on Knees - 1 x daily - 7 x weekly - 3 sets - reps - Side Plank on Knees - 1 x daily - 7 x weekly - 3 sets - reps Episode Visit Count: 9 Therapist That Will Accept/Oversee The Plan Of Care: Macey Kaiser Start of Care Date: 05/01/25 Onset Date: 04/26/25 Plan of Care Certification Date: 02/21/25 Next Certification Due Date: 04/04/25 REHABILITATION AND SPORTS THERAPY PHYSICAL THERAPY TREATMENT NOTE ASSESSMENT: Macey Campbell tolerated the session with decreased symptoms. She demonstrated improvements in postural awareness with repeated sets of rocker hover board correcting forward trunk lean without LOB. The patient will continue to benefit from ongoing skilled physical therapy to progress toward set goals. PLAN FOR NEXT VISIT: post-op wk 10, steam boats, lateral BOSU step ups, hip hinges, anti-rotational stability firm surface and foam (paloff, stir the pot), wall slides, SUBJECTIVE: Post-op wk 9. Denies pain. HEP going well. Patient Goals: restore strength and mobility of the L hip Functional Limitations: walking in the community, stair negotiation Pain: Pain Pain Level: 0 Pain Location: Hip - Left Description: Aching Post Treatment Pain Post Treatment Pain Level: No Change Post Treatment Pain Location: Hip - Left Post Treatment Symptoms: just fatigued OBJECTIVE MEASURES WITH LEVEL OF FUNCTION: TREATMENT: Therapeutic Exercise: 1: stair climber, level 1, 1:1 throughout, subjective collected 5 minutes 2: *single leg stand to sit, 3 sec tempo 3x12 each side 22 surface, x2 progressing to x1 UE support 3: * Forward T with Counter Support (Mirrored) - 1 x daily - 7 x weekly - 3 sets - 12 reps - Side Plank on Knees - 1 x daily - 7 x weekly - 3 sets - 30 hold - Side Plank on Knees (Mirrored) - 1 x daily - 7 x weekly - 3 sets - 30 hold (cues to avoid rotation at the hips with forward T) Skilled Intervention: Patient was educated in proper exercise technique and purpose for exercises. Skilled judgment was used in selection of appropriate interventions. Provided written instruction for home exercise program to facilitate proper performance and compliance. Correct performance of therapeutic exercises was facilitated with verbal, visual, and tactile cuing. Educated patient on rationale for performing exercises in regards to decreasing fatigue , including balance, increase ease of ADL, and ROM and function . Patient education as noted. Neuromuscular Re-Education: 1: rockerboard fwd and back tilt and hover 60 sec 3x no UE support, EC 2: rockerboard side to side tilt and hover 60 sec 3x no UE support, EC Skilled Intervention: Skilled judgment used to assess appropriate program for balance and coordination activity. Education in proprioceptive/kinesthetic awareness during dynamic activities. Billing Therapeutic Exercise Treatment Minutes: 30 Neuromuscular Re-Education Treatment Minutes: 10 Skilled Treatment Time Minutes (timed and untimed codes): 40 Total Session Time (minutes): 40 Session Start Time : 846 Session Stop Time : 926 Macey Kaiser PT documented in this encounter [facility] 06-28-2025 Note HNO ID: [id number] Author: MACEY KAISER PT Service: ? Author Type: Physical Therapist Type: Progress Notes Filed: 06/28/2025 09:27 Note Text: Episode Visit Count: 9 Therapist That Will Accept/Oversee The Plan Of Care: Macey Kaiser Start of Care Date: 05/01/25 Onset Date: 04/26/25 Plan of Care Certification Date: 02/21/25 Next Certification Due Date: 04/04/25 REHABILITATION AND SPORTS THERAPY PHYSICAL THERAPY TREATMENT NOTE ASSESSMENT: Macey Campbell tolerated the session with decreased symptoms. She demonstrated improvements in postural awareness with repeated sets of rocker hover board correcting forward trunk lean without LOB. The patient will continue to benefit from ongoing skilled physical therapy to progress toward set goals. PLAN FOR NEXT VISIT: post-op wk 10, steam boats, lateral BOSU step ups, hip hinges, anti-rotational stability firm surface and foam (paloff, stir the pot), wall slides, SUBJECTIVE: Post-op wk 9. Denies pain. HEP going well. Patient Goals: restore strength and mobility of the L hip Functional Limitations: walking in the community, stair negotiation Pain: Pain Pain Level: 0 Pain Location: Hip - Left Description: Aching Post Treatment Pain Post Treatment Pain Level: No Change Post Treatment Pain Location: Hip - Left Post Treatment Symptoms: just fatigued OBJECTIVE MEASURES WITH LEVEL OF FUNCTION: TREATMENT: Therapeutic Exercise: 1: stair climber, level 1, 1:1 throughout, subjective collected 5 minutes 2: *single leg stand to sit, 3 sec tempo 3x12 each side 22 surface, x2 progressing to x1 UE support 3: * Forward T with Counter Support (Mirrored) - 1 x daily - 7 x weekly - 3 sets - 12 reps - Side Plank on Knees - 1 x daily - 7 x weekly - 3 sets - 30 hold - Side Plank on Knees (Mirrored) - 1 x daily - 7 x weekly - 3 sets - 30 hold (cues to avoid rotation at the hips with forward T) Skilled Intervention: Patient was educated in proper exercise technique and purpose for exercises. Skilled judgment was used in selection of appropriate interventions. Provided written instruction for home exercise program to facilitate proper performance and compliance. Correct performance of therapeutic exercises was facilitated with verbal, visual, and tactile cuing. Educated patient on rationale for performing exercises in regards to decreasing fatigue , including balance, increase ease of ADL, and ROM and function . Patient education as noted. Neuromuscular Re-Education: 1: rockerboard fwd and back tilt and hover 60 sec 3x no UE support, EC 2: rockerboard side to side tilt and hover 60 sec 3x no UE support, EC Skilled Intervention: Skilled judgment used to assess appropriate program for balance and coordination activity. Education in proprioceptive/kinesthetic awareness during dynamic activities. Billing Therapeutic Exercise Treatment Minutes: 30 Neuromuscular Re-Education Treatment Minutes: 10 Skilled Treatment Time Minutes (timed and untimed codes): 40 Total Session Time (minutes): 40 Session Start Time : 846 Session Stop Time : 926 Macey Kaiser PT [facility] 06-20-2025 Note HNO ID: [id number] Author: MACEY KAISER PT Service: ? Author Type: Physical Therapist Type: Progress Notes Filed: 06/20/2025 13:58 Note Text: Episode Visit Count: 8 Therapist That Will Accept/Oversee The Plan Of Care: Macey Kaiser Start of Care Date: 05/01/25 Onset Date: 04/26/25 Plan of Care Certification Date: 02/21/25 Next Certification Due Date: 06/03/25 REHABILITATION AND SPORTS THERAPY PHYSICAL THERAPY TREATMENT NOTE ASSESSMENT: Macey Campbell tolerated the session with increased symptoms. She demonstrated improvements in L hip groin pain as a result of quad stretching with strap, prone. The patient will continue to benefit from ongoing skilled physical therapy to progress toward set goals. PLAN FOR NEXT VISIT: stair climber warm up level 1, lateral step downs, multidirectional lunges, SUBJECTIVE: Pt. has some groin pain. Patient Goals: restore strength and mobility of the L hip Functional Limitations: walking in the community, stair negotiation Pain: Pain Pain Level: 5 Pain Location: Hip - Left Description: Aching Post Treatment Pain Post Treatment Pain Level: No Change Post Treatment Pain Location: Hip - Left OBJECTIVE MEASURES WITH LEVEL OF FUNCTION: TREATMENT: Therapeutic Exercise: 1: stair climber, 1:1 throughout, subjective collected, 5 min, level 3 2: L hip flexor stretch over edge of table, supine 3x30 sec LLE 3: supine hip ER 3x15 slow, controlled movement 4: quad stretch 3x30 sec each side 5: single leg sit <>stand from chair 2x12 each side, using BUE arm rests Skilled Intervention: Patient was educated in proper exercise technique and purpose for exercises. Skilled judgment was used in selection of appropriate interventions. Provided written instruction for home exercise program to facilitate proper performance and compliance. Correct performance of therapeutic exercises was facilitated with verbal, visual, and tactile cuing. Educated patient on rationale for performing exercises in regards to decreasing fatigue , increase ease of ADL, and ROM and function . Neuromuscular Re-Education: 1: quadruped hip extension 4x30 sec each side 2: quadruped hip frog kicks 2x30 sec each side 3: quadruped hip hydrants 2x30 sec each side Skilled Intervention: Skilled judgment used to assess appropriate program for balance and coordination activity. Education in proprioceptive/kinesthetic awareness during dynamic activities. Billing Therapeutic Exercise Treatment Minutes: 25 Neuromuscular Re-Education Treatment Minutes: 15 Skilled Treatment Time Minutes (timed and untimed codes): 40 Total Session Time (minutes): 40 Session Start Time : 1319 Session Stop Time : 1359 Macey Kaiser, PT [facility] 06-20-2025 History of Presen t illness Narrative Episode Visit Count: 8 Therapist That Will Accept/Oversee The Plan Of Care: Macey Kaiser Start of Care Date: 05/01/25 Onset Date: 04/26/25 Plan of Care Certification Date: 02/21/25 Next Certification Due Date: 04/04/25 REHABILITATION AND SPORTS THERAPY PHYSICAL THERAPY TREATMENT NOTE ASSESSMENT: Macey Campbell tolerated the session with increased symptoms. She demonstrated improvements in L hip groin pain as a result of quad stretching with strap, prone. The patient will continue to benefit from ongoing skilled physical therapy to progress toward set goals. PLAN FOR NEXT VISIT: stair climber warm up level 1, lateral step downs, multidirectional lunges, SUBJECTIVE: Pt. has some groin pain. Patient Goals: restore strength and mobility of the L hip Functional Limitations: walking in the community, stair negotiation Pain: Pain Pain Level: 5 Pain Location: Hip - Left Description: Aching Post Treatment Pain Post Treatment Pain Level: No Change Post Treatment Pain Location: Hip - Left OBJECTIVE MEASURES WITH LEVEL OF FUNCTION: TREATMENT: Therapeutic Exercise: 1: stair climber, 1:1 throughout, subjective collected, 5 min, level 3 2: L hip flexor stretch over edge of table, supine 3x30 sec LLE 3: supine hip ER 3x15 slow, controlled movement 4: quad stretch 3x30 sec each side 5: single leg sit <>stand from chair 2x12 each side, using BUE arm rests Skilled Intervention: Patient was educated in proper exercise technique and purpose for exercises. Skilled judgment was used in selection of appropriate interventions. Provided written instruction for home exercise program to facilitate proper performance and compliance. Correct performance of therapeutic exercises was facilitated with verbal, visual, and tactile cuing. Educated patient on rationale for performing exercises in regards to decreasing fatigue , increase ease of ADL, and ROM and function . Neuromuscular Re-Education: 1: quadruped hip extension 4x30 sec each side 2: quadruped hip frog kicks 2x30 sec each side 3: quadruped hip hydrants 2x30 sec each side Skilled Intervention: Skilled judgment used to assess appropriate program for balance and coordination activity. Education in proprioceptive/kinesthetic awareness during dynamic activities. Billing Therapeutic Exercise Treatment Minutes: 25 Neuromuscular Re-Education Treatment Minutes: 15 Skilled Treatment Time Minutes (timed and untimed codes): 40 Total Session Time (minutes): 40 Session Start Time : 1319 Session Stop Time : 1359 Macey Kaiser PT documented in this encounter [facility] 06-14-2025 History of Presen t illness Narrative Program_ID:[id number] Access Code: [email or web address] URL: [email or web address] Date: 06-14-2025 Prepared By: Macey Kaiser Program Notes Exercises - Side Stepping with Resistance at Ankles - 1 x daily - 7 x weekly - 6 sets - 20 reps - Plank on Knees - 2 x daily - 7 x weekly - 2 sets - 3 reps - Sidelying Hip Abduction - 2 x daily - 7 x weekly - 2 sets - 10 reps - Lateral Step Down - 1 x daily - 7 x weekly - 4 sets - 8 reps Episode Visit Count: 7 Therapist That Will Accept/Oversee The Plan Of Care: Macey Kaiser Start of Care Date: 05/01/25 Onset Date: 04/26/25 Plan of Care Certification Date: 02/21/25 Next Certification Due Date: 04/04/25 REHABILITATION AND SPORTS THERAPY PHYSICAL THERAPY TREATMENT NOTE ASSESSMENT: Macey Sharon Campbell tolerated the session with expected muscle soreness. She demonstrated difficulty with lateral stepping with c/o intermittent cramping in the lateral hips/thighs but was able to complete the sets. The patient will continue to benefit from ongoing skilled physical therapy to progress toward set goals. PLAN FOR NEXT VISIT: stair climber warm up, lateral step downs, multidirectional lunges, quadruped core with hip extension stabilization SUBJECTIVE: Post op wk 7. HEP is going well. Pt. had f/u with ortho who instructed pt. to avoid walking for exercise other than ADLs. Patient Goals: restore strength and mobility of the L hip Functional Limitations: walking in the community, stair negotiation Pain: Pain Pain Level: 0 Pain Location: Hip - Left Description: Aching Post Treatment Pain Post Treatment Pain Location: Hip - Left OBJECTIVE MEASURES WITH LEVEL OF FUNCTION: TREATMENT: Therapeutic Exercise: 1: upright bike, seat 8, level 2, 1:1 throughout, subjective collected, 5 min 2: side stepping with resistance 40' 3x each direction pink band 3: leg press 4x12 #50 4: hook lying 4 sets 12, bridges with 55 cm physioball 5: *pink band issued 6: lateral step down 8 box, 4x 8 each side Skilled Intervention: Patient was educated in proper exercise technique and purpose for exercises. Skilled judgment was used in selection of appropriate interventions. Provided written instruction for home exercise program to facilitate proper performance and compliance. Correct performance of therapeutic exercises was facilitated with verbal, visual, and tactile cuing. Educated patient on rationale for performing exercises in regards to decreasing fatigue , increase ease of ADL, and ROM and function . Patient education as noted. Neuromuscular Re-Education: 1: lateral BOSU ball mini lunges 2x15 each side, BUE at // bars Skilled Intervention: Skilled judgment used to assess appropriate program for balance and coordination activity. Education in proprioceptive/kinesthetic awareness during dynamic activities. Reviewed and educated patient on additions/changes for home program as noted above with an (*). Billing Therapeutic Exercise Treatment Minutes: 35 Neuromuscular Re-Education Treatment Minutes: 5 Skilled Treatment Time Minutes (timed and untimed codes): 40 Total Session Time (minutes): 40 Session Start Time : 854 Session Stop Time : 934 Macey Kaiser PT documented in this encounter [facility] 06-14-2025 Note HNO ID: [id number] Author: MACEY KAISER PT Service: ? Author Type: Physical Therapist Type: Progress Notes Filed: 06/14/2025 09:55 Note Text: Episode Visit Count: 7 Therapist That Will Accept/Oversee The Plan Of Care: Macey Kaiser Start of Care Date: 05/01/25 Onset Date: 04/26/25 Plan of Care Certification Date: 02/21/25 Next Certification Due Date: 04/04/25 REHABILITATION AND SPORTS THERAPY PHYSICAL THERAPY TREATMENT NOTE ASSESSMENT: Macey Campbell tolerated the session with expected muscle soreness. She demonstrated difficulty with lateral stepping with c/o intermittent cramping in the lateral hips/thighs but was able to complete the sets. The patient will continue to benefit from ongoing skilled physical therapy to progress toward set goals. PLAN FOR NEXT VISIT: stair climber warm up, lateral step downs, multidirectional lunges, quadruped core with hip extension stabilization SUBJECTIVE: Post op wk 7. HEP is going well. Pt. had f/u with ortho who instructed pt. to avoid walking for exercise other than ADLs. Patient Goals: restore strength and mobility of the L hip Functional Limitations: walking in the community, stair negotiation Pain: Pain Pain Level: 0 Pain Location: Hip - Left Description: Aching Post Treatment Pain Post Treatment Pain Location: Hip - Left OBJECTIVE MEASURES WITH LEVEL OF FUNCTION: TREATMENT: Therapeutic Exercise: 1: upright bike, seat 8, level 2, 1:1 throughout, subjective collected, 5 min 2: side stepping with resistance 40' 3x each direction pink band 3: leg press 4x12 #50 4: hook lying 4 sets 12, bridges with 55 cm physioball 5: *pink band issued 6: lateral step down 8 box, 4x 8 each side Skilled Intervention: Patient was educated in proper exercise technique and purpose for exercises. Skilled judgment was used in selection of appropriate interventions. Provided written instruction for home exercise program to facilitate proper performance and compliance. Correct performance of therapeutic exercises was facilitated with verbal, visual, and tactile cuing. Educated patient on rationale for performing exercises in regards to decreasing fatigue , increase ease of ADL, and ROM and function . Patient education as noted. Neuromuscular Re-Education: 1: lateral BOSU ball mini lunges 2x15 each side, BUE at // bars Skilled Intervention: Skilled judgment used to assess appropriate program for balance and coordination activity. Education in proprioceptive/kinesthetic awareness during dynamic activities. Reviewed and educated patient on additions/changes for home program as noted above with an (*). Billing Therapeutic Exercise Treatment Minutes: 35 Neuromuscular Re-Education Treatment Minutes: 5 Skilled Treatment Time Minutes (timed and untimed codes): 40 Total Session Time (minutes): 40 Session Start Time : 854 Session Stop Time : 934 Macey Kaiser, PT [facility] 06-12-2025 Instructions Dar Verma MD - 06/12/2025 1:40 PM EDT Images from the original note were not included. Avoid walking for exercise Pool exercise as tolerated - walking, gentle freestyle, deep water jog with belt. Avoid - breast stroke, scissor kick, treading water Begin LIZETTE/ Figure 4 stretch 10 - 30 count hold 3 reps 2-3 sets per day - can start with left heel resting next to or below left knee and progress to left heel resting above leftknee per tolerance Richard stretch off edge or end of bed - 30 count hold 3 reps 2-3 sets per day Right knee to chest Advance bike for cardio with PT guidance. Stay seated and do not clip in or have feet secured to pedals Advance to elliptical per PT guidance - avoid inclines/ declines Upper body lifting - as long feet are not in contact with ground. documented in this encounter [facility] 06-12-2025 Note HNO ID: [id number] Author: DAR VERMA MD Service: ? Author Type: Physician Type: Progress Notes Filed: 06/12/2025 14:20 Note Text: GLOBAL/POSTOP ENCOUNTER Chief Complaint: s/p left hip arthroscopic labrum repair, femoroplasty, acetabuloplasty, capsular closure (DOS: 04/26/2025) Macey Campbell is a 35 year old year old female who returned today for 6 weeks and 5 days post op: 04/26/25. HPI: Pain: appropriate Function: FWB Therapy: currently ongoing ROS reviewed Allergies, medications, past surgical history and past medical history were reviewed per this encounter. Physical Examination: Region: Knee :eft Exam: Incision: healing without evidence of infection AROM: 120 degrees of hip flexion, 25 degrees of internal rotation, 45 degrees of external rotation PROM: normal Swelling/Effusion: none Stability: normal Muscle Strength: normal Negative FADIR, FLORES ER is to level 2 compared to level 1 Assessment and Plan: Status post left hip arthroscopy with labral repair April 26, 2025. Doing extremely well. May progress to hip opening stretches. Okay to be forceful with external rotation. A copy of the stretches have been provided. No walking for exercise until closer to 10 to 12 weeks. No squatting below 90 degrees for the same time. Follow-up with me in 2 months. We have provided her with a letter for work so that she may work 4 days per week. Dar Verma MD Sports Medicine/Orthopaedic Surgery [facility] 06-12-2025 History of Presen t illness Narrative GLOBAL/POSTOP ENCOUNTER Chief Complaint: s/p left hip arthroscopic labrum repair, femoroplasty, acetabuloplasty, capsular closure (DOS: 04/26/2025) Maceyridge Campbell is a 35 year old year old female who returned today for 6 weeks and 5 days post op: 04/26/25. HPI: Pain: appropriate Function: FWB Therapy: currently ongoing ROS reviewed Allergies, medications, past surgical history and past medical history were reviewed per this encounter. Physical Examination: Region: Knee :eft Exam: Incision: healing without evidence of infection AROM: 120 degrees of hip flexion, 25 degrees of internal rotation, 45 degrees of external rotation PROM: normal Swelling/Effusion: none Stability: normal Muscle Strength: normal Negative FADIR, FLORES ER is to level 2 compared to level 1 Assessment and Plan: Status post left hip arthroscopy with labral repair April 26, 2025. Doing extremely well. May progress to hip opening stretches. Okay to be forceful with external rotation. A copy of the stretches have been provided. No walking for exercise until closer to 10 to 12 weeks. No squatting below 90 degrees for the same time. Follow-up with me in 2 months. We have provided her with a letter for work so that she may work 4 days per week. Dar Verma MD Sports Medicine/Orthopaedic Surgery documented in this encounter [facility] 06-07-2025 Note HNO ID: [id number] Author: MACEY KAISER PT Service: ? Author Type: Physical Therapist Type: Progress Notes Filed: 06/07/2025 10:05 Note Text: Episode Visit Count: 6 Therapist That Will Accept/Oversee The Plan Of Care: Macey Kaiser Start of Care Date: 05/01/25 Onset Date: 04/26/25 Plan of Care Certification Date: 02/21/25 Next Certification Due Date: 04/04/25 REHABILITATION AND SPORTS THERAPY PHYSICAL THERAPY TREATMENT NOTE ASSESSMENT: Macey Campbell tolerated the session with fatigue. She demonstrated difficulty with BOSU ball step ups with using only 1 hand supported. Unable to complete SLR due to L hip pain with returning to the table, this was modified to hook lying marches with TA activation and the knees bent. The patient will continue to benefit from ongoing skilled physical therapy to progress toward set goals. Current Frequency: 1x/week Duration: 8 weeks Planned Treatment Interventions: Gait Training (56732), Self-mcfp management (32159), Therapeutic activities (14312), Manual therapy (12130), Neuromuscular re-education (04269), Therapeutic exercise (81918) PLAN FOR NEXT VISIT: SUBJECTIVE: Post op wk 6. HEP going well. Denies pain. Patient Goals: restore strength and mobility of the L hip Functional Limitations: walking in the community, stair negotiation Prior Level of Function: Independent without limitations Pain: Pain Pain Level: 0 Pain Location: Hip - Left Description: Aching Post Treatment Pain Post Treatment Pain Level: No Change Post Treatment Pain Location: Hip - Left OBJECTIVE MEASURES WITH LEVEL OF FUNCTION: TREATMENT: Therapeutic Exercise: 1: upright bike, seat 8, level 2, 1:1 throughout, subjective collected, 5 min 2: hook lying alt marches with TA activation 3x60 sec Skilled Intervention: Skilled judgment was used in selection of appropriate interventions. Provided written instruction for home exercise program to facilitate proper performance and compliance. Correct performance of therapeutic exercises was facilitated with verbal, visual, and tactile cuing. Educated patient on rationale for performing exercises in regards to decreasing fatigue , increase ease of ADL, and ROM and function . Patient education as noted. Neuromuscular Re-Education: 1: BOSU ball step ups fwd alt 3x15 each side, x1 UE support 2: BOSU ball step ups fwd alt 3x15 each side, x2 UE support Skilled Intervention: Education in proprioceptive/kinesthetic awareness during dynamic activities. Reviewed and educated patient on additions/changes for home program as noted above with an (*). Correct performance of home program was facilitated with verbal, visual, and tactile cueing. Self-Skilled Nursing Management: 1: advised that pt. activate the core with each exercise 2: dc exercises that cause pinching, or anterior hip pain Skilled Intervention: Skilled judgment in the selection of proper modification for activity of daily living/home management based on clinical presentation, deficits, and needs. Provided written instruction for activities of daily living techniques to facilitate proper performance and compliance. Reviewed patient specific diagnosis in relation to activities of daily living/home management. Activity progression based on professional judgement. Billing Manual TherapyTreatment Minutes: 10 Neuromuscular Re-Education Treatment Minutes: 10 Self-Care/Home Management Treatment Minutes: 10 Skilled Treatment Time Minutes (timed and untimed codes): 30 Total Session Time (minutes): 30 Session Start Time : 934 Session Stop Time : 100 Macey Kaiser, PT [facility] 05-31-2025 History of Presen t illness Narrative Program_ID:[id number] Access Code: [email or web address] URL: [email or web address] Date: 05-31-2025 Prepared By: Macey Kaiser Program Notes Exercises - Quadruped Rocking Slow - 2 x daily - 7 x weekly - 2 sets - 20 reps - Supine Bridge - 2 x daily - 7 x weekly - 2 sets - 20 reps - Single Leg Stance - 2 x daily - 7 x weekly - 1 sets - 5 reps - Squat with Chair Touch - 2 x daily - 7 x weekly - 2 sets - 5 reps - Plank on Knees - 2 x daily - 7 x weekly - 2 sets - 3 reps - Sidelying Hip Abduction - 2 x daily - 7 x weekly - 2 sets - 10 reps Episode Visit Count: 5 Therapist That Will Accept/Oversee The Plan Of Care: Macey Kaiser Start of Care Date: 05/01/25 Onset Date: 04/26/25 Plan of Care Certification Date: 02/21/25 Next Certification Due Date: 04/04/25 REHABILITATION AND SPORTS THERAPY PHYSICAL THERAPY PROGRESS REPORT PLAN OF CARE UPDATE: Assessment: Macey Sharon Tavon demonstrates improvements in standing, walking, walking in the house, and weight bearing. The patient has progressed toward goals. Patient continues to present with impairments in ADL's, balance, gait, independence in exercise, joint mobility, overall function, patient reported outcome measures, range of motion, strength, symptom management, and tissue tenderness that interfere with walking in the community, stair negotiation . Current prognosis is Good due to: acuteness of condition . The patient will benefit from continued skilled therapy services to meet the updated goals for this plan of care as noted below. Goals for Episode of Care: established 05/01/25 Goals updated on 05/31/2025. [place] in home exercise program. -- MET Patient will decrease pain to 1-2/10 with functional activities to allow patient to improve ambulation, transfers, and standing tolerance for ADLs. -- MET Perform walking community distances with decreased report of symptoms/pain in 12 weeks. -- Met Perform sleeping 6-8 hours without increased L hip pain. -- MET Normal gait. -- Reciprocal stair negotiation. -- Patient Goals: restore strength and mobility of the L hip -- Time Frame for Goals and Treatment : 07/26/25 Patient Goals: restore strength and mobility of the L hip Planned Interventions, Frequency, and Duration: 1x/week, 8 weeks Total Number of Visits Planned: 8 Patient to be seen for Gait Training (36200), Self-mcfp management (55739), Therapeutic activities (61561), Manual therapy (16248), Neuromuscular re-education (81315), Therapeutic exercise (04675) PLAN FOR NEXT VISIT: add leg press, hip abduction, progress bridges to adding a band, SUBJECTIVE: Post-op wk 5. Able to sleep well. Reports groin pain has resolved. Denies pinching pain. HEP going well.. Patient Goals: restore strength and mobility of the L hip Functional Limitations: walking in the community, stair negotiation Prior Level of Function: Independent without limitations Pain: Pain Pain Level: 0 Pain Location: Hip - Left Description: Aching Post Treatment Pain Post Treatment Pain Level: 0 Post Treatment Pain Location: Hip - Left PROMIS Scales 05/24/2025 05/08/2025 04/30/2025 Higher is Better Phys Func - T Score 30 (moderate dysfunction) Phys Func - Percentile 2 Self-Eff Symptom - T Score 42 (Average) 38 (Low) Self-Eff Symptom - Percentile 21 12 T-Score and Percentile Interpretation T-scores: mean of general population = 50. 5 points is clinically meaningfully difference Percentiles provide an indication of how the patient's score ranks in relation to the general population. Higher percentile rankings indicate better function/quality of life. 50th percentile is the average of the general population and indicates half of respondents had a worse score. OBJECTIVE MEASURES WITH LEVEL OF FUNCTION: LE AROM L Hip Flexion: 125 Degrees L Hip ABduction : 30 Degrees L Hip Internal Rotation: 35 Degrees L Hip External Rotation: 50 Degrees LE Flexibility R Hip Flexor Flexibility: wnl L Hip Flexor Flexibility: wnl LE Strength L Hip Extension: 3-/5 L Hip Flexion (L2): 3-/5 L Hip ABduction: 3/5 L Hip External Rotation: 3/5 Gait Gait: Independent Gait Distance (feet): 50 Gait Device: None Gait Deviations: General Deviations General Deviations/Observations: Trunk Control Decreased TREATMENT: Therapeutic Exercise: 1: seated upright bike, seat 7, 1:1 throughout, subjective collected level 3, 5 min 2: *Access Code: [email or web address] URL: [email or web address] Date: 05/31/2025 Prepared by: Macey Bynum Exercises - Quadruped Rocking Slow - 2 x daily - 7 x weekly - 2 sets - 20 reps - 2-3 hold - Supine Bridge - 2 x daily - 7 x weekly - 2 sets - 20 reps - Squat with Chair Touch - 2 x daily - 7 x weekly - 2 sets - 5 reps - Plank on Knees - 2 x daily - 7 x weekly - 2 sets - 3 reps - 30 hold - Sidelying Hip Abduction - 2 x daily - 7 x weekly - 2 sets - 10 reps 3: supine figure 4 stretch instructed no pressing down on the L knee, 2x30 sec Skilled Intervention: Patient was educated in proper exercise technique and purpose for exercises. Skilled judgment was used in selection of appropriate interventions. Neuromuscular Re-Education: 1: Single Leg Stance - 2 x daily - 7 x weekly - 1 sets - 5 reps - 30 hold - Skilled Intervention: Skilled judgment used to assess appropriate program for balance and coordination activity. Education in proprioceptive/kinesthetic awareness during standing. Education and demonstration for posture and positioning for tone management. Self-Skilled Nursing Management: 1: advised cont PROM with partner assist at home 2: advised pt. discuss with surgeon if she can sit in a figure 4 position, advised gradual prgression with the supine version at this time due to some tightness/stiffness felt supine Skilled Intervention: Skilled judgment in the selection of proper modification for activity of daily living/home management based on clinical presentation, deficits, and needs. Provided written instruction for activities of daily living techniques to facilitate proper performance and compliance. Reviewed patient specific diagnosis in relation to activities of daily living/home management. Billing Therapeutic Exercise Treatment Minutes: 32 Neuromuscular Re-Education Treatment Minutes: 3 Self-Care/Home Management Treatment Minutes: 5 Skilled Treatment Time Minutes (timed and untimed codes): 40 Total Session Time (minutes): 40 Session Start Time : 850 Session Stop Time : 930 Macey Kaiser PT documented in this encounter [facility] 05-31-2025 Note HNO ID: [id number] Author: MACEY KAISER PT Service: ? Author Type: Physical Therapist Type: Progress Notes Filed: 06/14/2025 09:26 Note Text: Episode Visit Count: 5 Therapist That Will Accept/Oversee The Plan Of Care: Macey Kaiser Start of Care Date: 05/01/25 Onset Date: 04/26/25 Plan of Care Certification Date: 02/21/25 Next Certification Due Date: 04/04/25 REHABILITATION AND SPORTS THERAPY PHYSICAL THERAPY PROGRESS REPORT PLAN OF CARE UPDATE: Assessment: Macey Campbell demonstrates improvements in standing, walking, walking in the house, and weight bearing. The patient has progressed toward goals. Patient continues to present with impairments in ADL's, balance, gait, independence in exercise, joint mobility, overall function, patient reported outcome measures, range of motion, strength, symptom management, and tissue tenderness that interfere with walking in the community, stair negotiation . Current prognosis is Good due to: acuteness of condition . The patient will benefit from continued skilled therapy services to meet the updated goals for this plan of care as noted below. Goals for Episode of Care: established 05/01/25 Goals updated on 05/31/2025. [place] in home exercise program. -- MET Patient will decrease pain to 1-2/10 with functional activities to allow patient to improve ambulation, transfers, and standing tolerance for ADLs. -- MET Perform walking community distances with decreased report of symptoms/pain in 12 weeks. -- Met Perform sleeping 6-8 hours without increased L hip pain. -- MET Normal gait. -- PROGRESSING Reciprocal stair negotiation. -- PROGRESSING Patient Goals: restore strength and mobility of the L hip -- PROGRESSING Time Frame for Goals and Treatment : 07/26/25 Patient Goals: restore strength and mobility of the L hip Planned Interventions, Frequency, and Duration: 1x/week, 8 weeks Total Number of Visits Planned: 8 Patient to be seen for Gait Training (08798), Self-mcfp management (72921), Therapeutic activities (22654), Manual therapy (53433), Neuromuscular re-education (69915), Therapeutic exercise (29436) PLAN FOR NEXT VISIT: add leg press, hip abduction, progress bridges to adding a band, SUBJECTIVE: Post-op wk 5. Able to sleep well. Reports groin pain has resolved. Denies pinching pain. HEP going well.. Patient Goals: restore strength and mobility of the L hip Functional Limitations: walking in the community, stair negotiation Prior Level of Function: Independent without limitations Pain: Pain Pain Level: 0 Pain Location: Hip - Left Description: Aching Post Treatment Pain Post Treatment Pain Level: 0 Post Treatment Pain Location: Hip - Left PROMIS Scales 06/07/2025 05/24/2025 05/08/2025 Higher is Better Phys Func - T Score 41 (mild dysfunction) 30 (moderate dysfunction) Phys Func - Percentile 18 2 Self-Eff Symptom - T Score 42 (Average) Self-Eff Symptom - Percentile 21 T-Score and Percentile Interpretation T-scores: mean of general population = 50. 5 points is clinically meaningfully difference Percentiles provide an indication of how the patient's score ranks in relation to the general population. Higher percentile rankings indicate better function/quality of life. 50th percentile is the average of the general population and indicates half of respondents had a worse score. OBJECTIVE MEASURES WITH LEVEL OF FUNCTION: LE AROM L Hip Flexion: 125 Degrees L Hip ABduction : 30 Degrees L Hip Internal Rotation: 35 Degrees L Hip External Rotation: 50 Degrees LE Flexibility R Hip Flexor Flexibility: wnl L Hip Flexor Flexibility: wnl LE Strength L Hip Extension: 3-/5 L Hip Flexion (L2): 3-/5 L Hip ABduction: 3/5 L Hip External Rotation: 3/5 Gait Gait: Independent Gait Distance (feet): 50 Gait Device: None Gait Deviations: General Deviations General Deviations/Observations: Trunk Control Decreased TREATMENT: Therapeutic Exercise: 1: seated upright bike, seat 7, 1:1 throughout, subjective collected level 3, 5 min 2: *Access Code: [email or web address] URL: [email or web address] Date: 05/31/2025 Prepared by: Macey Kaiser Exercises - Quadruped Rocking Slow - 2 x daily - 7 x weekly - 2 sets - 20 reps - 2-3 hold - Supine Bridge - 2 x daily - 7 x weekly - 2 sets - 20 reps - Squat with Chair Touch - 2 x daily - 7 x weekly - 2 sets - 5 reps - Plank on Knees - 2 x daily - 7 x weekly - 2 sets - 3 reps - 30 hold - Sidelying Hip Abduction - 2 x daily - 7 x weekly - 2 sets - 10 reps 3: supine figure 4 stretch instructed no pressing down on the L knee, 2x30 sec Skilled Intervention: Patient was educated in proper exercise technique and purpose for exercises. Skilled judgment was used in selection of appropriate interventions. Neuromuscular Re-Education: 1: Single Leg Stance - 2 x daily - 7 x weekly - 1 sets - 5 reps - 30 hold - Skilled Intervention: Skilled judg (more content not included)... [facility] 05-24-2025 History of Presen t illness Narrative Program_ID:[id number] Access Code: [email or web address] URL: [email or web address] Date: 05-24-2025 Prepared By: Macey Kaiser Program Notes Exercises - Standing Gluteal Sets - 1 x daily - 7 x weekly - 2 sets - 10 reps - Prone Hip Internal Rotation AROM - 2-3 x daily - 7 x weekly - 2 sets - 15 reps - Seated Transversus Abdominis Bracing - 1 x daily - 7 x weekly - 4 sets - 10 reps - Modified Richard Stretch - 2-3 x daily - 7 x weekly - 1 sets - 3 reps - Supine Hip and Knee Flexion AROM with [place] Ball - 2-3 x daily - 7 x weekly - 2 sets - 20 reps - Half Kneeling Hip Flexor Stretch - x daily - 7 x weekly - 2 sets - 15 reps - Prone Quadriceps Stretch with Strap - 2-3 x daily - 7 x weekly - 2 sets - 3 reps Episode Visit Count: 4 Therapist That Will Accept/Oversee The Plan Of Care: Macey Kaiser Start of Care Date: 05/01/25 Onset Date: 04/26/25 Plan of Care Certification Date: 02/21/25 Next Certification Due Date: 04/04/25 REHABILITATION AND SPORTS THERAPY PHYSICAL THERAPY TREATMENT NOTE ASSESSMENT: Macey Campbell tolerated the session with decreased symptoms. She demonstrated improvements in tolerance with hip extension stretching with repeated reps throughout visit as well as reports of reduced L groin pain. The patient will continue to benefit from ongoing skilled physical therapy to progress toward set goals. PLAN FOR NEXT VISIT: add resistance to stantionary bike warm up SUBJECTIVE: post op wk 4. Has L groin pain. Patient Goals: restore strength and mobility of the L hip Pain: Pain Pain Location: Hip - Left Description: Aching OBJECTIVE MEASURES WITH LEVEL OF FUNCTION: TREATMENT: Therapeutic Exercise: 1: seated upright bike, seat 7, 1:1 throughout, subjective collected level 0 5 min 2: L SL piriformis stretch slightly flexed RLE, straight LLE, hooking L under R foot 3x30 sec 3: *Access Code: [email or web address] URL: [email or web address] Date: 05/24/2025 Prepared by: Macey Bynum Exercises - Standing Gluteal Sets - 1 x daily - 7 x weekly - 2 sets - 10 reps - 5 hold - Prone Hip Internal Rotation AROM - 2-3 x daily - 7 x weekly - 2 sets - 15 reps - Seated Transversus Abdominis Bracing - 1 x daily - 7 x weekly - 4 sets - 10 reps - Modified Richard Stretch - 2-3 x daily - 7 x weekly - 1 sets - 3 reps - 30 hold - Supine Hip and Knee Flexion AROM with [place] Ball - 2-3 x daily - 7 x weekly - 2 sets - 20 reps - Half Kneeling Hip Flexor Stretch - 7 x weekly - 2 sets - 15 reps - Prone Quadriceps Stretch with Strap - 2-3 x daily - 7 x weekly - 2 sets - 3 reps - 30 hold Skilled Intervention: Patient was educated in proper exercise technique and purpose for exercises. Skilled judgment was used in selection of appropriate interventions. Provided written instruction for home exercise program to facilitate proper performance and compliance. Correct performance of therapeutic exercises was facilitated with verbal, visual, and tactile cuing. Educated patient on rationale for performing exercises in regards to decreasing fatigue , including balance, increase ease of ADL, and ROM and function . Patient education as noted. Manual Therapy: 1: prone L hip PROM ER 1x20 2: prone L hip extension PROM 2x10 3: prone L hip IR 2x10 Skilled Intervention: Manual skills to improve joint mobility, ROM, and decrease pain. Utilized anatomy knowledge of the clinician, and assessment of patient's response to intervention. Self-Skilled Nursing Management: 1: discussed ROM precautions, partner may increased ROM of abduction, ER, flexion, and extension Skilled Intervention: Skilled judgment in the selection of proper modification for activity of daily living/home management based on clinical presentation, deficits, and needs. Provided written instruction for activities of daily living techniques to facilitate proper performance and compliance. Activity progression based on professional judgement. Provided written instruction for home program to facilitate proper performance and compliance. Billing Therapeutic Exercise Treatment Minutes: 25 Manual TherapyTreatment Minutes: 10 Self-Care/Home Management Treatment Minutes: 4 Skilled Treatment Time Minutes (timed and untimed codes): 39 Total Session Time (minutes): 39 Session Start Time : 1235 Session Stop Time : 1314 Macey Kaiser PT documented in this encounter [facility] 05-24-2025 Note HNO ID: [id number] Author: MACEY KAISER PT Service: ? Author Type: Physical Therapist Type: Progress Notes Filed: 05/24/2025 13:13 Note Text: Episode Visit Count: 4 Therapist That Will Accept/Oversee The Plan Of Care: Macey Kaiser Start of Care Date: 05/01/25 Onset Date: 04/26/25 Plan of Care Certification Date: 02/21/25 Next Certification Due Date: 04/04/25 REHABILITATION AND SPORTS THERAPY PHYSICAL THERAPY TREATMENT NOTE ASSESSMENT: Macey Sharon Campbell tolerated the session with decreased symptoms. She demonstrated improvements in tolerance with hip extension stretching with repeated reps throughout visit as well as reports of reduced L groin pain. The patient will continue to benefit from ongoing skilled physical therapy to progress toward set goals. PLAN FOR NEXT VISIT: add resistance to stantionary bike warm up SUBJECTIVE: post op wk 4. Has L groin pain. Patient Goals: restore strength and mobility of the L hip Pain: Pain Pain Location: Hip - Left Description: Aching OBJECTIVE MEASURES WITH LEVEL OF FUNCTION: TREATMENT: Therapeutic Exercise: 1: seated upright bike, seat 7, 1:1 throughout, subjective collected level 0 5 min 2: L SL piriformis stretch slightly flexed RLE, straight LLE, hooking L under R foot 3x30 sec 3: *Access Code: [email or web address] URL: [email or web address] Date: 05/24/2025 Prepared by: Macey Kaiser Exercises - Standing Gluteal Sets - 1 x daily - 7 x weekly - 2 sets - 10 reps - 5 hold - Prone Hip Internal Rotation AROM - 2-3 x daily - 7 x weekly - 2 sets - 15 reps - Seated Transversus Abdominis Bracing - 1 x daily - 7 x weekly - 4 sets - 10 reps - Modified Richard Stretch - 2-3 x daily - 7 x weekly - 1 sets - 3 reps - 30 hold - Supine Hip and Knee Flexion AROM with [place] Ball - 2-3 x daily - 7 x weekly - 2 sets - 20 reps - Half Kneeling Hip Flexor Stretch - 7 x weekly - 2 sets - 15 reps - Prone Quadriceps Stretch with Strap - 2-3 x daily - 7 x weekly - 2 sets - 3 reps - 30 hold Skilled Intervention: Patient was educated in proper exercise technique and purpose for exercises. Skilled judgment was used in selection of appropriate interventions. Provided written instruction for home exercise program to facilitate proper performance and compliance. Correct performance of therapeutic exercises was facilitated with verbal, visual, and tactile cuing. Educated patient on rationale for performing exercises in regards to decreasing fatigue , including balance, increase ease of ADL, and ROM and function . Patient education as noted. Manual Therapy: 1: prone L hip PROM ER 1x20 2: prone L hip extension PROM 2x10 3: prone L hip IR 2x10 Skilled Intervention: Manual skills to improve joint mobility, ROM, and decrease pain. Utilized anatomy knowledge of the clinician, and assessment of patient's response to intervention. Self-Skilled Nursing Management: 1: discussed ROM precautions, partner may increased ROM of abduction, ER, flexion, and extension Skilled Intervention: Skilled judgment in the selection of proper modification for activity of daily living/home management based on clinical presentation, deficits, and needs. Provided written instruction for activities of daily living techniques to facilitate proper performance and compliance. Activity progression based on professional judgement. Provided written instruction for home program to facilitate proper performance and compliance. Billing Therapeutic Exercise Treatment Minutes: 25 Manual TherapyTreatment Minutes: 10 Self-Care/Home Management Treatment Minutes: 4 Skilled Treatment Time Minutes (timed and untimed codes): 39 Total Session Time (minutes): 39 Session Start Time : 1235 Session Stop Time : 1314 Macey Kaiser, PT [facility] 05-17-2025 History of Presen t illness Narrative Program_ID:[id number] Access Code: [email or web address] URL: [email or web address] Date: 05-17-2025 Prepared By: Macey Kaiser Program Notes Exercises - Standing Hip Internal Rotation AAROM on Stool - 1 x daily - 7 x weekly - 2 sets - 15 reps - Standing Gluteal Sets - 1 x daily - 7 x weekly - 2 sets - 10 reps - Prone Hip Internal Rotation AROM - 1 x daily - 7 x weekly - 2 sets - 15 reps - cc Hip Isometric External Rotation Prone - 1 x daily - 7 x weekly - 2 sets - 10 reps - Prone Knee Flexion - 1 x daily - 7 x weekly - 2 sets - 15 reps - Seated Transversus Abdominis Bracing - 1 x daily - 7 x weekly - 4 sets - 10 reps - Supine Hip Adduction Isometric with Ball - 1 x daily - 7 x weekly - 2 sets - 5 reps Episode Visit Count: 3 Therapist That Will Accept/Oversee The Plan Of Care: Macey Kaiser Start of Care Date: 05/01/25 Onset Date: 04/26/25 Plan of Care Certification Date: 02/21/25 Next Certification Due Date: 04/04/25 REHABILITATION AND SPORTS THERAPY PHYSICAL THERAPY TREATMENT NOTE ASSESSMENT: Macey Velasco Campbell tolerated the session with fatigue. She demonstrated improvements in gait presenting without brace and using only one crutch. Heel strike to toe push off pattern greatly improved with cues and demonstration. The patient will continue to benefit from ongoing skilled physical therapy to progress toward set goals. PLAN FOR NEXT VISIT: hold on SLR exercise due to reports of pain. seated TA on micronesian ball SUBJECTIVE: post op wk 3. Pt. has been dc from brace. SLR cause pain. Patient Goals: restore strength and mobility of the L hip Pain: Pain Pain Level: 0 Pain Location: Hip - Left Description: Aching Post Treatment Pain Post Treatment Pain Level: 0 Post Treatment Pain Location: Hip - Left Post Treatment Pain Description: Aching OBJECTIVE MEASURES WITH LEVEL OF FUNCTION: TREATMENT: Therapeutic Exercise: 1: seated upright bike, seat 7, 1:1 throughout, subjective collected level 0 5 min 2: hip abd isometrics 2x5, 10 sec hold gait belt around the legs 3: hip add isometrics 2x5, 10 sec hold ball between the knees 4: hook lying glute sets 2x5, 10 sec 5: L hip IR PROM with office chair 2x20 6: seated TA activation 4x10 Skilled Intervention: Patient was educated in proper exercise technique and purpose for exercises. Skilled judgment was used in selection of appropriate interventions. Provided written instruction for home exercise program to facilitate proper performance and compliance. Educated patient on rationale for performing exercises in regards to decreasing fatigue , increase ease of ADL, and ROM and function . Patient education as noted. Gait Training: Distance (feet): 80' 8x with crutch, 80' 8x without crutch Gait Cues: heel strike, toe push off Assistive Device: x1 crutch Assist Level: supervision Skilled Intervention: Patient was provided supervision during pre-gait/gait training to prevent falls and insure safety. Facilitated proper gait cycle with the use of verbal, visual, and tactile cues for correction of gait deviations identified in the objective section above. Billing Therapeutic Exercise Treatment Minutes: 30 Gait Training Treatment Minutes: 10 Skilled Treatment Time Minutes (timed and untimed codes): 40 Total Session Time (minutes): 40 Session Start Time : 1242 Session Stop Time : 1322 Macey Kaiser PT documented in this encounter [facility] 05-17-2025 Note HNO ID: [id number] Author: MACEY KAISER PT Service: ? Author Type: Physical Therapist Type: Progress Notes Filed: 05/17/2025 13:27 Note Text: Episode Visit Count: 3 Therapist That Will Accept/Oversee The Plan Of Care: Macey Kaiser Start of Care Date: 05/01/25 Onset Date: 04/26/25 Plan of Care Certification Date: 02/21/25 Next Certification Due Date: 04/04/25 REHABILITATION AND SPORTS THERAPY PHYSICAL THERAPY TREATMENT NOTE ASSESSMENT: Macey Campbell tolerated the session with fatigue. She demonstrated improvements in gait presenting without brace and using only one crutch. Heel strike to toe push off pattern greatly improved with cues and demonstration. The patient will continue to benefit from ongoing skilled physical therapy to progress toward set goals. PLAN FOR NEXT VISIT: hold on SLR exercise due to reports of pain. seated TA on micronesian ball SUBJECTIVE: post op wk 3. Pt. has been dc from brace. SLR cause pain. Patient Goals: restore strength and mobility of the L hip Pain: Pain Pain Level: 0 Pain Location: Hip - Left Description: Aching Post Treatment Pain Post Treatment Pain Level: 0 Post Treatment Pain Location: Hip - Left Post Treatment Pain Description: Aching OBJECTIVE MEASURES WITH LEVEL OF FUNCTION: TREATMENT: Therapeutic Exercise: 1: seated upright bike, seat 7, 1:1 throughout, subjective collected level 0 5 min 2: hip abd isometrics 2x5, 10 sec hold gait belt around the legs 3: hip add isometrics 2x5, 10 sec hold ball between the knees 4: hook lying glute sets 2x5, 10 sec 5: L hip IR PROM with office chair 2x20 6: seated TA activation 4x10 Skilled Intervention: Patient was educated in proper exercise technique and purpose for exercises. Skilled judgment was used in selection of appropriate interventions. Provided written instruction for home exercise program to facilitate proper performance and compliance. Educated patient on rationale for performing exercises in regards to decreasing fatigue , increase ease of ADL, and ROM and function . Patient education as noted. Gait Training: Distance (feet): 80' 8x with crutch, 80' 8x without crutch Gait Cues: heel strike, toe push off Assistive Device: x1 crutch Assist Level: supervision Skilled Intervention: Patient was provided supervision during pre-gait/gait training to prevent falls and insure safety. Facilitated proper gait cycle with the use of verbal, visual, and tactile cues for correction of gait deviations identified in the objective section above. Billing Therapeutic Exercise Treatment Minutes: 30 Gait Training Treatment Minutes: 10 Skilled Treatment Time Minutes (timed and untimed codes): 40 Total Session Time (minutes): 40 Session Start Time : 1242 Session Stop Time : 1322 Macey Kaiser, PT [facility] 05-16-2025 Instructions Miakel Hector PA-C - 05/16/2025 9:50 AM EDT - OK to shower with surgical site uncovered. - No submerging, scrubbing, topical ointments/lotions x 6 weeks post op. - Remove steri strips in 2 weeks if still adhered to the skin - Continue physical therapy and HEP - Follow up as planned with Dr. Verma documented in this encounter [facility] 05-16-2025 History of Presen t illness Narrative GLOBAL/POSTOP ENCOUNTER Chief Complaint: PO left hip HPI: Macey Campbell is a 34 year old year old female who returned today for 2.5 weeks post op: s/p left hip arthroscopic labrum repair, femoroplasty, acetabuloplasty, capsular closure (DOS: 04/26/2025). Pain: controlled Function: improving Therapy: outpatient PT Number of narcotics: 12 tablets ROS reviewed Allergies, medications, past surgical history and past medical history were reviewed per this encounter. Physical Examination: Region: Hip LEFT Exam: Incision: healing without evidence of infection, sutures in tact AROM: deferred PROM: deferred Swelling/Effusion: none Muscle Strength: deferred DP and PT pulses palpable Negative leslie's test 5/5 ankle DF and PF Assessment and Plan: (Z98.890) Status post arthroscopy of hip (primary encounter diagnosis) (Z98.890) Post-operative state 2.5 weeks s/p LEFT hip scope, doing very well. - OK to wean brace - Weightbearing progression, per protocol. - Continue PT and HEP, per protocol - Reviewed appropriate post operative pain management. - Continue DVT ppx as outlined - Sutures removed. No submerging, scrubbing, topical ointments/lotions x 6 weeks post op. - Follow up in [address] Verma, as planned - RTW letter with restrictions provided. Maikel Hector PA-C Sports Medicine/Orthopaedic Surgery documented in this encounter [facility] 05-16-2025 Note HNO ID: [id number] Author: MAIKEL HECTOR PA-C Service: ? Author Type: Physician Compilation Clerk Type: Progress Notes Filed: 05/16/2025 10:03 Note Text: GLOBAL/POSTOP ENCOUNTER Chief Complaint: PO left hip HPI: Macey Campbell is a 34 year old year old female who returned today for 2.5 weeks post op: s/p left hip arthroscopic labrum repair, femoroplasty, acetabuloplasty, capsular closure (DOS: 04/26/2025). Pain: controlled Function: improving Therapy: outpatient PT Number of narcotics: 12 tablets ROS reviewed Allergies, medications, past surgical history and past medical history were reviewed per this encounter. Physical Examination: Region: Hip LEFT Exam: Incision: healing without evidence of infection, sutures in tact AROM: deferred PROM: deferred Swelling/Effusion: none Muscle Strength: deferred DP and PT pulses palpable Negative leslie's test 5/5 ankle DF and PF Assessment and Plan: (Z98.890) Status post arthroscopy of hip (primary encounter diagnosis) (Z98.890) Post-operative state 2.5 weeks s/p LEFT hip scope, doing very well. - OK to wean brace - Weightbearing progression, per protocol. - Continue PT and HEP, per protocol - Reviewed appropriate post operative pain management. - Continue DVT ppx as outlined - Sutures removed. No submerging, scrubbing, topical ointments/lotions x 6 weeks post op. - Follow up in [address] Verma, as planned - RTW letter with restrictions provided. Maikel Hector PA-C Sports Medicine/Orthopaedic Surgery [facility] 05-10-2025 History of Presen t illness Narrative Program_ID:[id number] Access Code: [email or web address] URL: [email or web address] Date: 05-10-2025 Prepared By: Macey Kaiser Program Notes Exercises - Standing Hip Internal Rotation AAROM on Stool - 2 x daily - 7 x weekly - 2 sets - 15 reps - Standing Gluteal Sets - 2 x daily - 7 x weekly - 2 sets - 10 reps - Prone Hip Internal Rotation AROM - 2 x daily - 7 x weekly - 2 sets - 15 reps - cc Hip Isometric External Rotation Prone - 2 x daily - 7 x weekly - 2 sets - 10 reps - Prone Knee Flexion - 2 x daily - 7 x weekly - 2 sets - 15 reps - Seated Transversus Abdominis Bracing - 2 x daily - 7 x weekly - 4 sets - 10 reps Episode Visit Count: 2 Therapist That Will Accept/Oversee The Plan Of Care: Macey Kaiser Start of Care Date: 05/01/25 Onset Date: 04/26/25 Plan of Care Certification Date: 02/21/25 Next Certification Due Date: 04/04/25 REHABILITATION AND SPORTS THERAPY PHYSICAL THERAPY TREATMENT NOTE ASSESSMENT: Macey Campbell tolerated the session with decreased symptoms. She demonstrated improvements in posture and gait pattern when the crutches were adjusted to the appropriate height and food production associate. The patient will continue to benefit from ongoing skilled physical therapy to progress toward set goals. PLAN FOR NEXT VISIT: pt. to f/u with surgeon on may 16. Pt. is getting 2 hours of tummy time at home now that she has moved back into her bedroom downstairs. progress to wk 3 of protocol SUBJECTIVE: 2 weeks post-op today. Denies pinching sensation with HEP. HEP going well. L hip feels so much better. Pain: Pain Pain Level: 3 Pain Location: Hip - Left Description: Aching Post Treatment Pain Post Treatment Pain Location: Hip - Left Post Treatment Pain Description: Aching OBJECTIVE MEASURES WITH LEVEL OF FUNCTION: TREATMENT: Therapeutic Exercise: 1: seated upright bike, seat 7, 1:1 throughout, subjective collected level 0 5 min 2: prone lay 2 min before start of prone hip exercises 3: *Access Code: [email or web address] URL: [email or web address] Date: 05/10/2025 Prepared by: Macey Orozco'Kevin Exercises - Standing Hip Internal Rotation AAROM on Stool - 2 x daily - 7 x weekly - 2 sets - 15 reps - Standing Gluteal Sets - 2 x daily - 7 x weekly - 2 sets - 10 reps - 5 hold - Prone Hip Internal Rotation AROM - 2 x daily - 7 x weekly - 2 sets - 15 reps - cc Hip Isometric External Rotation Prone - 2 x daily - 7 x weekly - 2 sets - 10 reps - 5 hold - Prone Knee Flexion - 2 x daily - 7 x weekly - 2 sets - 15 reps - Seated Transversus Abdominis Bracing - 2 x daily - 7 x weekly - 4 sets - 10 reps Skilled Intervention: Patient was educated in proper exercise technique and purpose for exercises. Skilled judgment was used in selection of appropriate interventions. Provided written instruction for home exercise program to facilitate proper performance and compliance. Correct performance of therapeutic exercises was facilitated with verbal, visual, and tactile cuing. Educated patient on rationale for performing exercises in regards to decreasing fatigue , including balance, increase ease of ADL, and ROM and function . Patient education as noted. Gait Training: Distance (feet): 100 Gait Cues: upright trunk posture Assistive Device: B crutches, handles adjusted to be level with B wrists Assist Level: SBA, verbal cues Skilled Intervention: Patient was provided supervision during pre-gait/gait training to prevent falls and insure safety. Gait belt utilized during session for safety. Self-Skilled Nursing Management: 1: correct adjustment of B crutches Skilled Intervention: Skilled judgment in the selection of proper modification for activity of daily living/home management based on clinical presentation, deficits, and needs. Provided written instruction for activities of daily living techniques to facilitate proper performance and compliance. Reviewed patient specific diagnosis in relation to activities of daily living/home management. Activity progression based on professional judgement. Reviewed and educated patient on additions/changes for home program as noted above with an (*). Billing Therapeutic Exercise Treatment Minutes: 25 Self-Care/Home Management Treatment Minutes: 5 Gait Training Treatment Minutes: 10 Skilled Treatment Time Minutes (timed and untimed codes): 40 Total Session Time (minutes): 40 Session Start Time : 1320 Session Stop Time : 1400 Maecy Kaiser PT documented in this encounter [facility] 05-10-2025 Note HNO ID: [id number] Author: MACEY KIASER PT Service: ? Author Type: Physical Therapist Type: Progress Notes Filed: 05/10/2025 13:59 Note Text: Episode Visit Count: 2 Therapist That Will Accept/Oversee The Plan Of Care: Macey Kaiser Start of Care Date: 05/01/25 Onset Date: 04/26/25 Plan of Care Certification Date: 02/21/25 Next Certification Due Date: 04/04/25 REHABILITATION AND SPORTS THERAPY PHYSICAL THERAPY TREATMENT NOTE ASSESSMENT: Macey Campbell tolerated the session with decreased symptoms. She demonstrated improvements in posture and gait pattern when the crutches were adjusted to the appropriate height and food production associate. The patient will continue to benefit from ongoing skilled physical therapy to progress toward set goals. PLAN FOR NEXT VISIT: pt. to f/u with surgeon on may 16. Pt. is getting 2 hours of tummy time at home now that she has moved back into her bedroom downstairs. progress to wk 3 of protocol SUBJECTIVE: 2 weeks post-op today. Denies pinching sensation with HEP. HEP going well. L hip feels so much better. Pain: Pain Pain Level: 3 Pain Location: Hip - Left Description: Aching Post Treatment Pain Post Treatment Pain Location: Hip - Left Post Treatment Pain Description: Aching OBJECTIVE MEASURES WITH LEVEL OF FUNCTION: TREATMENT: Therapeutic Exercise: 1: seated upright bike, seat 7, 1:1 throughout, subjective collected level 0 5 min 2: prone lay 2 min before start of prone hip exercises 3: *Access Code: [email or web address] URL: [email or web address] Date: 05/10/2025 Prepared by: Macey Kaiser Exercises - Standing Hip Internal Rotation AAROM on Stool - 2 x daily - 7 x weekly - 2 sets - 15 reps - Standing Gluteal Sets - 2 x daily - 7 x weekly - 2 sets - 10 reps - 5 hold - Prone Hip Internal Rotation AROM - 2 x daily - 7 x weekly - 2 sets - 15 reps - cc Hip Isometric External Rotation Prone - 2 x daily - 7 x weekly - 2 sets - 10 reps - 5 hold - Prone Knee Flexion - 2 x daily - 7 x weekly - 2 sets - 15 reps - Seated Transversus Abdominis Bracing - 2 x daily - 7 x weekly - 4 sets - 10 reps Skilled Intervention: Patient was educated in proper exercise technique and purpose for exercises. Skilled judgment was used in selection of appropriate interventions. Provided written instruction for home exercise program to facilitate proper performance and compliance. Correct performance of therapeutic exercises was facilitated with verbal, visual, and tactile cuing. Educated patient on rationale for performing exercises in regards to decreasing fatigue , including balance, increase ease of ADL, and ROM and function . Patient education as noted. Gait Training: Distance (feet): 100 Gait Cues: upright trunk posture Assistive Device: B crutches, handles adjusted to be level with B wrists Assist Level: SBA, verbal cues Skilled Intervention: Patient was provided supervision during pre-gait/gait training to prevent falls and insure safety. Gait belt utilized during session for safety. Self-Skilled Nursing Management: 1: correct adjustment of B crutches Skilled Intervention: Skilled judgment in the selection of proper modification for activity of daily living/home management based on clinical presentation, deficits, and needs. Provided written instruction for activities of daily living techniques to facilitate proper performance and compliance. Reviewed patient specific diagnosis in relation to activities of daily living/home management. Activity progression based on professional judgement. Reviewed and educated patient on additions/changes for home program as noted above with an (*). Billing Therapeutic Exercise Treatment Minutes: 25 Self-Care/Home Management Treatment Minutes: 5 Gait Training Treatment Minutes: 10 Skilled Treatment Time Minutes (timed and untimed codes): 40 Total Session Time (minutes): 40 Session Start Time : 1320 Session Stop Time : 1400 Macey Kaiser PT [facility] 05-01-2025 Note HNO ID: [id number] Author: MACEY KAISER PT Service: ? Author Type: Physical Therapist Type: Progress Notes Filed: 05/16/2025 08:04 Note Text: Episode Visit Count: 1 Therapist That Will Accept/Oversee The Plan Of Care: Macey Kaiser Start of Care Date: 05/01/25 Onset Date: 04/26/25 Plan of Care Certification Date: 02/21/25 Next Certification Due Date: 04/04/25 Patient Identified by Name and Date of : Yes REHABILITATION AND SPORTS THERAPY PHYSICAL THERAPY EVALUATION PLAN OF CARE: Assessment: Macey Campbell presents with diagnosis of tear of left acetabular labrum, initial encounter that interferes with weight bearing, walking in the house, walking in the community, stair negotiation, standing, walking . The patient presents with impairments in ADL's, balance, flexibility, gait, independence in exercise, joint mobility, overall function, patient reported outcome measures, posture, range of motion, strength, stress management, symptom management, and tissue tenderness. PROMIS? (Patient-Reported Outcomes Measurement Information System) scores were reviewed and identified as a rehabilitation concern. Prognosis for therapy is Good due to: acuteness of condition . The patient will benefit from skilled therapy services to meet the goals established for this plan of care as noted below. Goals for Episode of Care: established 05/01/25 [place] in home exercise program. Patient will decrease pain to 1-2/10 with functional activities to allow patient to improve ambulation, transfers, and standing tolerance for ADLs. Perform walking community distances with decreased report of symptoms/pain in 12 weeks. Perform sleeping 6-8 hours without increased L hip pain. Normal gait. Reciprocal stair negotiation. Patient Goals: restore strength and mobility of the L hip Time Frame for Goals and Treatment : 07/24/25 Planned Interventions, Frequency, and Duration: Current Frequency: 1x/week Duration: 12 weeks Total Number of Visits Planned: 12 Planned Treatment Interventions: Gait Training (55785), Self-mcfp management (57952), Therapeutic activities (17440), Manual therapy (96006), Neuromuscular re-education (29209), Therapeutic exercise (56694) PLAN FOR NEXT VISIT: Pt. will f/u with surgeon May 16, 2025. Stationary bike without resistance - progress exercises as per Dr. Dar Verma's protocol Patient demonstrates good understanding of plan of care and treatment. The above goals and plan of care were discussed and agreed upon by patient/family. SUBJECTIVE: for s/p L hip L arthroscopy with femoroplasty perfomred by Dr. Dar De Oliveira . Pt. would like to return to walking, hiking, and stair negociation. Pt. was given ankle pumps, glute sets, TA activation supine. Pt. has had her doing the PROM hip circumduction and flexion. (Pt. 15 min late and had to wait for her ride to pick her up.) Patient Goals: restore strength and mobility of the L hip Functional Limitations: weight bearing, walking in the house, walking in the community, stair negotiation, standing, walking Prior Level of Function: Independent without limitations Relevant History Recreation / Current Exercise: hiking Intake Information: Prescription present Previous Treatment: Physical Therapy , Surgery Falls Interview: No positive findings with falls interview Pain: Pain Pain Level: 4 Pain Location: Hip - Left Description: Aching Post Treatment Pain Post Treatment Pain Level: 7 Post Treatment Pain Location: Hip - Left Post Treatment Pain Description: Aching PROMIS Scales 05/08/2025 04/30/2025 04/04/2025 Higher is Better Phys Func - T Score 30 (moderate dysfunction) 35 (moderate dysfunction) Phys Func - Percentile 2 7 Self-Eff Symptom - T Score 38 (Low) Self-Eff Symptom - Percentile 12 T-scores: mean of general population = 50. 5 points is clinically meaningfully difference Percentiles provide an indication of how the patient's score ranks in relation to the general population. Higher percentile rankings indicate better function/quality of life. 50th percentile is the average of the general population and indicates half of respondents had a worse score. OBJECTIVE MEASURES WITH LEVEL OF FUNCTION: LE PROM L Hip Extension : (precautions 0 degrees) L Hip Flexion: 90 Degrees L Hip ABduction: 25 Degrees L Hip Internal Rotation: (~25 before pain in supine) L Hip External Rotation: (0 degrees precautions) LE Flexibility Flexibility: Hip Flexor Flexibility L Hip Flexor Flexibility: NT due to precautions LE Strength L LE Strength: hip strength NT due to precautions L Knee Extension (L3): 2+/5 Gait Gait: Comments Gait Observation: flexed posture over B crutches, requires max cues for correction, inconsistent carry over. step to pattern. Brace/Orthotics: Brace setting 15 Education: Education Learning Preferences: Demonstration, Explanatio (more content not included)... [facility] 05-01-2025 History of Presen t illness Narrative Images from the original note were not included. Episode Visit Count: 1 Therapist That Will Accept/Oversee The Plan Of Care: Macey ReynaKevin Start of Care Date: 05/01/25 Onset Date: 04/26/25 Plan of Care Certification Date: 02/21/25 Next Certification Due Date: 04/04/25 Patient Identified by Name and Date of : Yes REHABILITATION AND SPORTS THERAPY PHYSICAL THERAPY EVALUATION PLAN OF CARE: Assessment: Macey Campbell presents with diagnosis of tear of left acetabular labrum, initial encounter that interferes with weight bearing, walking in the house, walking in the community, stair negotiation, standing, walking . The patient presents with impairments in ADL's, balance, flexibility, gait, independence in exercise, joint mobility, overall function, patient reported outcome measures, posture, range of motion, strength, stress management, symptom management, and tissue tenderness. PROMIS (Patient-Reported Outcomes Measurement Information System) scores were reviewed and identified as a rehabilitation concern. Prognosis for therapy is Good due to: acuteness of condition . The patient will benefit from skilled therapy services to meet the goals established for this plan of care as noted below. Goals for Episode of Care: established 05/01/25 [place] in home exercise program. Patient will decrease pain to 1-2/10 with functional activities to allow patient to improve ambulation, transfers, and standing tolerance for ADLs. Perform walking community distances with decreased report of symptoms/pain in 12 weeks. Perform sleeping 6-8 hours without increased L hip pain. Normal gait. Reciprocal stair negotiation. Patient Goals: restore strength and mobility of the L hip Time Frame for Goals and Treatment : 07/24/25 Planned Interventions, Frequency, and Duration: Current Frequency: 1x/week Duration: 12 weeks Total Number of Visits Planned: 12 Planned Treatment Interventions: Gait Training (75920), Self-mcfp management (90513), Therapeutic activities (23442), Manual therapy (94239), Neuromuscular re-education (96536), Therapeutic exercise (01639) PLAN FOR NEXT VISIT: Pt. will f/u with surgeon May 16, 2025. Stationary bike without resistance, Patient demonstrates good understanding of plan of care and treatment. The above goals and plan of care were discussed and agreed upon by patient/family. SUBJECTIVE: for s/p L hip L arthroscopy with femoroplasty perfomred by Dr. Dar De Oliveira . Pt. would like to return to walking, hiking, and stair negociation. Pt. was given ankle pumps, glute sets, TA activation supine. Pt. has had her doing the PROM hip circumduction and flexion. Patient Goals: restore strength and mobility of the L hip Functional Limitations: weight bearing, walking in the house, walking in the community, stair negotiation, standing, walking Prior Level of Function: Independent without limitations Relevant History Recreation / Current Exercise: hiking Intake Information: Prescription present Previous Treatment: Physical Therapy , Surgery Falls Interview: No positive findings with falls interview Pain: Pain Pain Level: 4 Pain Location: Hip - Left Post Treatment Pain Post Treatment Pain Level: 7 Post Treatment Pain Location: Hip - Left PROMIS Scales 04/30/2025 04/04/2025 02/20/2025 Higher is Better Phys Func - T Score 35 (moderate dysfunction) 38 (moderate dysfunction) Phys Func - Percentile 7 12 Self-Eff Symptom - T Score 38 (Low) 39 (Low) Self-Eff Symptom - Percentile 12 14 T-scores: mean of general population = 50. 5 points is clinically meaningfully difference Percentiles provide an indication of how the patient's score ranks in relation to the general population. Higher percentile rankings indicate better function/quality of life. 50th percentile is the average of the general population and indicates half of respondents had a worse score. OBJECTIVE MEASURES WITH LEVEL OF FUNCTION: LE PROM L Hip Extension : (precautions 0 degrees) L Hip Flexion: 90 Degrees L Hip ABduction: 25 Degrees L Hip Internal Rotation: (~25 before pain in supine) L Hip External Rotation: (0 degrees precautions) LE Flexibility Flexibility: Hip Flexor Flexibility L Hip Flexor Flexibility: NT due to precautions LE Strength L LE Strength: hip strength NT due to precautions L Knee Extension (L3): 2+/5 Gait Gait: Comments Gait Observation: flexed posture over B crutches, requires max cues for correction, inconsistent carry over. step to pattern. Brace/Orthotics: Brace setting 15- Education: Education Learning Preferences: Demonstration, Explanation, Performance, Printed Materials Barriers: Acuity of Illness Learning/educational needs: Home exercise program, Plan of Care, Gait Training, Posture Education Provided: Yes, see treatment interventions for education provided Education Provided To: Patient Education Mode/Type: Demonstration, Explanation/Discussion, Literature/Printed Materials, Performance Response to Education/Teach Back: States/Identifies, Return Demonstration TREATMENT: PT Treatment Interventions: Therapeutic Exercise, Self-Skilled Nursing Management, Manual Therapy Evaluation Therapeutic Exercise: 1: L knee SAQ 2x12 Skilled Intervention: Patient was educated in proper exercise technique and purpose for exercises. Skilled judgment was used in selection of appropriate interventions. Provided written instruction for home exercise program to facilitate proper performance and compliance. Correct performance of therapeutic exercises was facilitated with verbal, visual, and tactile cuing. Educated patient on rationale for performing exercises in regards to decreasing fatigue , increase ease of ADL, and ROM and function . Patient education as noted. Manual Therapy: 1: L hip PROM flexion to 90 1x10 2: L hip PROM abd to 25 1x10 Skilled Intervention: Manual skills to improve joint mobility, ROM, and decrease pain. Utilized anatomy knowledge of the clinician, and assessment of patient's response to intervention. Self-Skilled Nursing Management: 1: discussed protocol - PT provided demonstration of ROM precautions 2: reviewed HEP and discussed correct performance Skilled Intervention: Skilled judgment in the selection of proper modification for activity of daily living/home management based on clinical presentation, deficits, and needs. Provided written instruction for activities of daily living techniques to facilitate proper performance and compliance. Reviewed patient specific diagnosis in relation to activities of daily living/home management. Activity progression based on professional judgement. Moderate verbal cues for maintaining neutral spine alignment. Provided written instruction for home program to facilitate proper performance and compliance. Correct performance of home program was facilitated with verbal, visual, and tactile cueing. Billing * Evaluation Low Complexity: 1 Unit Therapeutic Exercise Treatment Minutes: 3 Manual TherapyTreatment Minutes: 5 Self-Care/Home Management Treatment Minutes: 5 Skilled Treatment Time Minutes (timed and untimed codes): 30 Total Session Time (minutes): 30 Session Start Time : 1115 Session Stop Time : 1145 Macey Kaiser PT documented in this encounter [facility] 04-26-2025 Note HNO ID: [id number] Author: MARY WILLARD APRN.SUPERVISOR PAINT DEPARTMENT Service: ? Author Type: Nurse Racker Octave Board Type: Anesthesia Procedure Notes Filed: 04/26/2025 09:11 Note Text: ANESTHESIOLOGY PROCEDURE NOTE Airway General Information Procedure Start Time/Medication Administration: 04/26/2025 8:49 AM Procedure End Time: 04/26/2025 8:52 AM Patient location during procedure: OR Timeout Performed Pre-procedure: timeout performed Consent Obtained: Yes Patient identity confirmed: arm band and patient Staffing Performed by: SUPERVISOR PAINT DEPARTMENT Indications and Patient Condition Indications for airway management: anesthesia Preoxygenated: yes anesthesia circuit Method: sleep Difficult Mask: No Airway Accessory: oral airway Final Airway Details Final airway type: endotracheal airway Final Endotracheal Airway: ETT Cuffed: yes Successful intubation technique: video laryngoscopy Devices used: Rizo and intubating stylet Endotracheal tube insertion site: oral Blade: Camryn Blade size: #3 ETT size (mm): 7.0 Measured from: lips Measurement (cm): 21 Placement verified by: chest auscultation and capnometry Cormack-Lehane Classification: grade I - full view of glottis Number of attempts at approach: 1 Airway not difficult SIGNATURE: Mary Willard APRN.SUPERVISOR PAINT DEPARTMENT PATIENT NAME: Macey Campbell DATE: April 26, 2025 TIME: 9:10 AM CSN: [id number] [facility] 04-14-2025 Instructions Candy Alas APRN.FRANCHISE DEVELOPMENT MANAGER - 04/14/2025 11:22 AM EDT Images from the original note were not included. [facility] PATIENT PREOPERATIVE INSTRUCTIONS Dar Verma MD has scheduled you for your procedure at this surgery center: [facility]: [phone] --[address] [place] [address]. Please read below carefully for your personalized instructions. Dietary Restrictions: - No solid food after midnight. - You may have 12 ounces of clear liquids (water, clear juices such as apple juice or gatorade, carbonated beverages, clear tea, black coffee, jello) until 2 hours before scheduled arrival at facility. Medications: Unless instructed differently below, stay on all of your medications until your surgery. If you start any new medications after today's visit, please contact your surgeon. Pre-Surgery Med Instructions Medication Instructions omeprazole (PRILOSEC) 40 mg capsule If you normally take this medication in the morning, take the morning of surgery. gabapentin (NEURONTIN) 300 mg capsule If you normally take this medication in the morning, take the morning of surgery. rizatriptan (MAXALT ARMORING MACHINE OPERATOR) 10 mg disintegrating tablet If you normally take this medication in the morning, take the morning of surgery. metFORMIN ER (GLUCOPHAGE XR) 500 mg 24 hr tablet Do not take the day of surgery spironolactone (ALDACTONE) 50 mg tablet Do not take the day of surgery rosuvastatin (CRESTOR) 5 mg tablet If you normally take this medication in the morning, take the morning of surgery. amitriptyline (ELAVIL) 10 mg tablet If you normally take this medication in the morning, take the morning of surgery. estradiol (ESTRACE) 1 mg tablet If you start any new medications after today's visit, please contact the surgeon's office. If you are currently using a [id number] injectable or oral medication for diabetes or weight loss such as Dulaglutide (Trulicity), Exenatide (Byetta, Bydureon), Liraglutide (Victoza, Saxenda), Semaglutide (Ozempic, Wegovy, Rybelsus), or Tirzepatide (Mounjaro), the medicine should be stopped at least 7 days before surgery. These medicines can cause food to remain in your stomach for a very long time and increase the risks from surgery and anesthesia. Not stopping the medication for a long enough time may result in your surgery being rescheduled. Blood Thinning Medications: - Stop NSAIDS (Ibuprofen, Advil, Aleve, Motrin, Celebrex, Mobic, etc.) 7 days before surgery, as directed by your surgeon. - Stop Aspirin 7 days before surgery, as directed by your surgeon. - Stop ALL herbal and dietary supplements 7 days before surgery. - You may take Tylenol (Acetaminophen) or any of your pain medications that do not contain aspirin or NSAIDS as needed. Important Reminders: - Candy, mints, and tobacco products are NOT permitted the morning of surgery. - Hearing aids, dentures and glasses may be worn the morning of surgery. - NO jewelry, body piercings, makeup, hairpins or contacts are to be worn the day of surgery. If you develop symptoms such as a fever, cold, or flu, or have other changes to your health within TWO DAYS of scheduled surgery or the morning of surgery, please contact the surgery center above. Personal Belongings: -Please have photo ID and insurance cards. -If you do not have a copy of advance directives on file with us, please bring a copy with you on the day of surgery. - Leave ALL valuables and money at home or with family members. - Please bring high-quality footwear, such as sneakers, to the hospital for ambulating post-surgery. For Outpatient Procedures: - YOU MUST HAVE A RESPONSIBLE TELEVISION MAINTENANCE WORKER TAKE YOU HOME. A APARTMENT LEASING AGENT OR MUSIC THERAPY TEACHER CANNOT BE MADE A RESPONSIBLE TELEVISION MAINTENANCE WORKER. - We recommend that a responsible person stays with you overnight to take care of you. - You cannot stay in a hotel alone after outpatient surgery. You will not be permitted to have your surgery, if you do not have someone to take care of you. Arrival Time for Surgery: - The Surgery Center or hospital where you are having surgery will call the afternoon before surgery (or Thursday for Thursday surgery) with a scheduled arrival time. - If you have not heard by 4 pm, please contact the surgery center above. Please be aware that emergency situations arise, which may delay or change your surgical time. If this happens, we will notify you as soon as possible and regret any inconvenience. If you already have an Advance Directive, please fax a copy to [phone] or email to for it to be added to your chart. If you do not have an Advance Directive, you can find the appropriate form and more information at [email or web address]. We recommend that you complete the Advance Directive form found on the website and bring it with you the day of your surgery. It can be witnessed and scanned into your chart that day. Candy Alas APRN.ESSIE documented in this encounter [facility] 04-12-2025 Note HNO ID: [id number] Author: NACHO KESSLRE RN Service: ? Author Type: Registered Nurse Type: Progress Notes Filed: 04/12/2025 13:36 Note Text: Pt Id By Name AND . Pt consented to conversing via phone. HDAI - Completed Consent - Completed Last Enc Note with Dr. OSBORNE on 04/10/2025 M25.852 - Femoroacetabular impingement of left hip Imaging: - X-ray of the left hip: Flattened femoral head morphology with a bony prominence contacting the acetabular labrum. - MRI of the left hip: Sagittal view demonstrates labrum tear with chondrolabral separation. Tests: - Intra-articular injection of the left hip: Provided short-term pain relief; utilized partly for diagnostic confirmation. 1. Femoroacetabular impingement of left hip (M25.852) - Patient presents with groin pain exacerbated by prolonged sitting, car rides, squatting, and stair climbing. Physical examination reveals stiffness and pain on movement of the left hip. - X-ray demonstrates a flattened morphology with a bump on the femoral head, consistent with femoroacetabular impingement (MICHAEL). - MRI shows fraying and degeneration of cartilage but no discrete labral tear; however, based on the hip morphology, a labral tear is highly suspected. - Discussed treatment options including previous physical therapy and diagnostic/therapeutic injection, which provided only temporary relief. - Recommended hip arthroscopy to repair the labrum and recontour the femoral head to prevent further impingement. - Explained surgical procedure, including outpatient status, use of a hip brace and crutches for 3 weeks, and gradual improvement expected over 6 weeks. - Discussed potential for 80% pain reduction post-surgery, with average pain scores decreasing from 8/10 to 2-2.5/10 over 1-2 years. - Advised on the negative impact of tobacco use on surgical outcomes and pain scores. 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 Pt agreed to surgery date with Dr. Dar Veram on 04/26/2025 at [facility]. Pt confirmed surgery will be for left Hip . Surgery checklist and perioperative planning HX OF VTE Venous thromboembolism: NO FHX family history OF VTE : NO Currently on anticoagulation: NO Have you or Any Blood Relative ever experienced a Life Threatening Reaction to Anesthesia: NO Patient confirmed home assistance post op: YES Crutches / Walker : YES Pt confirmed - will bring on Day of Surgery Hip scope: YES Pre-Op PT appt for teaching hip scope post op stretches: NEEDS PT location for post op: [place] HX OF MRSA: NO HX OF ANEMIA: NO HX OF DM: NO A1C: n/a ALLERGY TO ASPIRIN: NO ALLERGY TO NSAIDS: NO ALLERGY TO PCN: NO ALLERGY TO METAL: NO Reviewed with Pt the following: Dr. Verma - will do his best to speak to each and every patient as they wake up post op. If the patient has not fully woken up from the anesthesia prior to the start of the next surgical case, there may be times when Dr. Verma is not able to speak to the patient. Regardless, After your procedure, Dr. Verma will speak to your family member/transport person post operatively. He will describe what was done and answer any questions. We perform multiple surgeries each day so unfortunately Dr. Verma may not get a chance to speak to you directly. CHG wipes or CHG soap - patient received these today with instructions Surgery booklet with information to contact [facility] if they do not hear from them in 14 days prior to surgery The patient was offered a surgery/procedure at a [facility] facility. The surgeon/proceduralist and patient have discussed in detail the risk of exposure to and/or potential harm posed by the COVID-19 virus with having a surgery/procedure at this time versus the risk of delaying the surgery/procedure. It is not possible to know either the risk of delaying the surgery or procedure or chance of getting an infection with perfect accuracy, but a joint decision was made between the patient and the surgeon to proceed at this time with the scheduled surgery/procedure as indicated on the consent form. As a result of the October 2021 [facility] decision to cancel non-essential surgeries at our [place] facilities, unless special criteria are met, I have reviewed the clinical record for this patient and have determined that the scheduled procedure meets the criteria to go forward and should be scheduled because of the presence of severe symptoms and/or risk of rapid disease progression. Spoke with pt for 15 mins. [facility] 04-12-2025 History of Presen t illness Narrative Pt Id By Name & . Pt consented to conversing via phone. HDAI - Completed Consent - Completed Last Enc Note with Dr. OSBORNE on 04/10/2025 M25.852 - Femoroacetabular impingement of left hip Imaging: - X-ray of the left hip: Flattened femoral head morphology with a bony prominence contacting the acetabular labrum. - MRI of the left hip: Sagittal view demonstrates labrum tear with chondrolabral separation. Tests: - Intra-articular injection of the left hip: Provided short-term pain relief; utilized partly for diagnostic confirmation. 1. Femoroacetabular impingement of left hip (M25.852) - Patient presents with groin pain exacerbated by prolonged sitting, car rides, squatting, and stair climbing. Physical examination reveals stiffness and pain on movement of the left hip. - X-ray demonstrates a flattened morphology with a bump on the femoral head, consistent with femoroacetabular impingement (MICHAEL). - MRI shows fraying and degeneration of cartilage but no discrete labral tear; however, based on the hip morphology, a labral tear is highly suspected. - Discussed treatment options including previous physical therapy and diagnostic/therapeutic injection, which provided only temporary relief. - Recommended hip arthroscopy to repair the labrum and recontour the femoral head to prevent further impingement. - Explained surgical procedure, including outpatient status, use of a hip brace and crutches for 3 weeks, and gradual improvement expected over 6 weeks. - Discussed potential for 80% pain reduction post-surgery, with average pain scores decreasing from 8/10 to 2-2.5/10 over 1-2 years. - Advised on the negative impact of tobacco use on surgical outcomes and pain scores. 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 Pt agreed to surgery date with Dr. Dar Verma on 04/26/2025 at [facility]. Pt confirmed surgery will be for left Hip . Surgery checklist and perioperative planning HX OF VTE Venous thromboembolism: NO FHX family history OF VTE : NO Currently on anticoagulation: NO Have you or Any Blood Relative ever experienced a Life Threatening Reaction to Anesthesia: NO Patient confirmed home assistance post op: YES Crutches / Walker : YES Pt confirmed - will bring on Day of Surgery Hip scope: YES Pre-Op PT appt for teaching hip scope post op stretches: NEEDS PT location for post op: [place] HX OF MRSA: NO HX OF ANEMIA: NO HX OF DM: NO A1C: n/a ALLERGY TO ASPIRIN: NO ALLERGY TO NSAIDS: NO ALLERGY TO PCN: NO ALLERGY TO METAL: NO Reviewed with Pt the following: Dr. Verma - will do his best to speak to each and every patient as they wake up post op. If the patient has not fully woken up from the anesthesia prior to the start of the next surgical case, there may be times when Dr. Verma is not able to speak to the patient. Regardless, After your procedure, Dr. Verma will speak to your family member/transport person post operatively. He will describe what was done and answer any questions. We perform multiple surgeries each day so unfortunately Dr. Verma may not get a chance to speak to you directly. CHG wipes or CHG soap - patient received these today with instructions Surgery booklet with information to contact [facility] if they do not hear from them in 14 days prior to surgery The patient was offered a surgery/procedure at a [facility] facility. The surgeon/proceduralist and patient have discussed in detail the risk of exposure to and/or potential harm posed by the COVID-19 virus with having a surgery/procedure at this time versus the risk of delaying the surgery/procedure. It is not possible to know either the risk of delaying the surgery or procedure or chance of getting an infection with perfect accuracy, but a joint decision was made between the patient and the surgeon to proceed at this time with the scheduled surgery/procedure as indicated on the consent form. As a result of the October 2021 [facility] decision to cancel non-essential surgeries at our [place] facilities, unless special criteria are met, I have reviewed the clinical record for this patient and have determined that the scheduled procedure meets the criteria to go forward and should be scheduled because of the presence of severe symptoms and/or risk of rapid disease progression. Spoke with pt for 15 mins. documented in this encounter [facility] 04-12-2025 History and physical note PREANESTHESIA CONSULT CLINIC TELEHEALTH VISIT Patient has been identified by name and date of : Yes This is a virtual visit using [employer] Zoom Video Visit. It require patient-provider interaction for the medical decision making as documented below. Reason for contact: [facility] visit Accompanied by: Self I have communicated my name and active licensure. The patient's identity and physical location were verified at the time of this visit. Either the patient or their legal in store representative has been informed of the risks and benefits of -- and alternatives to -- treatment through a remote evaluation and consents to proceed with the evaluation remotely. Scheduled Surgery: LEFT Hip Anterior Labral Repair, with possible Acetabuloplasty, and possible Femoroplasty, Subjective CHIEF COMPLAINT: No chief complaint on file. I have communicated my name and active licensure. The patient's identity and physical location were verified at the time of this visit. Either the patient or their legal in store representative has been informed of the risks and benefits of -- and alternatives to -- treatment through a remote evaluation and consents to proceed with the evaluation remotely. HPI: This is a 34 year old female with left hip pain ACTIVE PROBLEM LIST Gastroenteritis Abdominal Pain, Acute, Right Upper Quadrant Tachycardia Menstrual Irregularity Infertility Associated With Anovulation Pelvic Pain in Female Gerd Without Esophagitis Obesity, Class I, Bmi 30-34.9 Tobacco Use Disorder Hyperglycemia Mixed Hyperlipidemia Acute Back Pain With Sciatica, Left Pain of Left Hip Chronic Migraine With Aura Without Status Migrainosus, Not Intractable PAST MEDICAL HISTORY Diagnosis Date GERD without esophagitis 12/31/2021 Obesity, Class I, BMI 30-34.9 12/31/2021 PCOS (polycystic ovarian syndrome) Tobacco use disorder 12/31/2021 PAST SURGICAL HISTORY Procedure Laterality Date COLONOSCOPY SCREENING 02/08/2024 EGD W/O BRSH SPEC VARICIES INJ 02/08/2024 LAPS ABD PRTM&OMENTUM DX W/WO SPEC BR/WA SPX 2014 Laparoscopy - for r/o endometriosis, foung to have a cyst PT ED OBSTETRICS & GYNECOLOGY N/A 12/2019 laparoscopic hysterectomy - for endometriosis - Dr. Shelley REMOVAL OF OVARY(S) Right 10/24/2020 ovarian torsion REMOVAL OF OVARY(S) Left 12/2020 Dr Jo SALPINGECTOMY Right 12/27/2016 laparoscopic Right salpingectomy- ECTOPIC FAMILY HISTORY Problem Relation Age of Onset Cervical Cancer Mother other (breast cyst [Other]) Mother Hyperlipidemia Father Hypertension Father other (sepsis) Father (after ruptured appe and another surgical complication where bowel was perforated during alexander). No Known Problems Sister No Known Problems Sister ADD/ADHD Brother Depression Brother ADD/ADHD Brother Stroke Maternal Grandmother No Known Problems Maternal Grandfather Hypertension Paternal Grandmother Hyperlipidemia Paternal Grandmother Skin Cancer Paternal Grandmother other (ewings sarcoma) Paternal Grandmother Hypertension Paternal Grandfather Heart Attack Paternal Grandfather Diabetes Paternal Grandfather Hyperlipidemia Paternal Grandfather COPD Paternal Grandfather ADD/ADHD Son Social History Tobacco Use Smoking status: Every Day Current packs/day: 0.50 Average packs/day: 0.5 packs/day for 15.0 years (7.5 ttl pk-yrs) Types: Cigarettes Smokeless tobacco: Never Vaping Use Vaping status: Never Used Substance Use Topics Alcohol use: Yes Alcohol/week: 1.0 standard drink of alcohol Types: 1 Glasses of Wine (5oz) per week Comment: Social Drug use: No ALLERGIES Allergen Reactions Cleocin [Clindamyci* Rash Sulfa (Sulfonamide * Rash MEDICATIONS: Current Outpatient Medications Medication Sig omeprazole (PRILOSEC) 40 mg capsule Take 1 capsule by mouth once daily. gabapentin (NEURONTIN) 300 mg capsule Take 1 capsule by mouth three times a day for 180 days. rizatriptan (MAXALT ARMORING MACHINE OPERATOR) 10 mg disintegrating tablet Take 1 tablet (10 mg) by mouth as needed. May repeat in 2 hours if needed metFORMIN ER (GLUCOPHAGE XR) 500 mg 24 hr tablet Take 1 tablet by mouth daily with breakfast. spironolactone (ALDACTONE) 50 mg tablet Take 1 tablet by mouth two times a day. rosuvastatin (CRESTOR) 5 mg tablet Take 2 tablets by mouth daily at bedtime. amitriptyline (ELAVIL) 10 mg tablet Take 1 tablet by mouth daily at bedtime. estradiol (ESTRACE) 1 mg tablet No current facility-administered medications for this visit. REVIEW OF SYSTEMS: Pain Assessment: General: No weight loss, malaise or fevers. Neuro: Postive for Headaches Respiratory: No history of current cough or dyspnea, or pneumonia in the past 6 weeks. No history of respiratory/pulmonary symptoms or problems. 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 : Denies, Patient's last menstrual period was 08/04/2016. Endocrine: predia Hematology: No history of bleeding or clotting disorder. Pt is not taking anti-coagulation or platelet medications. No history of hematological symptoms or problems. Oncology: No history of CA metastasis, chemo within 30 days, or radiotherapy within 90 days. Has not lost 10% of body wt in 6 months. No history of oncological symptoms or problems. Psych: No history of psychiatric symptoms or problems. Musculoskeletal: Negative for joint pain or swelling, back pain or muscle pain. Skin: Negative for lesions, rash and itching. Objective PHYSICAL EXAM: LMP 08/04/2016 VIDEO EXAM: (if completed, performed via video enabled technology) GENERAL: alert and appropriate, in no distress, well-hydrated, well nourished, and happy, smiling, interactive SKIN: no rash noted HEAD: normocephalic, no abnormality or lesion noted OROPHARYNX: moist mucus membranes NECK: no self-reported cervical adenopathy RESPIRATORY: breathing non-labored CHEST: equal chest rise with normal respiratory effort HEART: No JVD, no cp or heart palpitations. Diagnostic tests reviewed for today's visit: Lab Value Units Date High Low HB 14.0 g/dL 01/24/2025 15.5 11.5 HCT 42.0 % 01/24/2025 46.0 36.0 WBC 12.58 k/uL 01/24/2025 11.00 3.70 PLT 359 k/uL 01/24/2025 400 150 NA 140 mmol/L 12/27/2024 144 136 K 4.3 mmol/L 12/27/2024 5.1 3.7 GLUC 100 mg/dL 12/27/2024 99 74 BUN 12 mg/dL 12/27/2024 21 7 CREAT 0.62 mg/dL 12/27/2024 0.96 0.58 PTSEC No results within date range. INR No results within date range. APTT No results within date range. ALT 20 U/L 12/27/2024 38 7 AST 14 U/L 12/27/2024 35 13 TBILI 0.3 mg/dL 12/27/2024 1.3 0.2 TSH No results within date range. Lab Value Units Date High Low HCGQT No results within date range. UHCG No results within date range. HCG, BODY* No results within date range. Lab Value Units Date High Low ABORHD No results within date range. ABSCREEN No results within date range. Hemoglobin A1C (%) Date Value 12/27/2024 5.8 08/25/2023 6.0 04/15/2023 5.8 04/15/2022 5.9 01/03/2022 5.8 03/14/2024 Stress ECG Conclusion: Conclusion: Normal ECHO: 02/09/2024 Impression CONCLUSIONS: - Technically difficult exam due to body habitus and lung interference. - Exam indication: Abnormal ECG - The left ventricle is normal in size. Left ventricular systolic function is normal. EF = 58 5% (2D biplane) Normal left ventricular diastolic function. - The right ventricle is normal in size. Right ventricular systolic function is normal. - There are no significant valvular abnormalities. - The patient has not had a prior CC echocardiographic exam for comparison. EK01/25/2024 Diagnosis: NORMAL SINUS RHYTHM POSSIBLE LEFT ATRIAL ENLARGEMENT BORDERLINE ECG Impression/Recommendations ASSESSMENT: Mixed hyperlipidemia Assessment: on daily crestor GERD without esophagitis Assessment: on daily prilosec. Chronic migraine with aura without status migrainosus, not intractable Assessment: maxalt PRN, not needed recently. METS: Do heavy work around the house, such as scrubbing floors, lifting or moving heavy furniture (8.00 METs) ASA Class: 1 ANESTHESIA FINDINGS: Intubation History: No prior intubation Significant Anesthesia Considerations: Postop nausea/vomiting Airway Exam: General: Normal appearance Mallampati Score is CLASS I ULBT: Class I - Lower incisors can bite the upper lip above the stewart line Neck: Normal appearance and function, Distance from hyoid to mentum during neck extension is at least 3 finger breaths Mouth: Normal tongue size Dentition: Intact Airway History: No abnormal airway history STOP BANG Score: Criteria: None Score = 0 PLAN: This patient is optimally prepared for surgery pending DOS exam. CONSULTS: Patient does not require consults for optimization at this time. The Following Tests/Procedures Have Been Initiated: Labs from 01/24/25 and 12/27/24 Planned Anesthetic: Per anesthesia choice Instructions Given to Patient: Patient given verbal instructions and voices comprehension and compliance. Copy sent electronically via My Chart, email, or mobile device. This is a virtual visit. It required patient-provider interaction for the medical decision making as documented above. SIGNATURE: Candy Alas APRN.CNP PATIENT NAME: Macey Campbell DATE: 04/12/2025 TIME: 730am PAGER/CONTACT #: [facility] 04-12-2025 History and physical note PREANESTHESIA CONSULT CLINIC TELEHEALTH VISIT Patient has been identified by name and date of : Yes This is a virtual visit using [employer] Video Visit. It require patient-provider interaction for the medical decision making as documented below. Reason for contact: [facility] visit Accompanied by: Self I have communicated my name and active licensure. The patient's identity and physical location were verified at the time of this visit. Either the patient or their legal in store representative has been informed of the risks and benefits of -- and alternatives to -- treatment through a remote evaluation and consents to proceed with the evaluation remotely. Scheduled Surgery: LEFT Hip Anterior Labral Repair, with possible Acetabuloplasty, and possible Femoroplasty, Subjective CHIEF COMPLAINT: No chief complaint on file. I have communicated my name and active licensure. The patient's identity and physical location were verified at the time of this visit. Either the patient or their legal in store representative has been informed of the risks and benefits of -- and alternatives to -- treatment through a remote evaluation and consents to proceed with the evaluation remotely. HPI: This is a 34 year old female with left hip pain ACTIVE PROBLEM LIST Gastroenteritis Abdominal Pain, Acute, Right Upper Quadrant Tachycardia Menstrual Irregularity Infertility Associated With Anovulation Pelvic Pain in Female Gerd Without Esophagitis Obesity, Class I, Bmi 30-34.9 Tobacco Use Disorder Hyperglycemia Mixed Hyperlipidemia Acute Back Pain With Sciatica, Left Pain of Left Hip Chronic Migraine With Aura Without Status Migrainosus, Not Intractable PAST MEDICAL HISTORY Diagnosis Date GERD without esophagitis 12/31/2021 Obesity, Class I, BMI 30-34.9 12/31/2021 PCOS (polycystic ovarian syndrome) Tobacco use disorder 12/31/2021 PAST SURGICAL HISTORY Procedure Laterality Date COLONOSCOPY SCREENING 02/08/2024 EGD W/O BRSH SPEC VARICIES INJ 02/08/2024 LAPS ABD PRTM&OMENTUM DX W/WO SPEC BR/WA SPX 2014 Laparoscopy - for r/o endometriosis, foung to have a cyst PT ED OBSTETRICS & GYNECOLOGY N/A 12/2019 laparoscopic hysterectomy - for endometriosis - Dr. Shelley REMOVAL OF OVARY(S) Right 10/24/2020 ovarian torsion REMOVAL OF OVARY(S) Left 12/2020 Dr Sandro SALPINGECTOMY Right 12/27/2016 laparoscopic Right salpingectomy- ECTOPIC FAMILY HISTORY Problem Relation Age of Onset Cervical Cancer Mother other (breast cyst [Other]) Mother Hyperlipidemia Father Hypertension Father other (sepsis) Father (after ruptured appe and another surgical complication where bowel was perforated during [place]). No Known Problems Sister No Known Problems Sister ADD/ADHD Brother Depression Brother ADD/ADHD Brother Stroke Maternal Grandmother No Known Problems Maternal Grandfather Hypertension Paternal Grandmother Hyperlipidemia Paternal Grandmother Skin Cancer Paternal Grandmother other (ewings sarcoma) Paternal Grandmother Hypertension Paternal Grandfather Heart Attack Paternal Grandfather Diabetes Paternal Grandfather Hyperlipidemia Paternal Grandfather COPD Paternal Grandfather ADD/ADHD Son Social History Tobacco Use Smoking status: Every Day Current packs/day: 0.50 Average packs/day: 0.5 packs/day for 15.0 years (7.5 ttl pk-yrs) Types: Cigarettes Smokeless tobacco: Never Vaping Use Vaping status: Never Used Substance Use Topics Alcohol use: Yes Alcohol/week: 1.0 standard drink of alcohol Types: 1 Glasses of Wine (5oz) per week Comment: Social Drug use: No ALLERGIES Allergen Reactions Cleocin [Clindamyci* Rash Sulfa (Sulfonamide * Rash MEDICATIONS: Current Outpatient Medications Medication Sig omeprazole (PRILOSEC) 40 mg capsule Take 1 capsule by mouth once daily. gabapentin (NEURONTIN) 300 mg capsule Take 1 capsule by mouth three times a day for 180 days. rizatriptan (MAXALT ARMORING MACHINE OPERATOR) 10 mg disintegrating tablet Take 1 tablet (10 mg) by mouth as needed. May repeat in 2 hours if needed metFORMIN ER (GLUCOPHAGE XR) 500 mg 24 hr tablet Take 1 tablet by mouth daily with breakfast. spironolactone (ALDACTONE) 50 mg tablet Take 1 tablet by mouth two times a day. rosuvastatin (CRESTOR) 5 mg tablet Take 2 tablets by mouth daily at bedtime. amitriptyline (ELAVIL) 10 mg tablet Take 1 tablet by mouth daily at bedtime. estradiol (ESTRACE) 1 mg tablet No current facility-administered medications for this visit. REVIEW OF SYSTEMS: Pain Assessment: General: No weight loss, malaise or fevers. Neuro: Postive for Headaches Respiratory: No history of current cough or dyspnea, or pneumonia in the past 6 weeks. No history of respiratory/pulmonary symptoms or problems. 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 : Denies, Patient's last menstrual period was 08/04/2016. Endocrine: predia Hematology: No history of bleeding or clotting disorder. Pt is not taking anti-coagulation or platelet medications. No history of hematological symptoms or problems. Oncology: No history of CA metastasis, chemo within 30 days, or radiotherapy within 90 days. Has not lost 10% of body wt in 6 months. No history of oncological symptoms or problems. Psych: No history of psychiatric symptoms or problems. Musculoskeletal: Negative for joint pain or swelling, back pain or muscle pain. Skin: Negative for lesions, rash and itching. Objective PHYSICAL EXAM: LMP 08/04/2016 VIDEO EXAM: (if completed, performed via video enabled technology) GENERAL: alert and appropriate, in no distress, well-hydrated, well nourished, and happy, smiling, interactive SKIN: no rash noted HEAD: normocephalic, no abnormality or lesion noted OROPHARYNX: moist mucus membranes NECK: no self-reported cervical adenopathy RESPIRATORY: breathing non-labored CHEST: equal chest rise with normal respiratory effort HEART: No JVD, no cp or heart palpitations. Diagnostic tests reviewed for today's visit: Lab Value Units Date High Low HB 14.0 g/dL 01/24/2025 15.5 11.5 HCT 42.0 % 01/24/2025 46.0 36.0 WBC 12.58 k/uL 01/24/2025 11.00 3.70 PLT 359 k/uL 01/24/2025 400 150 NA 140 mmol/L 12/27/2024 144 136 K 4.3 mmol/L 12/27/2024 5.1 3.7 GLUC 100 mg/dL 12/27/2024 99 74 BUN 12 mg/dL 12/27/2024 21 7 CREAT 0.62 mg/dL 12/27/2024 0.96 0.58 PTSEC No results within date range. INR No results within date range. APTT No results within date range. ALT 20 U/L 12/27/2024 38 7 AST 14 U/L 12/27/2024 35 13 TBILI 0.3 mg/dL 12/27/2024 1.3 0.2 TSH No results within date range. Lab Value Units Date High Low HCGQT No results within date range. UHCG No results within date range. HCG, BODY* No results within date range. Lab Value Units Date High Low ABORHD No results within date range. ABSCREEN No results within date range. Hemoglobin A1C (%) Date Value 12/27/2024 5.8 08/25/2023 6.0 04/15/2023 5.8 04/15/2022 5.9 01/03/2022 5.8 03/14/2024 Stress ECG Conclusion: Conclusion: Normal ECHO: 02/09/2024 Impression CONCLUSIONS: - Technically difficult exam due to body habitus and lung interference. - Exam indication: Abnormal ECG - The left ventricle is normal in size. Left ventricular systolic function is normal. EF = 58 5% (2D biplane) Normal left ventricular diastolic function. - The right ventricle is normal in size. Right ventricular systolic function is normal. - There are no significant valvular abnormalities. - The patient has not had a prior CC echocardiographic exam for comparison. EK01/25/2024 Diagnosis: NORMAL SINUS RHYTHM POSSIBLE LEFT ATRIAL ENLARGEMENT BORDERLINE ECG Impression/Recommendations ASSESSMENT: Mixed hyperlipidemia Assessment: on daily crestor GERD without esophagitis Assessment: on daily prilosec. Chronic migraine with aura without status migrainosus, not intractable Assessment: maxalt PRN, not needed recently. METS: Do heavy work around the house, such as scrubbing floors, lifting or moving heavy furniture (8.00 METs) ASA Class: 1 ANESTHESIA FINDINGS: Intubation History: No prior intubation Significant Anesthesia Considerations: Postop nausea/vomiting Airway Exam: General: Normal appearance Mallampati Score is CLASS I ULBT: Class I - Lower incisors can bite the upper lip above the stewart line Neck: Normal appearance and function, Distance from hyoid to mentum during neck extension is at least 3 finger breaths Mouth: Normal tongue size Dentition: Intact Airway History: No abnormal airway history STOP BANG Score: Criteria: None Score = 0 PLAN: This patient is optimally prepared for surgery pending DOS exam. CONSULTS: Patient does not require consults for optimization at this time. The Following Tests/Procedures Have Been Initiated: Labs from 01/24/25 and 12/27/24 Planned Anesthetic: Per anesthesia choice Instructions Given to Patient: Patient given verbal instructions and voices comprehension and compliance. Copy sent electronically via My Chart, email, or mobile device. This is a virtual visit. It required patient-provider interaction for the medical decision making as documented above. SIGNATURE: Candy Alas APRN.CNP PATIENT NAME: Macey Campbell DATE: 04/12/2025 TIME: 730am PAGER/CONTACT #: documented in this encounter [facility] 04-10-2025 Note HNO ID: [id number] Author: NACHO KESSLER RN Service: ? Author Type: Registered Nurse Type: Progress Notes Filed: 04/10/2025 09:23 Note Text: /Pt Id By Name AND . Pt consented to conversing via phone. HDAI - Completed Consent - Completed Last Enc Note with Dr. OSBORNE on 04/10/2025 Responsible Practitioner performing the Procedure/treatment/test: Dar Verma MD Procedure/treatment/test: Left hip arthroscopy with labrum repair, acetabuloplasty, femoroplasty. Procedures as indicated. Imaging: - X-ray of the left hip: Flattened femoral head morphology with a bony prominence contacting the acetabular labrum. - MRI of the left hip: Sagittal view demonstrates labrum tear with chondrolabral separation. Tests: - Intra-articular injection of the left hip: Provided short-term pain relief; utilized partly for diagnostic confirmation. 1. Femoroacetabular impingement of left hip (M25.852) - Patient presents with groin pain exacerbated by prolonged sitting, car rides, squatting, and stair climbing. Physical examination reveals stiffness and pain on movement of the left hip. - X-ray demonstrates a flattened morphology with a bump on the femoral head, consistent with femoroacetabular impingement (MICHAEL). - MRI shows fraying and degeneration of cartilage but no discrete labral tear; however, based on the hip morphology, a labral tear is highly suspected. - Discussed treatment options including previous physical therapy and diagnostic/therapeutic injection, which provided only temporary relief. - Recommended hip arthroscopy to repair the labrum and recontour the femoral head to prevent further impingement. - Explained surgical procedure, including outpatient status, use of a hip brace and crutches for 3 weeks, and gradual improvement expected over 6 weeks. - Discussed potential for 80% pain reduction post-surgery, with average pain scores decreasing from 8/10 to 2-2.5/10 over 1-2 years. - Advised on the negative impact of tobacco use on surgical outcomes and pain scores. 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 Pt agreed to surgery date with Dr. Dar Verma on 04/10/2025 at [facility]. Pt confirmed surgery will be for left Hip . Surgery checklist and perioperative planning HX OF VTE Venous thromboembolism: NO FHX family history OF VTE : NO Currently on anticoagulation: NO Have you or Any Blood Relative ever experienced a Life Threatening Reaction to Anesthesia: NO Patient confirmed home assistance post op: YES Crutches / Walker : YES Pt confirmed - will bring on Day of Surgery Hip scope: YES Pre-Op PT appt for teaching hip scope post op stretches: YES PT location for post op: [place] HX OF MRSA: NO HX OF ANEMIA: NO HX OF DM: YES A1C: 5.8 on 12/27/2024 ALLERGY TO ASPIRIN: NO ALLERGY TO NSAIDS: NO ALLERGY TO PCN: NO ALLERGY TO METAL: NO Reviewed with Pt the following: Dr. Verma - will do his best to speak to each and every patient as they wake up post op. If the patient has not fully woken up from the anesthesia prior to the start of the next surgical case, there may be times when Dr. Verma is not able to speak to the patient. Regardless, After your procedure, Dr. Verma will speak to your family member/transport person post operatively. He will describe what was done and answer any questions. We perform multiple surgeries each day so unfortunately Dr. Verma may not get a chance to speak to you directly. CHG wipes or CHG soap - patient received these today with instructions Surgery booklet with information to contact [facility] if they do not hear from them in 14 days prior to surgery The patient was offered a surgery/procedure at a [facility] facility. The surgeon/proceduralist and patient have discussed in detail the risk of exposure to and/or potential harm posed by the COVID-19 virus with having a surgery/procedure at this time versus the risk of delaying the surgery/procedure. It is not possible to know either the risk of delaying the surgery or procedure or chance of getting an infection with perfect accuracy, but a joint decision was made between the patient and the surgeon to proceed at this time with the scheduled surgery/procedure as indicated on the consent form. As a result of the October 2021 [facility] decision to cancel non-essential surgeries at our [place] facilities, unless special criteria are met, I have reviewed the clinical record for this patient and have determined that the scheduled procedure meets the criteria to go forward and should be scheduled because of the presence of severe symptoms and/or risk of rapid disease progression. Spoke with pt for mins. [facility] 04-10-2025 History of Presen t illness Narrative /Pt Id By Name & . Pt consented to conversing via phone. HDAI - Completed Consent - Completed Last Enc Note with Dr. OSBORNE on 04/10/2025 Responsible Practitioner performing the Procedure/treatment/test: Dar Verma MD Procedure/treatment/test: Left hip arthroscopy with labrum repair, acetabuloplasty, femoroplasty. Procedures as indicated. Imaging: - X-ray of the left hip: Flattened femoral head morphology with a bony prominence contacting the acetabular labrum. - MRI of the left hip: Sagittal view demonstrates labrum tear with chondrolabral separation. Tests: - Intra-articular injection of the left hip: Provided short-term pain relief; utilized partly for diagnostic confirmation. 1. Femoroacetabular impingement of left hip (M25.852) - Patient presents with groin pain exacerbated by prolonged sitting, car rides, squatting, and stair climbing. Physical examination reveals stiffness and pain on movement of the left hip. - X-ray demonstrates a flattened morphology with a bump on the femoral head, consistent with femoroacetabular impingement (MICHAEL). - MRI shows fraying and degeneration of cartilage but no discrete labral tear; however, based on the hip morphology, a labral tear is highly suspected. - Discussed treatment options including previous physical therapy and diagnostic/therapeutic injection, which provided only temporary relief. - Recommended hip arthroscopy to repair the labrum and recontour the femoral head to prevent further impingement. - Explained surgical procedure, including outpatient status, use of a hip brace and crutches for 3 weeks, and gradual improvement expected over 6 weeks. - Discussed potential for 80% pain reduction post-surgery, with average pain scores decreasing from 8/10 to 2-2.5/10 over 1-2 years. - Advised on the negative impact of tobacco use on surgical outcomes and pain scores. 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 Pt agreed to surgery date with Dr. Dar Verma on 04/10/2025 at [facility]. Pt confirmed surgery will be for left Hip . Surgery checklist and perioperative planning HX OF VTE Venous thromboembolism: NO FHX family history OF VTE : NO Currently on anticoagulation: NO Have you or Any Blood Relative ever experienced a Life Threatening Reaction to Anesthesia: NO Patient confirmed home assistance post op: YES Crutches / Walker : YES Pt confirmed - will bring on Day of Surgery Hip scope: YES Pre-Op PT appt for teaching hip scope post op stretches: YES PT location for post op: [place] HX OF MRSA: NO HX OF ANEMIA: NO HX OF DM: YES A1C: 5.8 on 12/27/2024 ALLERGY TO ASPIRIN: NO ALLERGY TO NSAIDS: NO ALLERGY TO PCN: NO ALLERGY TO METAL: NO Reviewed with Pt the following: Dr. Verma - will do his best to speak to each and every patient as they wake up post op. If the patient has not fully woken up from the anesthesia prior to the start of the next surgical case, there may be times when Dr. Verma is not able to speak to the patient. Regardless, After your procedure, Dr. Verma will speak to your family member/transport person post operatively. He will describe what was done and answer any questions. We perform multiple surgeries each day so unfortunately Dr. Verma may not get a chance to speak to you directly. CHG wipes or CHG soap - patient received these today with instructions Surgery booklet with information to contact [facility] if they do not hear from them in 14 days prior to surgery The patient was offered a surgery/procedure at a [facility] facility. The surgeon/proceduralist and patient have discussed in detail the risk of exposure to and/or potential harm posed by the COVID-19 virus with having a surgery/procedure at this time versus the risk of delaying the surgery/procedure. It is not possible to know either the risk of delaying the surgery or procedure or chance of getting an infection with perfect accuracy, but a joint decision was made between the patient and the surgeon to proceed at this time with the scheduled surgery/procedure as indicated on the consent form. As a result of the October 2021 [facility] decision to cancel non-essential surgeries at our [place] facilities, unless special criteria are met, I have reviewed the clinical record for this patient and have determined that the scheduled procedure meets the criteria to go forward and should be scheduled because of the presence of severe symptoms and/or risk of rapid disease progression. Spoke with pt for mins. documented in this encounter [facility] 04-10-2025 Telephone encounter Note Patient seen today. Alexa Tobar [facility] Work Phone: 04-10-2025 Miscellaneous Notes Patient seen today. Alexa Tobar documented in this encounter [facility] 04-10-2025 Instructions Dar Verma MD - 04/10/2025 8:50 AM EDT - Expect a call from our nurse on Thursday or to schedule your outpatient hip arthroscopy. - Undergo outpatient hip arthroscopy (using a small camera) to repair your torn labrum and reshape the ball of your hip; you will go home the same day. - Wear the hip brace continuously for the first 3 weeks after surgery. - Use crutches for the first 3 weeks to limit weight bearing on your hip. - Avoid stretching your hip until about 6 weeks after surgery to protect the repair. - Plan for gradual improvement beginning around 6 weeks; you may experience stiffness, soreness, or clicking until healing progresses. - Limit activities to light walking and administrative tasks for about 6 weeks. - Avoid lifting from a squatting position or doing heavy lifting until about 12 weeks post-surgery. - Try to stop tobacco use before and during recovery to help maximize pain relief and healing. documented in this encounter [facility] 04-10-2025 Note HNO ID: [id number] Author: DAR VERMA MD Service: ? Author Type: Physician Type: Progress Notes Filed: 04/10/2025 08:50 Note Text: NEW ENCOUNTER This patient is being seen at the request of Maikel Hector PA-C and the progress note from this visit will be communicated via shared medical record Chief Complaint: left Hip pain History: Patient is a 34 year old female; she denies an acute injury event. 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 She has done extensive physical therapy for 10 months. She has had a diagnostic and therapeutic left hip joint injection. With her diagnostic injection she had complete 100% relief for the few hours that her local anesthesia was working. Her cortisone injection only partially worked for her. Smokes 1/2ppd Patient History PAST MEDICAL HISTORY Diagnosis Date GERD without esophagitis 12/31/2021 Obesity, Class I, BMI 30-34.9 12/31/2021 PCOS (polycystic ovarian syndrome) Tobacco use disorder 12/31/2021 PAST SURGICAL HISTORY Procedure Laterality Date COLONOSCOPY SCREENING 02/08/2024 EGD W/O BRSH SPEC VARICIES INJ 02/08/2024 LAPS ABD PRTMANDOMENTUM DX W/WO SPEC BR/WA SPX 2014 Laparoscopy - for r/o endometriosis, foung to have a cyst PT ED OBSTETRICS AND GYNECOLOGY N/A 12/2019 laparoscopic hysterectomy - for endometriosis - Dr. Shelley REMOVAL OF OVARY(S) Right 10/24/2020 ovarian torsion REMOVAL OF OVARY(S) Left 12/2020 Dr Jo SALPINGECTOMY Right 12/27/2016 laparoscopic Right salpingectomy- ECTOPIC omeprazole (PRILOSEC) 40 mg capsule Take 1 capsule by mouth once daily. gabapentin (NEURONTIN) 300 mg capsule Take 1 capsule by mouth three times a day for 180 days. rizatriptan (MAXALT ARMORING MACHINE OPERATOR) 10 mg disintegrating tablet Take 1 tablet (10 mg) by mouth as needed. May repeat in 2 hours if needed metFORMIN ER (GLUCOPHAGE XR) 500 mg 24 hr tablet Take 1 tablet by mouth daily with breakfast. spironolactone (ALDACTONE) 50 mg tablet Take 1 tablet by mouth two times a day. rosuvastatin (CRESTOR) 5 mg tablet Take 2 tablets by mouth daily at bedtime. amitriptyline (ELAVIL) 10 mg tablet Take 1 tablet by mouth daily at bedtime. estradiol (ESTRACE) 1 mg tablet Allergies: ALLERGIES Allergen Reactions Cleocin [Clindamyci* Rash Sulfa (Sulfonamide * Rash REVIEW OF SYSTEMS: Patient reports no change in past medical AND surgical history, medications, allergies, social history, family history and review of systems since visit dated . Allergies, medications, past surgical history and past medical history were reviewed per this encounter. Physical Examination: Region: Hip General Appearance: Appears healthy, well-nourished, no deformities. Neck/Spine/Station/Gait: Full pain free motion of the neck, no tenderness to palpation Left Exam: AROM: flexion 90 with pain above this. 10 degrees internal rotation, 60 degrees external rotation PROM: Same as active but with flexion to 100 degrees with significant pain Point Tenderness location: Tenderness along the flexor tendon. Nontender about the trochanter and glute Medius Swelling/Effusion: none Stability: normal Muscle Strength: 4+/5 hip flexor with pain, otherwise full strength Sensation:normal Reflexes:normal Skin: normal Pulses: normal Special Tests: Significant pain in the groin with dynamic labral shear. Milder pain with LIZETTE testing in the groin as well Right Exam: AROM: 120 flexion, IR 20, ER 65 PROM: same as active Point Tenderness location:none Swelling/Effusion: none Stability: normal Muscle Strength: normal Sensation:normal Reflexes:normal Skin: normal Pulses: normal Special Tests: None Images have been personally reviewed by me and discussed with patient. CAM morphology with signs of notching and auto-femoroplasty. Alpha angle 63. LCEA 37. MRI left hip reviewed showing an anterosuperior labral tear Assessment and Plan: 34-year-old female with left hip femoral acetabular impingement with large cam lesion. Clearly symptomatic from the hip on history and exam. Has had extensive nonoperative treatment with 10 months of therapy. Positive diagnostic injection response. Poor response to therapeutic injection. She would like to proceed with left hip arthroscopy with labral repair and cam and pincer lesion resection. [facility] STAFF PHYSICIAN NOTE OF PERSONAL INVOLVEMENT IN CARE Resident's history reviewed. I have personally examined the patient and repeat (more content not included)... [facility] 04-10-2025 History of Presen t illness Narrative NEW ENCOUNTER This patient is being seen at the request of Maikel Hector PA-C and the progress note from this visit will be communicated via shared medical record Chief Complaint: left Hip pain History: Patient is a 34 year old female; she denies an acute injury event. 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 She has done extensive physical therapy for 10 months. She has had a diagnostic and therapeutic left hip joint injection. With her diagnostic injection she had complete 100% relief for the few hours that her local anesthesia was working. Her cortisone injection only partially worked for her. Smokes 1/2ppd Patient History PAST MEDICAL HISTORY Diagnosis Date GERD without esophagitis 12/31/2021 Obesity, Class I, BMI 30-34.9 12/31/2021 PCOS (polycystic ovarian syndrome) Tobacco use disorder 12/31/2021 PAST SURGICAL HISTORY Procedure Laterality Date COLONOSCOPY SCREENING 02/08/2024 EGD W/O BRSH SPEC VARICIES INJ 02/08/2024 LAPS ABD PRTM&OMENTUM DX W/WO SPEC BR/WA SPX 2014 Laparoscopy - for r/o endometriosis, foung to have a cyst PT ED OBSTETRICS & GYNECOLOGY N/A 12/2019 laparoscopic hysterectomy - for endometriosis - Dr. Shelley REMOVAL OF OVARY(S) Right 10/24/2020 ovarian torsion REMOVAL OF OVARY(S) Left 12/2020 Dr Jo SALPINGECTOMY Right 12/27/2016 laparoscopic Right salpingectomy- ECTOPIC omeprazole (PRILOSEC) 40 mg capsule Take 1 capsule by mouth once daily. gabapentin (NEURONTIN) 300 mg capsule Take 1 capsule by mouth three times a day for 180 days. rizatriptan (MAXALT ARMORING MACHINE OPERATOR) 10 mg disintegrating tablet Take 1 tablet (10 mg) by mouth as needed. May repeat in 2 hours if needed metFORMIN ER (GLUCOPHAGE XR) 500 mg 24 hr tablet Take 1 tablet by mouth daily with breakfast. spironolactone (ALDACTONE) 50 mg tablet Take 1 tablet by mouth two times a day. rosuvastatin (CRESTOR) 5 mg tablet Take 2 tablets by mouth daily at bedtime. amitriptyline (ELAVIL) 10 mg tablet Take 1 tablet by mouth daily at bedtime. estradiol (ESTRACE) 1 mg tablet Allergies: ALLERGIES Allergen Reactions Cleocin [Clindamyci* Rash Sulfa (Sulfonamide * Rash REVIEW OF SYSTEMS: Patient reports no change in past medical & surgical history, medications, allergies, social history, family history and review of systems since visit dated . Allergies, medications, past surgical history and past medical history were reviewed per this encounter. Physical Examination: Region: Hip General Appearance: Appears healthy, well-nourished, no deformities. Neck/Spine/Station/Gait: Full pain free motion of the neck, no tenderness to palpation Left Exam: AROM: flexion 90 with pain above this. 10 degrees internal rotation, 60 degrees external rotation PROM: Same as active but with flexion to 100 degrees with significant pain Point Tenderness location: Tenderness along the flexor tendon. Nontender about the trochanter and glute Medius Swelling/Effusion: none Stability: normal Muscle Strength: 4+/5 hip flexor with pain, otherwise full strength Sensation:normal Reflexes:normal Skin: normal Pulses: normal Special Tests: Significant pain in the groin with dynamic labral shear. Milder pain with LIZETTE testing in the groin as well Right Exam: AROM: 120 flexion, IR 20, ER 65 PROM: same as active Point Tenderness location:none Swelling/Effusion: none Stability: normal Muscle Strength: normal Sensation:normal Reflexes:normal Skin: normal Pulses: normal Special Tests: None Images have been personally reviewed by me and discussed with patient. CAM morphology with signs of notching and auto-femoroplasty. Alpha angle 63. LCEA 37. MRI left hip reviewed showing an anterosuperior labral tear Assessment and Plan: 34-year-old female with left hip femoral acetabular impingement with large cam lesion. Clearly symptomatic from the hip on history and exam. Has had extensive nonoperative treatment with 10 months of therapy. Positive diagnostic injection response. Poor response to therapeutic injection. She would like to proceed with left hip arthroscopy with labral repair and cam and pincer lesion resection. [facility] STAFF PHYSICIAN NOTE OF PERSONAL INVOLVEMENT IN CARE Resident's history reviewed. I have personally examined the patient and repeated the chapa components of the exam/history. The assessment and plan were formulated and discussed with the resident/fellow. Please see my below dicatation for all pertinent highlights, including historical emphasis, clinical exam, tests ordered, and the plan moving forward. See resident's note for additional details. Regarding the plan, we have had an in depth discussion today regarding the current symptomatology and possible causes for the current symptoms. This discussion included a personal review of all the available imaging studies with the patient, pertinent lab values, and highlighting chapa findings. In Summary: Highlights: Agree with above. Labs: Imaging: - X-ray of the left hip: Flattened femoral head morphology with a bony prominence contacting the acetabular labrum. - MRI of the left hip: Sagittal view demonstrates labrum tear with chondrolabral separation. Tests: - Intra-articular injection of the left hip: Provided short-term pain relief; utilized partly for diagnostic confirmation. 1. Femoroacetabular impingement of left hip (M25.852) - Patient presents with groin pain exacerbated by prolonged sitting, car rides, squatting, and stair climbing. Physical examination reveals stiffness and pain on movement of the left hip. - X-ray demonstrates a flattened morphology with a bump on the femoral head, consistent with femoroacetabular impingement (MICHAEL). - MRI shows fraying and degeneration of cartilage but no discrete labral tear; however, based on the hip morphology, a labral tear is highly suspected. - Discussed treatment options including previous physical therapy and diagnostic/therapeutic injection, which provided only temporary relief. - Recommended hip arthroscopy to repair the labrum and recontour the femoral head to prevent further impingement. - Explained surgical procedure, including outpatient status, use of a hip brace and crutches for 3 weeks, and gradual improvement expected over 6 weeks. - Discussed potential for 80% pain reduction post-surgery, with average pain scores decreasing from 8/10 to 2-2.5/10 over 1-2 years. - Advised on the negative impact of tobacco use on surgical outcomes and pain scores. 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 ALL HIP SCOPES NEED TO HAVE DJO HIP BRACE SIZED PREOP AT [employer] OR [employer] (PLEASE MESSAGE HEATHER AT [employer] OR CHELSI AT [employer] FOR FITTING) Arthrex knotless FiberTak anchor Arthrex hip arthroscopy scope and cannula set Arthrex hip arthroscopy instrumentation [place] Table or [employer] Hip arthroscopy Advanced Supine Hip positioning system with secure heel boots Post (pink pad pending) Large C-arm Supine Closure: 2-0 Vicryl, 3-0 Prolene, Xeroform, 4x4, ABDs, MediPore Tape. Knee High BRITTANY PT within 3-7 days [facility] protocol (if outside hospital will supply copy) Follow-up: 2 weeks, 6 weeks, 3 months. (XR at 6 weeks) Dar Verma MD Sports Medicine/Orthopaedic Surgery documented in this encounter [facility] 04-06-2025 History of Presen t illness Narrative Radiology Service Progress Note PATIENT NAME: Macey Campbell DATE OF SERVICE: April 06, 2025 TIME: 7:08 AM PATIENT IDENTITY VERIFICATION COMPLETED USING TWO (2) IDENTIFIERS: Name and Date of confirmed by patient verbally. FALL SCREENING: Has the patient had 2 falls in the last year or 1 fall with injury or currently using an Ambulatory Assistive Device (Walker, Cane, Wheelchair, Crutches, etc.)? No PATIENT GENDER DATA: Assigned female at . status: : No status: NO. PATIENT RELEVANT IMPLANT DATA REVIEWED: Yes PATIENT PRESENTS WITH AN IMPLANTABLE OR ATTACHED CLINICAL RESEARCH SPEC: No RADIOLOGY DEPARTMENT: MR; Exam(s) Completed: Lower MSK: Hip, left. Lavender Administered: No PERIPHERAL IV DATA: Not applicable SIGNED BY: RT Judith(Janine) April 06, 2025 7:08 AM documented in this encounter [facility] 04-06-2025 Note HNO ID: [id number] Author: EVELIO JONES RT(R) Service: Radiology Author Type: Technologist Type: Progress Notes Filed: 04/06/2025 07:09 Note Text: Radiology Service Progress Note PATIENT NAME: Macey Campbell DATE OF SERVICE: April 06, 2025 TIME: 7:08 AM PATIENT IDENTITY VERIFICATION COMPLETED USING TWO (2) IDENTIFIERS: Name and Date of confirmed by patient verbally. FALL SCREENING: Has the patient had 2 falls in the last year or 1 fall with injury or currently using an Ambulatory Assistive Device (Walker, Cane, Wheelchair, Crutches, etc.)? No PATIENT GENDER DATA: Assigned female at . status: : No status: NO. PATIENT RELEVANT IMPLANT DATA REVIEWED: Yes PATIENT PRESENTS WITH AN IMPLANTABLE OR ATTACHED CLINICAL RESEARCH SPEC: No RADIOLOGY DEPARTMENT: MR; Exam(s) Completed: Lower MSK: Hip, left. Lavender Administered: No PERIPHERAL IV DATA: Not applicable SIGNED BY: RT Judith(Janine) April 06, 2025 7:08 AM [facility] 03-23-2025 Note HNO ID: [id number] Author: DINA CHAUHAN RT(Janine) Service: ? Author Type: Technologist Type: Progress Notes Filed: 03/23/2025 08:12 Note Text: Radiology Service Progress Note PATIENT NAME: Macey Campbell DATE OF SERVICE: March 23, 2025 TIME: 8:11 AM PATIENT IDENTITY VERIFICATION COMPLETED USING TWO (2) IDENTIFIERS: Name and Date of confirmed by patient verbally. FALL SCREENING: Has the patient had 2 falls in the last year or 1 fall with injury or currently using an Ambulatory Assistive Device (Walker, Cane, Wheelchair, Crutches, etc.)? No PATIENT GENDER DATA: Assigned female at . status: : No status: NO. PATIENT RELEVANT IMPLANT DATA REVIEWED: Not Applicable PATIENT PRESENTS WITH AN IMPLANTABLE OR ATTACHED CLINICAL RESEARCH SPEC: No RADIOLOGY DEPARTMENT: General X-ray: Exam(s) Completed: Pelvis X-Ray: Pelvis with Hip Left PERIPHERAL IV DATA: Not applicable SIGNED BY: valdez arrieta RT(R) March 23, 2025 8:11 AM [facility] 03-23-2025 Note HNO ID: [id number] Author: MAIKEL HECTOR PA-C Service: ? Author Type: Physician Compilation Clerk Type: Progress Notes Filed: 03/23/2025 12:13 Note Text: NEW ENCOUNTER Chief Complaint: Left hip pain PAIN INTAKE: PAIN EVALUATION 03/21/20252001 Pain Level: 8 Pain Location: Hip-Left Description: Aching;Dull;Sharp;Sore;Stiffness ;Tightness Duration Amount of Time: 11 Duration Units: Months Frequency: Continuous Intervention/Comfort measure: Medication;Reposition;Cold;Exerc ise;Massage;Other: See comment History: Patient is a 34 year old female presenting for left hip pain. Left Hip Pain: - Onset: Progressive onset since April of 2024; has had hip pain for several years. - Location: Primarily localized to the groin area. - Duration: Chronic, persistent pain. - Severity: Pain never fully resolves; no significant improvement with treatments. - Aggravating Factors: Squatting, walking, hills, stairs, sleeping, prolonged sitting. - Alleviating Factors: Sometimes improved with movement. - Radiation: Denies radiation down the extremity. - Associated Symptoms: Denies popping, clicking, or catching. - Treatments Tried: - Injections: - November: Numbing agent injected into the hip joint; provided temporary relief for a few hours. - December: Cortisone injection; minimal improvement for a few weeks. - Physical Therapy: Consistent since June of last year; no significant improvement. - Medications: Tried meloxicam, prednisone, and other anti-inflammatory medications with no significant relief. 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 - Denies history of surgeries on the hip. Social History: Tobacco Use: Types: Cigarettes Work: hr generalist [employer] Exercise: hiking Patient History PAST MEDICAL HISTORY Diagnosis Date GERD without esophagitis 12/31/2021 Obesity, Class I, BMI 30-34.9 12/31/2021 PCOS (polycystic ovarian syndrome) Tobacco use disorder 12/31/2021 PAST SURGICAL HISTORY Procedure Laterality Date COLONOSCOPY SCREENING 02/08/2024 EGD W/O BRSH SPEC VARICIES INJ 02/08/2024 LAPS ABD PRTMANDOMENTUM DX W/WO SPEC BR/WA SPX 2014 Laparoscopy - for r/o endometriosis, foung to have a cyst PT ED OBSTETRICS AND GYNECOLOGY N/A 12/2019 laparoscopic hysterectomy - for endometriosis - Dr. Shelley REMOVAL OF OVARY(S) Right 10/24/2020 ovarian torsion REMOVAL OF OVARY(S) Left 12/2020 Dr Jo SALPINGECTOMY Right 12/27/2016 laparoscopic Right salpingectomy- ECTOPIC omeprazole (PRILOSEC) 40 mg capsule Take 1 capsule by mouth once daily. gabapentin (NEURONTIN) 300 mg capsule Take 1 capsule by mouth three times a day for 180 days. rizatriptan (MAXALT ARMORING MACHINE OPERATOR) 10 mg disintegrating tablet Take 1 tablet (10 mg) by mouth as needed. May repeat in 2 hours if needed metFORMIN ER (GLUCOPHAGE XR) 500 mg 24 hr tablet Take 1 tablet by mouth daily with breakfast. spironolactone (ALDACTONE) 50 mg tablet Take 1 tablet by mouth two times a day. rosuvastatin (CRESTOR) 5 mg tablet Take 2 tablets by mouth daily at bedtime. amitriptyline (ELAVIL) 10 mg tablet Take 1 tablet by mouth daily at bedtime. estradiol (ESTRACE) 1 mg tablet Allergies: ALLERGIES Allergen Reactions Cleocin [Clindamyci* Rash Sulfa (Sulfonamide * Rash REVIEW OF SYSTEMS: Constitutional: (-) fever, (-) chills Cardiovascular: (-) chest pain, (-) palpitations Respiratory: (-) shortness of breath, (-) wheezing, (-) cough Gastrointestinal: (+) h/o acid reflux, (-) abdominal pain, (-) ulcers Musculoskeletal: see HPI Skin: (-) rashes, (-) skin lesions Hematologic/Lymphatic: (-) bleeding or clotting disorders Allergies, medications, past surgical history and past medical history were reviewed per this encounter. Physical Examination: Region: Hip General Appearance: Appears healthy, well-nourished, no deformities. Neck/Spine/Station/Gait: Antalgic Left Hip: Negative Trendelenburg sign No tenderness to palpation over lumbar spine Mild tenderness over greater trochanter No tenderness to palpation over the anterior hip Hip flexion 90 degrees, pain Hip IR 10 degrees, pain Hip ER 20 degrees, pain 4/5 resisted hip flexion, abduction, adduction 4+/5 resisted knee flexion and extension 5/5 ankle DF and PF Positive flexion/adduction/internal rotation Negative flexion/abduction/external rotation test Negative straight leg raise Neurovascular exam normal distally Right Hip: Negative Trendelenburg sign No tenderness to palpation over lumbar spine No tenderness over greater trochanter Hip flexion 110 degrees Hip IR 20 degrees Hip ER 30 degrees No weakness with resisted hip flexion, abduction or adduction Negative flexion/adduction/internal rotation Negative flexion/abduction/external rotation test Negative straight leg raise Neurovascular exam domenica (more content not included)... [facility] 03-20-2025 Telephone encounter Note Prescription Refill Information The patient has been identified by name and date of : Yes Caregiver verified no other encounters exist for this prescription request: Yes Caregiver confirmed with patient/requestor that no other refills are due, in the near future, with this provider at this time: Yes The last office visit in the department: 02/09/25 Does the patient have a future office visit with this provider/department: Yes Requested Prescriptions Pending Prescriptions Disp Refills omeprazole (PRILOSEC) 40 mg capsule 30 capsule 2 Sig: Take 1 capsule by mouth once daily. Kaylene Cuenca LPN March 20, 2025 12:40 PM [facility] 03-20-2025 Miscellaneous Notes Prescription Refill Information The patient has been identified by name and date of : Yes Caregiver verified no other encounters exist for this prescription request: Yes Caregiver confirmed with patient/requestor that no other refills are due, in the near future, with this provider at this time: Yes The last office visit in the department: 02/09/25 Does the patient have a future office visit with this provider/department: Yes Requested Prescriptions Pending Prescriptions Disp Refills omeprazole (PRILOSEC) 40 mg capsule 30 capsule 2 Sig: Take 1 capsule by mouth once daily. Kaylene Cuenca LPN March 20, 2025 12:40 PM documented in this encounter [facility] 03-14-2025 Note HNO ID: [id number] Author: MAGGY HAYES PA-C Service: ? Author Type: Physician Compilation Clerk Type: Progress Notes Filed: 03/14/2025 12:02 Note Text: Maggy Hayes PA-C Department of Orthopaedics Orthopaedics [address] [place] [id number] Dept: [phone] March 14, 2025 CHIEF COMPLAINT: Established Patient, Follow Up, and Pain of the Left Hip Hip Pain: - Presents with pain in her left hip which started insidiously April 2024. - Pain started in left buttock region wrapping around into the left groin region. Does not radiate down leg. - Pain is worse when she is standing, squatting or climbing stairs. - Has participetd in many months of PT w/o impvement. Pain since PT has localized to the groin. - X-rays of both the hip and lumbar spine are benign. - MRI showed a small labrum scuff in the anterior region, with no discrete tear. - Recent lidocaine only hip injection provided relief for few hours. - Had triamcinolone injection with Dr. Reinoso, injection was helpful but short lived, few days. - Currently undergoing physical therapy; frequency reduced to every other week. - Reports a recent incident where the hip locked and popped while using a stair climber, causing significant pain. 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 ASSESSMENT: M25.552 Pain of left hip (primary encounter diagnosis) PLAN: 1. Pain of left hip (M25.552) - Persistent left hip pain with minimal relief from previous Kenalog injection and physical therapy. - MRI showed a small anterior labral scuff without a discrete tear. - Discussed potential for further imaging with contrast MRI to better visualize any underlying issues. - Referred to sports medicine for second opinion. - Advised against further hip injections at this time to avoid potential complications. - Patient understands and agrees with the plan. Ms. Macey Campbell was advised as to contrast therapies and/or to take analgesics/anti-inflammatories as needed and all contraindications were reviewed. OBJECTIVE: Ms. Macey Campbell is a pleasant 34 year old in no apparent distress. Gen:LMP 08/04/2016 nl development, obese, no deformities ENT: Normocephalic, normal hearing, moist mucosa CV: Pulses:DP/PT= 2+ and symmetric, capillary refill < 2 secs, no peripheral edema/varicosities Skin: no rash, bruising or lesions. Good turgor. Psych: cooperative and appropriate, alert and oriented x 3, good mood and affect. Musculoskeletal: HIP EXAM: Left: ROM: Extension: full extension Flexion: 100 degrees Internal Rotation: 25 degrees External Rotation: 30 degrees Abduction: 30 degrees Adduction: 30 degrees Strength: Pain with resisted abduction and Pain with resisted hip flexion Palpation: Tenderness over left greater trochanter and SI joint Log roll: non-painful. Straight leg raise: Negative Neurovascular Status: Sensation Intact, Moves foot and ankle up AND down, and 2+ dorsalis pedis Imaging: IMPRESSION: Normal MRI of the left hip. Big Machine Consultant: PSCB Transcribe Date/Time: Sep 23 2024 9:02A Dictated by : RAISSA PALMER MD This examination was interpreted and the report reviewed and electronically signed by: GRACE REYES MD on Sep 23 2024 3:28PM EST Results-Findings * * *Final Report* * * DATE OF EXAM: Sep 23 2024 7:35AM [facility] 0206 - MRI HIP WO IVCON LT / PROCEDURE REASON: Pain of left hip * * * * Physician Interpretation * * * * EXAMINATION: MRI HIP WO IVCON LT HISTORY: Pain of left hip, tenderness. Concern for intra-articular issue versus piriformis syndrome. TECHNIQUE: Routine multiplanar MRI of the hip without contrast COMPARISON: Radiograph left hip 09/08/2024 RESULT: Hip joints: Left hip: Mild fraying with increased signal in the anterior labrum (7:16 for example). No discrete labral tear. The articular cartilage is preserved. There is no joint effusion. Large [id number] images of the right hip are unremarkable. Evaluation of articular cartilage and labrum is limited. Bone Marrow: No fracture or suspicious marrow replacing lesions. Sacroiliac joints: Within normal limits. Pubic symphysis: Within normal limits. Tendons: The iliopsoas, hamstring, gluteal, and rectus femoris tendons are intact. Muscles: Within normal limits. Other: Hysterectomy Localizer images: No significant additional findings. Supporting Subjective Information Below: Past Surgical History: PAST SURGICAL HISTORY Procedure Laterality Date COLONOSCOPY SCREENING 02/08/2024 EGD W/O BRSH SPEC VARICIES INJ 02/08/2024 LAPS ABD PRTMANDOMENTUM DX W/WO SPEC BR/WA SPX 2014 Laparoscopy - for r/o endometriosis, foung to have a cyst PT ED OBSTETRICS AND GYNECOLOGY N/A 12/2019 laparoscopic hysterectomy - for endometriosis - Dr. Shelley REMOVAL OF OVARY(S) Right 10/24/2020 ovarian torsion REMOVAL OF OVARY(S) Left 12/2020 (more content not included)... [facility] 03-14-2025 History of Presen t illness Narrative Maggy Hayes PA-C Department of Orthopaedics Orthopaedics [address] [address] Dept: [phone] March 14, 2025 CHIEF COMPLAINT: Established Patient, Follow Up, and Pain of the Left Hip Hip Pain: - Presents with pain in her left hip which started insidiously April 2024. - Pain started in left buttock region wrapping around into the left groin region. Does not radiate down leg. - Pain is worse when she is standing, squatting or climbing stairs. - Has participetd in many months of PT w/o impvement. Pain since PT has localized to the groin. - X-rays of both the hip and lumbar spine are benign. - MRI showed a small labrum scuff in the anterior region, with no discrete tear. - Recent lidocaine only hip injection provided relief for few hours. - Had triamcinolone injection with Dr. Reinoso, injection was helpful but short lived, few days. - Currently undergoing physical therapy; frequency reduced to every other week. - Reports a recent incident where the hip locked and popped while using a stair climber, causing significant pain. 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 ASSESSMENT: M25.552 Pain of left hip (primary encounter diagnosis) PLAN: 1. Pain of left hip (M25.552) - Persistent left hip pain with minimal relief from previous Kenalog injection and physical therapy. - MRI showed a small anterior labral scuff without a discrete tear. - Discussed potential for further imaging with contrast MRI to better visualize any underlying issues. - Referred to sports medicine for second opinion. - Advised against further hip injections at this time to avoid potential complications. - Patient understands and agrees with the plan. Ms. Macey Campbell was advised as to contrast therapies and/or to take analgesics/anti-inflammatories as needed and all contraindications were reviewed. OBJECTIVE: Ms. Macey Campbell is a pleasant 34 year old in no apparent distress. Gen:LMP 08/04/2016 nl development, obese, no deformities ENT: Normocephalic, normal hearing, moist mucosa CV: Pulses:DP/PT= 2+ and symmetric, capillary refill < 2 secs, no peripheral edema/varicosities Skin: no rash, bruising or lesions. Good turgor. Psych: cooperative and appropriate, alert and oriented x 3, good mood and affect. Musculoskeletal: HIP EXAM: Left: ROM: Extension: full extension Flexion: 100 degrees Internal Rotation: 25 degrees External Rotation: 30 degrees Abduction: 30 degrees Adduction: 30 degrees Strength: Pain with resisted abduction and Pain with resisted hip flexion Palpation: Tenderness over left greater trochanter and SI joint Log roll: non-painful. Straight leg raise: Negative Neurovascular Status: Sensation Intact, Moves foot and ankle up & down, and 2+ dorsalis pedis Imaging: IMPRESSION: Normal MRI of the left hip. Big Machine Consultant: PSCB Transcribe Date/Time: Sep 23 2024 9:02A Dictated by : RAISSA PALMER MD This examination was interpreted and the report reviewed and electronically signed by: GRACE REYES MD on Sep 23 2024 3:28PM EST Results-Findings * * *Final Report* * * DATE OF EXAM: Sep 23 2024 7:35AM [facility] 0206 - MRI HIP WO IVCON LT / PROCEDURE REASON: Pain of left hip * * * * Physician Interpretation * * * * EXAMINATION: MRI HIP WO IVCON LT HISTORY: Pain of left hip, tenderness. Concern for intra-articular issue versus piriformis syndrome. TECHNIQUE: Routine multiplanar MRI of the hip without contrast COMPARISON: Radiograph left hip 09/08/2024 RESULT: Hip joints: Left hip: Mild fraying with increased signal in the anterior labrum (7:16 for example). No discrete labral tear. The articular cartilage is preserved. There is no joint effusion. Large ogagc-bz-vimi images of the right hip are unremarkable. Evaluation of articular cartilage and labrum is limited. Bone Marrow: No fracture or suspicious marrow replacing lesions. Sacroiliac joints: Within normal limits. Pubic symphysis: Within normal limits. Tendons: The iliopsoas, hamstring, gluteal, and rectus femoris tendons are intact. Muscles: Within normal limits. Other: Hysterectomy Localizer images: No significant additional findings. Supporting Subjective Information Below: Past Surgical History: PAST SURGICAL HISTORY Procedure Laterality Date COLONOSCOPY SCREENING 02/08/2024 EGD W/O BRSH SPEC VARICIES INJ 02/08/2024 LAPS ABD PRTM&OMENTUM DX W/WO SPEC BR/WA SPX 2014 Laparoscopy - for r/o endometriosis, foung to have a cyst PT ED OBSTETRICS & GYNECOLOGY N/A 12/2019 laparoscopic hysterectomy - for endometriosis - Dr. Shelley REMOVAL OF OVARY(S) Right 10/24/2020 ovarian torsion REMOVAL OF OVARY(S) Left 12/2020 Dr Jo SALPINGECTOMY Right 12/27/2016 laparoscopic Right salpingectomy- ECTOPIC Medications: Current Outpatient Medications Medication Sig gabapentin (NEURONTIN) 300 mg capsule Take 1 capsule by mouth three times a day for 180 days. rizatriptan (MAXALT ARMORING MACHINE OPERATOR) 10 mg disintegrating tablet Take 1 tablet (10 mg) by mouth as needed. May repeat in 2 hours if needed metFORMIN ER (GLUCOPHAGE XR) 500 mg 24 hr tablet Take 1 tablet by mouth daily with breakfast. spironolactone (ALDACTONE) 50 mg tablet Take 1 tablet by mouth two times a day. omeprazole (PRILOSEC) 40 mg capsule Take 1 capsule by mouth once daily. rosuvastatin (CRESTOR) 5 mg tablet Take 2 tablets by mouth daily at bedtime. amitriptyline (ELAVIL) 10 mg tablet Take 1 tablet by mouth daily at bedtime. estradiol (ESTRACE) 1 mg tablet No current facility-administered medications for this visit. Allergies: Cleocin [Clindamycin] and Sulfa (Sulfonamide Antibiotics) ROS: General (negative for fatigue, malaise, weight loss/gain) HEENT (negative for headache, earache, recent vision changes, sinus pain, sore throat) Respiratory (no recent shortness of breath, hemoptysis) CV (negative for chest tightness, palpitations) Musculoskeletal (see HPI) Psych (no depression, anxiety) This note was partially generated using [email or web address] voice recognition system, and there may be some incorrect words, spellings, and punctuation that were not noted in checking the note before saving. Maggy Hayes PA-C documented in this encounter [facility] 03-02-2025 Note HNO ID: [id number] Author: BERNABE ISLAS APRN.FRANCHISE DEVELOPMENT MANAGER Service: ? Author Type: Nurse Practitioner Type: Progress Notes Filed: 03/02/2025 18:50 Note Text: [facility] Subjective Macey Campbell is a 34 year old female. Patient presents with: Low Back Pain: Chronic L hip pain, low back pain started at work today with lifting, fever HPI Nontoxic-appearing 34-year-old female presents urgent care chief complaint lower back pain. Duration of symptom today. Associated symptoms 9-10 out of 10 lower back pain. Presents today for evaluation. OTC medications Tylenol Motrin does not help. History of low back pain this is worse. Denies any injuries. No saddle anesthesia or incontinence. Past medical history prescription medications allergies reviewed. Review of Systems Constitutional: Negative for chills, diaphoresis, fatigue and fever. HENT: Negative for congestion, drooling, ear discharge, ear pain, rhinorrhea, sinus pressure, sinus pain, sneezing, sore throat and trouble swallowing. Eyes: Negative for pain, discharge, redness, itching and visual disturbance. Respiratory: Negative for cough, chest tightness, shortness of breath and wheezing. Cardiovascular: Negative for chest pain. Gastrointestinal: Negative for abdominal distention, abdominal pain, blood in stool, constipation, diarrhea, nausea and vomiting. Genitourinary: Negative for difficulty urinating and dysuria. Musculoskeletal: Positive for back pain. Negative for arthralgias, joint swelling, neck pain and neck stiffness. Skin: Negative for rash. Neurological: Negative for dizziness, weakness, numbness and headaches. Objective BP 125/71 Pulse (!) 121 Temp (!) 38.7 ?C (101.7 ?F) Resp 18 Wt 81.7 kg (180 lb 1.9 oz) LMP 08/04/2016 SpO2 97% BMI 31.91 kg/m? Physical Exam Constitutional: Appearance: Normal appearance. She is normal weight. HENT: Head: Normocephalic. Eyes: Conjunctiva/sclera: Conjunctivae normal. Cardiovascular: Rate and Rhythm: Normal rate. Pulmonary: Effort: Pulmonary effort is normal. Musculoskeletal: Arms: Cervical back: Normal range of motion. Comments: Back pain highlighted area. No erythema edema noted. No rashes. No spinal tenderness. Skin: Findings: No rash. Neurological: General: No focal deficit present. Mental Status: She is alert and oriented to person, place, and time. Mental status is at baseline. {ASSESSMENT/PLAN: 1. Low back pain, unspecified back pain laterality, unspecified chronicity, unspecified whether sciatica present - ICD9: 724.2, ICD10: M54.50 Diagnosis lower back pain. On examination patient's pain 9-10 out of 10. Coupled with fever and tachycardia referred to ED. Will be seen [facility]. Bernabe Islas APRN.FRANCHISE DEVELOPMENT MANAGER [facility] Procedures [facility] 03-02-2025 History of Presen t illness Narrative Images from the original note were not included. [facility] Subjective Macey Campbell is a 34 year old female. Patient presents with: Low Back Pain: Chronic L hip pain, low back pain started at work today with lifting, fever HPI Nontoxic-appearing 34-year-old female presents urgent care chief complaint lower back pain. Duration of symptom today. Associated symptoms 9-10 out of 10 lower back pain. Presents today for evaluation. OTC medications Tylenol Motrin does not help. History of low back pain this is worse. Denies any injuries. No saddle anesthesia or incontinence. Past medical history prescription medications allergies reviewed. Review of Systems Constitutional: Negative for chills, diaphoresis, fatigue and fever. HENT: Negative for congestion, drooling, ear discharge, ear pain, rhinorrhea, sinus pressure, sinus pain, sneezing, sore throat and trouble swallowing. Eyes: Negative for pain, discharge, redness, itching and visual disturbance. Respiratory: Negative for cough, chest tightness, shortness of breath and wheezing. Cardiovascular: Negative for chest pain. Gastrointestinal: Negative for abdominal distention, abdominal pain, blood in stool, constipation, diarrhea, nausea and vomiting. Genitourinary: Negative for difficulty urinating and dysuria. Musculoskeletal: Positive for back pain. Negative for arthralgias, joint swelling, neck pain and neck stiffness. Skin: Negative for rash. Neurological: Negative for dizziness, weakness, numbness and headaches. Objective BP 125/71 Pulse (!) 121 Temp (!) 38.7 C (101.7 F) Resp 18 Wt 81.7 kg (180 lb 1.9 oz) LMP 08/04/2016 SpO2 97% BMI 31.91 kg/m Physical Exam Constitutional: Appearance: Normal appearance. She is normal weight. HENT: Head: Normocephalic. Eyes: Conjunctiva/sclera: Conjunctivae normal. Cardiovascular: Rate and Rhythm: Normal rate. Pulmonary: Effort: Pulmonary effort is normal. Musculoskeletal: Arms: Cervical back: Normal range of motion. Comments: Back pain highlighted area. No erythema edema noted. No rashes. No spinal tenderness. Skin: Findings: No rash. Neurological: General: No focal deficit present. Mental Status: She is alert and oriented to person, place, and time. Mental status is at baseline. {ASSESSMENT/PLAN: 1. Low back pain, unspecified back pain laterality, unspecified chronicity, unspecified whether sciatica present - ICD9: 724.2, ICD10: M54.50 Diagnosis lower back pain. On examination patient's pain 9-10 out of 10. Coupled with fever and tachycardia referred to ED. Will be seen [facility]. Bernabe Islas APRN.ESSIE MDM Procedures documented in this encounter [facility] 02-21-2025 History of Presen t illness Narrative Program_ID:[id number] Access Code: [email or web address] URL: [email or web address] Date: 02-21-2025 Prepared By: [place] Program Notes Exercises - Hooklying Gluteal Sets - 2 x daily - 7 x weekly - 2 sets - 5 reps - Supine Posterior Pelvic Tilt - 2 x daily - 7 x weekly - 4 sets - 10 reps - Cat Cow - 2 x daily - 7 x weekly - 4 sets - 10 reps - Quadruped Rocking Slow - 2 x daily - 7 x weekly - 4 sets - 10 reps Images from the original note were not included. Episode Visit Count: 6 Therapist That Will Accept/Oversee The Plan Of Care: Macey Kaiser Start of Care Date: 01/09/25 Onset Date: 04/11/24 Plan of Care Certification Date: 02/21/25 Next Certification Due Date: 04/04/25 REHABILITATION AND SPORTS THERAPY PHYSICAL THERAPY PROGRESS REPORT PLAN OF CARE UPDATE: Assessment: Macey Campbell demonstrates improvements in walking in the community and stair negotiation. The patient has progressed toward goals. Patient continues to present with impairments in ADL's, balance, flexibility, gait, independence in exercise, joint mobility, overall function, patient reported outcome measures, posture, range of motion, strength, symptom management, and tissue tenderness that interfere with squatting, standing, rising from a chair, sitting (worse with ascending steps) . Current prognosis is Fair due to: poor past response to therapy intervention . The patient will benefit from continued skilled therapy services to meet the updated goals for this plan of care as noted below. Goals for Episode of Care: established 01/09/25 Goals updated on 02/21/2025. [place] in home exercise program. -- MET Patient will decrease pain to 1-2/10 with functional activities to allow patient to improve ambulation, transfers, and standing tolerance for ADLs. --PROGRESSING Patient will demonstrate increase in L hip flexion, abd, ER, and IR strength to 4/5 during manual muscle testing in order to improve function for prior functional tasks. -- PROGRESSING Perform walking community distances with decreased report of symptoms/pain in 6 weeks. -- MET Normal gait. -- PROGRESSING Reciprocal stair negotiation. -- MET Patient Goals: reduce L hip pain, walk up hill, 30 min of ambulation in the community without increased symptoms -- PROGRESSING Time Frame for Goals and Treatment : 04/04/25 Patient Goals: reduce L hip pain, walk up hill, 30 min of ambulation in the community without increased symptoms Planned Interventions, Frequency, and Duration: 1x every other week, 6 weeks Total Number of Visits Planned: 3 Patient to be seen for Gait Training ([id number]), Self-mcfp management (46966), Therapeutic activities (87345), Manual therapy (42867), Neuromuscular re-education (16510), Therapeutic exercise (63272) PLAN FOR NEXT VISIT: empahsis on core stabilization strengthening. Quadruped. Hip AROM in quadruped as tolerated. Pt. to call ortho to get an appointment. SUBJECTIVE: Pt. son was in the hospital so she has not been aggravating her hip. Certain positions bother it. Continues to have difficulty with walking up hill. Stairs and community distances are fine.. Patient Goals: reduce L hip pain, walk up hill, 30 min of ambulation in the community without increased symptoms Functional Limitations: squatting, standing, rising from a chair, sitting (worse with ascending steps) Pain: Pain Pain Level: 4 Pain Location: Hip - Left Description: Aching Post Treatment Pain Post Treatment Pain Level: 6 Post Treatment Pain Location: Hip - Left PROMIS Scales 02/20/2025 01/23/2025 12/21/2024 Higher is Better Phys Func - T Score 38 (moderate dysfunction) 38 (moderate dysfunction) 35 (moderate dysfunction) Phys Func - Percentile 12 12 7 Self-Eff Symptom - T Score 39 (Low) 38 (Low) 39 (Low) Self-Eff Symptom - Percentile 14 12 14 T-scores: mean of general population = 50. 5 points is clinically meaningfully difference Percentiles provide an indication of how the patient's score ranks in relation to the general population. Higher percentile rankings indicate better function/quality of life. 50th percentile is the average of the general population and indicates half of respondents had a worse score. OBJECTIVE MEASURES WITH LEVEL OF FUNCTION: LE AROM L Hip Flexion: 103 Degrees L Hip ABduction : 22 Degrees L Hip Internal Rotation: 40 Degrees L Hip External Rotation: 45 Degrees LE Flexibility Flexibility: Hip Flexor Flexibility R Hamstring Flexibility: limited L Hamstring Flexibility: limited L Hip Flexor Flexibility: limited L Adductor Flexibility: limited L Hip External Rotation Flexibility: limited LE Strength R Hip Flexion (L2): 3+/5 R Hip ABduction: 4+/5 R Hip Internal Rotation: 3-/5 R Hip External Rotation: 3-/5 L Hip Flexion (L2): 3-/5 L Hip ABduction: 2/5 (requires assistance to get into position- painful at the anterior hip, pt. wants to flex the hip) L Hip Internal Rotation: 4+/5 L Hip External Rotation: 4+/5 Special Tests - Hip and Spine SLR Test: Left Positive LIZETTE Test: Right Positive FADDIR Test: Left Negative Active SLR: Left Positive Gait Gait: Independent Gait Distance (feet): 40 Gait Device: None Gait Deviations: Left Lower Extremity Gait Deviations Left Lower Extremity: Heel strike during initial stance decreased, Lacks full knee extension during terminal swing, Lacks hip extension beyond mid-stance, Push off during terminal stance decreased, Knee stability during stance phase decreased, Stance time decreased TREATMENT: Therapeutic Exercise: 1: seat 13, scifit stepper, level 2, 1:1 throughout, subjective collected 5 min 2: hook lying SLR 2x5 each side 3: SL hip abd 2x5 each isde 4: SL hip ER 2x5 each side 5: L KTC stretch 1x30 sec - limited and painful dc 6: supine AROM hip abd 5x L 7: quadruped tail wag (QL stretching) 4x10 Skilled Intervention: Patient was educated in proper exercise technique and purpose for exercises. Skilled judgment was used in selection of appropriate interventions. Provided written instruction for home exercise program to facilitate proper performance and compliance. Correct performance of therapeutic exercises was facilitated with verbal, visual, and tactile cuing. Educated patient on rationale for performing exercises in regards to decreasing fatigue , including balance, increase ease of ADL, and ROM and function . Patient education as noted. Billing Therapeutic Exercise Treatment Minutes: 38 Skilled Treatment Time Minutes (timed and untimed codes): 38 Total Session Time (minutes): 38 Session Start Time : 808 Session Stop Time : 846 Macey Kaiser PT documented in this encounter [facility] 02-21-2025 Note HNO ID: [id number] Author: MACEY KAISER DEYANIRA Service: ? Author Type: Physical Therapist Type: Progress Notes Filed: 05/01/2025 12:03 Note Text: 05/01/2025 [facility] REHABILITATION AND SPORTS THERAPY PHYSICAL THERAPY DISCONTINUANCE OF CARE Plan of Care Period: Start of Care Date: 05/01/25 Last Visit Date: 02/21/2025 Therapy Program: The following is a summary of the interventions provided for this episode of care; Therapeutic exercise, Neuromuscular re-education, and Self-mcfp management Assessment: The following is the goal status: Goals for Episode of Care: established 05/01/25 [place] in home exercise program. Patient will decrease pain to 1-2/10 with functional activities to allow patient to improve ambulation, transfers, and standing tolerance for ADLs. Perform walking community distances with decreased report of symptoms/pain in 12 weeks. Perform sleeping 6-8 hours without increased L hip pain. Normal gait. Reciprocal stair negotiation. Patient Goals: restore strength and mobility of the L hip Based on the most recent progress report, patient was progressing slower than expected toward functional goals based on documented subjective information on progress. Reason for Discontinuation of Care: Patient has not returned to therapy or scheduled additional follow-up appointments. Macey Kaiser PT Episode Visit Count: 6 Therapist That Will Accept/Oversee The Plan Of Care: Macey Kaiser Start of Care Date: 01/09/25 Onset Date: 04/11/24 Plan of Care Certification Date: 02/21/25 Next Certification Due Date: 04/04/25 REHABILITATION AND SPORTS THERAPY PHYSICAL THERAPY PROGRESS REPORT PLAN OF CARE UPDATE: Assessment: Macey Campbell demonstrates improvements in walking in the community and stair negotiation. The patient has progressed toward goals. Patient continues to present with impairments in ADL's, balance, flexibility, gait, independence in exercise, joint mobility, overall function, patient reported outcome measures, posture, range of motion, strength, symptom management, and tissue tenderness that interfere with squatting, standing, rising from a chair, sitting (worse with ascending steps) . Current prognosis is Fair due to: poor past response to therapy intervention . The patient will benefit from continued skilled therapy services to meet the updated goals for this plan of care as noted below. Goals for Episode of Care: established 01/09/25 Goals updated on 02/21/2025. [place] in home exercise program. -- MET Patient will decrease pain to 1-2/10 with functional activities to allow patient to improve ambulation, transfers, and standing tolerance for ADLs. --PROGRESSING Patient will demonstrate increase in L hip flexion, abd, ER, and IR strength to 4/5 during manual muscle testing in order to improve function for prior functional tasks. -- PROGRESSING Perform walking community distances with decreased report of symptoms/pain in 6 weeks. -- MET Normal gait. -- PROGRESSING Reciprocal stair negotiation. -- MET Patient Goals: reduce L hip pain, walk up hill, 30 min of ambulation in the community without increased symptoms -- PROGRESSING Time Frame for Goals and Treatment : 04/04/25 Patient Goals: reduce L hip pain, walk up hill, 30 min of ambulation in the community without increased symptoms Planned Interventions, Frequency, and Duration: 1x every other week, 6 weeks Total Number of Visits Planned: 3 Patient to be seen for Gait Training ([id number]), Self-mcfp management ([id number]), Therapeutic activities (35814), Manual therapy (27714), Neuromuscular re-education (89304), Therapeutic exercise (73038) PLAN FOR NEXT VISIT: empahsis on core stabilization strengthening. Quadruped. Hip AROM in quadruped as tolerated. Pt. to call ortho to get an appointment. SUBJECTIVE: Pt. son was in the hospital so she has not been aggravating her hip. Certain positions bother it. Continues to have difficulty with walking up hill. Stairs and community distances are fine.. Patient Goals: reduce L hip pain, walk up hill, 30 min of ambulation in the community without increased symptoms Functional Limitations: squatting, standing, rising from a chair, sitting (worse with ascending steps) Pain: Pain Pain Level: 4 Pain Location: Hip - Left Description: Aching Post Treatment Pain Post Treatment Pain Level: 6 Post Treatment Pain Location: Hip - Left PROMIS Scales 02/20/2025 01/23/2025 12/21/2024 Higher is Better Phys Func - T Score 38 (moderate dysfunction) 38 (moderate dysfunction) 35 (moderate dysfunction) Phys Func - Percentile 12 12 7 Self-Eff Symptom - T Score 39 (Low) 38 (Low) 39 (Low) Self-Eff Symptom - Percentile 14 12 14 T-scores: mean of general population = 50. 5 points is clinically meaningfully difference Percentiles provide an indication of how the patient's score ranks in relation to the general po (more content not included)... [facility] 02-09-2025 History of Presen t illness Narrative Program_ID:[id number] Access Code: [email or web address] URL: [email or web address] Date: 02-09-2025 Prepared By: [place] Program Notes Exercises - Clamshell - 2 x daily - 7 x weekly - 2 sets - 15 reps - Supine Hip Internal and External Rotation - 2 x daily - 7 x weekly - 3 sets - 15 reps - Hooklying Gluteal Sets - 2 x daily - 7 x weekly - 2 sets - 5 reps - Supine Posterior Pelvic Tilt - 2 x daily - 7 x weekly - 4 sets - 10 reps Episode Visit Count: 5 Therapist That Will Accept/Oversee The Plan Of Care: Macey Kaiser Start of Care Date: 01/09/25 Onset Date: 04/11/24 Plan of Care Certification Date: 01/09/25 Next Certification Due Date: 02/20/25 REHABILITATION AND SPORTS THERAPY PHYSICAL THERAPY TREATMENT NOTE ASSESSMENT: Maceyridge Campbell tolerated the session with fatigue and expected muscle soreness. She demonstrated difficulty with tolerating L hip IR at 90 degrees of flexion, but this was better tolerated at neutral extension in supine. Able to complete a PPT in hooklying using biofeedback. The patient will continue to benefit from ongoing skilled physical therapy to progress toward set goals. PLAN FOR NEXT VISIT: assess symptom response to updated HEP that modified exercises to the supine/hook lying position to improve IR tolerance of the L hip, continue core stabilization strengthneing with LLE movement SUBJECTIVE: Prone hip extension causes increased groin pain. Last night pt.had pain with just standing up last night after work. Pain: Pain Pain Level: 5 Pain Location: Hip - Left Description: Aching Post Treatment Pain Post Treatment Pain Level: Better Post Treatment Pain Location: Hip - Left OBJECTIVE MEASURES WITH LEVEL OF FUNCTION: TREATMENT: Therapeutic Exercise: 1: seat 13, scifit stepper, level 2, 1:1 throughout, subjective collected 5 min (sharp pain (9/10) with moving LLE laterally getting off of the bike) 2: hook position B hip IR foam roller between the knees, hips flexed 90 degrees, 3x10 3: supine L hip IR AROM supine, knee extended, instructed to move only to the first point of pain 3x15 4: standing in // bars IR hip stride 2x 15 5: standing in // bars lumbar extension 4x10 Skilled Intervention: Patient was educated in proper exercise technique and purpose for exercises. Reviewed and educated patient on additions/changes for home exercise program. Skilled judgment was used in selection of appropriate interventions. Provided written instruction for home exercise program to facilitate proper performance and compliance. Correct performance of therapeutic exercises was facilitated with verbal, visual, and tactile cuing. Educated patient on rationale for performing exercises in regards to decreasing fatigue , increase ease of ADL, and ROM and function . Patient education as noted. Neuromuscular Re-Education: 1: hook lying PPT with biofeedback 4x10, 1 sec hold 20 mmHg to 40+ mmHg 2: hook lying PPT with bent knee fall out at 45 mmHg 4x10 (5 each side per set) more difficulty maintaining LLE ER Skilled Intervention: Skilled judgment used to assess appropriate program for balance and coordination activity. Education in proprioceptive/kinesthetic awareness during standing and dynamic activities. Correct performance of home program was facilitated with verbal, visual, and tactile cueing. Patient education as noted. Billing Therapeutic Exercise Treatment Minutes: 24 Neuromuscular Re-Education Treatment Minutes: 15 Skilled Treatment Time Minutes (timed and untimed codes): 39 Total Session Time (minutes): 39 Session Start Time : 919 Session Stop Time : 958 Macey Kaiser PT documented in this encounter [facility] 02-09-2025 Note HNO ID: [id number] Author: MACEY KAISER PT Service: ? Author Type: Physical Therapist Type: Progress Notes Filed: 02/09/2025 10:00 Note Text: Episode Visit Count: 5 Therapist That Will Accept/Oversee The Plan Of Care: Macey Kaiser Start of Care Date: 01/09/25 Onset Date: 04/11/24 Plan of Care Certification Date: 01/09/25 Next Certification Due Date: 02/20/25 REHABILITATION AND SPORTS THERAPY PHYSICAL THERAPY TREATMENT NOTE ASSESSMENT: Macey Campbell tolerated the session with fatigue and expected muscle soreness. She demonstrated difficulty with tolerating L hip IR at 90 degrees of flexion, but this was better tolerated at neutral extension in supine. Able to complete a PPT in hooklying using biofeedback. The patient will continue to benefit from ongoing skilled physical therapy to progress toward set goals. PLAN FOR NEXT VISIT: assess symptom response to updated HEP that modified exercises to the supine/hook lying position to improve IR tolerance of the L hip, continue core stabilization strengthneing with LLE movement SUBJECTIVE: Prone hip extension causes increased groin pain. Last night pt.had pain with just standing up last night after work. Pain: Pain Pain Level: 5 Pain Location: Hip - Left Description: Aching Post Treatment Pain Post Treatment Pain Level: Better Post Treatment Pain Location: Hip - Left OBJECTIVE MEASURES WITH LEVEL OF FUNCTION: TREATMENT: Therapeutic Exercise: 1: seat 13, scifit stepper, level 2, 1:1 throughout, subjective collected 5 min (sharp pain (9/10) with moving LLE laterally getting off of the bike) 2: hook position B hip IR foam roller between the knees, hips flexed 90 degrees, 3x10 3: supine L hip IR AROM supine, knee extended, instructed to move only to the first point of pain 3x15 4: standing in // bars IR hip stride 2x 15 5: standing in // bars lumbar extension 4x10 Skilled Intervention: Patient was educated in proper exercise technique and purpose for exercises. Reviewed and educated patient on additions/changes for home exercise program. Skilled judgment was used in selection of appropriate interventions. Provided written instruction for home exercise program to facilitate proper performance and compliance. Correct performance of therapeutic exercises was facilitated with verbal, visual, and tactile cuing. Educated patient on rationale for performing exercises in regards to decreasing fatigue , increase ease of ADL, and ROM and function . Patient education as noted. Neuromuscular Re-Education: 1: hook lying PPT with biofeedback 4x10, 1 sec hold 20 mmHg to 40+ mmHg 2: hook lying PPT with bent knee fall out at 45 mmHg 4x10 (5 each side per set) more difficulty maintaining LLE ER Skilled Intervention: Skilled judgment used to assess appropriate program for balance and coordination activity. Education in proprioceptive/kinesthetic awareness during standing and dynamic activities. Correct performance of home program was facilitated with verbal, visual, and tactile cueing. Patient education as noted. Billing Therapeutic Exercise Treatment Minutes: 24 Neuromuscular Re-Education Treatment Minutes: 15 Skilled Treatment Time Minutes (timed and untimed codes): 39 Total Session Time (minutes): 39 Session Start Time : 919 Session Stop Time : 958 Macey Kaiser, PT [facility] 02-09-2025 Instructions Syl Tai APRN.CNP - 02/09/2025 8:50 AM EDT 1) Gabapentin 300 mg 3 x day- if sleepy, cut back to 2 x day 2) Augmentin 875 mg 2 x day for 10 days 3) Use Neti pot while on antibiotic documented in this encounter [facility] 02-09-2025 Note HNO ID: [id number] Author: SYL TAI APRN.ESSIE Service: ? Author Type: Nurse Practitioner Type: Progress Notes Filed: 02/09/2025 08:50 Note Text: This is a 34 year old female who presents today with: Patient presents with: Follow Up HISTORY OF PRESENT ILLNESS: Macey Campbell is a 34 year old female. Patient presents with: Follow Up Facial pain right cheek. Achy- some sharp. Did not fill tegretol. Some sinusitis. 01/09. Some sharp periods that may last up to 10 min. Some family Hx of nerve trouble. Pressing on her right cheek aggravates it. Tobacco use. No further chest pain or ABDOMINAL PAIN/. No gall stones. Aware of hepatic steatosis. PAST MEDICAL HISTORY: PAST MEDICAL HISTORY Diagnosis Date GERD without esophagitis 12/31/2021 Obesity, Class I, BMI 30-34.9 12/31/2021 PCOS (polycystic ovarian syndrome) Tobacco use disorder 12/31/2021 PAST SURGICAL HISTORY Procedure Laterality Date COLONOSCOPY SCREENING 02/08/2024 EGD W/O BRSH SPEC VARICIES INJ 02/08/2024 LAPS ABD PRTMANDOMENTUM DX W/WO SPEC BR/WA SPX 2014 Laparoscopy - for r/o endometriosis, foung to have a cyst PT ED OBSTETRICS AND GYNECOLOGY N/A 12/2019 laparoscopic hysterectomy - for endometriosis - Dr. Shelley REMOVAL OF OVARY(S) Right 10/24/2020 ovarian torsion REMOVAL OF OVARY(S) Left 12/2020 Dr Jo SALPINGECTOMY Right 12/27/2016 laparoscopic Right salpingectomy- ECTOPIC ALLERGIES Cleocin [Clindamycin] and Sulfa (Sulfonamide Antibiotics) MEDICATIONS Current Outpatient Medications Medication Sig rizatriptan (MAXALT ARMORING MACHINE OPERATOR) 10 mg disintegrating tablet Take 1 tablet (10 mg) by mouth as needed. May repeat in 2 hours if needed metFORMIN ER (GLUCOPHAGE XR) 500 mg 24 hr tablet Take 1 tablet by mouth daily with breakfast. spironolactone (ALDACTONE) 50 mg tablet Take 1 tablet by mouth two times a day. omeprazole (PRILOSEC) 40 mg capsule Take 1 capsule by mouth once daily. amitriptyline (ELAVIL) 10 mg tablet Take 1 tablet by mouth daily at bedtime. estradiol (ESTRACE) 1 mg tablet rosuvastatin (CRESTOR) 5 mg tablet Take 2 tablets by mouth daily at bedtime. No current facility-administered medications for this visit. FAMILY HISTORY Problem Relation Age of Onset Cervical Cancer Mother other (breast cyst [Other]) Mother Hyperlipidemia Father Hypertension Father other (sepsis) Father (after ruptured appe and another surgical complication where bowel was perforated during [place]). No Known Problems Sister No Known Problems Sister ADD/ADHD Brother Depression Brother ADD/ADHD Brother Stroke Maternal Grandmother No Known Problems Maternal Grandfather Hypertension Paternal Grandmother Hyperlipidemia Paternal Grandmother Skin Cancer Paternal Grandmother other (ewings sarcoma) Paternal Grandmother Hypertension Paternal Grandfather Heart Attack Paternal Grandfather Diabetes Paternal Grandfather Hyperlipidemia Paternal Grandfather COPD Paternal Grandfather ADD/ADHD Son Social History Tobacco Use Smoking status: Every Day Current packs/day: 0.50 Average packs/day: 0.5 packs/day for 15.0 years (7.5 ttl pk-yrs) Types: Cigarettes Smokeless tobacco: Never Vaping Use Vaping status: Never Used Substance Use Topics Alcohol use: Yes Alcohol/week: 1.0 standard drink of alcohol Types: 1 Glasses of Wine (5oz) per week Comment: Social Drug use: No EXAM: BP 110/76 Pulse 89 Temp 36.3 ?C (97.4 ?F) (Left Tympanic) Wt 81.2 kg (179 lb) LMP 08/04/2016 SpO2 99% BMI 31.71 kg/m? PHYSICAL EXAM: Physical Exam Vitals reviewed. Constitutional: Appearance: Normal appearance. HENT: Head: Normocephalic. Right Ear: Tympanic membrane, ear canal and external ear normal. There is no impacted cerumen. Left Ear: Tympanic membrane, ear canal and external ear normal. There is no impacted cerumen. Nose: Congestion and rhinorrhea present. Comments: Right nare eroded, purple in color Mouth/Throat: Pharynx: Oropharyngeal exudate present. No posterior oropharyngeal erythema. Cardiovascular: Rate and Rhythm: Normal rate and regular rhythm. Pulses: Normal pulses. Heart sounds: Normal heart sounds. Pulmonary: Effort: Pulmonary effort is normal. Breath sounds: Normal breath sounds. Abdominal: General: Bowel sounds are normal. Palpations: Abdomen is soft. Musculoskeletal: General: Normal range of motion. Right lower leg: No edema. Left lower leg: No edema. Comments: Moves all ext. And walks w/o assistive device Skin: General: Skin is warm and dry. Neurological: Mental Status: She is alert and oriented to person, place, and time. LABS: ASSESSMENT/PLAN: 1. Chronic maxillary sinusitis - ICD9: 473.0, ICD10: J32.0 (primary diagnosis) - Will begin treatment with Augmentin 875 mg PO BID for 10 days - AMOXICILLIN 875 MG-POTASSIUM CLAVULANATE 125 MG TABLET 2. Trigeminal neuralgia - ICD9: 350.1, ICD10: G50.0 Start gabapentin, did not want (more content not included)... [facility] 02-09-2025 History of Presen t illness Narrative This is a 34 year old female who presents today with: Patient presents with: Follow Up HISTORY OF PRESENT ILLNESS: Macey Campbell is a 34 year old female. Patient presents with: Follow Up Facial pain right cheek. Achy- some sharp. Did not fill tegretol. Some sinusitis. /10. Some sharp periods that may last up to 10 min. Some family Hx of nerve trouble. Pressing on her right cheek aggravates it. Tobacco use. No further chest pain or ABDOMINAL PAIN/. No gall stones. Aware of hepatic steatosis. PAST MEDICAL HISTORY: PAST MEDICAL HISTORY Diagnosis Date GERD without esophagitis 12/31/2021 Obesity, Class I, BMI 30-34.9 12/31/2021 PCOS (polycystic ovarian syndrome) Tobacco use disorder 12/31/2021 PAST SURGICAL HISTORY Procedure Laterality Date COLONOSCOPY SCREENING 02/08/2024 EGD W/O BRSH SPEC VARICIES INJ 02/08/2024 LAPS ABD PRTM&OMENTUM DX W/WO SPEC BR/WA SPX 2014 Laparoscopy - for r/o endometriosis, foung to have a cyst PT ED OBSTETRICS & GYNECOLOGY N/A 12/2019 laparoscopic hysterectomy - for endometriosis - Dr. Shelley REMOVAL OF OVARY(S) Right 10/24/2020 ovarian torsion REMOVAL OF OVARY(S) Left 12/2020 Dr Jo SALPINGECTOMY Right 12/27/2016 laparoscopic Right salpingectomy- ECTOPIC ALLERGIES Cleocin [Clindamycin] and Sulfa (Sulfonamide Antibiotics) MEDICATIONS Current Outpatient Medications Medication Sig rizatriptan (MAXALT ARMORING MACHINE OPERATOR) 10 mg disintegrating tablet Take 1 tablet (10 mg) by mouth as needed. May repeat in 2 hours if needed metFORMIN ER (GLUCOPHAGE XR) 500 mg 24 hr tablet Take 1 tablet by mouth daily with breakfast. spironolactone (ALDACTONE) 50 mg tablet Take 1 tablet by mouth two times a day. omeprazole (PRILOSEC) 40 mg capsule Take 1 capsule by mouth once daily. amitriptyline (ELAVIL) 10 mg tablet Take 1 tablet by mouth daily at bedtime. estradiol (ESTRACE) 1 mg tablet rosuvastatin (CRESTOR) 5 mg tablet Take 2 tablets by mouth daily at bedtime. No current facility-administered medications for this visit. FAMILY HISTORY Problem Relation Age of Onset Cervical Cancer Mother other (breast cyst [Other]) Mother Hyperlipidemia Father Hypertension Father other (sepsis) Father (after ruptured appe and another surgical complication where bowel was perforated during [place]). No Known Problems Sister No Known Problems Sister ADD/ADHD Brother Depression Brother ADD/ADHD Brother Stroke Maternal Grandmother No Known Problems Maternal Grandfather Hypertension Paternal Grandmother Hyperlipidemia Paternal Grandmother Skin Cancer Paternal Grandmother other (ewings sarcoma) Paternal Grandmother Hypertension Paternal Grandfather Heart Attack Paternal Grandfather Diabetes Paternal Grandfather Hyperlipidemia Paternal Grandfather COPD Paternal Grandfather ADD/ADHD Son Social History Tobacco Use Smoking status: Every Day Current packs/day: 0.50 Average packs/day: 0.5 packs/day for 15.0 years (7.5 ttl pk-yrs) Types: Cigarettes Smokeless tobacco: Never Vaping Use Vaping status: Never Used Substance Use Topics Alcohol use: Yes Alcohol/week: 1.0 standard drink of alcohol Types: 1 Glasses of Wine (5oz) per week Comment: Social Drug use: No EXAM: BP 110/76 Pulse 89 Temp 36.3 C (97.4 F) (Left Tympanic) Wt 81.2 kg (179 lb) LMP 08/04/2016 SpO2 99% BMI 31.71 kg/m PHYSICAL EXAM: Physical Exam Vitals reviewed. Constitutional: Appearance: Normal appearance. HENT: Head: Normocephalic. Right Ear: Tympanic membrane, ear canal and external ear normal. There is no impacted cerumen. Left Ear: Tympanic membrane, ear canal and external ear normal. There is no impacted cerumen. Nose: Congestion and rhinorrhea present. Comments: Right nare eroded, purple in color Mouth/Throat: Pharynx: Oropharyngeal exudate present. No posterior oropharyngeal erythema. Cardiovascular: Rate and Rhythm: Normal rate and regular rhythm. Pulses: Normal pulses. Heart sounds: Normal heart sounds. Pulmonary: Effort: Pulmonary effort is normal. Breath sounds: Normal breath sounds. Abdominal: General: Bowel sounds are normal. Palpations: Abdomen is soft. Musculoskeletal: General: Normal range of motion. Right lower leg: No edema. Left lower leg: No edema. Comments: Moves all ext. And walks w/o assistive device Skin: General: Skin is warm and dry. Neurological: Mental Status: She is alert and oriented to person, place, and time. LABS: ASSESSMENT/PLAN: 1. Chronic maxillary sinusitis - ICD9: 473.0, ICD10: J32.0 (primary diagnosis) - Will begin treatment with Augmentin 875 mg PO BID for 10 days - AMOXICILLIN 875 MG-POTASSIUM CLAVULANATE 125 MG TABLET 2. Trigeminal neuralgia - ICD9: 350.1, ICD10: G50.0 Start gabapentin, did not want to take tegretol - GABAPENTIN 300 MG CAPSULE 3. Hepatic steatosis - ICD9: 571.8, ICD10: K76.0 Aware, educated on restricting ETOH and following low fat diet 4. Tobacco abuse - ICD9: 305.1, ICD10: Z72.0 - Cessation encouraged. - Physiologic and physical aspects of tobacco addiction as well as strategies for quitting were discussed. - Counseling was given focusing on the harmful effects of this addiction especially given the patient's medical condition(s) which will be worsened because of the chemicals in tobacco. Discussed treatment plan and patient voices understanding. Patient's questions answered appropriately. Medications and potential side effects were discussed and patient voices understanding. Return to the office as scheduled or as needed for worsening/no improvement. Syl Tai APRN.ESSIE documented in this encounter [facility] 02-03-2025 History of Presen t illness Narrative Episode Visit Count: 4 Therapist That Will Accept/Oversee The Plan Of Care: Macey Kaiser Start of Care Date: 01/09/25 Onset Date: 04/11/24 Plan of Care Certification Date: 01/09/25 Next Certification Due Date: 02/20/25 Patient Identified by Name and Date of : Yes REHABILITATION AND SPORTS THERAPY PHYSICAL THERAPY TREATMENT NOTE ASSESSMENT: Macey Campbell tolerated the session with fatigue and expected muscle soreness. She demonstrated difficulty with L SLS activities due to hip being flared up from work. The patient will continue to benefit from ongoing skilled physical therapy to progress toward set goals. PLAN FOR NEXT VISIT: Asses response to GTB with prone hip IR. 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 Pain: Pain Pain Level: 5 Pain Location: Hip - Left Description: Aching Post Treatment Pain Post Treatment Pain Level: Worse Post Treatment Pain Location: Hip - Left OBJECTIVE MEASURES WITH LEVEL OF FUNCTION: TREATMENT: Therapeutic Exercise: 1: seat 13, scifit stepper, level 2, 1:1 throughout, subjective collected 5 min (sharp pain (9/10) with moving LLE laterally getting off of the bike) 2: prone hip ext 4x10 each LE 3: prone BLE hip IR, knees together 4x15 with GTB 4: Quadruped hipe ER 4x10 LLE only 5: Standing hip abduction 4x10 Skilled Intervention: Patient was educated in proper exercise technique and purpose for exercises. Skilled judgment was used in selection of appropriate interventions. Correct performance of therapeutic exercises was facilitated with verbal and visual cuing. Neuromuscular Re-Education: 1: BOSU lateral step ups 2x10 B 2: BOSU step ups 2x20 each LE lead, no UE support, slow tempo 3: SLS on foam with occasional tap on // bars 3x30 seconds 4: L SLS hip stability A-Z x 1 Skilled Intervention: Skilled judgment used to assess appropriate program for balance and coordination activity. Billing Therapeutic Exercise Treatment Minutes: 25 Neuromuscular Re-Education Treatment Minutes: 16 Skilled Treatment Time Minutes (timed and untimed codes): 41 Total Session Time (minutes): 41 Session Start Time : 1011 Session Stop Time : 1052 WEI Bush PT documented in this encounter [facility] 02-03-2025 Note HNO ID: [id number] Author: MACEY KAISER PT Service: ? Author Type: Physical Therapist Type: Progress Notes Filed: 02/03/2025 11:07 Note Text: Episode Visit Count: 4 Therapist That Will Accept/Oversee The Plan Of Care: Macey Kaiser Start of Care Date: 01/09/25 Onset Date: 04/11/24 Plan of Care Certification Date: 01/09/25 Next Certification Due Date: 02/20/25 Patient Identified by Name and Date of : Yes REHABILITATION AND SPORTS THERAPY PHYSICAL THERAPY TREATMENT NOTE ASSESSMENT: Macey Campbell tolerated the session with fatigue and expected muscle soreness. She demonstrated difficulty with L SLS activities due to hip being flared up from work. The patient will continue to benefit from ongoing skilled physical therapy to progress toward set goals. PLAN FOR NEXT VISIT: Asses response to GTB with prone hip IR. 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 Pain: Pain Pain Level: 5 Pain Location: Hip - Left Description: Aching Post Treatment Pain Post Treatment Pain Level: Worse Post Treatment Pain Location: Hip - Left OBJECTIVE MEASURES WITH LEVEL OF FUNCTION: TREATMENT: Therapeutic Exercise: 1: seat 13, scifit stepper, level 2, 1:1 throughout, subjective collected 5 min (sharp pain (9/10) with moving LLE laterally getting off of the bike) 2: prone hip ext 4x10 each LE 3: prone BLE hip IR, knees together 4x15 with GTB 4: Quadruped hipe ER 4x10 LLE only 5: Standing hip abduction 4x10 Skilled Intervention: Patient was educated in proper exercise technique and purpose for exercises. Skilled judgment was used in selection of appropriate interventions. Correct performance of therapeutic exercises was facilitated with verbal and visual cuing. Neuromuscular Re-Education: 1: BOSU lateral step ups 2x10 B 2: BOSU step ups 2x20 each LE lead, no UE support, slow tempo 3: SLS on foam with occasional tap on // bars 3x30 seconds 4: L SLS hip stability A-Z x 1 Skilled Intervention: Skilled judgment used to assess appropriate program for balance and coordination activity. Billing Therapeutic Exercise Treatment Minutes: 25 Neuromuscular Re-Education Treatment Minutes: 16 Skilled Treatment Time Minutes (timed and untimed codes): 41 Total Session Time (minutes): 41 Session Start Time : 1011 Session Stop Time : 1052 Nila Gomez, HANDLE LATHE OPERATOR Macey Kaiser, PT [facility] 01-26-2025 Telephone encounter Note Pt returned call and given provider's message below with verbalized understanding. Pt states she will call back to schedule with neurology [facility] 01-26-2025 Miscellaneous Notes Pt returned call and given provider's message below with verbalized understanding. Pt states she will call back to schedule with neurology Message left for patient to return call to review provider's message. Alexa Fulton LPN ----- Message from Syl Tai sent at 01/26/2025 3:14 PM EDT ----- CT of the head was normal. I will refer you to neurology. CT of the head was normal. I will refer you to neurology. documented in this encounter [facility] 01-26-2025 Telephone encounter Note Message left for patient to return call to review provider's message. Alexa Fulton LPN [facility] 01-26-2025 Telephone encounter Note ----- Message from Syl Tai sent at 01/26/2025 3:14 PM EDT ----- CT of the head was normal. I will refer you to neurology. [facility] 01-26-2025 Progress note Formatting of t his note might be different from the original. CT of the head was normal. I will refer you to neurology. [facility] 01-26-2025 History of Presen t illness Narrative Radiology Service Progress Note PATIENT NAME: Macey Campbell DATE OF SERVICE: January 26, 2025 TIME: 2:31 PM PATIENT IDENTITY VERIFICATION COMPLETED USING TWO (2) IDENTIFIERS: Name and Date of confirmed by patient verbally. FALL SCREENING: Has the patient had 2 falls in the last year or 1 fall with injury or currently using an Ambulatory Assistive Device (Walker, Cane, Wheelchair, Crutches, etc.)? Yes, Patient High Risk for Falls What interventions were put in place to prevent falls during this visit? Non-Skid Socks Used PATIENT GENDER DATA: Assigned female at . status: : No status: NO. PATIENT RELEVANT IMPLANT DATA REVIEWED: Yes PATIENT PRESENTS WITH AN IMPLANTABLE OR ATTACHED CLINICAL RESEARCH SPEC: No RADIOLOGY DEPARTMENT: CT; Exam(s) Completed: Brain PERIPHERAL IV DATA: Not applicable SIGNED BY: RT Jr(R) January 26, 2025 2:31 PM documented in this encounter [facility] 01-26-2025 Note HNO ID: [id number] Author: BIGG MESA RT(R) Service: ? Author Type: Manager Contracting Type: Progress Notes Filed: 01/26/2025 14:31 Note Text: Radiology Service Progress Note PATIENT NAME: Macey Campbell DATE OF SERVICE: January 26, 2025 TIME: 2:31 PM PATIENT IDENTITY VERIFICATION COMPLETED USING TWO (2) IDENTIFIERS: Name and Date of confirmed by patient verbally. FALL SCREENING: Has the patient had 2 falls in the last year or 1 fall with injury or currently using an Ambulatory Assistive Device (Walker, Cane, Wheelchair, Crutches, etc.)? Yes, Patient High Risk for Falls What interventions were put in place to prevent falls during this visit? Non-Skid Socks Used PATIENT GENDER DATA: Assigned female at . status: : No status: NO. PATIENT RELEVANT IMPLANT DATA REVIEWED: Yes PATIENT PRESENTS WITH AN IMPLANTABLE OR ATTACHED CLINICAL RESEARCH SPEC: No RADIOLOGY DEPARTMENT: CT; Exam(s) Completed: Brain PERIPHERAL IV DATA: Not applicable SIGNED BY: RT Jr(R) January 26, 2025 2:31 PM [facility] 01-24-2025 Note HNO ID: [id number] Author: MACEY KAISER PT Service: ? Author Type: Physical Therapist Type: Progress Notes Filed: 01/24/2025 08:56 Note Text: Episode Visit Count: 3 Therapist That Will Accept/Oversee The Plan Of Care: Macey Kaiser Start of Care Date: 01/09/25 Onset Date: 04/11/24 Plan of Care Certification Date: 01/09/25 Next Certification Due Date: 02/20/25 Patient Identified by Name and Date of : Yes REHABILITATION AND SPORTS THERAPY PHYSICAL THERAPY TREATMENT NOTE ASSESSMENT: Macey Campbell tolerated the session with fatigue and expected muscle soreness. She demonstrated improvements in tolerance to exercise. The patient will continue to benefit from ongoing skilled physical therapy to progress toward set goals. PLAN FOR NEXT VISIT: Add resistance band to hip IR SUBJECTIVE: Pt reports that she feels okay today. 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 Pain: Pain Pain Level: 5 Pain Location: Hip - Left Frequency: At rest Post Treatment Pain Post Treatment Pain Level: No Change Post Treatment Pain Location: Hip - Left Post Treatment Pain Description: Aching OBJECTIVE MEASURES WITH LEVEL OF FUNCTION: TREATMENT: Therapeutic Exercise: 1: seat 13, scifit stepper, level 2, 1:1 throughout, subjective collected 5 min 2: prone glute sets 2x10 3: prone hip ext 4x10 each LE 4: prone BLE hip IR, knees together 4x15 Skilled Intervention: Patient was educated in proper exercise technique and purpose for exercises. Skilled judgment was used in selection of appropriate interventions. Correct performance of therapeutic exercises was facilitated with verbal and visual cuing. Neuromuscular Re-Education: 1: BOSU step ups 2x20 each LE lead, no UE support, slow tempo 2: BOSU lateral step ups 2x10 B Skilled Intervention: Skilled judgment used to assess appropriate program for balance and coordination activity. Billing Therapeutic Exercise Treatment Minutes: 28 Neuromuscular Re-Education Treatment Minutes: 10 Skilled Treatment Time Minutes (timed and untimed codes): 38 Total Session Time (minutes): 38 Session Start Time : 0756 Session Stop Time : 0834 Nila Gomez, HANDLE LATHE OPERATOR Macey Kaiser, PT [facility] 01-24-2025 History of Presen t illness Narrative Episode Visit Count: 3 Therapist That Will Accept/Oversee The Plan Of Care: Macey Kaiser Start of Care Date: 01/09/25 Onset Date: 04/11/24 Plan of Care Certification Date: 01/09/25 Next Certification Due Date: 02/20/25 Patient Identified by Name and Date of : Yes REHABILITATION AND SPORTS THERAPY PHYSICAL THERAPY TREATMENT NOTE ASSESSMENT: Macey Campbell tolerated the session with fatigue and expected muscle soreness. She demonstrated improvements in tolerance to exercise. The patient will continue to benefit from ongoing skilled physical therapy to progress toward set goals. PLAN FOR NEXT VISIT: Add resistance band to hip IR SUBJECTIVE: Pt reports that she feels okay today. 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 Pain: Pain Pain Level: 5 Pain Location: Hip - Left Frequency: At rest Post Treatment Pain Post Treatment Pain Level: No Change Post Treatment Pain Location: Hip - Left Post Treatment Pain Description: Aching OBJECTIVE MEASURES WITH LEVEL OF FUNCTION: TREATMENT: Therapeutic Exercise: 1: seat 13, scifit stepper, level 2, 1:1 throughout, subjective collected 5 min 2: prone glute sets 2x10 3: prone hip ext 4x10 each LE 4: prone BLE hip IR, knees together 4x15 Skilled Intervention: Patient was educated in proper exercise technique and purpose for exercises. Skilled judgment was used in selection of appropriate interventions. Correct performance of therapeutic exercises was facilitated with verbal and visual cuing. Neuromuscular Re-Education: 1: BOSU step ups 2x20 each LE lead, no UE support, slow tempo 2: BOSU lateral step ups 2x10 B Skilled Intervention: Skilled judgment used to assess appropriate program for balance and coordination activity. Billing Therapeutic Exercise Treatment Minutes: 28 Neuromuscular Re-Education Treatment Minutes: 10 Skilled Treatment Time Minutes (timed and untimed codes): 38 Total Session Time (minutes): 38 Session Start Time : 0756 Session Stop Time : 0834 WEI Bush PT documented in this encounter [facility] 01-19-2025 History of Presen t illness Narrative Radiology Service Progress Note PATIENT NAME: Macey Campbell DATE OF SERVICE: January 19, 2025 TIME: 7:41 AM PATIENT IDENTITY VERIFICATION COMPLETED USING TWO (2) IDENTIFIERS: Name and Date of confirmed by patient verbally. FALL SCREENING: Has the patient had 2 falls in the last year or 1 fall with injury or currently using an Ambulatory Assistive Device (Walker, Cane, Wheelchair, Crutches, etc.)? No PATIENT GENDER DATA: Assigned female at . status: : No status: NO. PATIENT RELEVANT IMPLANT DATA REVIEWED: Not Applicable PATIENT PRESENTS WITH AN IMPLANTABLE OR ATTACHED CLINICAL RESEARCH SPEC: No RADIOLOGY DEPARTMENT: Ultrasound PERIPHERAL IV DATA: Not applicable SIGNED BY: Dhara Jackson RDMS January 19, 2025 7:41 AM documented in this encounter [facility] 01-19-2025 Note HNO ID: [id number] Author: DHARA JACKSON RDMS Service: ? Author Type: Manager Contracting Type: Progress Notes Filed: 01/19/2025 07:41 Note Text: Radiology Service Progress Note PATIENT NAME: Macey Campbell DATE OF SERVICE: January 19, 2025 TIME: 7:41 AM PATIENT IDENTITY VERIFICATION COMPLETED USING TWO (2) IDENTIFIERS: Name and Date of confirmed by patient verbally. FALL SCREENING: Has the patient had 2 falls in the last year or 1 fall with injury or currently using an Ambulatory Assistive Device (Walker, Cane, Wheelchair, Crutches, etc.)? No PATIENT GENDER DATA: Assigned female at . status: : No status: NO. PATIENT RELEVANT IMPLANT DATA REVIEWED: Not Applicable PATIENT PRESENTS WITH AN IMPLANTABLE OR ATTACHED CLINICAL RESEARCH SPEC: No RADIOLOGY DEPARTMENT: Ultrasound PERIPHERAL IV DATA: Not applicable SIGNED BY: Dhara Jackson RDMS January 19, 2025 7:41 AM [facility] 01-17-2025 History of Presen t illness Narrative Program_ID:[id number] Access Code: [email or web address] URL: [email or web address] Date: 01-17-2025 Prepared By: Long [place] Program Notes Exercises - Prone Gluteal Sets - 1 x daily - 7 x weekly - 4 sets - 10 reps - Prone Hip Extension - 1 x daily - 7 x weekly - 4 sets - 10 reps - Prone Hip Internal Rotation AROM - 1 x daily - 7 x weekly - 4 sets - 15 reps - Clamshell - 1 x daily - 7 x weekly - 2 sets - 15 reps - Supine Lower Trunk Rotation - 1 x daily - 7 x weekly - 2 sets - 20 reps Episode Visit Count: 2 Therapist That Will Accept/Oversee The Plan Of Care: Macey Kaiser Start of Care Date: 01/09/25 Onset Date: 04/11/24 Plan of Care Certification Date: 01/09/25 Next Certification Due Date: 02/20/25 REHABILITATION AND SPORTS THERAPY PHYSICAL THERAPY TREATMENT NOTE ASSESSMENT: Macey Sharon Campbell tolerated the session with increased symptoms. She demonstrated improvements in hip extension AROM as compared to initial evaluation. The patient will continue to benefit from ongoing skilled physical therapy to progress toward set goals. PLAN FOR NEXT VISIT: assess symptom response to hip AROM in prone SUBJECTIVE: Pt. was up and down a step stool today. HEP ok, but the hip abduction was difficult to do with too wide of a belt. Pt. is not sure in the injection was helpful. Patient Goals: reduce L hip pain, walk up hill, 30 min of ambulation in the community without increased symptoms Pain: Pain Pain Level: 8 Pain Location: Hip - Left Frequency: At rest Post Treatment Pain Post Treatment Pain Level: No Change Post Treatment Pain Location: Hip - Left Post Treatment Pain Description: Aching OBJECTIVE MEASURES WITH LEVEL OF FUNCTION: LE Strength R Hip Extension: 3/5 L Hip Extension: 3/5 TREATMENT: Therapeutic Exercise: 1: seat 13, scifit stepper, level 2, 1:1 throughout, subjective collected 5 min 2: prone glute sets 2x10 3: prone hip ext 4x10 each LE 4: SL clamshells 2x15 each side 5: prone BLE hip IR, knees together 4x15 Skilled Intervention: Patient was educated in proper exercise technique and purpose for exercises. Skilled judgment was used in selection of appropriate interventions. Provided written instruction for home exercise program to facilitate proper performance and compliance. Correct performance of therapeutic exercises was facilitated with verbal, visual, and tactile cuing. Educated patient on rationale for performing exercises in regards to decreasing fatigue , including balance, increase ease of ADL, and ROM and function . Patient education as noted. Neuromuscular Re-Education: 1: alt marches on foam- slow, 4x 60 sec intervals 2: SLS on foam max effort to 30 sec each LE 3x no UE support 3: SLS on foam hip ABC's A-Z each side no UE support 4: BOSU step ups 2x20 each LE lead, no UE support, slow tempo Skilled Intervention: Skilled judgment used to assess appropriate program for balance and coordination activity. Education in proprioceptive/kinesthetic awareness during dynamic activities. Ensured patient safety with use of // bars within reach. Reviewed and educated patient on additions/changes for home program as noted above with an (*). Patient education as noted. Billing Therapeutic Exercise Treatment Minutes: 24 Neuromuscular Re-Education Treatment Minutes: 16 Skilled Treatment Time Minutes (timed and untimed codes): 40 Total Session Time (minutes): 40 Session Start Time : 1706 Session Stop Time : 1746 Macey Kaiser PT documented in this encounter [facility] 01-17-2025 Note HNO ID: [id number] Author: MACEY KAISER PT Service: ? Author Type: Physical Therapist Type: Progress Notes Filed: 01/17/2025 17:50 Note Text: Episode Visit Count: 2 Therapist That Will Accept/Oversee The Plan Of Care: Macey Kaiser Start of Care Date: 01/09/25 Onset Date: 04/11/24 Plan of Care Certification Date: 01/09/25 Next Certification Due Date: 02/20/25 REHABILITATION AND SPORTS THERAPY PHYSICAL THERAPY TREATMENT NOTE ASSESSMENT: Macey Campbell tolerated the session with increased symptoms. She demonstrated improvements in hip extension AROM as compared to initial evaluation. The patient will continue to benefit from ongoing skilled physical therapy to progress toward set goals. PLAN FOR NEXT VISIT: assess symptom response to hip AROM in prone SUBJECTIVE: Pt. was up and down a step stool today. HEP ok, but the hip abduction was difficult to do with too wide of a belt. Pt. is not sure in the injection was helpful. Patient Goals: reduce L hip pain, walk up hill, 30 min of ambulation in the community without increased symptoms Pain: Pain Pain Level: 8 Pain Location: Hip - Left Frequency: At rest Post Treatment Pain Post Treatment Pain Level: No Change Post Treatment Pain Location: Hip - Left Post Treatment Pain Description: Aching OBJECTIVE MEASURES WITH LEVEL OF FUNCTION: LE Strength R Hip Extension: 3/5 L Hip Extension: 3/5 TREATMENT: Therapeutic Exercise: 1: seat 13, scifit stepper, level 2, 1:1 throughout, subjective collected 5 min 2: prone glute sets 2x10 3: prone hip ext 4x10 each LE 4: SL clamshells 2x15 each side 5: prone BLE hip IR, knees together 4x15 Skilled Intervention: Patient was educated in proper exercise technique and purpose for exercises. Skilled judgment was used in selection of appropriate interventions. Provided written instruction for home exercise program to facilitate proper performance and compliance. Correct performance of therapeutic exercises was facilitated with verbal, visual, and tactile cuing. Educated patient on rationale for performing exercises in regards to decreasing fatigue , including balance, increase ease of ADL, and ROM and function . Patient education as noted. Neuromuscular Re-Education: 1: alt marches on foam- slow, 4x 60 sec intervals 2: SLS on foam max effort to 30 sec each LE 3x no UE support 3: SLS on foam hip ABC's A-Z each side no UE support 4: BOSU step ups 2x20 each LE lead, no UE support, slow tempo Skilled Intervention: Skilled judgment used to assess appropriate program for balance and coordination activity. Education in proprioceptive/kinesthetic awareness during dynamic activities. Ensured patient safety with use of // bars within reach. Reviewed and educated patient on additions/changes for home program as noted above with an (*). Patient education as noted. Billing Therapeutic Exercise Treatment Minutes: 24 Neuromuscular Re-Education Treatment Minutes: 16 Skilled Treatment Time Minutes (timed and untimed codes): 40 Total Session Time (minutes): 40 Session Start Time : 1706 Session Stop Time : 174 Macey Kaiser, PT [facility] 01-12-2025 Telephone encounter Note Patient was in the emergency room on January 11, 2025 for right-sided facial pain and right sided chest pressure that began an hour to an hour and a half ago. Sharp lancing pain in the right lower face that started first. Not constant. Happens intermittently. Chest pressure right side of her chest radiating up towards her shoulder. She was nauseated but had not vomited. No pleuritic component, no leg swelling. Blood pressure 123/90, heart rate 108, respiratory rate 16, afebrile EKG showed normal sinus rhythm without ectopy or ST changes. No ST elevation myocardial infarction. Chest x-ray showed no acute process, no pneumonia, no pneumothorax. WBC 21.3, hemoglobin 14.5, hematocrit 43.1, platelet count 429 Absolute neutrophils 11.8 D-dimer less than 0.27 Sodium 138, potassium 4.0, BUN 18, creatinine 0.77, glucose 101 GFR 102 Troponin twice less than 6 Patient discharged on carbamazepine 100 mg every 12 hours [facility] 01-12-2025 Miscellaneous Notes Patient was in the emergency room on January 11, 2025 for right-sided facial pain and right sided chest pressure that began an hour to an hour and a half ago. Sharp lancing pain in the right lower face that started first. Not constant. Happens intermittently. Chest pressure right side of her chest radiating up towards her shoulder. She was nauseated but had not vomited. No pleuritic component, no leg swelling. Blood pressure 123/90, heart rate 108, respiratory rate 16, afebrile EKG showed normal sinus rhythm without ectopy or ST changes. No ST elevation myocardial infarction. Chest x-ray showed no acute process, no pneumonia, no pneumothorax. WBC 21.3, hemoglobin 14.5, hematocrit 43.1, platelet count 429 Absolute neutrophils 11.8 D-dimer less than 0.27 Sodium 138, potassium 4.0, BUN 18, creatinine 0.77, glucose 101 GFR 102 Troponin twice less than 6 Patient discharged on carbamazepine 100 mg every 12 hours documented in this encounter [facility] 01-12-2025 Instructions Syl Tai APRN.CNP - 01/12/2025 11:23 AM EDT 1) CT head 2) Ultrasound RUQ 3) Avoid estrogen 4) Avoid NSAIDS 5) Follow up in 1 month documented in this encounter [facility] 01-12-2025 Note HNO ID: [id number] Author: SYL TAI APRN.CNP Service: ? Author Type: Nurse Practitioner Type: Progress Notes Filed: 01/12/2025 11:24 Note Text: This is a 34 year old female who presents today with: Patient presents with: ER F/U: [facility] 01/11/25 DX: Chest pain, facial pain, Trigeminal neuralgia, leukocytosis HISTORY OF PRESENT ILLNESS: Macey Campbell is a 34 year old female. Patient presents with: ER F/U: [facility] 01/11/25 DX: Chest pain, facial pain, Trigeminal neuralgia, leukocytosis Went to ER with RUQ and right facial pain Pain in RU abdomen and right side of face. Pain intermittent- was very sharp pressure that was severe, then into right upper abdomen/ lower right chest. Has been intermittent but not as severe. Not related to activity. Took antiacids and pepto-bismol. Continued to worsen- went toER Occurred a year ago Lasts about 5 hours. Nausea noted. Did not agree with ER in re: trigeminal neuralgia, did not fill Tegretol Pain in cheek to right lower jaw No headache No SOB No blurred or double vision Dizzy hours before No vomiting No diarrhea DM: Reports overall feeling well. Medication side effects: No. Home sugar checks: No Hypoglycemic spells: No. Watching diet: For the most part. Unexpected weight loss: No. Polyuria, polydipsia: No. Vision Changes: No. Foot lesions or numbness or pain: No. Has been sick on and off Just finished prednisone a couple days ago Smoker and on estrogen- hysterectomy PAST MEDICAL HISTORY: PAST MEDICAL HISTORY Diagnosis Date GERD without esophagitis 12/31/2021 Obesity, Class I, BMI 30-34.9 12/31/2021 PCOS (polycystic ovarian syndrome) Tobacco use disorder 12/31/2021 PAST SURGICAL HISTORY Procedure Laterality Date COLONOSCOPY SCREENING 02/08/2024 EGD W/O BRSH SPEC VARICIES INJ 02/08/2024 LAPS ABD PRTMANDOMENTUM DX W/WO SPEC BR/WA SPX 2014 Laparoscopy - for r/o endometriosis, foung to have a cyst PT ED OBSTETRICS AND GYNECOLOGY N/A 12/2019 laparoscopic hysterectomy - for endometriosis - Dr. Shelley REMOVAL OF OVARY(S) Right 10/24/2020 ovarian torsion REMOVAL OF OVARY(S) Left 12/2020 Dr Jo SALPINGECTOMY Right 12/27/2016 laparoscopic Right salpingectomy- ECTOPIC ALLERGIES Cleocin [Clindamycin] and Sulfa (Sulfonamide Antibiotics) MEDICATIONS Current Outpatient Medications Medication Sig codeine-guaiFENesin (ROBITUSSIN AC) 10-100 mg/5 mL syrup Take 10 mL by mouth three times a day as needed for cough for up to 7 days. rizatriptan (MAXALT ARMORING MACHINE OPERATOR) 10 mg disintegrating tablet Take 1 tablet (10 mg) by mouth as needed. May repeat in 2 hours if needed metFORMIN ER (GLUCOPHAGE XR) 500 mg 24 hr tablet Take 1 tablet by mouth daily with breakfast. spironolactone (ALDACTONE) 50 mg tablet Take 1 tablet by mouth two times a day. omeprazole (PRILOSEC) 40 mg capsule Take 1 capsule by mouth once daily. rosuvastatin (CRESTOR) 5 mg tablet Take 2 tablets by mouth daily at bedtime. amitriptyline (ELAVIL) 10 mg tablet Take 1 tablet by mouth daily at bedtime. estradiol (ESTRACE) 1 mg tablet levoFLOXacin (LEVAQUIN) 750 mg tablet Take 1 tablet by mouth once daily for 7 days. No current facility-administered medications for this visit. FAMILY HISTORY Problem Relation Age of Onset Cervical Cancer Mother other (breast cyst [Other]) Mother Hyperlipidemia Father Hypertension Father other (sepsis) Father (after ruptured appe and another surgical complication where bowel was perforated during alexander). No Known Problems Sister No Known Problems Sister ADD/ADHD Brother Depression Brother ADD/ADHD Brother Stroke Maternal Grandmother No Known Problems Maternal Grandfather Hypertension Paternal Grandmother Hyperlipidemia Paternal Grandmother Skin Cancer Paternal Grandmother other (ewings sarcoma) Paternal Grandmother Hypertension Paternal Grandfather Heart Attack Paternal Grandfather Diabetes Paternal Grandfather Hyperlipidemia Paternal Grandfather COPD Paternal Grandfather ADD/ADHD Son Social History Tobacco Use Smoking status: Every Day Current packs/day: 0.50 Average packs/day: 0.5 packs/day for 15.0 years (7.5 ttl pk-yrs) Types: Cigarettes Smokeless tobacco: Never Vaping Use Vaping status: Never Used Substance Use Topics Alcohol use: Yes Alcohol/week: 1.0 standard drink of alcohol Types: 1 Glasses of Wine (5oz) per week Comment: Social Drug use: No EXAM: BP 110/70 Pulse 104 Temp 36.3 ?C (97.4 ?F) Wt 80.5 kg (177 lb 7.5 oz) LMP 08/04/2016 SpO2 98% BMI 31.44 kg/m? PHYSICAL EXAM: Physical Exam Vitals reviewed. Constitutional: Appearance: Normal appearance. HENT: Head: Normocephalic. Right Ear: Ear canal and external ear normal. There is no impacted cerumen. Left Ear: Ear canal and external ear normal. There is no impacted cerumen. Ears: Comments: TM bulging clear fluids- L>R Nose: Congestion and rhinorrhea present. Mouth/Th (more content not included)... [facility] 01-12-2025 History of Presen t illness Narrative This is a 34 year old female who presents today with: Patient presents with: ER F/U: [facility] 01/11/25 DX: Chest pain, facial pain, Trigeminal neuralgia, leukocytosis HISTORY OF PRESENT ILLNESS: Macey Campbell is a 34 year old female. Patient presents with: ER F/U: [facility] 01/11/25 DX: Chest pain, facial pain, Trigeminal neuralgia, leukocytosis Went to ER with RUQ and right facial pain Pain in RU abdomen and right side of face. Pain intermittent- was very sharp pressure that was severe, then into right upper abdomen/ lower right chest. Has been intermittent but not as severe. Not related to activity. Took antiacids and pepto-bismol. Continued to worsen- went toER Occurred a year ago Lasts about 5 hours. Nausea noted. Did not agree with ER in re: trigeminal neuralgia, did not fill Tegretol Pain in cheek to right lower jaw No headache No SOB No blurred or double vision Dizzy hours before No vomiting No diarrhea DM: Reports overall feeling well. Medication side effects: No. Home sugar checks: No Hypoglycemic spells: No. Watching diet: For the most part. Unexpected weight loss: No. Polyuria, polydipsia: No. Vision Changes: No. Foot lesions or numbness or pain: No. Has been sick on and off Just finished prednisone a couple days ago Smoker and on estrogen- hysterectomy PAST MEDICAL HISTORY: PAST MEDICAL HISTORY Diagnosis Date GERD without esophagitis 12/31/2021 Obesity, Class I, BMI 30-34.9 12/31/2021 PCOS (polycystic ovarian syndrome) Tobacco use disorder 12/31/2021 PAST SURGICAL HISTORY Procedure Laterality Date COLONOSCOPY SCREENING 02/08/2024 EGD W/O BRSH SPEC VARICIES INJ 02/08/2024 LAPS ABD PRTM&OMENTUM DX W/WO SPEC BR/WA SPX 2014 Laparoscopy - for r/o endometriosis, foung to have a cyst PT ED OBSTETRICS & GYNECOLOGY N/A 12/2019 laparoscopic hysterectomy - for endometriosis - Dr. Shelley REMOVAL OF OVARY(S) Right 10/24/2020 ovarian torsion REMOVAL OF OVARY(S) Left 12/2020 Dr Jo SALPINGECTOMY Right 12/27/2016 laparoscopic Right salpingectomy- ECTOPIC ALLERGIES Cleocin [Clindamycin] and Sulfa (Sulfonamide Antibiotics) MEDICATIONS Current Outpatient Medications Medication Sig codeine-guaiFENesin (ROBITUSSIN AC) 10-100 mg/5 mL syrup Take 10 mL by mouth three times a day as needed for cough for up to 7 days. rizatriptan (MAXALT ARMORING MACHINE OPERATOR) 10 mg disintegrating tablet Take 1 tablet (10 mg) by mouth as needed. May repeat in 2 hours if needed metFORMIN ER (GLUCOPHAGE XR) 500 mg 24 hr tablet Take 1 tablet by mouth daily with breakfast. spironolactone (ALDACTONE) 50 mg tablet Take 1 tablet by mouth two times a day. omeprazole (PRILOSEC) 40 mg capsule Take 1 capsule by mouth once daily. rosuvastatin (CRESTOR) 5 mg tablet Take 2 tablets by mouth daily at bedtime. amitriptyline (ELAVIL) 10 mg tablet Take 1 tablet by mouth daily at bedtime. estradiol (ESTRACE) 1 mg tablet levoFLOXacin (LEVAQUIN) 750 mg tablet Take 1 tablet by mouth once daily for 7 days. No current facility-administered medications for this visit. FAMILY HISTORY Problem Relation Age of Onset Cervical Cancer Mother other (breast cyst [Other]) Mother Hyperlipidemia Father Hypertension Father other (sepsis) Father (after ruptured appe and another surgical complication where bowel was perforated during alexander). No Known Problems Sister No Known Problems Sister ADD/ADHD Brother Depression Brother ADD/ADHD Brother Stroke Maternal Grandmother No Known Problems Maternal Grandfather Hypertension Paternal Grandmother Hyperlipidemia Paternal Grandmother Skin Cancer Paternal Grandmother other (ewings sarcoma) Paternal Grandmother Hypertension Paternal Grandfather Heart Attack Paternal Grandfather Diabetes Paternal Grandfather Hyperlipidemia Paternal Grandfather COPD Paternal Grandfather ADD/ADHD Son Social History Tobacco Use Smoking status: Every Day Current packs/day: 0.50 Average packs/day: 0.5 packs/day for 15.0 years (7.5 ttl pk-yrs) Types: Cigarettes Smokeless tobacco: Never Vaping Use Vaping status: Never Used Substance Use Topics Alcohol use: Yes Alcohol/week: 1.0 standard drink of alcohol Types: 1 Glasses of Wine (5oz) per week Comment: Social Drug use: No EXAM: BP 110/70 Pulse 104 Temp 36.3 C (97.4 F) Wt 80.5 kg (177 lb 7.5 oz) LMP 08/04/2016 SpO2 98% BMI 31.44 kg/m PHYSICAL EXAM: Physical Exam Vitals reviewed. Constitutional: Appearance: Normal appearance. HENT: Head: Normocephalic. Right Ear: Ear canal and external ear normal. There is no impacted cerumen. Left Ear: Ear canal and external ear normal. There is no impacted cerumen. Ears: Comments: TM bulging clear fluids- L>R Nose: Congestion and rhinorrhea present. Mouth/Throat: Pharynx: Oropharyngeal exudate present. No posterior oropharyngeal erythema. Eyes: Pupils: Pupils are equal, round, and reactive to light. Neck: Vascular: No carotid bruit. Cardiovascular: Rate and Rhythm: Normal rate and regular rhythm. Pulses: Normal pulses. Heart sounds: Normal heart sounds. Pulmonary: Effort: Pulmonary effort is normal. Breath sounds: Normal breath sounds. Abdominal: General: Bowel sounds are normal. Palpations: Abdomen is soft. Tenderness: There is no abdominal tenderness. There is no guarding or rebound. Musculoskeletal: General: Normal range of motion. Right lower leg: No edema. Left lower leg: No edema. Comments: Cranial nerves III- XII intact, no [id number] ataxia Walks w/o assistive device Lymphadenopathy: Cervical: No cervical adenopathy. Skin: General: Skin is warm and dry. Neurological: Mental Status: She is alert and oriented to person, place, and time. Comments: Cranial nerves III-XII intact, no [id number] ataxia LABS: ASSESSMENT/PLAN: 1. Leukocytosis, unspecified type - ICD9: 288.60, ICD10: D72.829 (primary diagnosis) Chronic in nature- possibly related to smoking, higher as pt. Just came off steroids for URI 2. Screening for depression - ICD9: V79.0, ICD10: Z13.31 Negative - DEPRESSION SCREENING 3. Right facial pain - ICD9: 784.0, ICD10: R51.9 - No NSAIDS - Check CT head - Avoid estrogen 4. RUQ pain - ICD9: 789.01, ICD10: R10.11 Etiology unclear - US ABD RIGHT UPPER QUADRANT 5. Atypical facial pain - ICD9: 350.2, ICD10: G50.[address], uncertain of cause- recurrent - CT BRAIN WO IVCON Discussed treatment plan and patient voices understanding. Patient's questions answered appropriately. Medications and potential side effects were discussed and patient voices understanding. Return to the office as scheduled or as needed for worsening/no improvement. Syl Tai APRN.FRANCHISE DEVELOPMENT MANAGER documented in this encounter [facility] 01-11-2025 Radiology Diagnostic study note [facility] Imaging Services [address] [place] [address] [id number] Chest 1 View (Portable) MR#: [id number] Acct: [id number] Name: MACEY CAMPBELL Rep #: [id number] : 1990 F 34 From: Joaquin Mccray DO PCP: ANGELITO Mccrary Status: REG E R Study:Chest 1 View (Portable) Date of Exam: 01/11/25 Exam# [id number] Ordering Dr: Raleigh Escoto MD PROCEDURE: Chest radiograph REASON FOR EXAM: CHEST PAIN TECHNIQUE: Frontal view of the chest. COMPARISON: 01/20/2024 FINDINGS: Cardiomediastinal silhouette is within normal limits. Lungs are clear. No sizable pneumothorax. RAD/Chest 1 View (Portable) IMPRESSION: No acute airspace abnormality. Reading Location: [facility] CC: ACCOUNTS PAYABLE TECHNICIAN-C Radha Garduno; Dr. Raleigh Escoto MD ~ Big Machine Consultant: Signed [facility] 01-09-2025 History of Presen t illness Narrative Program_ID:[id number] Access Code: [email or web address] URL: [email or web address] Date: 01-09-2025 Prepared By: [place] Program Notes Exercises - Supine Hip Adduction Isometric with Ball - 1 x daily - 7 x weekly - 3 sets - 10 reps - Supine Pelvic Floor Contraction with Hip Internal External Rotation - 1 x daily - 7 x weekly - 3 sets - 10 reps - cc Hip Isometric External Rotation Prone - 1 x daily - 7 x weekly - 3 sets - 10 reps - cc Hip Isometric Internal Rotation Prone - 1 x daily - 7 x weekly - 3 sets - 10 reps - Supine Hip Abduction with Resistance at Ankles - 1 x daily - 7 x weekly - 2 sets - 5 reps Images from the original note were not included. Episode Visit Count: 1 Therapist That Will Accept/Oversee The Plan Of Care: Macey Kaiser Start of Care Date: 01/09/25 Onset Date: 04/11/24 Plan of Care Certification Date: 01/09/25 Next Certification Due Date: 02/20/25 REHABILITATION AND SPORTS THERAPY PHYSICAL THERAPY EVALUATION PLAN OF CARE: Assessment: Macey Campbell presents with diagnosis of pain of left hip that interferes with squatting, stair negotiation, walking in the community, walking in the house, walking, standing, rising from a chair, sitting (worse with ascending steps) . The patient presents with impairments in ADL's, balance, flexibility, gait, independence in exercise, joint mobility, overall function, patient reported outcome measures, posture, range of motion, strength, and symptom management. PROMIS (Patient-Reported Outcomes Measurement Information System) scores were reviewed and identified as a rehabilitation concern. Prognosis for therapy is Fair due to: poor past response to therapy intervention . The patient will benefit from skilled therapy services to meet the goals established for this plan of care as noted below. Classification Pain Mechanism Classification: Nociceptive Low Back Pain Classification: Symptom Modulation Goals for Episode of Care: established 01/09/25 [place] in home exercise program. Patient will decrease pain to 1-2/10 with functional activities to allow patient to improve ambulation, transfers, and standing tolerance for ADLs. Patient will demonstrate increase in L hip flexion, abd, ER, and IR strength to 4/5 during manual muscle testing in order to improve function for prior functional tasks. Perform walking community distances with decreased report of symptoms/pain in 6 weeks. Normal gait. Reciprocal stair negotiation. Patient Goals: reduce L hip pain, walk up hill, 30 min of ambulation in the community without increased symptoms Time Frame for Goals and Treatment : 02/20/25 Planned Interventions, Frequency, and Duration: Current Frequency: 1x/week Duration: 6 weeks Total Number of Visits Planned: 6 Planned Treatment Interventions: Gait Training (66781), Self-mcfp management (19276), Therapeutic activities (73044), Manual therapy (55185), Neuromuscular re-education (00263), Therapeutic exercise (42723) PLAN FOR NEXT VISIT: assess symptom response to isometrics and resposne to injection 2 weeks post procedure Patient demonstrates good understanding of plan of care and treatment. The above goals and plan of care were discussed and agreed upon by patient/family. SUBJECTIVE: for L hip pain that onset last April without known injury. Pt. had injection 01/04/25 without any change in symptoms yet. Pt. had therapy Jun - Jul 2024 without symptom. Pt. took a break from her previous hip HEP exercises after no improvement of symtpoms. Pt. was informed that it would take a couple of weeks to notice any improvement from most recent injection. Denies LBP. Pt. went back to work today, she was off last week. Rest is the most effective, the more active she is the worse it gets. Pt. continues figure 4 piriformis stretch in supine when it feels tight. Pain radiates from the L buttock and wraps around to the L groin. Denies pain with laying on her back. No improvement with lumbar repeated extension exercises. 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 Cancer Clinical Reasoning: No identified risk factors. Infection Clinical Reasoning: No identified risk factors. Cauda Equina Syndrome Clinical Reasoning: No identified risk factors. Red Flags - Cervical Cancer Clinical Reasoning: No identified risk factors. Infection Clinical Reasoning: No identified risk factors. Pain: Pain Pain Level: 6 Pain Location: Hip - Left Frequency: At rest Post Treatment Pain Post Treatment Pain Level: No Change Post Treatment Pain Location: Hip - Left Post Treatment Pain Description: Aching PROMIS Scales 12/21/2024 10/27/2024 09/05/2024 Higher is Better Phys Func - T Score 35 (moderate dysfunction) 36 (moderate dysfunction) 36 (moderate dysfunction) Phys Func - Percentile 7 8 8 Self-Eff Symptom - T Score 39 (Low) Self-Eff Symptom - Percentile 14 T-scores: mean of general population = 50. 5 points is clinically meaningfully difference Percentiles provide an indication of how the patient's score ranks in relation to the general population. Higher percentile rankings indicate better function/quality of life. 50th percentile is the average of the general population and indicates half of respondents had a worse score. OBJECTIVE MEASURES WITH LEVEL OF FUNCTION: Sensation - Lower Extremity LE Light Touch Sensation: Grossly Intact Spine Observations L Lumbar Spine Palpation Tenderness: No tenderness noted (pt. denies feeling any particular areas of tenderness, none produced upon PT palpation) Sensation - Lumbar Sensation: Grossly Intact Lumbar Spine AROM Lumbar Flexion: Normal Lumbar Extension: Normal Lumbar R Side [place]: Minimal limitation (pulling felt along the L lateral hip) Lumbar L Side [place]: Normal Lumbar R Side-Bend: Normal Lumbar L Side-Bend: Normal Lumbar R Rotation: Normal Lumbar L Rotation: Minimal limitation (pulling felt along the L posterolateral hip) LE AROM L Hip Flexion: 108 Degrees L Hip ABduction : 20 Degrees L Hip Internal Rotation: 9 Degrees (supine 90 flexion) L Hip External Rotation: 25 Degrees (supine 90 degrees of flexion) LE Flexibility Flexibility: Hip External Rotation Flexibility, Hip Internal Rotation Flexibility, Hip Adductor, Hamstring Flexibility L Hamstring Flexibility: WNL L Adductor Flexibility: very limtied and guards L Hip Internal Rotation Flexibility: very limited and guards L Hip External Rotation Flexibility: very limited and guards LE Strength L Hip Extension: 2-/5 L Hip Flexion (L2): 2+/5 L Hip ABduction: 2-/5 L Hip External Rotation: 2/5 Special Tests - Hip and Spine Hip and Spine Special Tests: LIZETTE Test, FADDIR Test, Scour Test, Active SLR, SLR Test SLR Test: Left Negative LIZETTE Test: Left Positive FADDIR Test: Left Positive Scour Test: Left Positive Active SLR: Left Positive Gait Gait: Independent Gait Distance (feet): 50 Gait Device: None Gait Deviations: Left Lower Extremity Gait Deviations Left Lower Extremity: Stance time decreased, Lacks hip extension beyond mid-stance, Circumduction, Push off during terminal stance decreased, Heel strike during initial stance decreased Education: Education Learning Preferences: Demonstration, Explanation, Printed Materials, Performance Barriers: None Learning/educational needs: Home exercise program, Plan of Care, Posture, Gait Training Education Provided: Yes, see treatment interventions for education provided Education Provided To: Patient Education Mode/Type: Demonstration, Explanation/Discussion, Literature/Printed Materials, Performance Response to Education/Teach Back: States/Identifies, Return Demonstration TREATMENT: PT Treatment Interventions: Therapeutic Exercise, Self-Skilled Nursing Management Evaluation Therapeutic Exercise: 1: *Access Code: [email or web address] URL: [email or web address] Date: 01/09/2025 Prepared by: Macey Bynum Exercises - Supine Hip Adduction Isometric with Ball - 1 x daily - 7 x weekly - 3 sets - 10 reps - Supine Pelvic Floor Contraction with Hip Internal External Rotation - 1 x daily - 7 x weekly - 3 sets - 10 reps - cc Hip Isometric External Rotation Prone - 1 x daily - 7 x weekly - 3 sets - 10 reps - cc Hip Isometric Internal Rotation Prone - 1 x daily - 7 x weekly - 3 sets - 10 reps - Supine Hip Abduction with Resistance at Ankles - 1 x daily - 7 x weekly - 2 sets - 5 reps - 10 hold Skilled Intervention: Patient was educated in proper exercise technique and purpose for exercises. Skilled judgment was used in selection of appropriate interventions. Provided written instruction for home exercise program to facilitate proper performance and compliance. Correct performance of therapeutic exercises was facilitated with verbal, visual, and tactile cuing. Educated patient on rationale for performing exercises in regards to decreasing fatigue , increase ease of ADL, and ROM and function . Patient education as noted. Self-Skilled Nursing Management: 1: discussed purpose of isometrics 2: discussed plan to include core stabilization strengthening 3: discussed plan to include core stabilization strengthening due to the core and hip working together with functional movements Skilled Intervention: Skilled judgment in the selection of proper modification for activity of daily living/home management based on clinical presentation, deficits, and needs. Provided written instruction for activities of daily living techniques to facilitate proper performance and compliance. Reviewed patient specific diagnosis in relation to activities of daily living/home management. Activity progression based on professional judgement. Moderate verbal cues for maintaining neutral spine alignment. Provided both written and video instruction for home program to facilitate proper performance and compliance. Correct performance of home program was facilitated with verbal, visual, and tactile cueing. Billing * Evaluation Low Complexity: 1 Unit Therapeutic Exercise Treatment Minutes: 14 Self-Care/Home Management Treatment Minutes: 10 Skilled Treatment Time Minutes (timed and untimed codes): 44 Total Session Time (minutes): 44 Session Start Time : 1046 Session Stop Time : 1130 Macey Kaiser PT documented in this encounter [facility] 01-09-2025 Note HNO ID: [id number] Author: MACEY KAISER, PT Service: ? Author Type: Physical Therapist Type: Progress Notes Filed: 01/09/2025 11:34 Note Text: Episode Visit Count: 1 Therapist That Will Accept/Oversee The Plan Of Care: Macey Kaiser Start of Care Date: 01/09/25 Onset Date: 04/11/24 Plan of Care Certification Date: 01/09/25 Next Certification Due Date: 02/20/25 REHABILITATION AND SPORTS THERAPY PHYSICAL THERAPY EVALUATION PLAN OF CARE: Assessment: Macey Campbell presents with diagnosis of pain of left hip that interferes with squatting, stair negotiation, walking in the community, walking in the house, walking, standing, rising from a chair, sitting (worse with ascending steps) . The patient presents with impairments in ADL's, balance, flexibility, gait, independence in exercise, joint mobility, overall function, patient reported outcome measures, posture, range of motion, strength, and symptom management. PROMIS? (Patient-Reported Outcomes Measurement Information System) scores were reviewed and identified as a rehabilitation concern. Prognosis for therapy is Fair due to: poor past response to therapy intervention . The patient will benefit from skilled therapy services to meet the goals established for this plan of care as noted below. Classification Pain Mechanism Classification: Nociceptive Low Back Pain Classification: Symptom Modulation Goals for Episode of Care: established 01/09/25 [place] in home exercise program. Patient will decrease pain to 1-2/10 with functional activities to allow patient to improve ambulation, transfers, and standing tolerance for ADLs. Patient will demonstrate increase in L hip flexion, abd, ER, and IR strength to 4/5 during manual muscle testing in order to improve function for prior functional tasks. Perform walking community distances with decreased report of symptoms/pain in 6 weeks. Normal gait. Reciprocal stair negotiation. Patient Goals: reduce L hip pain, walk up hill, 30 min of ambulation in the community without increased symptoms Time Frame for Goals and Treatment : 02/20/25 Planned Interventions, Frequency, and Duration: Current Frequency: 1x/week Duration: 6 weeks Total Number of Visits Planned: 6 Planned Treatment Interventions: Gait Training (58120), Self-mcfp management (47843), Therapeutic activities (52151), Manual therapy (25371), Neuromuscular re-education (76885), Therapeutic exercise (98088) PLAN FOR NEXT VISIT: assess symptom response to isometrics and resposne to injection 2 weeks post procedure Patient demonstrates good understanding of plan of care and treatment. The above goals and plan of care were discussed and agreed upon by patient/family. SUBJECTIVE: for L hip pain that onset last April without known injury. Pt. had injection 01/04/25 without any change in symptoms yet. Pt. had therapy Jun - Jul 2024 without symptom. Pt. took a break from her previous hip HEP exercises after no improvement of symtpoms. Pt. was informed that it would take a couple of weeks to notice any improvement from most recent injection. Denies LBP. Pt. went back to work today, she was off last week. Rest is the most effective, the more active she is the worse it gets. Pt. continues figure 4 piriformis stretch in supine when it feels tight. Pain radiates from the L buttock and wraps around to the L groin. Denies pain with laying on her back. No improvement with lumbar repeated extension exercises. 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 Cancer Clinical Reasoning: No identified risk factors. Infection Clinical Reasoning: No identified risk factors. Cauda Equina Syndrome Clinical Reasoning: No identified risk factors. Red Flags - Cervical Cancer Clinical Reasoning: No identified risk factors. Infection Clinical Reasoning: No identified risk factors. Pain: Pain Pain Level: 6 Pain Location: Hip - Left Frequency: At rest Post Treatment Pain Post Treatment Pain Level: No Change Post Treatment Pain Location: Hip - Left Post Treatment Pain Description: Aching PROMIS Scales 12/21/2024 10/27/2024 09/05/2024 Higher is Better Phys Func - T Scor (more content not included)... [facility] 01-07-2025 Telephone encounter Note Patient was evaluated on 01/06/25. Will close this encounter. Siobhan Beltran RN [facility] 01-07-2025 Miscellaneous Notes Patient was evaluated on 01/06/25. Will close this encounter. Siobhan Beltran RN Isn't Radha out until Thursday.needs seen in office by one of the staff or UC documented in this encounter [facility] 01-06-2025 Instructions Ara Crawford APRN.ESSIE - 01/06/2025 7:52 AM EST Start Levaquin, take with food Start prednisone burst, 40 mg daily Recommend Mucinex D during the day May use codeine cough syrup at bed time Stay well hydrated Smoking cessation Follow up if no improvement. documented in this encounter [facility] 01-06-2025 History of Presen t illness Narrative This is a 34 year old female who presents today with: Patient presents with: Acute Visit: Lingering cough HISTORY OF PRESENT ILLNESS: Macey Campbell is a 34 year old female. Patient presents with: Acute Visit: Lingering cough Patient of Dr. Ballard here in the office for on going cough. Symptoms started in December, diagnosed with URI and seen again diagnosed with bronchitis. Chest x-ray was normal in November has been treated with doxycycline and Augmentin as well as prednisone taper. Refers that symptoms improve for about 1 week after antibiotic treatment but then returns. No wheezing or SOB. Cough is productive at times, post nasal drip. Refers that she coughs all night. Taking Nyquil and dayquil. Has tried Netipot for sinus congestion. Last weekend fever 102.4, no fevers since. Smoking 1/2 PPD PAST MEDICAL HISTORY: PAST MEDICAL HISTORY Diagnosis Date GERD without esophagitis 12/31/2021 Obesity, Class I, BMI 30-34.9 12/31/2021 PCOS (polycystic ovarian syndrome) Tobacco use disorder 12/31/2021 PAST SURGICAL HISTORY Procedure Laterality Date COLONOSCOPY SCREENING 02/08/2024 EGD W/O BRSH SPEC VARICIES INJ 02/08/2024 LAPS ABD PRTM&OMENTUM DX W/WO SPEC BR/WA SPX 2014 Laparoscopy - for r/o endometriosis, foung to have a cyst PT ED OBSTETRICS & GYNECOLOGY N/A 12/2019 laparoscopic hysterectomy - for endometriosis - Dr. Shelley REMOVAL OF OVARY(S) Right 10/24/2020 ovarian torsion REMOVAL OF OVARY(S) Left 12/2020 Dr Jo SALPINGECTOMY Right 12/27/2016 laparoscopic Right salpingectomy- ECTOPIC ALLERGIES Cleocin [Clindamycin] and Sulfa (Sulfonamide Antibiotics) MEDICATIONS Current Outpatient Medications Medication Sig rizatriptan (MAXALT ARMORING MACHINE OPERATOR) 10 mg disintegrating tablet Take 1 tablet (10 mg) by mouth as needed. May repeat in 2 hours if needed metFORMIN ER (GLUCOPHAGE XR) 500 mg 24 hr tablet Take 1 tablet by mouth daily with breakfast. spironolactone (ALDACTONE) 50 mg tablet Take 1 tablet by mouth two times a day. omeprazole (PRILOSEC) 40 mg capsule Take 1 capsule by mouth once daily. rosuvastatin (CRESTOR) 5 mg tablet Take 2 tablets by mouth daily at bedtime. amitriptyline (ELAVIL) 10 mg tablet Take 1 tablet by mouth daily at bedtime. estradiol (ESTRACE) 1 mg tablet No current facility-administered medications for this visit. FAMILY HISTORY Problem Relation Age of Onset Cervical Cancer Mother other (breast cyst [Other]) Mother Hyperlipidemia Father Hypertension Father other (sepsis) Father (after ruptured appe and another surgical complication where bowel was perforated during alexander). No Known Problems Sister No Known Problems Sister ADD/ADHD Brother Depression Brother ADD/ADHD Brother Stroke Maternal Grandmother No Known Problems Maternal Grandfather Hypertension Paternal Grandmother Hyperlipidemia Paternal Grandmother Skin Cancer Paternal Grandmother other (ewings sarcoma) Paternal Grandmother Hypertension Paternal Grandfather Heart Attack Paternal Grandfather Diabetes Paternal Grandfather Hyperlipidemia Paternal Grandfather COPD Paternal Grandfather ADD/ADHD Son Social History Tobacco Use Smoking status: Every Day Current packs/day: 0.50 Average packs/day: 0.5 packs/day for 15.0 years (7.5 ttl pk-yrs) Types: Cigarettes Smokeless tobacco: Never Vaping Use Vaping status: Never Used Substance Use Topics Alcohol use: Yes Alcohol/week: 1.0 standard drink of alcohol Types: 1 Glasses of Wine (5oz) per week Comment: Social Drug use: No REVIEW OF SYSTEMS GENERAL: + fever HEENT: + Sinus congestion NECK: Negative for lumps, goiter, pain and significant neck swelling RESPIRATORY: + Cough CARDIOVASCULAR: Negative for chest pain, leg swelling, orthopnea, or palpitations GI: No nausea, vomiting, or diarrhea/constipation. No hematochezia/melena. No heartburn or reflux symptoms. : No history of dysuria, frequency or incontinence MUSCULOSKELETAL: Negative for joint pain or swelling. SKIN: Negative for lesions, rash, and itching ENDOCRINE: Negative for cold or heat intolerance, polyuria, polydipsia and goiter NEURO: No history of headaches, syncope, paralysis, seizures or tremors MOOD: Negative for depression, anxiety, or suicidal ideation. EXAM: BP 124/80 Pulse 103 Temp 36.6 C (97.8 F) (Left Tympanic) Resp 16 Wt 79.8 kg (176 lb) LMP 08/04/2016 SpO2 97% BMI 31.18 kg/m PHYSICAL EXAM: General Appearance: Well appearing, alert, in no acute distress, well-hydrated, well nourished. Skin: Skin color, texture, turgor normal, no suspicious rashes or lesions. Head: Normocephalic, no masses, lesions, tenderness or abnormalities. Eyes: Anicteric sclera. Extraocular movements are intact. Ears: External ears normal, canals clear. TM's dull Nose/Sinuses: Positive findings: mucosa erythematous and swollen, purulent rhinorrhea. Oropharynx: Lips, mucosa, and tongue normal, teeth and gums normal, oropharynx normal. Neck: Supple, no adenopathy; thyroid symmetric, normal size, no bruits. Lungs: Cough. Heart: RRR without murmur, gallop, or rubs. No ectopy. Extremities: No deformities, edema, skin discoloration, clubbing or cyanosis. Good capillary refill. Peripheral Pulses: Normal, Capillary refill <2secs, strong peripheral pulses, Pulses palpable. Neurologic: Gait normal. Sensation grossly intact. ASSESSMENT/PLAN: 1. Sinobronchitis - ICD9: 473.9, 490, ICD10: J32.9, J40 (primary diagnosis) - Will begin treatment with Levaquin - Start prednisone burst. - May use codeine cough syrup at bedtime as needed for cough. - Supportive care with plenty of fluids, rest, and analgesia prn. - LEVOFLOXACIN 750 MG TABLET - PREDNISONE 20 MG TABLET - CODEINE 10 MG-GUAIFENESIN 100 MG/5 ML ORAL LIQUID 2. Vaginal yeast infection - ICD9: 112.1, ICD10: B37.31 - May use if vaginal yeast infection symptoms began after antibiotic use - FLUCONAZOLE 150 MG TABLET Follow-up if no improvement. Discussed treatment plan and patient voices understanding. Patient's questions answered appropriately. Medications and potential side effects were discussed and patient voices understanding. Ara Crawford APRN.CNP This note was partially generated using [email or web address] voice recognition system. Note was reviewed for accuracy. There may be minor misspellings or grammar miscues with [email or web address] voice recognition. PDMP website checked and validated. All prescriptions have been APPROPRIATELY filled. No suspicious activity was identified. 01/06/2025 by Ara Crawford APRN.ESSIE documented in this encounter [facility] 01-06-2025 Note HNO ID: [id number] Author: ARA CRAWFORD APRN.CNP Service: ? Author Type: Nurse Practitioner Type: Progress Notes Filed: 01/06/2025 08:11 Note Text: This is a 34 year old female who presents today with: Patient presents with: Acute Visit: Lingering cough HISTORY OF PRESENT ILLNESS: Macey Campbell is a 34 year old female. Patient presents with: Acute Visit: Lingering cough Patient of Dr. Ballard here in the office for on going cough. Symptoms started in December, diagnosed with URI and seen again diagnosed with bronchitis. Chest x-ray was normal in November has been treated with doxycycline and Augmentin as well as prednisone taper. Refers that symptoms improve for about 1 week after antibiotic treatment but then returns. No wheezing or SOB. Cough is productive at times, post nasal drip. Refers that she coughs all night. Taking Nyquil and dayquil. Has tried Netipot for sinus congestion. Last weekend fever 102.4, no fevers since. Smoking 1/2 PPD PAST MEDICAL HISTORY: PAST MEDICAL HISTORY Diagnosis Date GERD without esophagitis 12/31/2021 Obesity, Class I, BMI 30-34.9 12/31/2021 PCOS (polycystic ovarian syndrome) Tobacco use disorder 12/31/2021 PAST SURGICAL HISTORY Procedure Laterality Date COLONOSCOPY SCREENING 02/08/2024 EGD W/O BRSH SPEC VARICIES INJ 02/08/2024 LAPS ABD PRTMANDOMENTUM DX W/WO SPEC BR/WA SPX 2014 Laparoscopy - for r/o endometriosis, foung to have a cyst PT ED OBSTETRICS AND GYNECOLOGY N/A 12/2019 laparoscopic hysterectomy - for endometriosis - Dr. Shelley REMOVAL OF OVARY(S) Right 10/24/2020 ovarian torsion REMOVAL OF OVARY(S) Left 12/2020 Dr Jo SALPINGECTOMY Right 12/27/2016 laparoscopic Right salpingectomy- ECTOPIC ALLERGIES Cleocin [Clindamycin] and Sulfa (Sulfonamide Antibiotics) MEDICATIONS Current Outpatient Medications Medication Sig rizatriptan (MAXALT ARMORING MACHINE OPERATOR) 10 mg disintegrating tablet Take 1 tablet (10 mg) by mouth as needed. May repeat in 2 hours if needed metFORMIN ER (GLUCOPHAGE XR) 500 mg 24 hr tablet Take 1 tablet by mouth daily with breakfast. spironolactone (ALDACTONE) 50 mg tablet Take 1 tablet by mouth two times a day. omeprazole (PRILOSEC) 40 mg capsule Take 1 capsule by mouth once daily. rosuvastatin (CRESTOR) 5 mg tablet Take 2 tablets by mouth daily at bedtime. amitriptyline (ELAVIL) 10 mg tablet Take 1 tablet by mouth daily at bedtime. estradiol (ESTRACE) 1 mg tablet No current facility-administered medications for this visit. FAMILY HISTORY Problem Relation Age of Onset Cervical Cancer Mother other (breast cyst [Other]) Mother Hyperlipidemia Father Hypertension Father other (sepsis) Father (after ruptured appe and another surgical complication where bowel was perforated during a[place]ander). No Known Problems Sister No Known Problems Sister ADD/ADHD Brother Depression Brother ADD/ADHD Brother Stroke Maternal Grandmother No Known Problems Maternal Grandfather Hypertension Paternal Grandmother Hyperlipidemia Paternal Grandmother Skin Cancer Paternal Grandmother other (ewings sarcoma) Paternal Grandmother Hypertension Paternal Grandfather Heart Attack Paternal Grandfather Diabetes Paternal Grandfather Hyperlipidemia Paternal Grandfather COPD Paternal Grandfather ADD/ADHD Son Social History Tobacco Use Smoking status: Every Day Current packs/day: 0.50 Average packs/day: 0.5 packs/day for 15.0 years (7.5 ttl pk-yrs) Types: Cigarettes Smokeless tobacco: Never Vaping Use Vaping status: Never Used Substance Use Topics Alcohol use: Yes Alcohol/week: 1.0 standard drink of alcohol Types: 1 Glasses of Wine (5oz) per week Comment: Social Drug use: No REVIEW OF SYSTEMS GENERAL: + fever HEENT: + Sinus congestion NECK: Negative for lumps, goiter, pain and significant neck swelling RESPIRATORY: + Cough CARDIOVASCULAR: Negative for chest pain, leg swelling, orthopnea, or palpitations GI: No nausea, vomiting, or diarrhea/constipation. No hematochezia/melena. No heartburn or reflux symptoms. : No history of dysuria, frequency or incontinence MUSCULOSKELETAL: Negative for joint pain or swelling. SKIN: Negative for lesions, rash, and itching ENDOCRINE: Negative for cold or heat intolerance, polyuria, polydipsia and goiter NEURO: No history of headaches, syncope, paralysis, seizures or tremors MOOD: Negative for depression, anxiety, or suicidal ideation. EXAM: BP 124/80 Pulse 103 Temp 36.6 ?C (97.8 ?F) (Left Tympanic) Resp 16 Wt 79.8 kg (176 lb) LMP 08/04/2016 SpO2 97% BMI 31.18 kg/m? PHYSICAL EXAM: General Appearance: Well appearing, alert, in no acute distress, well-hydrated, well nourished. Skin: Skin color, texture, turgor normal, no suspicious rashes or lesions. Head: Normocephalic, no masses, lesions, tenderness or abnormalities. Eyes: Anicteric sclera. Extraocular movements are intact. Ears: External ears normal, canals c (more content not included)... [facility] 01-05-2025 Telephone encounter Note Isn't Radha out until Thursday.needs seen in office by one of the staff or UC [facility] 01-04-2025 History of Presen t illness Narrative Associated Order(s): Large Joint Arthro/Inj: L hip joint Post-Procedure Diagnose(s): Pain of left hip Images from the original note were not included. CHIEF COMPLAINT: Patient presents with: Left Hip - Injections, New PAIN EVALUATION 12/28/2024 19301/04/2025 1257 Pain Level: 6 6 Pain Location: Hip-Left Hip-Left Description: Aching;Dull;Stiffness Aching Duration Amount of Time: 7 -- Duration Units: Months -- Frequency: Continuous Continuous Intervention/Comfort measure: Medication;Reposition;Cold;Exerc ise;Heat;Massage;Other: See comment -- Comments: Physical therapy -- SUBJECTIVE: Macey Campbell is a 34 year old female here for consideration of USG L IA hip CSI, referral from Maggy Champion PA-C. The patient did undergo a lidocaine only injection on 11/26/2024 with a few hours of relief. Last Hgba1c: Hemoglobin A1C (%) Date Value 12/27/2024 5.8 08/25/2023 6.0 Past medical, surgical, social and family history were reviewed. Allergies and current medications reviewed. REVIEW OF SYSTEMS: GENERAL: no recent illness, unexplained weight loss or weight gain NEUROLOGIC: no numbness, tingling, or weakness except as mentioned in HPI, no known neuro problems or deficits SKIN: No rash or new skin changes and no chronic skin problems MSK: as mentioned in HPI PHYSICAL EXAMINATION: GENERAL APPEARANCE: Well appearing, in no acute distress, alert and oriented x3. L hip - discomfort with full knee flexion, worse with IR; + FADIR IMAGING: No imaging was performed today. Last MRI Hip/Pelvis - Impression Only MRI HIP WO IVCON LEFT Exam End: 09/23/2024 7:56 AM (Final result) Impression: IMPRESSION: Normal MRI of the left hip. Big Machine Consultant: ADILENE Transcribe Date/Time: Sep 23 2024 9:02A ... CLINICAL IMPRESSION: (M25.552) Pain of left hip (primary encounter diagnosis) PLAN: Today, in detail, through a thorough evaluation, we discussed possible etiologies of pain and plan for further diagnostic and therapeutic interventions. We discussed strategies for decreasing pain and improving strength, stability and motion. Specifically, we discussed symptom monitoring, activity modification, physical therapy, oral medications, and surgical intervention as well as diagnostic/therapeutic ultrasound-guided injections. Patient's questions were answered in detailed. Patient verbalizes understanding and agrees with the treatment plan as discussed. In addition to the comprehensive evaluation as outlined above and as a separate element to the visit today, we have made the determination to proceed with an injection to aid in the treatment of the patient's condition. We discussed risks, benefits, alternatives and expected outcomes of this injection in detail and the patient agreed to proceed. The procedure was performed as detailed below. Large Joint Arthro/Inj: L hip joint 01/04/2025 1:22 PM The procedure site was prepped in the usual sterile fashion. Site: L hip joint Details:Musculoskeletal ultrasound was utilized to successfully localize placement of the injection needle at the appropriate site. Ultrasound images demonstrating local vasculature and demonstrating injection of solution were saved. Medications: 40 mg triamcinolone acetonide 40 mg/mL Anesthetics: 3 mL ROPivacaine (PF) 5 mg/mL (0.5 %) Outcome: Tolerated well, no immediate complications Post-injection instructions were reviewed with the patient and the patient voiced understanding of these instructions. Informed Consent Consent Obtained: Verbal [place] Protocol A moment to CARE was completed. SIGN IN Personnel directly involved with the procedure wore the appropriate PPE. Patient/Surrogate Stated/Verified: Patient name, Date of , Relevant allergies and Intended procedure TIME OUT Relevant labs, photos, and/or imaging studies have been reviewed. Correct side/site marked and visible. Medications required for procedure verified. SIGN OUT The post-procedure POC has been communicated to the patient or surrogate. Follow-up: per consulting provider Written instructions (see patient instructions) and verbal health teaching given to patient, patient verbalizes understanding and agrees with treatment plan. Electronically Signed: Nay Reinoso DO Sports Medicine Physician documented in this encounter [facility] 01-04-2025 Note HNO ID: [id number] Author: NAY REINOSO, DO Service: ? Author Type: Physician Type: Progress Notes Filed: 01/04/2025 13:22 Note Text: CHIEF COMPLAINT: Patient presents with: Left Hip - Injections, New PAIN EVALUATION 12/28/2024 1939 01/04/2025 1257 Pain Level: 6 6 Pain Location: Hip-Left Hip-Left Description: Aching;Dull;Stiffness Aching Duration Amount of Time: 7 -- Duration Units: Months -- Frequency: Continuous Continuous Intervention/Comfort measure: Medication;Reposition;Cold;Exerc ise;Heat;Massage;Other: See comment -- Comments: Physical therapy -- SUBJECTIVE: Macey Campbell is a 34 year old female here for consideration of USG L IA hip CSI, referral from Maggy Champion PA-C. The patient did undergo a lidocaine only injection on 11/26/2024 with a few hours of relief. Last Hgba1c: Hemoglobin A1C (%) Date Value 12/27/2024 5.8 08/25/2023 6.0 Past medical, surgical, social and family history were reviewed. Allergies and current medications reviewed. REVIEW OF SYSTEMS: GENERAL: no recent illness, unexplained weight loss or weight gain NEUROLOGIC: no numbness, tingling, or weakness except as mentioned in HPI, no known neuro problems or deficits SKIN: No rash or new skin changes and no chronic skin problems MSK: as mentioned in HPI PHYSICAL EXAMINATION: GENERAL APPEARANCE: Well appearing, in no acute distress, alert and oriented x3. L hip - discomfort with full knee flexion, worse with IR; + FADIR IMAGING: No imaging was performed today. Last MRI Hip/Pelvis - Impression Only MRI HIP WO IVCON LEFT Exam End: 09/23/2024 7:56 AM (Final result) Impression: IMPRESSION: Normal MRI of the left hip. Big Machine Consultant: ADILENE Transcribe Date/Time: Sep 23 2024 9:02A ... CLINICAL IMPRESSION: (M25.552) Pain of left hip (primary encounter diagnosis) PLAN: Today, in detail, through a thorough evaluation, we discussed possible etiologies of pain and plan for further diagnostic and therapeutic interventions. We discussed strategies for decreasing pain and improving strength, stability and motion. Specifically, we discussed symptom monitoring, activity modification, physical therapy, oral medications, and surgical intervention as well as diagnostic/therapeutic ultrasound-guided injections. Patient's questions were answered in detailed. Patient verbalizes understanding and agrees with the treatment plan as discussed. In addition to the comprehensive evaluation as outlined above and as a separate element to the visit today, we have made the determination to proceed with an injection to aid in the treatment of the patient's condition. We discussed risks, benefits, alternatives and expected outcomes of this injection in detail and the patient agreed to proceed. The procedure was performed as detailed below. Large Joint Arthro/Inj: L hip joint 01/04/2025 1:22 PM The procedure site was prepped in the usual sterile fashion. Site: L hip joint Details:Musculoskeletal ultrasound was utilized to successfully localize placement of the injection needle at the appropriate site. Ultrasound images demonstrating local vasculature and demonstrating injection of solution were saved. Medications: 40 mg triamcinolone acetonide 40 mg/mL Anesthetics: 3 mL ROPivacaine (PF) 5 mg/mL (0.5 %) Outcome: Tolerated well, no immediate complications Post-injection instructions were reviewed with the patient and the patient voiced understanding of these instructions. Informed Consent Consent Obtained: Verbal [place] Protocol A moment to CARE was completed. SIGN IN Personnel directly involved with the procedure wore the appropriate PPE. Patient/Surrogate Stated/Verified: Patient name, Date of , Relevant allergies and Intended procedure TIME OUT Relevant labs, photos, and/or imaging studies have been reviewed. Correct side/site marked and visible. Medications required for procedure verified. SIGN OUT The post-procedure POC has been communicated to the patient or surrogate. Follow-up: per consulting provider Written instructions (see patient instructions) and verbal health teaching given to patient, patient verbalizes understanding and agrees with treatment plan. Electronically Signed: Nay Rienoso DO Sports Medicine Physician [facility] 01-04-2025 Instructions Nay Reinoso DO - 01/04/2025 1:02 PM EST Post injection Instructions: You received a steroid injection today. Please keep any physical therapy appointments and schedule a follow-up appointment as recommended. Benefits: Injections help with PAIN and allow you to better participate in daily activities and exercise/therapy. Injections do NOT cause healing of arthritis or injuries. As pain is better controlled, this will reduce the need to use anti-inflammatories by mouth and/or if you are not able to take an anti-inflammatory due to other reasons (you have been advised to avoid or they are contra-indicated). Activity recommendations: For the first 24 hours after the injection, keep the area clean and dry. It is okay to shower but no soaking in a tub or swimming. Schedule the injection when you have 1-2 days to rest afterwards. Ideally, no strenuous or vigorous activities (such as running or heavy lifting) for 3 days after the injection. Therefore, plan ahead to have any exercise or errands completed before the injection so you can relax afterwards. After the first week, you can gradually resume normal activities. If you do experience a significant decrease in pain, be careful not to do too much too soon. The chapa is gradual resumption of activities. What to expect: The injection contains lidocaine (which numbs the joint) and a steroid (which decreases inflammation). You may have pain relief within hours (sometimes immediate) due to the lidocaine. The steroid can take a few days, up to a few weeks, to reach the full effect, so please be patient! The numbing medicine you received will wear off in 4-6 hours. It is also possible to have a slight increase in symptoms over the first few days. In order to prevent that, please take some anti-inflammatory (prescription strength, or Ibuprofen, or naprosyn) for the next three to five days. You may also need to ice the injected area at LEAST three times a day as instructed below. How long will an injection last? The length of response to an injection is variable. Patients have experienced relief anywhere from a few weeks to a few years. The injection will decrease the inflammation and the pain will return if/when the inflammation returns. Side effects: - There is a risk of bleeding and infection with any injection (including vaccinations). Precautions are taken to reduce this risk greatly. - If you have diabetes, the steroid component may raise your blood sugars significantly. Your doctor may postpone or recommend other therapies based on your blood sugar control. - Allergic reactions to the lidocaine or steroid can occur. If you have a known allergy to lidocaine or any steroid, please notify your doctor. PLEASE CALL YOUR DOCTOR OR PROCEED TO EMERGENCY ROOM IF: - You develop fevers/chills, redness or warmth at area of injection - You develop rash, difficulty breathing - You have significant worsening of your pain that is not controlled with the above suggestions ICING INSTRUCTIONS For an ice bag, apply for 15-20 minutes at least three times a day, more if needed. Ice in a Ziplog/plastic bag or even a bag of frozen peas/corn will work (and is reusable). You can also use Alie dish liquid frozen in a ziploc bag. Use a large bottle, dump it in a gallon ziploc bag, zip that and place it inside another ziploc bag. Place in freezer and let it harden to a Play-jessica like consistency. Mold it around the part to be iced and use an sadaf wrap or towel to keep in place. Refreeze and use when needed. For ice massage, fill an empty paper or styrofoam cup nearly full with water, place them in the freezer and let them freeze completely. Tear the top off of the cup leaving the bottom part of the cup intact so you can hold onto it. Rub the ice over the affected area for about [address] to do this is in the shower or the bath (with affected area out of the water) for the contrast of hot water, but it can be done outside of the shower. MEDICATION INSTRUCTIONS Aleve (Naproxen sodium), 1-2 pills, up to twice a day, with food, for 5-10 days, then as needed thereafter. OR Ibuprofen (Motrin), 3-4 pills, up to three times a day, with food, for 5-10 days, then as needed thereafter. Do not take these medications if you have been instructed not to in the past or if you are taking another anti-inflammatory (such as Celebrex, Naprosyn, Relafen, Voltaren, Mobic, Anaprox, etc). Do not take if you have a history of bleeding ulcers in your stomach. If this should start to upset your stomach, stop taking it. Should you have any questions, you may want to ask your pharmacist or give our office a call. AND/OR Tylenol (acetaminophen), three 325mg pills, or two 500mg pills, up to four times a day, for 5-10 days, then as needed thereafter. Do not take this if you have liver problems or have been advised to not take Tylenol in the past. Be careful when combining with other pain relievers as several pain relievers have acetaminophen in them. Should you have any questions, you may want to ask your pharmacist or give our office a call. documented in this encounter [facility] 12-30-2024 Telephone encounter Note Patient notified of results and provider's instructions. Patient verbalizes understanding. Roselia Arrington RN [facility] 12-30-2024 Miscellaneous Notes Patient notified of results and provider's instructions. Patient verbalizes understanding. Roselia Arrington RN LM to return call to office. Kofi Yu LPN Can please let patient know that I received her lab results back. Her white blood count was just a little elevated. I would just repeat this in a month to ensure that it is stable. Her A1C is still in the prediabetic range, but is stable. Please work eating less sugar, bread, potato, pasta, rice, corn, corn syrup. Her cholesterol level is still elevated, but is much improved from last time. Everything else looks normal/stable. Radha Garduno APRN.FRANCHISE DEVELOPMENT MANAGER documented in this encounter [facility] 12-30-2024 Telephone encounter Note LM to return call to office. Kofi Yu LPN [facility] 12-30-2024 Telephone encounter Note Can please let patient know that I received her lab results back. Her white blood count was just a little elevated. I would just repeat this in a month to ensure that it is stable. Her A1C is still in the prediabetic range, but is stable. Please work eating less sugar, bread, potato, pasta, rice, corn, corn syrup. Her cholesterol level is still elevated, but is much improved from last time. Everything else looks normal/stable. Radha Garduno APRN.ESSIE [facility] 12-20-2024 Instructions Radha Garduno APRN.CNP - 12/20/2024 11:28 AM EST Continue the same medications. Return for fasting labwork. Health Promotion: - Eat healthy -- go to [email or web address] to get started - Have a yearly physical - Mammogram yearly after age 40 - Get at least 30 minutes of physical activity daily - Get at least 7 to 8 hours of sleep each night - Reach and maintain a healthy weight - Get help to quit or don't start smoking - Limit alcohol use to one drink or less - Do not use illegal drugs or misuse prescription drugs - Wear a helmet when riding a bike and wear protective gear for sports - Wear a seatbelt in cars and not text and drive - Wear sunscreen documented in this encounter [facility] 12-20-2024 Note HNO ID: [id number] Author: RDAHA GARDUNO APRN.CNP Service: ? Author Type: Nurse Practitioner Type: Progress Notes Filed: 12/20/2024 16:15 Note Text: This is a 34 year old female who presents today with: Patient presents with: Yearly Exam HISTORY OF PRESENT ILLNESS: Macey Campbell is a 34 year old female. Patient presents with: Yearly Exam REVIEW OF SYSTEMS GENERAL: No weight loss, malaise or fevers/chills HEENT: Negative for frequent or significant headaches, gets migraines. Nothing worsening. No changes in hearing or vision. NECK: Negative for lumps, goiter, pain and significant neck swelling RESPIRATORY: Negative for cough, hemoptysis, wheezing, dyspnea or shortness of breath CARDIOVASCULAR: Negative for chest pain, leg swelling, orthopnea, or palpitations GI: No nausea, vomiting, or diarrhea/constipation. No hematochezia/melena. + reflux controlled by omeprazole. : No history of dysuria, frequency or incontinence MUSCULOSKELETAL: Negative for joint pain or swelling. Gets some hip pain. SKIN: Negative for lesions, rash, and itching ENDOCRINE: Negative for cold or heat intolerance, polyuria, polydipsia and goiter NEURO: No history of headaches, syncope, paralysis, seizures or tremors Migraines: Used maxalt yesterday, which is the first time for awhile. Takes amitriptyline at bedtime. HYPERLIPIDEMIA: Patient is taking medications: Yes. Patient is watching diet: No Patient denies myalgias: Yes. Patient denies gi upset: Yes GERD: Controlled on PPI. Prediabetes: Takes metformin. Denies side effects. PCOS: Takes spironolactone. Denies problems. PAST MEDICAL HISTORY: PAST MEDICAL HISTORY Diagnosis Date GERD without esophagitis 12/31/2021 Obesity, Class I, BMI 30-34.9 12/31/2021 PCOS (polycystic ovarian syndrome) Tobacco use disorder 12/31/2021 PAST SURGICAL HISTORY Procedure Laterality Date COLONOSCOPY SCREENING 02/08/2024 EGD W/O BRSH SPEC VARICIES INJ 02/08/2024 LAPS ABD PRTMANDOMENTUM DX W/WO SPEC BR/WA SPX 2014 Laparoscopy - for r/o endometriosis, foung to have a cyst PT ED OBSTETRICS AND GYNECOLOGY N/A 12/2019 laparoscopic hysterectomy - for endometriosis - Dr. Shelley REMOVAL OF OVARY(S) Right 10/24/2020 ovarian torsion REMOVAL OF OVARY(S) Left 12/2020 Dr Jo SALPINGECTOMY Right 12/27/2016 laparoscopic Right salpingectomy- ECTOPIC ALLERGIES Cleocin [Clindamycin] and Sulfa (Sulfonamide Antibiotics) MEDICATIONS Current Outpatient Medications Medication Sig rizatriptan (MAXALT ARMORING MACHINE OPERATOR) 10 mg disintegrating tablet Take 1 tablet (10 mg) by mouth as needed. May repeat in 2 hours if needed metFORMIN ER (GLUCOPHAGE XR) 500 mg 24 hr tablet Take 1 tablet by mouth daily with breakfast. spironolactone (ALDACTONE) 50 mg tablet Take 1 tablet by mouth two times a day. omeprazole (PRILOSEC) 40 mg capsule Take 1 capsule by mouth once daily. rosuvastatin (CRESTOR) 5 mg tablet Take 2 tablets by mouth daily at bedtime. amitriptyline (ELAVIL) 10 mg tablet Take 1 tablet by mouth daily at bedtime. estradiol (ESTRACE) 1 mg tablet No current facility-administered medications for this visit. FAMILY HISTORY Problem Relation Age of Onset Cervical Cancer Mother other (breast cyst [Other]) Mother Hyperlipidemia Father Hypertension Father other (sepsis) Father (after ruptured appe and another surgical complication where bowel was perforated during a[place]). No Known Problems Sister No Known Problems Sister ADD/ADHD Brother Depression Brother ADD/ADHD Brother Stroke Maternal Grandmother No Known Problems Maternal Grandfather Hypertension Paternal Grandmother Hyperlipidemia Paternal Grandmother Skin Cancer Paternal Grandmother other (ewings sarcoma) Paternal Grandmother Hypertension Paternal Grandfather Heart Attack Paternal Grandfather Diabetes Paternal Grandfather Hyperlipidemia Paternal Grandfather COPD Paternal Grandfather ADD/ADHD Son Social History Tobacco Use Smoking status: Every Day Current packs/day: 0.50 Average packs/day: 0.5 packs/day for 15.0 years (7.5 ttl pk-yrs) Types: Cigarettes Smokeless tobacco: Never Vaping Use Vaping status: Never Used Substance Use Topics Alcohol use: Yes Alcohol/week: 1.0 standard drink of alcohol Types: 1 Glasses of Wine (5oz) per week Comment: Social Drug use: No EXAM: BP 118/78 Pulse 100 Resp 16 Wt 81.2 kg (179 lb) LMP 08/04/2016 SpO2 96% BMI 31.71 kg/m? PHYSICAL EXAM: General Appearance: Well appearing, alert, in no acute distress, well-hydrated, well nourished.. Skin: Skin color, texture, turgor normal, no suspicious rashes or lesions. Head: Normocephalic, no masses, lesions, tenderness or abnormalities. Eyes: Anicteric sclera. Pupils are equally round and reactive to light. Extraocular movements are intact. . Ears: External ears normal, canals clear. Normal TMs bilaterally. Oropharynx: Lips, mucosa, and tongue normal, te (more content not included)... [facility] 12-20-2024 History of Presen t illness Narrative This is a 34 year old female who presents today with: Patient presents with: Yearly Exam HISTORY OF PRESENT ILLNESS: Macey Campbell is a 34 year old female. Patient presents with: Yearly Exam REVIEW OF SYSTEMS GENERAL: No weight loss, malaise or fevers/chills HEENT: Negative for frequent or significant headaches, gets migraines. Nothing worsening. No changes in hearing or vision. NECK: Negative for lumps, goiter, pain and significant neck swelling RESPIRATORY: Negative for cough, hemoptysis, wheezing, dyspnea or shortness of breath CARDIOVASCULAR: Negative for chest pain, leg swelling, orthopnea, or palpitations GI: No nausea, vomiting, or diarrhea/constipation. No hematochezia/melena. + reflux controlled by omeprazole. : No history of dysuria, frequency or incontinence MUSCULOSKELETAL: Negative for joint pain or swelling. Gets some hip pain. SKIN: Negative for lesions, rash, and itching ENDOCRINE: Negative for cold or heat intolerance, polyuria, polydipsia and goiter NEURO: No history of headaches, syncope, paralysis, seizures or tremors Migraines: Used maxalt yesterday, which is the first time for awhile. Takes amitriptyline at bedtime. HYPERLIPIDEMIA: Patient is taking medications: Yes. Patient is watching diet: No Patient denies myalgias: Yes. Patient denies gi upset: Yes GERD: Controlled on PPI. Prediabetes: Takes metformin. Denies side effects. PCOS: Takes spironolactone. Denies problems. PAST MEDICAL HISTORY: PAST MEDICAL HISTORY Diagnosis Date GERD without esophagitis 12/31/2021 Obesity, Class I, BMI 30-34.9 12/31/2021 PCOS (polycystic ovarian syndrome) Tobacco use disorder 12/31/2021 PAST SURGICAL HISTORY Procedure Laterality Date COLONOSCOPY SCREENING 02/08/2024 EGD W/O BRSH SPEC VARICIES INJ 02/08/2024 LAPS ABD PRTM&OMENTUM DX W/WO SPEC BR/WA SPX 2014 Laparoscopy - for r/o endometriosis, foung to have a cyst PT ED OBSTETRICS & GYNECOLOGY N/A 12/2019 laparoscopic hysterectomy - for endometriosis - Dr. Shelley REMOVAL OF OVARY(S) Right 10/24/2020 ovarian torsion REMOVAL OF OVARY(S) Left 12/2020 Dr Sandro SALPINGECTOMY Right 12/27/2016 laparoscopic Right salpingectomy- ECTOPIC ALLERGIES Cleocin [Clindamycin] and Sulfa (Sulfonamide Antibiotics) MEDICATIONS Current Outpatient Medications Medication Sig rizatriptan (MAXALT ARMORING MACHINE OPERATOR) 10 mg disintegrating tablet Take 1 tablet (10 mg) by mouth as needed. May repeat in 2 hours if needed metFORMIN ER (GLUCOPHAGE XR) 500 mg 24 hr tablet Take 1 tablet by mouth daily with breakfast. spironolactone (ALDACTONE) 50 mg tablet Take 1 tablet by mouth two times a day. omeprazole (PRILOSEC) 40 mg capsule Take 1 capsule by mouth once daily. rosuvastatin (CRESTOR) 5 mg tablet Take 2 tablets by mouth daily at bedtime. amitriptyline (ELAVIL) 10 mg tablet Take 1 tablet by mouth daily at bedtime. estradiol (ESTRACE) 1 mg tablet No current facility-administered medications for this visit. FAMILY HISTORY Problem Relation Age of Onset Cervical Cancer Mother other (breast cyst [Other]) Mother Hyperlipidemia Father Hypertension Father other (sepsis) Father (after ruptured appe and another surgical complication where bowel was perforated during [place]). No Known Problems Sister No Known Problems Sister ADD/ADHD Brother Depression Brother ADD/ADHD Brother Stroke Maternal Grandmother No Known Problems Maternal Grandfather Hypertension Paternal Grandmother Hyperlipidemia Paternal Grandmother Skin Cancer Paternal Grandmother other (ewings sarcoma) Paternal Grandmother Hypertension Paternal Grandfather Heart Attack Paternal Grandfather Diabetes Paternal Grandfather Hyperlipidemia Paternal Grandfather COPD Paternal Grandfather ADD/ADHD Son Social History Tobacco Use Smoking status: Every Day Current packs/day: 0.50 Average packs/day: 0.5 packs/day for 15.0 years (7.5 ttl pk-yrs) Types: Cigarettes Smokeless tobacco: Never Vaping Use Vaping status: Never Used Substance Use Topics Alcohol use: Yes Alcohol/week: 1.0 standard drink of alcohol Types: 1 Glasses of Wine (5oz) per week Comment: Social Drug use: No EXAM: BP 118/78 Pulse 100 Resp 16 Wt 81.2 kg (179 lb) LMP 08/04/2016 SpO2 96% BMI 31.71 kg/m PHYSICAL EXAM: General Appearance: Well appearing, alert, in no acute distress, well-hydrated, well nourished.. Skin: Skin color, texture, turgor normal, no suspicious rashes or lesions. Head: Normocephalic, no masses, lesions, tenderness or abnormalities. Eyes: Anicteric sclera. Pupils are equally round and reactive to light. Extraocular movements are intact. . Ears: External ears normal, canals clear. Normal TMs bilaterally. Oropharynx: Lips, mucosa, and tongue normal, teeth and gums normal, oropharynx normal. Neck: Supple, no adenopathy; thyroid symmetric, normal size, no bruits. Lungs: Lungs clear to auscultation. No wheezing, rhonchi, rales.. Heart: RRR without murmur, gallop, or rubs. No ectopy. Abdomen: Normal abdominal exam, Abdomen soft, non-tender. Bowel sounds normal. No masses, organomegaly. Extremities: No deformities, edema, skin discoloration, clubbing or cyanosis. Good capillary refill. . Neurologic: Gait normal. Reflexes normal and symmetric. Sensation grossly intact. . ASSESSMENT/PLAN: 1. Wellness examination - ICD9: V70.0, ICD10: Z00.00 (primary diagnosis) - COMPLETE BLOOD COUNT AND DIFFERENTIAL Health Promotion: - Eat healthy -- go to [email or web address] to get started - Have a yearly physical - Mammogram yearly after age 40 - Get at least 30 minutes of physical activity daily - Get at least 7 to 8 hours of sleep each night - Reach and maintain a healthy weight - Get help to quit or don't start smoking - Limit alcohol use to one drink or less - Do not use illegal drugs or misuse prescription drugs - Wear a helmet when riding a bike and wear protective gear for sports - Wear a seatbelt in cars and not text and drive - Wear sunscreen 2. Gastroesophageal reflux disease, unspecified whether esophagitis present - ICD9: 530.81, ICD10: K21.9 Stable on PPI. - MAGNESIUM 3. Mixed hyperlipidemia - ICD9: 272.2, ICD10: E78.2 - Control undetermined, due for labs - Continue current medications - Counseled on healthy diet and regular exercise - LIPID PANEL BASIC - COMPLETE BLOOD COUNT AND DIFFERENTIAL - COMPREHENSIVE METABOLIC PANEL 4. Hyperglycemia - ICD9: 790.29, ICD10: R73.9 - COMPREHENSIVE METABOLIC PANEL - HEMOGLOBIN A1C 5. 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 6. PCOS (polycystic ovarian syndrome) - ICD9: 256.4, ICD10: E28.2 Stable on spironolactone. Discussed treatment plan and patient voices understanding. Patient's questions answered appropriately. Medications and potential side effects were discussed and patient voices understanding. Return to the office as scheduled or as needed for worsening/no improvement. Radha Garduno APRN.FRANCHISE DEVELOPMENT MANAGER documented in this encounter [facility] 12-15-2024 Telephone encounter Note Prescription Refill Information The patient has been identified by name and date of : Yes Caregiver verified no other encounters exist for this prescription request: Yes Caregiver confirmed with patient/requestor that no other refills are due, in the near future, with this provider at this time: Yes The last office visit in the department: 12/05/24 Does the patient have a future office visit with this provider/department: No My chart message sent Requested Prescriptions Pending Prescriptions Disp Refills metFORMIN ER (GLUCOPHAGE XR) 500 mg 24 hr tablet 30 tablet 0 Sig: Take 1 tablet by mouth daily with breakfast. spironolactone (ALDACTONE) 50 mg tablet 60 tablet 0 Sig: Take 1 tablet by mouth two times a day. Jocelyn Gutierrez LPN December 15, 2024 6:53 AM [facility] 12-15-2024 Miscellaneous Notes Prescription Refill Information The patient has been identified by name and date of : Yes Caregiver verified no other encounters exist for this prescription request: Yes Caregiver confirmed with patient/requestor that no other refills are due, in the near future, with this provider at this time: Yes The last office visit in the department: 12/05/24 Does the patient have a future office visit with this provider/department: No My chart message sent Requested Prescriptions Pending Prescriptions Disp Refills metFORMIN ER (GLUCOPHAGE XR) 500 mg 24 hr tablet 30 tablet 0 Sig: Take 1 tablet by mouth daily with breakfast. spironolactone (ALDACTONE) 50 mg tablet 60 tablet 0 Sig: Take 1 tablet by mouth two times a day. Jocelyn Gutierrez LPN December 15, 2024 6:53 AM documented in this encounter [facility] 12-15-2024 Telephone encounter Note Prescription Refill Information The patient has been identified by name and date of : Yes Caregiver verified no other encounters exist for this prescription request: Yes Caregiver confirmed with patient/requestor that no other refills are due, in the near future, with this provider at this time: Yes The last office visit in the department: 12/05/24 Does the patient have a future office visit with this provider/department: No My chart message sent Requested Prescriptions Pending Prescriptions Disp Refills rizatriptan (MAXALT ARMORING MACHINE OPERATOR) 10 mg disintegrating tablet 6 tablet 0 Sig: Take 1 tablet (10 mg) by mouth as needed. May repeat in 2 hours if needed Jocelyn Gutierrez LPN December 15, 2024 6:52 AM [facility] 12-15-2024 Miscellaneous Notes Prescription Refill Information The patient has been identified by name and date of : Yes Caregiver verified no other encounters exist for this prescription request: Yes Caregiver confirmed with patient/requestor that no other refills are due, in the near future, with this provider at this time: Yes The last office visit in the department: 12/05/24 Does the patient have a future office visit with this provider/department: No My chart message sent Requested Prescriptions Pending Prescriptions Disp Refills rizatriptan (MAXALT ARMORING MACHINE OPERATOR) 10 mg disintegrating tablet 6 tablet 0 Sig: Take 1 tablet (10 mg) by mouth as needed. May repeat in 2 hours if needed Jocelyn Gutierrez LPN December 15, 2024 6:52 AM documented in this encounter [facility] 12-05-2024 Instructions Radha Garduno APRN.CNP - 12/05/2024 10:33 AM EST Start the augmentin. Start the prednisone taper. Mucinex. Continue inhaler. Let us know if no better/worsening. documented in this encounter [facility] 12-05-2024 Note HNO ID: [id number] Author: RADHA GARDUNO APRN.ESSIE Service: ? Author Type: Nurse Practitioner Type: Progress Notes Filed: 12/05/2024 12:23 Note Text: This is a 34 year old female who presents today with: Patient presents with: Recheck: Follow up from illness, not feeling any better HISTORY OF PRESENT ILLNESS: Macey Campbell is a 34 year old female. Patient presents with: Recheck: Follow up from illness, not feeling any better Pt presents with complaint of ongoing sickness. Started w/ cold symptoms several weeks ago. Was almost 2 weeks into symptoms and went to walk-in clinic. Told that it could be a sinus infection. Started doxycycline. Thursday, wasn't feeling any better -- chest pain w/ coughing. Returned to primary care. Chest xray was normal. Cough medication. Thursday felt worse. Didn't sleep that night d/t coughing and headache. + dizziness. + diarrhea. Took some ibuprofen, dramamine, and imodium. Took a variety of different OTC medications. 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 101.2. Taking tylenol and ibuprofen. Getting some sharp thoracic back pain w/ cough. PAST MEDICAL HISTORY: PAST MEDICAL HISTORY Diagnosis Date GERD without esophagitis 12/31/2021 Obesity, Class I, BMI 30-34.9 12/31/2021 PCOS (polycystic ovarian syndrome) Tobacco use disorder 12/31/2021 PAST SURGICAL HISTORY Procedure Laterality Date COLONOSCOPY SCREENING 02/08/2024 EGD W/O BRSH SPEC VARICIES INJ 02/08/2024 LAPS ABD PRTMANDOMENTUM DX W/WO SPEC BR/WA SPX 2014 Laparoscopy - for r/o endometriosis, foung to have a cyst PT ED OBSTETRICS AND GYNECOLOGY N/A 12/2019 laparoscopic hysterectomy - for endometriosis - Dr. Shelley REMOVAL OF OVARY(S) Right 10/24/2020 ovarian torsion REMOVAL OF OVARY(S) Left 12/2020 Dr Jo SALPINGECTOMY Right 12/27/2016 laparoscopic Right salpingectomy- ECTOPIC ALLERGIES Cleocin [Clindamycin] and Sulfa (Sulfonamide Antibiotics) MEDICATIONS Current Outpatient Medications Medication Sig Doxycycline Hyclate 100 mg EC tablet Take 100 mg by mouth two times a day. X 7 days albuterol HFA (PROVENTIL HFA, VENTOLIN HFA) 90 mcg/actuation inhaler Inhale 2 Puffs as instructed every 4 hours as needed for wheezing/shortness of breath. benzonatate (TESSALON PERLE) 100 mg capsule Take 1 capsule by mouth three times a day as needed for up to 10 days. predniSONE (DELTASONE) 10 mg tablet 6 tabs po day 1 and 2, then 5 tabs day 3 and 4, 4 tabs day 5 and 6, 3 tabs day 7 and 8, 2 tabs day 9 and 10, 1 tab day 11 and 12. (Patient not taking: Reported on 09/20/2024) cyclobenzaprine (FLEXERIL) 10 mg tablet Take 1 tablet by mouth three times a day as needed for muscle spasm. (Patient not taking: Reported on 09/20/2024) omeprazole (PRILOSEC) 40 mg capsule Take 1 capsule by mouth once daily. rosuvastatin (CRESTOR) 5 mg tablet Take 2 tablets by mouth daily at bedtime. spironolactone (ALDACTONE) 50 mg tablet Take 1 tablet by mouth two times a day. amitriptyline (ELAVIL) 10 mg tablet Take 1 tablet by mouth daily at bedtime. metFORMIN ER (GLUCOPHAGE XR) 500 mg 24 hr tablet Take 1 tablet by mouth daily with breakfast. estradiol (ESTRACE) 1 mg tablet rizatriptan (MAXALT ARMORING MACHINE OPERATOR) 10 mg disintegrating tablet Take 1 tablet by mouth as needed. May repeat in 2 hours if needed No current facility-administered medications for this visit. FAMILY HISTORY Problem Relation Age of Onset Cervical Cancer Mother other (breast cyst [Other]) Mother Hyperlipidemia Father Hypertension Father No Known Problems Brother ADD/ADHD Brother Stroke Maternal Grandmother No Known Problems Maternal Grandfather Hypertension Paternal Grandmother Hyperlipidemia Paternal Grandmother Skin Cancer Paternal Grandmother Hypertension Paternal Grandfather Heart Attack Paternal Grandfather Diabetes Paternal Grandfather Hyperlipidemia Paternal Grandfather COPD Paternal Grandfather ADD/ADHD Son No Known Problems Half-sister No Known Problems Half-sister Social History Tobacco Use Smoking status: Every Day Current packs/day: 0.50 Average packs/day: 0.5 packs/day for 15.0 years (7.5 ttl pk-yrs) Types: Cigarettes Smokeless tobacco: Never Vaping Use Vaping status: Never Used Substance Use Topics Alcohol use: Yes Alcohol/week: 1.0 standard drink of alcohol Types: 1 Glasses of Wine (5oz) per week Comment: Social Drug use: No EXAM: BP 114/72 Pulse 91 Resp 16 LMP 08/04/2016 SpO2 98% PHYSICAL EXAM: General Appearance: Well appearing, alert, in no acute distress, well-hydrated, well nourished.. Skin: Skin color, texture, turgor normal, no suspicious rashes or lesions. Head: Normocephalic, no masses, lesions, tenderness or abnormalities. Eyes: Anicteric sclera. Pupils are equally round and reactive to light. Extraocular movements are intact. . Ears: External ears normal, canals clear. Normal TMs bilaterally. Oropharynx: Lips, mucosa, and tongue normal, teeth and gums (more content not included)... [facility] 12-05-2024 History of Presen t illness Narrative This is a 34 year old female who presents today with: Patient presents with: Recheck: Follow up from illness, not feeling any better HISTORY OF PRESENT ILLNESS: Macey Campbell is a 34 year old female. Patient presents with: Recheck: Follow up from illness, not feeling any better Pt presents with complaint of ongoing sickness. Started w/ cold symptoms several weeks ago. Was almost 2 weeks into symptoms and went to walk-in clinic. Told that it could be a sinus infection. Started doxycycline. Thursday, wasn't feeling any better -- chest pain w/ coughing. Returned to primary care. Chest xray was normal. Cough medication. Thursday felt worse. Didn't sleep that night d/t coughing and headache. + dizziness. + diarrhea. Took some ibuprofen, dramamine, and imodium. Took a variety of different OTC medications. 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 101.2. Taking tylenol and ibuprofen. Getting some sharp thoracic back pain w/ cough. PAST MEDICAL HISTORY: PAST MEDICAL HISTORY Diagnosis Date GERD without esophagitis 12/31/2021 Obesity, Class I, BMI 30-34.9 12/31/2021 PCOS (polycystic ovarian syndrome) Tobacco use disorder 12/31/2021 PAST SURGICAL HISTORY Procedure Laterality Date COLONOSCOPY SCREENING 02/08/2024 EGD W/O BRSH SPEC VARICIES INJ 02/08/2024 LAPS ABD PRTM&OMENTUM DX W/WO SPEC BR/WA SPX 2014 Laparoscopy - for r/o endometriosis, foung to have a cyst PT ED OBSTETRICS & GYNECOLOGY N/A 12/2019 laparoscopic hysterectomy - for endometriosis - Dr. Shelley REMOVAL OF OVARY(S) Right 10/24/2020 ovarian torsion REMOVAL OF OVARY(S) Left 12/2020 Dr Jo SALPINGECTOMY Right 12/27/2016 laparoscopic Right salpingectomy- ECTOPIC ALLERGIES Cleocin [Clindamycin] and Sulfa (Sulfonamide Antibiotics) MEDICATIONS Current Outpatient Medications Medication Sig Doxycycline Hyclate 100 mg EC tablet Take 100 mg by mouth two times a day. X 7 days albuterol HFA (PROVENTIL HFA, VENTOLIN HFA) 90 mcg/actuation inhaler Inhale 2 Puffs as instructed every 4 hours as needed for wheezing/shortness of breath. benzonatate (TESSALON PERLE) 100 mg capsule Take 1 capsule by mouth three times a day as needed for up to 10 days. predniSONE (DELTASONE) 10 mg tablet 6 tabs po day 1 and 2, then 5 tabs day 3 and 4, 4 tabs day 5 and 6, 3 tabs day 7 and 8, 2 tabs day 9 and 10, 1 tab day 11 and 12. (Patient not taking: Reported on 09/20/2024) cyclobenzaprine (FLEXERIL) 10 mg tablet Take 1 tablet by mouth three times a day as needed for muscle spasm. (Patient not taking: Reported on 09/20/2024) omeprazole (PRILOSEC) 40 mg capsule Take 1 capsule by mouth once daily. rosuvastatin (CRESTOR) 5 mg tablet Take 2 tablets by mouth daily at bedtime. spironolactone (ALDACTONE) 50 mg tablet Take 1 tablet by mouth two times a day. amitriptyline (ELAVIL) 10 mg tablet Take 1 tablet by mouth daily at bedtime. metFORMIN ER (GLUCOPHAGE XR) 500 mg 24 hr tablet Take 1 tablet by mouth daily with breakfast. estradiol (ESTRACE) 1 mg tablet rizatriptan (MAXALT ARMORING MACHINE OPERATOR) 10 mg disintegrating tablet Take 1 tablet by mouth as needed. May repeat in 2 hours if needed No current facility-administered medications for this visit. FAMILY HISTORY Problem Relation Age of Onset Cervical Cancer Mother other (breast cyst [Other]) Mother Hyperlipidemia Father Hypertension Father No Known Problems Brother ADD/ADHD Brother Stroke Maternal Grandmother No Known Problems Maternal Grandfather Hypertension Paternal Grandmother Hyperlipidemia Paternal Grandmother Skin Cancer Paternal Grandmother Hypertension Paternal Grandfather Heart Attack Paternal Grandfather Diabetes Paternal Grandfather Hyperlipidemia Paternal Grandfather COPD Paternal Grandfather ADD/ADHD Son No Known Problems Half-sister No Known Problems Half-sister Social History Tobacco Use Smoking status: Every Day Current packs/day: 0.50 Average packs/day: 0.5 packs/day for 15.0 years (7.5 ttl pk-yrs) Types: Cigarettes Smokeless tobacco: Never Vaping Use Vaping status: Never Used Substance Use Topics Alcohol use: Yes Alcohol/week: 1.0 standard drink of alcohol Types: 1 Glasses of Wine (5oz) per week Comment: Social Drug use: No EXAM: BP 114/72 Pulse 91 Resp 16 LMP 08/04/2016 SpO2 98% PHYSICAL EXAM: General Appearance: Well appearing, alert, in no acute distress, well-hydrated, well nourished.. Skin: Skin color, texture, turgor normal, no suspicious rashes or lesions. Head: Normocephalic, no masses, lesions, tenderness or abnormalities. Eyes: Anicteric sclera. Pupils are equally round and reactive to light. Extraocular movements are intact. . Ears: External ears normal, canals clear. Normal TMs bilaterally. Oropharynx: Lips, mucosa, and tongue normal, teeth and gums normal, oropharynx normal. Neck: Supple, no adenopathy Lungs: wheeze left upper field anteriorly, otherwise CTA. Heart: RRR without murmur, gallop, or rubs. No ectopy. Extremities: No deformities, edema, skin discoloration, clubbing or cyanosis. Good capillary refill. . Neurologic: Gait normal. ASSESSMENT/PLAN: 1. Bronchitis - ICD9: 490, ICD10: J40 Will go ahead and start prednisone taper/ Start augmentin. Mucinex. Stay well hydrated. - PREDNISONE 10 MG TABLET - AMOXICILLIN 875 MG-POTASSIUM CLAVULANATE 125 MG TABLET Discussed treatment plan and patient voices understanding. Patient's questions answered appropriately. Medications and potential side effects were discussed and patient voices understanding. Return to the office as scheduled or as needed for worsening/no improvement. Radha Garduno APRN.FRANCHISE DEVELOPMENT MANAGER documented in this encounter [facility] 11-30-2024 Telephone encounter Note Patient calls and notified of results and providers instructions. Patient verbalizes understanding. Kayla Carr RN [facility] 11-30-2024 Miscellaneous Notes Patient calls and notified of results and providers instructions. Patient verbalizes understanding. Kayla Carr RN Message left for patient to return call to review results. Alexa Fulton LPN ----- Message from Alexander Dickey MD sent at 11/30/2024 1:22 PM EST ----- Normal chest xray. No change in regimen. documented in this encounter [facility] 11-30-2024 Telephone encounter Note Message left for patient to return call to review results. Alexa Fulton LPN [facility] 11-30-2024 Telephone encounter Note ----- Message from Alexander Dickey MD sent at 11/30/2024 1:22 PM EST ----- Normal chest xray. No change in regimen. [facility] 11-30-2024 History of Presen t illness Narrative Radiology Service Progress Note PATIENT NAME: Macey Campbell DATE OF SERVICE: November 30, 2024 TIME: 12:40 PM PATIENT IDENTITY VERIFICATION COMPLETED USING TWO (2) IDENTIFIERS: Name and Date of confirmed by patient verbally. FALL SCREENING: Has the patient had 2 falls in the last year or 1 fall with injury or currently using an Ambulatory Assistive Device (Walker, Cane, Wheelchair, Crutches, etc.)? No PATIENT GENDER DATA: Assigned female at . status: : No status: NO. PATIENT RELEVANT IMPLANT DATA REVIEWED: Yes PATIENT PRESENTS WITH AN IMPLANTABLE OR ATTACHED CLINICAL RESEARCH SPEC: No RADIOLOGY DEPARTMENT: General X-ray: Exam(s) Completed: Chest X-Ray PERIPHERAL IV DATA: Not applicable SIGNED BY: RT Jermain(R) November 30, 2024 12:40 PM documented in this encounter [facility] 11-30-2024 Note HNO ID: [id number] Author: NEREIDA LA RT(Janine) Service: ? Author Type: Manager Contracting Type: Progress Notes Filed: 11/30/2024 12:46 Note Text: Radiology Service Progress Note PATIENT NAME: Macey Campbell DATE OF SERVICE: November 30, 2024 TIME: 12:40 PM PATIENT IDENTITY VERIFICATION COMPLETED USING TWO (2) IDENTIFIERS: Name and Date of confirmed by patient verbally. FALL SCREENING: Has the patient had 2 falls in the last year or 1 fall with injury or currently using an Ambulatory Assistive Device (Walker, Cane, Wheelchair, Crutches, etc.)? No PATIENT GENDER DATA: Assigned female at . status: : No status: NO. PATIENT RELEVANT IMPLANT DATA REVIEWED: Yes PATIENT PRESENTS WITH AN IMPLANTABLE OR ATTACHED CLINICAL RESEARCH SPEC: No RADIOLOGY DEPARTMENT: General X-ray: Exam(s) Completed: Chest X-Ray PERIPHERAL IV DATA: Not applicable SIGNED BY: Nereida La, RT(R) November 30, 2024 12:40 PM [facility] 11-30-2024 Note HNO ID: [id number] Author: ALEXANDER DICKEY MD Service: ? Author Type: Physician Type: Progress Notes Filed: 12/04/2024 14:09 Note Text: Chief Complaint Patient presents with: URI: Patient reports started 2 weeks ago went [facility] and [facility] on [facility] Thursday. Reports she is getting worse vs better Cough Head Congestion Headache back ache Chest Pain HPI Macey Campbell is a 34 year old female who presents here today for Above Complaints.. Paitent complaining of dry cough, chest congestion, chest pain with cough and breathing, headache, new loss of taste/smell, nasal congestion, rhinorrhea, fatigue, which started 2 weeks ago. Patient evaluated at [facility] 4 days ago and was treated with Doxycycline for possible sinus infection. Has had loose stools since starting abx and symptoms have not improved. Treating symptoms with sudafed, mucinex, nyquil, dayquil, robitussin, nasal saline, vicks, neti pot. Notes possible sick contacts prior to illness at large work meeting. Has not tested for COVID at home. Denies fever, SOB, wheezing, sore throat, myalgias, sinus pain/pressure, nausea, vomiting, ear pain/fullness, urinary symptoms, joint pain, rash, hemoptysis. Feels like symptoms are worsening with recurrent headache and worsening chest pain. Past medical history, appointments, medications, allergies reviewed. Previous Medical History PAST MEDICAL HISTORY Diagnosis Date GERD without esophagitis 12/31/2021 Obesity, Class I, BMI 30-34.9 12/31/2021 PCOS (polycystic ovarian syndrome) Tobacco use disorder 12/31/2021 Previous Surgical History PAST SURGICAL HISTORY Procedure Laterality Date COLONOSCOPY SCREENING 02/08/2024 EGD W/O BRSH SPEC VARICIES INJ 02/08/2024 LAPS ABD PRTMANDOMENTUM DX W/WO SPEC BR/WA SPX 2014 Laparoscopy - for r/o endometriosis, foung to have a cyst PT ED OBSTETRICS AND GYNECOLOGY N/A 12/2019 laparoscopic hysterectomy - for endometriosis - Dr. Shelley REMOVAL OF OVARY(S) Right 10/24/2020 ovarian torsion REMOVAL OF OVARY(S) Left 12/2020 Dr Jo SALPINGECTOMY Right 12/27/2016 laparoscopic Right salpingectomy- ECTOPIC Family History FAMILY HISTORY Problem Relation Age of Onset Cervical Cancer Mother other (breast cyst [Other]) Mother Hyperlipidemia Father Hypertension Father No Known Problems Brother ADD/ADHD Brother Stroke Maternal Grandmother No Known Problems Maternal Grandfather Hypertension Paternal Grandmother Hyperlipidemia Paternal Grandmother Skin Cancer Paternal Grandmother Hypertension Paternal Grandfather Heart Attack Paternal Grandfather Diabetes Paternal Grandfather Hyperlipidemia Paternal Grandfather COPD Paternal Grandfather ADD/ADHD Son No Known Problems Half-sister No Known Problems Half-sister Patient Allergies ALLERGIES Allergen Reactions Cleocin [Clindamyci* Rash Sulfa (Sulfonamide * Rash Current Medications Current Outpatient Medications on File Prior to Visit Medication Sig Doxycycline Hyclate 100 mg EC tablet Take 100 mg by mouth two times a day. X 7 days omeprazole (PRILOSEC) 40 mg capsule Take 1 capsule by mouth once daily. rosuvastatin (CRESTOR) 5 mg tablet Take 2 tablets by mouth daily at bedtime. spironolactone (ALDACTONE) 50 mg tablet Take 1 tablet by mouth two times a day. amitriptyline (ELAVIL) 10 mg tablet Take 1 tablet by mouth daily at bedtime. metFORMIN ER (GLUCOPHAGE XR) 500 mg 24 hr tablet Take 1 tablet by mouth daily with breakfast. estradiol (ESTRACE) 1 mg tablet rizatriptan (MAXALT ARMORING MACHINE OPERATOR) 10 mg disintegrating tablet Take 1 tablet by mouth as needed. May repeat in 2 hours if needed predniSONE (DELTASONE) 10 mg tablet 6 tabs po day 1 and 2, then 5 tabs day 3 and 4, 4 tabs day 5 and 6, 3 tabs day 7 and 8, 2 tabs day 9 and 10, 1 tab day 11 and 12. (Patient not taking: Reported on 09/20/2024) cyclobenzaprine (FLEXERIL) 10 mg tablet Take 1 tablet by mouth three times a day as needed for muscle spasm. (Patient not taking: Reported on 09/20/2024) No current facility-administered medications on file prior to visit. Social History Social History Tobacco Use Smoking status: Every Day Current packs/day: 0.50 Average packs/day: 0.5 packs/day for 15.0 years (7.5 ttl pk-yrs) Types: Cigarettes Smokeless tobacco: Never Vaping Use Vaping status: Never Used Substance Use Topics Alcohol use: Yes Alcohol/week: 1.0 standard drink of alcohol Types: 1 Glasses of Wine (5oz) per week Comment: Social Drug use: No Review of Symptoms REVIEW OF SYSTEMS See HPI EXAM: BP 116/74 Pulse 97 Temp 37.2 ?C (98.9 ?F) Wt 81.4 kg (179 lb 6.4 oz) LMP 08/04/2016 SpO2 98% BMI 31.78 kg/m? General Appearance: Ill appearing, non toxic. Skin: Skin color, texture, turgor normal, no suspicious rashes or lesions. Head: Normocephalic, no masses, lesions, tenderness or abnormalities. Eyes: Anicteric sclera. Pupils are equally round and reactive (more content not included)... [facility] 11-30-2024 History of Presen t illness Narrative Chief Complaint Patient presents with: URI: Patient reports started 2 weeks ago went [facility] and placed on [facility]B Thursday. Reports she is getting worse vs better Cough Head Congestion Headache back ache Chest Pain HPI Macey Campbell is a 34 year old female who presents here today for Above Complaints.. Paitent complaining of dry cough, chest congestion, chest pain with cough and breathing, headache, new loss of taste/smell, nasal congestion, rhinorrhea, fatigue, which started 2 weeks ago. [facility] evaluated [facility] 4 days ago and was treated with Doxycycline for possible sinus infection. Has had loose stools since starting abx and symptoms have not improved. Treating symptoms with sudafed, mucinex, nyquil, dayquil, robitussin, nasal saline, vicks, neti pot. Notes possible sick contacts prior to illness at large work meeting. Has not tested for COVID at home. Denies fever, SOB, wheezing, sore throat, myalgias, sinus pain/pressure, nausea, vomiting, ear pain/fullness, urinary symptoms, joint pain, rash, hemoptysis. Feels like symptoms are worsening with recurrent headache and worsening chest pain. Past medical history, appointments, medications, allergies reviewed. Previous Medical History PAST MEDICAL HISTORY Diagnosis Date GERD without esophagitis 12/31/2021 Obesity, Class I, BMI 30-34.9 12/31/2021 PCOS (polycystic ovarian syndrome) Tobacco use disorder 12/31/2021 Previous Surgical History PAST SURGICAL HISTORY Procedure Laterality Date COLONOSCOPY SCREENING 02/08/2024 EGD W/O BRSH SPEC VARICIES INJ 02/08/2024 LAPS ABD PRTM&OMENTUM DX W/WO SPEC BR/WA SPX 2014 Laparoscopy - for r/o endometriosis, foung to have a cyst PT ED OBSTETRICS & GYNECOLOGY N/A 12/2019 laparoscopic hysterectomy - for endometriosis - Dr. Shelley REMOVAL OF OVARY(S) Right 10/24/2020 ovarian torsion REMOVAL OF OVARY(S) Left 12/2020 Dr Jo SALPINGECTOMY Right 12/27/2016 laparoscopic Right salpingectomy- ECTOPIC Family History FAMILY HISTORY Problem Relation Age of Onset Cervical Cancer Mother other (breast cyst [Other]) Mother Hyperlipidemia Father Hypertension Father No Known Problems Brother ADD/ADHD Brother Stroke Maternal Grandmother No Known Problems Maternal Grandfather Hypertension Paternal Grandmother Hyperlipidemia Paternal Grandmother Skin Cancer Paternal Grandmother Hypertension Paternal Grandfather Heart Attack Paternal Grandfather Diabetes Paternal Grandfather Hyperlipidemia Paternal Grandfather COPD Paternal Grandfather ADD/ADHD Son No Known Problems Half-sister No Known Problems Half-sister Patient Allergies ALLERGIES Allergen Reactions Cleocin [Clindamyci* Rash Sulfa (Sulfonamide * Rash Current Medications Current Outpatient Medications on File Prior to Visit Medication Sig Doxycycline Hyclate 100 mg EC tablet Take 100 mg by mouth two times a day. X 7 days omeprazole (PRILOSEC) 40 mg capsule Take 1 capsule by mouth once daily. rosuvastatin (CRESTOR) 5 mg tablet Take 2 tablets by mouth daily at bedtime. spironolactone (ALDACTONE) 50 mg tablet Take 1 tablet by mouth two times a day. amitriptyline (ELAVIL) 10 mg tablet Take 1 tablet by mouth daily at bedtime. metFORMIN ER (GLUCOPHAGE XR) 500 mg 24 hr tablet Take 1 tablet by mouth daily with breakfast. estradiol (ESTRACE) 1 mg tablet rizatriptan (MAXALT ARMORING MACHINE OPERATOR) 10 mg disintegrating tablet Take 1 tablet by mouth as needed. May repeat in 2 hours if needed predniSONE (DELTASONE) 10 mg tablet 6 tabs po day 1 and 2, then 5 tabs day 3 and 4, 4 tabs day 5 and 6, 3 tabs day 7 and 8, 2 tabs day 9 and 10, 1 tab day 11 and 12. (Patient not taking: Reported on 09/20/2024) cyclobenzaprine (FLEXERIL) 10 mg tablet Take 1 tablet by mouth three times a day as needed for muscle spasm. (Patient not taking: Reported on 09/20/2024) No current facility-administered medications on file prior to visit. Social History Social History Tobacco Use Smoking status: Every Day Current packs/day: 0.50 Average packs/day: 0.5 packs/day for 15.0 years (7.5 ttl pk-yrs) Types: Cigarettes Smokeless tobacco: Never Vaping Use Vaping status: Never Used Substance Use Topics Alcohol use: Yes Alcohol/week: 1.0 standard drink of alcohol Types: 1 Glasses of Wine (5oz) per week Comment: Social Drug use: No Review of Symptoms REVIEW OF SYSTEMS See HPI EXAM: BP 116/74 Pulse 97 Temp 37.2 C (98.9 F) Wt 81.4 kg (179 lb 6.4 oz) LMP 08/04/2016 SpO2 98% BMI 31.78 kg/m General Appearance: Ill appearing, non toxic. Skin: Skin color, texture, turgor normal, no suspicious rashes or lesions. Head: Normocephalic, no masses, lesions, tenderness or abnormalities. Eyes: Anicteric sclera. Pupils are equally round and reactive to light. Extraocular movements are intact. . Ears: External ears normal, canals clear. Nose/Sinuses: Nares normal, septum midline, mucosa normal, no drainage or sinus tenderness. Oropharynx: Lips, mucosa, and tongue normal, teeth and gums normal, oropharynx normal. Neck: Supple, no adenopathy; thyroid symmetric, normal size, no bruits. Lungs: Lungs clear to auscultation. No wheezing, rhonchi, rales.. Heart: RRR without murmur, gallop, or rubs. No ectopy. Musculoskeletal: Patient denies reproducible pain with palpation of sternum or intercostal muscles. . Health Maintenance List Depression Screening Never done Anxiety Screening Never done Hepatitis B Vaccine(1 of 3 - 19+ 3-dose series) Never done Pneumococcal Vaccine(1 of 2 - PCV) Never done Influenza Vaccine(1) due on 07/03/2024 Covid-19 Vaccine( - season) due on 07/03/2024 DTaP,Tdap,Td Vaccine(7 - Td or Tdap) due on 09/04/2026 Hepatitis C Screening Completed HPV Vaccine Aged Out Cervical Cancer Screening Discontinued HIV Screening Discontinued ASSESSMENT/PLAN: 1. Viral URI with cough - ICD9: 465.9, ICD10: J06.9 (primary diagnosis) - Discussed viral etiology and rationale for treatment. - Symptomatic treatment with prn analgesia - Supportive care with fluids and rest - The patient may also use OTC cough and cold meds as needed, warm salt water gargles, throat lozenges and/or OTC throat spray as needed, and nasal saline gtts and suction prn. - Follow up in one week if symptoms persist or sooner if worsening of symptoms - XR CHEST 2V FRONTAL/LAT - BENZONATATE 100 MG CAPSULE - XR CHEST 2V FRONTAL/LAT 2. Bronchitis - ICD9: 490, ICD10: J40 Start albuterol PRN for cough, wheezing, or SOB. Obtain CXR to r/o pneumonia. See above. - ALBUTEROL SULFATE HFA 90 MCG/ACTUATION AEROSOL INHALER - XR CHEST 2V FRONTAL/LAT 3. Chest pain, unspecified type - ICD9: 786.50, ICD10: R07.9 Pleurisy vs costochondritis. VSS and risk for PE would be low with Wells criteria score of 0. Discussed treatment with NSAIDs PRN for pain with cough. Advised ER evaluation severe chest pain, worsening SOB, hemoptysis, tachycardia. Alexander Dickey MD documented in this encounter [facility] 11-27-2024 Evaluation note Diagnosis Onset Date Resolution URI (upper respiratory infection) acute November 27 8:11am [facility] Work Phone: 1(260) 304-879801-22-2025 Surgery Surgical operation note* Brief Op Note - Bjorn Sanchez APRN.FRANCHISE DEVELOPMENT MANAGER - 11/23/2024 11:25 AM EST BRIEF OP NOTE LOG ID: [id number] Surgery/Procedure Date: 11/23/2024 Incision/Procedure Start Time: 11:10 AM Incision Close/Procedure End Time: 11:14 AM Surgeon(s)/Proceduralist(s) and Compilation Clerk(s): Bjorn Sanchez APRN.CNP Procedure(s): Imaging guided diagnostic left hip pain injection Anesthesia: local 5 ml lidocaine Findings: Successful left hip pain injection of 5 cc Lidocaine 1%. Pre-procedure pain of 7/10 Post-procedure pain of 4/10 Estimated Blood Loss: <1 ml Specimens: None Complications: None Pre-Op/Pre-Procedure Diagnosis: left hip pain Post-Op/Post-Procedure Diagnosis: same SIGNATURE: Bjorn Sanchez APRN.CNP PATIENT NAME: Macey Campbell DATE: November 23, 2024 TIME: 11:25 AM PAGER/CONTACT #: [facility] Work Phone: 1(104) 214-938801-22-2025 Surgical operation note* Brief Op Note - Bjorn Sanchez APRN.CNP - 11/23/2024 11:25 AM EST BRIEF OP NOTE LOG ID: [id number] Surgery/Procedure Date: 11/23/2024 Incision/Procedure Start Time: 11:10 AM Incision Close/Procedure End Time: 11:14 AM Surgeon(s)/Proceduralist(s) and Compilation Clerk(s): Bjorn Sanchze APRN.CNP Procedure(s): Imaging guided diagnostic left hip pain injection Anesthesia: local 5 ml lidocaine Findings: Successful left hip pain injection of 5 cc Lidocaine 1%. Pre-procedure pain of 7/10 Post-procedure pain of 4/10 Estimated Blood Loss: <1 ml Specimens: None Complications: None Pre-Op/Pre-Procedure Diagnosis: left hip pain Post-Op/Post-Procedure Diagnosis: same SIGNATURE: Bjorn Sanchez APRN.CNP PATIENT NAME: Macey Campblel DATE: November 23, 2024 TIME: 11:25 AM PAGER/CONTACT #: [facility] Note * Telephone Encounter - Krystyna Gipson - 11/01/2024 12:45 PM EST Order and patient information sent to asp/inj scheduling team. [facility]12-31-2024 Miscellaneous Notes* Telephone Encounter - Krystyna Gipson - 11/01/2024 12:45 PM EST Order and patient information sent to asp/inj scheduling team. * Telephone Encounter - Edgar Altamirano RN - 11/01/2024 12:37 PM EST Pt needs to be scheduled for a image guided left hip injection. Can you please forward to radiology- thank you!! * Telephone Encounter - Edgar Altamirano RN - 11/01/2024 12:34 PM EST Called and left VM. Per Maggy's last office note pt is suppose to have image guided injection for her left hip however I think she was mistakenly scheduled the injection with Maggy- which she does not do. I will forward a request to front office assistant girls to forward to radiology. I left on VM that Radiology would be the one to call to schedule the appt with the patient. [facility] Telephone encounter Note * Telephone Encounter - Edgar Altamirano RN - 11/01/2024 12:37 PM EST Pt needs to be scheduled for a image guided left hip injection. Can you please forward to radiology- thank you!! [facility]12-31-[facility]24 Telephone encounter Note* Telephone Encounter - Edgar Altamirano RN - 11/01/2024 12:34 PM EST Called and left VM. Per Maggy's last office note pt is suppose to have image guided injection for her left hip however I think she was mistakenly scheduled the injection with Maggy- which she does not do. I will forward a request to front office assistant girls to forward to radiology. I left on VM that Radiology would be the one to call to schedule the appt with the patient. [facility]12-09-2024 NoteHNO ID: [id number] Author: MAGGY HAYES PA-C Service: ? Author Type: Physician Compilation Clerk Type: Progress Notes Filed: 10/10/2024 11:44 Note Text: Maggy Hayes PA-C Department of Orthopaedics Orthopaedics [address] [facility] [address] Dept: [phone] Dept October 10, 2024 CHIEF COMPLAINT: Established Patient and Follow Up of the Left Hip Ms. Macey Campbell is a 34 year old female who presents today to discuss the results of her left hip MRI. Patient started having pain which started insidiously this past April, she was participating in physical therapy but felt as though the pain is getting worse. She has tried multiple oral anti-inflammatories which are of no benefit. Patient continues to have persistent pain in the left buttock region which wraps around into the left groin. Pain does not radiate down the leg, denies locking or catching in the hip. Pain is worse when she is standing, squatting or climbing stairs. She reports some swelling in the groin region. 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 ASSESSMENT: M25.552 Pain of left hip (primary encounter diagnosis) PLAN: She did have some mild degeneration of the anterior labrum but no discernible tear in the hip labrum. Remainder of the MRI was normal, patient is extremely discouraged. We discussed doing an intra-articular lidocaine only injection just to see if this area of scuffed labrum may be causing her pain. I asked her to pay close attention to any improvement that she may receive following the injection. Hesitant to do a corticosteroid injection as her MRI is fairly normal. If she does get improvement with the lidocaine injection then I may consider referring her to sports. Ms. Macey Campbell was advised as to contrast therapies and/or to take analgesics/anti-inflammatories as needed and all contraindications were reviewed. OBJECTIVE: Ms. Macey Campbell is a pleasant 34 year old in no apparent distress. Gen:LMP 08/04/2016 nl development, obese, no deformities ENT: Normocephalic, normal hearing, moist mucosa CV: Pulses:DP/PT= 2+ and symmetric, capillary refill < 2 secs, no peripheral edema/varicosities Skin: no rash, bruising or lesions. Good turgor. Psych: cooperative and appropriate, alert and oriented x 3, good mood and affect. Musculoskeletal: Musculoskeletal: HIP EXAM: Left: ROM: Extension: full extension Flexion: 100 degrees Internal Rotation: 25 degrees External Rotation: 30 degrees Abduction: 30 degrees Adduction: 30 degrees Strength: Pain with resisted abduction and Pain with resisted hip flexion Palpation: Tenderness over left greater trochanter and SI joint Log roll: non-painful. Straight leg raise: Negative Neurovascular Status: Sensation Intact, Moves foot and ankle up AND down, and 2+ dorsalis pedis Imaging: IMPRESSION: Normal MRI of the left hip. Big Machine Consultant: ADILENE Transcribe Date/Time: Sep 23 2024 9:02A Dictated by : RAISSA PALMER MD This examination was interpreted and the report reviewed and electronically signed by: GRACE REYES MD on Sep 23 2024 3:28PM EST Results-Findings * * *Final Report* * * DATE OF EXAM: Sep 23 2024 7:35AM [id number] - MRI HIP WO IVCON LT / PROCEDURE REASON: Pain of left hip * * * * Physician Interpretation * * * * EXAMINATION: MRI HIP WO IVCON LT HISTORY: Pain of left hip, tenderness. Concern for intra-articular issue versus piriformis syndrome. TECHNIQUE: Routine multiplanar MRI of the hip without contrast COMPARISON: Radiograph left hip 09/08/2024 RESULT: Hip joints: Left hip: Mild fraying with increased signal in the anterior labrum (7:16 for example). No discrete labral tear. The articular cartilage is preserved. There is no joint effusion. Large yyqrr-fx-[id number] images of the right hip are unremarkable. Evaluation of articular cartilage and labrum is limited. Bone Marrow: No fracture or suspicious marrow replacing lesions. Sacroiliac joints: Within normal limits. Pubic symphysis: Within normal limits. Tendons: The iliopsoas, hamstring, gluteal, and rectus femoris tendons are intact. Muscles: Within normal limits. Other: Hysterectomy Localizer images: No significant additional findings. Supporting Subjective Information Below: Past Surgical History: PAST SURGICAL HISTORY Procedure Laterality Date COLONOSCOPY SCREENING 02/08/2024 EGD W/O BRSH SPEC VARICIES INJ 02/08/2024 LAPS ABD PRTMANDOMENTUM DX W/WO SPEC BR/WA SPX 2014 Laparoscopy - for r/o endometriosis, foung to have a cyst PT ED OBSTETRICS AND GYNECOLOGY N/A 12/2019 laparoscopic hysterectomy - for endometriosis - Dr. Shelley REMOVAL OF OVARY(S) Right 10/24/2020 ovarian torsion REMOVAL OF OVARY(S) Left 12/2020 Dr Jo SALPINGECTOMY Right 12/27/2016 laparoscopic Right salpingectomy- ECTOPIC Medications: Current Outpatient Medicati (more content not included)...[facility]12-09-2024 History of Present illness Narrative* Maggy Hayes PA-C - 10/10/2024 11:41 AM EST Maggy Hayes PA-C Department of Orthopaedics Orthopaedics [address] [facility] [address] Dept: [phone] Dept October 10, 2024 CHIEF COMPLAINT: Established Patient and Follow Up of the Left Hip Ms. Macey Campbell is a 34 year old female who presents today to discuss the results of her left hip MRI. Patient started having pain which started insidiously this past April, she was participatingin physical therapy but felt as though the pain is getting worse. She has tried multiple oral anti-i nflammatories which are of no benefit. Patient continues to have persistent pain in the left buttock region which wraps around into the left groin. Pain does not radiate down the leg, denies locking or catching in the hip. Pain is worse when she is standing, squatting or climbing stairs. She reports some swelling in the groin region. 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 ASSESSMENT: M25.552 Pain of left hip (primary encounter diagnosis) PLAN: She did have some mild degeneration of the anterior labrum but no discernible tear in the hiplabrum. Remainder of the MRI was normal, patient is extremely discouraged. We discussed doing an intra-articular lidocaine only injection just to see if this area of scuffed labrum may be causing herpain. I asked her to pay close attention to any improvement that she may receive following the injection. Hesitant to do a corticosteroid injection as her MRI is fairly normal. If she does get improvement with the lidocaine injection then I may consider referring her to sports. Ms. Macey Campbell was advised as to contrast therapies and/or to take analgesics/anti-inflammatories as needed and all contraindications were reviewed. OBJECTIVE: Ms. Macey Campbell is a pleasant 34 year old in no apparent distress. Gen:LMP 08/04/2016 nl development, obese, no deformities ENT: Normocephalic, normal hearing, moist mucosa CV: Pulses:DP/PT= 2+ and symmetric, capillary refill < 2 secs, no peripheral edema/varicosities Skin: no rash, bruising or lesions. Good turgor. Psych: cooperative and appropriate, alert and oriented x 3, good mood and affect. Musculoskeletal: Musculoskeletal: HIP EXAM: Left: ROM: Extension: full extension Flexion: 100 degrees Internal Rotation: 25 degrees External Rotation: 30 degrees Abduction: 30 degrees Adduction: 30 degrees Strength: Pain with resisted abduction and Pain with resisted hip flexion Palpation: Tenderness over left greater trochanter and SI joint Log roll: non-painful. Straight leg raise: Negative Neurovascular Status: Sensation Intact, Moves foot and ankle up & down, and 2+ dorsalis pedis Imaging: IMPRESSION: Normal MRI of the left hip. Big Machine Consultant: PSCB Transcribe Date/Time: Sep 23 2024 9:02A Dictated by : RAISSA PALMER MD This examination was interpreted and the report reviewed and electronically signed by: GRACE REYES MD on Sep 23 2024 3:28PM EST Results-Findings * * *Final Report* * * DATE OF EXAM: Sep 23 2024 7:35AM [id number] - MRI HIP WO IVCON LT / PROCEDURE REASON: Pain of left hip * * * * Physician Interpretation * * * * EXAMINATION: MRI HIP WO IVCON LT HISTORY: Pain of left hip, tenderness. Concern for intra-articular issue versus piriformis syndrome. TECHNIQUE: Routine multiplanar MRI of the hip without contrast COMPARISON: Radiograph left hip 09/08/2024 RESULT: Hip joints: Left hip: Mild fraying with increased signal in the anterior labrum (7:16 for example). No discrete labral tear. The articular cartilage is preserved. There is no joint effusion. Large qidak-pi-cucc images of the right hip are unremarkable. Evaluation of articular cartilage and labrum is limited. Bone Marrow: No fracture or suspicious marrow replacing lesions. Sacroiliac joints: Within normal limits. Pubic symphysis: Within normal limits. Tendons: The iliopsoas, hamstring, gluteal, and rectus femoris tendons are intact. Muscles: Within normal limits. Other: Hysterectomy Localizer images: No significant additional findings. Supporting Subjective Information Below: Past Surgical History: PAST SURGICAL HISTORY Procedure Laterality Date COLONOSCOPY SCREENING 02/08/2024 EGD W/O BRSH SPEC VARICIES INJ 02/08/2024 LAPS ABD PRTM&OMENTUM DX W/WO SPEC BR/WA SPX 2014 Laparoscopy - for r/o endometriosis, foung to have a cyst PT ED OBSTETRICS & GYNECOLOGY N/A 12/2019 laparoscopic hysterectomy - for endometriosis - Dr. Shelley REMOVAL OF OVARY(S) Right 10/24/2020 ovarian torsion REMOVAL OF OVARY(S) Left 12/2020 Dr Jo SALPINGECTOMY Right 12/27/2016 laparoscopic Right salpingectomy- ECTOPIC Medications: Current Outpatient Medications Medication Sig etodolac (LODINE) 400 mg tablet Take 1 tablet by mouth two times a day. omeprazole (PRILOSEC) 40 mg capsule Take 1 capsule by mouth once daily. rosuvastatin (CRESTOR) 5 mg tablet Take 2 tablets by mouth daily at bedtime. spironolactone (ALDACTONE) 50 mg tablet Take 1 tablet by mouth two times a day. amitriptyline (ELAVIL) 10 mg tablet Take 1 tablet by mouth daily at bedtime. metFORMIN ER (GLUCOPHAGE XR) 500 mg 24 hr tablet Take 1 tablet by mouth daily with breakfast. estradiol (ESTRACE) 1 mg tablet predniSONE (DELTASONE) 10 mg tablet 6 tabs po day 1 and 2, then 5 tabs day 3 and 4, 4 tabs day 5 and 6, 3 tabs day 7 and 8, 2 tabs day 9 and 10, 1 tab day 11 and 12. (Patient not taking: Reported on 09/20/2024) cyclobenzaprine (FLEXERIL) 10 mg tablet Take 1 tablet by mouth three times a day as needed for muscle spasm. (Patient not taking: Reported on 09/20/2024) rizatriptan (MAXALT ARMORING MACHINE OPERATOR) 10 mg disintegrating tablet Take 1 tablet by mouth as needed. May repeat in 2 hours if needed No current facility-administered medications for this visit. Allergies: Cleocin [Clindamycin] and Sulfa (Sulfonamide Antibiotics) ROS: General (negative for fatigue, malaise, weight loss/gain) HEENT (negative for headache, earache, recent vision changes, sinus pain, sore throat) Respiratory (no recent shortness of breath, hemoptysis) CV (negative for chest tightness, palpitations) Musculoskeletal (see HPI) Psych (no depression, anxiety) This note was partially generated using WeVideo[employer]It voice recognition system, and there may be some incorrect words, spellings, and punctuation that were not noted in checking the note before saving. Maggy Hayes PA-C * Maggi Skinner MA - 10/10/2024 10:19 AM EST AMB ROOMING INTAKE FLOWSHEET DATA Pain Pain Level: 7 Pain Location: Hip-Left Description: Aching, Cramping, Shooting, Stiffness, Tightness Duration Amount of Time: 6 Duration Units: Months Frequency: Continuous Intervention/Comfort measure: Medication, Reposition, Cold, Exercise, Heat, Massage Patient here today to discuss MRI results of the left hip. She continues having pain. [facility] NoteHNO ID: [id number] Author: MAGGI SKINNER MA Service: ? Author Type: Furniture Maker Type: Progress Notes Filed: 10/10/2024 11:44 Note Text: AMB ROOMING INTAKE FLOWSHEET DATA Pain Pain Level: 7 Pain Location: Hip-Left Description: Aching, Cramping, Shooting, Stiffness, Tightness Duration Amount of Time: 6 Duration Units: Months Frequency: Continuous Intervention/Comfort measure: Medication, Reposition, Cold, Exercise, Heat, Massage Patient here today to discuss MRI results of the left hip. She continues having pain.[facility]11-29-2024 Telephone encounter Note* Telephone Encounter - Maggy Hayes PA-C - 09/30/2024 1:15 PM EST I sent some etodolac to her pharmacy ([facility]), she can try that instead of the meloxicam. [facility]11-29-2024 Miscellaneous Notes* Telephone Encounter - Maggy Hayes PA-C - 09/30/2024 1:15 PM EST I sent some etodolac to her pharmacy ([facility]), she can try that instead of the meloxicam. documented in this encounterFlower [facility]11-22-[facility]24 History of Present illness Narrative* Elaina Garza RT(R) - 09/23/2024 7:00 AM EST Radiology Service Progress Note PATIENT NAME: Macey Campbell DATE OF SERVICE: September 23, 2024 TIME: 7:15 AM PATIENT IDENTITY VERIFICATION COMPLETED USING TWO (2) IDENTIFIERS: Name and Date of confirmedby patient verbally. FALL SCREENING: Has the patient had 2 falls in the last year or 1 fall with injury or currently using an Ambulatory Assistive Device (Walker, Cane, Wheelchair, Crutches, etc.)? No PATIENT GENDER DATA: Female. status: : No status: NO. PATIENT RELEVANT IMPLANT DATA REVIEWED: Yes PATIENT PRESENTS WITH AN IMPLANTABLE OR ATTACHED CLINICAL RESEARCH SPEC: No RADIOLOGY DEPARTMENT: MR; Exam(s) Completed: Lower MSK: Hip, left PERIPHERAL IV DATA: Not applicable SIGNED BY: RASHEEDA Patton) September 23, 2024 7:15 AM documented in this encounterFlower Hospital11-22-2024 NoteHNO ID: [id number] Author: ELAINA GARZA RT(R) Service: ? Author Type: Technologist Type: Progress Notes Filed: 09/23/2024 07:15 Note Text: Radiology Service Progress Note PATIENT NAME: Macey Campbell DATE OF SERVICE: September 23, 2024 TIME: 7:15 AM PATIENT IDENTITY VERIFICATION COMPLETED USING TWO (2) IDENTIFIERS: Name and Date of confirmed by patient verbally. FALL SCREENING: Has the patient had 2 falls in the last year or 1 fall with injury or currently using an Ambulatory Assistive Device (Walker, Cane, Wheelchair, Crutches, etc.)? No PATIENT GENDER DATA: Female. status: : No status: NO. PATIENT RELEVANT IMPLANT DATA REVIEWED: Yes PATIENT PRESENTS WITH AN IMPLANTABLE OR ATTACHED CLINICAL RESEARCH SPEC: No RADIOLOGY DEPARTMENT: MR; Exam(s) Completed: Lower MSK: Hip, left PERIPHERAL IV DATA: Not applicable SIGNED BY: RASHEEDA Patton) September 23, 2024 7:15 [facility]11-19-2024 NoteHNO ID: [id number] Author: CHRISTIAN VALDES PA-C Service: ? Author Type: Physician Compilation Clerk Type: Progress Notes Filed: 09/20/2024 12:13 Note Text: 09/20/2024 Patient presents with: Ear Problem: Pain in right ear x 2 days worsening SUBJECTIVE: This is a 34 year old that is here today for Complaint(s) of right ear pain x 2 days. Started itchy and irritated, and then developed pain. Described as a more deep pain. No recent swimming. No recent URI symptoms. Denies fever/chills, tinnitus, dizziness, nasal congestion, cough. PAST MEDICAL HISTORY Diagnosis Date GERD without esophagitis 12/31/2021 Obesity, Class I, BMI 30-34.9 12/31/2021 PCOS (polycystic ovarian syndrome) Tobacco use disorder 12/31/2021 ALLERGIES Cleocin [Clindamycin] and Sulfa (Sulfonamide Antibiotics) MEDICATIONS Current Outpatient Medications Medication Sig omeprazole (PRILOSEC) 40 mg capsule Take 1 capsule by mouth once daily. rosuvastatin (CRESTOR) 5 mg tablet Take 2 tablets by mouth daily at bedtime. spironolactone (ALDACTONE) 50 mg tablet Take 1 tablet by mouth two times a day. amitriptyline (ELAVIL) 10 mg tablet Take 1 tablet by mouth daily at bedtime. metFORMIN ER (GLUCOPHAGE XR) 500 mg 24 hr tablet Take 1 tablet by mouth daily with breakfast. estradiol (ESTRACE) 1 mg tablet rizatriptan (MAXALT ARMORING MACHINE OPERATOR) 10 mg disintegrating tablet Take 1 tablet by mouth as needed. May repeat in 2 hours if needed predniSONE (DELTASONE) 10 mg tablet 6 tabs po day 1 and 2, then 5 tabs day 3 and 4, 4 tabs day 5 and 6, 3 tabs day 7 and 8, 2 tabs day 9 and 10, 1 tab day 11 and 12. (Patient not taking: Reported on 09/20/2024) cyclobenzaprine (FLEXERIL) 10 mg tablet Take 1 tablet by mouth three times a day as needed for muscle spasm. (Patient not taking: Reported on 09/20/2024) No current facility-administered medications for this visit. SOCIAL HISTORY Social History Tobacco Use Smoking status: Every Day Current packs/day: 0.50 Average packs/day: 0.5 packs/day for 15.0 years (7.5 ttl pk-yrs) Types: Cigarettes Smokeless tobacco: Never Vaping Use Vaping status: Never Used Substance Use Topics Alcohol use: Yes Alcohol/week: 1.0 standard drink of alcohol Types: 1 Glasses of Wine (5oz) per week Comment: Social Drug use: No REVIEW OF SYSTEMS See HPI OBJECTIVE: BP 126/80 Pulse 96 Temp 36.6 ?C (97.8 ?F) Resp 16 Wt 82.6 kg (182 lb 1.6 oz) LMP 08/04/2016 SpO2 98% BMI 32.26 kg/m? APPEARANCE Well appearing, alert, in no acute distress, well-hydrated, well nourished. EYES PERRLA, conjunctiva and sclera normal. EARS External ears normal, canals clear. TMs normal NIYAH. Right with small effusion noted, posterior aspect. No erythema, bulging. Normal landmarks and light reflex. NOSE/SINUS Nares normal. Septum midline. Mucosa normal. No drainage or sinus tenderness. THROAT normal, no erythema NECK Supple, no adenopathy ASSESSMENT/PLAN: 1. Acute otalgia, right - ICD9: 388.70, ICD10: H92.01 Advise trial of flonase/sudafed Tylenol/motrin prn F/u if not resolving in 5-7 days, sooner if worsening Reviewed red flags and when to seek care sooner including fever >100, worsening pain The patient indicates understanding of these issues and agrees with the plan. Consider ENT referral if not resolving. [facility]11-19-2024 History of Present illness Narrative* Christian Valdes PA-C - 09/20/2024 12:02 PM EST 09/20/2024 Patient presents with: Ear Problem: Pain in right ear x 2 days worsening SUBJECTIVE: This is a 34 year old that is here today for Complaint(s) of right ear pain x 2 days. Started itchy and irritated, and then developed pain. Described as a more deep pain. No recent swimming. No recent URI symptoms. Denies fever/chills, tinnitus, dizziness, nasal congestion, cough. PAST MEDICAL HISTORY Diagnosis Date GERD without esophagitis 12/31/2021 Obesity, Class I, BMI 30-34.9 12/31/2021 PCOS (polycystic ovarian syndrome) Tobacco use disorder 12/31/2021 ALLERGIES Cleocin [Clindamycin] and Sulfa (Sulfonamide Antibiotics) MEDICATIONS Current Outpatient Medications Medication Sig omeprazole (PRILOSEC) 40 mg capsule Take 1 capsule by mouth once daily. rosuvastatin (CRESTOR) 5 mg tablet Take 2 tablets by mouth daily at bedtime. spironolactone (ALDACTONE) 50 mg tablet Take 1 tablet by mouth two times a day. amitriptyline (ELAVIL) 10 mg tablet Take 1 tablet by mouth daily at bedtime. metFORMIN ER (GLUCOPHAGE XR) 500 mg 24 hr tablet Take 1 tablet by mouth daily with breakfast. estradiol (ESTRACE) 1 mg tablet rizatriptan (MAXALT ARMORING MACHINE OPERATOR) 10 mg disintegrating tablet Take 1 tablet by mouth as needed. May repeat in 2 hours if needed predniSONE (DELTASONE) 10 mg tablet 6 tabs po day 1 and 2, then 5 tabs day 3 and 4, 4 tabs day 5 and 6, 3 tabs day 7 and 8, 2 tabs day 9 and 10, 1 tab day 11 and 12. (Patient not taking: Reported on 09/20/2024) cyclobenzaprine (FLEXERIL) 10 mg tablet Take 1 tablet by mouth three times a day as needed for muscle spasm. (Patient not taking: Reported on 09/20/2024) No current facility-administered medications for this visit. SOCIAL HISTORY Social History Tobacco Use Smoking status: Every Day Current packs/day: 0.50 Average packs/day: 0.5 packs/day for 15.0 years (7.5 ttl pk-yrs) Types: Cigarettes Smokeless tobacco: Never Vaping Use Vaping status: Never Used Substance Use Topics Alcohol use: Yes Alcohol/week: 1.0 standard drink of alcohol Types: 1 Glasses of Wine (5oz) per week Comment: Social Drug use: No REVIEW OF SYSTEMS See HPI OBJECTIVE: BP 126/80 Pulse 96 Temp 36.6 C (97.8 F) Resp 16 Wt 82.6 kg (182 lb 1.6 oz) LMP 08/04/2016 SpO2 98% BMI 32.26 kg/m APPEARANCE Well appearing, alert, in no acute distress, well-hydrated, well nourished. EYES PERRLA, conjunctiva and sclera normal. EARS External ears normal, canals clear. TMs normal NIYAH. Right with small effusion noted, posterioraspect. No erythema, bulging. Normal landmarks and light reflex. NOSE/SINUS Nares normal. Septum midline. Mucosa normal. No drainage or sinus tenderness. THROAT normal, no erythema NECK Supple, no adenopathy ASSESSMENT/PLAN: 1. Acute otalgia, right - ICD9: 388.70, ICD10: H92.01 Advise trial of flonase/sudafed Tylenol/motrin prn F/u if not resolving in 5-7 days, sooner if worsening Reviewed red flags and when to seek care sooner including fever >100, worsening pain The patient indicates understanding of these issues and agrees with the plan. Consider ENT referral if not resolving. Christian Valdes PA-C documented in this encounterFlower Hospital11-14-2024 NoteHNO ID: [id number] Author: ?, ?, ? Service: ? Author Type: ? Type: Progress Notes Filed: 09/15/2024 12:38 Note Text: POPULATION HEALTH NAVIGATION OUTREACH Action/FYI LVM AND sent My Chart message. Reason for Outreach Care Gap/HCC or Scheduling Wellness Visits Care Gaps due: CARLOS Patient Contacted: Unable or unnecessary to reach patient: Left message Navigation Signature: Alfie Casarez September 15, 2024 12:37 [facility]11-14-2024 History of Present illness Narrative* Alfie Casarez - 09/15/2024 12:37 PM EST POPULATION HEALTH NAVIGATION OUTREACH Action/FYI LVM & sent My Chart message. Reason for Outreach Care Gap/HCC or Scheduling Wellness Visits Care Gaps due: CARLOS Patient Contacted: Unable or unnecessary to reach patient: Left message Navigation Signature: Alfie Casarez September 15, 2024 12:37 PM documented in this encounterFlower Hospital11-14-2024 NotePatient Outreach (NETNAV) MACEY CAMPBELL ([id number]) 1990 F Date Time Provider Department 09/15/24 NO PCP NETNAV During your visit today, we recorded the following information about you: Alfie Casarez 09/15/2024 12:38 PM Signed POPULATION HEALTH NAVIGATION OUTREACH Action/FYI LVM AND sent My Chart message. Reason for Outreach Care Gap/HCC or Scheduling Wellness Visits Care Gaps due: CARLOS Patient Contacted: Unable or unnecessary to reach patient: Left message Navigation Signature: Alfie Casarez September 15, 2024 12:37 PM Allergies As of Date: 09/15/2024 Noted Allergy Reaction CLEOCIN (CLINDAMYCIN) 10/16/2021 2 - Rash SULFA (SULFONAMIDE ANTIBIOTICS) 12/13/2010 2 - Rash Date Reviewed: 06/07/2024 Reviewed by: Kofi Yu LPN - Fully Assessed Prescriptions as of 09/15/2024 - predniSONE (DELTASONE) 10 mg tablet 6 tabs po day 1 and 2, then 5 tabs day 3 and 4, 4 tabs day 5 and 6, 3 tabs day 7 and 8, 2 tabs day 9 and 10, 1 tab day 11 and 12. - cyclobenzaprine (FLEXERIL) 10 mg tablet Take 1 tablet by mouth three times a day as needed for muscle spasm. - omeprazole (PRILOSEC) 40 mg capsule Take 1 capsule by mouth once daily. - rosuvastatin (CRESTOR) 5 mg tablet Take 2 tablets by mouth daily at bedtime. - spironolactone (ALDACTONE) 50 mg tablet Take 1 tablet by mouth two times a day. - amitriptyline (ELAVIL) 10 mg tablet Take 1 tablet by mouth daily at bedtime. - metFORMIN ER (GLUCOPHAGE XR) 500 mg 24 hr tablet Take 1 tablet by mouth daily with breakfast. - estradiol (ESTRACE) 1 mg tablet - rizatriptan (MAXALT ARMORING MACHINE OPERATOR) 10 mg disintegrating tablet Take 1 tablet by mouth as needed. May repeat in 2 hours if needed Problem List As Of Date 09/15/2024 Noted Resolved Gastroenteritis [K52.9] 12/13/2010 Abdominal pain, acute, right upper quadrant [R1*12/13/2010 Tachycardia [R00.0] 12/13/2010 Menstrual irregularity [N92.6] 12/13/2010 Infertility associated with anovulation [N97.0] 09/13/2012 PCOS (polycystic ovarian syndrome) [E28.2] 09/27/2012 12/31/2021 Pain, upper back [M54.9] 09/07/2013 01/21/2022 Pelvic pain in female [R10.2] 10/31/2013 Pain in joint, shoulder region [M25.519] 01/10/2015 01/21/2022 GERD without esophagitis [K21.9] 12/31/2021 Obesity, Class I, BMI 30-34.9 [E66.811] 12/31/2021 Tobacco use disorder [F17.200] 12/31/2021 Hyperglycemia [R73.9] 01/21/2022 Mixed hyperlipidemia [E78.2] 04/16/2022 Acute back pain with sciatica, left [M54.42] 06/28/2024 Pain of left hip joint [M25.552] 06/28/2024 Encounter Status:Closed by ALFIE CASAREZ on 09/15/24[facility]11-07-2024 NoteHNO ID: [id number] Author: MAGGY HAYES PA-C Service: ? Author Type: Physician Compilation Clerk Type: Progress Notes Filed: 09/08/2024 10:32 Note Text: Maggy Hayes PA-C Department of Orthopaedics Orthopaedics [address] [place] [id number] Dept: [phone] September 08, 2024 CHIEF COMPLAINT: New and Pain of the Left Hip Ms. Macey Campbell is a 34 year old female who presents with pain in her left hip which started insidiously this past April. She was seen by her primary care provider and placed on an oral steroid, pain persist, patient was referred to PT. She has been participating in physical therapy for the past several months and feels as though things are getting worse. She also tried oral meloxicam which is of no benefit. She is having pain in her left buttock region which wraps around into the left groin region. Pain is worse when she is standing, squatting or climbing stairs. She feels as though she has some swelling in the groin region. X-rays of both the hip and lumbar spine are benign. 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 Denies any locking or catching in the hip. Pain does not radiate down the left leg. ASSESSMENT: M25.552 Pain of left hip (primary encounter diagnosis) PLAN: Patient has quite a bit of tightness in the left hip, I suspect she may have some piriformis syndrome. Will get an MRI of the hip to rule out any pathology or intra-articular issues. I would like to get her on a longer steroid taper in the meantime to help with pain and discomfort. She will follow-up with me in [place] to discuss MRI results. Will continue to monitor patient for Pain of left hip (primary encounter diagnosis), patient to schedule visit as per follow up discussed. Ms. Macey Campbell was advised as to contrast therapies and/or to take analgesics/anti-inflammatories as needed and all contraindications were reviewed. OBJECTIVE: Ms. Macey Campbell is a pleasant 34 year old in no apparent distress. Gen:LMP 08/04/2016 nl development, obese, no deformities ENT: Normocephalic, normal hearing, moist mucosa CV: Pulses:DP/PT= 2+ and symmetric, capillary refill < 2 secs, no peripheral edema/varicosities Skin: no rash, bruising or lesions. Good turgor. Psych: cooperative and appropriate, alert and oriented x 3, good mood and affect. Musculoskeletal: HIP EXAM: Left: ROM: Extension: full extension Flexion: 100 degrees Internal Rotation: 25 degrees External Rotation: 30 degrees Abduction: 30 degrees Adduction: 30 degrees Strength: Pain with resisted abduction and Pain with resisted hip flexion Palpation: Tenderness over left greater trochanter and SI joint Log roll: non-painful. Straight leg raise: Negative Neurovascular Status: Sensation Intact, Moves foot and ankle up AND down, and 2+ dorsalis pedis Imaging: IMPRESSION: Negative left hip x-ray and AP view pelvis. Big Machine Consultant: ADILENE Transcribe Date/Time: Jan 26 2023 10:50A Dictated by : DEMETRICE SABA MD This examination was interpreted and the report reviewed and electronically signed by: DEMETRICE SABA MD on Jan 26 2023 10:54AM EST Results-Findings * * *Final Report* * * DATE OF EXAM: Jan 26 2023 10:27AM WOX [id number] - XR HIP 3V PELV+ AP/LAT LT / PROCEDURE REASON: Acute hip pain, left * * * * Physician Interpretation * * * * EXAM TITLE: XR HIP 3V PELV+ AP/LAT LT EXAM DATE/TIME: 01/26/2023 10:27 AM COMPARISON: None. CLINICAL INDICATION/HISTORY: Hip pain. TECHNIQUE: AP and frog lateral views of the left hip and AP view of the pelvis are presented. FINDINGS: No acute fractures or subluxations are noted in the left hip. The left hip joint space is maintained, without obvious osteophyte formation. The visualized pelvic bones are intact. There is no significant soft tissue swelling. IMPRESSION: Negative lumbar spine X-ray. Big Machine Consultant: PSCB Transcribe Date/Time: May 06 2024 10:50A Dictated by : DEMETRICE SABA MD This examination was interpreted and the report reviewed and electronically signed by: DEMETRICE SABA MD on May 06 2024 10:50AM EST Results-Findings * * *Final Report* * * DATE OF EXAM: May 02 2024 8:48AM WOX [id number] - XR LUMBAR 3V AP/LAT/L5-S1 / PROCEDURE REASON: Acute left-sided low back pain with left-sided sciatica * * * * Physician Interpretation * * * * EXAM TITLE: XR LUMBAR 3V AP/LAT/L5-S1 EXAM DATE/TIME: 05/02/2024 8:48 AM COMPARISON: None. CLINICAL INDICATION/HISTORY: Low back pain. TECHNIQUE: AP, lateral and cone down lateral views of the lumbar spine are presented. FINDINGS: There are five ovn-vue-ncuwqpy lumbar vertebrae. No fracture or subluxations are noted. The disc spaces are well preserved. There is no significant osteophyte formation. Supporting Subjective Information Below: Past Surgical History: PAST SURGICAL HISTORY Procedure Laterality Date (more content not included)...[facility]11-07-2024 History of Present illness Narrative* Maggy Hayes PA-C - 09/08/2024 9:24 AM EST Maggy Hayes PA-C Department of Orthopaedics Orthopaedics [address] [address] Dept: [phone] September 08, 2024 CHIEF COMPLAINT: New and Pain of the Left Hip Ms. Macey Campbell is a 34 year old female who presents with pain in her left hip which started insidiously this past April. She was seen by her primary care provider and placed on an oral steroid, pain persist, patient was referred to PT. She has been participating in physical therapy for the past several months and feels as though things are getting worse. She also tried oral meloxicam which is of no benefit. She is having pain in her left buttock region which wraps around into the left groin region. Pain is worse when she is standing, squatting or climbing stairs. She feels as though she has some swelling in the groin region. X-rays of both the hip and lumbar spine are benign. 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 Denies any locking or catching in the hip. Pain does not radiate down the left leg. ASSESSMENT: M25.552 Pain of left hip (primary encounter diagnosis) PLAN: Patient has quite a bit of tightness in the left hip, I suspect she may have some piriformis syndrome. Will get an MRI of the hip to rule out any pathology or intra-articular issues. I would like to get her on a longer steroid taper in the meantime to help with pain and discomfort. She will follow-up with me in [place] to discuss MRI results. Will continue to monitor patient for Pain of left hip (primary encounter diagnosis), patient to schedule visit as per follow up discussed. Ms. Macey Campbell was advised as to contrast therapies and/or to take analgesics/anti-inflammatories as needed and all contraindications were reviewed. OBJECTIVE: Ms. Macey Campbell is a pleasant 34 year old in no apparent distress. Gen:LMP 08/04/2016 nl development, obese, no deformities ENT: Normocephalic, normal hearing, moist mucosa CV: Pulses:DP/PT= 2+ and symmetric, capillary refill < 2 secs, no peripheral edema/varicosities Skin: no rash, bruising or lesions. Good turgor. Psych: cooperative and appropriate, alert and oriented x 3, good mood and affect. Musculoskeletal: HIP EXAM: Left: ROM: Extension: full extension Flexion: 100 degrees Internal Rotation: 25 degrees External Rotation: 30 degrees Abduction: 30 degrees Adduction: 30 degrees Strength: Pain with resisted abduction and Pain with resisted hip flexion Palpation: Tenderness over left greater trochanter and SI joint Log roll: non-painful. Straight leg raise: Negative Neurovascular Status: Sensation Intact, Moves foot and ankle up & down, and 2+ dorsalis pedis Imaging: IMPRESSION: Negative left hip x-ray and AP view pelvis. Big Machine Consultant: ADILENE Transcribe Date/Time: Jan 26 2023 10:50A Dictated by : DEMETRICE SABA MD This examination was interpreted and the report reviewed and electronically signed by: DEMETRICE SABA MD on Jan 26 2023 10:54AM EST Results-Findings * * *Final Report* * * DATE OF EXAM: Jan 26 2023 10:27AM WOX [id number] - XR HIP 3V PELV+ AP/LAT LT / PROCEDURE REASON: Acute hip pain, left * * * * Physician Interpretation * * * * EXAM TITLE: XR HIP 3V PELV+ AP/LAT LT EXAM DATE/TIME: 01/26/2023 10:27 AM COMPARISON: None. CLINICAL INDICATION/HISTORY: Hip pain. TECHNIQUE: AP and frog lateral views of the left hip and AP view of the pelvis are presented. FINDINGS: No acute fractures or subluxations are noted in the left hip. The left hip joint space is maintained, without obvious osteophyte formation. The visualized pelvic bones are intact. There is no significant soft tissue swelling. IMPRESSION: Negative lumbar spine X-ray. Big Machine Consultant: [facility] Transcribe Date/Time: May 06 2024 10:50A Dictated by : DEMETRICE SABA MD This examination was interpreted and the report reviewed and electronically signed by: DEMETRICE SABA MD on May 06 2024 10:50AM EST Results-Findings * * *Final Report* * * DATE OF EXAM: May 02 2024 8:48AM WOX [id number] - XR LUMBAR 3V AP/LAT/L5-S1 / PROCEDURE REASON: Acute left-sided low back pain with left-sided sciatica * * * * Physician Interpretation * * * * EXAM TITLE: XR LUMBAR 3V AP/LAT/L5-S1 EXAM DATE/TIME: 05/02/2024 8:48 AM COMPARISON: None. CLINICAL INDICATION/HISTORY: Low back pain. TECHNIQUE: AP, lateral and cone down lateral views of the lumbar spine are presented. FINDINGS: There are five ort-raq-rbvytus lumbar vertebrae. No fracture or subluxations are noted. The disc spaces are well preserved. There is no significant osteophyte formation. Supporting Subjective Information Below: Past Surgical History: PAST SURGICAL HISTORY Procedure Laterality Date COLONOSCOPY SCREENING 02/08/2024 EGD W/O BRSH SPEC VARICIES INJ 02/08/2024 LAPS ABD PRTM&OMENTUM DX W/WO SPEC BR/WA SPX 2014 Laparoscopy - for r/o endometriosis, foung to have a cyst PT ED OBSTETRICS & GYNECOLOGY N/A 12/2019 laparoscopic hysterectomy - for endometriosis - Dr. Shelley REMOVAL OF OVARY(S) Right 10/24/2020 ovarian torsion REMOVAL OF OVARY(S) Left 12/2020 Dr Jo SALPINGECTOMY Right 12/27/2016 laparoscopic Right salpingectomy- ECTOPIC Medications: Current Outpatient Medications Medication Sig predniSONE (DELTASONE) 10 mg tablet 6 tabs po day 1 and 2, then 5 tabs day 3 and 4, 4 tabs day 5 and 6, 3 tabs day 7 and 8, 2 tabs day 9 and 10, 1 tab day 11 and 12. cyclobenzaprine (FLEXERIL) 10 mg tablet Take 1 tablet by mouth three times a day as needed for muscle spasm. omeprazole (PRILOSEC) 40 mg capsule Take 1 capsule by mouth once daily. rosuvastatin (CRESTOR) 5 mg tablet Take 2 tablets by mouth daily at bedtime. spironolactone (ALDACTONE) 50 mg tablet Take 1 tablet by mouth two times a day. amitriptyline (ELAVIL) 10 mg tablet Take 1 tablet by mouth daily at bedtime. metFORMIN ER (GLUCOPHAGE XR) 500 mg 24 hr tablet Take 1 tablet by mouth daily with breakfast. estradiol (ESTRACE) 1 mg tablet rizatriptan (MAXALT ARMORING MACHINE OPERATOR) 10 mg disintegrating tablet Take 1 tablet by mouth as needed. May repeat in 2 hours if needed No current facility-administered medications for this visit. Allergies: Cleocin [Clindamycin] and Sulfa (Sulfonamide Antibiotics) ROS: General (negative for fatigue, malaise, weight loss/gain) HEENT (negative for headache, earache, recent vision changes, sinus pain, sore throat) Respiratory (no recent shortness of breath, hemoptysis) CV (negative for chest tightness, palpitations) Musculoskeletal (see HPI) Psych (no depression, anxiety) This note was partially generated using [email or web address] voice recognition system, and there may be some incorrect words, spellings, and punctuation that were not noted in checking the note before saving. Maggy Hayes PA-C [facility] History of Present illness Narrative* Adelso Mccracken Tech - 09/08/2024 9:00 AM EST Radiology Service Progress Note PATIENT NAME: Macey Campbell DATE OF SERVICE: September 08, 2024 TIME: 8:58 AM PATIENT IDENTITY VERIFICATION COMPLETED USING TWO (2) IDENTIFIERS: Name and Date of confirmedby patient verbally. FALL SCREENING: Has the patient had 2 falls in the last year or 1 fall with injury or currently using an Ambulatory Assistive Device (Walker, Cane, Wheelchair, Crutches, etc.)? No PATIENT GENDER DATA: Female. status: : No status: NO. PATIENT RELEVANT IMPLANT DATA REVIEWED: Not Applicable PATIENT PRESENTS WITH AN IMPLANTABLE OR ATTACHED CLINICAL RESEARCH SPEC: No RADIOLOGY DEPARTMENT: General X-ray: Exam(s) Completed: Pelvis X-Ray: Pelvis with Hip Left and Wt. Bearing PERIPHERAL IV DATA: Not applicable SIGNED BY: Garry Jean-Baptiste September 08, 2024 8:58 AM documented in this encounterFlower Hospital11-07-2024 NoteHNO ID: [id number] Author: ADELSO MCCRACKEN Tech Service: ? Author Type: Manager Contracting Type: Progress Notes Filed: 09/08/2024 08:59 Note Text: Radiology Service Progress Note PATIENT NAME: Macey Campbell DATE OF SERVICE: September 08, 2024 TIME: 8:58 AM PATIENT IDENTITY VERIFICATION COMPLETED USING TWO (2) IDENTIFIERS: Name and Date of confirmed by patient verbally. FALL SCREENING: Has the patient had 2 falls in the last year or 1 fall with injury or currently using an Ambulatory Assistive Device (Walker, Cane, Wheelchair, Crutches, etc.)? No PATIENT GENDER DATA: Female. status: : No status: NO. PATIENT RELEVANT IMPLANT DATA REVIEWED: Not Applicable PATIENT PRESENTS WITH AN IMPLANTABLE OR ATTACHED CLINICAL RESEARCH SPEC: No RADIOLOGY DEPARTMENT: General X-ray: Exam(s) Completed: Pelvis X-Ray: Pelvis with Hip Left and Wt. Bearing PERIPHERAL IV DATA: Not applicable SIGNED BY: Garry Jean-Baptiste September 08, 2024 8:58 AMCherrington [id number] History of Present illness Narrative* Long Warren, PT - 08/19/2024 4:54 PM EDT Images from the original note were not included. Episode Visit Count: 10 Therapist That Will Accept/Oversee The Plan Of Care: Long Warren PT Start of Care Date: 06/28/24 Onset Date: 04/19/24 Patient Identified by Name and Date of : Yes REHABILITATION AND SPORTS THERAPY PHYSICAL THERAPY DISCONTINUANCE OF CARE PLAN OF CARE UPDATE: Assessment: Macey Campbell is discontinued from Physical Therapy services due to maximal benefit.and Patient/Clinician mutual decision to discontinue current plan of care.. Patient was seen for 10visits from Start of Care Date: 06/28/24 to 08/19/2024 and treatment included: Therapeutic exercise, Manual therapy, Self-mcfp management, Patient/Family/Caregiver Education, and Body mechanics training. Updated: 07/26/24 and 08/19/24 Goals for Episode of Care: established 06/28/24 Independent in home exercises. - MET Patient will decrease pain to 0/10 at rest and with functional activities to allow patient to improve ADL and work tolerance. - Not MET Restore pain-free lumbar ROM to WFL to allow for improved squatting and rising. - Partially MET Sleep through night without pain/symptoms. - Not MET Patient will be able to tolerate squatting, sleeping and stairs without increased symptoms. - Not MET Patient will increase strength of core/postural muscles to WFL to allow for return to prior functional level without limitation. - Not MET Patient Goals: eliminate pain - Not MET SUBJECTIVE: Pt reports that overall her symptoms are approximately the same. She feels that the traction has been a positive thing for her back that lasts for approximately 1 day. She denies any benefit to her L hip and groin from the traction. She reports compliance with HEP 2x day. She denies anyimprovements with squatting, sleeping, working or rising. Pain: Pain Pain Level: 7 Pain Location: Groin - Left, Buttocks - Left, Hip - Left Description: Aching, Sharp Frequency: Continuous Post Treatment Pain Post Treatment Pain Level: No Change PROMIS Scales 07/26/2024 06/28/2024 Higher is Better Phys Func - Score 38 (moderate dysfunction) 41 (mild dysfunction) Phys Func - Percentile 12 18 Self-Eff Symptom - Score 38 (Low) 39 (Low) Self-Eff Symptom - Percentile 12 14 T-scores: mean of general population = 50. 5 points is clinically meaningfully difference Percentiles provide an indication of how the patient's score ranks in relation to the general population. Higher percentile rankings indicate better function/quality of life. 50th percentile is the average of the general population and indicates half of respondents had a worse score. OBJECTIVE MEASURES WITH LEVEL OF FUNCTION: Lumbar Spine AROM Lumbar Flexion: Minimal limitation Lumbar Extension: Normal Lumbar R Side-Bend: Normal Lumbar L Side-Bend: Normal Lumbar R Rotation: Normal Lumbar L Rotation: Normal LE Flexibility R Piriformis Flexibility: 48 L Piriformis Flexibility: 25 Special Tests - Hip and Spine SLR Test: Right Negative, Left Negative TREATMENT: Therapeutic Exercise: 1: HEP was thoroughly reviewed and recommendations made for continuation. 2: Re-assessment results and future plan of care options were discussed in detail. Recommendations made regarding d/c from current plan of care. Skilled Intervention: Patient was educated in proper exercise technique and purpose for exercises. Skilled judgment was used in selection of appropriate interventions. Correct performance of therapeutic exercises was facilitated with verbal and visual cuing. Patient education as noted. Billing Therapeutic Exercise Treatment Minutes: 25 Skilled Treatment Time Minutes (timed and untimed codes): 25 Total Session Time (minutes): 25 Session Start Time : 1501 Session Stop Time : 1526 Long Warren PT documented in this encounterFlower Hospital10-09-2024 History of Present illness Narrative* Long Warren PT - 08/10/2024 3:31 PM EDT Episode Visit Count: 9 Therapist That Will Accept/Oversee The Plan Of Care: Long Warren PT Start of Care Date: 06/28/24 Onset Date: 04/19/24 Patient Identified by Name and Date of : Yes REHABILITATION AND SPORTS THERAPY PHYSICAL THERAPY TREATMENT NOTE ASSESSMENT: Macey Campbell tolerated the session with fatigue and expected muscle soreness. She demonstrated difficulty with maintaining TA activation while in quadruped with alt LE extensions. Thepatient will continue to benefit from ongoing skilled physical therapy to progress toward set goals. PLAN FOR NEXT VISIT: Continue with manual therapy and traction prn. Continue with Neutral spine strengthening. SUBJECTIVE: Pt reports that she is getting more sore today as the day goes on, usually happens mostdays. Pain: Pain Pain Level: 5 Pain Location: Groin - Left, Buttocks - Left, Hip - Left Post Treatment Pain Post Treatment Pain Level: Worse Post Treatment Pain Location: Buttocks - Left OBJECTIVE MEASURES WITH LEVEL OF FUNCTION: Soft tissue restriction at L piriformis. TREATMENT: Therapeutic Exercise: 1: modified kneeling planks 3x30 seconds 2: supine L piriformis stretch 3x30 seconds 3: Quadruped alt UE lifts 2x10 B 4: Quadruped alt LE extensions x 10 B (yard stick used across back for feedback) Skilled Intervention: Patient was educated in proper exercise technique and purpose for exercises. Skilled judgment was used in selection of appropriate interventions. Correct performance of therapeutic exercises was facilitated with verbal and visual cuing. Manual Therapy: 1: STM with foam roller with intermittent trigger point release to L piriformis x 10 minutes 2: supine manual lumbar belt traction x10 minutes with LEs on leg rest and force to pt tolerance. Skilled Intervention: Manual skills to improve joint mobility, ROM, and decrease pain. Utilized anatomy knowledge of the therapist, and assessment of patient's response to intervention. Billing Therapeutic Exercise Treatment Minutes: 25 Manual TherapyTreatment Minutes: 20 Skilled Treatment Time Minutes (timed and untimed codes): 45 Total Session Time (minutes): 45 Session Start Time : 1530 Session Stop Time : 1615 WEI Bush PT documented in this encounterFlower Hospital10-07-2024 History of Present illness Narrative* Long Warren PT - 08/08/2024 3:22 PM EDT Episode Visit Count: 8 Therapist That Will Accept/Oversee The Plan Of Care: Long Warren PT Start of Care Date: 06/28/24 Onset Date: 04/19/24 Patient Identified by Name and Date of : Yes REHABILITATION AND SPORTS THERAPY PHYSICAL THERAPY TREATMENT NOTE ASSESSMENT: Macey Campbell tolerated the session with fatigue and expected muscle soreness. She demonstrated improvements in ability to maintain core activation with modified kneeling plank and reduction in radicular symptoms with prone progression. The patient will continue to benefit from ongoing skilled physical therapy to progress toward set goals. PLAN FOR NEXT VISIT: Continue advancing core exercsies. Consider quadruped per pt's wrist. SUBJECTIVE: Pt reports that she was sore all weekend. Pt states that she took it easy yesterday andtoday. Pt reports that is achy today. Pain: Pain Pain Level: 4 Pain Location: Groin - Left, Buttocks - Left, Hip - Left Post Treatment Pain Post Treatment Pain Level: No Change OBJECTIVE MEASURES WITH LEVEL OF FUNCTION: TREATMENT: Therapeutic Exercise: 1: Retro TM 0.7mph x3.5 minutes, discontinued caused pain down LLE 2: Prone lying x 3 minutes 3: WAYNE x 3 minutes 4: Prone press ups 3x10 5: prone B alt hip ext SLR 2x10 each 6: modified kneeling planks 3x30 seconds 7: supine L piriformis stretch 3x30 seconds Skilled Intervention: Patient was educated in proper exercise technique and purpose for exercises. Skilled judgment was used in selection of appropriate interventions. Correct performance of therapeutic exercises was facilitated with verbal and visual cuing. Manual Therapy: 1: STM to L piriformis with pt in prone x10 minutes and pressure to patient tolerance. 2: supine manual lumbar belt traction x10 minutes with LEs on leg rest and force to pt tolerance. Skilled Intervention: Manual skills to improve joint mobility, ROM, and decrease pain. Utilized anatomy knowledge of the therapist, and assessment of patient's response to intervention. Billing Therapeutic Exercise Treatment Minutes: 33 Manual TherapyTreatment Minutes: 20 Skilled Treatment Time Minutes (timed and untimed codes): 53 Total Session Time (minutes): 53 Session Start Time : 1521 Session Stop Time : 1614 WEI Bush PT documented in this encounterFlower Hospital10-04-2024 History of Present illness Narrative* Long Warren PT - 08/05/2024 2:47 PM EDT Episode Visit Count: 7 Therapist That Will Accept/Oversee The Plan Of Care: Long Warren PT Start of Care Date: 06/28/24 Onset Date: 04/19/24 Patient Identified by Name and Date of : Yes REHABILITATION AND SPORTS THERAPY PHYSICAL THERAPY TREATMENT NOTE ASSESSMENT: Macey Campbell tolerated the session with fatigue and expected muscle soreness. She demonstrated difficulty with mobility throughout session due to stiffness due to working prior to physical therapy today. The patient will continue to benefit from ongoing skilled physical therapy to progress toward set goals. PLAN FOR NEXT VISIT: Continue manual therapy STM to L piriformis and also manual lumbar belt traction for lumbar radicular symptoms. Continue with postural stretching and strengthening with extension directional preference and/or neutral spine. SUBJECTIVE: Pt reports that she wokred earlier today and she is more painful. Antalgic gait with walking. Pain: Pain Pain Level: 7 Pain Location: Groin - Left, Buttocks - Left, Hip - Left Post Treatment Pain Post Treatment Pain Level: No Change OBJECTIVE MEASURES WITH LEVEL OF FUNCTION: Increased tightness of L piriformis. TREATMENT: Therapeutic Exercise: 1: Prone lying x 3 minutes 2: WAYNE x 3 minutes 3: Prone press ups 3x10 4: prone B alt hip ext SLR 2x10 each 5: supine L piriformis stretch 3x30 seconds Skilled Intervention: Patient was educated in proper exercise technique and purpose for exercises. Skilled judgment was used in selection of appropriate interventions. Correct performance of therapeutic exercises was facilitated with verbal and visual cuing. Manual Therapy: 1: STM with use of lacrosse ball to L piriformis with pt in prone x5 minutes and pressure to patient tolerance. 2: supine manual lumbar belt traction x10 minutes with LEs on leg rest and force to pt tolerance. Skilled Intervention: Manual skills to improve joint mobility, ROM, and decrease pain. Utilized anatomy knowledge of the therapist, and assessment of patient's response to intervention. Billing Therapeutic Exercise Treatment Minutes: 30 Manual TherapyTreatment Minutes: 15 Skilled Treatment Time Minutes (timed and untimed codes): 45 Total Session Time (minutes): 45 Session Start Time : 1445 Session Stop Time : 1530 WEI Bush PT [facility] History of Present illness Narrative* Long Warren PT - 08/02/2024 12:33 PM EDT Episode Visit Count: 6 Therapist That Will Accept/Oversee The Plan Of Care: Long Warren PT Start of Care Date: 06/28/24 Onset Date: 04/19/24 Patient Identified by Name and Date of : Yes REHABILITATION AND SPORTS THERAPY PHYSICAL THERAPY TREATMENT NOTE ASSESSMENT: Macey Campbell tolerated the session with no issues. She demonstrated difficulty withcontinued pain in L hip and groin. The patient will continue to benefit from ongoing skilled physical therapy to progress toward set goals. Classification Pain Mechanism Classification: Neuropathic Low Back Pain Classification: Symptom Modulation PLAN FOR NEXT VISIT: Continue manual therapy STM to L piriformis and also manual lumbar belt traction for lumbar radicular symptoms. Continue with postural stretching and strengthening with extension directional preference and/or neutral spine. SUBJECTIVE: Pt reports that overall she is feeling the same as last session. She reports that her Lhip symptoms are slightly worse today without explanation. Pain: Pain Pain Level: 6 Pain Location: Groin - Left, Buttocks - Left, Hip - Left Description: Aching, Sharp Frequency: Continuous Post Treatment Pain Post Treatment Pain Level: No Change Post Treatment Symptoms: Pt denied any increase in pain with therex or manual therapy. OBJECTIVE MEASURES WITH LEVEL OF FUNCTION: Gait Gait Observation: antalgic TREATMENT: Therapeutic Exercise: 1: Retro TM 0.7mph x6 minutes (Pt provided an update on her condition, plan of care reviewed as well as rationale for this exercise. 1:1 throughout) 2: standing lumbar extension 2x10 3: prone B alt hip ext SLR 2x10 each 4: modified kneeling planks 3x30 seconds 5: bridging 2x10 6: supine L piriformis stretch 3x30 seconds Skilled Intervention: Patient was educated in proper exercise technique and purpose for exercises. Skilled judgment was used in selection of appropriate interventions. Correct performance of therapeutic exercises was facilitated with verbal, visual, and tactile cuing. Patient education as noted. Pt was provided with phone number for Dr. Rm and Dr. Verma so that she could schedule a consultation for possible hip labral tear. Manual Therapy: 1: STM with use of lacrosse ball to L piriformis with pt in prone x5 minutes and pressure to patient tolerance. 2: supine manual lumbar belt traction x10 minutes with LEs on leg rest and force to pt tolerance. Skilled Intervention: Manual skills to improve joint mobility, ROM, and decrease pain. Utilized anatomy knowledge of the therapist, and assessment of patient's response to intervention. Billing Therapeutic Exercise Treatment Minutes: 35 Manual TherapyTreatment Minutes: 15 Skilled Treatment Time Minutes (timed and untimed codes): 50 Total Session Time (minutes): 50 Session Start Time : 1135 Session Stop Time : 1225 Long Warren PT [facility]09[facility] History of Present illness Narrative* Long Warren PT - 07/26/2024 3:40 PM EDT Images from the original note were not included. Episode Visit Count: 5 Therapist That Will Accept/Oversee The Plan Of Care: Long Warren PT Start of Care Date: 06/28/24 Onset Date: 04/19/24 Patient Identified by Name and Date of : Yes REHABILITATION AND SPORTS THERAPY PHYSICAL THERAPY PROGRESS REPORT PLAN OF CARE UPDATE: Assessment: Macey Campbell demonstrates minimal improvement in rising from a chair, stair negotiation, and squatting. She has made minimal progress in a minimal number of sessions. Will attempt to increase frequency to 2x week. Patient continues to present with impairments in ADL's, gait, independence in exercise, overall function, range of motion, strength, symptom management, and tissue tenderness that interfere with squatting, sleeping, stair negotiation (rising from squat) . Current prognosis is Gooddue to: current objective clinical presentation, good overall health status, acuteness of condition, good support system/ coping skills. She will benefit from continued skilled therapy services to meet the updated goals for this plan of care as noted below. Updated: 07/26/24 Goals for Episode of Care: established 06/28/24 Independent in home exercises. - MET, will continue and progress to pt tolerance Patient will decrease pain to 0/10 at rest and with functional activities to allow patient to improve ADL and work tolerance. - Not MET, will continue Restore pain-free lumbar ROM to WFL to allow for improved squatting and rising. - Partially MET, will continue Sleep through night without pain/symptoms. - Not assessed will continue Patient will be able to tolerate squatting, sleeping and stairs without increased symptoms. - Not MET, will continue Patient will increase strength of core/postural muscles to WFL to allow for return to prior functional level without limitation. - Not MET, will continue Patient Goals: eliminate pain - Not MET, will continue Time Frame for Goals and Treatment : 08/23/24 Patient Goals: eliminate pain Planned Interventions, Frequency, and Duration: 2x/week, 4 weeks Total Number of Visits Planned: 8 Patient to be seen for Therapeutic exercise (59945), Neuromuscular re-education (11577), Manual therapy (91570), Self-mcfp management (65813), Patient/Family/Caregiver Education, Body Mechanics Training PLAN FOR NEXT VISIT: Continue manual therapy STM to L piriformis and also manual lumbar belt traction for lumbar radicular symptoms. Continue with postural stretching and strengthening with extensiondirectional preference and/or neutral spine. Classification Pain Mechanism Classification: Neuropathic Low Back Pain Classification: Symptom Modulation SUBJECTIVE: Pt reports that overall her condition is the same as at evaluation 06/28/24. She reportsthat her symptoms are still aggravated by work and still located in L groin and hip region. She reports that her symptoms are mild today because of low activity level. She reports that traction and STM did not cause any aggravation and STM helped. She is unsure if traction helped because it was only completed once. She reports a willingness to be patient and work through the PT process. Patient Goals: eliminate pain Functional Limitations: squatting, sleeping, stair negotiation (rising from squat) Prior Level of Function: Independent without limitations Intake Information: Prescription present Previous Treatment: Steroids , NSAIDs , Muscle relaxer , Topicals, Massage Pain: Pain Pain Level: (5-6/10) Pain Location: Buttocks - Left, Hip - Left, Thigh - Left Description: Aching (sharp at times) Frequency: Continuous Post Treatment Pain Post Treatment Pain Level: No Change Post Treatment Symptoms: Pt reports minimal change with symptoms slightly less uncomfortable. PROMIS Scales 07/26/2024 06/28/2024 Higher is Better Phys Func - Score 38 (moderate dysfunction) 41 (mild dysfunction) Phys Func - Percentile 12 18 Self-Eff Symptom - Score 38 (Low) 39 (Low) Self-Eff Symptom - Percentile 12 14 T-scores: mean of general population = 50. 5 points is clinically meaningfully difference Percentiles provide an indication of how the patient's score ranks in relation to the general population. Higher percentile rankings indicate better function/quality of life. 50th percentile is the average of the general population and indicates half of respondents had a worse score. OBJECTIVE MEASURES WITH LEVEL OF FUNCTION: LE Flexibility Flexibility: Piriformis Flexibility R Piriformis Flexibility: 39 L Piriformis Flexibility: 22 (painfully limited) Special Tests - Hip and Spine Hip and Spine Special Tests: SLR Test SLR Test: Right Negative, Left Positive (L SLR caused an increase in symptoms similar to her familiar pain in L hip and thigh.) Gait Gait Observation: antalgic TREATMENT: Therapeutic Exercise: 1: prone lying reviewed and continuation encouraged 2: prone on elbows reviewed and continuation encouraged 3: prone press ups reviewed and continuation encouraged as long as UEs tolerate this 4: *standing lumbar extension 2x10 5: supine L piriformis stretch reviewed and completed 3x30 seconds. 6: supine L piriformis stretch with R LE flat on plinth removed from HEP secondary to pt report of pain with this. Skilled Intervention: Patient was educated in proper exercise technique and purpose for exercises. Reviewed and educated patient on additions/changes for home exercise program as above (*). Skilled judgment was used in selection of appropriate interventions. Provided written instruction for home exercise program to facilitate proper performance and compliance. Correct performance of therapeutic exercises was facilitated with verbal and visual cuing. Patient education as noted. Manual Therapy: 1: STM with use of lacrosse ball to L piriformis with pt in R sidelying x5 minutes and pressure to patient tolerance. 2: supine manual lumbar belt traction x10 minutes with LEs on leg rest and force to pt tolerance. Skilled Intervention: Manual skills to improve joint mobility, ROM, and decrease pain. Utilized anatomy knowledge of the therapist, and assessment of patient's response to intervention. Billing Therapeutic Exercise Treatment Minutes: 24 Manual TherapyTreatment Minutes: 15 Skilled Treatment Time Minutes (timed and untimed codes): 39 Total Session Time (minutes): 39 Session Start Time : 1406 Session Stop Time : 1445 Long Warren PT * Long Warren PT - 07/26/2024 2:26 PM EDT Program_ID:[id number] Access Code: [email or web address] URL: [email or web address] Date: 07-26-2024 Prepared By: Long Warren Program Notes Exercises - Lying Prone - 3 x daily - 5-7 x weekly - sets - reps - Static Prone on Elbows - 3 x daily - 5-7 x weekly - sets - reps - Prone Press Up - 3 x daily - 5-7 x weekly - 2 sets - 10 reps - Supine Piriformis Stretch with Foot on Ground - 3 x daily - 7 x weekly - sets - 3 reps - Standing Lumbar Extension - 3 x daily - 7 x weekly - 2 sets - 10 reps [facility] History of Present illness Narrative* Long Warren, PT - 07/18/2024 5:54 PM EDT Episode Visit Count: 4 Therapist That Will Accept/Oversee The Plan Of Care: Long Warren PT Start of Care Date: 06/28/24 Onset Date: 04/19/24 Patient Identified by Name and Date of : Yes REHABILITATION AND SPORTS THERAPY PHYSICAL THERAPY TREATMENT NOTE ASSESSMENT: Macey Campbell tolerated the session with fatigue, increased symptoms, and expected muscle soreness. She demonstrated difficulty with L hip soreness with core strengthening exercises. The patient will continue to benefit from ongoing skilled physical therapy to progress toward set goals. PLAN FOR NEXT VISIT: Asses reponse to core strengthening. SUBJECTIVE: Pt reports that her back is feeling better today because she hasn't had to work today. Pt reports that Thursday was rough day, couldn't even get into her positions to complete exercsies ,her had to help her. Pt states that she was sitting and trialed a glute set and that it caused soreness in her L buttock. Pt states that she felt no difference with traction. Pain: Pain Pain Level: 3 Pain Location: Buttocks - Left, Hip - Left, Thigh - Left Post Treatment Pain Post Treatment Symptoms: Increased soreness in L hip OBJECTIVE MEASURES WITH LEVEL OF FUNCTION: TTP L glute med and max TREATMENT: Therapeutic Exercise: 1: PPT 2x10 2: PPT with BKFO 1x10 B (soreness in L hip) 3: PPt with alt LE marching x10 B (soreness in L hip) 4: Bridges 2x10 5: PPT with alt toe taps x 10 B 6: Gluteal stretch 2x30 seconds LLE Skilled Intervention: Patient was educated in proper exercise technique and purpose for exercises. Skilled judgment was used in selection of appropriate interventions. Correct performance of therapeutic exercises was facilitated with verbal and visual cuing. Manual Therapy: 1: Trialed manual hip distraction 2x30 seconds 2: STM over L glute with pt in prone with intermittent trigger point relase x 5 minutes Skilled Intervention: Manual skills to improve joint mobility, ROM, and decrease pain. Utilized anatomy knowledge of the therapist, and assessment of patient's response to intervention. Billing Therapeutic Exercise Treatment Minutes: 45 Manual TherapyTreatment Minutes: 7 Total Session Time (minutes): 52 Session Start Time : 1751 Session Stop Time : 1843 WEI Bush PT [facility]09-10-[facility] History of Present illness Narrative* Long Warren PT - 07/12/2024 1:58 PM EDT Episode Visit Count: 3 Therapist That Will Accept/Oversee The Plan Of Care: Long Warren PT Start of Care Date: 06/28/24 Onset Date: 04/19/24 Patient Identified by Name and Date of : Yes REHABILITATION AND SPORTS THERAPY PHYSICAL THERAPY TREATMENT NOTE ASSESSMENT: Macey Campbell tolerated the session with fatigue and expected muscle soreness. She demonstrated difficulty with gluteal stretching due to tightness. The patient will continue to benefit from ongoing skilled physical therapy to progress toward set goals. PLAN FOR NEXT VISIT: Asses prolonged response to gluteal stretching. Continue with extension prefrence. Trial core stability exercsies SUBJECTIVE: Pt reports that her back is still feeling about the same, not as bad as last week. Pt states that the exercsies are going okay. States that when doing the piriformis stretch and returningher L leg to resting position there was a big pop in her hip, not painful. Pain: Pain Pain Level: 5 Pain Location: Buttocks - Left, Hip - Left, Thigh - Left Description: Aching, Sharp Frequency: Continuous Post Treatment Pain Post Treatment Pain Level: No Change Post Treatment Symptoms: [place] a little stretched out in gluteal region OBJECTIVE MEASURES WITH LEVEL OF FUNCTION: TREATMENT: Therapeutic Exercise: 1: Prone lying x 3 minutes 2: Prone prop x 3 minutes 3: Prone press ups 2x10 4: Trial hip flexor stretch, pain and pulling in low back on L side, no stretch felt in anterior thigh Skilled Intervention: Patient was educated in proper exercise technique and purpose for exercises. Skilled judgment was used in selection of appropriate interventions. Correct performance of therapeutic exercises was facilitated with verbal and visual cuing. Manual Therapy: 1: Manual lumbar traction x 10 minutes 2: Manual gluteal stertching 5x 30 seconds Skilled Intervention: Manual skills to improve joint mobility, ROM, and decrease pain. Utilized anatomy knowledge of the therapist, and assessment of patient's response to intervention. Billing Therapeutic Exercise Treatment Minutes: 27 Manual TherapyTreatment Minutes: 15 Skilled Treatment Time Minutes (timed and untimed codes): 42 Total Session Time (minutes): 42 Session Start Time : 1357 Session Stop Time : 1439 WEI Bush PT [facility]09-04-[facility] History of Present illness Narrative* Long Warren PT - 07/06/2024 5:45 PM EDT Episode Visit Count: 2 Therapist That Will Accept/Oversee The Plan Of Care: Long Warren PT Start of Care Date: 06/28/24 Onset Date: 04/19/24 Patient Identified by Name and Date of : Yes REHABILITATION AND SPORTS THERAPY PHYSICAL THERAPY TREATMENT NOTE ASSESSMENT: Macey Campbell tolerated the session with expected muscle soreness. She demonstrated difficulty with increased pain the past two days with no explanation for yesterday. She attributes today's pain to work demands. No change reported after today's session. The patient will continue to benefit from ongoing skilled physical therapy to progress toward set goals. Classification Pain Mechanism Classification: Neuropathic Low Back Pain Classification: Symptom Modulation PLAN FOR NEXT VISIT: Continue with entire HEP but focus more on lumbar spine and extension directional preference instead of piriformis based on results of slump test. Consider manual lumbar belt traction prn. Assess pt fpc response to today's session. SUBJECTIVE: Pt reports that overall she is approximately the same. She does report that she has hadincreased pain the past two days without explanation. She attributes the increased pain today to increased bending, lifting and squatting activity at work. She reports compliance with HEP 2x day. Shereports doing a lot of cleaning at work and squatting. Pain: Pain Pain Level: 7 Pain Location: Buttocks - Left, Hip - Left, Thigh - Left Description: Aching, Sharp Frequency: Continuous Post Treatment Pain Post Treatment Pain Level: No Change OBJECTIVE MEASURES WITH LEVEL OF FUNCTION: Posture / Alignment Lumbo - Pelvic Alignment: In standing: ASIS and PSIS are level with only minimal tenderness to palpation at L SI joint. Spine Observations R Lumbar Spine Palpation Tenderness: No tenderness noted L Lumbar Spine Palpation Tenderness: Piriformis LE Flexibility L Piriformis Flexibility: 28 (18 degrees after stretching and STM and trigger point release) Special Tests - Hip and Spine Hip and Spine Special Tests: Slump Test Slump Test: Left Positive (this reproduced her chief complaint immediately.) Gait Gait Observation: antalgic before, during and after session. TREATMENT: Therapeutic Exercise: 1: *seated version of L piriformis stretch added to HEP and completed here 3x30 seconds 2: supine L piriformis stretch 3x30 seconds 3: prone lying x3 minutes 4: prone on elbows x3 minutes 5: prone press ups 2x10 before manual therapy and 2x10 after manual therapy 6: Liquid ScenariosFti StepOne seat #12 x3 minutes with no resistance. 7: Proper intensity with all therex explained and emphasized. Pt was advised that when she has increased pain, this is when she needs to do the HEP the most. She was reminded to stop any exercise that causes increased pain. 8: therapist completed L piriformis stretch with pt supine 3x30 seconds after manual therapy Skilled Intervention: Patient was educated in proper exercise technique and purpose for exercises. Reviewed and educated patient on additions/changes for home exercise program as above (*). Skilled judgment was used in selection of appropriate interventions. Correct performance of therapeutic exercises was facilitated with verbal, visual, and tactile cuing. Patient education as noted. Manual Therapy: 1: Manual therapy to L piriformis with pt in R sidelying x10 minutes: lacrosse ball trigger point release and soft tissue mobilization, foam roll in both directions and therapist did manual trigger point release and strumming as well. All manual techniques done to pt tolerance and feedback sought throughout. Skilled Intervention: Manual skills to improve joint mobility, ROM, and decrease pain. Utilized anatomy knowledge of the therapist, and assessment of patient's response to intervention. Billing Therapeutic Exercise Treatment Minutes: 34 Manual TherapyTreatment Minutes: 10 Skilled Treatment Time Minutes (timed and untimed codes): 44 Total Session Time (minutes): 44 Session Start Time : 1515 Session Stop Time : 1559 Long Warren PT documented in this [facility]08-27-[facility] History of Present illness Narrative* Long Warren PT - 06/28/2024 5:01 PM EDT Images from the original note were not included. Episode Visit Count: 1 Therapist That Will Accept/Oversee The Plan Of Care: Long Warren PT Start of Care Date: 06/28/24 Onset Date: 04/19/24 Patient Identified by Name and Date of : Yes REHABILITATION AND SPORTS THERAPY PHYSICAL THERAPY EVALUATION PLAN OF CARE: Assessment: Macey Campbell presents with chief complaint of L hip/buttock pain that radiates to anterior L thigh that interferes with squatting, sleeping, stair negotiation (rising from squat) . She presents with impairments in ADL's, independence in exercise, overall function, posture, range of motion, strength, and symptom management. PROMIS (Patient-Reported Outcomes Measurement Information System) scores were reviewed and identified as a rehabilitation concern. Prognosis for therapy is Excellent due to: current objective clinical presentation, good overall health status, good support system/ coping skills. She will benefit from skilled therapy services to meet the goals established for this plan of care as noted below. Classification Pain Mechanism Classification: Neuropathic Low Back Pain Classification: Symptom Modulation Goals for Episode of Care: established 06/28/24 Independent in home exercises. Patient will decrease pain to 0/10 at rest and with functional activities to allow patient to improve ADL and work tolerance. Restore pain-free lumbar ROM to WFL to allow for improved squatting and rising. Sleep through night without pain/symptoms. Patient will be able to tolerate squatting, sleeping and stairs without increased symptoms. Patient will increase strength of core/postural muscles to WFL to allow for return to prior functional level without limitation. Patient Goals: eliminate pain Time Frame for Goals and Treatment : 08/09/24 Planned Interventions, Frequency, and Duration: Current Frequency: 1x/week Duration: 6 weeks Total Number of Visits Planned: 6 Planned Treatment Interventions: Therapeutic exercise (10500), Neuromuscular re- education (11510), Manual therapy (21475), Self-mcfp management (69807), Patient/Family/Caregiver Education, Body Mechanics Training PLAN FOR NEXT VISIT: Review, correct and progress HEP to tolerance. Continue with postural correction and body mechanics instruction. Consider use of manual belt traction prn. Continue with postural stretching and strengthening while considering an extension directional preference. Patient demonstrates good understanding of plan of care and treatment. The above goals and plan of care were discussed and agreed upon by patient/family. SUBJECTIVE: Pt reports constant pain in L hip/buttock that wraps around to front of L anteiror thigh. Pain is constant but varies in intensity. She reports that this is not her first episode. She reports that previous episodes fully resolved with steroid packs but this episode is not responding the way previous episodes did. 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 Cancer Clinical Reasoning: No identified risk factors. Infection Clinical Reasoning: No identified risk factors. Cauda Equina Syndrome Clinical Reasoning: No identified risk factors. Red Flags - Cervical Cancer Clinical Reasoning: No identified risk factors. Infection Clinical Reasoning: No identified risk factors. Spine History Symptoms Location at Onset: Buttock, Thigh Symptoms Since Onset: Unchanging Pain is Worse Always: Bending (squatting, lifting and stairs) Pain is Better Sometimes: No position, Rest Previous Episodes: Yes Previous Spine Episodes: previous episodes were not as severe and resolved quicker Sleeping Position: Side lying right Sleep Affected by Pain: Pain awakens Pain: Pain Pain Level: 5 (5/10 currently, 7/10 at worst) Pain Location: Buttocks - Left, Hip - Left, Thigh - Left Description: Aching, Sharp (more aching than sharp) Frequency: Continuous (constant but varies in intensity) Post Treatment Pain Post Treatment Pain Level: Worse Post Treatment Symptoms: After session, pt reported that she had slight increase in muscle sorenessbut she denied any significant changes. PROMIS Scales 06/28/2024 Higher is Better Phys Func - Score 41 (mild dysfunction) Phys Func - Percentile 18 Self-Eff Symptom - Score 39 (Low) Self-Eff Symptom - Percentile 14 T-scores: mean of general population = 50. 5 points is clinically meaningfully difference Percentiles provide an indication of how the patient's score ranks in relation to the general population. Higher percentile rankings indicate better function/quality of life. 50th percentile is the average of the general population and indicates half of respondents had a worse score. OBJECTIVE MEASURES WITH LEVEL OF FUNCTION: Spine Observations R Lumbar Spine Palpation Tenderness: No tenderness noted L Lumbar Spine Palpation Tenderness: Piriformis Sensation - Lumbar Sensation: Grossly Intact Lumbar Spine AROM Lumbar Flexion: Moderate limitation Lumbar Extension: Normal Lumbar R Side-Bend: Normal Lumbar L Side-Bend: Normal Lumbar R Rotation: Minimal limitation Lumbar L Rotation: Minimal limitation, Increased pain LE Flexibility Flexibility: Piriformis Flexibility R Piriformis Flexibility: 38 L Piriformis Flexibility: 42 LE Strength Trunk Strength: Pt's reported chronicity of symptoms, reported functional difficulties, job demandsand postural deficits indicate the need for increased postural strength. R LE Strength: no asymmetrical myotomal weakness detected in B LEs L LE Strength: no asymmetrical myotomal weakness detected in B LEs Special Tests - Hip and Spine Hip and Spine Special Tests: SLR Test SLR Test: Right Negative, Left Positive Gait Gait Observation: Normal Vitals BP: 127/86 Pulse: 92 Education: Education Learning Preferences: Demonstration, Explanation, Performance, Printed Materials Barriers: None Learning/educational needs: Plan of Care, Home exercise program, Posture, Body Mechanics, Lifestylechanges Education Provided: Yes, see treatment interventions for education provided Education Provided To: Patient Education Mode/Type: Demonstration, Explanation/Discussion, Literature/Printed Materials, Performance Response to Education/Teach Back: States/Identifies, Return Demonstration, Requires Review/Additional Education TREATMENT: PT Treatment Interventions: Self-Skilled Nursing Management, Therapeutic Exercise Evaluation Therapeutic Exercise: 1: Pt was educated on the proper intensity with therex and the importance of stopping if pain increases, especially peripheral symptoms. 2: *supine L piriformis stretch 3x30 seconds 3: *prone lying x3 minutes 4: *prone on elbows x3 minutes 5: *prone press ups 2x10 Skilled Intervention: Patient was educated in proper exercise technique and purpose for exercises. Reviewed and educated patient on additions/changes for home exercise program as above (*). Skilled judgment was used in selection of appropriate interventions. Provided written instruction for home exercise program to facilitate proper performance and compliance. Correct performance of therapeutic exercises was facilitated with verbal, visual, and tactile cuing. Patient education as noted. Self-Skilled Nursing Management: 1: Pt was educated extensively on anatomy of lumbar spine, disc mechanicss, likely etiology of symptoms and rationale for plan of care. She was educated on her extension directional preference and pictures were used to clarify all education. She was advised on how to improve her posture and body mechanics at work to decrease symptom aggravation. Skilled Intervention: Skilled judgment in the selection of proper modification for activity of daily living/home management based on clinical presentation, deficits, and needs. Reviewed patient specific diagnosis in relation to activities of daily living/home management. Billing * Evaluation Low Complexity: 1 Unit Therapeutic Exercise Treatment Minutes: 20 Self-Care/Home Management Treatment Minutes: 10 Skilled Treatment Time Minutes (timed and untimed codes): 50 Total Session Time (minutes): 50 Session Start Time : 1000 Session Stop Time : 1050 Long [place] PT * Long Warren PT - 06/28/2024 4:55 PM EDT Program_ID:[id number] Access Code: [email or web address] URL: [email or web address] Date: 06-28-2024 Prepared By: Long Warren Program Notes Exercises - Lying Prone - 3 x daily - 5-7 x weekly - sets - reps - Static Prone on Elbows - 3 x daily - 5-7 x weekly - sets - reps - Prone Press Up - 3 x daily - 5-7 x weekly - 2 sets - 10 reps - Supine Piriformis Stretch with Foot on Ground - 3 x daily - 7 x weekly - sets - 3 reps [facility] Instructions* Patient Instructions* Radha Garduno APRN.CNP - 06/07/2024 9:11 AM EDT Start the meloxicam. Schedule physical therapy. Continue the ice and topicals. Let me know if no better/worsening. documented [facility] this [facility]08-[facility] History of Present illness Narrative* Radha Garduno APRN.CNP - 06/07/2024 8:48 AM EDT This is a 34 year old female who presents today with: Patient presents with: Recheck: Follow up- L leg/hip pain; not getting any better HISTORY OF PRESENT ILLNESS: Macey Campbell is a 34 year old female. Patient presents with: Recheck: Follow up- L leg/hip pain; not getting any better Pt presents today with complaint of left leg/hip pain. Continues with hip and leg pain. Refers no improving. She was in on 05/02. Xray lower back negative. Tried flexeril -- but jut makes her tired. Took the prednisone. Refers really not helpful. Still using topicals. Ice helps. Cold water of the pool is helpful. A lot of pain to stand after sitting. Trying to find positions to sleep is uncomfortable. Currently taking ibuprofen (800 mg three times daily) and using tiger balm. Feels pain the most radiating around the left buttock. Radiates down the thigh. Gets popping in the lower back -- random times. Can just feel it. PAST MEDICAL HISTORY: PAST MEDICAL HISTORY 12/31/2021: GERD without esophagitis 12/31/2021: Obesity, Class I, BMI 30-34.9 No date: PCOS (polycystic ovarian syndrome) 12/31/2021: Tobacco use disorder PAST SURGICAL HISTORY 02/08/2024: COLONOSCOPY SCREENING 02/08/2024: EGD W/O [facility] SPEC VARICIES INJ 2015: LAPS ABD PRTM&OMENTUM DX W/WO SPEC BR/WA SPX Comment: Laparoscopy - for r/o endometriosis, foung to have a cyst 12/2019: PT ED OBSTETRICS & GYNECOLOGY; N/A Comment: laparoscopic hysterectomy - for endometriosis - Dr. Shelley 10/24/2020: REMOVAL OF OVARY(S); Right Comment: ovarian torsion 12/2020: REMOVAL OF OVARY(S); Left Comment: Dr Jo 12/27/2016: SALPINGECTOMY; Right Comment: laparoscopic Right salpingectomy- ECTOPIC ALLERGIES Cleocin [Clindamycin] and Sulfa (Sulfonamide Antibiotics) MEDICATIONS Current Outpatient Medications Medication Sig cyclobenzaprine (FLEXERIL) 10 mg tablet Take 1 tablet by mouth three times a day as needed for muscle spasm. omeprazole (PRILOSEC) 40 mg capsule Take 1 capsule by mouth once daily. rosuvastatin (CRESTOR) 5 mg tablet Take 2 tablets by mouth daily at bedtime. spironolactone (ALDACTONE) 50 mg tablet Take 1 tablet by mouth two times a day. amitriptyline (ELAVIL) 10 mg tablet Take 1 tablet by mouth daily at bedtime. metFORMIN ER (GLUCOPHAGE XR) 500 mg 24 hr tablet Take 1 tablet by mouth daily with breakfast. estradiol (ESTRACE) 1 mg tablet rizatriptan (MAXALT ARMORING MACHINE OPERATOR) 10 mg disintegrating tablet Take 1 tablet by mouth as needed. May repeat in 2 hours if needed No current facility-administered medications for this visit. FAMILY HISTORY Problem Relation Age of Onset Cervical Cancer Mother other (breast cyst [Other]) Mother Hyperlipidemia Father Hypertension Father No Known Problems Brother ADD/ADHD Brother Stroke Maternal Grandmother No Known Problems Maternal Grandfather Hypertension Paternal Grandmother Hyperlipidemia Paternal Grandmother Skin Cancer Paternal Grandmother Hypertension Paternal Grandfather Heart Attack Paternal Grandfather Diabetes Paternal Grandfather Hyperlipidemia Paternal Grandfather COPD Paternal Grandfather ADD/ADHD Son No Known Problems Half-sister No Known Problems Half-sister Social History Tobacco Use Smoking status: Every Day Packs/day: 0.50 Years: 15.00 Additional pack years: 0.00 Total pack years: 7.50 Types: Cigarettes Smokeless tobacco: Never Vaping Use Vaping Use: Never used Substance Use Topics Alcohol use: Yes Alcohol/week: 1.0 standard drink of alcohol Types: 1 Glasses of Wine (5oz) per week Comment: Social Drug use: No EXAM: BP 112/84 Pulse 77 Resp 16 LMP 08/04/2016 SpO2 97% PHYSICAL EXAM: General Appearance: Well appearing, alert, in no acute distress, well-hydrated, well nourished.. Skin: Skin color, texture, turgor normal, no suspicious rashes or lesions. Head: Normocephalic, no masses, lesions, tenderness or abnormalities. Back:no pain to palpation of vertebrae, good flexion and extension, good range of motion, reflexes are 2+ and symmetric, motor and sensory appear to be normal, no evidence of scoliosis, + tenderness over the left paralumbar area. Pain in the left lower back, hip, and hip flexor with range of motionof hip. = strength of LE. Lungs: Lungs clear to auscultation. No wheezing, rhonchi, rales.. Heart: RRR without murmur, gallop, or rubs. No ectopy. Extremities: No deformities, edema, skin discoloration, clubbing or cyanosis. Good capillary refill. . Neurologic: Gait normal. ASSESSMENT/PLAN: 1. Acute left-sided low back pain with left-sided sciatica - ICD9: 724.2, 724.3, ICD10: M54.42 (primary diagnosis) - CONSULT TO PHYSICAL THERAPY 2. Left hip pain - ICD9: 719.45, ICD10: M25.552 - CONSULT TO PHYSICAL THERAPY Will start meloxicam daily. Continue ice. Continue topicals. Schedule w/ physical therapy. Follow-up if symptoms persist/worsen. May need to consider additional imaging. Radha Garduno APRN.ESSIE The patient indicates understanding of these issues and agrees with the plan. documented [facility]07-[facility] History of Present illness Narrative* Altagracia Faith, RT(R) - 05/02/2024 8:30 AM EDT Radiology Service Progress Note PATIENT NAME: Macey Campbell DATE OF SERVICE: May 02, 2024 TIME: 8:41 AM PATIENT IDENTITY VERIFICATION COMPLETED USING TWO (2) IDENTIFIERS: Name and Date of confirmedby patient verbally. FALL SCREENING: Has the patient had 2 falls in the last year or 1 fall with injury or currently using an Ambulatory Assistive Device (Walker, Cane, Wheelchair, Crutches, etc.)? No PATIENT GENDER DATA: Female. status: : No status: NO. PATIENT RELEVANT IMPLANT DATA REVIEWED: Yes PATIENT PRESENTS WITH AN IMPLANTABLE OR ATTACHED CLINICAL RESEARCH SPEC: No RADIOLOGY DEPARTMENT: General X-ray: Exam(s) Completed: Spine X-Ray(s): Lumbar AP / LAT / L5-S1 PERIPHERAL IV DATA: Not applicable SIGNED BY: RT Arturo(R) May 02, 2024 8:41 AM documented in this encounterF[facility]07-01-2024 Instructions* Patient Instructions* Radha Garduno APRN.CNP - 05/02/2024 8:12 AM EDT Get the xray. Start the prednisone. You can use the cyclobenzaprine (flexeril), but this can make you drowsy. Massage Gentle stretching. Ice/moist heat. Let us know if no better/worsening. documented [facility]07-[facility] History of Present illness Narrative* Radha Garduno APRN.CNP - 05/02/2024 7:48 AM EDT This is a 33 year old female who presents today with: No chief complaint on file. HISTORY OF PRESENT ILLNESS: Macey Campbell is a 33 year old female. No chief complaint on file. Pt presents today with complaint of pain. Refers int he lower back/buttock and radiates to the left hip. Has happened in the past and had OM which helped. This time, it started again this morning. Denies any injuries. Mostly achy and sometimes very sharp. Refers that she has trouble getting up and down. Difficulty walking up steps. Radiates down the lateral leg a little bit. Ibuprofen, pool, topicals. tried to massage, but too painful. No n/t. No loss of bowel/bladder. PAST MEDICAL HISTORY: PAST MEDICAL HISTORY Diagnosis Date GERD without esophagitis 12/31/2021 Obesity, Class I, BMI 30-34.9 12/31/2021 PCOS (polycystic ovarian syndrome) Tobacco use disorder 12/31/2021 PAST SURGICAL HISTORY Procedure Laterality Date COLONOSCOPY SCREENING 02/08/2024 EGD W/O [facility] SPEC VARICIES INJ 02/08/2024 LAPS ABD PRTM&OMENTUM DX W/WO SPEC BR/WA SPX 2014 Laparoscopy - for r/o endometriosis, foung to have a cyst PT ED OBSTETRICS & GYNECOLOGY N/A 12/2019 laparoscopic hysterectomy - for endometriosis - Dr. Shelley REMOVAL OF OVARY(S) Right 10/24/2020 ovarian torsion REMOVAL OF OVARY(S) Left 12/2020 Dr Jo SALPINGECTOMY Right 12/27/2016 laparoscopic Right salpingectomy- ECTOPIC ALLERGIES Cleocin [Clindamycin] and Sulfa (Sulfonamide Antibiotics) MEDICATIONS Current Outpatient Medications Medication Sig omeprazole (PRILOSEC) 40 mg capsule Take 1 capsule by mouth once daily. rosuvastatin (CRESTOR) 5 mg tablet Take 2 tablets by mouth daily at bedtime. spironolactone (ALDACTONE) 50 mg tablet Take 1 tablet by mouth two times a day. amitriptyline (ELAVIL) 10 mg tablet Take 1 tablet by mouth daily at bedtime. metFORMIN ER (GLUCOPHAGE XR) 500 mg 24 hr tablet Take 1 tablet by mouth daily with breakfast. estradiol (ESTRACE) 1 mg tablet rizatriptan (MAXALT ARMORING MACHINE OPERATOR) 10 mg disintegrating tablet Take 1 tablet by mouth as needed. May repeat in 2 hours if needed No current facility-administered medications for this visit. FAMILY HISTORY Problem Relation Age of Onset Cervical Cancer Mother other (breast cyst [Other]) Mother Hyperlipidemia Father Hypertension Father No Known Problems Brother ADD/ADHD Brother Stroke Maternal Grandmother No Known Problems Maternal Grandfather Hypertension Paternal Grandmother Hyperlipidemia Paternal Grandmother Skin Cancer Paternal Grandmother Hypertension Paternal Grandfather Heart Attack Paternal Grandfather Diabetes Paternal Grandfather Hyperlipidemia Paternal Grandfather COPD Paternal Grandfather ADD/ADHD Son No Known Problems Half-sister No Known Problems Half-sister Social History Tobacco Use Smoking status: Every Day Packs/day: 0.50 Years: 15.00 Additional pack years: 0.00 Total pack years: 7.50 Types: Cigarettes Smokeless tobacco: Never Vaping Use Vaping Use: Never used Substance Use Topics Alcohol use: Yes Alcohol/week: 1.0 standard drink of alcohol Types: 1 Glasses of Wine (5oz) per week Comment: Social Drug use: No EXAM: BP 122/88 Pulse 81 Resp 16 LMP 08/04/2016 SpO2 96% PHYSICAL EXAM: General Appearance: Well appearing, alert, in no acute distress, well-hydrated, well nourished.. Skin: Skin color, texture, turgor normal, no suspicious rashes or lesions. Head: Normocephalic, no masses, lesions, tenderness or abnormalities. Eyes: Anicteric sclera. Pupils are equally round and reactive to light. Extraocular movements are intact. . Back:no pain to palpation of vertebrae, motor and sensory appear to be normal, no evidence of scoliosis, + tenderness over the left lower back/SI area. + tenderness over piriformis. = strength of LE.No foot drop. Lungs: Lungs clear to auscultation. No wheezing, rhonchi, rales.. Heart: RRR without murmur, gallop, or rubs. No ectopy. Extremities: No deformities, edema, skin discoloration, clubbing or cyanosis. Good capillary refill. . Neurologic: Gait normal. Unable to elicit reflexes bilaterally. ASSESSMENT/PLAN: 1. Acute left-sided low back pain with left-sided sciatica - ICD9: 724.2, 724.3, ICD10: M54.42 Low back pain. Question sacroiliitis. Get xray. Start prednisone taper. Flexeril prn. Topicals. Massage. Moist heat/ice. Gentle stretching. - XR LUMBAR GENERAL 3V AP/LAT/L5-S1 Discussed treatment plan and patient voices understanding. Patient's questions answered appropriately. Medications and potential side effects were discussed and patient voices understanding. Return to the office as scheduled or as needed for worsening/no improvement. Radha Garduno APRN.FRANCHISE DEVELOPMENT MANAGER documented in this encounterF[facility]05-17-[facility]24 History of Present illness Narrative* Elis Garsia, BIBI.FRANCHISE DEVELOPMENT MANAGER - 03/18/2024 10:04 AM EDT FOLLOW UP VISIT - ENDOSCOPY NAME: Macey Campbell [facility] NO.: [id number] DATE OF SERVICE: 03/18/2024 : 1990 REFERRING PHYSICIAN: Hollie Ballard MD Macey is a patient I am following for endoscopy. Dr. oMlina performed upper and lower endoscopy on 02/08/2024. The patient was found to have Wang's esophagus and small sized hiatal hernia. Colonoscopy had no abnormal findings. Pathology demonstrated: A. Stomach, antrum, biopsy: - Gastric antral type mucosa with no pathologic diagnostic abnormality; see comment. B. Esophagus, lower, biopsy: - Squamous mucosa and gastric mucosa with intestinal metaplasia compatible with Wang's esophagus; negative for dysplasia. C. Esophagus, mid, biopsy: - Squamous mucosa with no pathologic diagnostic abnormality. The patient notes feeling like something is still in her throat. since the procedure. She states occasionally when eating she will feel like food get stuck on top of this area and then she will vomit. This is happening multiple times a week. Denies bloody emesis. VITALS: Last menstrual period 08/04/2016. General: patient is alert, cooperative, pleasant and in no acute distress On examination, the abdomen is soft, non tender, active bowel sounds in all quadrants. No hepatosplenomegaly. Assessment IMPRESSION: dysphagia PLAN: The operative findings and pathology report were reviewed with the patient, and the patient has hadthe opportunity to ask questions and have questions answered. If the patient notes any problems or changes in bowel function, the patient should contact me immediately. Otherwise I recommend follow up endoscopy EGD in 3 years, colonoscopy in 10 years. HM updated and recall letter generated. ASSESSMENT/PLAN: 1. Other dysphagia - ICD9: 787.29, ICD10: R13.19 (primary diagnosis) - CONSULT TO ENT 2. Wang's esophagus without dysplasia - ICD9: 530.85, ICD10: K22.70 - Continue on Prilosec - Upper EGD due in 3 years or sooner as needed Patient verbalized understanding of all above and agreed with the plan Diagnoses: (R13.19) Other dysphagia (primary encounter diagnosis) (K22.70) Wang's esophagus without dysplasia I spent 20 minutes in the visit, with more than 50% of the total gndr-ra-owrh time of the visit in counseling / coordination of care. Elis Garsia APRN.FRANCHISE DEVELOPMENT MANAGER documented in this encounterF[facility] Hospital04-10-2024 Miscellaneous Notes* Telephone Encounter - Vishnu Molina MD - 02/10/2024 8:43 AM EDT FOLLOW UP ENDOSCOPY - RESULTS AND RECOMMENDATIONS NAME: Macey Campbell CLINIC NO.: [id number] : 1990 DATE: February 10, 2024 PRIMARY CARE PROVIDER: Hollie Ballard MD Macey Campbell is a patient referred for endoscopy for left sided abdominal complaints and reflux. She was seen in my office last April. I noted: Macey is a patient I am following for, multiple abdominal complaints. The patient was initially referred to me in October 2022 for what I felt was more somatic abdominal pain for question of diagnostic laparoscopy. At that time my office note included: Patient has a complex history of multiple gynecologic procedures. She had a diagnostic laparoscopy in 2014 for rule out endometriosis which at the time was felt to be negative but later she had a laparoscopic hysterectomy for what turned out to be endometriosis. She had had an ectopic tubal resulting in excision of her right tube prior to that and has had 2 laparoscopic oophorectomies. The patient notes left lower quadrant pain. Is been present approximately the past 6 months. He denies pain after eating. She notes no obstructive type symptoms. She notes pain after motion or movement more in this left lower quadrant. The pain is relatively localized. She had been referred to both gynecology and seen general surgeon at [facility]-Dr. Andre Krishnamurthy who did not feel her pain was due to adhesions do not recommend laparoscopic exploration. She had been seen at both [place] and [facility]. Abdominal exam: Soft, actively localized tenderness in the left lower quadrant just medial inferiorto one of her previous port site incisions with no palpable masses. No hepatosplenomegaly. No palpable hernias. Office-based ultrasound was performed which demonstrated no hernias at the site. I recommended attempt at nerve injection to see if this improves her symptoms and she agreed to this attempt. This did not provide any pain relief. IMPRESSION: Localized left lower quadrant pain, no obvious hernia, feel most likely somatic pain however failed to improve with attempted nerve block PLAN: I agree with prior evaluations a diagnostic laparoscopy is not likely to be effective for this patient given her symptoms. I am disappointed that my nerve block did not seem to improve her symptoms. I would however recommend referral to pain management locally for attempt at nerve block performed by them. She has to be referred to [facility]. I will refer the patient to Dr. Paulino. CT scan was sent to the clinic system which I reviewed and saw no specific abnormalities that change my above impression. The patient again followed up she is now noting more issues in her left lateral to upper area. She notes that the pain does occur more after than after eating. She does note a degree of reflux. She also notes that her pain is worse after episodes of constipation. She tried a laxative which unfortunately made her more uncomfortable. Macey has not undergone prior endoscopy. The patient is being seen by me at the request of Radha Garduno my opinion and advice regarding some changes in the character of her symptoms and for consideration for endoscopy. I performed upper and lower endoscopy on February 08, 2024. The patient was found to have: Upper Endoscopy Impression: - Normal examined jejunum. - Normal examined duodenum. - Gastritis. Biopsied. - Medium-sized hiatal hernia. - Moderately severe reflux esophagitis with no bleeding. Rule out Wang's esophagus. Biopsied. - Normal middle third of esophagus. Biopsied. Lower Endoscopy Impression: - The entire examined colon is normal on direct and retroflexion views. - No specimens collected. Pathology demonstrated: FINAL DIAGNOSIS A. Stomach, antrum, biopsy: - Gastric antral type mucosa with no pathologic diagnostic abnormality; see comment. B. Esophagus, lower, biopsy: - Squamous mucosa and gastric mucosa with intestinal metaplasia compatible with Wang's esophagus; negative for dysplasia. C. Esophagus, mid, biopsy: - Squamous mucosa with no pathologic diagnostic abnormality. She is taking prilosec 40mg daily IMPRESSION: Wang's esophagitis, normal colonoscopy, left sided pain complaints PLAN: INSTRUCTIONS FOLLOWING A NORMAL COLONOSCOPY 10YR I discussed with you the findings of your colonoscopy. Since there were no worrisome abnormalities,I recommend you undergo repeat endoscopic screening every 10 years. This is the current recommendation for colon cancer screening. If you note bleeding, change in bowel habits, or other suspicious colon related symptoms before that time, those symptoms should be evaluated as necessary. INSTRUCTIONS FOR BARRETTS ESOPHAGITIS I discussed with you the findings of your upper endoscopy. Your upper endoscopy demonstrated Wang's esophagitis Esophagitis may be a form of peptic irritation, with acid moving from the stomach to the esophagus (gastroesophageal reflux). Wang's changes are microscopic findings that have the lining of the esophagus look like the stomach lining. This finding of gastric metaplasia has been shown to be associated with an increased risk of developing esophageal cancer in the future. This is particularly worrisome if atypical cells (dysplasia) are found at biopsy. Esophagitis is related to many factors - acid production, obesity, foods, smoking and alcohol. Factors that increase acid production include smoking and stress. If you smoke, stopping smoking will often cure these issues without needing other medications. Prescription strength proton pump inhibitors (PPIs) are necessary for treatment of Wang's esophagitis. Treatment with PPI are usually continued indefinitely, even if your symptoms improve or if you never had GERD symptoms. Avoiding smoking, alcohol and antiinflammatory medications are important in the successful treatment of reflux esophagitis and peptic diseases. Other factors that contribute to GERD and esophagitis are being overweight, eating large meals before laying down and certain foods. Weight loss will help improve many GERD complaints. Remaining upright after eating large meals and having a small supper will also help symptoms. Avoiding food that contribute to reflux - chocolate, caffeine, cheddar cheese may also help. Follow up upper endoscopy should be performed regularly to assure healing of the esophagus and to make sure that worsening Wang's esophagitis is treated appropriately. New or worsening symptoms such are epigastric pain, burning, difficulty swallowing or food stickingshould be relayed to your physician. Feeling full early after eating, or black, tarry, foul smelling stools are also worrisome. If you have any difficulties or concerns, you should contact our office immediately. The patient is instructed to follow-up with me for office visit to talk in person in a few weeks I have instructed my staff to forward the above information to the patient and to the appropriate providers [facility] History and physical note * Vishnu Molina MD - 02/08/2024 7:30 AM EDT UPDATED PROCEDURAL SEDATION HISTORY AND PHYSICAL EXAMINATION SERVICE DATE: 02/08/2024 SERVICE TIME: 7:02 AM PHYSICAL EXAM MUST BE COMPLETED ON ADMISSION PROCEDURE: Procedure Indications: The History and Physical (completed in the past 30 days) has been reviewed and the patient has beenexamined. The contents accurately reflect the patient's condition with the following additions or revisions since the H&P was completed. ASA Class: ASA Class:: Patient with mild systemic disease Examination indicates no changes. AIRWAY: Airway Visualization of Uvula: Yes Mouth opening greater than 2 fingerbreadths: Yes Neck Full Range of Motion: Yes LUNGS: Lungs clear to auscultation CARDIAC: Regular rhythm,Regular rate Provisional Diagnosis/Treatment Plan: GERD, LLQ pain - EGD and Colonoscopy SEDATION GOAL: Moderate This H&P can be found in the attached. SIGNATURE: Vishnu Molina MD PATIENT NAME: Macey Campbell DATE: February 08, 2024 TIME: 7:02 AM Source Note - Vishnu Molina MD - 02/08/2024 7:30 AM EDT Images from the original note were not included. HISTORY AND PHYSICAL Macey Campbell 1990 REFERRING PHYSICIAN: Self CHIEF COMPLAINT: Follow Up (LLQ pain) HPI: The patient is a 32 year old female referred for endoscopy. Macey is a patient I am following for, multiple abdominal complaints. The patient was initially referred to me in October 2022 for what I felt was more somatic abdominal pain for question of diagnostic laparoscopy. At that time my office note included: Patient has a complex history of multiple gynecologic procedures. She had a diagnostic laparoscopy in 2014 for rule out endometriosis which at the time was felt to be negative but later she had a laparoscopic hysterectomy for what turned out to be endometriosis. She had had an ectopic tubal resulting in excision of her right tube prior to that and has had 2 laparoscopic oophorectomies. The patient notes left lower quadrant pain. Is been present approximately the past 6 months. He denies pain after eating. She notes no obstructive type symptoms. She notes pain after motion or movement more in this left lower quadrant. The pain is relatively localized. She had been referred to both gynecology and seen general surgeon at [facility]-Dr. Andre Krishnamurthy who did not feel her pain was due to adhesions do not recommend laparoscopic exploration. She had been seen at both [facility] and [facility]. Abdominal exam: Soft, actively localized tenderness in the left lower quadrant just medial inferiorto one of her previous port site incisions with no palpable masses. No hepatosplenomegaly. No palpable hernias. Office-based ultrasound was performed which demonstrated no hernias at the site. I recommended attempt at nerve injection to see if this improves her symptoms and she agreed to this attempt. This did not provide any pain relief. IMPRESSION: Localized left lower quadrant pain, no obvious hernia, feel most likely somatic pain however failed to improve with attempted nerve block PLAN: I agree with prior evaluations a diagnostic laparoscopy is not likely to be effective for this patient given her symptoms. I am disappointed that my nerve block did not seem to improve her symptoms. I would however recommend referral to pain management locally for attempt at nerve block performed by them. She has to be referred to [facility]. I will refer the patient to Dr. Paulino. CT scan was sent to the clinic system which I reviewed and saw no specific abnormalities that change my above impression. The patient again followed up she is now noting more issues in her left lateral to upper area. She notes that the pain does occur more after than after eating. She does note a degree of reflux. She also notes that her pain is worse after episodes of constipation. She tried a laxative which unfortunately made her more uncomfortable. Macey has not undergone prior endoscopy. The patient is being seen by me today at the request of Radha Garduno my opinion and advice regarding some changes in the character of her symptoms and for consideration for endoscopy. PAST MEDICAL HISTORY PAST MEDICAL HISTORY Diagnosis Date GERD without esophagitis 12/31/2021 Obesity, Class I, BMI 30-34.9 12/31/2021 PCOS (polycystic ovarian syndrome) Tobacco use disorder 12/31/2021 PAST SURGICAL HISTORY PAST SURGICAL HISTORY Procedure Laterality Date LAPS ABD PRTM&OMENTUM DX W/WO SPEC BR/WA SPX 2014 Laparoscopy - for r/o endometriosis, foung to have a cyst PT ED OBSTETRICS & GYNECOLOGY N/A 12/2019 laparoscopic hysterectomy - for endometriosis - Dr. Shelley REMOVAL OF OVARY(S) Right 10/24/2020 ovarian torsion REMOVAL OF OVARY(S) Left 12/2020 Dr Jo SALPINGECTOMY Right 12/27/2016 laparoscopic Right salpingectomy- ECTOPIC CURRENT MEDICATIONS Current Outpatient Medications Medication Sig hyoscyamine sublingual (LEVSIN SL) 0.125 mg Take 1-2 tablets under tongue every 4hrs as needed. Max12 tabs per day. atorvastatin (LIPITOR) 20 mg tablet Take 1 tablet by mouth daily at bedtime. For cholesterol. amitriptyline (ELAVIL) 10 mg tablet Take 1 tablet by mouth daily at bedtime. rizatriptan (MAXALT ARMORING MACHINE OPERATOR) 10 mg disintegrating tablet Take 1 tablet by mouth as needed. May repeat in 2 hours if needed No current facility-administered medications for this visit. ALLERGIES: Cleocin [Clindamycin] and Sulfa (Sulfonamide Antibiotics) PERSONAL HISTORY: SOCIAL HISTORY Social History Tobacco Use Smoking status: Every Day Packs/day: 0.50 Years: 15.00 Pack years: 7.50 Types: Cigarettes Smokeless tobacco: Never Vaping Use Vaping Use: Never used Substance Use Topics Alcohol use: Yes Alcohol/week: 1.0 standard drink Types: 1 Glasses of Wine (5oz) per week Comment: Social Drug use: No FAMILY HISTORY: FAMILY HISTORY FAMILY HISTORY Problem Relation Age of Onset Cervical Cancer Mother other (breast cyst [Other]) Mother Hyperlipidemia Father Hypertension Father No Known Problems Brother ADD/ADHD Brother Stroke Maternal Grandmother No Known Problems Maternal Grandfather Hypertension Paternal Grandmother Hyperlipidemia Paternal Grandmother Skin Cancer Paternal Grandmother Hypertension Paternal Grandfather Heart Attack Paternal Grandfather Diabetes Paternal Grandfather Hyperlipidemia Paternal Grandfather COPD Paternal Grandfather ADD/ADHD Son No Known Problems Half-sister No Known Problems Half-sister REVIEW OF SYMPTOMS: The review of systems data was entered by the nurse and reviewed by me There are no exam notes on file for this visit. PHYSICAL EXAMINATION: General: The patient is 32 year old female, well nourished, well hydrated in no acute distress. Thepatient is oriented to time, place, and person. VITALS: Blood pressure 124/82, pulse 114, temperature 36.5 C (97.7 F), height 160 cm (5' 3), weight 81.8 kg (180 lb 6.4 oz), last menstrual period 08/04/2016, SpO2 97 %. Body mass index is 31.96 kg/m . HEENT: Normal cephalic, ataumatic, pupils are equally round, sclera are anicteric, mucous membranesare moist, oropharynx is clear. Neck has no masses, asymmetry or lymphadenopathy. Thyroid is unremarkable. Respiratory: Clear to auscultation and percussion. Normal respiratory excursion and pattern. Cardiac: Examination is regular rate and rhythm. Abdominal exam: Soft, nontender, with no palpable masses. No hepatosplenomegaly. No palpable hernias. Rectal exam: exam deferred Extremities: no clubbing, cyanosis or edema. No adenopathy. Other: LABORATORY VALUES: As Noted RADIOLOGIC STUDIES: As Noted Assessment IMPRESSION: Left-sided abdominal complaints, reflux, symptoms worsened with eating, PLAN: I plan to perform upper and lower endoscopy. We discussed the risks and benefits of the planned endoscopy. I have informed the patient that complications can occur including failure to completethe endoscopy and perforation. The patient had the opportunity to ask questions concerning the planned endoscopy. My staff has also explained the procedure to the patient in understandable terms and has given the patient printed material concerning the procedure. The patient freely consents to surgery. I plan to use golytely bowel preparation for endoscopy I plan for monitored anesthetic care. Diagnoses: (K21.9) Gastroesophageal reflux disease, unspecified whether esophagitis present (primary encounter diagnosis) My findings have been communicated to Radha Garduno via shared medical record. This note will be forwarded to Hollie Ballard MD. Return to Clinic: The patient is instructed to follow-up with me after the testing has been completed. Vishnu Molina MD * Vishnu Molina MD - 02/08/2024 7:30 AM EDT Images from the original note were not included. HISTORY AND PHYSICAL Macey Campbell 1990 REFERRING PHYSICIAN: Self CHIEF COMPLAINT: Follow Up (LLQ pain) HPI: The patient is a 32 year old female referred for endoscopy. Macey is a patient I am following for, multiple abdominal complaints. The patient was initially referred to me in October 2022 for what I felt was more somatic abdominal pain for question of diagnostic laparoscopy. At that time my office note included: Patient has a complex history of multiple gynecologic procedures. She had a diagnostic laparoscopy in 2014 for rule out endometriosis which at the time was felt to be negative but later she had a laparoscopic hysterectomy for what turned out to be endometriosis. She had had an ectopic tubal resulting in excision of her right tube prior to that and has had 2 laparoscopic oophorectomies. The patient notes left lower quadrant pain. Is been present approximately the past 6 months. He denies pain after eating. She notes no obstructive type symptoms. She notes pain after motion or movement more in this left lower quadrant. The pain is relatively localized. She had been referred to both gynecology and seen general surgeon at [facility]-Dr. Andre Krishnamurthy who did not feel her pain was due to adhesions do not recommend laparoscopic exploration. She had been seen at both [facility] and [facility]. Abdominal exam: Soft, actively localized tenderness in the left lower quadrant just medial inferiorto one of her previous port site incisions with no palpable masses. No hepatosplenomegaly. No palpable hernias. Office-based ultrasound was performed which demonstrated no hernias at the site. I recommended attempt at nerve injection to see if this improves her symptoms and she agreed to this attempt. This did not provide any pain relief. IMPRESSION: Localized left lower quadrant pain, no obvious hernia, feel most likely somatic pain however failed to improve with attempted nerve block PLAN: I agree with prior evaluations a diagnostic laparoscopy is not likely to be effective for this patient given her symptoms. I am disappointed that my nerve block did not seem to improve her symptoms. I would however recommend referral to pain management locally for attempt at nerve block performed by them. She has to be referred to [facility]. I will refer the patient to Dr. Paulino. CT scan was sent to the clinic system which I reviewed and saw no specific abnormalities that change my above impression. The patient again followed up she is now noting more issues in her left lateral to upper area. She notes that the pain does occur more after than after eating. She does note a degree of reflux. She also notes that her pain is worse after episodes of constipation. She tried a laxative which unfortunately made her more uncomfortable. Macey has not undergone prior endoscopy. The patient is being seen by me today at the request of Radha Garduno my opinion and advice regarding some changes in the character of her symptoms and for consideration for endoscopy. PAST MEDICAL HISTORY PAST MEDICAL HISTORY Diagnosis Date GERD without esophagitis 12/31/2021 Obesity, Class I, BMI 30-34.9 12/31/2021 PCOS (polycystic ovarian syndrome) Tobacco use disorder 12/31/2021 PAST SURGICAL HISTORY PAST SURGICAL HISTORY Procedure Laterality Date LAPS ABD PRTM&OMENTUM DX W/WO SPEC BR/WA SPX 2014 Laparoscopy - for r/o endometriosis, foung to have a cyst PT ED OBSTETRICS & GYNECOLOGY N/A 12/2019 laparoscopic hysterectomy - for endometriosis - Dr. Shelley REMOVAL OF OVARY(S) Right 10/24/2020 ovarian torsion REMOVAL OF OVARY(S) Left 12/2020 Dr Jo SALPINGECTOMY Right 12/27/2016 laparoscopic Right salpingectomy- ECTOPIC CURRENT MEDICATIONS Current Outpatient Medications Medication Sig hyoscyamine sublingual (LEVSIN SL) 0.125 mg Take 1-2 tablets under tongue every 4hrs as needed. Max12 tabs per day. atorvastatin (LIPITOR) 20 mg tablet Take 1 tablet by mouth daily at bedtime. For cholesterol. amitriptyline (ELAVIL) 10 mg tablet Take 1 tablet by mouth daily at bedtime. rizatriptan (MAXALT ARMORING MACHINE OPERATOR) 10 mg disintegrating tablet Take 1 tablet by mouth as needed. May repeat in 2 hours if needed No current facility-administered medications for this visit. ALLERGIES: Cleocin [Clindamycin] and Sulfa (Sulfonamide Antibiotics) PERSONAL HISTORY: SOCIAL HISTORY Social History Tobacco Use Smoking status: Every Day Packs/day: 0.50 Years: 15.00 Pack years: 7.50 Types: Cigarettes Smokeless tobacco: Never Vaping Use Vaping Use: Never used Substance Use Topics Alcohol use: Yes Alcohol/week: 1.0 standard drink Types: 1 Glasses of Wine (5oz) per week Comment: Social Drug use: No FAMILY HISTORY: FAMILY HISTORY FAMILY HISTORY Problem Relation Age of Onset Cervical Cancer Mother other (breast cyst [Other]) Mother Hyperlipidemia Father Hypertension Father No Known Problems Brother ADD/ADHD Brother Stroke Maternal Grandmother No Known Problems Maternal Grandfather Hypertension Paternal Grandmother Hyperlipidemia Paternal Grandmother Skin Cancer Paternal Grandmother Hypertension Paternal Grandfather Heart Attack Paternal Grandfather Diabetes Paternal Grandfather Hyperlipidemia Paternal Grandfather COPD Paternal Grandfather ADD/ADHD Son No Known Problems Half-sister No Known Problems Half-sister REVIEW OF SYMPTOMS: The review of systems data was entered by the nurse and reviewed by me There are no exam notes on file for this visit. PHYSICAL EXAMINATION: General: The patient is 32 year old female, well nourished, well hydrated in no acute distress. Thepatient is oriented to time, place, and person. VITALS: Blood pressure 124/82, pulse 114, temperature 36.5 C (97.7 F), height 160 cm (5' 3), weight 81.8 kg (180 lb 6.4 oz), last menstrual period 08/04/2016, SpO2 97 %. Body mass index is 31.96 kg/m . HEENT: Normal cephalic, ataumatic, pupils are equally round, sclera are anicteric, mucous membranesare moist, oropharynx is clear. Neck has no masses, asymmetry or lymphadenopathy. Thyroid is unremarkable. Respiratory: Clear to auscultation and percussion. Normal respiratory excursion and pattern. Cardiac: Examination is regular rate and rhythm. Abdominal exam: Soft, nontender, with no palpable masses. No hepatosplenomegaly. No palpable hernias. Rectal exam: exam deferred Extremities: no clubbing, cyanosis or edema. No adenopathy. Other: LABORATORY VALUES: As Noted RADIOLOGIC STUDIES: As Noted Assessment IMPRESSION: Left-sided abdominal complaints, reflux, symptoms worsened with eating, PLAN: I plan to perform upper and lower endoscopy. We discussed the risks and benefits of the planned endoscopy. I have informed the patient that complications can occur including failure to completethe endoscopy and perforation. The patient had the opportunity to ask questions concerning the planned endoscopy. My staff has also explained the procedure to the patient in understandable terms and has given the patient printed material concerning the procedure. The patient freely consents to surgery. I plan to use golytely bowel preparation for endoscopy I plan for monitored anesthetic care. Diagnoses: (K21.9) Gastroesophageal reflux disease, unspecified whether esophagitis present (primary encounter diagnosis) My findings have been communicated to Radha Garduno via shared medical record. This note will be forwarded to Hollie Ballard MD. Return to Clinic: The patient is instructed to follow-up with me after the testing has been completed. Vishnu Molina MD [facility] Miscellaneous Notes* Telephone Encounter - Kofi Campbell - 02/05/2024 12:34 PM EDT Images from the original note were not included. Contacted patient for pre-op GI phone call via either phone and or [employer]. Patient understands prep instructions, sent either [employer] and/or Mail. Understands where to report on the day of procedure. All questions answered and or sent to providers office for clarification. Patient understands [facility] arrival time could change and wait for their arrival time call from the facility the day before procedure.Patient understands must have a otr flatbed company truck driver and or responsible democrat present. Patient was givendirect phone number to call ) if patient has any further questions or given the option to respond to Sanaexpert message If one was sent . Please see the prep instructions below. The first set of instructions (Mirlalax/Dulcolax Bowel Prep) are over the counter medications that may be picked up at any pharmacy. The second set of instructions (Golytely) is by prescription only ordered by the ordering physicians office If you have any questions please contact the regional vice president surgical sales at [phone] or respond to this Sanaexpert message. . Thank you, Kofi Mirlalax/Dulcolax Bowel Prep For this bowel preparation you will need to filler picker the following medications at any pharmacy. Four (4) Dulcolax tablets (generic name Bisacodyl) 238 Gram (or 8.3 oz.) Bottle of Miralax (Generic name Polyethylene Glycol) A responsible family member or friend MUST be available to drive you home after your procedure. Youare NOT ALLOWED to drive, take a taxi, or leave the [facility]oscopy Center ALONE. If you do NOT have a responsible otr flatbed company truck driver (family member or friend) to take you home, your exam cannot be done with sedation and WILL BE cancelled. Please remove all jewelry if possible. The [facility] or [facility] (depending on where your procedure is scheduled) will call you THE DAY BEFORE YOUR PROCEDURE with your arrival time. The time in My Chart is just an estimate. Please arriveat the time you are told the day before. Medication BLOOD THINNERS - Blood thinner medication may need to be stopped or adjusted before your colonoscopy, such as Coumadin, Plavix, Paradaxa and Eliquis. - Contact prescribing physician regarding holdingany blood thinner medication. If you were seen in the general surgery office, please follow their instructions as to if and when to hold any blood thinners. If you are having this procedure done by the request of any other providers and were NOT seen in our office, please contact your physician's office to see if you need to hold any medication prior to your procedure. Insulin or diabetes pills -Please call the doctor that monitors your glucose levels. Your insulin dosage needs to be adjusted due to the diet restrictions required with this bowl preparation (please bring your diabetic medication with you on the day of your procedure). If you take aspirin, take it and ALL other medication prescribed by your doctor unless told otherwise by either the physician's office or Pre-Admission testing if having procedure done in a hospital setting ([facility]) with a small sip of water only. You may take over the counter medications if you havea headache. TAKE ALL BLOOD PRESSURE MEDICATION THE MORNING OF THE PROCEDURE. Failure to take usual morning blood pressure meds may result in cancellation of the procedure if hypertensive. Hold erectile dysfunction medications for 48 hrs. prior to the procedure. Five (5) days before your colonoscopy Do not take medications that stop Diarrhea - Imodium, Kaopectate, or Pepto Bismol Do NOT take fiber supplements - Metamucil, Citrucel, FiberCon Do NOT take products that contain iron (check vitamin label) Two (2) to three (3) days before your colonoscopy DO NOT EAT HIGH FIBER FOODS No beans, seeds (flax, sunflower, quinoa), nuts, popcorn, multigrain bread salad/vegetables, or fresh and dried fruit. Do not eat red meat 3 days before your procedure. YOU MAY EAT Lean Chicken breast, fish, eggs, and soup YOU MUST BE ON CLEAR LIQUIDS FOR 2 FULL DAYS PRIOR TO PROCEDURE Two (2) Days before your colonoscopy ONLY DRINK CLEAR LIQUIDS for 2 DAYs BEFORE YOUR COLONOSCOPY. DO NOT EAT ANY SOLID FOODS. Drink at least eight (8) ounces of clear liquids every hour after waking up. Clear fluids include: Water, apple juice, white grape juice, broth (beef, chicken or vegetable), coffee and/or tea (NO DAIRY, MILK OR CREAMER) clear carbonated beverages (sprite, 7-up, aaron-flores), Gatorade, or other sport drinks, Geraldo-Aid, Jell-O, Gummy Bears and popsicles. NOTHING RED IN COLOR. DO NOT DRINK ALCOHOL the day before or the day of your procedure. DAY 1 (2 days before your colonoscopy) Clear Liquids all day, you may have water, coffee or tea- NO DAIRY, Clear broth (Beef, Chicken or vegetable) Clear carbonated beverages, apple juice, white grape juice , Gatorade, Jell-O, Geraldo-Aid, and popsicles. NO DAIRY, TOMATO, OR ORANGE JUICE. NO RED OR PURPLE! DAY 2 - (day before your colonoscopy) SAME DAY 1, Continue clear fluids and then follow the instructions below~ 8:00 AM - May Mix the Miralax prep with 64 oz. of Gatorade or any of the clear fluids listed above and place in fridge. 1:00 PM - Take 2 Dulcolax Tablets with 8oz of water 3:00 PM - Start to drink the Miralax mixture. - Finish by midnight 4:00 PM - Take 2 Dulcolax tablets with 8oz of water. You may continue to drink clear liquids while you are taking your prep and after you finish as longas it is before midnight. Drink lots of fluids so you don't become dehydrated. Nothing to drink after midnight unless instructed otherwise by nursing staff and/or physician. Please remember to take your normal medications the morning of your procedure with a small sip of water especially your blood pressure medications. If you are diabetic, you need to contact your physiciansregarding how to take your diabetic medications and/or insulin during the prepping period and the day of the procedure. The times above are a general guide. You may change the times if needed to accommodate your schedule. Example, Instead of taking your first step at 1 PM you may take your first step at 6 PM. Your time frames would be: 6 PM take 2 Dulcolax tablets, at 8 PM you would start drinking the Miralax mixture and at 9 PM you would take two more Dulcolax tablets. Any questions please call [phone] or [phone] and ask for the general surgery nurses. How to prepare for your Colonoscopy using Golytely Your bowel must be empty so that your doctor can clearly view your colon. DO NOT eat any solid food the ENTIRE DAY before your colonoscopy. DO NOT MIX the solution until the day before your colonoscopy. The prep is only good for 24 hrs. after it has been mixed A responsible family member or friend MUST be available to drive you home after your procedure. Youare NOT ALLOWED to drive, take a taxi, or leave the Endoscopy Center ALONE. If you do NOT have a responsible otr flatbed [employer] truck driver (family member or friend) to take you home, your exam cannot be done with sedation and WILL BE cancelled. Please remove all jewelry if possible. The [facility] or [facility] (depending on where your procedure is scheduled) will call you THE DAY BEFORE YOUR PROCEDURE with your arrival time. The time in My Chart is just an estimate. Please arriveat the time you are told the day before. Medication BLOOD THINNERS - Blood thinner medication may need to be stopped or adjusted before your colonoscopy, such as Coumadin, Plavix, Paradaxa and Eliquis. - Contact prescribing physician regarding holdingany blood thinner medication. If you were seen in the general surgery office, please follow their instructions as to if and when to hold any blood thinners. If you are having this procedure done by the request of any other providers and were NOT seen in our office, please contact your physician's office to see if you need to hold any medication prior to your procedure. Insulin or diabetes pills -Please call the doctor that monitors your glucose levels. Your insulin dosage needs to be adjusted due to the diet restrictions required with this bowl preparation (please bring your diabetic medication with you on the day of your procedure). If you take aspirin, take it and ALL other medication prescribed by your doctor unless told otherwise by either the physician's office or Pre-Admission testing if having procedure done in a hospital setting ([facility]) with a small sip of water only. You may take over the counter medications if you havea headache. TAKE ALL BLOOD PRESSURE MEDICATION THE MORNING OF THE PROCEDURE. Failure to take usual morning blood pressure meds may result in cancellation of the procedure if hypertensive. Hold erectile dysfunction medications for 48 hrs. prior to the procedure. Five (5) days before your colonoscopy Do not take medications that stop Diarrhea - Imodium, Kaopectate, or Pepto Bismol Do NOT take fiber supplements - Metamucil, Citrucel, FiberCon Do NOT take products that contain iron (check vitamin label) Two (2) to three (3) days before your colonoscopy DO NOT EAT HIGH FIBER FOODS No beans, seeds (flax, sunflower, quinoa), nuts, popcorn, multigrain bread salad/vegetables, or fresh and dried fruit. Do not eat red meat 3 days before your procedure. YOU MAY EAT Lean Chicken breast, fish, eggs, and soup One (1) Day before your colonoscopy ONLY DRINK CLEAR LIQUIDS the ENTIRE DAY BEFORE YOUR COLONOSCOPY. DO NOT EAT ANY SOLID FOODS. Drink at least eight (8) ounces of clear liquids every hour after waking up. Clear fluids include: Water, apple juice, white grape juice, broth (beef, chicken or vegetable), coffee and/or tea (NO DAIRY, MILK OR CREAMER) clear carbonated beverages (sprite, 7-up, aaron-flores), Gatorade, or other sport drinks, Geraldo-Aid, Jell-O, Gummy Bears and popsicles. NOTHING RED IN COLOR. DO NOT DRINK ALCOHOL the day before or the day of your procedure. Preparing Bowel Prep Follow the instructions on the label. After mixing (warm water so the powder will dissolve), place the solution in the refrigerator. You may either add the flavor packet that comes with the bowel solution, or you may use your own (Crystal Light, Geraldo-Aid, Bowles, Country Time Lemonade, or any powder flavor that you may mix with water; NOTHING RED). If you use your own flavor, please add flavor glass by glass. You do not want to mix your own flavor in the container as you may over flavor the prep.If you add glass by glass, you may also switch flavors during the consumption of your bowel prep. Day Before Your Colonoscopy You may start your bowel prep any time after 1:00 PM before 6:00 PM. Alternate between your bowel prep and clear liquids. Bowel prep is most effective if drank in a 2 to 3 hr. time frame. You MUST drink the bowel prep until completely gone. Failure to complete bowel prep may lead to cancellation of your procedure and or having to repeat the procedure. Please continue to drink clear liquids up till 6 hrs. prior to arrival for [facility]. [facility] Instructions* Patient Instructions* Radha Garduno APRN.CNP - 01/25/2024 5:41 PM EDT Schedule stress test. Schedule echo. Increase the prilosec to 40 mg daily. Recheck in 1 month. documented in this [facility]03-25-[facility] History of Present illness Narrative* Radha Garduno APRN.CNP - 01/25/2024 5:10 PM EDT This is a 33 year old female who presents today with: Patient presents with: ER F/U: [facility] ER 01/20/24 dx: chest pain HISTORY OF PRESENT ILLNESS: Macey Campbell is a 33 year old female. Patient presents with: ER F/U: [facility] ER 01/20/24 dx: chest pain Patient presents today for emergency room follow-up. Started getting some sharp right sided pain after eating breakfast, which she normally doesn't do. Gets acid reflux when she eats. Refers that it radiated to the neck/face. Refers that the discomfort woke her up. She took an antacid, which did not help. Intermittent for several days. She went to the emergency room on 01/20/2024, with complaints of right-sided chest pains for 2 days.No shortness of breath. Was using kgnq-[id number] indigestion medications. History of prediabetic,hyperlipidemia, and tobacco history. Postmenopausal and on estrogen therapy. EKG showed nonspecific findings. Cardiac workup negative. Low risk Wells criteria for PE due to estrogen and tobacco use. D-dimer was negative. Chest x-ray was negative. She was advised to continue home Motrin. Still getting an intermittent achiness in the right chest. Refers now is just tired. Just comes randomly. Not worse w/ cough/sneeze. She had gallbladder ultrasound earlier this year which was normal. +fatty liver. PAST MEDICAL HISTORY: PAST MEDICAL HISTORY Diagnosis Date GERD without esophagitis 12/31/2021 Obesity, Class I, BMI 30-34.9 12/31/2021 PCOS (polycystic ovarian syndrome) Tobacco use disorder 12/31/2021 PAST SURGICAL HISTORY Procedure Laterality Date LAPS ABD PRTM&OMENTUM DX W/WO SPEC BR/WA SPX 2014 Laparoscopy - for r/o endometriosis, foung to have a cyst PT ED OBSTETRICS & GYNECOLOGY N/A 12/2019 laparoscopic hysterectomy - for endometriosis - Dr. Shelley REMOVAL OF OVARY(S) Right 10/24/2020 ovarian torsion REMOVAL OF OVARY(S) Left 12/2020 Dr Jo SALPINGECTOMY Right 12/27/2016 laparoscopic Right salpingectomy- ECTOPIC ALLERGIES Cleocin [Clindamycin] and Sulfa (Sulfonamide Antibiotics) MEDICATIONS Current Outpatient Medications Medication Sig rosuvastatin (CRESTOR) 5 mg tablet Take 2 tablets by mouth daily at bedtime. omeprazole (PRILOSEC) 20 mg capsule Take 1 capsule by mouth daily before breakfast. 1/2 hr before meal. spironolactone (ALDACTONE) 50 mg tablet Take 1 tablet by mouth two times a day. amitriptyline (ELAVIL) 10 mg tablet Take 1 tablet by mouth daily at bedtime. metFORMIN ER (GLUCOPHAGE XR) 500 mg 24 hr tablet Take 1 tablet by mouth daily with breakfast. estradiol (ESTRACE) 1 mg tablet rizatriptan (MAXALT ARMORING MACHINE OPERATOR) 10 mg disintegrating tablet Take 1 tablet by mouth as needed. May repeat in 2 hours if needed No current facility-administered medications for this visit. FAMILY HISTORY Problem Relation Age of Onset Cervical Cancer Mother other (breast cyst [Other]) Mother Hyperlipidemia Father Hypertension Father No Known Problems Brother ADD/ADHD Brother Stroke Maternal Grandmother No Known Problems Maternal Grandfather Hypertension Paternal Grandmother Hyperlipidemia Paternal Grandmother Skin Cancer Paternal Grandmother Hypertension Paternal Grandfather Heart Attack Paternal Grandfather Diabetes Paternal Grandfather Hyperlipidemia Paternal Grandfather COPD Paternal Grandfather ADD/ADHD Son No Known Problems Half-sister No Known Problems Half-sister Social History Tobacco Use Smoking status: Every Day Packs/day: 0.50 Years: 15.00 Additional pack years: 0.00 Total pack years: 7.50 Types: Cigarettes Smokeless tobacco: Never Vaping Use Vaping Use: Never used Substance Use Topics Alcohol use: Yes Alcohol/week: 1.0 standard drink of alcohol Types: 1 Glasses of Wine (5oz) per week Comment: Social Drug use: No EXAM: BP 122/86 Pulse 97 Resp 16 LMP 08/04/2016 SpO2 97% PHYSICAL EXAM: General Appearance: Well appearing, alert, in no acute distress, well-hydrated, well nourished.. Skin: Skin color, texture, turgor normal, no suspicious rashes or lesions. Head: Normocephalic, no masses, lesions, tenderness or abnormalities. Eyes: Anicteric sclera. Pupils are equally round and reactive to light. Extraocular movements are intact. Ears: External ears normal, canals clear. Normal TMs bilaterally. Oropharynx: Lips, mucosa, and tongue normal, teeth and gums normal, oropharynx normal. Neck: Supple, no adenopathy Lungs: Lungs clear to auscultation. No wheezing, rhonchi, rales.. Heart: RRR without murmur, gallop, or rubs. No ectopy. No reproducible pain. Abdomen: Abdomen soft, non-tender. Bowel sounds normal. No masses, organomegaly. Extremities: No deformities, edema, skin discoloration, clubbing or cyanosis. Good capillary refill. . Neurologic: Gait normal. ASSESSMENT/PLAN: 1. Chest discomfort - ICD9: 786.59, ICD10: R07.89 (primary diagnosis) Chest pain of unclear etiology, patient with significant risk factor(s) of Diabetes Mellitus, Hypertension, Hyperlipidemia, and smoking - Stress testing- see orders - ECG COMPLETE -- possible left atrial enlargement -- will get echo. Otherwise, NS without ectopy or ST changes. - ECHO - PERFLUTREN LIPID MICROSPHERES 1.1 MG/ML INJECTION IN NS 10 ML - SODIUM CHLORIDE 0.9 % (FLUSH) INJECTION SYRINGE - EXERCISE STRESS ECG (WITHOUT IMAGING) 2. Chest pain, unspecified type - ICD9: 786.50, ICD10: R07.9 Chest pain of unclear etiology, patient with significant risk factor(s) of Diabetes Mellitus, Hypertension, Hyperlipidemia, and smoking - Stress testing- see orders - ECHO - PERFLUTREN LIPID MICROSPHERES 1.1 MG/ML INJECTION IN NS 10 ML - SODIUM CHLORIDE 0.9 % (FLUSH) INJECTION SYRINGE - EXERCISE STRESS ECG (WITHOUT IMAGING) 3. Gastroesophageal reflux disease, unspecified whether esophagitis present - ICD9: 530.81, ICD10: K21.9 Will go ahead and increase omeprazole to 40 mg daily. She has EGD and colonoscopy scheduled. - OMEPRAZOLE 40 MG CAPSULE,DELAYED RELEASE Discussed treatment plan and patient voices understanding. Patient's questions answered appropriately. Medications and potential side effects were discussed and patient voices understanding. Return to the office as scheduled or as needed for worsening/no improvement. Radha Garduno APRN.ESSIE documented in this encounterF[facility]03-20-[facility]24 History of Present illness Narrative* Rafa Hawkins APRN.CNP - 01/20/2024 3:18 PM EDT Images from the original note were not included. Subjective HPI HPI Macey Campbell is a 33 year old female who presents today for CC of right sided chest pain/back pain, neck pain. This started 2 days ago. Has tried nothing for relief. Symptoms are worsened by nothing specific. At one point rated right chest pain 9/10. Denies uri symptoms. Does not worsen with rom or palpation. smoker. .Patient presents with: Back Pain: Right upper chest pain and upper back pain x 2 days PAST MEDICAL HISTORY Diagnosis Date GERD without esophagitis 12/31/2021 Obesity, Class I, BMI 30-34.9 12/31/2021 PCOS (polycystic ovarian syndrome) Tobacco use disorder 12/31/2021 PAST SURGICAL HISTORY Procedure Laterality Date LAPS ABD PRTM&OMENTUM DX W/WO SPEC BR/WA SPX 2014 Laparoscopy - for r/o endometriosis, foung to have a cyst PT ED OBSTETRICS & GYNECOLOGY N/A 12/2019 laparoscopic hysterectomy - for endometriosis - Dr. Shelley REMOVAL OF OVARY(S) Right 10/24/2020 ovarian torsion REMOVAL OF OVARY(S) Left 12/2020 Dr Jo SALPINGECTOMY Right 12/27/2016 laparoscopic Right salpingectomy- ECTOPIC ALLERGIES Cleocin [Clindamycin] and Sulfa (Sulfonamide Antibiotics) MEDICATIONS rosuvastatin (CRESTOR) 5 mg tablet Take 2 tablets by mouth daily at bedtime. omeprazole (PRILOSEC) 20 mg capsule Take 1 capsule by mouth daily before breakfast. 1/2 hr before meal. spironolactone (ALDACTONE) 50 mg tablet Take 1 tablet by mouth two times a day. amitriptyline (ELAVIL) 10 mg tablet Take 1 tablet by mouth daily at bedtime. metFORMIN ER (GLUCOPHAGE XR) 500 mg 24 hr tablet Take 1 tablet by mouth daily with breakfast. estradiol (ESTRACE) 1 mg tablet rizatriptan (MAXALT ARMORING MACHINE OPERATOR) 10 mg disintegrating tablet Take 1 tablet by mouth as needed. May repeat in 2 hours if needed FAMILY HISTORY Problem Relation Age of Onset Cervical Cancer Mother other (breast cyst [Other]) Mother Hyperlipidemia Father Hypertension Father No Known Problems Brother ADD/ADHD Brother Stroke Maternal Grandmother No Known Problems Maternal Grandfather Hypertension Paternal Grandmother Hyperlipidemia Paternal Grandmother Skin Cancer Paternal Grandmother Hypertension Paternal Grandfather Heart Attack Paternal Grandfather Diabetes Paternal Grandfather Hyperlipidemia Paternal Grandfather COPD Paternal Grandfather ADD/ADHD Son No Known Problems Half-sister No Known Problems Half-sister Social History Tobacco Use Smoking status: Every Day Packs/day: 0.50 Years: 15.00 Additional pack years: 0.00 Total pack years: 7.50 Types: Cigarettes Smokeless tobacco: Never Vaping Use Vaping Use: Never used Substance Use Topics Alcohol use: Yes Alcohol/week: 1.0 standard drink of alcohol Types: 1 Glasses of Wine (5oz) per week Comment: Social Drug use: No ROS Objective Blood pressure 110/78, pulse 98, temperature 36.6 C (97.8 F), temperature source Tympanic, resp. rate 18, weight 83 kg (182 lb 15.7 oz), last menstrual period 08/04/2016, SpO2 100%. Physical Exam Constitutional: General: She is not in acute distress. Appearance: She is not toxic-appearing or diaphoretic. HENT: Head: Normocephalic and atraumatic. Cardiovascular: Rate and Rhythm: Normal rate and regular rhythm. Heart sounds: Normal heart sounds, S1 normal and S2 normal. Pulmonary: Effort: Pulmonary effort is normal. Breath sounds: Normal breath sounds. Chest: Neurological: Mental Status: She is alert and oriented to person, place, and time. Gait: Gait is intact. ASSESSMENT/PLAN: 1. Right-sided chest pain - ICD9: 786.50, ICD10: R07.9 Will refer to ER, merlin Hawkins APRN.FRANCHISE DEVELOPMENT MANAGER documented in this encounterF[facility]02-15-[facility]24 Miscellaneous Notes* Telephone Encounter - Elaina Bartlett Ma - 12/17/2023 3:13 PM EST Patient notified of provider message. Agreeable with plan. Elaina Bartlett Ma * Telephone Encounter - Sharon Fallon RN - 12/17/2023 10:49 AM EST Mailbox is full and cannot accept any messages at this time * Telephone Encounter - Hollie Ballard MD - 12/17/2023 9:12 AM EST That would slightly raise her triglycerides but should not have a big impact on the cholesterol which is still very high. Would increase crestor. Send low cholesterol diet. Recheck labs in six weeks * Telephone Encounter - Blank Azul RN - 12/16/2023 5:09 PM EST patient notified of information Patient is still taking cholesterol medication. Patient states that labs were not done fasting as she was drinking coffee with cream and sugar it in all day. please review and advise, patient needs called back with further information concerning cholesterol * Telephone Encounter - Fern Lala RN - 12/16/2023 4:59 PM EST Called patient and no answer. Patients voicemail was full. Will need to call back later. Fern Lala, RN * Telephone Encounter - Radha Garduno APRN.CNP - 12/16/2023 2:50 PM EST Can please let patient know that I received her test results. Her ultrasound looked okay except she does have fatty liver. This happens when fat builds up in the liver. While it is usually not problematic; it can cause cirrhosis (or scarring of the liver) -- which can be problematic. Measures to prevent this include: 1. Weight loss 2. Preventing/controlling diabetes 3. Preventing/controlling elevated cholesterol. Her cholesterol continues to be high. Is she still taking the rosuvastatin? Radha Garduno APRN.CNP documented in this encounterFlower Hospital02-15-2024 Miscellaneous Notes* Telephone Encounter - Treasure Ariza Ma - 12/17/2023 9:30 AM EST See [employer] message. Treasure Ariza Ma documented in this encounterFlower Hospital02-13-2024 History of Present illness Narrative* Macey Joiner RDMS - 12/15/2023 2:30 PM EST Radiology Service Progress Note PATIENT NAME: Macey Campbell DATE OF SERVICE: December 15, 2023 TIME: 2:44 PM PATIENT IDENTITY VERIFICATION COMPLETED USING TWO (2) IDENTIFIERS: Name and Date of confirmedby patient verbally. FALL SCREENING: Has the patient had 2 falls in the last year or 1 fall with injury or currently using an Ambulatory Assistive Device (Walker, Cane, Wheelchair, Crutches, etc.)? No PATIENT GENDER DATA: Female. status: : No status: NO. PATIENT RELEVANT IMPLANT DATA REVIEWED: Not Applicable PATIENT PRESENTS WITH AN IMPLANTABLE OR ATTACHED CLINICAL RESEARCH SPEC: No RADIOLOGY DEPARTMENT: Ultrasound PERIPHERAL IV DATA: Not applicable SIGNED BY: Macey Joiner RDMS RVT December 15, 2023 2:44 PM documented in this encounterFlower Hospital02-13-2024 Instructions* Patient Instructions* Radha Garduno APRN.CNP - 12/15/2023 11:41 AM EST Start the omeprazole -- 30-60 minutes before the first meal of the day. Schedule ultrasound. Get the labwork. documented in this encounterFlower Hospital02-13-2024 History of Present illness Narrative* Radha Garduno APRN.CNP - 12/15/2023 11:28 AM EST This is a 33 year old female who presents today with: Patient presents with: Acute Visit: Stomach pain x3 days; no vomiting, diarrhea, fever HISTORY OF PRESENT ILLNESS: Macey Campbell is a 33 year old female. Patient presents with: Acute Visit: Stomach pain x3 days; no vomiting, diarrhea, fever Pt presents today with complaint of upper abdominal pain. Refers that it started 3 days ago. Dull and crampy in nature. Describes across the upper stomach. Eating doesn't seem to affect the pain. Stooling doesn't affect. No specific food triggers. Always has stomach acid. Takes an OTC heartburn pill twice daily. Takes an OTC medication twice daily. Has been taking this for a long time. No n/v/d/c. No urinary symptoms. No fever/chills. No recent ETOH intake. PAST MEDICAL HISTORY: PAST MEDICAL HISTORY Diagnosis Date GERD without esophagitis 12/31/2021 Obesity, Class I, BMI 30-34.9 12/31/2021 PCOS (polycystic ovarian syndrome) Tobacco use disorder 12/31/2021 PAST SURGICAL HISTORY Procedure Laterality Date LAPS ABD PRTM&OMENTUM DX W/WO SPEC BR/WA SPX 2014 Laparoscopy - for r/o endometriosis, foung to have a cyst PT ED OBSTETRICS & GYNECOLOGY N/A 12/2019 laparoscopic hysterectomy - for endometriosis - Dr. Shelley REMOVAL OF OVARY(S) Right 10/24/2020 ovarian torsion REMOVAL OF OVARY(S) Left 12/2020 Dr Jo SALPINGECTOMY Right 12/27/2016 laparoscopic Right salpingectomy- ECTOPIC ALLERGIES Cleocin [Clindamycin] and Sulfa (Sulfonamide Antibiotics) MEDICATIONS Current Outpatient Medications Medication Sig spironolactone (ALDACTONE) 50 mg tablet Take 1 tablet by mouth two times a day. amitriptyline (ELAVIL) 10 mg tablet Take 1 tablet by mouth daily at bedtime. metFORMIN ER (GLUCOPHAGE XR) 500 mg 24 hr tablet Take 1 tablet by mouth daily with breakfast. rosuvastatin (CRESTOR) 5 mg tablet Take 1 tablet by mouth daily at bedtime. estradiol (ESTRACE) 1 mg tablet rizatriptan (MAXALT ARMORING MACHINE OPERATOR) 10 mg disintegrating tablet Take 1 tablet by mouth as needed. May repeat in 2 hours if needed No current facility-administered medications for this visit. FAMILY HISTORY Problem Relation Age of Onset Cervical Cancer Mother other (breast cyst [Other]) Mother Hyperlipidemia Father Hypertension Father No Known Problems Brother ADD/ADHD Brother Stroke Maternal Grandmother No Known Problems Maternal Grandfather Hypertension Paternal Grandmother Hyperlipidemia Paternal Grandmother Skin Cancer Paternal Grandmother Hypertension Paternal Grandfather Heart Attack Paternal Grandfather Diabetes Paternal Grandfather Hyperlipidemia Paternal Grandfather COPD Paternal Grandfather ADD/ADHD Son No Known Problems Half-sister No Known Problems Half-sister Social History Tobacco Use Smoking status: Every Day Packs/day: 0.50 Years: 15.00 Additional pack years: 0.00 Total pack years: 7.50 Types: Cigarettes Smokeless tobacco: Never Vaping Use Vaping Use: Never used Substance Use Topics Alcohol use: Yes Alcohol/week: 1.0 standard drink of alcohol Types: 1 Glasses of Wine (5oz) per week Comment: Social Drug use: No EXAM: BP 128/76 Pulse 92 Resp 16 LMP 08/04/2016 SpO2 97% PHYSICAL EXAM: General Appearance: Well appearing, alert, in no acute distress, well-hydrated, well nourished.. Skin: Skin color, texture, turgor normal, no suspicious rashes or lesions. Head: Normocephalic, no masses, lesions, tenderness or abnormalities. Eyes: Anicteric sclera. Pupils are equally round and reactive to light. Extraocular movements are intact. . Lungs: Lungs clear to auscultation. No wheezing, rhonchi, rales.. Heart: RRR without murmur, gallop, or rubs. No ectopy. Abdomen: Abdomen soft, generalized tenderness across the upper abdomen. Mild Dale's. Bowel soundsnormal. No masses, organomegaly. No rebound/guarding. Neurologic: Gait normal. ASSESSMENT/PLAN: 1. Pain of upper abdomen - ICD9: 789.09, ICD10: R10.10 - Begin treatment with Prilosec 20 mg QD - Labs of CBC with Diff, CMP, and Lipase - Work up with RUQ ultrasound - LIPASE BLD - CBC + DIFF - COMP METABOLIC PANEL - US ABD RIGHT UPPER QUADRANT - OMEPRAZOLE 20 MG CAPSULE,DELAYED RELEASE Discussed red-flag symptoms and encouraged to proceed to the ER with symptoms. Discussed treatment plan and patient voices understanding. Patient's questions answered appropriately. Medications and potential side effects were discussed and patient voices understanding. Return to the office as scheduled or as needed for worsening/no improvement. Radha Garduno APRN.FRANCHISE DEVELOPMENT MANAGER documented in this encounterFlower Hospital01-25-2024 History of Present illness Narrative* Nereida La RT(R) - 11/26/2023 5:10 PM EST Radiology Service Progress Note PATIENT NAME: Macey Campbell DATE OF SERVICE: November 26, 2023 TIME: 5:03 PM PATIENT IDENTITY VERIFICATION COMPLETED USING TWO (2) IDENTIFIERS: Name and Date of confirmedby patient verbally. FALL SCREENING: Has the patient had 2 falls in the last year or 1 fall with injury or currently using an Ambulatory Assistive Device (Walker, Cane, Wheelchair, Crutches, etc.)? No PATIENT GENDER DATA: Female. status: : No status: NO. PATIENT RELEVANT IMPLANT DATA REVIEWED: Yes PATIENT PRESENTS WITH AN IMPLANTABLE OR ATTACHED CLINICAL RESEARCH SPEC: No RADIOLOGY DEPARTMENT: General X-ray: Exam(s) Completed: Lower Extremity X- Ray(s): Knee, AP / Lat / Tunne / Merchant Left PERIPHERAL IV DATA: Not applicable SIGNED BY: Nereida La, RT(R) November 26, 2023 5:03 PM documented in this encounterFlower Hospital12-11-2023 Telephone encounter Note * Telephone Encounter - Garima Ervin - 10/12/2023 10:21 AM EST Patient scheduled with Dr. Jesse Meza with MAC per surgeon on 02/08/2024. Patient asking to beon waitlist for anything sooner with Dr. Jesse Ervin [employer] [facility]12[facility]23 Miscellaneous Notes* Telephone Encounter - Garima Ervin - 10/12/2023 10:21 AM EST Patient scheduled with Dr. Jesse Meza with [facility] per surgeon on 02/08/2024. Patient asking to beon waitlist for anything sooner with Dr. Jesse Ervin [employer] documented [facility] encounterFlower [facility]12-11-2023 Miscellaneous Notes* Telephone Encounter - Garima Ervin - 10/12/2023 10:19 AM EST Patient scheduled with Dr. Jesse Meza with [facility] per surgeon on 02/08/2024. Patient asking to beon waitlist for anything sooner with Dr. Jesse Ervin [employer] documented [facility] encounterF[facility]11-27-2023 Miscellaneous Notes* Telephone Encounter - Kofi Yu - 09/28/2023 11:56 AM EST Patient phones requesting refills as follows: Requested Prescriptions Pending Prescriptions Disp Refills amitriptyline (ELAVIL) 10 mg tablet 30 tablet 2 Sig: Take 1 tablet by mouth daily at bedtime. PIERO 08/25/23 NOV 09/29/23 Please review and advise. Kofi Yu documented in this encounterFlower Hospital10-24-2023 Instructions* Patient Instructions* Radha Garduno APRN.ESSIE - 08/25/2023 8:13 AM EDT Start the spironolactone. Get labs. Recheck in 1 month. documented in this encounterFlower Hospital10-24-2023 History of Present illness Narrative* Radha Garduno APRN.CNP - 08/25/2023 7:48 AM EDT This is a 33 year old female who presents today with: No chief complaint on file. HISTORY OF PRESENT ILLNESS: Macey Campbell is a 33 year old female. No chief complaint on file. Pt presents today with complaint of facial hair growth. She had PCOS. Refers that she is a the point of shaving. Had a hx of hyster (2019) w/ BSO (2020). (Noncancerous reasons and denies any abnormal paps in the last 20 years). Refers that she is shaving every day because of the hair growth. Hair is course and dark. (More than peach fuzz). Sides of face and just above jawline. Has a little dark hair on the arms and belly. Refers that this growth has been slowly progressive. PAST MEDICAL HISTORY: PAST MEDICAL HISTORY Diagnosis Date GERD without esophagitis 12/31/2021 Obesity, Class I, BMI 30-34.9 12/31/2021 PCOS (polycystic ovarian syndrome) Tobacco use disorder 12/31/2021 PAST SURGICAL HISTORY Procedure Laterality Date LAPS ABD PRTM&OMENTUM DX W/WO SPEC BR/WA SPX 2014 Laparoscopy - for r/o endometriosis, foung to have a cyst PT ED OBSTETRICS & GYNECOLOGY N/A 12/2019 laparoscopic hysterectomy - for endometriosis - Dr. Shelley REMOVAL OF OVARY(S) Right 10/24/2020 ovarian torsion REMOVAL OF OVARY(S) Left 12/2020 Dr Sandro SALPINGECTOMY Right 12/27/2016 laparoscopic Right salpingectomy- ECTOPIC ALLERGIES Cleocin [Clindamycin] and Sulfa (Sulfonamide Antibiotics) MEDICATIONS Current Outpatient Medications Medication Sig rosuvastatin (CRESTOR) 5 mg tablet Take 1 tablet by mouth daily at bedtime. estradiol (ESTRACE) 1 mg tablet meloxicam (MOBIC) 15 mg tablet Take 1 tablet by mouth once daily. With food. rizatriptan (MAXALT ARMORING MACHINE OPERATOR) 10 mg disintegrating tablet Take 1 tablet by mouth as needed. May repeat in 2 hours if needed amitriptyline (ELAVIL) 10 mg tablet Take 1 tablet by mouth daily at bedtime. No current facility-administered medications for this visit. FAMILY HISTORY Problem Relation Age of Onset Cervical Cancer Mother other (breast cyst [Other]) Mother Hyperlipidemia Father Hypertension Father No Known Problems Brother ADD/ADHD Brother Stroke Maternal Grandmother No Known Problems Maternal Grandfather Hypertension Paternal Grandmother Hyperlipidemia Paternal Grandmother Skin Cancer Paternal Grandmother Hypertension Paternal Grandfather Heart Attack Paternal Grandfather Diabetes Paternal Grandfather Hyperlipidemia Paternal Grandfather COPD Paternal Grandfather ADD/ADHD Son No Known Problems Half-sister No Known Problems Half-sister Social History Tobacco Use Smoking status: Every Day Packs/day: 0.50 Years: 15.00 Additional pack years: 0.00 Total pack years: 7.50 Types: Cigarettes Smokeless tobacco: Never Vaping Use Vaping Use: Never used Substance Use Topics Alcohol use: Yes Alcohol/week: 1.0 standard drink of alcohol Types: 1 Glasses of Wine (5oz) per week Comment: Social Drug use: No EXAM: [facility] 08/04/2016 PHYSICAL EXAM: General Appearance: Well appearing, alert, in no acute distress, well-hydrated, well nourished.. Skin: Skin color, texture, turgor normal, no suspicious rashes or lesions. Head: Normocephalic, no masses, lesions, tenderness or abnormalities. Eyes: Anicteric sclera. Extraocular movements are intact. Lungs: Lungs clear to auscultation. No wheezing, rhonchi, rales.. Heart: RRR without murmur, gallop, or rubs. No ectopy. Extremities: No deformities, edema, skin discoloration, clubbing or cyanosis. Good capillary refill. Neurologic: Gait normal. ASSESSMENT/PLAN: 1. PCOS (polycystic ovarian syndrome) - ICD9: 256.4, ICD10: E28.2 Will check labs. Start spironolactone. Recheck in 1 month -- sooner if needed. Discussed potential side effects of ordered medications. Patient voices understanding. - HGB A1C - CBC + DIFF - COMP METABOLIC PANEL - TESTOSTERONE, FREE AND TOTAL - TSH BLD - T4 FREE/FREE THYROX - SPIRONOLACTONE 25 MG TABLET Discussed treatment plan and patient voices understanding. Patient's questions answered appropriately. Medications and potential side effects were discussed and patient voices understanding. Return to the office as scheduled or as needed for worsening/no improvement. Radha Garduno APRN.CNP documented in this encounterFlower Hospital10-03-2023 Miscellaneous Notes* Telephone Encounter - Sharon Fallon RN - 08/04/2023 9:25 AM EDT Pt returned call and given provider's message below with verbalized understanding. Patient agreeable. * Telephone Encounter - Teresa Whitt Ma - 08/04/2023 8:48 AM EDT Called and left message on patients voicemail to return call to the office and ask to speak with a triage nurse. Teresa Whitt Ma * Telephone Encounter - Radha Garduno APRN.CNP - 08/03/2023 10:21 PM EDT Lets try changing her to crestor. I sent this into the pharmacy. Please recheck fasting labs in 3 months. Radha Garduno APRN.ESSIE * Telephone Encounter - Sharon Fallon RN - 08/03/2023 2:55 PM EDT Pt returned call and given provider's message below with verbalized understanding. Patient reports she has not been taking her cholesterol medications regularly. Reports they make her sleepy, and when she takes her amitriptyline medication also, she is out. 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 Asking if provider can prescribe something for her that doesn't make her sleepy? Please advise patient. * Telephone Encounter - Treasure Ariza Ma - 08/03/2023 10:21 AM EDT Tried to reach pt, VM full. Unable to leave message. [employer] message sent to pt, asking them to call back for results. Treasure Ariza MA * Telephone Encounter - Kofi Yu LPN - 07/31/2023 4:05 PM EDT Phoned pt, no answer, unable to leave message d/t vm is full. Kofi Yu LPN * Telephone Encounter - Radha Garduno APRN.CNP - 07/31/2023 3:42 PM EDT Can please let patient know that I received her lab results. Her cholesterol level did improve, butis still elevated. Has she been taking her atorvastatin regularly? Any missed doses? If she is not having any problems with the medication, I would suggest increasing the atorvastatin dose. Please let me know if she would like to do this. Radha Garduno APRN.ESSIE documented in this encounterFlower Hospital06-22-2023 Miscellaneous Notes* Telephone Encounter - Ana Hale RN - 04/23/2023 3:12 PM EDT Spoke with patient. Given message from provider's office. Patient verbalizes understanding. Ana Hale RN * Telephone Encounter - Jocelyn Gutierrez LPN - 04/23/2023 2:54 PM EDT TC to pt. LM to call office, ask for triage nurse to get results. Jocelyn Gutierrez LPN * Telephone Encounter - Radha Garduno APRN.CNP - 04/23/2023 2:53 PM EDT Lets have her repeat fasting labs in 3 months. The orders are in. Radha Garduno APRN.ESSIE * Telephone Encounter - Sharon Fallon RN - 04/23/2023 2:34 PM EDT Patient returned call and given provider's message below with verbalized understanding. Patient reports she was off of atorvastatin for a couple of months and just got it refilled and started taking again. Asking provider to let her know if you want her to do anything different. * Telephone Encounter - Jocelyn Gutierrez LPN - 04/23/2023 2:16 PM EDT TC to pt. LM to call office, ask for triage nurse to get results. Jocelyn Gutierrez LPN * Telephone Encounter - Radha Garduno APRN.FRANCHISE DEVELOPMENT MANAGER - 04/23/2023 1:54 PM EDT Can please let patient know that we received her lab results. Her cholesterol level is really elevated. Is she still taking the atorvastatin? Was she off of it for awhile? Or any missed doses? Her A1C also continues to show her to be in the prediabetic range. Please work on diabetic diet, byeating less sugar, bread, potato, pasta, rice, corn, corn syrup. Radha Garduno APRN.ESSIE documented in this encounterFlower Hospital06-19-2023 Instructions* Patient Instructions* Radha Garduno APRN.CNP - 04/20/2023 2:48 PM EDT Try the levsin. Schedule with gen surg. Schedule w/ GI. documented in this encounterFlower Hospital06-19-2023 History of Present illness Narrative* Radha Garduno APRN.CNP - 04/20/2023 2:19 PM EDT This is a 32 year old female who presents today with: Patient presents with: Abdominal Pain HISTORY OF PRESENT ILLNESS: Macey Campbell is a 32 year old female. Patient presents with: Abdominal Pain Pt present today with complaint of abdominal pain. Left lower quad. Refers that last August, had some pain that was more in the lower pelvic/inguinal area and had a work-up for this. She had been seen by gen surg and no response to a nerve block. Was referred to pain management, but reports no one every called her, so did not follow-up. Refers now the pain is higher up in the abdomen left abdomen/pelvis. Refers that notices that the pain is more likely to occur after eating. No identifiable specific food triggers. No n/v. Sometimes constipation and sometimes diarrhea. No hematochezia/melena. + bloating. Refers some GERD and stomach acid -- takes an OTC acid pulp grinder and blender. Will feel like a squeezing in the area. Refers sharp squeezing sensation that will last a couple ofminutes. Refers that it has been going on for the last couple of months. Moving bowels does not affect the pain. However, pain is probably a little worse when she has constipation. Tried a laxative a couple of months ago, but made more uncomfortable. Did have some issues with back pain. Had OMT w/ Chas, which was helpful. No n/t. Has had urinary tract infections in the past, and does not feel similar. No remaining reproductive organs. Hx of diverticulitis in the past. PAST MEDICAL HISTORY: PAST MEDICAL HISTORY Diagnosis Date GERD without esophagitis 12/31/2021 Obesity, Class I, BMI 30-34.9 12/31/2021 PCOS (polycystic ovarian syndrome) Tobacco use disorder 12/31/2021 PAST SURGICAL HISTORY Procedure Laterality Date LAPS ABD PRTM&OMENTUM DX W/WO SPEC BR/WA SPX 2014 Laparoscopy - for r/o endometriosis, foung to have a cyst PT ED OBSTETRICS & GYNECOLOGY N/A 12/2019 laparoscopic hysterectomy - for endometriosis - Dr. Shelley REMOVAL OF OVARY(S) Right 10/24/2020 ovarian torsion REMOVAL OF OVARY(S) Left 12/2020 Dr Jo SALPINGECTOMY Right 12/27/2016 laparoscopic Right salpingectomy- ECTOPIC ALLERGIES Cleocin [Clindamycin] and Sulfa (Sulfonamide Antibiotics) MEDICATIONS Current Outpatient Medications Medication Sig atorvastatin (LIPITOR) 20 mg tablet Take 1 tablet by mouth daily at bedtime. For cholesterol. amitriptyline (ELAVIL) 10 mg tablet Take 1 tablet by mouth daily at bedtime. rizatriptan (MAXALT ARMORING MACHINE OPERATOR) 10 mg disintegrating tablet Take 1 tablet by mouth as needed. May repeat in 2 hours if needed tiZANidine (ZANAFLEX) 4 mg tablet Take 1 tablet by mouth every 8 hours as needed (muscle spasms). estradiol (ESTRACE) 2 mg tablet Take 2 mg by mouth once daily. Cholecalciferol, Vitamin D3, 125 mcg (5,000 unit) cap Take 1 capsule by mouth once daily. Current Facility-Administered Medications Medication Dose Route Frequency perflutren lipid microspheres 1.3 mL in NaCl (PF) 0.9% 10 mL injection (DEFINITY) INTRAVENOUS DIRECTED PRN sodium chloride 0.9 % (flush) 10 mL (BD POSIFLUSH) 10 mL INTRAVENOUS DIRECTED PRN FAMILY HISTORY Problem Relation Age of Onset Cervical Cancer Mother other (breast cyst [Other]) Mother Hyperlipidemia Father Hypertension Father No Known Problems Brother ADD/ADHD Brother Stroke Maternal Grandmother No Known Problems Maternal Grandfather Hypertension Paternal Grandmother Hyperlipidemia Paternal Grandmother Skin Cancer Paternal Grandmother Hypertension Paternal Grandfather Heart Attack Paternal Grandfather Diabetes Paternal Grandfather Hyperlipidemia Paternal Grandfather COPD Paternal Grandfather ADD/ADHD Son No Known Problems Half-sister No Known Problems Half-sister Social History Tobacco Use Smoking status: Every Day Packs/day: 0.50 Years: 15.00 Pack years: 7.50 Types: Cigarettes Smokeless tobacco: Never Vaping Use Vaping Use: Never used Substance Use Topics Alcohol use: Yes Alcohol/week: 1.0 standard drink Types: 1 Glasses of Wine (5oz) per week Comment: Social Drug use: No EXAM: BP 136/88 Pulse 106 Resp 16 LMP 08/04/2016 SpO2 96% PHYSICAL EXAM: General Appearance: Well appearing, alert, in no acute distress, well-hydrated, well nourished.. Skin: Skin color, texture, turgor normal, no suspicious rashes or lesions. Head: Normocephalic, no masses, lesions, tenderness or abnormalities. Eyes: Anicteric sclera. Pupils are equally round and reactive to light. Extraocular movements are intact. Lungs: Lungs clear to auscultation. No wheezing, rhonchi, rales.. Heart: RRR without murmur, gallop, or rubs. No ectopy. Abdomen: Abdomen soft. Bowel sounds normal. No masses, organomegaly. + tenderness in the left mid-abdomen. No rebound/guarding. Extremities: No deformities, edema, skin discoloration, clubbing or cyanosis. Good capillary refill. Neurologic: Gait normal. ASSESSMENT/PLAN: 1. LLQ pain - ICD9: 789.04, ICD10: R10.32 Change in character from her previous pain that she had workup for. Will try levsin to see if that helps with the squeezing pain she is getting. Discussed with patient that likely not an acute diverticulitis, as pain has been more chronic in nature. However, if she gets worsening pain, vomiting, passing blood, fever/chills, etc -- she should proceed to ER. - CONSULT TO GENERAL SURGERY - CONSULT TO GASTROENTEROLOGY - UA DIP, URINE (POC) Discussed treatment plan and patient voices understanding. Patient's questions answered appropriately. Medications and potential side effects were discussed and patient voices understanding. Return to the office as scheduled or as needed for worsening/no improvement. Radha Garduno APRN.FRANCHISE DEVELOPMENT MANAGER documented in this encounterF[facility]06-13-2023 Miscellaneous Notes* Telephone Encounter - IESHA Sam - 04/14/2023 9:06 AM EDT In review of patient chart, there is an appointment scheduled for lab work tomorrow, 04/13/23. sent to patient informing that lab work orders were placed. IESHA Sam * Telephone Encounter - Hollie Ballard MD - 04/14/2023 8:20 AM EDT Labs ordered. * Telephone Encounter - Elaina Bartlett Ma - 04/14/2023 7:57 AM EDT Patient has been identified by name and date of : Yes Requested Prescriptions Pending Prescriptions Disp Refills atorvastatin (LIPITOR) 20 mg tablet 30 tablet 5 Sig: Take 1 tablet by mouth daily at bedtime. For cholesterol. PIERO: 02/02/23 Last filled 04/16/22, #30 w/5 refills Last lipid 04/15/22 RX INSTRUCTIONS: Patient aware RX will be sent to pharmacy. No need to notify patient. Elaina Bartlett Ma documented in this encounterF[facility] Hospital04-06-2023 Miscellaneous Notes* Telephone Encounter - Chari Gonzalez LPN - 02/05/2023 11:26 AM EDT Patient returned call and went over notes below from [facility] BATEMAN with understanding. Aware rx x 2 to pharmacy. * Telephone Encounter - Siobhan Beltran RN - 02/05/2023 10:48 AM EDT VM left for patient to call provider's office for message below. Siobhan Beltran, RN * Telephone Encounter - Sharon Ellison PA-C - 02/05/2023 8:58 AM EDT I apologize for not getting this in yesterday due to a chart error. Needs to be seen if something is popping. In then interim can start: The following approved medication requests have been transmitted electronically. Requested Prescriptions Signed Prescriptions Disp Refills methylPREDNISolone (MEDROL, NIKKI,) 4 mg Dose-Pack 21 tablet 0 Sig: Follow dosing instructions, take with food. tiZANidine (ZANAFLEX) 4 mg tablet 30 tablet 0 Sig: Take 1 tablet by mouth every 8 hours as needed (muscle spasms). Sharon Ellison PA-C documented in this encounterFlower Hospital04-03-2023 Instructions* Patient Instructions* Sharon Elliosn PA-C - 02/02/2023 3:29 PM EDT See instructions from [facility] regarding lumbar rehab and piriformis stretching. Ice/ moist heat, lineaments, OTC analgesics as needed. Stretching and posture reviewed. documented in this encounterFlower Hospital04-03-2023 History of Present illness Narrative* Sharon Ellison PA-C - 02/02/2023 3:15 PM EDT 32 year old female with c/o right hip pain over last 3 weeks. Was sitting in class on a stool when pain started. Hx remote hip strain 2019. No known injuries. Sometimes achy, sometime sharp pain with weight bearing which feels week from tailbone all the way around to the front. No numbness, tingling, weakness. Current ibuprofen 4 tab three times a day and muscle relaxers from old rx. UC visit 01/26/2021 right hip xr WNL. HISTORIES FAMILY HISTORY Problem Relation Age of Onset Cervical Cancer Mother other (breast cyst [Other]) Mother Hyperlipidemia Father Hypertension Father No Known Problems Brother ADD/ADHD Brother Stroke Maternal Grandmother No Known Problems Maternal Grandfather Hypertension Paternal Grandmother Hyperlipidemia Paternal Grandmother Skin Cancer Paternal Grandmother Hypertension Paternal Grandfather Heart Attack Paternal Grandfather Diabetes Paternal Grandfather Hyperlipidemia Paternal Grandfather COPD Paternal Grandfather ADD/ADHD Son No Known Problems Half-sister No Known Problems Half-sister PAST MEDICAL HISTORY Diagnosis Date GERD without esophagitis 12/31/2021 Obesity, Class I, BMI 30-34.9 12/31/2021 PCOS (polycystic ovarian syndrome) Tobacco use disorder 12/31/2021 PAST SURGICAL HISTORY Procedure Laterality Date LAPS ABD PRTM&OMENTUM DX W/WO SPEC BR/WA SPX 2014 Laparoscopy - for r/o endometriosis, foung to have a cyst PT ED OBSTETRICS & GYNECOLOGY N/A 12/2019 laparoscopic hysterectomy - for endometriosis - Dr. Shelley REMOVAL OF OVARY(S) Right 10/24/2020 ovarian torsion REMOVAL OF OVARY(S) Left 12/2020 Dr Jo SALPINGECTOMY Right 12/27/2016 laparoscopic Right salpingectomy- ECTOPIC Social History Tobacco Use Smoking status: Every Day Packs/day: 0.50 Years: 15.00 Pack years: 7.50 Types: Cigarettes Smokeless tobacco: Never Vaping Use Vaping Use: Never used Substance Use Topics Alcohol use: Yes Alcohol/week: 1.0 standard drink Types: 1 Glasses of Wine (5oz) per week Comment: Social Drug use: No ACTIVE PROBLEM LIST Gastroenteritis Abdominal Pain, Acute, Right Upper Quadrant Tachycardia Menstrual Irregularity Infertility Associated With Anovulation Pelvic Pain in Female Gerd Without Esophagitis Obesity, Class I, Bmi 30-34.9 Tobacco Use Disorder Hyperglycemia Mixed Hyperlipidemia Current Outpatient Medications Medication Sig Dispense Refill amitriptyline (ELAVIL) 10 mg tablet Take 1 tablet by mouth daily at bedtime. 30 tablet 2 rizatriptan (MAXALT ARMORING MACHINE OPERATOR) 10 mg disintegrating tablet Take 1 tablet by mouth as needed. May repeat in 2 hours if needed 6 tablet 2 atorvastatin (LIPITOR) 20 mg tablet Take 1 tablet by mouth daily at bedtime. For cholesterol. 30 tablet 5 estradiol (ESTRACE) 2 mg tablet Take 2 mg by mouth once daily. Cholecalciferol, Vitamin D3, 125 mcg (5,000 unit) cap Take 1 capsule by mouth once daily. 90 capsule 0 Current Facility-Administered Medications Medication Dose Route Frequency Provider Last Rate Last Admin perflutren lipid microspheres 1.3 mL in NaCl (PF) 0.9% 10 mL injection (DEFINITY) INTRAVENOUS DIRECTED PRN Hollie Ballard MD sodium chloride 0.9 % (flush) 10 mL (BD POSIFLUSH) 10 mL INTRAVENOUS DIRECTED PRN Hollie Ballard MD HEPATITIS B(1 of 3 - 3-dose series) Never done PNEUMOCOCCAL(1 - PCV) Never done HPV TESTING Never done PAP TESTING due on 12/05/2020 COVID-19 VACCINE(4 - Booster for Pfizer series) due on 11/17/2021 DEPRESSION ASSESSMENT Never done EXAM: BP 130/80 Pulse 92 Resp 16 Wt 82.6 kg (182 lb) LMP 08/04/2016 SpO2 98% BMI 32.24 kg/m Pleasant overweight adult woman in no acute distress. Alert, well oriented, pleasant mood and affect. Some discomfort standing, sitting, getting on and off table. Skin warm, dry, pink to lips and nailbeds. Respirations regular and unlabored. Standing posture with relatively even hips and shoulders, she has a very slight lordosis in the lumbar area. Tender trigger points primarily in the left paralumbar area and into quadratus lumborum. On forward flexion patient has restriction in left SI joint. Also restricted range of motion in upper lumbar and lower thoracic. Positive tender trigger points in upper lumbar muscles. DTRs 2 out of 4 plus and symmetric knee jerk and Achilles. Negative straight leg raise. No pain with internal/external range of motion with the hips on either side. Femoral stretch negative. With permission: OMT with myofascial release to tender trigger points in QL, paralumbar, piriformismuscles bilaterally, muscle energy techniques for lumbar, HVLA to right sacroiliac, upper lumbar and lower thoracic segments with significant improvement in pain, range of motion restored, able to forward flex to toes with minimal discomfort. Able to sit and stand with minimal discomfort. ASSESSMENT/PLAN: 1. Somatic dysfunction of spine, thoracic - ICD9: 739.2, ICD10: M99.02 (primary diagnosis) 2. Somatic dysfunction of spine, lumbar - ICD9: 739.3, ICD10: M99.03 3. Somatic dysfunction of left sacroiliac joint - ICD9: 739.4, ICD10: M99.04 Ice, moist heat, liniments, [id number] analgesics as directed by bottle as needed. Reviewed lumbar rehab sheets from [email or web address]. Also provided piriformis exercises from [email or web address]. Follow-up over the next week if symptoms are returning or worsening, may need a few sessions to establish longer-term stability. Low suspicion at this time for radicular etiology. Sharon Ellison PA-C documented in this encounterFlower Hospital03-27-2023 History of Present illness Narrative* Altagracia Faith RT(R) - 01/26/2023 10:10 AM EDT Radiology Service Progress Note PATIENT NAME: Macey Campbell DATE OF SERVICE: January 26, 2023 TIME: 10:18 AM PATIENT IDENTITY VERIFICATION COMPLETED USING TWO (2) IDENTIFIERS: Name and Date of confirmedby patient verbally. FALL SCREENING: Has the patient had 2 falls in the last year or 1 fall with injury or currently using an Ambulatory Assistive Device (Walker, Cane, Wheelchair, Crutches, etc.)? No PATIENT GENDER DATA: Female. status: : No status: NO. PATIENT RELEVANT IMPLANT DATA REVIEWED: Yes RADIOLOGY DEPARTMENT: General X-ray: Exam(s) Completed: Pelvis X-Ray: Pelvis with Hip Left PERIPHERAL IV DATA: Not applicable SIGNED BY: RT Arturo(R) January 26, 2023 10:18 AM documented in this encounterFlower Hospital03-27-2023 History of Present illness Narrative* Josh Johnson MD - 01/26/2023 9:51 AM EDT Patient presents with: Pain: Left hip pain x 2 weeks HPI: Left hip pain: Duration: 2 weeks. Somewhat similar to hip strain a few years ago. Location: left hip Character: aching, feels like it needs to pop Radiation: to the pubic area Aggravating: bending, sitting, and squatting Relieving: tried hot tub Pain relievers: Motrin and muscle relaxer Associated: Pertinent negatives: Denies numbness, fever, injury Imaging: Had a CT scan in August for LLQ pain, reportedly normal. [place] maybe pelvic adhesions. MEDICATIONS: amitriptyline (ELAVIL) 10 mg tablet^Take 1 tablet by mouth daily at bedtime.^Disp: 30 tablet^Rfl: 2 rizatriptan (MAXALT ARMORING MACHINE OPERATOR) 10 mg disintegrating tablet^Take 1 tablet by mouth as needed. May repeat in 2 hours if needed^Disp: 6 tablet^Rfl: 2 atorvastatin (LIPITOR) 20 mg tablet^Take 1 tablet by mouth daily at bedtime. For cholesterol.^Disp:30 tablet^Rfl: 5 estradiol (ESTRACE) 2 mg tablet^Take 2 mg by mouth once daily.^Disp: ^Rfl: Cholecalciferol, Vitamin D3, 125 mcg (5,000 unit) cap^Take 1 capsule by mouth once daily.^Disp: 90 capsule^Rfl: 0 ALLERGIES: ALLERGIES Allergen Reactions Cleocin [Clindamyci* Rash Sulfa (Sulfonamide * Rash VITALS: BP 124/82 Pulse 88 Temp 36.7 C (98 F) Resp 21 Wt 82.6 kg (182 lb) LMP 08/04/2016 SpO2 100% BMI 32.24 kg/m PHYSICAL EXAM: GEN: pleasant, no acute distress, alert HEENT: PERRL, EOMI, MMM NECK: supple, HEART: regular rate, regular rhythm, no murmurs LUNGS: clear to auscultation, no wheezes or crackles, no increased WOB EXT: no clubbing, no cyanosis, no edema BACK: Normal curvature of spine. No midline tenderness. Left lateral lumbosacral junction tenderness. Straight leg test negative. Normal lower extremity strength. HIP: Left compared to right. Nontender over greater trochanter. Points to buttock posterior to the hip as primary location of pain. No pain with internal or external rotation. No pain with hip flexion. ASSESSMENT/PLAN: 1. Acute hip pain, left - ICD9: 719.45, ICD10: M25.552 - XR HIP GENERAL 3V PELV/AP/LAT LEFT - no obvious fractures. Spurs at the left superior iliac spine. Radiology interpretation is pending. The patient will be notified if there is a significant finding in the report not discussed at the time of the visit. - PREDNISONE 10 MG TABLET taper was helpful for hip pain a few years ago. Follow-up if not improving. Josh Johnson MD [facility] Miscellaneous Notes* Telephone Encounter - Kofi Yu LPN - 01/05/2023 1:19 PM EST Patient phones requesting refills as follows: Requested Prescriptions Pending Prescriptions Disp Refills amitriptyline (ELAVIL) 10 mg tablet 30 tablet 2 Sig: Take 1 tablet by mouth daily at bedtime. rizatriptan (MAXALT ARMORING MACHINE OPERATOR) 10 mg disintegrating tablet 6 tablet 2 Sig: Take 1 tablet by mouth as needed. May repeat in 2 hours if needed PIERO 10/20/22 NOV no upcoming appt Please review and advise. Kofi Yu LPN [facility]12[facility] Instructions* Patient Instructions* Radha Garduno APRN.CNP - 10/20/2022 11:56 AM EST Schedule w/ general surgery. [facility]12[facility] History of Present illness Narrative* Radha Garduno APRN.CNP - 10/20/2022 11:34 AM EST This is a 32 year old female who presents today with: Patient presents with: ER F/U: ER follow up ([facility] and [facility]) in August dx: abd pain- LLQ HISTORY OF PRESENT ILLNESS: Macey Campbell is a 32 year old female. Patient presents with: ER F/U: ER follow up ([facility] and [facility]) in August dx: abd pain- LLQ Pt presents today for ER follow-up. LLQ pain -- started a couple of months ago when she was walking -- felt like a pop in her left lower abdomen. Went to [facility] -- Had a CT scan, reportedly normal. [place] maybe pelvic adhesions. The next day, had a near syncope episode - associated w/ pain. Went to [facility]. Had another CT (with contrast) and labs. Was noted to have some subcentimeter mesenteric lymph nodes. White count was mildly elevated at 14.5. She reached out to [employer]INE[employer]. HOTEL MAINTENANCE ENGINEER sent her to gen surg -- told they do not do exploratory laps. Did not feel adhesions would be causing her pain. Refers she continues to have the pain. Achy/dull. Sometimes sharp. Describes in the LLQ and left inguinal area. Not as severe as the previous torsion. Sometimes will have some nausea with the pain. No vomiting. No diarrhea. Occ constipation, but nothing significant. No hematochezia/melena. Eating doesn't really affect the pain. Refers if she eats something really heavy, may notice more, but nothing consistent. Moving bowel does not affect the pain. No certain movements affect/cause pain, but increased activity may worsen pain by the end of the day. Occ bloating. Passing gas doesn't affect the pain. Has had urinary urgency for years, nothing new. She has a history of 5 pelvic surgeries. There are no remaining reproductive organs. PAST MEDICAL HISTORY: PAST MEDICAL HISTORY Diagnosis Date GERD without esophagitis 12/31/2021 Obesity, Class I, BMI 30-34.9 12/31/2021 PCOS (polycystic ovarian syndrome) Tobacco use disorder 12/31/2021 PAST SURGICAL HISTORY Procedure Laterality Date F SUBTOTAL ABD HYSTERECTOMY N/A 12/2019 Partial LAPS ABD PRTM&OMENTUM DX W/WO SPEC BR/WA SPX Laparoscopy REMOVAL OF OVARY(S) Right 10/24/2020 ovarian torsion REMOVAL OF OVARY(S) Left 12/2020 Dr Jo SALPINGECTOMY Right 12/27/2016 laparoscopic Right salpingectomy- ECTOPIC ALLERGIES Cleocin [Clindamycin] and Sulfa (Sulfonamide Antibiotics) MEDICATIONS Current Outpatient Medications Medication Sig amitriptyline (ELAVIL) 10 mg tablet Take 1 tablet by mouth daily at bedtime. rizatriptan (MAXALT ARMORING MACHINE OPERATOR) 10 mg disintegrating tablet Take 1 tablet by mouth as needed. May repeat in 2 hours if needed atorvastatin (LIPITOR) 20 mg tablet Take 1 tablet by mouth daily at bedtime. For cholesterol. estradiol (ESTRACE) 2 mg tablet Take 2 mg by mouth once daily. Cholecalciferol, Vitamin D3, 125 mcg (5,000 unit) cap Take 1 capsule by mouth once daily. Current Facility-Administered Medications Medication Dose Route Frequency perflutren lipid microspheres 1.3 mL in NaCl (PF) 0.9% 10 mL injection (DEFINITY) INTRAVENOUS DIRECTED PRN sodium chloride 0.9 % (flush) 10 mL (BD POSIFLUSH) 10 mL INTRAVENOUS DIRECTED PRN FAMILY HISTORY Problem Relation Age of Onset Cervical Cancer Mother other (breast cyst [Other]) Mother Hyperlipidemia Father Hypertension Father No Known Problems Brother ADD/ADHD Brother Stroke Maternal Grandmother No Known Problems Maternal Grandfather Hypertension Paternal Grandmother Hyperlipidemia Paternal Grandmother Skin Cancer Paternal Grandmother Hypertension Paternal Grandfather Heart Attack Paternal Grandfather Diabetes Paternal Grandfather Hyperlipidemia Paternal Grandfather COPD Paternal Grandfather ADD/ADHD Son No Known Problems Half-sister No Known Problems Half-sister Social History Tobacco Use Smoking status: Every Day Packs/day: 0.50 Years: 15.00 Pack years: 7.50 Types: Cigarettes Smokeless tobacco: Never Vaping Use Vaping Use: Never used Substance Use Topics Alcohol use: Yes Alcohol/week: 1.0 standard drink Types: 1 Glasses of Wine (5oz) per week Comment: Social Drug use: No EXAM: BP 144/92 Pulse 105 Resp 18 Wt 81.2 kg (179 lb) LMP 08/04/2016 SpO2 98% BMI 31.71 kg/m PHYSICAL EXAM: General Appearance: Well appearing, alert, in no acute distress, well-hydrated, well nourished.. Skin: Skin color, texture, turgor normal, no suspicious rashes or lesions. Head: Normocephalic, no masses, lesions, tenderness or abnormalities. Eyes: Anicteric sclera. Extraocular movements are intact. . Lungs: Lungs clear to auscultation. No wheezing, rhonchi, rales.. Heart: RRR without murmur, gallop, or rubs. No ectopy. Abdomen: Abdomen soft. Bowel sounds normal. No masses, organomegaly, Positive findings: tenderness mild LLQ. No rebound or guarding. Extremities: No deformities, edema, skin discoloration, clubbing or cyanosis. Good capillary refill. . Neurologic: Gait normal. ASSESSMENT/PLAN: 1. LLQ pain - ICD9: 789.04, ICD10: R10.32 Continues with left lower quadrant pain. Will refer to our general surgery. Eval for hernia and or need for colonoscopy to rule out GI source of pain. Patient agreement to plan - CONSULT TO GENERAL SURGERY Discussed treatment plan and patient voices understanding. Patient's questions answered appropriately. Medications and potential side effects were discussed and patient voices understanding. Return to the office as scheduled or as needed for worsening/no improvement. Radha Garduno APRN.FRANCHISE DEVELOPMENT MANAGER Return to the office as scheduled or as needed for worsening/no improvement. This note was partially generated using WeVideo[employer]It voice recognition system. Note was reviewed for accuracy. There may be minor misspellings or grammar miscues with [employer]Video[employer]It voice recognition. documented [facility]11-[facility]22 Hospital Discharge instructions Patient Education 10/01/2022 13:27:05 Ankle Sprain (Adult) Ankle Sprain (Adult) An ankle sprain is a stretching or tearing of the ligaments that hold the ankle joint together. There are no broken bones. An ankle sprain is a common injury for both children and adults. It happens when the ankle turns, twists, or rolls in an awkward way. This can be caused by a sports injury. Or it can happen from doing something as simple as stepping on an uneven surface. Ligaments are made of tough connective tissue. Normally, ligaments stretch a certain amount and then go back to their normal place. A sprain happens when a ligament is forced to stretch more than thenormal amount. A severe sprain can actually tear the ligaments. If you have a severe sprain, you may have felt or heard something like a pop when you were injured. Ankle sprains are given a grade depending on whether they are mild, moderate, or severe: Grade 1 sprain. A mild sprain with minor stretching and damage to the ligament. Grade 2 sprain. A moderate sprain where the ligament is partly torn. Grade 3 sprain. The most severe kind of sprain. The ligament is completely torn. Most sprains take about 4 to 6 weeks to heal. A severe sprain can take several months to recover. Your healthcare provider may order X-rays to be sure you don t have a fracture, or broken bone. The injured area will feel sore. Swelling and pain may make it hard to walk. You may need crutches if walking is painful. Or your provider may have you use a cast boot or air splint. This will dependon the grade of ankle sprain that you have. Home care For a Grade 1 sprain, use RICE (rest, ice, compression, and elevation): Rest your ankle. Don t walk on it. Ice should be used right away to help control swelling. Place an ice pack over the injured area for20 minutes. Do this every 3 to 6 hours for the first 24 to 48 hours. Keep using ice packs to ease pain and swelling as needed. To make an ice pack, put ice cubes in a plastic bag that seals at the top. Wrap the bag in a clean, thin towel or cloth. Never put ice or an ice pack directly on the skin. The ice pack can be put right on the cast, bandage, or splint. As the ice melts, be careful that thecast, bandage, or splint doesn t get wet. If you have a boot, open it to apply an ice pack, unless told otherwise by your provider. Compression devices help to control swelling. They also keep the ankle from moving and support yourinjured ankle. These devices include dressings, bandages, and wraps. Elevate or raise your ankle above the level of your heart when sitting or lying down. This is very important for the first 48 hours. Follow the RICE guidelines for a Grade 2 sprain. This type of sprain will take longer to heal. Yourprovider may have you wear a splint, cast, or brace to keep your ankle from moving. If you have a Grade 3 sprain, you are at risk for long-term ankle instability. In rare cases, surgery may be needed. Your provider may have you wear a short leg cast or a walking boot for 2 to 3 weeks. After 48 hours, it may be helpful to apply heat for 20 minutes several times a day. You can do thiswith a heating pad or warm compress. Or you may want to go back and forth between using ice and heat. Never apply heat directly to the skin. Always wrap the heating pad or warm compress in a clean, thin towel or cloth. You may use pprd-ipo-vaofjns pain medicine (NSAIDS or nonsteroidal anti- inflammatory drugs) to control pain, unless another pain medicine was prescribed. Talk with your provider before using these medicines if you have chronic liver or kidney disease, or have ever had a stomach ulcer or gastrointestinal bleeding. Follow any rehabilitation exercises your provider gives you. These can help you be more flexible and improve your balance and coordination. This is helpful in preventing long-term ankle problems. Prevention To help prevent ankle sprains, it s important to have good strength, balance, and flexibility. Be sure to: Always warm up before you exercise or do something very active Be careful when walking or running on uneven or cracked surfaces Wear shoes that are in good condition and fit well Listen to your body s signals to slow down when you are in pain or tired Follow-up care Any X-rays you had today don t show any broken bones, breaks, or fractures. Sometimes fractures dont show up on the first X-ray. Bruises and sprains can sometimes hurt as much as a fracture. These injuries can take time to heal completely. If your symptoms don t get better or they get worse, talk with your healthcare provider. You may need a repeat X-ray. Follow up with your healthcare provider, or as advised. Check for any warning signs listed below. When to seek medical advice Call your healthcare provider right away if any of these occur: Fever of 100.4 F (38 C) or higher, or as directed by your healthcare provider Chills The injury doesn t seem to be healing The swelling comes back The cast or splint has a bad smell The plaster cast or splint gets wet or soft The fiberglass cast or splint gets wet and does not dry for 24 hours The pain or swelling increases, or redness appears Your toes become cold, blue, numb, or tingly The skin is discolored (looks blue, purple, or newton), has blisters, or is irritated You re-injure your ankle [phone] [employer]). [address] [place] [address], [place] [address]. All rights reserved. This information is not intended as a substitute for professional medical care. Always follow yourhealthcare professional's instructions. Follow Up Care 10/01/2022 12:35:56 With:SHRAVAN PIKE MD Address: [address] [place] [address] [address] [facility] [place] [place] [address]- [phone] When:5 to 7 days With:Go to emergency room if symptoms worsen Address:Unknown When:2-4 days With:HOLLIE BALLARD MD Address: [address] [address] [phone] When:2-4 days [facility] 11-30-2022 Note Discharge Instructions Thank you for allowing [facility] to assist you with your healthcare needs. The following is importantdischarge information regarding your hospital visit. Diagnosis from Today's Visit Sprain of left ankle Ankle pain-swelling What to Do Next Instructions from Your Care Team Discharge Home Equipment - Ordered -- Ankle Splint, 99 month(s), 10/01/22 13:26:00 EST Discharge Home Equipment - Ordered -- Crutches, 99 month(s), 10/01/22 13:26:00 EST Post Acute Orders No qualifying data available. You Need to Schedule the Following Appointments Follow Up with SHRAVAN PIKE MD When Within 5 to 7 days Where: [address] [facility] [address] [facility] [place] [place] [address] [phone] Follow Up with Go to emergency room if symptoms worsen When Within 2-4 days Follow Up with HOLLIE BALLARD MD When Within 2-4 days Where: [address] [address] [phone] Allergies NKA Medications Please ask your primary doctor or pharmacist before taking any other medication not listed, including over the counter drugs, herbal medications, vitamins and or supplements as they may interact withyour home medications. What When Instructions Last Dose Unchanged amitriptyline (amitriptyline 10 mg oral tablet) Unchanged atorvastatin (atorvastatin 20 mg oral tablet) Unchanged cholecalciferol (Vitamin D3 125 mcg (5000 intl units) oral capsule) Unchanged estradiol (estradiol 2 mg oral tablet) Unchanged rizatriptan (rizatriptan 10 mg oral tablet, disintegrating) Please take this list to your next doctor s visit. Bring all medications you take, including over the counter medications, herbals and other supplements with you to your doctor s visit. Patients and families are reminded to discard old lists and to update any records with all medication providers or retail pharmacies. Education Materials Ankle Sprain (Adult) An ankle sprain is a stretching or tearing of the ligaments that hold the ankle joint together. There are no broken bones. An ankle sprain is a common injury for both children and adults. It happens when the ankle turns, twists, or rolls in an awkward way. This can be caused by a sports injury. Or it can happen from doing something as simple as stepping on an uneven surface. Ligaments are made of tough connective tissue. Normally, ligaments stretch a certain amount and then go back to their normal place. A sprain happens when a ligament is forced to stretch more than thenormal amount. A severe sprain can actually tear the ligaments. If you have a severe sprain, you may have felt or heard something like a pop when you were injured. Ankle sprains are given a grade depending on whether they are mild, moderate, or severe: Grade 1 sprain. A mild sprain with minor stretching and damage to the ligament. Grade 2 sprain. A moderate sprain where the ligament is partly torn. Grade 3 sprain. The most severe kind of sprain. The ligament is completely torn. Most sprains take about 4 to 6 weeks to heal. A severe sprain can take several months to recover. Your healthcare provider may order X-rays to be sure you don t have a fracture, or broken bone. The injured area will feel sore. Swelling and pain may make it hard to walk. You may need crutches if walking is painful. Or your provider may have you use a cast boot or air splint. This will dependon the grade of ankle sprain that you have. Home care For a Grade 1 sprain, use RICE (rest, ice, compression, and elevation): Rest your ankle. Don t walk on it. Ice should be used right away to help control swelling. Place an ice pack over the injured area for20 minutes. Do this every 3 to 6 hours for the first 24 to 48 hours. Keep using ice packs to ease pain and swelling as needed. To make an ice pack, put ice cubes in a plastic bag that seals at the top. Wrap the bag in a clean, thin towel or cloth. Never put ice or an ice pack directly on the skin. The ice pack can be put right on the cast, bandage, or splint. As the ice melts, be careful that thecast, bandage, or splint doesn t get wet. If you have a boot, open it to apply an ice pack, unless told otherwise by your provider. Compression devices help to control swelling. They also keep the ankle from moving and support yourinjured ankle. These devices include dressings, bandages, and wraps. Elevate or raise your ankle above the level of your heart when sitting or lying down. This is very important for the first 48 hours. Follow the RICE guidelines for a Grade 2 sprain. This type of sprain will take longer to heal. Yourprovider may have you wear a splint, cast, or brace to keep your ankle from moving. If you have a Grade 3 sprain, you are at risk for long-term ankle instability. In rare cases, surgery may be needed. Your provider may have you wear a short leg cast or a walking boot for 2 to 3 weeks. After 48 hours, it may be helpful to apply heat for 20 minutes several times a day. You can do thiswith a heating pad or warm compress. Or you may want to go back and forth between using ice and heat. Never apply heat directly to the skin. Always wrap the heating pad or warm compress in a clean, thin towel or cloth. You may use srvr-gzf-ewnncsg pain medicine (NSAIDS or nonsteroidal anti- inflammatory drugs) to control pain, unless another pain medicine was prescribed. Talk with your provider before using these medicines if you have chronic liver or kidney disease, or have ever had a stomach ulcer or gastrointestinal bleeding. Follow any rehabilitation exercises your provider gives you. These can help you be more flexible and improve your balance and coordination. This is helpful in preventing long-term ankle problems. Prevention To help prevent ankle sprains, it s important to have good strength, balance, and flexibility. Be sure to: Always warm up before you exercise or do something very active Be careful when walking or running on uneven or cracked surfaces Wear shoes that are in good condition and fit well Listen to your body s signals to slow down when you are in pain or tired Follow-up care Any X-rays you had today don t show any broken bones, breaks, or fractures. Sometimes fractures dont show up on the first X-ray. Bruises and sprains can sometimes hurt as much as a fracture. These injuries can take time to heal completely. If your symptoms don t get better or they get worse, talk with your healthcare provider. You may need a repeat X-ray. Follow up with your healthcare provider, or as advised. Check for any warning signs listed below. When to seek medical advice Call your healthcare provider right away if any of these occur: Fever of 100.4 F (38 C) or higher, or as directed by your healthcare provider Chills The injury doesn t seem to be healing The swelling comes back The cast or splint has a bad smell The plaster cast or splint gets wet or soft The fiberglass cast or splint gets wet and does not dry for 24 hours The pain or swelling increases, or redness appears Your toes become cold, blue, numb, or tingly The skin is discolored (looks blue, purple, or newton), has blisters, or is irritated You re-injure your ankle [id number] [employer] ([employer] [address] [place] [address]. All rights reserved. This information is not intended as a substitute for professional medical care. Always follow yourhealthcare professional's instructions. Additional Information VACCINATE! IT SAVES LIVES! Members of the community who have not yet received the COVID-19 vaccine and would like to receive it can visit one of [facility] vaccine clinics. There are many vaccine clinic locations within the [facility]. For locations and available times, please visit [email or web address]. It is important to note that some COVID mobile vaccine clinics are held outdoors and may be canceled in rainy orstormy conditions. To learn more about pediatric vaccinations (ages 5-11), we invite you to visit the [facility] webpage. [email or web address] learn more about the COVID-19 vaccine, we invite you to visit the [facility] website for a list of frequently asked questions. [email or web address] [facility] [employer] Patient Portal Access Instructions: Stay connected with your healthcare team and access your personal medical information anytime with the [employer] Patient Portal. If you would like a full copy of your medical records please contact the [facility] Medical Records Department Thursday through Thursday between 8a.m. and 4:30p.m. Please follow the directions below to access the portal: 1.Access the email account you provided upon registration to the [facility].2.Look for an invitation email from [facility].3.Open the email and access the invitation link: Accept Invitation to [facility]4.Fill in the required jamison to create your account. Sign into [email or web address] with your username and password that you created in the above steps to stay up to date. You can then view a summary of results, a summary of your visits, and the ability to download your summaries to your computer or send the information securely to a physician. Remember that your healthcare information is confidential, so carefully consider who you will allow to register on the [facility] [employer] Patient Portal for access to your information. You can also access the [employer] Patient Portal on the [employer] lulu. Simply click on Health Records under [employer] and then click on the [employer] logo. HOW TO SAFELY DISPOSE OF PRESCRIPTION MEDICATIONS Please use one of the following methods to safely dispose of your unused medications. 1.Use a drug disposal kit: the drug disposal pouch allows you to safely discard your old and unuseddrugs. Ask your nurse to give you one when you are discharged.2.Visit a local take-back location: Many local pharmacies and police departments have programs that collect old and unwanted prescriptiondrugs. Call your local pharmacy or go to http://bit.Datometry/0K6Hy9w to find one close to you.3.Make use of household items: Use cat litter or old coffee grounds to dispose medications if other options arenot available. Mix your drugs with these household products, seal them in an airtight container andthrow it into the garbage. Call [facility]: [phone] to be sure your drugs can be disposed of in this way. Some medicines may require a different approach.4.Never flush your medications down the toilet. IF YOU HAVE BEEN PRESCRIBED AN OPIOIDS FOR PAIN If you have been prescribed an opioid (such as hydrocodone, oxycodone or morphine), it is critical to understand the possible side effects and risks of opioid pain medications. Even when taken as directed, opioids can have several side effects including: Tolerance, meaning you might need to take more of a medication for the same pain relief. Nausea, vomiting and/or constipation. Sleepiness, dizziness, dry mouth, confusion, depression or itching. Physical dependence, meaning you have withdrawal symptoms when a medication is stopped ? this can develop within a few days. KNOW YOUR RESPONSIBILITIES It is important to know exactly how much and how often to take the opioid pain medications you are prescribed. Never take opioids in higher amounts or more often than prescribed. Do not combine opioids with alcohol or other drugs that cause drowsiness, such as benzodiazepines, also known as benzos,including diazepam and alprazolam, muscle relaxants or sleep aids. Never sell or share prescriptionopioids. This is illegal. Store opioids in a secure place and out of reach of others (including children, family, friends and visitors). The last page(s) of this document has been signed and retained as a CHART COPY Signatures Patient Education Materials Ankle Sprain (Adult) Medication Leaflets My discharge plan and instructions have been reviewed and explained to me and ITAVON JESSICA M understand my current condition and have read and understand these discharge instructions. I have received a written copy of the plan/instructions. If I have questions, I am aware that I should contactmy doctor. 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 HISTORY: ORDERING SYSTEM PROVIDED HISTORY: Reason for Exam: ankle pain FINDINGS: Prominent calcaneal enthesophyte noted. There is no fracture seen in the foot or ankle. No traumatic malalignment. IMPRESSION: Prominent calcaneal enthesopathy Interpreted by: Travon Mc MD Preliminary Report By: Travon Mc MD Electronically signed By Travon Mc MD Dictated Date: 10/01/2022 1:08:01 PM Prelim Date: 10/01/2022 1:08:55 PM Sign Date: 10/01/2022 1:08:55 PM Ordering Provider: [facility]11-30-2022 Note ORIGINAL EXAMINATION: 3 x-ray views of the left ankle and 3 x-ray views of the left foot 10/01/2022 1:03 pm COMPARISON: None. HISTORY: ORDERING SYSTEM PROVIDED HISTORY: Reason for Exam: ankle pain FINDINGS: Prominent calcaneal enthesophyte noted. There is no fracture seen in the foot or ankle. No traumatic malalignment. IMPRESSION: Prominent calcaneal enthesopathy Interpreted by: Travon Mc MD Preliminary Report By: Travon Mc MD Electronically signed By Travon Mc MD Dictated Date: 10/01/2022 1:08:01 PM Prelim Date: 10/01/2022 1:08:55 PM Sign Date: 10/01/2022 1:08:55 PM Ordering Provider: [facility]10-25-2022 Hospital Discharge instructions Patient Education 08/26/2022 09:42:09 Abdominal Pain, Unknown Cause, (Female) Unknown Causes of Abdominal Pain (Female) The exact cause of your belly (abdominal) pain is not clear. This does not mean that this is something to worry about. Everyone likes to know the exact cause of the problem. But sometimes with belly pain, there is no clear-cut cause, and this could be a good thing. The good news is that your symptoms can be treated, and you will feel better. Your condition does not seem serious now. But sometimes the signs of a serious problem may take more time to appear. For this reason, it is important for you to watch for any new symptoms, problems, or worsening of your condition. Over the next few days, the abdominal pain may come and go. Or it may be constant. Other common symptoms can include nausea and vomiting. Sometimes it can be difficult to tell if you feel nauseous. You may just feel bad and not connect that feeling to nausea. Constipation, diarrhea, and a fever maygo along with the pain. The pain may continue even if treated correctly over the following days. Depending on how things go, sometimes the cause can become clear and may need more or different treatment. Additional evaluations, medicines, or tests may also be needed. Home care Your healthcare provider may prescribe medicine for pain, symptoms, or an infection. Follow the healthcare provider's instructions for taking these medicines. General care Rest as much as you can until your next exam. No strenuous activities. Try to find positions that ease discomfort. A small pillow placed on the abdomen may help relieve pain. Something warm on your abdomen (such as a heating pad) may help, but be careful not to burn yourself. Diet Don t force yourself to eat, especially if having cramps, vomiting, or diarrhea. Water is important so you don't get dehydrated. Soup may also be good. Sports drinks may also help,especially if they are not too acidic. Don't drink sugary drinks as this can make things worse. Take liquids in small amounts. Don t guzzle them. Caffeine sometimes makes the pain and cramping worse. Don t take dairy products if you have vomiting or diarrhea. Don't eat large amounts at a time. Wait a few minutes between bites. Eat a diet low in fiber (called a low-residue diet). Foods allowed include refined breads, white rice, fruit and vegetable juices without pulp, tender meats. These foods will pass more easily throughthe intestine. Don t have whole-grain foods, whole fruits and vegetables, meats, seeds and nuts, fried or fatty foods, dairy, alcohol and spicy foods until your symptoms go away. Follow-up care Follow up with your healthcare provider, or as advised, if your pain does not begin to improve in the next 24 hours. Call 911 Call 911 if any of these occur: Trouble breathing Confusion Fainting or loss of consciousness Rapid heart rate Seizure When to seek medical advice Call your healthcare provider right away if any of these occur: Pain gets worse or moves to the right lower abdomen New or worsening vomiting or diarrhea Swelling of the abdomen Unable to pass stool for more than 3 days Fever of 100.4 F (38 C) or higher, or as directed by your healthcare provider. Blood in vomit or bowel movements (dark red or black color) Yellow color of eyes and skin (jaundice) Weakness, dizziness Chest, arm, back, neck, or jaw pain Unexpected vaginal bleeding or missed period Can't keep down liquids or water and you are getting dehydrated 6544-6803 [employer] [address] [place] [address]. All rights reserved. This information is not intended as a substitute for professional medical care. Always follow yourhealthcare professional's instructions. 08/26/2022 09:42:08 Flank Pain, Uncertain Cause Flank Pain, Uncertain Cause The flank is the area between your upper abdomen and your back. Pain there is often caused by a problem with your kidneys. It might be a kidney infection or a kidney stone. Other causes of flank paininclude spinal arthritis, a pinched nerve from a back injury, or a back muscle strain or spasm. The cause of your flank pain is not certain. You may need other tests. Home care Follow these tips when caring for yourself at home: You may use acetaminophen or ibuprofen to control pain, unless your health care provider prescribedanother medicine. If you have chronic liver or kidney disease, talk with your provider before taking these medicines. Also talk with your provider first if you ve ever had a stomach ulcer or GI bleeding. If the pain is coming from your muscles, you may get relief with ice or heat. During the first 2 days after the injury, put an ice pack on the painful area for 20 minutes every 2 to 4 hours. This will reduce swelling and pain. A hot shower, hot bath, or heating pad works well for a muscle spasm. You can start with ice, then switch to heat after 2 days. You might find that alternating ice and heatworks well. Use the method that feels the best to you. Follow-up care Follow up with your healthcare provider if your symptoms don t get better over the next few days. When to seek medical advice Call your healthcare provider right away if any of these happen: Repeated vomiting Fever of 100.4 F (38 C) or higher, or as directed by your health care provider Flank pain that gets worse Pain that spreads to the front of your belly (abdomen) Dizziness, weakness, or fainting Blood in your urine Burning feeling when you urinate or the need to urinate often Pain in one of your legs that gets worse Numbness or weakness in a leg 1302-3800 [employer] ([employer] [address] [place] [address]. All rights reserved. This information is not intended as a substitute for professional medical care. Always follow yourhealthcare professional's instructions. Follow Up Care 08/26/2022 08:31:31 With:HOLLIE BALLARD MD Address: [facility] [address] [place] [address]- [phone] When:2-4 days [facility] 10-25-2022 Note Discharge Instructions Thank you for allowing [facility] to assist you with your healthcare needs. The following is importantdischarge information regarding your hospital visit. Diagnosis from Today's Visit Left flank pain Pelvic girdle pain Hip pain-swelling What to Do Next Instructions from Your Care Team No qualifying data available. Post Acute Orders No qualifying data available. You Need to Schedule the Following Appointments Follow Up with HOLLIE BALLARD MD When Within 2-4 days Where: [facility] [address] [place] [address]- [phone] Allergies NK[facility] Medications Please ask your primary doctor or pharmacist before taking any other medication not listed, including over the counter drugs, herbal medications, vitamins and or supplements as they may interact withyour home medications. What How Much When Why Instructions Last Dose New traMADol (Ultram 50 mg oral tablet) 1 tab(s) by mouth Every 12 hours Left flank pain Pelvic girdle pain Duration: 5 Days Printed Prescription Unchanged amitriptyline (amitriptyline 10 mg oral tablet) Unchanged atorvastatin (atorvastatin 20 mg oral tablet) Unchanged cholecalciferol (Vitamin D3 125 mcg (5000 intl units) oral capsule) Unchanged estradiol (estradiol 2 mg oral tablet) Unchanged rizatriptan (rizatriptan 10 mg oral tablet, disintegrating) Please take this list to your next doctor s visit. Bring all medications you take, including over the counter medications, herbals and other supplements with you to your doctor s visit. Patients and families are reminded to discard old lists and to update any records with all medication providers or retail pharmacies. Medication Leaflets tramadol (TRAM a dol) Jerome, Sergeyolo, Ultram, Ultram ER What is the most important information I should know about tramadol? MISUSE OF THIS MEDICINE CAN CAUSE ADDICTION, OVERDOSE, OR . Keep this medicine where others cannot get to it. Tramadol should not be given to a child younger than 12 years old, or anyone younger than 18 years old who recently had surgery to remove the tonsils or adenoids. Ultram ER should not be given to anyone younger than 18 years old. Taking tramadol during may cause life-threatening withdrawal symptoms in the . Fatal side effects may occur if you use also use alcohol or other drugs that cause drowsiness or slow breathing. What is tramadol? Tramadol is an pain medicine similar to an opioid. Tramadol is used to treat moderate to severe pain. The extended-release form of tramadol is for qpzmes-apl-lcmke treatment of pain. This form of tramadol is not for use on an as-needed basis for pain. Tramadol may also be used for purposes not listed in this medication guide. What should I discuss with my healthcare provider before taking tramadol? You should not take tramadol if you are allergic to it, or if you have: severe asthma or breathing problems; a stomach or bowel obstruction (including paralytic ileus); if you have recently used alcohol, sedatives, tranquilizers, or narcotic medications; or if you have used an MAO inhibitor in the past 14 days (such as isocarboxazid, linezolid, methylene blue injection, phenelzine, or tranylcypromine). Tramadol should not be given to a child younger than 12 years old. Ultram ER should not be given toanyone younger than 18 years old. Do not give tramadol to anyone younger than 18 years old who recently had surgery to remove the tonsils or adenoids. Seizures have occurred in some people taking tramadol. Your seizure risk may be higher if you have ever had: a head injury, epilepsy or other seizure disorder; drug or alcohol addiction; or a metabolic disorder. Tell your doctor if you have ever had: breathing problems, sleep apnea; liver or kidney disease; urination problems; problems with your gallbladder, pancreas, or thyroid; a stomach disorder; or mental illness, or suicide attempt. If you use tramadol during , your baby could be born with life- threatening withdrawal symptoms, and may need medical treatment for several weeks. Ask a doctor before using tramadol if you are . Tell your doctor if you notice severe drowsiness or slow breathing in the nursing baby. How should I take tramadol? Follow the directions on your prescription label and read all medication guides. Never use tramadolin larger amounts, or for longer than prescribed. Tell your doctor if you feel an increased urge totake more of this medicine. Never share tramadol with another person, especially someone with a history of drug addiction. MISUSE CAN CAUSE ADDICTION, OVERDOSE, OR . Keep the medicine where others cannot get to it. Sellingor giving away this medicine is against the law. Stop taking all other opioid medications when you start taking tramadol. Tramadol can be taken with or without food, but take it the same way each time. Swallow the capsule or tablet whole to avoid exposure to a potentially fatal overdose. Do not crush, chew, break, open, or dissolve. Measure liquid medicine with the supplied syringe or a dose-measuring device (not a kitchen spoon). Never crush or break a tramadol pill to inhale the powder or mix it into a liquid to inject the drug into your vein. This practice has resulted in . You may have withdrawal symptoms if you stop using tramadol suddenly. Ask your doctor before stopping the medicine. Store at room temperature away from moisture and heat. Keep track of your medicine. You should be aware if anyone is using it improperly or without a prescription. Do not keep leftover tramadol. Just one dose can cause in someone using it accidentally or improperly. Ask your pharmacist where to locate a drug take- back disposal program. If there is no take-back program, mix the leftover medicine with cat litter or coffee grounds in a sealed plastic bag throw the bag in the trash. What happens if I miss a dose? Since tramadol is used for pain, you are not likely to miss a dose. Skip any missed dose if it is almost time for your next dose. Do not use two doses at one time. What happens if I overdose? Seek emergency medical attention or call the Poison Help line at . An overdose can befatal, especially in a child or other person using the medicine without a prescription. Overdose symptoms may include severe drowsiness, pinpoint pupils, slow breathing, or no breathing. Your doctor may recommend you get naloxone (a medicine to reverse an opioid overdose) and keep it with you at all times. A person caring for you can give the naloxone if you stop breathing or don't wake up. Your caregiver must still get emergency medical help and may need to perform CPR (cardiopulmonary resuscitation) on you while waiting for help to arrive. Anyone can buy naloxone from a pharmacy or local health department. Make sure any person caring foryou knows where you keep naloxone and how to use it. What should I avoid while taking tramadol? Do not drink alcohol. Dangerous side effects or could occur. Avoid driving or hazardous activity until you know how this medicine will affect you. Dizziness or drowsiness can cause falls, accidents, or severe injuries. What are the possible side effects of tramadol? Get emergency medical help if you have signs of an allergic reaction (hives, difficult breathing, swelling in your face or throat) or a severe skin reaction (fever, sore throat, burning in your eyes,skin pain, red or purple skin rash that spreads and causes blistering and peeling). Tramadol can slow or stop your breathing, and may occur. A person caring for you should give naloxone and/or seek emergency medical attention if you have slow breathing with long pauses, blue colored lips, or if you are hard to wake up. Call your doctor at once if you have: noisy breathing, sighing, shallow breathing, breathing that stops during sleep; a slow heart rate or weak pulse; a light-headed feeling, like you might pass out; seizure (convulsions); or low cortisol levels--nausea, vomiting, loss of appetite, dizziness, worsening tiredness or weakness. Seek medical attention right away if you have symptoms of serotonin syndrome, such as: agitation, hallucinations, fever, sweating, shivering, fast heart rate, muscle stiffness, twitching, loss of coordination, nausea, vomiting, or diarrhea. Serious breathing problems may be more likely in older adults and people who are debilitated or have wasting syndrome or chronic breathing disorders. Common side effects may include: constipation, nausea, vomiting, stomach pain; dizziness, drowsiness, tiredness; headache; or itching. This is not a complete list of side effects and others may occur. Call your doctor for medical advice about side effects. You may report side effects to FDA at 0-634-YCW-5577. What other drugs will affect tramadol? You may have breathing problems or withdrawal symptoms if you start or stop taking certain other medicines. Tell your doctor if you also use an antibiotic, antifungal medication, heart or blood pressure medication, seizure medication, or medicine to treat HIV or hepatitis C. Many other drugs can be dangerous when used with tramadol. Tell your doctor if you also use: medicine for allergies, asthma, blood pressure, motion sickness, irritable bowel, or overactive bladder; other opioid medicines; a benzodiazepine sedative like Valium, Klonopin, or Xanax; sleep medicine, muscle relaxers, or other drugs that make you drowsy; or drugs that affect serotonin, such as antidepressants, stimulants, or medicine for migraines or Parkinson's disease. This list is not complete. Other drugs may affect tramadol, including prescription and otmv-cty-wryprsz medicines, vitamins, and herbal products. Not all possible interactions are listed here. Many other drugs can be dangerous when used with tramadol. Tell your doctor if you also use: medicine for allergies, asthma, blood pressure, motion sickness, irritable bowel, or overactive bladder; other opioid medicines; a benzodiazepine sedative like Valium, Klonopin, or Xanax; sleep medicine, muscle relaxers, or other drugs that make you drowsy; drugs that affect serotonin, such as antidepressants, stimulants, or medicine for migraines or Parkinson's disease. drugs that affect serotonin levels in your body--a stimulant, or medicine for depression, Parkinson's disease, migraine headaches, serious infections, or nausea and vomiting. This list is not complete. Many other drugs may affect tramadol. This includes prescription and eflr-nop-dxgkrzh medicines, vitamins, and herbal products. Not all possible drug interactions are listed here. Where can I get more information? Your doctor or pharmacist can provide more information about tramadol. Remember, keep this and all other medicines out of the reach of children, never share your medicines with others, and use this medication only for the indication prescribed. Every effort has been made to ensure that the information provided by [employer] is accurate, up-to-date, and complete, but no guarantee is made to that effect. Drug information contained herein may be time sensitive. [employer] information has been compiled for use by healthcare practitioners and consumers in the [place] and therefore [employer] does not warrant that uses outside of the [place] are appropriate, unless specifically indicated otherwise. [employer] drug information does not endorse drugs, diagnose patients or recommend therapy. [employer] drug information isan informational resource designed to assist licensed healthcare practitioners in caring for their p atients and/or to serve consumers viewing this service as a supplement to, and not a substitute for, the expertise, skill, knowledge and judgment of healthcare practitioners. The absence of a warningfor a given drug or drug combination in no way should be construed to indicate that the drug or drug combination is safe, effective or appropriate for any given patient. [employer] does not assume any responsibility for any aspect of healthcare administered with the aid of information [employer] provides. The information contained herein is not intended to cover all possible uses, directions, precautions, warnings, drug interactions, allergic reactions, or adverse effects. If you have questions about the drugs you are taking, check with your doctor, nurse or pharmacist. Copyright 5729-8613 [employer] Version: 22.02. Revision Date: 04/16/2021. Education Materials Unknown Causes of Abdominal Pain (Female) The exact cause of your belly (abdominal) pain is not clear. This does not mean that this is something to worry about. Everyone likes to know the exact cause of the problem. But sometimes with belly pain, there is no clear-cut cause, and this could be a good thing. The good news is that your symptoms can be treated, and you will feel better. Your condition does not seem serious now. But sometimes the signs of a serious problem may take more time to appear. For this reason, it is important for you to watch for any new symptoms, problems, or worsening of your condition. Over the next few days, the abdominal pain may come and go. Or it may be constant. Other common symptoms can include nausea and vomiting. Sometimes it can be difficult to tell if you feel nauseous. You may just feel bad and not connect that feeling to nausea. Constipation, diarrhea, and a fever maygo along with the pain. The pain may continue even if treated correctly over the following days. Depending on how things go, sometimes the cause can become clear and may need more or different treatment. Additional evaluations, medicines, or tests may also be needed. Home care Your healthcare provider may prescribe medicine for pain, symptoms, or an infection. Follow the healthcare provider's instructions for taking these medicines. General care Rest as much as you can until your next exam. No strenuous activities. Try to find positions that ease discomfort. A small pillow placed on the abdomen may help relieve pain. Something warm on your abdomen (such as a heating pad) may help, but be careful not to burn yourself. Diet Don t force yourself to eat, especially if having cramps, vomiting, or diarrhea. Water is important so you don't get dehydrated. Soup may also be good. Sports drinks may also help,especially if they are not too acidic. Don't drink sugary drinks as this can make things worse. Take liquids in small amounts. Don t guzzle them. Caffeine sometimes makes the pain and cramping worse. Don t take dairy products if you have vomiting or diarrhea. Don't eat large amounts at a time. Wait a few minutes between bites. Eat a diet low in fiber (called a low-residue diet). Foods allowed include refined breads, white rice, fruit and vegetable juices without pulp, tender meats. These foods will pass more easily throughthe intestine. Don t have whole-grain foods, whole fruits and vegetables, meats, seeds and nuts, fried or fatty foods, dairy, alcohol and spicy foods until your symptoms go away. Follow-up care Follow up with your healthcare provider, or as advised, if your pain does not begin to improve in the next 24 hours. Call 911 Call 911 if any of these occur: Trouble breathing Confusion Fainting or loss of consciousness Rapid heart rate Seizure When to seek medical advice Call your healthcare provider right away if any of these occur: Pain gets worse or moves to the right lower abdomen New or worsening vomiting or diarrhea Swelling of the abdomen Unable to pass stool for more than 3 days Fever of 100.4 F (38 C) or higher, or as directed by your healthcare provider. Blood in vomit or bowel movements (dark red or black color) Yellow color of eyes and skin (jaundice) Weakness, dizziness Chest, arm, back, neck, or jaw pain Unexpected vaginal bleeding or missed period Can't keep down liquids or water and you are getting dehydrated [employer] ([employer]). [address] [place] [address]. All rights reserved. This information is not intended as a substitute for professional medical care. Always follow yourhealthcare professional's instructions. Flank Pain, Uncertain Cause The flank is the area between your upper abdomen and your back. Pain there is often caused by a problem with your kidneys. It might be a kidney infection or a kidney stone. Other causes of flank paininclude spinal arthritis, a pinched nerve from a back injury, or a back muscle strain or spasm. The cause of your flank pain is not certain. You may need other tests. Home care Follow these tips when caring for yourself at home: You may use acetaminophen or ibuprofen to control pain, unless your health care provider prescribedanother medicine. If you have chronic liver or kidney disease, talk with your provider before taking these medicines. Also talk with your provider first if you ve ever had a stomach ulcer or GI bleeding. If the pain is coming from your muscles, you may get relief with ice or heat. During the first 2 days after the injury, put an ice pack on the painful area for 20 minutes every 2 to 4 hours. This will reduce swelling and pain. A hot shower, hot bath, or heating pad works well for a muscle spasm. You can start with ice, then switch to heat after 2 days. You might find that alternating ice and heatworks well. Use the method that feels the best to you. Follow-up care Follow up with your healthcare provider if your symptoms don t get better over the next few days. When to seek medical advice Call your healthcare provider right away if any of these happen: Repeated vomiting Fever of 100.4 F (38 C) or higher, or as directed by your health care provider Flank pain that gets worse Pain that spreads to the front of your belly (abdomen) Dizziness, weakness, or fainting Blood in your urine Burning feeling when you urinate or the need to urinate often Pain in one of your legs that gets worse Numbness or weakness in a leg [employer] ([employer]). [address] [place], [place] [id number]. All rights reserved. This information is not intended as a substitute for professional medical care. Always follow yourhealthcare professional's instructions. Additional Information VACCINATE! IT SAVES LIVES! Members of the community who have not yet received the COVID-19 vaccine and would like to receive it can visit one of [facility] vaccine clinics. There are many vaccine clinic locations within the [facility]. For locations and available times, please visit [email or web address]. It is important to note that some COVID mobile vaccine clinics are held outdoors and may be canceled in rainy orstormy conditions. To learn more about pediatric vaccinations (ages 5-11), we invite you to visit the [facility] webpage. [email or web address] learn more about the COVID-19 vaccine, we invite you to visit the [employer] website for a list of frequently asked questions. [email or web address] [employer] Patient Portal Access Instructions: Stay connected with your healthcare team and access your personal medical information anytime with the [facility] Patient Portal. If you would like a full copy of your medical records please contact the [facility] Medical Records Department Thursday through Thursday between 8a.m. and 4:30p.m. Please follow the directions below to access the portal: 1.Access the email account you provided upon registration to the hospital.2.Look for an invitation email from [facility].3.Open the email and access the invitation link: Accept Invitation to [facility]4.Fill in the required jamison to create your account. Sign into [email or web address] with your username and password that you created in the above steps to stay up to date. You can then view a summary of results, a summary of your visits, and the ability to download your summaries to your computer or send the information securely to a physician. Remember that your healthcare information is confidential, so carefully consider who you will allow to register on the [facility] Patient Portal for access to your information. You can also access the [facility] Patient Portal on the [employer] lulu. Simply click on Health Records under Mobile Active [employer] and then click on the [facility] logo. HOW TO SAFELY DISPOSE OF PRESCRIPTION MEDICATIONS Please use one of the following methods to safely dispose of your unused medications. 1.Use a drug disposal kit: the drug disposal pouch allows you to safely discard your old and unuseddrugs. Ask your nurse to give you one when you are discharged.2.Visit a local take-back location: Many local pharmacies and police departments have programs that collect old and unwanted prescriptiondrugs. Call your local pharmacy or go to [email or web address] to find one close to you.3.Make use of household items: Use cat litter or old coffee grounds to dispose medications if other options arenot available. Mix your drugs with these household products, seal them in an airtight container andthrow it into the garbage. Call [facility]: [phone] to be sure your drugs can be disposed of in this way. Some medicines may require a different approach.4.Never flush your medications down the toilet. IF YOU HAVE BEEN PRESCRIBED AN OPIOIDS FOR PAIN If you have been prescribed an opioid (such as hydrocodone, oxycodone or morphine), it is critical to understand the possible side effects and risks of opioid pain medications. Even when taken as directed, opioids can have several side effects including: Tolerance, meaning you might need to take more of a medication for the same pain relief. Nausea, vomiting and/or constipation. Sleepiness, dizziness, dry mouth, confusion, depression or itching. Physical dependence, meaning you have withdrawal symptoms when a medication is stopped ? this can develop within a few days. KNOW YOUR RESPONSIBILITIES It is important to know exactly how much and how often to take the opioid pain medications you are prescribed. Never take opioids in higher amounts or more often than prescribed. Do not combine opioids with alcohol or other drugs that cause drowsiness, such as benzodiazepines, also known as benzos,including diazepam and alprazolam, muscle relaxants or sleep aids. Never sell or share prescriptionopioids. This is illegal. Store opioids in a secure place and out of reach of others (including children, family, friends and visitors). The last page(s) of this document has been signed and retained as a CHART COPY Signatures Patient Education Materials Abdominal Pain, Unknown Cause, (Female) Flank Pain, Uncertain Cause Medication Leaflets tramadol My discharge plan and instructions have been reviewed and explained to me and TAVON Caballero JESSICA M understand my current condition and have read and understand these discharge instructions. I have received a written copy of the plan/instructions. If I have questions, I am aware that I should contactmy doctor. 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 Multiplanar reformatted images are provided for review. Automated exposure control, iterative reconstruction, and/or weight based adjustment of the mA/kV was utilized to reduce the radiation dose to as low as reasonably achievable. COMPARISON: None HISTORY: ORDERING SYSTEM PROVIDED HISTORY: Reason for Exam: BILATERAL flank pain , left flank pain FINDINGS: Included lower thoracic images demonstrate no pleural or pericardial effusion. Non contrasted liver, spleen, adrenal glands, and pancreas are normal. Gallbladder is unremarkable. The kidneys appear symmetric in size without radiopaque calculus. No perinephric stranding. No hydronephrosis. Urinary bladder is mildly distended without wall thickening or perivesicular stranding. Distal esophagus and stomach are within normal limits. No small bowel wall thickening or dilatation. The appendix is normal. Colon is normal in course and caliber, without dilatation or wall thickening. Aorta and IVC are normal in caliber. No lymphadenopathy. Uterus appears surgically absent. No adnexal mass. Osseous structures appear intact no acute osseous abnormalities. IMPRESSION: No acute process within the abdomen or pelvis. No nephrolithiasis or evidence hydronephrosis. Interpreted by: Dina Taylor DO Preliminary Report By: Dina Taylor DO Electronically signed By Dina Taylor DO Dictated Date: 08/26/2022 9:07:45 AM Prelim Date: 08/26/2022 9:11:21 AM Sign Date: 08/26/2022 9:11:21 AM Ordering Provider: BETHANY PAZ [facility]10-25-2022 Note ORIGINAL EXAMINATION: CT OF THE ABDOMEN AND PELVIS WITHOUT XOICNELP60/25/2022 9:01 am TECHNIQUE: CT of the abdomen and pelvis was performed without the administration of intravenous contrast. Multiplanar reformatted images are provided for review. Automated exposure control, iterative reconstruction, and/or weight based adjustment of the mA/kV was utilized to reduce the radiation dose to as low as reasonably achievable. COMPARISON: None HISTORY: ORDERING SYSTEM PROVIDED HISTORY: Reason for Exam: BILATERAL flank pain , left flank pain FINDINGS: Included lower thoracic images demonstrate no pleural or pericardial effusion. Non contrasted liver, spleen, adrenal glands, and pancreas are normal. Gallbladder is unremarkable. The kidneys appear symmetric in size without radiopaque calculus. No perinephric stranding. No hydronephrosis. Urinary bladder is mildly distended without wall thickening or perivesicular stranding. Distal esophagus and stomach are within normal limits. No small bowel wall thickening or dilatation. The appendix is normal. Colon is normal in course and caliber, without dilatation or wall thickening. Aorta and IVC are normal in caliber. No lymphadenopathy. Uterus appears surgically absent. No adnexal mass. Osseous structures appear intact no acute osseous abnormalities. IMPRESSION: No acute process within the abdomen or pelvis. No nephrolithiasis or evidence hydronephrosis. Interpreted by: Dina Taylor DO Preliminary Report By: Dina Taylor DO Electronically signed By Dina Taylor DO Dictated Date: 08/26/2022 9:07:45 AM Prelim Date: 08/26/2022 9:11:21 AM Sign Date: 08/26/2022 9:11:21 AM [facility]ing [facility]* Patient Instructions* Sharon Ellison PA-C - 06/24/2022 4:46 PM EDT Rizatriptan Benzoate, Oral What are other names for this medicine? Type of medicine: antimigraine Generic and brand names: rizatriptan benzoate, oral; Maxalt; Maxalt-ARMORING MACHINE OPERATOR What is this medicine used for? This medicine is taken by mouth to relieve the pain of acute migraine headaches in adults. It will not prevent migraine headaches or reduce the number you may have. This medicine is not intended to treat other types of headaches. It may be used for other conditions as determined by your healthcare provider. What should my healthcare provider know before I take this medicine? Tell your healthcare provider if you have ever had: an allergic reaction to any medicine a heart attack, stroke, or other heart disease angina pectoris (chest pain) cluster headaches hemiplegic or basilar migraine headaches liver, kidney, or bowel disease peripheral vascular disease (problems with blood circulation) uncontrolled high blood pressure phenylketonuria (PKU). The tablets that melt on your tongue contain aspartame, a source of phenylalanine. Talk with your healthcare provider if you have any risk factors for heart disease such as diabetes,high cholesterol, smoking, being overweight, or a family history of heart disease or stroke. Do not take this medicine if you have taken an MAO inhibitor antidepressant within the last 14 days. Females of childbearing age: Do not take this medicine if you are or plan to become because it may harm the baby. Tell your healthcare provider if you are or plan to become while taking this medicine. Do not breast-feed while taking this medicine without your healthcare provider's approval. How do I use it? Take this medicine exactly as your healthcare provider prescribes. Take 1 dose with water when you start getting a migraine. If approved by your healthcare provider, you may take a second dose at least 2 hours after the first dose if the migraine returns. If the first dose is not effective, DO NOT take a second dose unless your healthcare provider approves. If you are not sure of the directions for taking this medicine, ask your healthcare provider or pharmacist to explain. Do not take more than 30 mg in 24 hours. This medicine is available in two forms: tablets that you can swallow and tablets that melt on yourtongue. The tablets that melt on your tongue come in an aluminum pouch with a blister pack inside that holds a tablet. Do not open the blister pack until you are ready to take the tablet. With dry hands, peel open the blister pack and place the tablet on your tongue. No water is necessary. Read the information sheet that comes in the medicine package for more information. If you are also taking propranolol (Inderal), do not take more than 5 mg of this medicine (rizatriptan) at one time. Also, do not take more than 15 mg of this medicine in 24 hours. If you take more tablets than prescribed, contact your healthcare provider or poison control centerright away for directions on what to do, or get emergency medical care. Do not take other migraine medicines within 24 hours of a dose of this medicine. What should I watch out for? This medicine may cause serious heart problems, stroke, or increased blood pressure. If you developtightness or pain in your chest, jaw, or neck, contact your healthcare provider right away. This medicine may make you dizzy or drowsy. Do not drive or operate machinery unless you are fully alert. This medicine may make your skin more sensitive to the sun, which may lead to painful sunburns. While you are taking this medicine, avoid long exposure to the sun. Wear protective clothing, a hat, and sunscreen lotion when you need to be outdoors. Do not use a sunlamp. If you get a severe sunburn, contact your healthcare provider right away. Do not smoke while using this medicine. Smoking may increase your risk of side effects. If you have more than 4 migraine attacks a month, ask your healthcare provider what to do. What are the possible side effects? Along with its needed effects, your medicine may cause some unwanted side effects. Some side effects may be very serious. Some side effects may go away as your body adjusts to the medicine. Tell yourhealthcare provider if you have any side effects that continue or get worse. Life-threatening: (Report these to your healthcare provider right away. If you cannot reach your healthcare provider right away, get emergency medical care or call 911 for help.): Allergic reaction (hives; itching; rash; chest pain or tightness in your chest; trouble breathing; swelling of your lips, tongue, and throat); sudden confusion or severe weakness. Serious (report these to your healthcare provider right away): Jaw or neck tightness, chest pain, irregular or rapid heartbeat, sudden or severe abdominal pain, bloody diarrhea, severe headache, easybruising. Other: Nausea, vomiting, diarrhea, dizziness, drowsiness, depression, tiredness, ringing in the ears, nervousness, tremor, flushing or tingling sensation, muscle or joint pain, sore throat, vision changes, dry mouth, constipation, weight gain, ankle swelling, sweating, eye pain, weakness, confusion. What products might interact with this medicine? When you take this medicine with other medicines, it can change the way this or any of the other medicines work. Nonprescription medicines, vitamins, natural remedies, and certain foods may also interact. Using these products together might cause harmful side effects. Talk to your healthcare provider if you are taking: antidepressants such as citalopram (Celexa), fluoxetine (Prozac, Sarafem), fluvoxamine (Luvox), paroxetine (Paxil), sertraline (Zoloft), duloxetine (Cymbalta), and venlafaxine (Effexor) ergot-containing medicines such as ergotamine (Bel Tabs, Bellamine S, Cafergot, Ergomar) and dihydroergotamine (D.H.E. 45, Migranal) (Do not take these within 24 hours of a dose of this medicine.) MAO inhibitor antidepressants such as phenelzine (Nardil), tranylcypromine (Parnate), and isocarboxazid (Marplan) (Do not take this medicine within 14 days of an MAO inhibitor.) herbal remedies such as kava and Blue Eye's wort propranolol (Inderal) any medicines taken by mouth or inhaled to treat migraines, which include almotriptan (Axert), eletriptan (Relpax), frovatriptan (Frova), naratriptan (Amerge), rizatriptan (Maxalt), sumatriptan (Imitrex), and zolmitriptan (Zomig) sibutramine (Meridia) ziprasidone (Geodon). Keep a list of all your medicines (prescription, nonprescription, supplements, natural remedies, and vitamins) with you. Be sure that you tell all healthcare providers who treat you about all the products you are taking. How should I store this medicine? Store this medicine at room temperature. Keep the container tightly closed. Protect it from heat, high humidity, and bright light. This advisory includes selected information only and may not include all side effects of this medicine or interactions with other medicines. Ask your healthcare provider or pharmacist for more information or if you have any questions. Ask your pharmacist for the best way to dispose of outdated medicine or medicine you have not used.Do not throw medicines in the trash. Keep all medicines out of the reach of children. Do not share medicines with other people. Published by [employer]. This content is reviewed periodically and is subject to change as new health information becomes available. The information is intended to inform and educate and is not a replacement for medical evaluation, advice, diagnosis or treatment by a healthcare professional. Developed by [employer] Copyright 2006 [employer] and/or one of its subsidiaries. All Rights Reserved. Special Instructions: As directed. Copyright [employer] Reference Systems 2006 [employer]visor Copyright 2007 [employer]. All rights reserved. - www.[employer]up Amitriptyline: Patient drug information Access Focus Online for additional drug information, tools, and databases. Copyright 3734-1832 [employer]. All rights reserved. Contributor Disclosures (For additional information see Amitriptyline: Drug information and see Amitriptyline: Pediatricdrug information) You must carefully read the Consumer Information Use and Disclaimer below in order to understand and correctly use this information. Brand Names: Ling AG-Amitriptyline; Amitriptyline-10; Amitriptyline-25; APO-Amitriptyline; Elavil; JAMP-Amitriptyline; Mar-Amitriptyline; PMS-Amitriptyline; PRIVA-Amitriptyline; TEVA-Amitriptyline Warning Drugs like this one have raised the chance of suicidal thoughts or actions in children and young adults. The risk may be greater in people who have had these thoughts or actions in the past. All people who take this drug need to be watched closely. Call the doctor right away if signs like low mood (depression), nervousness, restlessness, grouchiness, panic attacks, or changes in mood or actions are new or worse. Call the doctor right away if any thoughts or actions of suicide occur. This drug is not approved for use in children. Talk with the doctor. What is this drug used for? It is used to treat low mood (depression). It may be given to you for other reasons. Talk with the doctor. What do I need to tell my doctor BEFORE I take this drug? If you are allergic to this drug; any part of this drug; or any other drugs, foods, or substances. Tell your doctor about the allergy and what signs you had. If you have had a recent heart attack. If you have taken certain drugs for depression or Parkinson's disease in the last 14 days. This includes isocarboxazid, phenelzine, tranylcypromine, selegiline, or rasagiline. Very high blood pressure may happen. If you are taking any of these drugs: Linezolid or methylene blue. If you are taking cisapride. This is not a list of all drugs or health problems that interact with this drug. Tell your doctor and pharmacist about all of your drugs (prescription or OTC, natural products, vitamins) and health problems. You must check to make sure that it is safe for you to take this drug with all of your drugs and health problems. Do not start, stop, or change the dose of any drug withoutchecking with your doctor. What are some things I need to know or do while I take this drug? Tell all of your health care providers that you take this drug. This includes your doctors, nurses,pharmacists, and dentists. This drug may need to be stopped before certain types of surgery as yourdoctor has told you. If this drug is stopped, your doctor will tell you when to start taking this drug again after your surgery or procedure. Avoid driving and doing other tasks or actions that call for you to be alert until you see how thisdrug affects you. To lower the chance of feeling dizzy or passing out, rise slowly if you have been sitting or lying down. Be careful going up and down stairs. Do not stop taking this drug all of a sudden without calling your doctor. You may have a greater risk of signs of withdrawal. If you need to stop this drug, you will want to slowly stop it as orderedby your doctor. If you have high blood sugar (diabetes), you will need to watch your blood sugar closely. Tell your doctor if you have signs of high or low blood sugar like breath that smells like fruit, dizziness, fast breathing, fast heartbeat, feeling confused, feeling sleepy, feeling weak, flushing, headache, more thirsty or hungry, passing urine more often, shaking, or sweating. Talk with your doctor before you use alcohol, marijuana or other forms of cannabis, or prescriptionor OTC drugs that may slow your actions. Some people may have a higher chance of eye problems with this drug. Your doctor may want you to have an eye exam to see if you have a higher chance of these eye problems. Call your doctor right awayif you have eye pain, change in eyesight, or swelling or redness in or around the eye. This drug may make you sunburn more easily. Use care if you will be in the sun. Tell your doctor ifyou sunburn easily while taking this drug. Be careful in hot weather or while being active. Drink lots of fluids to stop fluid loss. Some people may get a severe muscle problem called tardive dyskinesia. This problem may lessen or go away after stopping this drug, but it may not go away. The risk is greater with diabetes and in older adults, especially older females. The risk is greater with longer use or higher doses, but it may also occur after short-term use with low doses. Call your doctor right away if you have trouble controlling body movements or problems with your tongue, face, mouth, or jaw like tongue sticking out,puffing cheeks, mouth puckering, or chewing. If you are 65 or older, use this drug with care. You could have more side effects. Tell your doctor if you are , plan on getting , or are breast- feeding. You will need to talk about the benefits and risks to you and the baby. What are some side effects that I need to call my doctor about right away? WARNING/CAUTION: Even though it may be rare, some people may have very bad and sometimes deadly side effects when taking a drug. Tell your doctor or get medical help right away if you have any of thefollowing signs or symptoms that may be related to a very bad side effect: Signs of an allergic reaction, like rash; hives; itching; red, swollen, blistered, or peeling skin with or without fever; wheezing; tightness in the chest or throat; trouble breathing, swallowing, ortalking; unusual hoarseness; or swelling of the mouth, face, lips, tongue, or throat. Signs of high or low blood pressure like very bad headache or dizziness, passing out, or change in eyesight. Signs of liver problems like dark urine, feeling tired, not hungry, upset stomach or stomach pain, light-colored stools, throwing up, or yellow skin or eyes. Weakness on 1 side of the body, trouble speaking or thinking, change in balance, drooping on one side of the face, or blurred eyesight. Chest pain or pressure, a fast heartbeat, or an abnormal heartbeat. Feeling confused, not able to focus, or change in behavior. Trouble passing urine. Fever, chills, or sore throat; any unexplained bruising or bleeding; or feeling very tired or weak. Swelling. Shakiness. Seizures. Hallucinations (seeing or hearing things that are not there). A burning, numbness, or tingling feeling that is not normal. Change in sex interest. Not able to get or keep an erection. Swelling of the testicles. Enlarged breasts or nipple discharge. Severe constipation or stomach pain. These may be signs of a severe bowel problem. Not sweating during activities or in warm temperatures. Trouble sleeping. Bad dreams. Ringing in ears. Change in tongue color. Sweating a lot. Joint pain. What are some other side effects of this drug? All drugs may cause side effects. However, many people have no side effects or only have minor sideeffects. Call your doctor or get medical help if any of these side effects or any other side effects bother you or do not go away: Constipation, diarrhea, stomach pain, upset stomach, throwing up, or feeling less hungry. Feeling dizzy, sleepy, tired, or weak. Dry mouth. Headache. Anxiety. Feeling nervous and excitable. Change in taste. Weight gain or loss. Mouth sores. These are not all of the side effects that may occur. If you have questions about side effects, call your doctor. Call your doctor for medical advice about side effects. You may report side effects to your national health agency. How is this drug best taken? Use this drug as ordered by your doctor. Read all information given to you. Follow all instructionsclosely. Take at bedtime if taking once a day. Keep taking this drug as you have been told by your doctor or other health care provider, even if you feel well. What do I do if I miss a dose? Take a missed dose as soon as you think about it. If it is close to the time for your next dose, skip the missed dose and go back to your normal time. Do not take 2 doses at the same time or extra doses. How do I store and/or throw out this drug? Store at room temperature in a dry place. Do not store in a bathroom. Keep all drugs in a safe place. Keep all drugs out of the reach of children and pets. Throw away unused or drugs. Do not flush down a toilet or pour down a drain unless you are told to do so. Check with your pharmacist if you have questions about the best way to throw out drugs. There may be drug take-back programs in your area. General drug facts If your symptoms or health problems do not get better or if they become worse, call your doctor. Do not share your drugs with others and do not take anyone else's drugs. Some drugs may have another patient information leaflet. If you have any questions about this drug,please talk with your doctor, nurse, pharmacist, or other health care provider. If you think there has been an overdose, call your poison control center or get medical care right away. Be ready to tell or show what was taken, how much, and when it happened. Last Reviewed [id number] Consumer Information Use and Disclaimer This generalized information is a limited summary of diagnosis, treatment, and/or medication information. It is not meant to be comprehensive and should be used as a tool to help the user understand and/or assess potential diagnostic and treatment options. It does NOT include all information about conditions, treatments, medications, side effects, or risks that may apply to a specific patient. Itis not intended to be medical advice or a substitute for the medical advice, diagnosis, or treatment of a health care provider based on the health care provider's examination and assessment of a patient's specific and unique circumstances. Patients must speak with a health care provider for complete information about their health, medical questions, and treatment options, including any risks or benefits regarding use of medications. This information does not endorse any treatments or medications as safe, effective, or approved for treating a specific patient. [employer]. and its affiliatesdisclaim any warranty or liability relating to this information or the use thereof. The use of thisinformation is governed by the Terms of Use, available at https://www.[employer].com/en/know/gninipru-hdstkqzdoftdz-qtqun. 2021 [employer]. and its affiliates and/or licensors. All rights reserved. Use of [employer] is subject to the Terms of Use. Topic 55638 Version 161.0 documented in this [facility] History of Present illness Narrative* Sharon Ellison PA-C - 06/24/2022 4:34 PM EDT 32 year old female with c/o increase in frequency with chronic headaches. Starts in bilateral neck and radiates to frontal . Identifies these as tension headaches. Usually can go away with ibuprofen Also identifes has migraine which are more severe and more in frontal head and eyes with phonophobia, light sensitivity. Nauseated without vomiting. If doesn't improve has to isolate and sleep. Exedrin migraine works sometimes. Has had to go to ER in past. Has hx bruxism Currently a couple times a week, every other week full blown migraine. HISTORIES FAMILY HISTORY Problem Relation Age of Onset Cervical Cancer Mother other (breast cyst [Other]) Mother Hyperlipidemia Father Hypertension Father No Known Problems Brother ADD/ADHD Brother Stroke Maternal Grandmother No Known Problems Maternal Grandfather Hypertension Paternal Grandmother Hyperlipidemia Paternal Grandmother Skin Cancer Paternal Grandmother Hypertension Paternal Grandfather Heart Attack Paternal Grandfather Diabetes Paternal Grandfather Hyperlipidemia Paternal Grandfather COPD Paternal Grandfather ADD/ADHD Son No Known Problems Half-sister No Known Problems Half-sister PAST MEDICAL HISTORY Diagnosis Date GERD without esophagitis 12/31/2021 Obesity, Class I, BMI 30-34.9 12/31/2021 PCOS (polycystic ovarian syndrome) Tobacco use disorder 12/31/2021 PAST SURGICAL HISTORY Procedure Laterality Date F SUBTOTAL ABD HYSTERECTOMY N/A 12/2019 Partial LAPS ABD PRTM&OMENTUM DX W/WO SPEC BR/WA SPX Laparoscopy REMOVAL OF OVARY(S) Right 10/24/2020 ovarian torsion REMOVAL OF OVARY(S) Left 12/2020 Dr Jo SALPINGECTOMY Right 12/27/2016 laparoscopic Right salpingectomy- ECTOPIC Social History Tobacco Use Smoking status: Every Day Packs/day: 0.50 Years: 15.00 Pack years: 7.50 Types: Cigarettes Smokeless tobacco: Never Vaping Use Vaping Use: Never used Substance Use Topics Alcohol use: Yes Alcohol/week: 1.0 standard drink Types: 1 Glasses of Wine (5oz) per week Comment: Social Drug use: No ACTIVE PROBLEM LIST Gastroenteritis Abdominal Pain, Acute, Right Upper Quadrant Tachycardia Menstrual Irregularity Infertility Associated With Anovulation Pelvic Pain in Female Gerd Without Esophagitis Obesity, Class I, Bmi 30-34.9 Tobacco Use Disorder Hyperglycemia Mixed Hyperlipidemia Current Outpatient Medications Medication Sig Dispense Refill atorvastatin (LIPITOR) 20 mg tablet Take 1 tablet by mouth daily at bedtime. For cholesterol. 30 tablet 5 estradiol (ESTRACE) 2 mg tablet Take 2 mg by mouth once daily. Cholecalciferol, Vitamin D3, 125 mcg (5,000 unit) cap Take 1 capsule by mouth once daily. 90 capsule 0 Current Facility-Administered Medications Medication Dose Route Frequency Provider Last Rate Last Admin perflutren lipid microspheres 1.3 mL in NaCl (PF) 0.9% 10 mL injection (DEFINITY) INTRAVENOUS DIRECTED PRN Hollie Ballard MD sodium chloride 0.9 % (flush) 10 mL (BD POSIFLUSH) 10 mL INTRAVENOUS DIRECTED PRN Hollie Ballard MD HEPATITIS B(1 of 3 - 3-dose series) Never done PNEUMOCOCCAL(1 - PCV) Never done HPV TESTING Never done PAP TESTING due on 12/05/2020 EXAM: BP 120/70 Pulse 106 Resp 16 Wt 78.5 kg (173 lb) LMP 08/04/2016 SpO2 99% BMI 30.65 kg/m Pleasant well-appearing adult woman in no acute distress. Alert and oriented all spheres. Normal affect and cognition. Speech normal. No deficits to learning or comprehension. Skin warm, dry, pink to lips and nailbeds. Normal turgor. Respirations regular and unlabored. HEENT: NCAT. PERRLA, EOMI, anterior chambers deep. No scleral icterus or conjunctival injection. TM's clear. Nose and oropharynx free from injection or lesion. Oral membranes moist and pink. No cervical lymph nodes. Neck supple with FROM. Tender trigger points bilateral TMJ and SCM insertions. Thyroid non-tender, no masses, or enlargement. Carotids pulses 2+/4+ without bruits. Extrem: no clubbing or cyanosis. Edema: none. Extremities are warm and pink with prompt capillary refill. No focal neurologic deficits. Cranial nerves II through XII are grossly normal. ASSESSMENT/PLAN: 1. 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 Add rizatriptan 10 mg sublingual as needed for migraine quality headache. May continue [id number] analgesics if needed. - AMITRIPTYLINE 10 MG TABLET - RIZATRIPTAN 10 MG DISINTEGRATING TABLET 2. Bruxism - ICD9: 306.8, ICD10: F45.8 3. 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 We will see how she does with the above regimen, consider adding Flexeril at at bedtime if persistent headaches. Consider consult to headache medicine. Reviewed medications, warnings, side effects, administration. Strongly urged patient to try to get at least 64 ounces of noncaffeinated, nonalcoholic water or other beverages. Stressed the importance of hydration also the importance of management of stress and anxiety. Follow-up through [facility] in the next 4 weeks on progress, in office if not improving. Sharon Ellison PA-C documented in this encounterF[facility]08-22-2022 Miscellaneous Notes* Telephone Encounter - Radha Garduno APRN.CNP - 06/23/2022 3:33 PM EDT Please help schedule an appointment for headache evaluation. Radha Garduno APRN.CNP documented in this encounterFlower [facility]07-18-2022 Instructions* Patient Instructions* Bernabe Islas APRN.CNP - 05/19/2022 12:48 PM EDT How to Manage Common Symptoms Associated with COVID for Adults Fever- Fever is a temperature over 100.4 F and can occur when the body is fighting an infection. Tohelp treat a fever: Drink plenty of fluids and stay well hydrated. Eat small amounts of easy to digest food. Rest. Your body needs rest to recover, but getting up and moving around the house frequently is a good idea. You should try to continue doing your normal daily activities (bathing, toileting, grooming, cooking), though you will probably feel tired, and need to rest often. Avoid any heavy activity or exercise, as this will increase your body temperature. Dress in light clothing and stay covered in a light sheet. Keep the room temperature cool. Take a slightly warm (not cold or cool) bath, or apply damp washcloths to the forehead and wrists. Cough- Cough is a common symptom associated with COVID and can be bothersome. To help treat a cough: Stay well hydrated. Try warm water or tea with lemon and/or honey to help soothe the cough. Use a humidifier to add moisture to the air. Try a product with menthol, like a cough drop or a rub for your chest such as Vicks, which can helpreduce cough. Try cough drops. Avoid smoking and other strong odors or perfumes. Try breathing exercises to keep your lungs open and clear. Take a big deep breath through your noseand hold for 5 seconds before slowly releasing. Repeat frequently, while you are awake. Congestion- Runny nose or nasal congestion can occur with COVID. Treatment can help relieve symptoms: Try OTC nasal saline spray, or nasal saline rinse to relieve mucus congestion. Nasal strips can help keep nasal passages open, to increase airflow. Elevating your head with an extra pillow in bed can help reduce congestion. Using a humidifier can increase moisture in the air, and make breathing easier. Sore Throat- Another common symptom with COVID, can be managed at home by: Stay well hydrated. Gargle with salt water mix teaspoon salt with 1 cup of warm water and gargle. This helps to loosen mucus in the back of the throat and may reduce discomfort. Try ice chips, popsicles or lozenges to soothe the throat. Nausea/Vomiting/Diarrhea- These are common symptoms, and staying hydrated is most important. If you are nauseous or vomiting, start with small sips of water every 10-15 minutes and increase astolerated. You can try sucking an ice cube too. If tolerating, you can try pedialyte or Gatorade, or flat sprite or aaron-flores. Start slowly and increase as you are able to. Instead of meals, try smaller, more frequent snacks. Try eating bland foods like crackers, toast, rice, and applesauce. Avoid spicy, greasy or fried foods and dairy containing foods. Even if you aren't feeling hungry due to lack of smell or taste, it is important to try to take in some food when you are able. After drinking and eating, rest in an upright position for up to two hours as needed to help decrease nauseous feelings. Try closing your eyes, avoid moving and watching TV. Avoid strong odors that can make you feel more nauseated. When to seek emergency medical attention Look for emergency warning signs for COVID-19. If having any of these symptoms, seek emergency medical care immediately: Trouble breathing Persistent pain or pressure in the chest New confusion Inability to wake or stay awake Bluish lips or face *This list is not all possible symptoms. Please call your medical provider for any other symptoms that are severe or concerning to you. documented in this encounterFlower Hospital07-18-2022 History of Present illness Narrative* Bernabe Islas APRN.CNP - 05/19/2022 12:42 PM EDT Subjective HPI Nontoxic-appearing female presents urgent care chief complaint COVID-19 concerns and possible foreign body lodged in esophagus. Patient states was exposed to individuals with COVID-19. Had a migraineyesterday. States headache has improved. States she does have some residual nausea sore throat ear pain and headache. Patient presents today due to possible pill stuck in her esophagus. Patient states she feels like symptoms stuck in her esophagus. She is able to handle secretions and eat. Denies any fever body aches chills productive cough chest pain shortness of breath or change in bowel or bladder habits. Denies any trismus difficulty handling secretions decreased range of motion neck. Past m edical history prescription medication use allergies reviewed. .Patient presents with: Headache: nausea, ear pain, throat feels like something in it x 1 day PAST MEDICAL HISTORY Diagnosis Date GERD without esophagitis 12/31/2021 Obesity, Class I, BMI 30-34.9 12/31/2021 PCOS (polycystic ovarian syndrome) Tobacco use disorder 12/31/2021 PAST SURGICAL HISTORY Procedure Laterality Date F SUBTOTAL ABD HYSTERECTOMY N/A 12/2019 Partial LAPS ABD PRTM&OMENTUM DX W/WO SPEC BR/WA SPX Laparoscopy REMOVAL OF OVARY(S) Right 10/24/2020 ovarian torsion REMOVAL OF OVARY(S) Left 12/2020 Dr Jo SALPINGECTOMY Right 12/27/2016 laparoscopic Right salpingectomy- ECTOPIC ALLERGIES Cleocin [Clindamycin] and Sulfa (Sulfonamide Antibiotics) MEDICATIONS atorvastatin (LIPITOR) 20 mg tablet Take 1 tablet by mouth daily at bedtime. For cholesterol. Cholecalciferol, Vitamin D3, 125 mcg (5,000 unit) cap Take 1 capsule by mouth once daily. estradiol (ESTRACE) 2 mg tablet FAMILY HISTORY Problem Relation Age of Onset Cervical Cancer Mother other (breast cyst [Other]) Mother Hyperlipidemia Father Hypertension Father No Known Problems Brother ADD/ADHD Brother Stroke Maternal Grandmother No Known Problems Maternal Grandfather Hypertension Paternal Grandmother Hyperlipidemia Paternal Grandmother Skin Cancer Paternal Grandmother Hypertension Paternal Grandfather Heart Attack Paternal Grandfather Diabetes Paternal Grandfather Hyperlipidemia Paternal Grandfather COPD Paternal Grandfather ADD/ADHD Son No Known Problems Half-sister No Known Problems Half-sister Social History Tobacco Use Smoking status: Current Every Day Smoker Packs/day: 0.50 Years: 15.00 Pack years: 7.50 Types: Cigarettes Smokeless tobacco: Never Used Vaping Use Vaping Use: Never used Substance Use Topics Alcohol use: Yes Alcohol/week: 1.0 standard drink Types: 1 Glasses of Wine (5oz) per week Comment: Social Drug use: No BP 128/80 Pulse 96 Temp 36.1 C (96.9 F) Resp 16 Wt 77.1 kg (170 lb) LMP 08/04/2016 BaS207% BMI 30.11 kg/m Review of Systems Constitutional: Negative for chills, fever and malaise/fatigue. HENT: Positive for ear pain and sore throat. Negative for congestion, ear discharge and sinus pain. Eyes: Negative for blurred vision, pain, discharge and redness. Respiratory: Negative for cough, hemoptysis, sputum production, shortness of breath, wheezing and stridor. Cardiovascular: Negative for chest pain. Gastrointestinal: Positive for nausea. Negative for abdominal pain, diarrhea and vomiting. Musculoskeletal: Negative for myalgias. Skin: Negative for itching and rash. Neurological: Positive for headaches. Negative for dizziness. Objective Physical Exam Vitals and nursing note reviewed. Constitutional: General: She is not in acute distress. Appearance: She is not diaphoretic. HENT: Head: Normocephalic and atraumatic. Jaw: No trismus, tenderness, swelling or pain on movement. Right Ear: Hearing, tympanic membrane, ear canal and external ear normal. No decreased hearing noted. No drainage, swelling or tenderness. No mastoid tenderness. Tympanic membrane is not perforated, erythematous or bulging. Left Ear: Hearing, tympanic membrane, ear canal and external ear normal. No decreased hearing noted. No drainage, swelling or tenderness. No mastoid tenderness. Tympanic membrane is not perforated, erythematous or bulging. Nose: Nose normal. Mouth/Throat: Mouth: Mucous membranes are moist. Pharynx: Oropharynx is clear. Uvula midline. No oropharyngeal exudate, posterior oropharyngeal erythema or uvula swelling. Tonsils: No tonsillar abscesses. Eyes: General: Right eye: No discharge. Left eye: No discharge. Conjunctiva/sclera: Conjunctivae normal. Pupils: Pupils are equal, round, and reactive to light. Cardiovascular: Rate and Rhythm: Normal rate and regular rhythm. Heart sounds: Normal heart sounds. Pulmonary: Effort: Pulmonary effort is normal. No tachypnea, accessory muscle usage or respiratory distress. Breath sounds: Normal breath sounds. No stridor. No wheezing, rhonchi or rales. Abdominal: Palpations: Abdomen is soft. Tenderness: There is no abdominal tenderness. Musculoskeletal: General: No tenderness. Normal range of motion. Cervical back: Normal range of motion and neck supple. No rigidity or tenderness. Lymphadenopathy: Head: Right side of head: No submental, submandibular, tonsillar, preauricular, posterior auricular or occipital adenopathy. Left side of head: No submental, submandibular, tonsillar, preauricular, posterior auricular or occipital adenopathy. Cervical: No cervical adenopathy. Right cervical: No superficial or posterior cervical adenopathy. Left cervical: No superficial or posterior cervical adenopathy. Skin: General: Skin is warm and dry. Findings: No rash. Neurological: Mental Status: She is alert and oriented to person, place, and time. ASSESSMENT/PLAN: 1. Viral illness - ICD9: 079.99, ICD10: B34.9 - COVID WITH FLUA+B, ROUTINE Patient diagnosed with viral illness. We discussed supportive therapies. We discussed foreign body lodged in esophagus. We discussed capabilities and diagnostic abilities in urgent care setting. If patient's symptoms persist or become bothersome will be seen in ED for further evaluation care. Patient verbalized understanding agrees with plan of care. Bernabe Islas APRN.ESSIE documented in this encounterFlower Hospital06-15-2022 Miscellaneous Notes* Telephone Encounter - Siobhan Beltran RN - 04/16/2022 4:12 PM EDT Patient returned call and given provider's message below and patient verbalized understanding. Hemant Beltran RN * Telephone Encounter - Treasure Ariza Ma - 04/16/2022 3:15 PM EDT Message left for pt to call back. Treasure Ariza Ma * Telephone Encounter - Hollie Ballard MD - 04/16/2022 12:46 PM EDT rx sent. Check labs in six weeks. * Telephone Encounter - Sharon Fallon RN - 04/16/2022 10:34 AM EDT Patient returned call and given provider's message below with verbalized understanding. Patient is agreeable to try medication. Please send Rx to [facility]. * Telephone Encounter - Sharon Fallon RN - 04/16/2022 9:38 AM EDT Left vm for patient to return call to nurse for provider's message. * Telephone Encounter - Hollie Ballard MD - 04/16/2022 7:45 AM EDT Vit d is improving. Stay on vit d supplement. Sugars are stable. Watch starches and carbs. Cholesterol is still very high. Interested in trying meds for them? documented in this encounterFlower Hospital03-11-2015 History of Past illness Narrative* Problem Noted Date Resolved Date Pain in joint, shoulder region 01/10/2015 0 01/21/2022 Pain, upper back 09/07/2013 01/21/2022 PCOS (polycystic ovarian syndrome) 09/27/2012 12/31/2021 Overview: Ovaries removed. documented as of this encounter (statuses as of 03/24/2022) [facility] History of Past illness Narrative* Problem Noted Date Resolved Date Pain in joint, shoulder region 01/10/2015 0 01/21/2022 Pain, upper back 09/07/2013 01/21/2022 PCOS (polycystic ovarian syndrome) 09/27/2012 12/31/2021 Overview: Ovaries removed. documented as of this encounter (statuses as of 04/16/2022) [facility] History of Past illness Narrative* Problem Noted Date Resolved Date Pain in joint, shoulder region 01/10/2015 0 01/21/2022 Pain, upper back 09/07/2013 01/21/2022 PCOS (polycystic ovarian syndrome) 09/27/2012 12/31/2021 Overview: Ovaries removed. documented as of this encounter (statuses as of 05/19/2022) [facility] History of Past illness Narrative* Problem Noted Date Resolved Date Pain in joint, shoulder region 01/10/2015 0 01/21/2022 Pain, upper back 09/07/2013 01/21/2022 PCOS (polycystic ovarian syndrome) 09/27/2012 12/31/2021 Overview: Ovaries removed. documented as of this encounter (statuses as of 06/23/2022) [facility] History of Past illness Narrative* Problem Noted Date Resolved Date Pain in joint, shoulder region 01/10/2015 0 01/21/2022 Pain, upper back 09/07/2013 01/21/2022 PCOS (polycystic ovarian syndrome) 09/27/2012 12/31/2021 Overview: Ovaries removed. documented as of this encounter (statuses as of 06/25/2022) [facility] History of Past illness Narrative* Problem Noted Date Resolved Date Pain in joint, shoulder region 01/10/2015 0 01/21/2022 Pain, upper back 09/07/2013 01/21/2022 PCOS (polycystic ovarian syndrome) 09/27/2012 12/31/2021 Overview: Ovaries removed. documented as of this encounter (statuses as of 10/20/2022) [facility] History of Past illness Narrative* Problem Noted Date Resolved Date Pain in joint, shoulder region 01/10/2015 0 01/21/2022 Pain, upper back 09/07/2013 01/21/2022 PCOS (polycystic ovarian syndrome) 09/27/2012 12/31/2021 Overview: Ovaries removed. documented as of this encounter (statuses as of 01/05/2023) [facility] History of Past illness Narrative* Problem Noted Date Resolved Date Pain in joint, shoulder region 01/10/2015 0 01/21/2022 Pain, upper back 09/07/2013 01/21/2022 PCOS (polycystic ovarian syndrome) 09/27/2012 12/31/2021 Overview: Ovaries removed. documented as of this encounter (statuses as of 01/26/2023) [facility] History of Past illness Narrative* Problem Noted Date Resolved Date Pain in joint, shoulder region 01/10/2015 0 01/21/2022 Pain, upper back 09/07/2013 01/21/2022 PCOS (polycystic ovarian syndrome) 09/27/2012 12/31/2021 Overview: Ovaries removed. documented as of this encounter (statuses as of 02/03/2023) [facility] History of Past illness Narrative* Problem Noted Date Resolved Date Pain in joint, shoulder region 01/10/2015 0 01/21/2022 Pain, upper back 09/07/2013 01/21/2022 PCOS (polycystic ovarian syndrome) 09/27/2012 12/31/2021 Overview: Ovaries removed. documented as of this encounter (statuses as of 02/05/2023) [facility] History of Past illness Narrative* Problem Noted Date Resolved Date Pain in joint, shoulder region 01/10/2015 0 01/21/2022 Pain, upper back 09/07/2013 01/21/2022 PCOS (polycystic ovarian syndrome) 09/27/2012 12/31/2021 Overview: Ovaries removed. documented as of this encounter (statuses as of 04/14/2023) [facility] History of Past illness Narrative* Problem Noted Date Resolved Date Pain in joint, shoulder region 01/10/2015 0 01/21/2022 Pain, upper back 09/07/2013 01/21/2022 PCOS (polycystic ovarian syndrome) 09/27/2012 12/31/2021 Overview: Ovaries removed. documented as of this encounter (statuses as of 04/21/2023) [facility] History of Past illness Narrative* Problem Noted Date Resolved Date Pain in joint, shoulder region 01/10/2015 0 01/21/2022 Pain, upper back 09/07/2013 01/21/2022 PCOS (polycystic ovarian syndrome) 09/27/2012 12/31/2021 Overview: Ovaries removed. documented as of this encounter (statuses as of 04/24/2023) [facility] History of Past illness Narrative* Problem Noted Date Diagnosed Date Resolved Date Pain in joint, shoulder region 01/10/2015 01/21/2022 Pain, upper back 09/07/2013 01/21/2022 PCOS (polycystic ovarian syndrome) 09/27/2012 12/31/2021 Overview: Ovaries removed. documented as of this encounter (statuses as of 08/05/2023) [facility] History of Past illness Narrative* Problem Noted Date Diagnosed Date Resolved Date Pain in joint, shoulder region 01/10/2015 01/21/2022 Pain, upper back 09/07/2013 01/21/2022 PCOS (polycystic ovarian syndrome) 09/27/2012 12/31/2021 Overview: Ovaries removed. documented as of this encounter (statuses as of 08/18/2023) [facility] History of Past illness Narrative* Problem Noted Date Diagnosed Date Resolved Date Pain in joint, shoulder region 01/10/2015 01/21/2022 Pain, upper back 09/07/2013 01/21/2022 PCOS (polycystic ovarian syndrome) 09/27/2012 12/31/2021 Overview: Ovaries removed. documented as of this encounter (statuses as of 08/25/2023) [facility] History of Past illness Narrative* Problem Noted Date Diagnosed Date Resolved Date Pain in joint, shoulder region 01/10/2015 01/21/2022 Pain, upper back 09/07/2013 01/21/2022 PCOS (polycystic ovarian syndrome) 09/27/2012 12/31/2021 Overview: Ovaries removed. documented as of this encounter (statuses as of 08/28/2023) [facility] History of Past illness Narrative* Problem Noted Date Diagnosed Date Resolved Date Pain in joint, shoulder region 01/10/2015 01/21/2022 Pain, upper back 09/07/2013 01/21/2022 PCOS (polycystic ovarian syndrome) 09/27/2012 12/31/2021 Overview: Ovaries removed. documented as of this encounter (statuses as of 09/29/2023) [facility] History of Past illness Narrative* Problem Noted Date Diagnosed Date Resolved Date Pain in joint, shoulder region 01/10/2015 01/21/2022 Pain, upper back 09/07/2013 01/21/2022 PCOS (polycystic ovarian syndrome) 09/27/2012 12/31/2021 Overview: Ovaries removed. documented as of this encounter (statuses as of 10/12/2023) [facility] History of Past illness Narrative* Problem Noted Date Diagnosed Date Resolved Date Pain in joint, shoulder region 01/10/2015 01/21/2022 Pain, upper back 09/07/2013 01/21/2022 PCOS (polycystic ovarian syndrome) 09/27/2012 12/31/2021 Overview: Ovaries removed. documented as of this encounter (statuses as of 12/15/2023) [facility] History of Past illness Narrative* Problem Noted Date Diagnosed Date Resolved Date Pain in joint, shoulder region 01/10/2015 01/21/2022 Pain, upper back 09/07/2013 01/21/2022 PCOS (polycystic ovarian syndrome) 09/27/2012 12/31/2021 Overview: Ovaries removed. documented as of this encounter (statuses as of 12/16/2023) [facility] History of Past illness Narrative* Problem Noted Date Diagnosed Date Resolved Date Pain in joint, shoulder region 01/10/2015 01/21/2022 Pain, upper back 09/07/2013 01/21/2022 PCOS (polycystic ovarian syndrome) 09/27/2012 12/31/2021 Overview: Ovaries removed. documented as of this encounter (statuses as of 12/17/2023) [place] [facility] History of Past illness Narrative* Problem Noted Date Diagnosed Date Resolved Date Pain in joint, shoulder region 01/10/2015 01/21/2022 Pain, upper back 09/07/2013 01/21/2022 PCOS (polycystic ovarian syndrome) 09/27/2012 12/31/2021 Overview: Ovaries removed. documented as of this encounter (statuses as of 12/17/2023) [facility] History of Past illness Narrative* Problem Noted Date Diagnosed Date Resolved Date Pain in joint, shoulder region 01/10/2015 01/21/2022 Pain, upper back 09/07/2013 01/21/2022 PCOS (polycystic ovarian syndrome) 09/27/2012 12/31/2021 Overview: Ovaries removed. documented as of this encounter (statuses as of 01/20/2024) [facility] History of Past illness Narrative* Problem Noted Date Diagnosed Date Resolved Date Pain in joint, shoulder region 01/10/2015 01/21/2022 Pain, upper back 09/07/2013 01/21/2022 PCOS (polycystic ovarian syndrome) 09/27/2012 12/31/2021 Overview: Ovaries removed. documented as of this encounter (statuses as of 01/26/2024) [facility] History of Past illness Narrative* Problem Noted Date Diagnosed Date Resolved Date Pain in joint, shoulder region 01/10/2015 01/21/2022 Pain, upper back 09/07/2013 01/21/2022 PCOS (polycystic ovarian syndrome) 09/27/2012 12/31/2021 Overview: Ovaries removed. documented as of this encounter (statuses as of 02/09/2024) [facility] History of Past illness Narrative* Problem Noted Date Diagnosed Date Resolved Date Pain in joint, shoulder region 01/10/2015 01/21/2022 Pain, upper back 09/07/2013 01/21/2022 PCOS (polycystic ovarian syndrome) 09/27/2012 12/31/2021 Overview: Ovaries removed. documented as of this encounter (statuses as of 02/10/2024) [facility] History of Past illness Narrative* Problem Noted Date Diagnosed Date Resolved Date Pain in joint, shoulder region 01/10/2015 01/21/2022 Pain, upper back 09/07/2013 01/21/2022 PCOS (polycystic ovarian syndrome) 09/27/2012 12/31/2021 Overview: Ovaries removed. documented as of this encounter (statuses as of 02/05/2024) [facility] No data available for this section [facility] Evaluation note* Diagnosis Onset Date Resolution Status Climacteric acute [facility] Work Phone: Evaluation note* Diagnosis Mixed hyperlipidemia- Primary [facility] Diagnosis Viral illness- Primary Unspecified viral infection, in conditions classified elsewhere and of unspecified site [facility]* Diagnosis 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 Migraine without aura, without mention of intractable migraine without mention of status migrainosus Bruxism Other specified psychophysiological malfunction 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 documented in this encounter [facility]No [facility] Work [facility]: evaluation note* Diagnosis LLQ pain- Primary Abdominal pain, left lower quadrant [facility] Diagnosis 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 Migraine without aura, without mention of intractable migraine without mention of status migrainosus [facility] Diagnosis Acute hip pain, left- Primary [facility]* Diagnosis Somatic dysfunction of spine, thoracic- Primary Nonallopathic lesion of thoracic region, not elsewhere classified Somatic dysfunction of spine, lumbar Nonallopathic lesion of lumbar region, not elsewhere classified Somatic dysfunction of left sacroiliac joint [facility]* Diagnosis Hyperglycemia- Primary Other abnormal glucose Mixed hyperlipidemia documented in this encounter [facility]* Diagnosis LLQ pain- Primary Abdominal pain, left lower quadrant documented in this encounter [facility]* Diagnosis Mixed hyperlipidemia- Primary [facility] Diagnosis Mixed hyperlipidemia- Primary documented in this encounter [facility] note* Diagnosis PCOS (polycystic ovarian syndrome)- Primary Polycystic ovaries documented in this encounter [facility] note* Diagnosis 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 Migraine without aura, without mention of intractable migraine without mention of status migrainosus documented in this encounter [facility] note* Diagnosis Pain of upper abdomen- Primary Abdominal pain, other specified site documented in this encounter [facility] note* Diagnosis Pain of upper abdomen Abdominal pain, other specified site documented in this encounter [facility]* Diagnosis Abdominal discomfort- Primary Abdominal pain, unspecified site [facility] Diagnosis Mixed hyperlipidemia documented in this encounter [facility] note* Diagnosis Right-sided chest pain- Primary documented in this encounter [facility]* Diagnosis Chest discomfort- Primary Other chest pain Chest pain, unspecified type Gastroesophageal reflux disease, unspecified whether esophagitis present documented in this encounter [facility] note* Diagnosis GERD without esophagitis- Primary Esophageal reflux Gastroesophageal reflux disease, unspecified whether esophagitis present Migratory abdominal pain Abdominal pain, other specified site documented in this encounter [facility]* Diagnosis Other dysphagia- Primary Wang's esophagus without dysplasia Wang's esophagus documented in this encounter [facility] note* Diagnosis Acute left-sided low back pain with left-sided sciatica- Primary documented in this encounter [facility]* Diagnosis Acute left-sided low back pain with left-sided sciatica- Primary Left hip pain Pain in joint, pelvic region and thigh documented in this encounter [facility] note* Diagnosis Acute back pain with sciatica, left- Primary Acute left-sided low back pain with left-sided sciatica Left hip pain Pain in joint, pelvic region and thigh Pain of left hip joint documented in this encounter [facility] note* Diagnosis Acute back pain with sciatica, left- Primary Pain of left hip joint documented in this encounter [facility]* Diagnosis Acute left-sided low back pain with left-sided sciatica [facility] Diagnosis Acute back pain with sciatica, left- Primary Pain of left hip joint documented in this encounter [facility]* Diagnosis Acute pain of left knee [facility] Diagnosis Acute back pain with sciatica, left- Primary Pain of left hip joint documented in this encounter [facility] note* Diagnosis Acute hip pain, left documented in this encounter [facility] note* Diagnosis Acute back pain with sciatica, left- Primary Pain of left hip joint documented in this encounter [facility] note* Diagnosis Acute back pain with sciatica, left- Primary Pain of left hip joint documented in this encounter [facility] note* Diagnosis Acute back pain with sciatica, left- Primary Pain of left hip joint documented in this encounter [facility]* Diagnosis Acute back pain with sciatica, left- Primary Pain of left hip joint documented in this encounter [facility] note* Diagnosis Pain of left hip- Primary documented in this encounter [facility] note* Diagnosis Pain Generalized pain documented in this encounter [facility] note* Diagnosis Acute otalgia, right- Primary documented in this encounter [facility] note* Diagnosis Pain of left hip documented in this encounter [facility] note* Diagnosis Pain of left hip- Primary documented in this encounter [facility]* Diagnosis Pain of left hip- Primary [facility]* Diagnosis Viral URI with cough Acute upper respiratory infections of unspecified site Costochondritis Tietze's disease Bronchitis Bronchitis, not specified as acute or chronic documented in this encounter [facility] note* Diagnosis Viral URI with cough- Primary Acute upper respiratory infections of unspecified site Bronchitis Bronchitis, not specified as acute or chronic Chest pain, unspecified type Viral URI with cough Acute upper respiratory infections of unspecified site Costochondritis Tietze's disease Bronchitis Bronchitis, not specified as acute or chronic [facility]* Diagnosis Bronchitis- Primary Bronchitis, not specified as acute or chronic documented in this encounter [facility]* Diagnosis PCOS (polycystic ovarian syndrome) Polycystic ovaries documented in this encounter [facility] note* Diagnosis 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 Migraine without aura, without mention of intractable migraine without mention of status migrainosus documented in this encounter [facility] note* Diagnosis Wellness examination- Primary Gastroesophageal reflux disease, unspecified whether esophagitis present Mixed hyperlipidemia Hyperglycemia Other abnormal glucose 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 Migraine without aura, without mention of intractable migraine without mention of status migrainosus PCOS (polycystic ovarian syndrome) Polycystic ovaries documented in this encounter [facility] note* Diagnosis Leukocytosis, unspecified type- Primary [facility] Diagnosis Pain of left hip- Primary [facility] Diagnosis Sinobronchitis- Primary Unspecified sinusitis (chronic) Vaginal yeast infection Candidiasis of vulva and vagina [facility] Diagnosis Pain of left hip- Primary [facility]* Diagnosis Leukocytosis, unspecified type- Primary Screening for depression Right facial pain Headache RUQ pain Abdominal pain, right upper quadrant Atypical facial pain Atypical face pain [facility] Diagnosis Pain of left hip- Primary Acute back pain with sciatica, left Pain of left hip joint Left hip pain Pain in joint, pelvic region and thigh Acute left-sided low back pain with left-sided sciatica [facility]* Diagnosis RUQ pain Abdominal pain, right upper quadrant [facility]* Diagnosis Pain of left hip- Primary [facility]* Diagnosis Facial pain- Primary Headache [facility]* Diagnosis Atypical facial pain Atypical face pain [facility]* Diagnosis Pain of left hip- Primary [facility]* Diagnosis Chronic maxillary sinusitis- Primary Trigeminal neuralgia Hepatic steatosis Other chronic nonalcoholic liver disease Tobacco abuse Tobacco use disorder documented in this encounter [facility]* Diagnosis Pain of left hip- Primary Pain of left hip joint Acute back pain with sciatica, left Left hip pain Pain in joint, pelvic region and thigh Acute left-sided low back pain with left-sided sciatica documented in this encounter [facility]* Diagnosis Low back pain, unspecified back pain laterality, unspecified chronicity, unspecified whether sciatica present- Primary [facility]* Diagnosis Pain of left hip- Primary [facility]* Diagnosis Gastroesophageal reflux disease, unspecified whether esophagitis present documented in this encounter [facility]* Diagnosis Pain of left hip Femoroacetabular impingement of left hip Enthesopathy of hip region documented in this encounter [facility] note* Diagnosis Femoroacetabular impingement of left hip- Primary Enthesopathy of hip region Tear of left acetabular labrum, initial encounter documented in this encounter [facility] note* Diagnosis Tear of left acetabular labrum, initial encounter- Primary Tear of left acetabular labrum, initial encounter documented in this encounter [facility]* Diagnosis Tear of left acetabular labrum, initial encounter- Primary Femoroacetabular impingement of left hip Enthesopathy of hip region Pain of left hip Pre-op evaluation- Primary Preoperative examination, unspecified Mixed hyperlipidemia GERD without esophagitis Esophageal reflux Chronic migraine with aura without status migrainosus, not intractable Tear of left acetabular labrum, initial encounter documented in this encounter [facility] note* Diagnosis Pre-op evaluation- Primary Preoperative examination, unspecified Mixed hyperlipidemia GERD without esophagitis Esophageal reflux Chronic migraine with aura without status migrainosus, not intractable Tear of left acetabular labrum, initial encounter * Assessment & Plan Note - Candy Alas APRN.CNP - 04/12/2025 7:43 AM EDT Associated Problem(s): Chronic migraine with aura without status migrainosus, not intractable Assessment: maxalt PRN, not needed recently. * Assessment & Plan Note - Candy Alas APRN.CNP - 04/12/2025 7:40 AM EDT Associated Problem(s): GERD without esophagitis Assessment: on daily prilosec. * Assessment & Plan Note - Candy Alas APRN.CNP - 04/12/2025 7:31 AM EDT Associated Problem(s): Mixed hyperlipidemia Assessment: on daily crestor documented in this encounter [facility] note* Diagnosis Pre-op evaluation- Primary Preoperative examination, unspecified Mixed hyperlipidemia GERD without esophagitis Esophageal reflux Chronic migraine with aura without status migrainosus, not intractable Tear of left acetabular labrum, initial encounter- Primary documented in this encounter [facility] note* Diagnosis Pre-op evaluation- Primary Preoperative examination, unspecified Mixed hyperlipidemia GERD without esophagitis Esophageal reflux Chronic migraine with aura without status migrainosus, not intractable Tear of left acetabular labrum, initial encounter- Primary documented in this encounter [facility] note* Diagnosis Pre-op evaluation- Primary Preoperative examination, unspecified Mixed hyperlipidemia GERD without esophagitis Esophageal reflux Chronic migraine with aura without status migrainosus, not intractable Status post arthroscopy of hip- Primary Post-operative state Other postprocedural status documented in this encounter [facility] note* Diagnosis Pre-op evaluation- Primary Preoperative examination, unspecified Mixed hyperlipidemia GERD without esophagitis Esophageal reflux Chronic migraine with aura without status migrainosus, not intractable Tear of left acetabular labrum, initial encounter- Primary documented in this encounter [facility] note* Diagnosis Pre-op evaluation- Primary Preoperative examination, unspecified Mixed hyperlipidemia GERD without esophagitis Esophageal reflux Chronic migraine with aura without status migrainosus, not intractable Tear of left acetabular labrum, initial encounter- Primary documented in this encounter [facility] note* Diagnosis Pre-op evaluation- Primary Preoperative examination, unspecified Mixed hyperlipidemia GERD without esophagitis Esophageal reflux Chronic migraine with aura without status migrainosus, not intractable Tear of left acetabular labrum, initial encounter- Primary documented in this encounter [facility] note* Diagnosis Pre-op evaluation- Primary Preoperative examination, unspecified Mixed hyperlipidemia GERD without esophagitis Esophageal reflux Chronic migraine with aura without status migrainosus, not intractable Status post arthroscopy of hip- Primary documented in this encounter [facility] note* Diagnosis Pre-op evaluation- Primary Preoperative examination, unspecified Mixed hyperlipidemia GERD without esophagitis Esophageal reflux Chronic migraine with aura without status migrainosus, not intractable Tear of left acetabular labrum, initial encounter- Primary documented in this encounter [facility] note* Diagnosis Pre-op evaluation- Primary Preoperative examination, unspecified Mixed hyperlipidemia GERD without esophagitis Esophageal reflux Chronic migraine with aura without status migrainosus, not intractable Tear of left acetabular labrum, initial encounter- [facility] Diagnosis Pre-op evaluation- Primary Preoperative examination, unspecified Mixed hyperlipidemia GERD without esophagitis Esophageal reflux Chronic migraine with aura without status migrainosus, not intractable 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 D-dimer negative. Chest x-ray negative. Avoid the estrogen smoking combo as this can lead to risk for blood clots. Continue ibuprofen 600 every 6 hours as needed. Follow-up your doctor further testing as an outpatient.[facility] Work Phone: Hospital Discharge instructions Additional Instructions Take medication as directed. Follow-up with your primary care provider regarding your facial pain and your chest pain. You may need referral to neurology. Return to the emergency department with new or worsening symptoms. You may need referral to hematology/oncology regarding her elevated white blood cell count. Have this rechecked by her primary care provider in 1 to 2 weeks.[facility] Work Phone: Reason for referral (narrative)* Diagnostic Procedure Only (Routine) - Closed Specialty Diagnoses / Procedures Referred By Gina jensen Referred To Contact US IMAGING Diagnoses Pain of upper abdomen Procedures US ABD RIGHT UPPER QUADRANT US ABDOMINAL REAL TIME W/IMAGE LIMITED Radha Garduno APRN.CNP [address] [place] [address] [place] [address] Referral ID Status Reason Start Date Expiration Date V isits Requested Visits Authorized [id number] Closed Auto-Generate d Referral 12/15/2023 01/13/2025 1 1 YAK [facility] for referral (narrative)* Diagnostic Procedure Only (Routine) - Closed Specialty Diagnoses / Procedures Referred By Contac t Referred To Contact US IMAGING Diagnoses Pain of upper abdomen Procedures US ABD RIGHT UPPER QUADRANT US ABDOMINAL REAL TIME W/IMAGE LIMITED Radha Garduno APRN.FRANCHISE DEVELOPMENT MANAGER [address] [place] [address] [place] [address] Referral ID Status Reason Start Date Expiration Date V isits Requested Visits Authorized [id number] Closed Auto-Generate d Referral 12/15/2023 01/13/2025 1 1 [facility] for referral (narrative)* Outpatient Procedure (Routine) - Authorized Specialty Diagnoses / Procedures Referred By Contac t Referred To Contact [facility] [place] Diagnoses Chest discomfort Chest pain, unspecified type Procedures EXERCISE STRESS ECG (WITHOUT IMAGING) Radha Garduno APRN.FRANCHISE DEVELOPMENT MANAGER [address] [place] [address] [facility] [address] [address] Referral ID Status Reason Start Date Expiration Date Visits Requested Visits Authorized [id number] Authorized Auto-Generat ed Referral 01/25/2024 01/24/2025 1 1 * Outpatient Procedure (Routine) - Authorized Specialty Diagnoses / Procedures Referred By Contac t Referred To Contact [facility] [place] Diagnoses Chest discomfort Chest pain, unspecified type Procedures ECHO ECHO TTHRC R-T 2D W/WOM-MODE COMPL SPEC&COLR D Radha Garduno APRN.FRANCHISE DEVELOPMENT MANAGER [address] [place] [address] [address] Referral ID Status Reason Start Date Expiration Date Visits Requested Visits Authorized [id number] Authorized Auto-Generat ed Referral 01/25/2024 01/24/2025 1 1 * Outpatient Procedure (Routine) - Pending Review Specialty Diagnoses / Procedures Referred By Gina t Referred To [facility] Diagnoses Chest discomfort Procedures ECG COMPLETE ECG ROUTINE ECG W/LEAST 12 LDS W/I&R Radha Garduno APRN.CNP [address] [place] [address] [facility] [place] [address] [place] [address] Referral ID Status Reason Start Date Expiration Date Visits Requested Visits Authorized [id number] Pending Review Auto-Generat ed Referral 01/25/2024 01/24/2025 1 1 [facility] for referral (narrative)* Outpatient Procedure (Routine) - Closed Specialty Diagnoses / Procedures Referred By Gina t Referred To Contact [facility] Diagnoses Gastroesophageal reflux disease, unspecified whether esophagitis present Migratory abdominal pain Procedures COLONOSCOPY DIAGNOSTIC COLONOSCOPY FLX DX W/COLLJ SPEC WHEN PFRMD Vishnu Molina MD [address] [place] [address] [facility] [address] [address] Referral ID Status Reason Start Date Expiration Date V isits Requested Visits Authorized [id number] Closed Auto-Generate d Referral 04/30/2023 04/30/2024 1 1 * Outpatient Procedure (Routine) - Closed Specialty Diagnoses / Procedures [facility] Diagnoses Gastroesophageal reflux disease, unspecified whether esophagitis present Migratory abdominal pain Procedures EGD DIAGNOSTIC ESOPHAGOGASTRODUODENOSC OPY TRANSORAL DIAGNOSTIC Vsihnu Molina MD [address] [place] [address] [facility] [address] [address] Referral ID Status Reason Start Date Expiration Date V isits Requested Visits Authorized [id number] Closed Auto-Generate d Referral 04/30/2023 04/30/2024 1 1 [facility] for referral (narrative)* Diagnostic Procedure Only (Routine) - Closed Specialty Diagnoses / Procedures Referred By Contac t Referred To Contact XR IMAGING Diagnoses Acute left-sided low back pain with left-sided sciatica Procedures XR LUMBAR GENERAL 3V AP/LAT/L5-S1 RADEX SPINE LUMBOSACRAL 2/3 VIEWS Radha Garduno, CARD CLOTHIER.FRANCHISE DEVELOPMENT MANAGER [address] [place] [address] [place] [address] Referral ID Status Reason Start Date Expiration Date V isits Requested Visits Authorized [id number] Closed Auto-Generate d Referral 05/02/2024 06/01/2025 1 1 [facility] for referral (narrative)* Diagnostic Procedure Only (Routine) - Closed Specialty Diagnoses / Procedures Referred By Contac t Referred To Contact XR IMAGING Diagnoses Acute left-sided low back pain with left-sided sciatica Procedures XR LUMBAR GENERAL 3V AP/LAT/L5-S1 RADEX SPINE LUMBOSACRAL 2/3 VIEWS Radha Garduno, CARD CLOTHIER.FRANCHISE DEVELOPMENT MANAGER [address] [place] [address] [place] [address] Referral ID Status Reason Start Date Expiration Date V isits Requested Visits Authorized [id number] Closed Auto-Generate d Referral 05/02/2024 06/01/2025 1 1 [facility] for referral (narrative)* Diagnostic Procedure Only (Urgent) - Closed Specialty Diagnoses / Procedures Referred By Contac t Referred To Contact XR IMAGING Diagnoses Acute pain of left knee Procedures XR KNEE GENERAL 4V AP BOTH/PA BOTH/LAT/MERC LEFT RADIOLOGIC EXAM KNEE COMPLETE 4/MORE VIEWS Bernabe Islas, CARD CLOTHIER.FRANCHISE DEVELOPMENT MANAGER [address] [place] [address] [place] [address] Referral ID Status Reason Start Date Expiration Date V isits Requested Visits Authorized [id number] Closed Auto-Generate d Referral 11/26/2023 12/25/2024 1 1 [facility] for referral (narrative)* Diagnostic Procedure Only (Routine) - Closed Specialty Diagnoses / Procedures Referred By Contac t Referred To Contact XR IMAGING Diagnoses Pain Procedures XR HIP GENERAL 3V PELV/AP/LAT LEFT RADEX HIP UNILATERAL WITH PELVIS 2-3 VIEWS Maggy Hayes PA-C [address] [place] [address] [place] [address] Referral ID Status Reason Start Date Expiration Date V isits Requested Visits Authorized [id number] Closed Auto-Generate d Referral 08/03/2024 09/02/2025 1 1 [facility] for referral (narrative)No reason for referral information [facility] Work Phone: [facility] Narrative* Outpatient Procedure (Routine) - Closed Specialty Diagnoses / Procedures Referred By Contac t Referred To Contact [facility] Diagnoses Gastroesophageal reflux disease, unspecified whether esophagitis present Migratory abdominal pain Procedures COLONOSCOPY DIAGNOSTIC COLONOSCOPY FLX DX W/COLLJ SPEC WHEN Vishnu Curtis MD [address] [place] [address] [facility] [place] [address] [place] [address] Referral ID Status Reason Start Date Expiration Date V isits Requested Visits Authorized [id number] Closed Auto-Generate d Referral 04/30/2023 04/30/2024 1 1 [facility] for visit Narrative* Diagnostic Procedure Only (Routine) - Closed Specialty Diagnoses / Procedures Referred By Contac t Referred To Contact XR IMAGING Diagnoses Acute left-sided low back pain with left-sided sciatica Procedures XR LUMBAR GENERAL 3V AP/LAT/L5-S1 RADEX SPINE LUMBOSACRAL 2/3 VIEWS Radha Garduno APRN.FRANCHISE DEVELOPMENT MANAGER [address] [place] [address] [place] [address] Referral ID Status Reason Start Date Expiration Date V isits Requested Visits Authorized [id number] Closed Auto-Generate d Referral 05/02/2024 06/01/2025 1 1 [facility] for visit Narrative* Diagnostic Procedure Only (Urgent) - Closed Specialty Diagnoses / Procedures Referred By Contac t Referred To Contact XR IMAGING Diagnoses Acute pain of left knee Procedures XR KNEE GENERAL 4V AP BOTH/PA BOTH/LAT/MERC LEFT RADIOLOGIC EXAM KNEE COMPLETE 4/MORE VIEWS Bernabe Islas, CARD CLOTHIER.FRANCHISE DEVELOPMENT MANAGER [address] [place] [address] Xr Imaging [facility] [address] [address] Referral ID Status Reason Start Date Expiration Date V isits Requested Visits Authorized [id number] Closed Auto-Generate d Referral 11/26/2023 12/25/2024 1 1 [facility] for visit Narrative* Diagnostic Procedure Only (Routine) - Closed Specialty Diagnoses / Procedures Referred By Contac t Referred To Contact XR IMAGING Diagnoses Pain Procedures XR HIP GENERAL 3V PELV/AP/LAT LEFT RADEX HIP UNILATERAL WITH PELVIS 2-3 VIEWS Maggy Hayes PA-C [address] [place] [address] Xr Imaging [facility] [address] [address] Referral ID Status Reason Start Date Expiration Date V isits Requested Visits Authorized [id number] Closed Auto-Generate d Referral 08/03/2024 09/02/2025 1 1 [facility] for visit Narrative* MRI/CT (Routine) - Closed Specialty Diagnoses / Procedures Referred By Contac t Referred To Contact MR IMAGING Diagnoses Pain of left hip Femoroacetabular impingement of left hip Procedures MRI HIP WO IVCON LEFT MRI ANY JT LOWER EXTREM W/O CONTRAST MATRL Maikel Hector PA-C [address] [place] [address] Phone: tel: fax: MR IMAGING [facility] [address] [address] Referral ID Status Reason Start Date Expiration Date V isits Requested Visits Authorized [id number] Closed Auto-Generate d Referral 03/28/2025 09/24/2025 1 1 [facility] Summary Purpose Family History No Family History Records Found Relationship Condition Age at Onset Recorded Date/T adalberto grandfather Diabetes mellitus Unknown Cardiac disease Unknown Advance Directives No Advanced Directives Records Found Advance Directive Response Recorded Date/ Time Advance Directives No May 29 1:11pm Living Will No March 07, 2022 4: 55pm Power of Circus Laborer No March 07, 2022 4:55pm Advance Directive Response Recorded Date/ Time Advance Directives No May 29 1:11pm Living Will No May 19, 2022 1:17pm Power of Circus Laborer No May 19 1:17pm Advance Directive Response Recorded Date/ Time Advance Directives No May 29 1:11pm Living Will No August 27 3:19pm Power of Circus Laborer No August 27, 2022 3:19pm Advance Directive Response Recorded Date/ Time Advance Directives No May 29 1:11pm Living Will No January 20, 2024 3:33pm Power of Circus Laborer No January 19 3:33pm Advance Directive Response Recorded Date/ Time Advance Directives No November 27, 2024 9:00am Living Will No January 11, 2025 4:55pm Power of Circus Laborer No January 11 4:55pm Chief Complaint and Reason for Visit Chief Complaint BACK PAIN MENOPAUSE CONSULT RLQ ABD PAIN Reason for Visit Climacteric Chief Complaint MENOPAUSE CONSULT RLQ ABD PAIN FOREIGN BODY Reason for Visit Climacteric Chief Complaint FOREIGN BODY abd pain, dizziness Chief Complaint CP Chief Complaint Admit Date COUGH, CHEST CONGESTION November 27 8:11am CP January 11, 2025 4:3 1pm Reason for Visit Admit Date URI (upper respiratory infection) Novuar y 2024 8:11am Reason for Referral Specialty Diagnoses / Procedures Referred By Gina t Referred To Contact MR IMAGING Diagnoses Pain of left hip Procedures MRI HIP WO IVCON LEFT MRI ANY JT LOWER EXTREM W/O CONTRAST Maggy Pineda PA-C [address] [place] [address] [place] [address] Referral ID Status Reason Start Date Expiration Date Visits Requested Visits Authorized [id number] Additional Clinical Info Needed Auto-Generat ed Referral 09/08/2024 10/08/2025 1 1 Specialty Diagnoses / Procedures Referred By Contac t Referred To Contact [facility] Diagnoses Acute left-sided low back pain with left-sided sciatica Left hip pain Procedures CONSULT TO PHYSICAL THERAPY PHYSICAL THERAPY EVALUATION HIGH COMPLEX 45 MINS Radha Garduno APRN.FRANCHISE DEVELOPMENT MANAGER [address] [place] [address] [facility] [place] [address] [place] [address] Referral ID Status Reason Start Date Expiration Date Visits Requested Visits Authorized [id number] Pending Review Auto-Generat ed Referral 06/07/2024 06/07/2025 1 1 Specialty Diagnoses / Procedures Referred By Contac t Referred To Contact Ent - Otolaryngology Diagnoses Other dysphagia Procedures CONSULT TO ENT OFFICE/OUTPATIENT [facility] 60 MINUTES Elis Garsia APRN.FRANCHISE DEVELOPMENT MANAGER [address] [place] [address] Grant Mann MD [address] [place] [address] Referral ID Status Reason Start Date Expiration Date Visits Requested Visits Authorized [id number] Authorized PCP Requested Referral 03/18/2024 03/18/2025 1 1 Specialty Diagnoses / Procedures Referred By Contac t Referred To Contact Gastroenterology Diagnoses LLQ pain Procedures CONSULT TO GASTROENTEROLOGY OFFICE/OUTPATIENT [facility] 60-74 MINUTES Radha Garduno APRN.FRANCHISE DEVELOPMENT MANAGER [address] [place] [address] Referral ID Status Reason Start Date Expiration Date Visits Requested Visits Authorized [id number] Pending Review PCP Requested Referral 04/20/2023 04/19/2024 1 1 Specialty Diagnoses / Procedures Referred By Contac t Referred To Contact General Surgery Diagnoses LLQ pain Procedures CONSULT TO GENERAL SURGERY OFFICE/OUTPATIENT [facility] 60-74 MINUTES Radha Garduno, BIBI.FRANCHISE DEVELOPMENT MANAGER [address] [place] [address] Referral ID Status Reason Start Date Expiration Date Visits Requested Visits Authorized [id number] Pending Review PCP Requested Referral 04/20/2023 04/19/2024 1 1 Specialty Diagnoses / Procedures Referred By Contac t Referred To Contact XR IMAGING Diagnoses Acute hip pain, left Procedures XR HIP GENERAL 3V PELV/AP/LAT LEFT RADEX HIP UNILATERAL WITH PELVIS 2-3 VIEWS Josh Johnson MD [address] [place] [address] Xr Imaging Referral ID Status Reason Start Date Expiration Date V isits Requested Visits Authorized [id number] Closed Auto-Generate d Referral 01/26/2023 11/01/2023 1 1 Specialty Diagnoses / Procedures Referred By Contac t Referred To Contact General Surgery / INITIAL DEPT Diagnoses LLQ pain Procedures CONSULT TO GENERAL SURGERY OFFICE/OUTPATIENT NEW HIGH MDM 60-74 MINUTES OFFICE/OUTPATIENT NEW MODERATE MDM 45-59 MINUTES Radha Garduno APRN.CNP [address] [place] [address] Initial Department Referral ID Status Reason Start Date Expiration Date V isits Requested Visits Authorized [id number] Authorized 10/21/2022 11/01/2022 1 1 Additional Source Comments Source Comments (unrecognize d section and content) In the event this informatio n is protected by the Federal Confidentiality of Alcohol and Drug Abuse Patient Records regulations: The Federal rules restrict any use of the information to criminally investigate or prosecute any alcohol or drug abuse patient.[facility] the event this information is protected by the Federal Confidentiality of Alcohol and Drug Abuse Patient Records regulations: The Federal rules restrict any use of the information to criminally investigate or prosecute any alcohol or drug abuse patient.[facility] the event this information is protected by the Federal Confidentiality of Alcohol and Drug Abuse Patient Records regulations: The Federal rules restrict any use of the information to criminally investigate or prosecute any alcohol or drug abuse patient.[facility] the event this information is protected by the Federal Confidentiality of Alcohol and Drug Abuse Patient Records regulations: The Federal rules restrict any use of the information to criminally investigate or prosecute any alcohol or drug abuse patient.[facility] the event this information is protected by the Federal Confidentiality of Alcohol and Drug Abuse Patient Records regulations: The Federal rules restrict any use of the information to criminally investigate or prosecute any alcohol or drug abuse patient.[facility] the event this information is protected by the Federal Confidentiality of Alcohol and Drug Abuse Patient Records regulations: The Federal rules restrict any use of the information to criminally investigate or prosecute any alcohol or drug abuse patient.[facility] the event this information is protected by the Federal Confidentiality of Alcohol and Drug Abuse Patient Records regulations: The Federal rules restrict any use of the information to criminally investigate or prosecute any alcohol or drug abuse patient.[facility] the event this information is protected by the Federal Confidentiality of Alcohol and Drug Abuse Patient Records regulations: The Federal rules restrict any use of the information to criminally investigate or prosecute any alcohol or drug abuse patient.[facility] the event this information is protected by the Federal Confidentiality of Alcohol and Drug Abuse Patient Records regulations: The Federal rules restrict any use of the information to criminally investigate or prosecute any alcohol or drug abuse patient.[facility] the event this information is protected by the Federal Confidentiality of Alcohol and Drug Abuse Patient Records regulations: The Federal rules restrict any use of the information to criminally investigate or prosecute any alcohol or drug abuse patient.[facility] the event this information is protected by the Federal Confidentiality of Alcohol and Drug Abuse Patient Records regulations: The Federal rules restrict any use of the information to criminally investigate or prosecute any alcohol or drug abuse patient.[facility] the event this information is protected by the Federal Confidentiality of Alcohol and Drug Abuse Patient Records regulations: The Federal rules restrict any use of the information to criminally investigate or prosecute any alcohol or drug abuse patient.[facility] the event this information is protected by the Federal Confidentiality of Alcohol and Drug Abuse Patient Records regulations: The Federal rules restrict any use of the information to criminally investigate or prosecute any alcohol or drug abuse patient.[facility] the event this information is protected by the Federal Confidentiality of Alcohol and Drug Abuse Patient Records regulations: The Federal rules restrict any use of the information to criminally investigate or prosecute any alcohol or drug abuse patient.[facility] the event this information is protected by the Federal Confidentiality of Alcohol and Drug Abuse Patient Records regulations: The Federal rules restrict any use of the information to criminally investigate or prosecute any alcohol or drug abuse patient.[facility] the event this information is protected by the Federal Confidentiality of Alcohol and Drug Abuse Patient Records regulations: The Federal rules restrict any use of the information to criminally investigate or prosecute any alcohol or drug abuse patient.[facility] the event this information is protected by the Federal Confidentiality of Alcohol and Drug Abuse Patient Records regulations: The Federal rules restrict any use of the information to criminally investigate or prosecute any alcohol or drug abuse patient.[facility] the event this information is protected by the Federal Confidentiality of Alcohol and Drug Abuse Patient Records regulations: The Federal rules restrict any use of the information to criminally investigate or prosecute any alcohol or drug abuse patient.[facility] the event this information is protected by the Federal Confidentiality of Alcohol and Drug Abuse Patient Records regulations: The Federal rules restrict any use of the information to criminally investigate or prosecute any alcohol or drug abuse patient.[facility] HospitalIn the event this information is protected by the Federal Confidentiality of Alcohol and Drug Abuse Patient Records regulations: The Federal rules restrict any use of the information to criminally investigate or prosecute any alcohol or drug abuse patient.[facility] HospitalIn the event this information is protected by the Federal Confidentiality of Alcohol and Drug Abuse Patient Records regulations: The Federal rules restrict any use of the information to criminally investigate or prosecute any alcohol or drug abuse patient.[facility] HospitalIn the event this information is protected by the Federal Confidentiality of Alcohol and Drug Abuse Patient Records regulations: The Federal rules restrict any use of the information to criminally investigate or prosecute any alcohol or drug abuse patient.[facility] HospitalIn the event this information is protected by the Federal Confidentiality of Alcohol and Drug Abuse Patient Records regulations: The Federal rules restrict any use of the information to criminally investigate or prosecute any alcohol or drug abuse patient.[facility] HospitalIn the event this information is protected by the Federal Confidentiality of Alcohol and Drug Abuse Patient Records regulations: The Federal rules restrict any use of the information to criminally investigate or prosecute any alcohol or drug abuse patient.[facility] Hospital[facility] the event this information is protected by the Federal Confidentiality of Alcohol and Drug Abuse Patient Records regulations: The Federal rules restrict any use of the information to criminally investigate or prosecute any alcohol or drug abuse patient.[facility] HospitalIn the event this information is protected by the Federal Confidentiality of Alcohol and Drug Abuse Patient Records regulations: The Federal rules restrict any use of the information to criminally investigate or prosecute any alcohol or drug abuse patient.[facility] HospitalIn the event this information is protected by the Federal Confidentiality of Alcohol and Drug Abuse Patient Records regulations: The Federal rules restrict any use of the information to criminally investigate or prosecute any alcohol or drug abuse patient.[facility] HospitalIn the event this information is protected by the Federal Confidentiality of Alcohol and Drug Abuse Patient Records regulations: The Federal rules restrict any use of the information to criminally investigate or prosecute any alcohol or drug abuse patient.[facility] HospitalIn the event this information is protected by the Federal Confidentiality of Alcohol and Drug Abuse Patient Records regulations: The Federal rules restrict any use of the information to criminally investigate or prosecute any alcohol or drug abuse patient.[facility] HospitalIn the event this information is protected by the Federal Confidentiality of Alcohol and Drug Abuse Patient Records regulations: The Federal rules restrict any use of the information to criminally investigate or prosecute any alcohol or drug abuse patient.[facility] HospitalIn the event this information is protected by the Federal Confidentiality of Alcohol and Drug Abuse Patient Records regulations: The Federal rules restrict any use of the information to criminally investigate or prosecute any alcohol or drug abuse patient.[facility] HospitalIn the event this information is protected by the Federal Confidentiality of Alcohol and Drug Abuse Patient Records regulations: The Federal rules restrict any use of the information to criminally investigate or prosecute any alcohol or drug abuse patient.[facility] HospitalIn the event this information is protected by the Federal Confidentiality of Alcohol and Drug Abuse Patient Records regulations: The Federal rules restrict any use of the information to criminally investigate or prosecute any alcohol or drug abuse patient.[facility] HospitalIn the event this information is protected by the Federal Confidentiality of Alcohol and Drug Abuse Patient Records regulations: The Federal rules restrict any use of the information to criminally investigate or prosecute any alcohol or drug abuse patient.[facility] HospitalIn the event this information is protected by the Federal Confidentiality of Alcohol and Drug Abuse Patient Records regulations: The Federal rules restrict any use of the information to criminally investigate or prosecute any alcohol or drug abuse patient.[facility] HospitalIn the event this information is protected by the Federal Confidentiality of Alcohol and Drug Abuse Patient Records regulations: The Federal rules restrict any use of the information to criminally investigate or prosecute any alcohol or drug abuse patient.[facility] HospitalIn the event this information is protected by the Federal Confidentiality of Alcohol and Drug Abuse Patient Records regulations: The Federal rules restrict any use of the information to criminally investigate or prosecute any alcohol or drug abuse patient.[facility] HospitalIn the event this information is protected by the Federal Confidentiality of Alcohol and Drug Abuse Patient Records regulations: The Federal rules restrict any use of the information to criminally investigate or prosecute any alcohol or drug abuse patient.[facility] HospitalIn the event this information is protected by the Federal Confidentiality of Alcohol and Drug Abuse Patient Records regulations: The Federal rules restrict any use of the information to criminally investigate or prosecute any alcohol or drug abuse patient.[facility] HospitalIn the event this information is protected by the Federal Confidentiality of Alcohol and Drug Abuse Patient Records regulations: The Federal rules restrict any use of the information to criminally investigate or prosecute any alcohol or drug abuse patient.[facility] HospitalIn the event this information is protected by the Federal Confidentiality of Alcohol and Drug Abuse Patient Records regulations: The Federal rules restrict any use of the information to criminally investigate or prosecute any alcohol or drug abuse patient.[facility] HospitalIn the event this information is protected by the Federal Confidentiality of Alcohol and Drug Abuse Patient Records regulations: The Federal rules restrict any use of the information to criminally investigate or prosecute any alcohol or drug abuse patient.[facility] HospitalIn the event this information is protected by the Federal Confidentiality of Alcohol and Drug Abuse Patient Records regulations: The Federal rules restrict any use of the information to criminally investigate or prosecute any alcohol or drug abuse patient.[facility] HospitalIn the event this information is protected by the Federal Confidentiality of Alcohol and Drug Abuse Patient Records regulations: The Federal rules restrict any use of the information to criminally investigate or prosecute any alcohol or drug abuse patient.[facility] HospitalIn the event this information is protected by the Federal Confidentiality of Alcohol and Drug Abuse Patient Records regulations: The Federal rules restrict any use of the information to criminally investigate or prosecute any alcohol or drug abuse patient.[facility] HospitalIn the event this information is protected by the Federal Confidentiality of Alcohol and Drug Abuse Patient Records regulations: The Federal rules restrict any use of the information to criminally investigate or prosecute any alcohol or drug abuse patient.[facility] HospitalIn the event this information is protected by the Federal Confidentiality of Alcohol and Drug Abuse Patient Records regulations: The Federal rules restrict any use of the information to criminally investigate or prosecute any alcohol or drug abuse patient.[facility] HospitalIn the event this information is protected by the Federal Confidentiality of Alcohol and Drug Abuse Patient Records regulations: The Federal rules restrict any use of the information to criminally investigate or prosecute any alcohol or drug abuse patient.[facility] HospitalIn the event this information is protected by the Federal Confidentiality of Alcohol and Drug Abuse Patient Records regulations: The Federal rules restrict any use of the information to criminally investigate or prosecute any alcohol or drug abuse patient.[facility] HospitalIn the event this information is protected by the Federal Confidentiality of Alcohol and Drug Abuse Patient Records regulations: The Federal rules restrict any use of the information to criminally investigate or prosecute any alcohol or drug abuse patient.[facility] HospitalIn the event this information is protected by the Federal Confidentiality of Alcohol and Drug Abuse Patient Records regulations: The Federal rules restrict any use of the information to criminally investigate or prosecute any alcohol or drug abuse patient.[facility] HospitalIn the event this information is protected by the Federal Confidentiality of Alcohol and Drug Abuse Patient Records regulations: The Federal rules restrict any use of the information to criminally investigate or prosecute any alcohol or drug abuse patient.[facility] HospitalIn the event this information is protected by the Federal Confidentiality of Alcohol and Drug Abuse Patient Records regulations: The Federal rules restrict any use of the information to criminally investigate or prosecute any alcohol or drug abuse patient.[facility] HospitalIn the event this information is protected by the Federal Confidentiality of Alcohol and Drug Abuse Patient Records regulations: The Federal rules restrict any use of the information to criminally investigate or prosecute any alcohol or drug abuse patient.[facility] HospitalIn the event this information is protected by the Federal Confidentiality of Alcohol and Drug Abuse Patient Records regulations: The Federal rules restrict any use of the information to criminally investigate or prosecute any alcohol or drug abuse patient.[facility] HospitalIn the event this information is protected by the Federal Confidentiality of Alcohol and Drug Abuse Patient Records regulations: The Federal rules restrict any use of the information to criminally investigate or prosecute any alcohol or drug abuse patient.[facility] HospitalIn the event this information is protected by the Federal Confidentiality of Alcohol and Drug Abuse Patient Records regulations: The Federal rules restrict any use of the information to criminally investigate or prosecute any alcohol or drug abuse patient.[facility] HospitalIn the event this information is protected by the Federal Confidentiality of Alcohol and Drug Abuse Patient Records regulations: The Federal rules restrict any use of the information to criminally investigate or prosecute any alcohol or drug abuse patient.[facility] HospitalIn the event this information is protected by the Federal Confidentiality of Alcohol and Drug Abuse Patient Records regulations: The Federal rules restrict any use of the information to criminally investigate or prosecute any alcohol or drug abuse patient.[facility] HospitalIn the event this information is protected by the Federal Confidentiality of Alcohol and Drug Abuse Patient Records regulations: The Federal rules restrict any use of the information to criminally investigate or prosecute any alcohol or drug abuse patient.[facility] HospitalIn the event this information is protected by the Federal Confidentiality of Alcohol and Drug Abuse Patient Records regulations: The Federal rules restrict any use of the information to criminally investigate or prosecute any alcohol or drug abuse patient.[facility] HospitalIn the event this information is protected by the Federal Confidentiality of Alcohol and Drug Abuse Patient Records regulations: The Federal rules restrict any use of the information to criminally investigate or prosecute any alcohol or drug abuse patient.[facility] HospitalIn the event this information is protected by the Federal Confidentiality of Alcohol and Drug Abuse Patient Records regulations: The Federal rules restrict any use of the information to criminally investigate or prosecute any alcohol or drug abuse patient.[facility] HospitalIn the event this information is protected by the Federal Confidentiality of Alcohol and Drug Abuse Patient Records regulations: The Federal rules restrict any use of the information to criminally investigate or prosecute any alcohol or drug abuse patient.[facility] HospitalIn the event this information is protected by the Federal Confidentiality of Alcohol and Drug Abuse Patient Records regulations: The Federal rules restrict any use of the information to criminally investigate or prosecute any alcohol or drug abuse patient.[facility] HospitalIn the event this information is protected by the Federal Confidentiality of Alcohol and Drug Abuse Patient Records regulations: The Federal rules restrict any use of the information to criminally investigate or prosecute any alcohol or drug abuse patient.[facility] HospitalIn the event this information is protected by the Federal Confidentiality of Alcohol and Drug Abuse Patient Records regulations: The Federal rules restrict any use of the information to criminally investigate or prosecute any alcohol or drug abuse patient.[facility] ClinicIn the event this information is protected by the Federal Confidentiality of Alcohol and Drug Abuse Patient Records regulations: The Federal rules restrict any use of the information to criminally investigate or prosecute any alcohol or drug abuse patient.[facility] HospitalIn the event this information is protected by the Federal Confidentiality of Alcohol and Drug Abuse Patient Records regulations: The Federal rules restrict any use of the information to criminally investigate or prosecute any alcohol or drug abuse patient.[facility] HospitalIn the event this information is protected by the Federal Confidentiality of Alcohol and Drug Abuse Patient Records regulations: The Federal rules restrict any use of the information to criminally investigate or prosecute any alcohol or drug abuse patient.[facility] HospitalIn the event this information is protected by the Federal Confidentiality of Alcohol and Drug Abuse Patient Records regulations: The Federal rules restrict any use of the information to criminally investigate or prosecute any alcohol or drug abuse patient.[facility] HospitalIn the event this information is protected by the Federal Confidentiality of Alcohol and Drug Abuse Patient Records regulations: The Federal rules restrict any use of the information to criminally investigate or prosecute any alcohol or drug abuse patient.[facility] HospitalIn the event this information is protected by the Federal Confidentiality of Alcohol and Drug Abuse Patient Records regulations: The Federal rules restrict any use of the information to criminally investigate or prosecute any alcohol or drug abuse patient.[facility] HospitalIn the event this information is protected by the Federal Confidentiality of Alcohol and Drug Abuse Patient Records regulations: The Federal rules restrict any use of the information to criminally investigate or prosecute any alcohol or drug abuse patient.[facility] HospitalIn the event this information is protected by the Federal Confidentiality of Alcohol and Drug Abuse Patient Records regulations: The Federal rules restrict any use of the information to criminally investigate or prosecute any alcohol or drug abuse patient.[facility] HospitalIn the event this information is protected by the Federal Confidentiality of Alcohol and Drug Abuse Patient Records regulations: The Federal rules restrict any use of the information to criminally investigate or prosecute any alcohol or drug abuse patient.[facility] HospitalIn the event this information is protected by the Federal Confidentiality of Alcohol and Drug Abuse Patient Records regulations: The Federal rules restrict any use of the information to criminally investigate or prosecute any alcohol or drug abuse patient.[facility] HospitalIn the event this information is protected by the Federal Confidentiality of Alcohol and Drug Abuse Patient Records regulations: The Federal rules restrict any use of the information to criminally investigate or prosecute any alcohol or drug abuse patient.[facility] HospitalIn the event this information is protected by the Federal Confidentiality of Alcohol and Drug Abuse Patient Records regulations: The Federal rules restrict any use of the information to criminally investigate or prosecute any alcohol or drug abuse patient.[facility] HospitalIn the event this information is protected by the Federal Confidentiality of Alcohol and Drug Abuse Patient Records regulations: The Federal rules restrict any use of the information to criminally investigate or prosecute any alcohol or drug abuse patient.[facility] HospitalIn the event this information is protected by the Federal Confidentiality of Alcohol and Drug Abuse Patient Records regulations: The Federal rules restrict any use of the information to criminally investigate or prosecute any alcohol or drug abuse patient.[facility] HospitalIn the event this information is protected by the Federal Confidentiality of Alcohol and Drug Abuse Patient Records regulations: The Federal rules restrict any use of the information to criminally investigate or prosecute any alcohol or drug abuse patient.[facility] HospitalIn the event this information is protected by the Federal Confidentiality of Alcohol and Drug Abuse Patient Records regulations: The Federal rules restrict any use of the information to criminally investigate or prosecute any alcohol or drug abuse patient.[facility] HospitalIn the event this information is protected by the Federal Confidentiality of Alcohol and Drug Abuse Patient Records regulations: The Federal rules restrict any use of the information to criminally investigate or prosecute any alcohol or drug abuse patient.[facility] HospitalIn the event this information is protected by the Federal Confidentiality of Alcohol and Drug Abuse Patient Records regulations: The Federal rules restrict any use of the information to criminally investigate or prosecute any alcohol or drug abuse patient.[facility] HospitalIn the event this information is protected by the Federal Confidentiality of Alcohol and Drug Abuse Patient Records regulations: The Federal rules restrict any use of the information to criminally investigate or prosecute any alcohol or drug abuse patient.[facility] HospitalIn the event this information is protected by the Federal Confidentiality of Alcohol and Drug Abuse Patient Records regulations: The Federal rules restrict any use of the information to criminally investigate or prosecute any alcohol or drug abuse patient.[facility] HospitalIn the event this information is protected by the Federal Confidentiality of Alcohol and Drug Abuse Patient Records regulations: The Federal rules restrict any use of the information to criminally investigate or prosecute any alcohol or drug abuse patient.[facility] HospitalIn the event this information is protected by the Federal Confidentiality of Alcohol and Drug Abuse Patient Records regulations: The Federal rules restrict any use of the information to criminally investigate or prosecute any alcohol or drug abuse patient.[facility] HospitalIn the event this information is protected by the Federal Confidentiality of Alcohol and Drug Abuse Patient Records regulations: The Federal rules restrict any use of the information to criminally investigate or prosecute any alcohol or drug abuse patient.[facility] HospitalIn the event this information is protected by the Federal Confidentiality of Alcohol and Drug Abuse Patient Records regulations: The Federal rules restrict any use of the information to criminally investigate or prosecute any alcohol or drug abuse patient.[facility] HospitalIn the event this information is protected by the Federal Confidentiality of Alcohol and Drug Abuse Patient Records regulations: The Federal rules restrict any use of the information to criminally investigate or prosecute any alcohol or drug abuse patient.[facility] HospitalIn the event this information is protected by the Federal Confidentiality of Alcohol and Drug Abuse Patient Records regulations: The Federal rules restrict any use of the information to criminally investigate or prosecute any alcohol or drug abuse patient.[facility] HospitalIn the event this information is protected by the Federal Confidentiality of Alcohol and Drug Abuse Patient Records regulations: The Federal rules restrict any use of the information to criminally investigate or prosecute any alcohol or drug abuse patient.[facility] HospitalIn the event this information is protected by the Federal Confidentiality of Alcohol and Drug Abuse Patient Records regulations: The Federal rules restrict any use of the information to criminally investigate or prosecute any alcohol or drug abuse patient.[facility] HospitalIn the event this information is protected by the Federal Confidentiality of Alcohol and Drug Abuse Patient Records regulations: The Federal rules restrict any use of the information to criminally investigate or prosecute any alcohol or drug abuse patient.[facility] HospitalIn the event this information is protected by the Federal Confidentiality of Alcohol and Drug Abuse Patient Records regulations: The Federal rules restrict any use of the information to criminally investigate or prosecute any alcohol or drug abuse patient.[facility] HospitalIn the event this information is protected by the Federal Confidentiality of Alcohol and Drug Abuse Patient Records regulations: The Federal rules restrict any use of the information to criminally investigate or prosecute any alcohol or drug abuse patient.[facility] HospitalIn the event this information is protected by the Federal Confidentiality of Alcohol and Drug Abuse Patient Records regulations: The Federal rules restrict any use of the information to criminally investigate or prosecute any alcohol or drug abuse patient.[facility] HospitalIn the event this information is protected by the Federal Confidentiality of Alcohol and Drug Abuse Patient Records regulations: The Federal rules restrict any use of the information to criminally investigate or prosecute any alcohol or drug abuse patient.[facility] HospitalIn the event this information is protected by the Federal Confidentiality of Alcohol and Drug Abuse Patient Records regulations: The Federal rules restrict any use of the information to criminally investigate or prosecute any alcohol or drug abuse patient.[facility] HospitalIn the event this information is protected by the Federal Confidentiality of Alcohol and Drug Abuse Patient Records regulations: The Federal rules restrict any use of the information to criminally investigate or prosecute any alcohol or drug abuse patient.[facility] HospitalIn the event this information is protected by the [facility] Confidentiality of Alcohol and Drug Abuse Patient Records regulations: The Federal rules restrict any use of the information to criminally investigate or prosecute any alcohol or drug abuse patient.[facility] HospitalIn the event this information is protected by the Federal Confidentiality of Alcohol and Drug Abuse Patient Records regulations: The Federal rules restrict any use of the information to criminally investigate or prosecute any alcohol or drug abuse patient.[facility] INFORMATION SOURCE (unrecogn ized section and content) DATE CREATED AUTHOR 12/04/2021 [facility] DATE CREATED AUTHOR AUTHOR'S ORGANIZ ATION 10/09/2022 [facility] ([place]) DATE CREATED AUTHOR AUTHOR'S ORGANIZ ATION 11/25/2024 [facility] DATE CREATED AUTHOR AUTHOR'S ORGANIZ ATION 04/27/2025 [facility] DATE CREATED AUTHOR AUTHOR'S ORGANIZ ATION 08/14/2025 [facility] DATE CREATED AUTHOR AUTHOR'S ORGANIZ ATION 08/22/2025 [facility] DATE CREATED AUTHOR AUTHOR'S ORGANIZ ATION 09/04/2025 [facility] Goals (unrecognized section and content) Goals may be documented in a n alternate sectionGoals may be documented in an alternate section No data available for this sectionGoals may be documented in an alternate section No data available for this sectionGoals may be documented in an alternate sectionGoals may be documented in an alternate section Care Teams (unrecognized sec tion and content) Respiratory Support Technician Relationship Specialty Start Date End Date Hollie Ballard MD [address] [facility] [place] [address] PCP - General Family Practice 08/29/13 Respiratory Support Technician Relationship Specialty Start Date End Date Hollie Ballard MD [address] [facility] [place] [address] PCP - General Family Practice 08/29/13 Respiratory Support Technician Relationship Specialty Start Date End Date Hollie Ballard MD [address] [facility] [place] [address] PCP - General Family Practice 08/29/13 Respiratory Support Technician Relationship Specialty Start Date End Date Hollie Ballard MD [address] [facility] [place] [address] PCP - General Family Practice 08/29/13 Respiratory Support Technician Relationship Specialty Start Date End Date Hollie Ballard MD [address] [facility] [place] [address] PCP - General Family Practice 08/29/13 Respiratory Support Technician Relationship Specialty Start Date End Date Hollie Ballard MD [address] [place] [address] PCP - General Family Medicine 08/29/13 Respiratory Support Technician Relationship Specialty Start Date End Date Hollie Ballard MD [address] [facility] [place] [address] PCP - General Family Medicine 08/29/13 Respiratory Support Technician Relationship Specialty Start Date End Date Hollie Ballard MD [address] [facility] [place] [address] PCP - General Family Medicine 08/29/13 Respiratory Support Technician Relationship Specialty Start Date End Date Hollie Ballard MD [address] [facility] [place] [address] PCP - General Family Medicine 08/29/13 Respiratory Support Technician Relationship Specialty Start Date End Date Hollie Ballard MD [address] [facility] [place] [address] PCP - General Family Medicine 08/29/13 Respiratory Support Technician Relationship Specialty Start Date End Date Hollie Ballard MD [address] [facility] [place] [address] PCP - General Family Medicine 08/29/13 Respiratory Support Technician Relationship Specialty Start Date End Date Hollie Ballard MD [address] [facility] [place] [address] PCP - General Family Medicine 08/29/13 Respiratory Support Technician Relationship Specialty Start Date End Date Hollie Ballard MD [address] [facility] [place] [address] PCP - General Family Medicine 08/29/13 Respiratory Support Technician Relationship Specialty Start Date End Date Hollie Ballard MD [address] [facility] [place] [address] PCP - General Family Medicine 08/29/13 Respiratory Support Technician Relationship Specialty Start Date End Date Hollie Ballard MD [address] [facility] [place] [address] PCP - General Family Medicine 08/29/13 Respiratory Support Technician Relationship Specialty Start Date End Date Hollie Ballard MD [address] [facility] [place] [address] PCP - General Family Medicine 08/29/13 Respiratory Support Technician Relationship Specialty Start Date End Date Hollie Ballard MD [address] [facility] [place] [address] PCP - General Family Medicine 08/29/13 Respiratory Support Technician Relationship Specialty Start Date End Date Hollie Ballard MD [address] [place] [address] PCP - General Family Medicine 08/29/13 Respiratory Support Technician Relationship Specialty Start Date End Date Hollie Ballard MD [address] [place] [address] PCP - General Family Medicine 08/29/13 Respiratory Support Technician Relationship Specialty Start Date End Date Hollie Ballard MD [address] [place] [address] PCP - General Family Medicine 08/29/13 Respiratory Support Technician Relationship Specialty Start Date End Date Hollie Ballard MD [address] [place] [address] PCP - General Family Medicine 08/29/13 Team Status: Active Member Role Status Dates No Primary Care Physician Family Provider Active Dr. Hollie Ballard MD Primary Care Provider Active Team Status: Inactive Member Role Status Dates Dr. Hollie Ballard MD Primary Care Provider Active Dr. Andre Phan DO Emergency Provider Active Respiratory Support Technician Relationship Specialty Start Date End Date Hollie Ballard MD [address] [place] [address] PCP - General Family Medicine 08/29/13 Respiratory Support Technician Relationship Specialty Start Date End Date Hollie Ballard MD [address] [place] [address] PCP - General Family Medicine 08/29/13 Respiratory Support Technician Relationship Specialty Start Date End Date Hollie Ballard MD [address] [place] [address] PCP - General Family Medicine 08/29/13 Respiratory Support Technician Relationship Specialty Start Date End Date Hollie Ballard MD [address] [place] [address] PCP - General Family Medicine 08/29/13 Respiratory Support Technician Relationship Specialty Start Date End Date Hollie Ballard MD [address] [place] [address] PCP - General Family Medicine 08/29/13 Respiratory Support Technician Relationship Specialty Start Date End Date Hollie Ballard MD [address] [place] [address] PCP - General Family Medicine 08/29/13 Respiratory Support Technician Relationship Specialty Start Date End Date Hollie Ballard MD [address] [place] [address] PCP - General Family Medicine 08/29/13 Respiratory Support Technician Relationship Specialty Start Date End Date Hollie Ballard MD [address] [place] [address] PCP - General Family Medicine 08/29/13 Respiratory Support Technician Relationship Specialty Start Date End Date Hollie Ballard MD [address] [place] [address] PCP - General Family Medicine 08/29/13 Respiratory Support Technician Relationship Specialty Start Date End Date Hollie Ballard MD [address] [place] [address] PCP - General Family Medicine 08/29/13 Respiratory Support Technician Relationship Specialty Start Date End Date Hollie Ballard MD [address] [facility] [place] [address] PCP - General Family Medicine 08/29/13 Respiratory Support Technician Relationship Specialty Start Date End Date Hollie Ballard MD [address] [facility] [place] [address] PCP - General Family Medicine 08/29/13 Respiratory Support Technician Relationship Specialty Start Date End Date Hollie Ballard MD [address] [facility] [place] [address] PCP - General Family Medicine 08/29/13 Respiratory Support Technician Relationship Specialty Start Date End Date Hollie Ballard MD [address] [facility] [place] [address] PCP - General Family Medicine 08/29/13 Respiratory Support Technician Relationship Specialty Start Date End Date Hollie Ballard MD [address] [facility] [place] [address] PCP - General Family Medicine 08/29/13 Respiratory Support Technician Relationship Specialty Start Date End Date Hollie Ballard MD [address] [facility] [place] [address] PCP - General Family Medicine 08/29/13 Respiratory Support Technician Relationship Specialty Start Date End Date Hollie Ballard MD [address] [facility] [place] [address] PCP - General Family Medicine 08/29/13 Respiratory Support Technician Relationship Specialty Start Date End Date Hollie Ballard MD [address] [facility] [place] [address] PCP - General Family Medicine 08/29/13 Respiratory Support Technician Relationship Specialty Start Date End Date Hollie Ballard MD [address] [facility] [place] [address] PCP - General Family Medicine 08/29/13 Radha Garduno APRN.FRANCHISE DEVELOPMENT MANAGER [address] [place] [address] Associate Veterinarian Family Medicine 10/10/24 Syl Tai APRN.FRANCHISE DEVELOPMENT MANAGER [address] [facility] [place] [address] Associate Veterinarian Family Medicine 10/10/24 Respiratory Support Technician Relationship Specialty Start Date End Date Hollie Ballard MD [address] [facility] [place] [address] PCP - General Family Medicine 08/29/13 Radha Garduno APRN.FRANCHISE DEVELOPMENT MANAGER [address] [place] [address] Associate Veterinarian Family Medicine 10/10/24 Syl Tai APRN.FRANCHISE DEVELOPMENT MANAGER [address] [facility] [place] [address] Associate Veterinarian Family Medicine 10/10/24 Respiratory Support Technician Relationship Specialty Start Date End Date Hollie Ballard MD [address] [facility] [place] [address] PCP - General Family Medicine 08/29/13 Radha Garduno APRN.FRANCHISE DEVELOPMENT MANAGER [address] [place] [address] Associate Veterinarian Family Medicine 10/10/24 Syl Tai APRN.FRANCHISE DEVELOPMENT MANAGER [address] [place] [address] Associate Veterinarian [facility] 10/10/24 Respiratory Support Technician Relationship Specialty Start Date End Date Hollie Ballard MD [address] [facility] [place] [address] PCP - General Family Medicine 08/29/13 Radha Garduno, CARD CLOTHIER.FRANCHISE DEVELOPMENT MANAGER [address] [place] [address] Associate Veterinarian Family Medicine 10/10/24 Syl Tai CARD CLOTHIER.FRANCHISE DEVELOPMENT MANAGER [address] [place] [address] [facility] 10/10/24 Respiratory Support Technician Relationship Specialty Start Date End Date Hollie Ballard MD [address] [place] [address] PCP - General Family Medicine 08/29/13 Radha Garduno, CARD CLOTHIER.FRANCHISE DEVELOPMENT MANAGER [address] [place] [address] [facility] 10/10/24 Syl Tai CARD CLOTHIER.FRANCHISE DEVELOPMENT MANAGER [address] [place] [address] [facility] 10/10/24 Respiratory Support Technician Relationship Specialty Start Date End Date Hollie Ballard MD [address] [place] [address] PCP - General Family Medicine 08/29/13 Radha Garduno, CARD CLOTHIER.FRANCHISE DEVELOPMENT MANAGER [address] [place] [address] Associate Veterinarian [facility] 10/10/24 Syl Tai CARD CLOTHIER.FRANCHISE DEVELOPMENT MANAGER [address] [place] [address] [facility]ly [facility] 10/10/24 Respiratory Support Technician Relationship Specialty Start Date End Date Hollie Ballard MD [address] [place] [address] PCP - General Family Medicine 08/29/13 Radha Garduno CARD CLOTHIER.FRANCHISE DEVELOPMENT MANAGER [address] [place] [address] Formerly [facility] 10/10/24 Syl Tai CARD CLOTHIER.FRANCHISE DEVELOPMENT MANAGER [address] [place] [address] Formerly [facility] 10/10/24 Respiratory Support Technician Relationship Specialty Start Date End Date Hollie Ballard MD [address] [place] [address] PCP - General Family Medicine 08/29/13 Radha Garduno CARD CLOTHIER.FRANCHISE DEVELOPMENT MANAGER [address] [place] [address] Formerly [facility] 10/10/24 Syl Tai CARD CLOTHIER.FRANCHISE DEVELOPMENT MANAGER [address] [place] [address] [facility] Medicine 10/10/24 Respiratory Support Technician Relationship Specialty Start Date End Date Hollie Ballard MD [address] [place], [place] [address] [phone] PCP - General Family Medicine 08/29/13 Rdaha Garduno APRN.FRANCHISE DEVELOPMENT MANAGER [address] [facility] [address] Associate Veterinarian Family Medicine 10/10/24 Syl Tai APRN.FRANCHISE DEVELOPMENT MANAGER [address] [facility] [place] [address] Associate Veterinarian Family Medicine 10/10/24 Respiratory Support Technician Relationship Specialty Start Date End Date Hollie Ballard MD [address] [facility] [place] [address] PCP - General Family Medicine 08/29/13 Radha Garduno APRN.FRANCHISE DEVELOPMENT MANAGER [address] [place] [address] Associate Veterinarian Family Medicine 10/10/24 Syl Tai APRN.FRANCHISE DEVELOPMENT MANAGER [address] [facility] [place] [place] [address] [facility] 10/10/24 Respiratory Support Technician Relationship Specialty Start Date End Date Hollie Ballard MD [address] [facility] [place] [address] PCP - General Family Medicine 08/29/13 Radha Garduno CARD CLOTHIER.FRANCHISE DEVELOPMENT MANAGER [address] [place] [address] Associate Veterinarian Family Medicine 10/10/24 Syl Tai APRN.FRANCHISE DEVELOPMENT MANAGER [address] [facility] [place] [address] Associate Veterinarian Family Medicine 10/10/24 Respiratory Support Technician Relationship Specialty Start Date End Date Hollie Ballard MD [address] [facility] [place] [address] PCP - General Family Medicine 08/29/13 Radha Garduno APRN.FRANCHISE DEVELOPMENT MANAGER [address] [place] [address] Associate Veterinarian Family Medicine 10/10/24 Syl Tai APRN.FRANCHISE DEVELOPMENT MANAGER [address] [facility] [place] [address] Associate Veterinarian Family Medicine 10/10/24 Respiratory Support Technician Relationship Specialty Start Date End Date Hollie Ballard MD [address] [facility] [place] [address] PCP - General Family Medicine 08/29/13 Radha Garduno APRN.FRANCHISE DEVELOPMENT MANAGER [address] [place] [address] Associate Veterinarian Family Medicine 10/10/24 Syl Tai APRN.FRANCHISE DEVELOPMENT MANAGER [address] [facility] [place] [address] Associate Veterinarian [facility] 10/10/24 Respiratory Support Technician Relationship Specialty Start Date End Date Hollie Ballard MD [address] [facility] [place] [address] PCP - General Family Medicine 08/29/13 Radha Garduno APRN.FRANCHISE DEVELOPMENT MANAGER [address] [place] [address] Associate Veterinarian Family Medicine 10/10/24 Syl Tai APRN.FRANCHISE DEVELOPMENT MANAGER [address] [facility] [place] [address] Associate Veterinarian [facility] 10/10/24 Respiratory Support Technician Relationship Specialty Start Date End Date Hollie Ballard MD [address] [place] [address] PCP - General Family Medicine 08/29/13 Radha Garduno CARD CLOTHIER.FRANCHISE DEVELOPMENT MANAGER [address] [place] [address] Associate Veterinarian Family Medicine 10/10/24 Syl Tai CARD CLOTHIER.FRANCHISE DEVELOPMENT MANAGER [address] [facility] [address] Formerly [facility] 10/10/24 Respiratory Support Technician Relationship Specialty Start Date End Date Hollie Ballard MD [address] [facility] [place] [address] PCP - General Family Medicine 08/29/13 Radha Garduno CARD CLOTHIER.FRANCHISE DEVELOPMENT MANAGER [address] [place] [address] [facility] 10/10/24 Syl Tai CARD CLOTHIER.FRANCHISE DEVELOPMENT MANAGER [address] [facility] [place] [address] [facility] 10/10/24 Respiratory Support Technician Relationship Specialty Start Date End Date Hollie Ballard MD [address] [facility] [place] [address] PCP - General Family Medicine 08/29/13 Radha Garduno CARD CLOTHIER.FRANCHISE DEVELOPMENT MANAGER [address] [place] [address] Formerly [facility] 10/10/24 Syl Tai CARD CLOTHIER.FRANCHISE DEVELOPMENT MANAGER [address] [facility], [place] [address] [facility] 10/10/24 Team Status: Active Member Role Status Dates Radha Garduno ACCOUNTS PAYABLE TECHNICIAN, ACCOUNTS PAYABLE TECHNICIAN-C Primary Care Provider Active Team Status: Inactive Member Role Status Dates Dr. Hollie Ballard MD Primary Care Provider Active Start: November 27, 2024 End: November 27, 2024 Dr. Hollie Ballard MD Referring Provider Active Start: November 27, 2024 End: November 27, 2024 Reji Pelayo ACCOUNTS PAYABLE TECHNICIAN, ACCOUNTS PAYABLE TECHNICIAN-C Attending Provider Active S tart: November 27, 2024 End: November 27, 2024 Team Status: Inactive Member Role Status Dates Raleigh Escoto MD Emergency Provider Active Star t: January 11, 2025 End: January 11, 2025 Radha Garduno ACCOUNTS PAYABLE TECHNICIAN, ACCOUNTS PAYABLE TECHNICIAN-C Primary Care Provider Active Start: January 11, 2025 End: January 11, 2025 Respiratory Support Technician Relationship Specialty Start Date End Date Hollie Ballard MD [address] [place], [place] [address] PCP - General Family Medicine 08/29/13 Radha Garduno, BIBI.FRANCHISE DEVELOPMENT MANAGER [address] [place], [place] [address] Former[facility] 10/10/24 Syl Tai CARD CLOTHIER.FRANCHISE DEVELOPMENT MANAGER [address] [facility], [place] [address] Former[facility] 10/10/24 Respiratory Support Technician Relationship Specialty Start Date End Date Hollie Ballard MD [address] [facility], [place] [address] PCP - General Family Medicine 08/29/13 Radha Garduno APRN.FRANCHISE DEVELOPMENT MANAGER [address] [place] [address] Associate Veterinarian Family Medicine 10/10/24 Syl Tai APRN.FRANCHISE DEVELOPMENT MANAGER [address] [facility] [place] [address] Associate Veterinarian Family Medicine 10/10/24 Respiratory Support Technician Relationship Specialty Start Date End Date Hollie Ballard MD [address] [place] [address] PCP - General Family Medicine 08/29/13 Radha Garduno APRN.FRANCHISE DEVELOPMENT MANAGER [address] [place] [address] Associate Veterinarian Family Medicine 10/10/24 Syl Tai APRN.FRANCHISE DEVELOPMENT MANAGER [address] [place] [address] Associate Veterinarian Family Medicine 10/10/24 Respiratory Support Technician Relationship Specialty Start Date End Date Hollie Ballard MD [address] [place] [address] PCP - General Family Medicine 08/29/13 Radha Garduno APRN.FRANCHISE DEVELOPMENT MANAGER [address] [place] [address] Associate Veterinarian Family Medicine 10/10/24 Syl Tai APRN.FRANCHISE DEVELOPMENT MANAGER [address] [place] [address] Associate Veterinarian Family Medicine 10/10/24 Respiratory Support Technician Relationship Specialty Start Date End Date Hollie Ballard MD [address] [place] [address] PCP - General Family Medicine 08/29/13 Radha Garduno APRN.FRANCHISE DEVELOPMENT MANAGER [address] [place] [address] Associate Veterinarian Family Medicine 10/10/24 Syl Tai APRN.FRANCHISE DEVELOPMENT MANAGER [address] [facility] [place] [address] Associate Veterinarian Family Medicine 10/10/24 Respiratory Support Technician Relationship Specialty Start Date End Date Hollie Ballard MD [address] [facility] [place] [address] PCP - General Family Medicine 08/29/13 Radha Garduno APRN.FRANCHISE DEVELOPMENT MANAGER [address] [facility] [address] Associate Veterinarian Family Medicine 10/10/24 Syl Tai APRN.FRANCHISE DEVELOPMENT MANAGER [address] [facility] [address] Associate Veterinarian Family Medicine 10/10/24 Respiratory Support Technician Relationship Specialty Start Date End Date Hollie Ballard MD [address] [facility] [place] [address] PCP - General Family Medicine 08/29/13 Radha Garduno APRN.FRANCHISE DEVELOPMENT MANAGER [address] [facility] [address] Associate Veterinarian Family Medicine 10/10/24 Syl Tai APRN.FRANCHISE DEVELOPMENT MANAGER [address] [facility] [place] [address] Associate Veterinarian Family Medicine 10/10/24 Respiratory Support Technician Relationship Specialty Start Date End Date Hollie Ballard MD [address] [facility] [place] [address] PCP - General Family Medicine 08/29/13 Radha Garduno CARD CLOTHIER.FRANCHISE DEVELOPMENT MANAGER [address] [facility] [address] [facility] 10/10/24 Syl Tai CARD CLOTHIER.FRANCHISE DEVELOPMENT MANAGER [address] [facility] [place] [address] Formerly [facility] 10/10/24 Respiratory Support Technician Relationship Specialty Start Date End Date Hollie Ballard MD [address] [facility] [place] [address] PCP - General Family Medicine 08/29/13 Radha Garduno CARD CLOTHIER.FRANCHISE DEVELOPMENT MANAGER [address] [facility] [address] Formerly [facility] 10/10/24 Syl Tai CARD CLOTHIER.FRANCHISE DEVELOPMENT MANAGER [address] [facility] [place] [address] Formerly [facility] 10/10/24 Respiratory Support Technician Relationship Specialty Start Date End Date Hollie Ballard MD [address] [facility] [place] [address] PCP - General Family Medicine 08/29/13 Radha Garduno CARD CLOTHIER.FRANCHISE DEVELOPMENT MANAGER [address] [place] [address] Formerly [facility] 10/10/24 Syl Tai CARD CLOTHIER.FRANCHISE DEVELOPMENT MANAGER [address] [facility] [place] [address] [facility] 10/10/24 Respiratory Support Technician Relationship Specialty Start Date End Date Hollie Ballard MD [address] [facility] [place] [address] PCP - General Family Medicine 08/29/13 Radha Garduno APRN.FRANCHISE DEVELOPMENT MANAGER [address] [place] [address] [facility] 10/10/24 Syl Tai APRN.FRANCHISE DEVELOPMENT MANAGER [address] [facility] [place] [address] Formerly [facility] 10/10/24 Respiratory Support Technician Relationship Specialty Start Date End Date Hollie Ballard MD [address] [facility] [place] [address] PCP - General Family Medicine 08/29/13 Radha Garduno CARD CLOTHIER.FRANCHISE DEVELOPMENT MANAGER [address] [place] [address] [facility] 10/10/24 Syl Tai APRN.FRANCHISE DEVELOPMENT MANAGER [address] [facility] [place] [address] Associate [facility] 10/10/24 Respiratory Support Technician Relationship Specialty Start Date End Date Hollie Ballard MD [address] [facility] [place] [address] PCP - General Family Medicine 08/29/13 Radha Garduno CARD CLOTHIER.FRANCHISE DEVELOPMENT MANAGER [address] [place] [address] Associate Veterinarian Family Medicine 10/10/24 Syl Tai APRN.FRANCHISE DEVELOPMENT MANAGER [address] [facility] [place] [address] Associate Veterinarian Family Medicine 10/10/24 Respiratory Support Technician Relationship Specialty Start Date End Date Hollie Ballard MD [address] [place] [address] PCP - General Family Medicine 08/29/13 Radha Garduno APRN.FRANCHISE DEVELOPMENT MANAGER [address] [place] [address] Associate Veterinarian Family Medicine 10/10/24 Syl Tai CARD CLOTHIER.FRANCHISE DEVELOPMENT MANAGER [address] [place] [address] Associate Veterinarian [facility] 10/10/24 Respiratory Support Technician Relationship Specialty Start Date End Date Hollie Ballard MD [address] [place] [address] PCP - General Family Medicine 08/29/13 Radha Garduno CARD CLOTHIER.FRANCHISE DEVELOPMENT MANAGER [address] [place] [address] Associate Veterinarian [facility] 10/10/24 Syl Tai CARD CLOTHIER.FRANCHISE DEVELOPMENT MANAGER [address] [place] [address] Associate Veterinarian [facility] 10/10/24 Respiratory Support Technician Relationship Specialty Start Date End Date Hollie Ballard MD [address] [place] [address] PCP - General Family Medicine 08/29/13 Radha Garduno APRN.FRANCHISE DEVELOPMENT MANAGER [address] [place], [place] [address] [facility] 10/10/24 Syl Tai APRN.FRANCHISE DEVELOPMENT MANAGER [address] [place] [address] [facility] 10/10/24 Reason for Visit (unrecogniz ed section and content) Reason Comments Physical Therapy Specialty Diagnoses / Procedures Referred By Contac t Referred To Contact PHYSICAL THERAPY Diagnoses Pain of left hip Procedures PHYSICAL THERAPY EVALUATION HIGH COMPLEX 45 MINS Maggy Hayes PA-C [address] [place] [address] Phone: tel: fax: Macey Kaiser, PT Referral ID Status Reason Start Date Expiration Date Visits Requested Visits Authorized [id number] Authorized Auto-Generat ed Referral 11/02/2024 11/01/2025 45 45 Reason Comments PT Progress Note Specialty Diagnoses / Procedures Referred By Contac t Referred To Contact PHYSICAL THERAPY Diagnoses Pain of left hip Procedures CONSULT TO PHYSICAL THERAPY PHYSICAL THERAPY EVALUATION HIGH COMPLEX 45 MINS Maggy Hayes PA-C [address] [place] [address] Phone: tel: fax: Macey Kaiser, PT Reason Comments PT Eval Reason Comments Physical Therapy PT Discharge Specialty Diagnoses / Procedures Referred By Contac t Referred To Contact [facility] Diagnoses Acute left-sided low back pain with left-sided sciatica Left hip pain Procedures CONSULT TO PHYSICAL THERAPY PHYSICAL THERAPY EVALUATION HIGH COMPLEX 45 MINS Radha Garduno, CARD CLOTHIER.FRANCHISE DEVELOPMENT MANAGER [address] [place] [address] [facility] [place] [address] [place] [address] Referral ID Status Reason Start Date Expiration Date Visits Requested Visits Authorized [id number] Authorized Auto-Generat ed Referral 11/02/2023 11/01/2024 45 45 Reason Comments PT Progress Note Physical Therapy Reason Comments Results Reason Comments Headache nausea, ear pain, th roat feels like something in it x 1 day Specialty Diagnoses / Procedures Referred By Contac t Referred To Contact Internal Medicine / [facility] Diagnoses Headache feels like something is stuck in throat, headache, nauseous, ear pain Procedures OFFICE/OUTPATIENT ESTABLISHED MOD MDM 30-39 MIN EST SAME DAY MD Missy Doherty [facility] [address] [phone] Referral ID Status Reason Start Date Expiration Date Visits Re quested Visits Authorized [id number] Closed 05/19/2022 11/01/2022 1 1 Reason Comments Headache Specialty Diagnoses / Procedures Referred By Contac t Referred To Contact Family Practice / FAMILY MEDICINE Diagnoses Headaches. Discuss poss treatment plan Procedures OFFICE/OUTPATIENT ESTABLISHED MOD MDM 30-39 MIN 4C EST SelfMD Scot M Gregory, PA-C [address] [phone] Referral ID Status Reason Start Date Expiration Date Visits Re quested Visits Authorized [id number] Closed 06/24/2022 11/01/2022 1 1 Reason Comments ER F/U ER follow up ([facility] [place] and [facility]) in August dx: abd pain- LLQ Specialty Diagnoses / Procedures Referred By Contac t Referred To Contact Family Medicine / FAMILY MEDICINE Diagnoses PE (physical exam), routine physical Procedures OFFICE/OUTPATIENT ESTABLISHED MOD MDM 30-39 MIN 4C EST WELL Self Radha Garduno APRN.FRANCHISE DEVELOPMENT MANAGER [address] [phone] Referral ID Status Reason Start Date Expiration Date Visits Re quested Visits Authorized [id number] Closed 10/20/2022 11/01/2022 1 1 Reason Onset Date Comments Refill Request 01/04/2023 Reason Comments Pain Left hip pain x 2 we eks Specialty Diagnoses / Procedures Referred By Contac t Referred To Contact Family [facility] / [facility] Diagnoses Pain in left hip pain in left hip Procedures OFFICE/OUTPATIENT ESTABLISHED MOD MDM 30-39 MIN EST SAME DAY Hollie Ballard MD [address] [place] [address] Josh Johnson MD [address] [place] [address] Referral ID Status Reason Start Date Expiration Date Visits Re quested Visits Authorized [id number] Closed 01/26/2023 11/01/2023 1 1 Specialty Diagnoses / Procedures Referred By Contac t Referred To Contact Family Medicine / FAMILY MEDICINE Diagnoses Hip pain hip pain not getting better Procedures OFFICE/OUTPATIENT ESTABLISHED MOD MDM 30-39 MIN 4C EST Self Sharon Ellison PA-C [address] [place] [address] Referral ID Status Reason Start Date Expiration Date Visits Re quested Visits Authorized [id number] Closed 02/02/2023 11/01/2023 1 1 Reason Onset Date Comments Refill Request 04/14/2023 Reason Comments Abdominal Pain Specialty Diagnoses / Procedures Referred By Contac t Referred To Contact Family Medicine / FAMILY MEDICINE Diagnoses Abdominal pain Recurrent lied side abdominal pain. Procedures OFFICE/OUTPATIENT ESTABLISHED MOD [facility] 30-39 MIN 4C EST Self Radha Garduno APRN.FRANCHISE DEVELOPMENT MANAGER [address] [phone] Referral ID Status Reason Start Date Expiration Date Visits Re quested Visits Authorized [id number] Closed 04/20/2023 11/01/2023 1 1 Reason Onset Date Comments Refill Request 09/27/2023 Reason Comments Acute Visit Stomach pain x3 days ; no vomiting, diarrhea, fever Reason Comments Radiology US Specialty Diagnoses / Procedures Referred By Contac t Referred To Contact US IMAGING Diagnoses Pain of upper abdomen Procedures US ABD RIGHT UPPER QUADRANT US ABDOMINAL REAL TIME W/IMAGE LIMITED Radha Garduno APRN.FRANCHISE DEVELOPMENT MANAGER [address] [place] [address] [place] [address] Referral ID Status Reason Start Date Expiration Date V isits Requested Visits Authorized [id number] Closed Auto-Generate d Referral 12/15/2023 01/13/2025 1 1 Reason Comments Back Pain Right upper chest pa in and upper back pain x 2 days Reason Comments ER F/U [facility] ER 01/20/24 dx: c hest pain Reason Comments Follow Up EGD & Colon Reason Comments Pain, Back Reason Comments Recheck Follow up- L leg/hip pain; not getting any better Specialty Diagnoses / Procedures Referred By Gina t Referred To Contact XR IMAGING Diagnoses Acute hip pain, left Procedures XR HIP GENERAL 3V PELV/AP/LAT LEFT RADEX HIP UNILATERAL WITH PELVIS 2-3 VIEWS Josh Johnson MD [address] [place] [address] [place] [address] Referral ID Status Reason Start Date Expiration Date V isits Requested Visits Authorized [id number] Closed Auto-Generate d Referral 01/26/2023 11/01/2023 1 1 Reason Comments Pre op GI CALL Reason Comments 02/08/2024 colon meza Waitlist Maintenance Reason Comments New Pain Reason Comments Ear Problem Pain in right ear x 2 days worsening Specialty Diagnoses / Procedures Referred By Gina t Referred To Contact MR IMAGING Diagnoses Pain of left hip Procedures MRI HIP WO IVCON LEFT MRI ANY JT LOWER EXTREM W/O CONTRAST DENNISL Maggy Hayes, DUNG [address] [place] [address] [place] [address] Referral ID Status Reason Start Date Expiration Date V isits Requested Visits Authorized [id number] Closed Auto-Generate d Referral 09/12/2024 03/11/2025 1 1 Reason Comments Established Patient Follow Up Reason Comments Appointment Specialty Diagnoses / Procedures Referred By Gina t Referred To Contact Diagnoses Pain of left hip Procedures ARTHROCENTESIS ASPIR&/INJ MAJOR JT/BURSA W/O US INJECT HIP LEFT [facility] [address] [place] [address] Referral ID Status Reason Start Date Expiration Date Visits Re quested Visits Authorized [id number] 1 1 Reason Comments URI Patient reports jacqueline griffin 2 weeks ago went [facility] and placed on ATB Thursday. Reports she is getting worse vs better Cough Head Congestion Headache back ache Chest Pain Reason Comments Recheck Follow up from selvin guerin, not feeling any better Reason Onset Date Comments Refill Request 12/15/2024 Reason Comments Yearly Exam Reason Comments Injections New Reason Comments Acute Visit Lingering cough Reason Comments ER F/U [facility] 01/11/25 DX: Ches t pain, facial pain, Trigeminal neuralgia, leukocytosis Reason Comments Radiology US Specialty Diagnoses / Procedures Referred By Contac t Referred To Contact US IMAGING Diagnoses RUQ pain Procedures US ABD RIGHT UPPER QUADRANT US ABDOMINAL REAL TIME W/IMAGE LIMITED Syl Tai, CARD CLOTHIER.FRANCHISE DEVELOPMENT MANAGER [address] [place] [address] Phone: tel: fax: [place] [address] Referral ID Status Reason Start Date Expiration Date V isits Requested Visits Authorized [id number] Closed Auto-Generate d Referral 01/19/2025 02/11/2026 1 1 Reason Onset Date Comments Results - Ct 01/26/[address] Specialty Diagnoses / Procedures Referred By Contac t Referred To Contact CT IMAGING Diagnoses Atypical facial pain Procedures CT BRAIN WO IVCON CT HEAD/BRAIN W/O CONTRAST MATERIAL Syl Tai, CARD CLOTHIER.[facility] [address] [place] [address] Phone: tel: fax: [place] [address] Referral ID Status Reason Start Date Expiration Date V isits Requested Visits Authorized [id number] Closed Auto-Generate d Referral 01/13/2025 07/12/2025 1 1 Reason Comments Follow Up Reason Comments Low Back Pain Chronic L hip pain, low back pain started at work today with lifting, fever Reason Comments Established Patient Follow Up Pain Reason Onset Date Comments Refill Request 03/17/2025 Reason Comments New Pain Reason Comments Distance Education Faculty Liaison - Other Schedule Surgery Preparations For Surgery Reason Comments Pre-Op Visit Reason Comments Post Op DOS 04/26/2025 Reason Comments Pain Post Op Reason Onset Date Comments Refill Request 07/04/2025 Care Team (unrecognized sect ion and content) Care Team Personnel Name: HOLLIE BALLARD MD Member Role: Primary Care Physician Address: Address: [facility] [address] [id number] Name: YASMEEN Saldivar Position: AO RN Member Role: ED RN Name: MD PAZ TIMOTHY MD Position: ED Physician Member Role: ED Physician Address: Address: [address] [place], [place] [address] [address]- Care Team Personnel Name: HOLLIE BALLARD MD Member Role: Primary Care Physician Address: Address: [facility] [address] [place] [address]- Name: YASMEEN Ricketts Position: AO RN Member Role: ED RN Name: TRESSA VERA DO Position: ED Physician Member Role: Attending Physician Address: Address: [address] [place] [address] [place] [address]- Name: ADELSO AVILA DO Position: Resident Member Role: ED Physician Address: Address: [address] [place] [address] [place] [address]- Care Team Related Persons Name: TAVON NANCY Weeks Address: Home [address] [place] [address] Inactive Administered Medications - up to 3 most recent administrations Administered Medications (un recognized section and content) Medication Order MAR Action Action Date Dose Rate Site lactated ringers iv infusion 30 mL/hr, INTRAVENOUS, CONTINUOUS, Starting on Thu02/08/24 at 0630, Until Thu02/08/24 at 0810, Preprocedure New Bag/Syringe/Bottle 02/08/2024 6:29 AM EDT 30 mL/hr 30 mL/hr PRN Active and Recently Administ ered Medications (unrecognized section and content) Medication Order 11/21/2024 11/22/2024 11/23/2024 lidocaine (PF) 10 mg/mL (1 %) injection (XYLOCAINE) (COMPLETED) SUBCUTANEOUS, X (OR/PROCEDURE) PRN, Starting on Thu11/23/24 at 1109, Until Thu11/23/24 at 1109, Intraprocedure 1109 (Given - Provid er: Bjorn Sanchez APRN.FRANCHISE DEVELOPMENT MANAGER - Comment: numbing) FOR RECORDS PERTAINING TO PATIENTS WHO ARE OR HAVE BEEN ENROLLED IN A CHEMICAL DEPENDENCY/SUBSTANCEABUSE PROGRAM, SOME INFORMATION MAY BE OMITTED. This clinical summary was aggregated from multiple sources. Caution should be exercised in using it in the provision of clinical care. This summary normalizes information from multiple sources, and as a consequence, information in this document may materially change the coding, format and clinical context of patient data. In addition, data may be omitted in some cases. CLINICAL DECISIONS SHOULD BE BASED ON THE PRIMARY CLINICAL RECORDS. [facility]. provides no warranty or guarantee of the accuracy or completeness of information in this document.
[2025-10-06 17:00] VITALS: BP 133/78; PULSE 79; RESP 18; O2SAT 100
--- NOTE | 2025-10-06 17:09 | CT_ITS ---
PROCEDURE: CT ABDOMEN/PELVIS W IV CONT ONLY 10/06/2025 REASON FOR EXAM: ABDOMINAL PAIN TECHNIQUE: Procedure Code: [id number] Modality: CT Procedure: ABDOMEN/PELVIS W IV CONT ONLY Coronal and Sagittal reconstruction series were provided. CONTRAST: Isovue-300 VOLUME: 91 mL One or more dose reduction techniques were used (e.g., Automated exposure control, adjustment of the mA and/or kV according to patient size, use of iterative reconstruction technique. RADIATION DOSE SUMMARY: DLP: 1006.77 mGycm COMPARISON: 08/27/2022 FINDINGS: Lung bases: Clear. Liver: Mild diffuse hepatic steatosis. Gallbladder: Unremarkable. Spleen: Unremarkable. Pancreas: Unremarkable Adrenals: Unremarkable. Kidneys: Unremarkable. No urolithiasis or hydronephrosis. Bladder: Collapsed, limiting evaluation. No pericystic inflammatory changes. Reproductive Organs: Prior hysterectomy. Unremarkable adnexal regions. Bowel: No evidence of obstruction or active inflammation. Normal appendix. Lymph nodes: No enlarged abdominopelvic lymph nodes. Vasculature: Normal in course and caliber. Peritoneum / Retroperitoneum: No ascites or free air. Bones: No significant abnormality. CT/Abdomen/Pelvis W IV Cont ONLY IMPRESSION: No acute intra-abdominal pathology. Reading Location: [id number]
--- NOTE | 2025-10-06 17:10 | EDS_ITS ---
HPI HPI - GI History of Present Illness Chief Complaint: Abd Pain Informant: patient Abdominal Pain/Flank Pain Onset: Yesterday Context: Gradual Onset Timing: Continuous Quality: Aching and Stabbing (With coughing) Location: RLQ Worsened by: - (Coughing) Relieved by: Nothing Nausea/Vomiting/Emesis GI Symptom: Positive for Nausea; Negative for Vomiting Diarrhea/Melena/Hematochezia GI Symptom: Negative for Diarrhea, Melena or Hematochezia Associated Symptoms Associated Symptoms: Negative for Dysuria, Frequency or Hematuria LMP: Hysterectomy Narrative Narrative: Patient presents with abdominal pain that began yesterday patient states it is gradually getting worse. Patient states it is constant. Patient states it started diffusely but is now progressed to the right lower quadrant. Patient states her pain is stabbing with coughing. Patient admits to decreased appetite and nausea. Patient denies any vomiting. Patient denies any diarrhea, melena, or hematochezia. Patient denies any dysuria, frequency, or hematuria. Patient denies any fevers or chills. PFSH PFS Medical History Acid reflux Chronic neck and back pain Severe headache Endometriosis Ectopic History of PCOS History of ovarian cyst Home Medications ?Medication ?Instructions ?Recorded ?Last Taken ?Type metformin 500 mg tablet 500 mg PO DAILY 04/14/24 Unk nown History spironolactone 50 mg tablet 50 mg PO BID 04/14/24 Unkn own History carbamazepine 100 mg 100 mg PO BID #20 tabs 01/11 Unknown Rx tablet,extended release,12 hr rosuvastatin 5 mg tablet (Crestor) 10 mg PO DAILY 12/31 12/27 Unknown History orphenadrine citrate 100 mg 100 mg PO Q12H PRN muscle pain #14 03/02/25 Unknown Rx tablet,extended release tabs estradiol 0.075 mg/24 hr 1 patch transdermal 2XW #8 e a 06/29/25 Unknown Rx semiweekly transdermal patch (Vivelle-Dot) Allergy/AdvReac Type Severity Reaction Status Date / Time Sulfa (Sulfonamide Allergy Mild Rash Verified 10/06/25 15:39 Antibiotics) clindamycin Allergy Rash Verified 10/06/25 15:39 Family History Grandfather Diabetes Heart disease Surgical History H/O unilateral oophorectomy (~01/30/21) History of right oophorectomy History of LAVH [place] teeth extracted History of laparoscopy Social History household members: family and children housing: house current occupational status: employed Smoking Status: Current every day smoker tobacco type: cigarettes alcohol intake: former details: social substance use type: does not use caffeine: Yes what type of physical activity do you participate in: none seatbelt use: always do you feel safe at home: Yes 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 CBC will be obtained to assess for leukocytosis and anemia. Comprehensive metabolic profile will be obtained to assess for hepatic function, renal function, and electrolyte abnormality. Lipase will be obtained to assess for pancreatitis. Urinalysis will be obtained to assess for urinary tract infection and hematuria. Serum hCG will be obtained to assess for . Lab Data Attestation: I reviewed the patient's lab results. Lab results narrative: CBC was reviewed. There is a mild leukocytosis of 12.2. Serum hCG was reviewed and was negative. Urinalysis was reviewed. Leukocyte esterase was negative. There are 5-10 white blood cells and 1+ bacteria. Comprehensive metabolic profile was reviewed and was within normal limits. Lipase was reviewed and was normal at 15. Labs: Laboratory Results - last 24 hr 10/06/25 10/06/25 15:50 16:40 WBC 12.2 H RBC 4.83 Hgb 15.0 Hct 43.5 MCV 90.1 MCH 31.1 MCHC 34.5 RDW Std Deviation 43.1 RDW Coeff of Benji 13.2 Plt Count 366 MPV 10.3 Immature Gran % (Auto) 0.500 Neut % (Auto) 57.4 Lymph % (Auto) 33.7 [place] % (Auto) 4.8 Eos % (Auto) 2.9 Baso % (Auto) 0.7 Absolute Neuts (auto) 7.0 Absolute Lymphs (auto) 4.11 Nucleated RBC % 0 Sodium Cancelled 138 Potassium Cancelled 3.9 Chloride Cancelled 104 Carbon Dioxide Cancelled 21.3 Anion Gap Cancelled 13 BUN Cancelled 9 Creatinine Cancelled 0.66 L Estim Creat Clear Calc Cancelled 115.08 Est GFR (MDRD) Non-Af Cancelled 116 BUN/Creatinine Ratio Cancelled 14.1 Glucose Cancelled 95 Calcium Cancelled 9.4 Total Bilirubin Cancelled 0.26 AST Cancelled 21 ALT Cancelled 20 Alkaline Phosphatase Cancelled 73 Total Protein Cancelled 7.1 Albumin Cancelled 4.3 Globulin Cancelled 2.8 Albumin/Globulin Ratio Cancelled 1.5 Lipase Cancelled 15 Serum , Qual NEGATIVE Urine Color Yellow Urine Clarity Clear Urine pH 5.0 Ur Specific Lolo 1.025 Urine Protein Negative Urine Glucose (UA) Normal Urine Ketones 15 H Urine Occult Blood 10 H Urine Nitrite Negative Urine Bilirubin Negative Urine Urobilinogen Normal Ur Leukocyte Esterase Negative Urine RBC 0-5 SEEN Urine WBC 5-10 SEEN Ur Squamous Epith Cells 0-5 SEEN Urine Bacteria 1+ Urine Mucus 0 SEEN Radiography Diagnostic Testing: Clinical Impression(s) from Imaging Studies Abdomen/Pelvis CT 10/06/25 17:09 IMPRESSION: No acute intra-abdominal pathology. Reading Location: [facility] [place] CT scan of the abdomen and pelvis was obtained. There is no acute intra- abdominal process noted. This was interpreted by the radiologist. I also independently reviewed the images. There is no evidence of appendicitis or bowel obstruction. There is no free air or free fluid. Treatment and Re-Evaluation :: Patient was given IV fluids, morphine, and Zofran. Patient was feeling better on reevaluation. Patient was advised of her findings. Patient was instructed to follow-up with her primary care physician in 5 to 7 days. Patient was instructed to return if worse in any way. Patient understood and was agreeable with the plan. All questions were answered. Discharge Plan Triage Chief Complaint: Abd Pain ED Provider: Ty Sage Dx/Rx/DC Orders Clinical Impression: Abdominal pain, Elevated blood pressure reading without diagnosis of hypertension, Tobacco use Instructions: ED Abdominal Pain Unkn Cause Fem Prescriptions: No Action metformin 500 mg tablet 500 mg PO DAILY spironolactone 50 mg tablet 50 mg PO BID rosuvastatin [Crestor] 5 mg tablet 10 mg PO DAILY carbamazepine 100 mg tablet extended release 12 hr 100 mg PO BID Qty: 20 0RF orphenadrine citrate 100 mg tablet extended release 100 mg PO Q12H PRN (Reason: muscle pain) Qty: 14 0RF estradiol [Vivelle-Dot] 0.075 mg/24 hr patch semiweekly 1 patch transdermal 2XW Qty: 8 2RF Rx Instructions: apply 1 patch for 3 days alternating with 1 patch for 4 days each week Primary Care Provider: Radha Graduno NP Referrals: Radha Garduno NP, SLUDGE FILTRATION ATTENDANT-C [Primary Care Provider, Medical] - 5-7 Days Print Language: [place] Disposition Disposition: Home, Self Care Discharge Date/Time: 10/06/25 19:20
[2025-10-06 17:14] LABS: Lipase 15 U/L (13-75)
[2025-10-06 17:15] LABS: AST(SGOT) 21 U/L (<=31); Alanine Aminotransfer ALT/SGPT 20 U/L (<=34); Albumin, Serum 4.3 g/dL (3.5-5.0); Alkaline Phosphatase 73 U/L (35-104); Anion Gap 13 (5-15); BUN 9 mg/dL (4-19); BUN/Creat Ratio 14.1 RATIO (10-20); Calcium,Total 9.4 mg/dL (7.6-11.0); Carbon Dioxide 21.3 mmol/L (21.0-32.0); Chloride 104 mmol/L (98-108); Estimated Creatinine Clearance 115.08 ml/min (50-250); Globulin 2.8 g/dL (2.2-4.2); Glucose 95 mg/dL (70-99); Potassium 3.9 mmol/L (3.3-5.1)
[2025-10-06] MEDS: 0.9% Normal Saline (1000mL) 1,000 ML 999 ML IV (17:21)
[2025-10-06 19:18] VITALS: BP 128/70; PULSE 79; RESP 18; TEMP 36.6; O2SAT 100
== END 2025-10-06 19:20 | disposition home or self-care (01) ==
PROVIDERS: Emergency Provider Emergency Medicine; PCP Registered Nurse; Visit Provider Emergency Medicine
DX: R10.31 Right lower quadrant pain (principal); R03.0 Elevated blood-pressure reading, without diagnosis of hypertension; F17.210 Nicotine dependence, cigarettes, uncomplicated
CPT/HCPCS: 74177; 80053; 81001; 83690; 84703; 85025; 96361; 96374; 96375; 99282; Q9967; A4216; J2405